=== PATIENT | male | born 1965 | race Two or more races ===

== ENCOUNTER → 2020-03-12 07:55 | Outpatient (BNVA) | payer OTHER, SELFPAY | PROVIDERS: PCP Internal Medicine; Visit Provider Internal Medicine | DX: I82.502 Chronic embolism and thrombosis of unspecified deep veins of left lower extremity (principal); Z51.81 Encounter for therapeutic drug level monitoring; Z79.01 Long term (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 of anticoagulants | CPT/HCPCS: 85610; 99211 ==

== ENCOUNTER → 2020-04-09 08:04 | Outpatient (BNVA) | payer OTHER, SELFPAY | PROVIDERS: PCP Internal Medicine; Visit Provider Internal Medicine | DX: I82.502 Chronic embolism and thrombosis of unspecified deep veins of left lower extremity (principal); Z51.81 Encounter for therapeutic drug level monitoring; Z79.01 Long term (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 of anticoagulants | CPT/HCPCS: 85610; 99211 ==

== ENCOUNTER → 2020-05-14 08:04 | Outpatient (BNVA) | payer OTHER, SELFPAY | PROVIDERS: PCP Internal Medicine; Visit Provider Internal Medicine | DX: I82.402 Acute embolism and thrombosis of unspecified deep veins of left lower extremity (principal); Z51.81 Encounter for therapeutic drug level monitoring; Z79.01 Long term (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 of anticoagulants | CPT/HCPCS: 85610; 99211 ==

== ENCOUNTER 2020-05-30 07:09 | Outpatient (REF) | payer OTHER, SELFPAY ==
[2020-05-30 07:58] LABS: MANUAL DIFF FLAG NO
[2020-05-30 08:14] LABS: Basophils Percent Auto 0.1 % (0-2); Eosinophils Percent Auto 0.1 % (0-4); Hematocrit 49.3 % (42-52); Hemoglobin 16.1 g/dl (14.0-18.0); Imm Gran Abs Auto 0.03 X10*3/uL (0.00-0.03); Imm Gran Pct Auto 0.4 % (0.0-0.4); Lymphocytes Absolute Auto 0.8 X10*3/uL (1.2-4.9); Lymphocytes Percent Auto 11.3 % (20-40); Mean Corpuscular HGB Conc 32.7 g/dl (31.0-36.0); Mean Corpuscular Hemoglobin 27.8 pg (27.0-33.0); Monocytes Absolute Auto 0.5 X10*3/uL (0.1-1.2); Monocytes Percent Auto 6.4 % (2-11); Neutrophils Absolute Auto 5.7 X10*3/uL (2.0-8.3); Neutrophils Percent Auto 81.7 % (45-73); Platelet Count 162 X10*3/uL (160-400); Red Cell Distribution Width 13.9 % (11.0-16.0); Retic HGB Equivalent 33.6 pg (30.0-35.0); Reticulocyte Percent 1.5 % (0.5-1.8); Reticulocytes Absolute 0.086 X10*6/uL (0.026-0.095)
[2020-05-30 08:43] LABS: Alanine Aminotransferase 38 U/L (0-40); Albumin Level 4.3 g/dL (3.5-5.0); Alkaline Phosphatase 111 U/L (39-117); Anion Gap 14 (12-20); Aspartate Amino Transferase 24 U/L (5-37); Bilirubin Total 1.1 mg/dL (0.0-1.0); Blood Urea Nitrogen 9 mg/dL (9-16); Calcium 9.1 mg/dL (8.4-10.2); Carbon Dioxide 25 mmol/L (22-29); Chloride 104 mmol/L (96-108); Cholesterol 205 mg/dL; Estimated Glomerular Filt Rate > 60; Glucose Random 118 mg/dL (60-115); HDL Cholesterol 63 mg/dL; Iron 56 mcg/dL (45-160); LDL Cholesterol Calculated 98 mg/dl; Percent Iron Saturation 17 % (15-50); Potassium 4.4 mmol/l (3.3-5.1); Sodium 139 mmol/L (135-145); Total Iron Binding Capacity 332 mcg/dL (228-428); Total Protein 7.8 g/dL (6.5-8.0); Triglycerides 220 mg/dL; Unsaturated Iron Binding 276 ug/dL
[2020-05-30 08:54] LABS: Erythrocyte Sedimentation Rate 5 MM/HR (0-15)
[2020-05-30 09:14] LABS: Ferritin 64 ng/mL (20-250); Free T4 (Free Thyroxine) 0.94 ng/dL (0.71-1.85); Prostate Specific Antigen Scr 1.64 ng/mL (<0.05-4.0); Thyroid Stimulating Hormone 0.23 uIU/mL (0.32-4.0)
[2020-05-30 10:07] LABS: Folate 10.9 ng/mL (> or = 4.0); Vitamin B12 564 pg/mL (200-900)
== END 2020-05-30 07:10 | disposition home or self-care (01) ==
LOC: HO.LAB 07:09
PROVIDERS: Visit Provider Internal Medicine
DX: K62.5 Hemorrhage of anus and rectum (principal); E78.00 Pure hypercholesterolemia, unspecified; D86.9 Sarcoidosis, unspecified; Z12.5 Encounter for screening for malignant neoplasm of prostate; I82.502 Chronic embolism and thrombosis of unspecified deep veins of left lower extremity; Z51.81 Encounter for therapeutic drug level monitoring; Z79.01 Long term (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 of anticoagulants
CPT/HCPCS: 36415; 80053; 80061; 82607; 82728; 82746; 83540; 84153; 84439; 84443; 85025; 85045; 85610; 85652; 99211

== ENCOUNTER → 2020-06-13 07:58 | Outpatient (BNVA) | payer OTHER, SELFPAY | PROVIDERS: PCP Internal Medicine; Visit Provider Internal Medicine | DX: I82.502 Chronic embolism and thrombosis of unspecified deep veins of left lower extremity (principal); Z51.81 Encounter for therapeutic drug level monitoring; Z79.01 Long term (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 of anticoagulants | CPT/HCPCS: 85610; 99211 ==

== ENCOUNTER → 2020-06-28 08:03 | Outpatient (BNVA) | payer OTHER, SELFPAY | PROVIDERS: PCP Internal Medicine; Visit Provider Internal Medicine | DX: I82.502 Chronic embolism and thrombosis of unspecified deep veins of left lower extremity (principal); Z51.81 Encounter for therapeutic drug level monitoring; Z79.01 Long term (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 of anticoagulants | CPT/HCPCS: 85610; 99211 ==

== ENCOUNTER 2020-07-03 05:56 | Outpatient (REF) | payer OTHER, SELFPAY ==
[2020-07-03 07:41] LABS: Estimated Average Glucose 120 mg/dL; Hemoglobin A1c % 5.8 %
[2020-07-03 08:36] LABS: Free T4 (Free Thyroxine) 0.93 ng/dL (0.71-1.85); Thyroid Stimulating Hormone 1.09 uIU/mL (0.32-4.0)
== END 2020-07-03 05:57 | disposition home or self-care (01) ==
LOC: HO.LAB 05:56
PROVIDERS: PCP Internal Medicine; Visit Provider Internal Medicine
DX: R79.89 Other specified abnormal findings of blood chemistry (principal)
CPT/HCPCS: 36415; 83036; 84439; 84443

== ENCOUNTER → 2020-07-17 08:00 | Outpatient (BNVA) | payer OTHER, SELFPAY | PROVIDERS: PCP Internal Medicine; Visit Provider Internal Medicine | DX: I82.402 Acute embolism and thrombosis of unspecified deep veins of left lower extremity (principal); Z51.81 Encounter for therapeutic drug level monitoring; Z79.01 Long term (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 of anticoagulants | CPT/HCPCS: 85610; 99211 ==

== ENCOUNTER → 2020-08-14 07:59 | Outpatient (BNVA) | payer OTHER, SELFPAY | PROVIDERS: PCP Internal Medicine; Visit Provider Internal Medicine | DX: I82.402 Acute embolism and thrombosis of unspecified deep veins of left lower extremity (principal); Z51.81 Encounter for therapeutic drug level monitoring; Z79.01 Long term (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 of anticoagulants | CPT/HCPCS: 85610; 99211 ==

== ENCOUNTER → 2020-09-11 08:01 | Outpatient (BNVA) | payer OTHER, SELFPAY | PROVIDERS: PCP Internal Medicine; Visit Provider Internal Medicine | DX: I82.402 Acute embolism and thrombosis of unspecified deep veins of left lower extremity (principal); Z51.81 Encounter for therapeutic drug level monitoring; Z79.01 Long term (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 of anticoagulants | CPT/HCPCS: 85610; 99211 ==

== ENCOUNTER → 2020-10-03 07:59 | Outpatient (BNVA) | payer OTHER, SELFPAY | PROVIDERS: PCP Internal Medicine; Visit Provider Internal Medicine | DX: I82.402 Acute embolism and thrombosis of unspecified deep veins of left lower extremity (principal); Z51.81 Encounter for therapeutic drug level monitoring; Z79.01 Long term (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 of anticoagulants | CPT/HCPCS: 85610; 99211 ==

== ENCOUNTER → 2020-10-15 07:57 | Outpatient (BNVA) | payer OTHER, SELFPAY | PROVIDERS: PCP Internal Medicine; Visit Provider Internal Medicine | DX: I82.402 Acute embolism and thrombosis of unspecified deep veins of left lower extremity (principal); Z51.81 Encounter for therapeutic drug level monitoring; Z79.01 Long term (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 of anticoagulants | CPT/HCPCS: 85610; 99211 ==

== ENCOUNTER → 2020-10-29 08:02 | Outpatient (BNVA) | payer OTHER, SELFPAY | PROVIDERS: PCP Internal Medicine; Visit Provider Internal Medicine | DX: I82.402 Acute embolism and thrombosis of unspecified deep veins of left lower extremity (principal); Z51.81 Encounter for therapeutic drug level monitoring; Z79.01 Long term (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 of anticoagulants | CPT/HCPCS: 85610; 99211 ==

== ENCOUNTER 2020-11-18 06:01 | Outpatient (REF) | payer OTHER, SELFPAY ==
--- NOTE | ~2020-11-18 | XR_ITS ---
EXAMINATION: XR CHEST CLINICAL INFORMATION: Cough COMPARISON: Previous chest x-ray June 2015 TECHNIQUE: 2 views of the chest were obtained. FINDINGS: The cardiac and mediastinal contours are stable. There is elevation of the right hemidiaphragm that is stable. There is atelectasis or small infiltrates at the lung bases, right greater than left. There are surgical clips at the right lung apex. There is no pleural effusion or pneumothorax. Bony structures are unremarkable. XR/XR chest 2V IMPRESSION: Marked elevation of the right hemidiaphragm. Atelectasis or small infiltrates at the lung bases, right greater than left.
== END 2020-11-18 06:02 | disposition home or self-care (01) ==
LOC: HO.XRAY 06:01
PROVIDERS: Visit Provider Internal Medicine
DX: R05 Cough (principal)
CPT/HCPCS: 71046

== ENCOUNTER → 2020-11-25 07:58 | Outpatient (BNVA) | payer OTHER, SELFPAY | PROVIDERS: PCP Internal Medicine; Visit Provider Internal Medicine | DX: I82.402 Acute embolism and thrombosis of unspecified deep veins of left lower extremity (principal); Z51.81 Encounter for therapeutic drug level monitoring; Z79.01 Long term (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 of anticoagulants | CPT/HCPCS: 85610; 99211 ==

== ENCOUNTER → 2020-12-26 08:04 | Outpatient (BNVA) | payer OTHER, SELFPAY | PROVIDERS: PCP Internal Medicine; Visit Provider Internal Medicine | DX: I82.402 Acute embolism and thrombosis of unspecified deep veins of left lower extremity (principal); Z51.81 Encounter for therapeutic drug level monitoring; Z79.01 Long term (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 of anticoagulants | CPT/HCPCS: 85610; 99211 ==

== ENCOUNTER → 2021-01-09 07:59 | Outpatient (BNVA) | payer OTHER, SELFPAY | PROVIDERS: PCP Internal Medicine; Visit Provider Internal Medicine | DX: I82.402 Acute embolism and thrombosis of unspecified deep veins of left lower extremity (principal); Z51.81 Encounter for therapeutic drug level monitoring; Z79.01 Long term (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 of anticoagulants | CPT/HCPCS: 85610; 99211 ==

== ENCOUNTER → 2021-01-14 15:26 | Outpatient (BNVA) | payer OTHER, SELFPAY | PROVIDERS: PCP Internal Medicine; Visit Provider Internal Medicine | DX: I82.402 Acute embolism and thrombosis of unspecified deep veins of left lower extremity (principal); Z51.81 Encounter for therapeutic drug level monitoring; Z79.01 Long term (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 of anticoagulants | CPT/HCPCS: 85610; 99211 ==

== ENCOUNTER → 2021-01-21 15:26 | Outpatient (BNVA) | payer OTHER, SELFPAY | PROVIDERS: PCP Internal Medicine; Visit Provider Internal Medicine | DX: I82.402 Acute embolism and thrombosis of unspecified deep veins of left lower extremity (principal); Z51.81 Encounter for therapeutic drug level monitoring; Z79.01 Long term (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 of anticoagulants | CPT/HCPCS: 85610; 99211 ==

== ENCOUNTER → 2021-02-04 15:19 | Outpatient (BNVA) | payer OTHER, SELFPAY | PROVIDERS: PCP Internal Medicine; Visit Provider Internal Medicine | DX: I82.402 Acute embolism and thrombosis of unspecified deep veins of left lower extremity (principal); Z51.81 Encounter for therapeutic drug level monitoring; Z79.01 Long term (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 of anticoagulants | CPT/HCPCS: 85610; 99211 ==

== ENCOUNTER 2021-02-06 05:57 | Outpatient (REF) | payer OTHER, SELFPAY ==
[2021-02-06 06:13] LABS: MANUAL DIFF FLAG NO
[2021-02-06 07:20] LABS: Basophils Percent Auto 0.3 % (0-2); Eosinophils Percent Auto 0.5 % (0-4); Hematocrit 47.6 % (42-52); Hemoglobin 15.8 g/dl (14.0-18.0); Imm Gran Abs Auto 0.02 X10*3/uL (0.00-0.03); Imm Gran Pct Auto 0.3 % (0.0-0.4); Lymphocytes Absolute Auto 0.7 X10*3/uL (1.2-4.9); Lymphocytes Percent Auto 12.1 % (20-40); Mean Corpuscular HGB Conc 33.2 g/dl (31.0-36.0); Mean Corpuscular Hemoglobin 28.3 pg (27.0-33.0); Mean Corpuscular Volume 85.3 fL (80-98); Monocytes Absolute Auto 0.4 X10*3/uL (0.1-1.2); Neutrophils Absolute Auto 4.7 X10*3/uL (2.0-8.3); Neutrophils Percent Auto 80.8 % (45-73); Platelet Count 152 X10*3/uL (160-400); Red Blood Count 5.58 X10*6/uL (4.60-5.80); Red Cell Distribution Width 14.1 % (11.0-16.0); White Blood Count 5.8 X10*3/uL (4.8-10.8)
[2021-02-06 08:02] LABS: Alanine Aminotransferase 42 U/L (0-40); Albumin Level 4.2 g/dL (3.5-5.0); Alkaline Phosphatase 97 U/L (39-117); Anion Gap 13 (12-20); Aspartate Amino Transferase 32 U/L (5-37); Bilirubin Total 2.5 mg/dL (0.0-1.0); Blood Urea Nitrogen 12 mg/dL (9-16); Calcium 10.1 mg/dL (8.4-10.2); Carbon Dioxide 28 mmol/L (22-29); Chloride 105 mmol/L (96-108); Cholesterol 204 mg/dL; Estimated Glomerular Filt Rate > 60; Glucose Random 124 mg/dL (60-115); HDL Cholesterol 63 mg/dL; LDL Cholesterol Calculated 120 mg/dl; Potassium 5.5 mmol/L (3.3-5.1); Sodium 140 mmol/L (135-145); Total Protein 7.8 g/dL (6.5-8.0); Triglycerides 105 mg/dL
[2021-02-06 08:09] LABS: Free T4 (Free Thyroxine) 0.95 ng/dL (0.71-1.85); Thyroid Stimulating Hormone 0.34 uIU/mL (0.32-4.0)
[2021-02-06 08:27] LABS: Estimated Average Glucose 126 mg/dL
== END 2021-02-06 05:58 | disposition home or self-care (01) ==
LOC: HO.LAB 05:57
PROVIDERS: PCP Internal Medicine; Visit Provider Internal Medicine
DX: E78.00 Pure hypercholesterolemia, unspecified (principal)
CPT/HCPCS: 36415; 80053; 80061; 83036; 84439; 84443; 85025

== ENCOUNTER → 2021-02-13 15:25 | Outpatient (BNVA) | payer OTHER, SELFPAY | PROVIDERS: PCP Internal Medicine; Visit Provider Internal Medicine | DX: I82.402 Acute embolism and thrombosis of unspecified deep veins of left lower extremity (principal); Z51.81 Encounter for therapeutic drug level monitoring; Z79.01 Long term (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 of anticoagulants | CPT/HCPCS: 85610; 99211 ==

== ENCOUNTER → 2021-02-20 15:36 | Outpatient (BNVA) | payer OTHER, SELFPAY | PROVIDERS: PCP Internal Medicine; Visit Provider Internal Medicine | DX: I82.402 Acute embolism and thrombosis of unspecified deep veins of left lower extremity (principal); Z51.81 Encounter for therapeutic drug level monitoring; Z79.01 Long term (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 of anticoagulants | CPT/HCPCS: 85610; 99211 ==

== ENCOUNTER → 2021-03-06 15:36 | Outpatient (BNVA) | payer OTHER, SELFPAY | PROVIDERS: PCP Internal Medicine; Visit Provider Internal Medicine | DX: I82.402 Acute embolism and thrombosis of unspecified deep veins of left lower extremity (principal); Z51.81 Encounter for therapeutic drug level monitoring; Z79.01 Long term (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 of anticoagulants | CPT/HCPCS: 85610 ==

== ENCOUNTER 2021-03-13 15:34 | Outpatient (REF) | payer OTHER, SELFPAY ==
[2021-03-13 16:22] LABS: Prothrombin Time 66.1 SEC (9.9-13.0)
[2021-03-13 16:23] LABS: INTERNATIONAL NORM RATIO 5.6 (0.9-1.1)
== END 2021-03-13 15:35 | disposition home or self-care (01) ==
LOC: HO.LAB 15:34
PROVIDERS: PCP Internal Medicine; Visit Provider Internal Medicine
DX: I82.402 Acute embolism and thrombosis of unspecified deep veins of left lower extremity (principal); Z51.81 Encounter for therapeutic drug level monitoring; Z79.01 Long term (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 of anticoagulants
CPT/HCPCS: 36415; 85610; 99212

== ENCOUNTER → 2021-03-17 15:16 | Outpatient (BNVA) | payer OTHER, SELFPAY | PROVIDERS: PCP Internal Medicine; Visit Provider Internal Medicine | DX: I82.402 Acute embolism and thrombosis of unspecified deep veins of left lower extremity (principal); Z51.81 Encounter for therapeutic drug level monitoring; Z79.01 Long term (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 of anticoagulants | CPT/HCPCS: 85610; 99211 ==

== ENCOUNTER 2021-03-19 05:58 | Outpatient (REF) | payer OTHER, SELFPAY ==
[2021-03-19 08:20] LABS: Anion Gap 13 (12-20); Bilirubin Direct 0.7 mg/dL (0.0-0.5); Blood Urea Nitrogen 13 mg/dL (9-16); Calcium 9.3 mg/dL (8.4-10.2); Carbon Dioxide 29 mmol/L (22-29); Chloride 104 mmol/L (96-108); Estimated Glomerular Filt Rate > 60; Glucose Random 128 mg/dL (60-115); Potassium 4.6 mmol/L (3.3-5.1); Sodium 141 mmol/L (135-145)
[2021-03-19 08:29] LABS: Lactate Dehydrogenase 217 U/L (118-273)
[2021-03-19 08:39] LABS: Prostate Specific Antigen Scr 2.23 ng/mL (<0.05-4.0)
[2021-03-20 19:32] LABS: Haptoglobin 168 mg/dL (43-212)
== END 2021-03-19 05:59 | disposition home or self-care (01) ==
LOC: HO.LAB 05:58
PROVIDERS: PCP Internal Medicine; Visit Provider Internal Medicine
DX: Z12.5 Encounter for screening for malignant neoplasm of prostate (principal); R79.89 Other specified abnormal findings of blood chemistry; I82.409 Acute embolism and thrombosis of unspecified deep veins of unspecified lower extremity; E87.5 Hyperkalemia
CPT/HCPCS: 36415; 80048; 82248; 83010; 83615; 84153

== ENCOUNTER → 2021-03-24 16:08 | Outpatient (BNVA) | payer OTHER, SELFPAY | PROVIDERS: PCP Internal Medicine; Visit Provider Internal Medicine | DX: I82.402 Acute embolism and thrombosis of unspecified deep veins of left lower extremity (principal); Z51.81 Encounter for therapeutic drug level monitoring; Z79.01 Long term (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 of anticoagulants | CPT/HCPCS: 85610; 99211 ==

== ENCOUNTER 2021-03-26 15:40 | Outpatient (REF) | payer OTHER, SELFPAY ==
--- NOTE | ~2021-03-26 | US_ITS ---
EXAMINATION: US VENOUS ULTRASOUND WITH DOPPLER LOWER EXTREMITY, RIGHT CLINICAL INFORMATION: Right lower extremity pain. Assess for occult DVT COMPARISON: None TECHNIQUE: Ultrasound of the deep veins is performed from the hip to the calf with compression sonography and color and pulse Doppler assessment. Spectral analysis with color-flow imaging is performed. FINDINGS: There is normal venous compression and respiratory variation and augmented flow. The visualized common femoral vein, superficial femoral vein, profunda femoral vein, popliteal vein, and the trifurcation region shows no evidence of deep venous thrombosis. No popliteal fossa cyst. Incidental node right inguinal region shows normal cody architecture and short axis dimension only 0.7 cm. US/US venous duplex LE RT IMPRESSION: No DVT demonstrated in the right lower extremity.
== END 2021-03-26 15:41 | disposition home or self-care (01) ==
LOC: HO.US 15:40
PROVIDERS: PCP Internal Medicine; Visit Provider Internal Medicine
DX: M79.604 Pain in right leg (principal)
CPT/HCPCS: 93971

== ENCOUNTER → 2021-04-07 08:12 | Outpatient (BNVA) | payer OTHER, SELFPAY | PROVIDERS: PCP Internal Medicine; Visit Provider Internal Medicine | DX: I82.402 Acute embolism and thrombosis of unspecified deep veins of left lower extremity (principal); Z51.81 Encounter for therapeutic drug level monitoring; Z79.01 Long term (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 of anticoagulants | CPT/HCPCS: 85610; 99211 ==

== ENCOUNTER 2021-04-09 07:11 | Outpatient (REF) | payer OTHER, SELFPAY ==
--- NOTE | ~2021-04-09 | US_ITS ---
EXAMINATION: US ABDOMEN COMPLETE CLINICAL INFORMATION: Other specified abnormal findings of blood chemistry. COMPARISON: Ultrasound 06/02/2007 TECHNIQUE: Real-time imaging of the abdominal viscera. Technically limited study secondary to bowel gas and body habitus. FINDINGS: Limited exam due to body habitus. PANCREAS: The head and the body of the pancreas are homogeneous in echotexture. ABDOMINAL AORTA: The proximal, mid, and distal segments are normal in caliber. INFERIOR VENA CAVA: Visualized portions are normal. LIVER: Normal. The liver is normal in size. The liver contour is normal. Parenchymal echogenicity is normal. Previously visualized cyst is not visualized. There is no intrahepatic biliary duct dilatation seen. GALLBLADDER: Normal. The gallbladder is physiologically distended without evidence of stones, sludge, polyps, wall thickening or pericholecystic fluid. COMMON BILE DUCT: Normal in caliber measuring 0.4 cm in diameter. RIGHT KIDNEY: Normal. No hydronephrosis. No renal calculi or focal parenchymal lesions. The kidney measures 9.7 cm in maximum dimension. LEFT KIDNEY: There is an echogenic stone in the upper pole measuring 0.3 x 0.2 cm. No caliectasis, hydronephrosis or focal parenchymal lesions. The kidney measures 9.5 cm in maximum dimension. SPLEEN: Normal. The spleen measures 9.2 cm in maximum dimension. FREE FLUID: None. US/US abdomen complete IMPRESSION: Small nonobstructive echogenic stone upper pole left kidney. Previously seen hepatic cyst in 2007 is not visualized at this time.
--- NOTE | 2021-04-15 15:06 | P.EN_ITS ---
Patient walked into the clinic today asking for Lovenox prescription. He is going to be scheduled for colonoscopy on . He usually gets bridged with Lovenox both pre and postoperatively because of protein S deficiency. I went over home dosing of Lovenox and a prescription for this was sent to [facility].
== END 2021-04-09 07:12 | disposition home or self-care (01) ==
LOC: HO.US 07:11
PROVIDERS: PCP Internal Medicine; Visit Provider Internal Medicine
DX: R79.89 Other specified abnormal findings of blood chemistry (principal); I82.409 Acute embolism and thrombosis of unspecified deep veins of unspecified lower extremity
CPT/HCPCS: 76700

== ENCOUNTER → 2021-04-15 14:38 | Outpatient (BNVA) | payer OTHER, SELFPAY | PROVIDERS: PCP Internal Medicine; Visit Provider Internal Medicine | DX: I82.402 Acute embolism and thrombosis of unspecified deep veins of left lower extremity (principal); Z51.81 Encounter for therapeutic drug level monitoring; Z79.01 Long term (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 of anticoagulants | CPT/HCPCS: 85610; 99211 ==

== ENCOUNTER → 2021-04-22 07:59 | Outpatient (BNVA) | payer OTHER, SELFPAY | PROVIDERS: PCP Internal Medicine; Visit Provider Internal Medicine | DX: I82.402 Acute embolism and thrombosis of unspecified deep veins of left lower extremity (principal); Z51.81 Encounter for therapeutic drug level monitoring; Z79.01 Long term (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 of anticoagulants | CPT/HCPCS: 85610; 99211 ==

== ENCOUNTER → 2021-04-29 15:47 | Outpatient (BNVA) | payer OTHER, SELFPAY | PROVIDERS: PCP Internal Medicine; Visit Provider Internal Medicine | DX: I82.402 Acute embolism and thrombosis of unspecified deep veins of left lower extremity (principal); Z51.81 Encounter for therapeutic drug level monitoring; Z79.01 Long term (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 of anticoagulants | CPT/HCPCS: 85610; 99211 ==

== ENCOUNTER 2021-05-05 06:56 | Day surgery (SDC) | payer OTHER, SELFPAY ==
[2021-04-28 15:42] VITALS: BMI 29.2
--- NOTE | 2021-05-01 09:32 | P.CONAN_ITS ---
Documented by User: Mya Landrum NP 05/01/21 09:33 HPI - Anesthesia Eval Consult details Narrative: 55yo M for Colonoscopy Coumadin for DVT PMFSH Active Problems Active Problems: All Active Problems (Updated 04/10/21 @ 07:39 by Jaz Myers MD) Current use of anticoagulant therapy (Acute) Rectal bleeding (Acute) Low TSH level (Acute) Cough (Acute) Rectal bleeding (Acute) Impaired glucose tolerance (Acute) DVT (deep venous thrombosis) (Acute) Hyperkalemia (Acute) Overweight (BMI 25.0-29.9) (Acute) LFT elevation (Acute) Annual physical exam (Acute) Right inguinal hernia (Acute) Leg pain, right (Acute) Renal calculus, left (Acute) Protein S deficiency (Acute) Hypercholesterolemia (Acute) BPH (benign prostatic hyperplasia) (Acute) Sarcoid (Acute) Past Medical History Medical History (Updated 04/10/21 @ 07:39 by Jaz Myers MD) BPH (benign prostatic hyperplasia) DVT (deep venous thrombosis) Glaucoma Hypercholesterolemia Protein S deficiency Sarcoid Thrombocytopenia Vitamin D deficiency Family History Family History Mother No problems noted. Father Medical history unknown Daughter In good health Sister In good health Surgical History Surgical History (Updated 04/28/21 @ 15:44 by Mami Solares RN) History of appendectomy History of sinus surgery History of umbilical hernia repair Hx of colonoscopy Social History Social History (Updated 03/24/21 @ 18:11 by Jaz Myers MD) Housing: House Alcohol intake: current Alcohol intake frequency: holidays/special occasions only Patient Tobacco Use Status: Never used Tobacco e-Cigarette/Vaping Use: Never Used Second Hand Smoke Exposure: No Use of substances other than those prescribed or required for medical reasons: No Are you DNR?: No Advance Directives: No Advance Directives Information Provided: Yes Advance Directives on File: No service: No Current occupational status: employed Meds Allergies Allergy/AdvReac Type Severity Reaction Status Date / Time No Known Allergies Allergy Verified 04/29/21 15:47 [No Known Allergies*] Home Medications Medication Instructions Recorded Confirmed Last Taken Type dorzolamide 22.3 mg-timolol 6.8 1 drp OPHTHALMIC-RIGHT Q12H 12/26/20 04/29/21 Unknown History mg/mL eye drops prednisone 20 mg tablet 20 mg PO BEDTIME 03/06/21 04/29/21 Unknown History bisacodyl 5 mg tablet,delayed mg PO 03/24/21 04/29/21 Unknown History release polyethylene glycol 3350 17 g PO 03/24/21 04/29/21 Unknown History gram/dose oral powder (Gavilax) Exam Exam Date and Time: May 01, 2021 0932 Height,Weight and Vital Signs: Height 5 ft 4 in Weight 77.111 kg Pertinent Lab Results Pertinent Lab Results: Laboratory Tests 02/06/21 03/19/21 06:10 06:04 WBC 5.8 Hgb 15.8 Hct 47.6 Plt Count 152 L Sodium 141 Potassium 4.6 Chloride 104 Carbon Dioxide 29 BUN 13 Creatinine 1.06 Assessment and Plan Assessment Anesthesia Assessment: Chart Reviewed Documented by User: Reinaldo Drake MD 05/05/21 07:16 [facility], [facility] Past Medical History Medical History (Updated 04/10/21 @ 07:39 by Jaz Myers MD) BPH (benign prostatic hyperplasia) DVT (deep venous thrombosis) Glaucoma Hypercholesterolemia Protein S deficiency Sarcoid Thrombocytopenia Vitamin D deficiency Family History Family History Mother No problems noted. Father Medical history unknown Daughter In good health Sister In good health Family history of problems with anesthesia: No Surgical History Surgical History (Updated 04/28/21 @ 15:44 by Mami Solares RN) History of appendectomy History of sinus surgery History of umbilical hernia repair Hx of colonoscopy History of Problems with Anesthesia: No Social History Social History (Updated 03/24/21 @ 18:11 by Jaz Myers MD) Housing: House Alcohol intake: current Alcohol intake frequency: holidays/special occasions only Patient Tobacco Use Status: Never used Tobacco e-Cigarette/Vaping Use: Never Used Second Hand Smoke Exposure: No Use of substances other than those prescribed or required for medical reasons: No Are you DNR?: No Advance Directives: No Advance Directives Information Provided: Yes Advance Directives on File: No service: No Current occupational status: employed Meds Allergies Allergy/AdvReac Type Severity Reaction Status Date / Time No Known Allergies Allergy Verified 04/29/21 15:47 [No Known Allergies*] Home Medications Medication Instructions Recorded Confirmed Last Taken Type dorzolamide 22.3 mg-timolol 6.8 1 drp OPHTHALMIC-RIGHT Q12H 12/26/20 04/29/21 Unknown History mg/mL eye drops prednisone 20 mg tablet 20 mg PO BEDTIME 03/06/21 04/29/21 Unknown History bisacodyl 5 mg tablet,delayed mg PO 03/24/21 04/29/21 Unknown History release polyethylene glycol 3350 17 g PO 03/24/21 04/29/21 Unknown History gram/dose oral powder (Gavilax) Exam Airway Mallampati Class: II TM Dist: >3cm Neck ROM: Full Assessment and Plan Assessment Anesthesia Assessment: Anesthesia Plan Discussed Final Anesthetic Review Family History of Problems with Anesthesia: No History of Problems with Anesthesia: No NPO: Yes ASA Class: III Final Preanesthetic Review: No Changes in Pt Med Stat, Meds/Allgs Chart Reviewed, Consent Obtained/Reviewed and Anes Risks/Benef Reviewed Patient Risk: Intermediate Procedure Risk: Low Anesthetic Plan Anesthetic Plan: MAC: Disposition: Standard PACU
[2021-05-05 07:09] VITALS: BP 144/89; PULSE 92; RESP 16; TEMP 37.4; O2SAT 95
[2021-05-05] MEDS: Lactated Ringers 1,000 ML 100 ML IVCONT (07:15)
[2021-05-05 07:35] LABS: Prothrombin Time 11.6 SEC (9.9-13.0)
[2021-05-05 08:30] VITALS: BP 98/62; PULSE 87; RESP 20; TEMP 36.3; O2SAT 99
--- NOTE | 2021-05-05 08:41 | PM.OP ---
Brief Operative Note Date of Service: 05/05/21 Pre-op diagnosis: Rectal bleeding, Hx of polyp Post-op diagnosis: other (Colon polyp, Internal hemorrhoids) Procedure: Colonoscopy to the cecum and TI with biopsies Surgeon: Mason Rock Anesthesia: MAC Was an Laboratory Mechanic Helper used for this Procedure?: No Estimated blood loss (mL): 2.0 Pathology: other (A. Ascending colon polyp) Condition: stable Disposition: PACU
[2021-05-05 08:45] VITALS: BP 100/65; PULSE 79; RESP 20; TEMP 36.3; O2SAT 96
[2021-05-05 09:03] VITALS: BP 104/71
--- NOTE | 2021-05-05 09:31 | OP_ITS ---
SURGEON: Mason Rock MD INDICATIONS: The patient presents for followup of personal history of tubular adenoma of the colon and intermittent hematochezia. Full consent obtained from him for this, including risks of bleeding and perforation. PREOPERATIVE DIAGNOSIS: Personal history of tubular adenoma of the colon and rectal bleeding. POSTOPERATIVE DIAGNOSIS: Personal history of tubular adenoma of the colon and rectal bleeding, small colon polyp, internal hemorrhoids, mild diverticulosis. PROCEDURE PERFORMED: Colonoscopy to the cecum and terminal ileum with biopsy and removal of polyp. ESTIMATED BLOOD LOSS: COMPLICATIONS: ANESTHESIA: Monitored anesthesia care. ASSISTANTS: SPECIMENS: DESCRIPTION OF PROCEDURE: The patient was placed in the left lateral decubitus position. Digital rectal exam revealed no abnormalities. The Olympus video pediatric colonoscope was entered into the rectum and advanced easily to the cecum. Once in the cecum, I did identify normal-appearing cecal pouch with appendiceal orifice and a normal-appearing ileocecal valve. The terminal ileum was cannulated and appeared normal. The scope was withdrawn back in the colon. The entire cecum and ileocecal valve appeared normal. The scope was then slowly withdrawn assessing all mucosal surfaces carefully. Preparation was excellent. In the proximal ascending colon, there was approximately 2 or 3 mm polyp, which was biopsied and completely removed with cold biopsy forceps. I did not visualize any other polyps, colitis, or angiodysplasia. There was a mild amount of sigmoid diverticulosis. Once in the rectum, scope was retroflexed visualizing internal hemorrhoids. These were somewhat friable. These were also visualized in the forward viewing position in the anal canal as well. The remainder of the rectum appeared normal. The scope was withdrawn from the patient. He tolerated the procedure well and was returned to recovery area in stable condition. IMPRESSION: 1. Small colon polyp, status post biopsy removal. 2. Mild sigmoid diverticulosis. 3. Prominent internal hemorrhoids. PLAN: The results of biopsy will be checked. Given his previous history, I would recommend a repeat colonoscopy in 3 years for further screening and surveillance. In regard to his hemorrhoids and ongoing bleeding, I have recommended that he see Dr. Serrato for that. In the meantime, he was advised to resume his Coumadin today at the normal dose and have it adjusted either by the [facility] or by Dr. Calabrese. He was also advised to resume his Lovenox tomorrow and have that adjusted per the [facility] or Dr. Calabrese as well. He will otherwise see me on a p.r.n. basis. MD ALLISON Lara/ERMELINDA / [id number]
== END 2021-05-05 09:31 | disposition home or self-care (01) ==
PROVIDERS: Nurse Practitioner; PCP Internal Medicine; Visit Provider Internal Medicine
PROC: 0DJD8ZZ Inspection of Lower Intestinal Tract, Via Natural or Artificial Opening Endoscopic (ICD-10-PCS; CPT 45378; principal; 2021-05-05 07:30)
DX: K62.5 Hemorrhage of anus and rectum (principal); Z86.010 Personal history of colon polyps; K63.5 Polyp of colon; K64.8 Other hemorrhoids; D68.59 Other primary thrombophilia; E55.9 Vitamin D deficiency, unspecified; D86.89 Sarcoidosis of other sites; Z79.52 Long term (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 of systemic steroids; Z86.718 Personal history of other venous thrombosis and embolism; Z79.01 Long term (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 of anticoagulants
CPT/HCPCS: 45380; 36415; 85610; 88305

== ENCOUNTER → 2021-05-08 14:52 | Outpatient (BNVA) | payer OTHER, SELFPAY | PROVIDERS: PCP Internal Medicine; Visit Provider Internal Medicine | DX: I82.402 Acute embolism and thrombosis of unspecified deep veins of left lower extremity (principal); Z51.81 Encounter for therapeutic drug level monitoring; Z79.01 Long term (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 of anticoagulants | CPT/HCPCS: 85610; 99211 ==

== ENCOUNTER → 2021-05-13 14:46 | Outpatient (BNVA) | payer OTHER, SELFPAY | PROVIDERS: PCP Internal Medicine; Visit Provider Internal Medicine | DX: I82.402 Acute embolism and thrombosis of unspecified deep veins of left lower extremity (principal); Z51.81 Encounter for therapeutic drug level monitoring; Z79.01 Long term (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 of anticoagulants | CPT/HCPCS: 85610; 99211 ==

== ENCOUNTER → 2021-05-16 08:15 | Outpatient (BNVA) | payer OTHER, SELFPAY | PROVIDERS: PCP Internal Medicine; Visit Provider Internal Medicine | DX: I82.402 Acute embolism and thrombosis of unspecified deep veins of left lower extremity (principal); Z51.81 Encounter for therapeutic drug level monitoring; Z79.01 Long term (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 of anticoagulants | CPT/HCPCS: 85610; 99211 ==

== ENCOUNTER → 2021-05-23 14:54 | Outpatient (BNVA) | payer OTHER, SELFPAY | PROVIDERS: PCP Internal Medicine; Visit Provider Internal Medicine | DX: I82.402 Acute embolism and thrombosis of unspecified deep veins of left lower extremity (principal); Z51.81 Encounter for therapeutic drug level monitoring; Z79.01 Long term (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 of anticoagulants | CPT/HCPCS: 85610; 99211 ==

== ENCOUNTER → 2021-05-30 14:55 | Outpatient (BNVA) | payer OTHER, SELFPAY | PROVIDERS: PCP Internal Medicine; Visit Provider Internal Medicine | DX: I82.402 Acute embolism and thrombosis of unspecified deep veins of left lower extremity (principal); Z51.81 Encounter for therapeutic drug level monitoring; Z79.01 Long term (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 of anticoagulants | CPT/HCPCS: 85610; 99211 ==

== ENCOUNTER → 2021-06-12 15:25 | Outpatient (BNVA) | payer OTHER, SELFPAY | PROVIDERS: PCP Internal Medicine; Referring Provider Internal Medicine; Visit Provider Surgery | DX: K64.8 Other hemorrhoids (principal); K64.4 Residual hemorrhoidal skin tags | CPT/HCPCS: 46600; 99202 ==

== ENCOUNTER → 2021-06-13 14:47 | Outpatient (BNVA) | payer OTHER, SELFPAY | PROVIDERS: PCP Internal Medicine; Visit Provider Internal Medicine | DX: I82.402 Acute embolism and thrombosis of unspecified deep veins of left lower extremity (principal); Z51.81 Encounter for therapeutic drug level monitoring; Z79.01 Long term (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 of anticoagulants | CPT/HCPCS: 85610; 99211 ==

== ENCOUNTER → 2021-06-26 14:49 | Outpatient (BNVA) | payer OTHER, SELFPAY | PROVIDERS: PCP Internal Medicine; Visit Provider Internal Medicine | DX: I82.402 Acute embolism and thrombosis of unspecified deep veins of left lower extremity (principal); Z51.81 Encounter for therapeutic drug level monitoring; Z79.01 Long term (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 of anticoagulants | CPT/HCPCS: 85610; 99211 ==

== ENCOUNTER → 2021-07-10 14:52 | Outpatient (BNVA) | payer OTHER, SELFPAY | PROVIDERS: PCP Internal Medicine; Visit Provider Internal Medicine | DX: I82.402 Acute embolism and thrombosis of unspecified deep veins of left lower extremity (principal); Z51.81 Encounter for therapeutic drug level monitoring; Z79.01 Long term (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 of anticoagulants | CPT/HCPCS: 85610; 99211 ==

== ENCOUNTER → 2021-07-24 14:59 | Outpatient (BNVA) | payer OTHER, SELFPAY | PROVIDERS: PCP Internal Medicine; Visit Provider Internal Medicine | DX: I82.402 Acute embolism and thrombosis of unspecified deep veins of left lower extremity (principal); Z79.01 Long term (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 of anticoagulants; Z51.81 Encounter for therapeutic drug level monitoring | CPT/HCPCS: 85610; 99211 ==

== ENCOUNTER → 2021-08-07 14:46 | Outpatient (BNVA) | payer OTHER, SELFPAY | PROVIDERS: PCP Internal Medicine; Visit Provider Internal Medicine | DX: I82.402 Acute embolism and thrombosis of unspecified deep veins of left lower extremity (principal); Z51.81 Encounter for therapeutic drug level monitoring; Z79.01 Long term (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 of anticoagulants | CPT/HCPCS: 85610; 99211 ==

== ENCOUNTER → 2021-08-21 14:46 | Outpatient (BNVA) | payer OTHER, SELFPAY | PROVIDERS: PCP Internal Medicine; Visit Provider Internal Medicine | DX: I82.402 Acute embolism and thrombosis of unspecified deep veins of left lower extremity (principal); Z79.01 Long term (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 of anticoagulants; Z51.81 Encounter for therapeutic drug level monitoring | CPT/HCPCS: 85610; 99211 ==

== ENCOUNTER → 2021-09-04 14:47 | Outpatient (BNVA) | payer OTHER, SELFPAY | PROVIDERS: PCP Internal Medicine; Visit Provider Internal Medicine | DX: I82.402 Acute embolism and thrombosis of unspecified deep veins of left lower extremity (principal); Z79.01 Long term (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 of anticoagulants; Z51.81 Encounter for therapeutic drug level monitoring | CPT/HCPCS: 85610 ==

== ENCOUNTER → 2021-09-18 14:51 | Outpatient (BNVA) | payer OTHER, SELFPAY | PROVIDERS: PCP Internal Medicine; Visit Provider Internal Medicine | DX: I82.402 Acute embolism and thrombosis of unspecified deep veins of left lower extremity (principal); Z79.01 Long term (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 of anticoagulants; Z51.81 Encounter for therapeutic drug level monitoring | CPT/HCPCS: 85610; 99211 ==

== ENCOUNTER → 2021-10-02 14:49 | Outpatient (BNVA) | payer OTHER, SELFPAY | PROVIDERS: PCP Internal Medicine; Visit Provider Internal Medicine | DX: I82.402 Acute embolism and thrombosis of unspecified deep veins of left lower extremity (principal); Z79.01 Long term (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 of anticoagulants; Z51.81 Encounter for therapeutic drug level monitoring | CPT/HCPCS: 85610; 99211 ==

== ENCOUNTER → 2021-10-16 14:38 | Outpatient (BNVA) | payer OTHER, SELFPAY | PROVIDERS: PCP Internal Medicine; Visit Provider Internal Medicine | DX: I82.402 Acute embolism and thrombosis of unspecified deep veins of left lower extremity (principal); Z79.01 Long term (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 of anticoagulants; Z51.81 Encounter for therapeutic drug level monitoring | CPT/HCPCS: 85610; 99211 ==

== ENCOUNTER → 2021-10-30 15:11 | Outpatient (BNVA) | payer OTHER, SELFPAY | PROVIDERS: PCP Internal Medicine; Visit Provider Internal Medicine | DX: I82.402 Acute embolism and thrombosis of unspecified deep veins of left lower extremity (principal); Z79.01 Long term (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 of anticoagulants; Z51.81 Encounter for therapeutic drug level monitoring | CPT/HCPCS: 85610; 99211 ==

== ENCOUNTER → 2021-11-13 15:46 | Outpatient (BNVA) | payer OTHER, SELFPAY | PROVIDERS: PCP Internal Medicine; Visit Provider Internal Medicine | DX: I82.402 Acute embolism and thrombosis of unspecified deep veins of left lower extremity (principal); Z51.81 Encounter for therapeutic drug level monitoring; Z79.01 Long term (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 of anticoagulants | CPT/HCPCS: 85610; 99211 ==

== ENCOUNTER → 2021-11-20 15:51 | Outpatient (BNVA) | payer OTHER, SELFPAY | PROVIDERS: PCP Internal Medicine; Visit Provider Internal Medicine | DX: I82.402 Acute embolism and thrombosis of unspecified deep veins of left lower extremity (principal); Z51.81 Encounter for therapeutic drug level monitoring; Z79.01 Long term (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 of anticoagulants | CPT/HCPCS: 85610; 99211 ==

== ENCOUNTER → 2021-11-27 15:56 | Outpatient (BNVA) | payer OTHER, SELFPAY | PROVIDERS: PCP Internal Medicine; Visit Provider Internal Medicine | DX: I82.402 Acute embolism and thrombosis of unspecified deep veins of left lower extremity (principal); Z51.81 Encounter for therapeutic drug level monitoring; Z79.01 Long term (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 of anticoagulants | CPT/HCPCS: 85610; 99211 ==

== ENCOUNTER 2021-12-01 05:55 | Outpatient (REF) | payer OTHER, SELFPAY ==
[2021-12-01 07:45] LABS: Basophils Percent Auto 0.2 % (0-2); Eosinophils Percent Auto 0.3 % (0-4); Hematocrit 38.5 % (42.0-52.0); Hemoglobin 12.3 g/dl (14.0-18.0); Imm Gran Abs Auto 0.03 X10*3/uL (0.00-0.03); Imm Gran Pct Auto 0.5 % (0.0-0.4); Lymphocytes Absolute Auto 0.4 X10*3/uL (1.2-4.9); Lymphocytes Percent Auto 6.2 % (20-40); MANUAL DIFF FLAG SCAN; Mean Corpuscular HGB Conc 31.9 g/dl (31.0-36.0); Mean Corpuscular Hemoglobin 28.4 pg (27.0-33.0); Mean Corpuscular Volume 88.9 fL (80.0-98.0); Mean Platelet Volume 10.4 fL (9.4-12.4); Monocytes Absolute Auto 0.2 X10*3/uL (0.1-1.2); Monocytes Percent Auto 2.7 % (2-11); Neutrophils Absolute Auto 5.9 x10*3/uL (2.0-8.3); Neutrophils Percent Auto 90.1 % (45-73); Platelet Count 185 X10*3/uL (160-400); Red Blood Count 4.33 X10*6/uL (4.60-5.80); Red Cell Distribution Width 15.8 % (11.0-16.0); SCAN SMEAR FLAG 1; White Blood Count 6.6 X10*3/uL (4.8-10.8)
[2021-12-01 07:51] LABS: INTERNATIONAL NORM RATIO 2.8 (0.9-1.1); Prothrombin Time 33.5 SEC (10.0-13.1)
[2021-12-01 08:01] LABS: Estimated Average Glucose 120 mg/dL; Hemoglobin A1c % 5.8 %
[2021-12-01 08:14] LABS: SLIDE REVIEW VERIFIED
[2021-12-01 08:44] LABS: Alanine Aminotransferase 34 U/L (0-40); Albumin Level 3.8 g/dL (3.5-5.0); Alkaline Phosphatase 87 U/L (39-117); Anion Gap 12 (12-20); Aspartate Amino Transferase 31 U/L (5-37); Bilirubin Total 4.7 mg/dL (0.0-1.0); Blood Urea Nitrogen 19 mg/dL (9-16); Calcium 8.7 mg/dL (8.4-10.2); Carbon Dioxide 27 mmol/L (22-29); Chloride 105 mmol/L (96-108); Estimated Glomerular Filt Rate > 60; Glucose Random 149 mg/dL (60-115); Potassium 4.7 mmol/L (3.3-5.1); Sodium 139 mmol/L (135-145); Total Protein 6.8 g/dL (6.5-8.0)
[2021-12-01 08:50] LABS: Free T4 (Free Thyroxine) 1.03 ng/dL (0.71-1.85); Thyroid Stimulating Hormone 0.41 uIU/mL (0.32-4.0)
== END 2021-12-01 05:56 | disposition home or self-care (01) ==
LOC: HO.LAB 05:55
PROVIDERS: PCP Internal Medicine; Visit Provider Internal Medicine
DX: R73.02 Impaired glucose tolerance (oral) (principal); I82.409 Acute embolism and thrombosis of unspecified deep veins of unspecified lower extremity
CPT/HCPCS: 36415; 80053; 83036; 84439; 84443; 85025; 85610

== ENCOUNTER → 2021-12-04 08:05 | Outpatient (BNVA) | payer OTHER, SELFPAY | PROVIDERS: PCP Internal Medicine; Visit Provider Internal Medicine | DX: I82.402 Acute embolism and thrombosis of unspecified deep veins of left lower extremity (principal); Z79.01 Long term (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 of anticoagulants; Z51.81 Encounter for therapeutic drug level monitoring | CPT/HCPCS: 85610; 99211 ==

== ENCOUNTER → 2021-12-11 07:55 | Outpatient (BNVA) | payer OTHER, SELFPAY | PROVIDERS: PCP Internal Medicine; Visit Provider Internal Medicine | DX: I82.402 Acute embolism and thrombosis of unspecified deep veins of left lower extremity (principal); Z79.01 Long term (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 of anticoagulants; Z51.81 Encounter for therapeutic drug level monitoring | CPT/HCPCS: 85610; 99211 ==

== ENCOUNTER → 2021-12-16 15:48 | Outpatient (BNVA) | payer OTHER, SELFPAY | PROVIDERS: PCP Internal Medicine; Visit Provider Internal Medicine | DX: I82.402 Acute embolism and thrombosis of unspecified deep veins of left lower extremity (principal); Z79.01 Long term (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 of anticoagulants; Z51.81 Encounter for therapeutic drug level monitoring | CPT/HCPCS: 85610; 99211 ==

== ENCOUNTER → 2021-12-29 08:05 | Outpatient (BNVA) | payer OTHER, SELFPAY | PROVIDERS: PCP Internal Medicine; Visit Provider Internal Medicine | DX: I82.402 Acute embolism and thrombosis of unspecified deep veins of left lower extremity (principal); Z51.81 Encounter for therapeutic drug level monitoring; Z79.01 Long term (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 of anticoagulants | CPT/HCPCS: 85610; 99211 ==

== ENCOUNTER → 2022-01-05 08:03 | Outpatient (BNVA) | payer OTHER, SELFPAY | PROVIDERS: PCP Internal Medicine; Visit Provider Internal Medicine | DX: I82.402 Acute embolism and thrombosis of unspecified deep veins of left lower extremity (principal); Z51.81 Encounter for therapeutic drug level monitoring; Z79.01 Long term (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 of anticoagulants | CPT/HCPCS: 85610; 99211 ==

== ENCOUNTER → 2022-01-14 08:01 | Outpatient (BNVA) | payer OTHER, SELFPAY | PROVIDERS: PCP Internal Medicine; Visit Provider Internal Medicine | DX: I82.402 Acute embolism and thrombosis of unspecified deep veins of left lower extremity (principal); Z79.01 Long term (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 of anticoagulants; Z51.81 Encounter for therapeutic drug level monitoring | CPT/HCPCS: 85610; 99211 ==

== ENCOUNTER → 2022-01-27 08:00 | Outpatient (BNV) | payer OTHER, SELFPAY | PROVIDERS: PCP Internal Medicine; Visit Provider Internal Medicine | DX: I82.402 Acute embolism and thrombosis of unspecified deep veins of left lower extremity (principal); D69.6 Thrombocytopenia, unspecified; D72.819 Decreased white blood cell count, unspecified | CPT/HCPCS: 99213 ==

== ENCOUNTER → 2022-01-29 08:01 | Outpatient (BNVA) | payer OTHER, SELFPAY | PROVIDERS: PCP Internal Medicine; Visit Provider Internal Medicine | DX: I82.402 Acute embolism and thrombosis of unspecified deep veins of left lower extremity (principal); Z79.01 Long term (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 of anticoagulants; Z51.81 Encounter for therapeutic drug level monitoring | CPT/HCPCS: 85610; 99211 ==

== ENCOUNTER → 2022-02-19 08:00 | Outpatient (BNVA) | payer OTHER, SELFPAY | PROVIDERS: PCP Internal Medicine; Visit Provider Internal Medicine | DX: I82.402 Acute embolism and thrombosis of unspecified deep veins of left lower extremity (principal); Z79.01 Long term (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 of anticoagulants; Z51.81 Encounter for therapeutic drug level monitoring | CPT/HCPCS: 85610; 99211 ==

== ENCOUNTER → 2022-02-27 08:01 | Outpatient (BNVA) | payer OTHER, SELFPAY | PROVIDERS: PCP Internal Medicine; Visit Provider Internal Medicine | DX: I82.402 Acute embolism and thrombosis of unspecified deep veins of left lower extremity (principal); Z79.01 Long term (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 of anticoagulants; Z51.81 Encounter for therapeutic drug level monitoring | CPT/HCPCS: 85610; 99211 ==

== ENCOUNTER → 2022-03-13 08:02 | Outpatient (BNVA) | payer OTHER, SELFPAY | PROVIDERS: PCP Internal Medicine; Visit Provider Internal Medicine | DX: I82.402 Acute embolism and thrombosis of unspecified deep veins of left lower extremity (principal); Z79.01 Long term (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 of anticoagulants; Z51.81 Encounter for therapeutic drug level monitoring | CPT/HCPCS: 85610; 99211 ==

== ENCOUNTER → 2022-03-19 08:03 | Outpatient (BNVA) | payer OTHER, SELFPAY | PROVIDERS: PCP Internal Medicine; Visit Provider Internal Medicine | DX: I82.402 Acute embolism and thrombosis of unspecified deep veins of left lower extremity (principal); Z79.01 Long term (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 of anticoagulants; Z51.81 Encounter for therapeutic drug level monitoring | CPT/HCPCS: 85610; 99211 ==

== ENCOUNTER → 2022-03-27 08:13 | Outpatient (BNVA) | payer OTHER, SELFPAY | PROVIDERS: PCP Internal Medicine; Visit Provider Internal Medicine | DX: I82.402 Acute embolism and thrombosis of unspecified deep veins of left lower extremity (principal); Z79.01 Long term (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 of anticoagulants; Z51.81 Encounter for therapeutic drug level monitoring | CPT/HCPCS: 85610; 99211 ==

== ENCOUNTER → 2022-04-09 07:56 | Outpatient (BNVA) | payer OTHER, SELFPAY | PROVIDERS: PCP Internal Medicine; Visit Provider Internal Medicine | DX: I82.402 Acute embolism and thrombosis of unspecified deep veins of left lower extremity (principal); Z79.01 Long term (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 of anticoagulants; Z51.81 Encounter for therapeutic drug level monitoring | CPT/HCPCS: 85610; 99211 ==

== ENCOUNTER 2022-04-22 07:57 | Outpatient (REF) | payer OTHER, SELFPAY ==
--- NOTE | ~2022-04-22 | MM_ITS ---
EXAMINATION: BONE DENSITOMETRY CLINICAL INDICATION: Age-related osteoporosis without current pathological fracture. COMPARISON: Baseline BD dated 06/06/2007. TECHNIQUE: Using a New [employer] DXA System (software version: 13.1) manufactured by [employer], dual-energy x-ray absorptiometry was performed of the lumbar spine and left hip. The images are of good technical quality. Summary results are attached. FINDINGS: AP SPINE L1-L4: Current: BMD 1.136 g/cm2, Z-score -0.5, T-score -0.7, normal, 3.4% decrease from baseline (<5% change is not significant). Baseline: BMD 1.176 g/cm2. LEFT FEMUR, NECK: Current: BMD 1.183 g/cm2, Z-score 1.6, T-score 0.9, normal. Baseline: BMD 1.271 g/cm2. LEFT FEMUR, TOTAL: Current: BMD 1.307 g/cm2, Z-score 1.8, T-score 1.4, normal, 3.4% decrease from baseline (<5% change is not significant). Baseline: BMD 1.353 g/cm2. IDENTIFIED RISK FACTORS: Glucocorticoids (chronic). HISTORY OF FRACTURE: None listed. MEDICATIONS: None listed. MM/XR DEXA axial skeleton IMPRESSION: 1. DIAGNOSIS: Normal bone density based on the lowest T-score value of -0.7 in the lumbar spine applying World Health Organization criteria. 2. 10-YEAR FRACTURE RISK PREDICTION, FRAX: According to the guidelines, FRAX calculation should only be performed on patients in the osteopenia bone density category. Therefore, FRAX was not performed on this patient. 3. Treatment Recommendations: NOF guidelines recommend consideration for treatment in postmenopausal women and men age 50 and older presenting with the following: -A hip or vertebral (clinical or morphometric) fracture. -T-score less than or equal to -2.5 at the femoral neck or spine after appropriate evaluation to exclude secondary causes. -Low bone mass at the hip or spine and a 10-year fracture probability by FRAX of greater than or equal to 3% for hip fracture or greater than or equal to 20% for major osteoporotic fracture based on the [place] adapted WHO algorithm. 4. Other Recommendations: All treatment decisions require clinical judgment and consideration of individual patient factors, including patient preferences, comorbidities, previous drug use, risk factors not captured in the FRAX model (e.g. frailty, falls, vitamin D deficiency, increased bone turnover, interval significant decline in bone density) and possible under or overestimation of fracture risk by FRAX. FUTURE SCAN RECOMMENDATION: People with diagnosed cases of osteoporosis or at high risk for fracture should have regular bone mineral density tests. For patients eligible for Medicare, routine testing is allowed once every 2 years. The testing frequency can be increased to one year for patients who have rapidly progressing disease, those who are receiving or discontinuing medical therapy to restore bone mass, or have additional risk factors.
== END 2022-04-22 07:58 | disposition home or self-care (01) ==
LOC: HO.MAMMO 07:57
PROVIDERS: PCP Internal Medicine; Visit Provider Internal Medicine
DX: Z13.820 Encounter for screening for osteoporosis (principal); M81.0 Age-related osteoporosis without current pathological fracture; Z79.52 Long term (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 of systemic steroids
CPT/HCPCS: 77080

== ENCOUNTER → 2022-04-30 08:01 | Outpatient (BNVA) | payer OTHER, SELFPAY | PROVIDERS: PCP Internal Medicine; Visit Provider Internal Medicine | DX: Z95.2 Presence of prosthetic heart valve (principal); Z79.01 Long term (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 of anticoagulants; Z51.81 Encounter for therapeutic drug level monitoring | CPT/HCPCS: 85610; 99211 ==

== ENCOUNTER 2022-05-21 06:07 | Outpatient (REF) | payer OTHER, SELFPAY ==
--- NOTE | ~2022-05-21 | XR_ITS ---
EXAMINATION: XR CHEST CLINICAL INFORMATION: Cough COMPARISON: Chest x-ray 11/18/2020 TECHNIQUE: 2 views of the chest were obtained. FINDINGS: There is marked elevation of right hemidiaphragm with underlying right basilar atelectasis. Rest lungs are expanded and clear. There are surgical analilia in the right lung apex. The heart size and pulmonary vascularity is normal. No gross bony abnormality seen. XR/XR chest 2V IMPRESSION: Marked elevation of right hemidiaphragm with underlying right basilar atelectasis. There are surgical analilia in the right lung apex. No major change from 11/18/2020
[2022-05-21 06:12] LABS: MANUAL DIFF FLAG NO
[2022-05-21 07:39] LABS: Basophils Percent Auto 0.2 % (0-2); Hematocrit 47.9 % (42.0-52.0); Hemoglobin 15.5 g/dl (14.0-18.0); Imm Gran Abs Auto 0.01 X10*3/uL (0.00-0.03); Imm Gran Pct Auto 0.2 % (0.0-0.4); Lymphocytes Absolute Auto 0.9 X10*3/uL (1.2-4.9); Lymphocytes Percent Auto 17.6 % (20-40); Mean Corpuscular HGB Conc 32.4 g/dl (31.0-36.0); Mean Corpuscular Volume 86.5 fL (80.0-98.0); Mean Platelet Volume 10.7 fL (9.4-12.4); Monocytes Absolute Auto 0.4 X10*3/uL (0.1-1.2); Monocytes Percent Auto 8.1 % (2-11); Neutrophils Absolute Auto 3.6 x10*3/uL (2.0-8.3); Neutrophils Percent Auto 73.9 % (45-73); Platelet Count 175 X10*3/uL (160-400); Red Blood Count 5.54 X10*6/uL (4.60-5.80); Red Cell Distribution Width 14.2 % (11.0-16.0); White Blood Count 4.8 X10*3/uL (4.8-10.8)
[2022-05-21 08:07] LABS: Estimated Average Glucose 117 mg/dL; Hemoglobin A1c % 5.7 %
[2022-05-21 08:19] LABS: Alanine Aminotransferase 35 U/L (0-40); Albumin Level 4.2 g/dL (3.5-5.0); Alkaline Phosphatase 110 U/L (39-117); Anion Gap 14 (12-20); Aspartate Amino Transferase 24 U/L (5-37); Bilirubin Total 1.9 mg/dL (0.0-1.0); Blood Urea Nitrogen 13 mg/dL (9-16); C Reactive Protein 0.46 mg/dL (< or = 0.50); Calcium 9.4 mg/dL (8.4-10.2); Carbon Dioxide 25 mmol/L (22-29); Chloride 106 mmol/L (96-108); Cholesterol 204 mg/dL; Estimated Glomerular Filt Rate > 60; Glucose Random 119 mg/dL (60-115); HDL Cholesterol 53 mg/dL; LDL Cholesterol Calculated 130 mg/dl; Potassium 4.9 mmol/L (3.3-5.1); Sodium 140 mmol/L (135-145); Total Protein 7.7 g/dL (6.5-8.0); Triglycerides 106 mg/dL
[2022-05-21 08:26] LABS: Erythrocyte Sedimentation Rate 7 MM/HR (0-15)
[2022-05-21 08:36] LABS: Free T4 (Free Thyroxine) 0.89 ng/dL (0.71-1.85); Prostate Specific Antigen Scr 2.27 ng/mL (<0.05-4.0); Thyroid Stimulating Hormone 0.26 uIU/mL (0.32-4.0); Vitamin D 25-OH Total 4.9 ng/mL (>30)
[2022-05-21 08:52] LABS: Folate 7.9 ng/mL (> or = 4.0); Vitamin B12 648 pg/mL (200-900)
== END 2022-05-21 06:08 | disposition home or self-care (01) ==
LOC: HO.LAB 06:07
PROVIDERS: PCP Internal Medicine; Visit Provider Internal Medicine
DX: Z12.5 Encounter for screening for malignant neoplasm of prostate (principal); I82.402 Acute embolism and thrombosis of unspecified deep veins of left lower extremity; Z51.81 Encounter for therapeutic drug level monitoring; Z79.01 Long term (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 of anticoagulants; R73.02 Impaired glucose tolerance (oral); E78.00 Pure hypercholesterolemia, unspecified; N40.1 Benign prostatic hyperplasia with lower urinary tract symptoms; R35.0 Frequency of micturition; D86.9 Sarcoidosis, unspecified; R05.9 Cough, unspecified; Z79.52 Long term (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 of systemic steroids
CPT/HCPCS: 36415; 71046; 80053; 80061; 82306; 82607; 82746; 83036; 84153; 84439; 84443; 85025; 85610; 85652; 86140; 99211

== ENCOUNTER → 2022-06-11 07:59 | Outpatient (BNVA) | payer OTHER, SELFPAY | PROVIDERS: PCP Internal Medicine; Visit Provider Internal Medicine | DX: I82.402 Acute embolism and thrombosis of unspecified deep veins of left lower extremity (principal); Z79.01 Long term (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 of anticoagulants; Z51.81 Encounter for therapeutic drug level monitoring | CPT/HCPCS: 85610; 99211 ==

== ENCOUNTER → 2022-06-18 14:48 | Outpatient (BNVA) | payer OTHER, SELFPAY | PROVIDERS: PCP Internal Medicine; Visit Provider Hospitalist | DX: J18.9 Pneumonia, unspecified organism (principal); D86.9 Sarcoidosis, unspecified; R91.8 Other nonspecific abnormal finding of lung field; Z79.52 Long term (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 of systemic steroids | CPT/HCPCS: 99202 ==

== ENCOUNTER 2022-06-25 06:06 | Outpatient (REF) | payer OTHER, SELFPAY ==
[2022-06-25 06:16] LABS: MANUAL DIFF FLAG NO
[2022-06-25 07:58] LABS: Basophils Percent Auto 0.3 % (0-2); Eosinophils Percent Auto 0.1 % (0-4); Hematocrit 47.8 % (42.0-52.0); Hemoglobin 15.7 g/dl (14.0-18.0); Imm Gran Abs Auto 0.03 X10*3/uL (0.00-0.03); Imm Gran Pct Auto 0.4 % (0.0-0.4); Lymphocytes Absolute Auto 0.8 X10*3/uL (1.2-4.9); Lymphocytes Percent Auto 11.1 % (20-40); Mean Corpuscular HGB Conc 32.8 g/dl (31.0-36.0); Mean Corpuscular Hemoglobin 28.4 pg (27.0-33.0); Mean Corpuscular Volume 86.6 fL (80.0-98.0); Mean Platelet Volume 11.7 fL (9.4-12.4); Monocytes Absolute Auto 0.3 X10*3/uL (0.1-1.2); Neutrophils Absolute Auto 6.3 x10*3/uL (2.0-8.3); Neutrophils Percent Auto 84.1 % (45-73); Platelet Count 185 X10*3/uL (160-400); Red Blood Count 5.52 X10*6/uL (4.60-5.80); Red Cell Distribution Width 14.3 % (11.0-16.0); White Blood Count 7.5 X10*3/uL (4.8-10.8)
[2022-06-25 08:27] LABS: Alanine Aminotransferase 38 U/L (0-40); Albumin Level 3.9 g/dL (3.5-5.0); Alkaline Phosphatase 108 U/L (39-117); Anion Gap 16 (12-20); Aspartate Amino Transferase 23 U/L (5-37); Bilirubin Direct 0.4 mg/dL (0.0-0.5); Bilirubin Total 1.7 mg/dL (0.0-1.0); Blood Urea Nitrogen 17 mg/dL (9-16); Calcium 9.1 mg/dL (8.4-10.2); Carbon Dioxide 25 mmol/L (22-29); Chloride 106 mmol/L (96-108); Estimated Glomerular Filt Rate > 60; Glucose Random 131 mg/dL (60-115); Potassium 4.5 mmol/L (3.3-5.1); Sodium 142 mmol/L (135-145)
[2022-06-25 08:41] LABS: Erythrocyte Sedimentation Rate 5 MM/HR (0-15)
[2022-06-25 08:46] LABS: Free T4 (Free Thyroxine) 0.85 ng/dL (0.71-1.85); Thyroid Stimulating Hormone 0.31 uIU/mL (0.32-4.0)
[2022-06-30 06:53] LABS: Angiotensin Converting Enzyme 62.3 U/L (9-67)
== END 2022-06-25 06:07 | disposition home or self-care (01) ==
LOC: HO.LAB 06:06
PROVIDERS: PCP Internal Medicine; Visit Provider Hospitalist
DX: R79.89 Other specified abnormal findings of blood chemistry (principal); D86.9 Sarcoidosis, unspecified
CPT/HCPCS: 36415; 80048; 80076; 82164; 84439; 84443; 85025; 85652

== ENCOUNTER 2022-06-26 15:12 | Outpatient (REF) | payer OTHER, SELFPAY ==
--- NOTE | 2022-06-26 17:45 | PFT_ITS ---
INDICATION: Sarcoidosis. SPIROMETRY: FEV1 to FVC of 89% with an FEV1 of 2.06 L, which is 68% predicted and FVC of 2.32 L, which is 39% predicted. No significant response to bronchodilators noted. Maximum voluntary ventilation is 82% of predicted. LUNG VOLUMES: Total lung capacity 58% predicted with an expiratory reserve volume of 65% of predicted. DIFFUSION CAPACITY: DLCO of 46% of predicted. COMPARISONS: PFTs from 2016. INTERPRETATION: No obstructive ventilatory defect no significant response to bronchodilators noted. There is normal maximum voluntary ventilation. The patient does have his trach to ventilatory defect consistent with moderate restrictive lung disease consistent with his history of sarcoidosis and parenchymal lung disease. In addition to that, the patient does have a moderate to severe diffusion impairment secondary to the parenchymal disease. When compared to 2016, there is a significant decrease in the FVC, a trend decrease in the FEV1, a significant decrease in the total lung capacity, and a trend decrease in the diffusion capacity. Clinical correlation warranted. MD JESSICA Ho/MODL / [id number]
== END 2022-06-26 15:13 | disposition home or self-care (01) ==
LOC: HO.RESP 15:12
PROVIDERS: PCP Internal Medicine; Visit Provider Hospitalist
DX: R91.8 Other nonspecific abnormal finding of lung field (principal); D86.9 Sarcoidosis, unspecified; J18.9 Pneumonia, unspecified organism; I82.402 Acute embolism and thrombosis of unspecified deep veins of left lower extremity; Z51.81 Encounter for therapeutic drug level monitoring; Z79.01 Long term (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 of anticoagulants
CPT/HCPCS: 94060; 94727; 94729

== ENCOUNTER 2022-07-07 14:47 | Outpatient (REF) | payer OTHER, SELFPAY ==
--- NOTE | ~2022-07-07 | CT_ITS ---
EXAMINATION: CT CHEST WITHOUT CONTRAST CLINICAL INFORMATION: Pneumonia COMPARISON: Chest radiograph from 05/21/2022 TECHNIQUE: Multidetector volumetric CT imaging of the chest was done. Axial MIP volume rendering provided. Sagittal and coronal reformatted images were obtained. This CT examination was performed using dose optimization techniques as appropriate, variously including the following: *Automated exposure control *Adjustment of mA and/or kV according to patient size (this includes techniques or standardized protocols for targeted exams where dose is matched to indication/reason for exam; i.e. extremities or head) *Use of iterative reconstruction technique DLP: 156 mGy-cm FINDINGS: LUNGS/PLEURA: Bilateral low lung volumes. Biapical pleural parenchymal scarring. Moderate similar changes. Peripheral reticular nodular opacities. Bronchiectatic changes greatest in the right middle and right lower lobes. Regions of subpleural cystic changes and reticulations suggesting an element of fibrotic changes. Elevation of the right hemidiaphragm. Nonspecific confluent groundglass opacities in the right middle lobe, right lower lobe, and lingula likely representing an element of atelectasis/scarring though underlying infectious/inflammatory etiology is not excluded. Correlation with symptomatology. No large or suspicious pulmonary nodules or masses are noted. Central airways are patent. No pneumothorax. MEDIASTINUM: Heart is not enlarged. No pericardial effusion. Coronary calcifications are noted. Aorta is nonaneurysmal and demonstrates atherosclerotic calcifications. Main pulmonary artery is enlarged suggesting pulmonary arterial hypertension. 4 mildly prominent though nonenlarged peritracheal, precarinal, and periaortic lymph nodes the largest measuring up to 1.0 cm in short axis. Visualized portions of the thyroid are unremarkable. Surgical material noted in the right infraclavicular region medially. Elevation the right hemidiaphragm. AXILLA: No lymphadenopathy. 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 Decreased hepatic attenuation suggesting hepatic steatosis. OSSEOUS STRUCTURES: Multilevel degenerative changes of the thoracolumbar spine. CT/CT chest wo IV con IMPRESSION: 1. Bilateral low lung volumes. Peripheral reticular nodular opacities. Bronchiectatic changes greatest in the right middle and right lower lobes. Regions of subpleural cystic changes and reticulations suggesting elements of fibrotic changes. 2. Nonspecific confluent groundglass opacities in the right middle lobe, right lower lobe, and lingula likely representing an element of atelectasis/scarring though underlying infectious/inflammatory etiology is not excluded. Correlation with symptomatology. 3. Elevation of the right hemidiaphragm, nonspecific. Bilateral low lung volumes. 4. Main pulmonary artery is enlarged suggesting pulmonary arterial hypertension. 5. 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 6. Decreased hepatic attenuation suggesting hepatic steatosis.
== END 2022-07-07 14:48 | disposition home or self-care (01) ==
LOC: HO.CT 14:47
PROVIDERS: PCP Internal Medicine; Visit Provider Hospitalist
DX: R91.8 Other nonspecific abnormal finding of lung field (principal); D86.9 Sarcoidosis, unspecified; J18.9 Pneumonia, unspecified organism
CPT/HCPCS: 71250

== ENCOUNTER → 2022-07-09 08:00 | Outpatient (BNVA) | payer OTHER, SELFPAY | PROVIDERS: PCP Internal Medicine; Visit Provider Internal Medicine | DX: I82.402 Acute embolism and thrombosis of unspecified deep veins of left lower extremity (principal); Z79.01 Long term (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 of anticoagulants; Z51.81 Encounter for therapeutic drug level monitoring | CPT/HCPCS: 85610; 99211 ==

== ENCOUNTER → 2022-07-13 11:35 | Outpatient (BNVA) | payer OTHER, SELFPAY | PROVIDERS: PCP Internal Medicine; Visit Provider Internal Medicine | DX: Z79.01 Long term (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 of anticoagulants (principal) ==

== ENCOUNTER → 2022-07-20 15:21 | Outpatient (BNVA) | payer OTHER, SELFPAY | PROVIDERS: PCP Internal Medicine; Visit Provider Internal Medicine | DX: I82.402 Acute embolism and thrombosis of unspecified deep veins of left lower extremity (principal); Z79.01 Long term (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 of anticoagulants; Z51.81 Encounter for therapeutic drug level monitoring | CPT/HCPCS: 85610; 99211 ==

== ENCOUNTER → 2022-07-27 15:31 | Outpatient (BNVA) | payer OTHER, SELFPAY | PROVIDERS: PCP Internal Medicine; Visit Provider Internal Medicine | DX: I82.402 Acute embolism and thrombosis of unspecified deep veins of left lower extremity (principal); Z79.01 Long term (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 of anticoagulants; Z51.81 Encounter for therapeutic drug level monitoring | CPT/HCPCS: 85610; 99211 ==

== ENCOUNTER → 2022-08-03 15:16 | Outpatient (BNVA) | payer OTHER, SELFPAY | PROVIDERS: PCP Internal Medicine; Visit Provider Hospitalist | DX: D86.0 Sarcoidosis of lung (principal); J84.9 Interstitial pulmonary disease, unspecified; R05.9 Cough, unspecified; R91.8 Other nonspecific abnormal finding of lung field; Q79.1 Other congenital malformations of diaphragm; Z79.52 Long term (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 of systemic steroids | CPT/HCPCS: 99212 ==

== ENCOUNTER → 2022-08-05 15:04 | Outpatient (BNVA) | payer OTHER, SELFPAY | PROVIDERS: PCP Internal Medicine; Visit Provider Surgery | DX: K40.90 Unilateral inguinal hernia, without obstruction or gangrene, not specified as recurrent (principal) | CPT/HCPCS: 99212 ==

== ENCOUNTER → 2022-08-06 07:58 | Outpatient (BNVA) | payer OTHER, SELFPAY | PROVIDERS: PCP Internal Medicine; Visit Provider Internal Medicine | DX: I82.402 Acute embolism and thrombosis of unspecified deep veins of left lower extremity (principal); Z79.01 Long term (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 of anticoagulants; Z51.81 Encounter for therapeutic drug level monitoring | CPT/HCPCS: 85610; 99211 ==

== ENCOUNTER → 2022-08-18 08:01 | Outpatient (BNVA) | payer OTHER, SELFPAY | PROVIDERS: PCP Internal Medicine; Visit Provider Internal Medicine | DX: I82.401 Acute embolism and thrombosis of unspecified deep veins of right lower extremity (principal); Z51.81 Encounter for therapeutic drug level monitoring; Z79.01 Long term (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 of anticoagulants | CPT/HCPCS: 85610; 99212 ==

== ENCOUNTER 2022-08-25 07:33 | Outpatient (REF) | payer OTHER, SELFPAY ==
[2022-08-25 07:59] LABS: MANUAL DIFF FLAG NO
[2022-08-25 08:17] LABS: Basophils Percent Auto 0.6 % (0-2); Eosinophils Absolute Auto 0.2 X10*3/uL (0.0-0.4); Eosinophils Percent Auto 3.3 % (0-4); Hematocrit 48.6 % (42.0-52.0); Hemoglobin 15.5 g/dl (14.0-18.0); Imm Gran Abs Auto 0.01 X10*3/uL (0.00-0.03); Imm Gran Pct Auto 0.2 % (0.0-0.4); Lymphocytes Absolute Auto 0.7 X10*3/uL (1.2-4.9); Lymphocytes Percent Auto 12.8 % (20-40); Mean Corpuscular HGB Conc 31.9 g/dl (31.0-36.0); Mean Corpuscular Hemoglobin 27.8 pg (27.0-33.0); Mean Corpuscular Volume 87.3 fL (80.0-98.0); Monocytes Absolute Auto 0.7 X10*3/uL (0.1-1.2); Monocytes Percent Auto 12.8 % (2-11); Neutrophils Absolute Auto 3.6 x10*3/uL (2.0-8.3); Neutrophils Percent Auto 70.3 % (45-73); Platelet Count 149 X10*3/uL (160-400); Red Blood Count 5.57 X10*6/uL (4.60-5.80); Red Cell Distribution Width 13.2 % (11.0-16.0); White Blood Count 5.1 X10*3/uL (4.8-10.8)
[2022-08-25 08:48] LABS: Alanine Aminotransferase 70 U/L (0-40); Albumin Level 4.1 g/dL (3.5-5.0); Alkaline Phosphatase 87 U/L (39-117); Anion Gap 13 (12-20); Aspartate Amino Transferase 57 U/L (5-37); Bilirubin Total 2.1 mg/dL (0.0-1.0); Blood Urea Nitrogen 11 mg/dL (9-16); Calcium 9.2 mg/dL (8.4-10.2); Carbon Dioxide 29 mmol/L (22-29); Chloride 105 mmol/L (96-108); Estimated Glomerular Filt Rate > 60; Glucose Random 101 mg/dL (60-115); Sodium 142 mmol/L (135-145); Total Protein 7.1 g/dL (6.5-8.0)
== END 2022-08-25 07:34 | disposition home or self-care (01) ==
LOC: HO.LAB 07:33
PROVIDERS: PCP Internal Medicine; Visit Provider Internal Medicine
DX: R10.84 Generalized abdominal pain (principal)
CPT/HCPCS: 36415; 80053; 85025

== ENCOUNTER 2022-08-25 07:55 | Day surgery (SDC) | payer OTHER, SELFPAY ==
--- NOTE | 2022-08-17 | ECG_ITS ---
Test Reason : preop Blood Pressure : / mmHG Vent. Rate : 075 BPM Atrial Rate : 075 BPM P-R Int : 120 ms QRS Dur : 084 ms QT Int : 368 ms P-R-T Axes : 053 051 040 degrees QTc Int : 410 ms Normal sinus rhythm Normal ECG When compared with ECG of 15-MAY-2009 11:25, T wave inversion no longer evident in Inferior leads Referred By: Mya Landrum Electronically Signed By:EMIR PANDEY MD
[2022-08-17 14:35] VITALS: BP 134/71; PULSE 77; RESP 24; O2SAT 95; BMI 29.3
--- NOTE | 2022-08-17 14:47 | HO.ANESPROP2 ---
Documented by User: Mya Landrum NP 08/17/22 15:11 HPI - Anesthesia Eval Consult details Narrative: 56yo M for Right Hernia Repair Inguinal with mesh 08/25/22 Pulmo cleared. Follows for sarcoid. Daily prednisone 7.5mg, Mycophenolate Coumadin for DVT hx. (Protein S). 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) Fatty liver (Acute) Onychomycosis (Acute) Right inguinal hernia (Acute) Sarcoidosis (Acute) Pulmonary nodules (Acute) Protein S deficiency (Acute) Hypercholesterolemia (Acute) BPH (benign prostatic hyperplasia) (Acute) Past Medical History Medical History (Updated 08/21/22 @ 11:44 by Jaz Myers MD) Bleeding hemorrhoids BPH (benign prostatic hyperplasia) DVT (deep venous thrombosis) Glaucoma Hypercholesterolemia Hyperkalemia Leg pain, right LFT elevation Obesity (BMI 30.0-34.9) Protein S deficiency Pulmonary nodules Right inguinal hernia Sarcoidosis Thrombocytopenia Vitamin D deficiency Family History Family History Mother No problems noted. Father Medical history unknown Daughter In good health Sister In good health Brother Lung cancer Family history of problems with anesthesia: No Surgical History Surgical History History of appendectomy History of sinus surgery History of umbilical hernia repair Hx of colonoscopy Hx of lymph node biopsy History of Problems with Anesthesia: No Social History Social History Household Members: Significant Other Housing: House Are you a primary daycare director to a significant other at home: No Do you presently have visiting nurse or other home services: No Alcohol intake: current Alcohol intake frequency: holidays/special occasions only Patient Tobacco Use Status: Never used Tobacco e-Cigarette/Vaping Use: Never Used Second Hand Smoke Exposure: No Use of substances other than those prescribed or required for medical reasons: No Have you been hit, kicked, punched, or otherwise hurt by someone within the past year? If so, by whom?: No Are you DNR?: No Advance Directives: No (girlfriend is primary contact) Advance Directives Information Provided: Yes (brochure given) Advance Directives on File: No Recently lost weight without trying: No Eating poorly because of decreased appetite: No Nutrition Risks: No Nutritional Risk Poor oral hygiene: No (upper partial denture) service: No Current occupational status: employed Cognitive needs: No Hearing needs: No Vision needs: Yes Narrative Narrative: No recent illness No CP/SOB. Stable with sarcoid Meds Allergies Allergy/AdvReac Type Severity Reaction Status Date / Time No Known Allergies Allergy Verified 08/21/22 11:21 [No Known Allergies*] Home Medications Medication Instructions Recorded Confirmed Last Taken Type prednisolone acetate 1 % eye 1 drp ophthalmic (eye) BEDTIME 05/13/21 08/25/22 08/24/22 History drops,suspension (Pred Forte) prednisone 5 mg tablet 7.5 mg PO BEDTIME 08/17/22 08/25/22 08/24/22 History 0700 warfarin 4 mg tablet (Jantoven) 4 mg PO BEDTIME 08/17/22 08/25/22 08/24/22 History Exam Exam Date and Time: August 17, 2022 1447 Height,Weight and Vital Signs: Height 5 ft 4 in Weight 77.564 kg Last Vital Signs Pulse 77 08/17/22 14:35 Resp 24 H 08/17/22 14:35 BP 134/71 08/17/22 14:35 Pulse Ox 95 08/17/22 14:35 O2 Del Method Room Air 08/17/22 14:35 Airway Mallampati Class: I TM Dist: >3cm Neck ROM: Full Partial: Upper Heart: RRR Lungs: CTAB Assessment and Plan Assessment Anesthesia Assessment: Anesthesia Plan Discussed and PAT Visit Final Anesthetic Review Family History of Problems with Anesthesia: No History of Problems with Anesthesia: No Documented by User: Abdoul Masters MD 08/25/22 10:45 [facility] Past Medical History Medical History (Updated 08/21/22 @ 11:44 by Jaz Myers MD) Bleeding hemorrhoids BPH (benign prostatic hyperplasia) DVT (deep venous thrombosis) Glaucoma Hypercholesterolemia Hyperkalemia Leg pain, right LFT elevation Obesity (BMI 30.0-34.9) Protein S deficiency Pulmonary nodules Right inguinal hernia Sarcoidosis Thrombocytopenia Vitamin D deficiency Family History Family History Mother No problems noted. Father Medical history unknown Daughter In good health Sister In good health Brother Lung cancer Surgical History Surgical History History of appendectomy History of sinus surgery History of umbilical hernia repair Hx of colonoscopy Hx of lymph node biopsy Social History Social History Household Members: Significant Other Housing: House Are you a primary daycare director to a significant other at home: No Do you presently have visiting nurse or other home services: No Alcohol intake: current Alcohol intake frequency: holidays/special occasions only Patient Tobacco Use Status: Never used Tobacco e-Cigarette/Vaping Use: Never Used Second Hand Smoke Exposure: No Use of substances other than those prescribed or required for medical reasons: No Have you been hit, kicked, punched, or otherwise hurt by someone within the past year? If so, by whom?: No Are you DNR?: No Advance Directives: No (girlfriend is primary contact) Advance Directives Information Provided: Yes (brochure given) Advance Directives on File: No Recently lost weight without trying: No Eating poorly because of decreased appetite: No Nutrition Risks: No Nutritional Risk Poor oral hygiene: No (upper partial denture) service: No Current occupational status: employed Cognitive needs: No Hearing needs: No Vision needs: Yes Meds Allergies Allergy/AdvReac Type Severity Reaction Status Date / Time No Known Allergies Allergy Verified 08/21/22 11:21 [No Known Allergies*] Home Medications Medication Instructions Recorded Confirmed Last Taken Type prednisolone acetate 1 % eye 1 drp ophthalmic (eye) BEDTIME 01/04/22 04/18/23 04/17/23 History drops,suspension (Pred Forte) prednisone 5 mg tablet 7.5 mg PO BEDTIME 08/17/22 08/25/22 08/24/22 History 0700 warfarin 4 mg tablet (Jantoven) 4 mg PO BEDTIME 08/17/22 08/25/22 08/24/22 History Assessment and Plan Assessment Anesthesia Assessment: Chart Reviewed Final Anesthetic Review NPO: Yes ASA Class: III Final Preanesthetic Review: No Changes in Pt Med Stat, Meds/Allgs Chart Reviewed, Consent Obtained/Reviewed and Anes Risks/Benef Reviewed Patient Risk: Intermediate Procedure Risk: Low Anesthetic Plan Anesthetic Plan: GA and Agree w/ Assess. and Plan Disposition: Standard PACU
[2022-08-25] VITALS (8 sets, daily range): BP systolic 125–136; BP diastolic 68–93; PULSE 55–75; RESP 14–19; TEMP 36.1–36.8; O2SAT 92–98; BMI 29.2
[2022-08-25 08:23] LABS: Prothrombin Time 11.4 SEC (10.0-13.1)
[2022-08-25] MEDS: Lactated Ringers 1,000 ML 100 ML IVCONT (08:34)
--- NOTE | 2022-08-25 09:43 | MHC.SHP ---
Pre-Procedural Eval Section A Date of Service: 08/25/22 The patient is an INPATIENT: No Changes since office visit: No Cold of Flu in the past 2 weeks, No New Medical Problems, No Changes in Medication and No Patient answered all questions The History & Physical has been completed within 30 days and I have reviewed it.: Yes Section B Chief Complaint: Unilateral inguinal hernia, without obstruction or Allergies: Allergies Allergy/AdvReac Type Severity Reaction Status Date / Time No Known Allergies Allergy Verified 08/21/22 11:21 [No Known Allergies*] Plan I have reviewed the history and physical and performed a pertinent physical examination on my patient. No changes have occurred unless specified. Time Spent With Patient Time: Total time managing care of this patient today ____ minutes.
--- NOTE | 2022-08-25 10:54 | P.OP_ITS ---
Operative Note Operative Note Date of Service: 08/25/22 Narrative: Preop diagnosis: Right inguinal hernia Postop diagnosis: Right inguinal hernia, indirect Procedure: Repair of right inguinal hernia with mesh Surgeon: Saurabh Serrato MD assistant professor of biochemistry: NAVYA Sandoval The patient is 56-year-old male with a reducible mass on the right groin consistent with a right inguinal hernia. He understood the technique of repair with mesh. He was aware of the risks, benefits, and alternatives. He was on Coumadin for history of DVT, but he had stopped taking this for about 4-5 days and has been on Lovenox. He was brought to the operating room. He was placed supine on the table under general anesthesia via laryngeal mask airway. The right groin was prepped and draped in the usual sterile fashion. A surgical time-out was done. The patient received cefazolin 2 g IV preoperatively. I infiltrated the planned line of incision which was along an imaginary line from the anterior superior iliac spine to the pubic ramus. I made the incision short incision using blade 15. This carried down through the full-thickness of the skin subcutaneous fat with electrocautery until the external oblique aponeurosis was visualized. I bluntly dissected the external oblique apone urosis with a gauze to visualize the external ring. Once the external ring was defined, I proceeded to make a short incision on the aponeurosis overlying the canal. This extends that inferomedially to connect with the external ring. Hemostats were placed on the divided edges of the aponeurosis. I bluntly dissected the underside of the aponeurosis to create space for the mesh. The large hernia was noted. I bluntly dissected these hernia along with the spermatic cord with my index finger until was able to pass a Kirstie drain around this. The Kirstie drains were unusual retraction. I defined the vas deferens and the accompanying vessels and these were protected during the rest of the dissection. I proceeded to then gently separate the large sac with its contents off of the spermatic cord blunt dissection until was able to reduce this to the internal ring. This was therefore an indirect hernia. I reinforced the internal ring with a medium-sized plug. The plug was secured with Prolene 2 sutures to the shelving edge of the inguinal meant laterally and the internal oblique superiorly medially using the inner leaves of the plug itself I reinforced the floor of the canal with the keyhole mesh. the tails of the mesh were passed around the cord at the level of the internal ring and were secured together with Prolene 2 sutures. I flattened the mesh on the floor. I secured the mesh with Prolene 2 sutures to the shelving edge of the inguinal ligament laterally, the internal oblique superiorly and medially as well as the pubic ramus inferomedially. I irrigated. Hemostasis was observed. Then closed the external oblique aponeurosis with a running Polysorb 2-0 stitch to re-create the external ring. Subcutaneous layer was reapposed with Dexon 3-0 interrupted sutures. Skin closure was achieved with subcuticular running Polysorb 4-0 sutures. The area was infiltrated with Marcaine 0.5% for postop analgesia. Steri-Strips and dressings were applied and the procedure was completed. The patient tolerated procedure well. There were no immediate complications. Initial and final counts of sponges and instruments were correct. Estimated blood loss was less than 20 cc. The patient was extubated without difficulty and transferred to the recovery room with stable vital signs.
--- NOTE | 2022-08-25 13:22 | PC.NURSE ---
late entry for 0845 Pt reports he shaved himself at home, educated regarding pt should not shave preoperatively and razor rash noted, Dr. Serrato examined pt preoperatively. antibiotics ordered preoperatively.
== END 2022-08-25 13:36 | disposition home or self-care (01) ==
PROVIDERS: Nurse Practitioner; PCP Internal Medicine; Visit Provider Surgery
PROC: (CPT 49505; principal; 2022-08-25 10:20)
DX: K40.90 Unilateral inguinal hernia, without obstruction or gangrene, not specified as recurrent (principal); D68.59 Other primary thrombophilia; D69.6 Thrombocytopenia, unspecified; D86.9 Sarcoidosis, unspecified; R91.8 Other nonspecific abnormal finding of lung field; N40.0 Benign prostatic hyperplasia without lower urinary tract symptoms; E78.00 Pure hypercholesterolemia, unspecified; E87.5 Hyperkalemia; E55.9 Vitamin D deficiency, unspecified; Z86.718 Personal history of other venous thrombosis and embolism; Z79.01 Long term (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 of anticoagulants; Z79.52 Long term (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 of systemic steroids; Z79.899 Other long term (current) drug therapy
CPT/HCPCS: 49505; 36415; 85610; 93005; C1781; J0690; J3010

== ENCOUNTER → 2022-08-28 08:24 | Outpatient (BNVA) | payer OTHER, SELFPAY | PROVIDERS: PCP Internal Medicine; Visit Provider Internal Medicine | DX: I82.402 Acute embolism and thrombosis of unspecified deep veins of left lower extremity (principal); Z79.01 Long term (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 of anticoagulants; Z51.81 Encounter for therapeutic drug level monitoring | CPT/HCPCS: 85610; 99211 ==

== ENCOUNTER → 2022-08-31 08:16 | Outpatient (BNVA) | payer OTHER, SELFPAY | PROVIDERS: PCP Internal Medicine; Visit Provider Internal Medicine | DX: I82.402 Acute embolism and thrombosis of unspecified deep veins of left lower extremity (principal); Z79.01 Long term (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 of anticoagulants; Z51.81 Encounter for therapeutic drug level monitoring | CPT/HCPCS: 85610; 99211 ==

== ENCOUNTER → 2022-09-02 15:28 | Outpatient (BNVA) | payer OTHER, SELFPAY | PROVIDERS: PCP Internal Medicine; Visit Provider Internal Medicine | DX: I82.402 Acute embolism and thrombosis of unspecified deep veins of left lower extremity (principal); Z79.01 Long term (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 of anticoagulants; Z51.81 Encounter for therapeutic drug level monitoring | CPT/HCPCS: 85610; 99211 ==

== ENCOUNTER → 2022-09-14 15:13 | Outpatient (BNVA) | payer OTHER, SELFPAY | PROVIDERS: PCP Internal Medicine; Visit Provider Surgery | DX: Z48.815 Encounter for surgical aftercare following surgery on the digestive system (principal); Z87.19 Personal history of other diseases of the digestive system; Z98.890 Other specified postprocedural states | CPT/HCPCS: 99212 ==

== ENCOUNTER → 2022-09-16 15:58 | Outpatient (BNVA) | payer OTHER, SELFPAY | PROVIDERS: PCP Internal Medicine; Visit Provider Internal Medicine | DX: Z86.718 Personal history of other venous thrombosis and embolism (principal); Z79.01 Long term (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 of anticoagulants; Z51.81 Encounter for therapeutic drug level monitoring | CPT/HCPCS: 85610; 99211 ==

== ENCOUNTER → 2022-09-30 15:30 | Outpatient (BNVA) | payer OTHER, SELFPAY | PROVIDERS: PCP Internal Medicine; Visit Provider Internal Medicine | DX: I82.402 Acute embolism and thrombosis of unspecified deep veins of left lower extremity (principal); Z79.01 Long term (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 of anticoagulants; Z51.81 Encounter for therapeutic drug level monitoring | CPT/HCPCS: 85610; 99211 ==

== ENCOUNTER → 2022-10-21 15:39 | Outpatient (BNVA) | payer OTHER, SELFPAY | PROVIDERS: PCP Internal Medicine; Visit Provider Internal Medicine | DX: I82.402 Acute embolism and thrombosis of unspecified deep veins of left lower extremity (principal); Z79.01 Long term (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 of anticoagulants; Z51.81 Encounter for therapeutic drug level monitoring | CPT/HCPCS: 85610; 99211 ==

== ENCOUNTER → 2022-11-06 15:42 | Outpatient (BNVA) | payer OTHER, SELFPAY | PROVIDERS: PCP Internal Medicine; Visit Provider Hospitalist | DX: D86.9 Sarcoidosis, unspecified (principal); J18.9 Pneumonia, unspecified organism; R05.9 Cough, unspecified; R91.8 Other nonspecific abnormal finding of lung field; D68.59 Other primary thrombophilia; Z79.01 Long term (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 of anticoagulants; Z79.52 Long term (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 of systemic steroids | CPT/HCPCS: 99212 ==

== ENCOUNTER 2022-11-11 06:00 | Outpatient (REF) | payer OTHER, SELFPAY | END 2022-11-11 06:01 | disposition home or self-care (01) | LOC: HO.LAB 06:00 | PROVIDERS: Absent Provider Hospitalist; PCP Internal Medicine; Visit Provider Internal Medicine | DX: R79.89 Other specified abnormal findings of blood chemistry (principal); R73.02 Impaired glucose tolerance (oral); E78.00 Pure hypercholesterolemia, unspecified; I82.402 Acute embolism and thrombosis of unspecified deep veins of left lower extremity; Z51.81 Encounter for therapeutic drug level monitoring; Z79.01 Long term (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 of anticoagulants | CPT/HCPCS: 36415; 80053; 80061; 83036; 84153; 84439; 84443; 85025; 85610; 99211 ==

== ENCOUNTER 2022-11-12 06:33 | Day surgery (SDC) | payer OTHER, SELFPAY ==
[2022-11-12 06:48] VITALS: BMI 29.2
[2022-11-12 07:15] VITALS: BP 119/77; PULSE 85; RESP 18; TEMP 36.6; O2SAT 94
--- NOTE | 2022-11-12 07:57 | MHC.SHP ---
Pre-Procedural Eval Section A Date of Service: 11/12/22 The patient is an INPATIENT: No Changes since office visit: No Cold of Flu in the past 2 weeks, No New Medical Problems, No Changes in Medication and No Patient answered all questions The History & Physical has been completed within 30 days and I have reviewed it.: Yes Section B Chief Complaint: Interstitial lung disease with progressive fibroti Allergies: Allergies Allergy/AdvReac Type Severity Reaction Status Date / Time No Known Allergies Allergy Verified 11/12/22 07:02 [No Known Allergies*] Plan I have reviewed the history and physical and performed a pertinent physical examination on my patient. No changes have occurred unless specified. Time Spent With Patient Time: Total time managing care of this patient today ____ minutes.
--- NOTE | 2022-11-12 08:01 | HO.ANESPROP2 ---
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) Fatty liver (Acute) Onychomycosis (Acute) Right inguinal hernia (Acute) Sarcoidosis (Acute) Pulmonary nodules (Acute) Protein S deficiency (Acute) Hypercholesterolemia (Acute) BPH (benign prostatic hyperplasia) (Acute) Past Medical History Medical History Bleeding hemorrhoids BPH (benign prostatic hyperplasia) DVT (deep venous thrombosis) Glaucoma Hypercholesterolemia Hyperkalemia Leg pain, right LFT elevation Obesity (BMI 30.0-34.9) Protein S deficiency Pulmonary nodules Right inguinal hernia Sarcoidosis Thrombocytopenia Vitamin D deficiency Family History Family History Mother No problems noted. Father Medical history unknown Daughter In good health Sister In good health Brother Lung cancer Family history of problems with anesthesia: No Surgical History Surgical History History of appendectomy History of right inguinal hernia repair History of sinus surgery History of umbilical hernia repair Hx of colonoscopy Hx of lymph node biopsy History of Problems with Anesthesia: No Social History Social History Household Members: Significant Other Housing: House Are you a primary multi care technician to a significant other at home: No Do you presently have visiting nurse or other home services: No Alcohol intake: current Alcohol intake frequency: holidays/special occasions only Patient Tobacco Use Status: Never used Tobacco e-Cigarette/Vaping Use: Never Used Second Hand Smoke Exposure: No Are you DNR?: No Advance Directives: No Advance Directives Information Provided: Yes Nutrition Risks: No Nutritional Risk service: No Current occupational status: employed Cognitive needs: No Hearing needs: No Vision needs: Yes Meds Allergies Allergy/AdvReac Type Severity Reaction Status Date / Time No Known Allergies Allergy Verified 11/12/22 07:02 [No Known Allergies*] Active Medications: Current Medications Lactated Ringer's (Lr) 1,000 mls @ 50 mls/hr IVCONT .Q20H MAJO Last Admin: 11/12/22 07:03 Dose: 50 mls/hr Home Medications Medication Instructions Recorded Confirmed Last Taken Type prednisolone acetate 1 % eye 1 drp ophthalmic (eye) BEDTIME 05/13/21 11/11/22 08/24/22 History drops,suspension (Pred Forte) prednisone 5 mg tablet 7.5 mg PO BEDTIME 08/17/22 11/11/22 08/24/22 History 0700 warfarin 4 mg tablet (Jantoven) 4 mg PO BEDTIME 08/17/22 11/12/22 11/09/22 History Exam Exam Date and Time: November 12, 2022 0801 Height,Weight and Vital Signs: Height 5 ft 4 in Weight 77.111 kg Last Vital Signs Temp 97.8 F 11/12/22 07:15 Pulse 85 11/12/22 07:15 Resp 18 11/12/22 07:15 BP 119/77 11/12/22 07:15 Pulse Ox 94 11/12/22 07:15 O2 Del Method Room Air 11/12/22 07:15 Pertinent Lab Results Pertinent Lab Results: Laboratory Tests 11/12/22 07:02 PT 13.1 INR 1.1 Airway Mallampati Class: I TM Dist: >3cm Neck ROM: Full Loose/Missing/Broken Teeth: Yes and Upper Heart: ok Lungs: freq cough Assessment and Plan Assessment Anesthesia Assessment: Anesthesia Plan Discussed and Chart Reviewed Final Anesthetic Review Family History of Problems with Anesthesia: No History of Problems with Anesthesia: No NPO: Yes ASA Class: III Final Preanesthetic Review: No Changes in Pt Med Stat, Meds/Allgs Chart Reviewed, Consent Obtained/Reviewed and Anes Risks/Benef Reviewed Patient Risk: High Procedure Risk: Intermediate Anesthetic Plan Anesthetic Plan: GA and Agree w/ Assess. and Plan Disposition: Standard PACU
--- NOTE | 2022-11-12 08:09 | PC.NURSE ---
Dr. Masters and Dr. Da Silva updated regarding patient lung sounds and cough noted in SSS. no interventions at this time.
--- NOTE | 2022-11-12 08:56 | PM.OP ---
Brief Operative Note Date of Service: 11/12/22 Pre-op diagnosis: cough Post-op diagnosis: other (bronchitis, bronchomalecia) Procedure: Bronchoscopy with biopsy, brushings, washings Implants: Surgeon: Chaparro Da Silva MD Anesthesia: GLMA Was an Dynamite Shooter used for this Procedure?: No Estimated blood loss (mL): 1 Pathology: other (RLL biopsy) Condition: stable Disposition: same day
[2022-11-12 09:02] VITALS: BP 114/55; PULSE 86; RESP 22; TEMP 36.4; O2SAT 90
[2022-11-12 09:07] VITALS: BP 107/58; PULSE 78; RESP 17; O2SAT 97
[2022-11-12 09:12] VITALS: BP 115/62; PULSE 77; RESP 19; O2SAT 97
[2022-11-12 09:17] VITALS: BP 108/60; PULSE 84; RESP 19; O2SAT 97
[2022-11-12 09:32] VITALS: BP 131/78; PULSE 79; RESP 18; TEMP 36.4; O2SAT 94
== END 2022-11-12 09:55 | disposition home or self-care (01) ==
PROVIDERS: PCP Internal Medicine; Visit Provider Hospitalist
PROC: 0BJ08ZZ Inspection of Tracheobronchial Tree, Via Natural or Artificial Opening Endoscopic (ICD-10-PCS; CPT 31622; principal; 2022-11-12 08:30)
DX: J98.09 Other diseases of bronchus, not elsewhere classified (principal); J84.9 Interstitial pulmonary disease, unspecified; R91.8 Other nonspecific abnormal finding of lung field; Z86.718 Personal history of other venous thrombosis and embolism; Z79.01 Long term (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 of anticoagulants
CPT/HCPCS: 31625; 31623; 36415; 85610; 87070; 87102; 87106; 87116; 87205; 87206; 88112; 88305; J0171; J3010

== ENCOUNTER → 2022-11-17 15:35 | Outpatient (BNVA) | payer OTHER, SELFPAY | PROVIDERS: PCP Internal Medicine; Visit Provider Internal Medicine | DX: I82.402 Acute embolism and thrombosis of unspecified deep veins of left lower extremity (principal); Z79.01 Long term (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 of anticoagulants; Z51.81 Encounter for therapeutic drug level monitoring | CPT/HCPCS: 85610; 99212 ==

== ENCOUNTER 2022-11-20 15:36 | Outpatient (AMB) | payer OTHER, SELFPAY ==
[2022-11-20 15:42] LABS: Prothrombin Time Whole Bld POC 23.7 sec (11.1-13.5)
--- NOTE | 2022-11-20 16:02 | MHC.OFFVISCO ---
Intake Intake Visit Reasons: Anticoagulation Allergies No Known Allergies [No Known Allergies*] Allergy (Verified 11/20/22 15:36) Medication List - Last Reconciled 11/20/22 by Marcia Dave RN amoxicillin-pot clavulanate 875-125 mg 1 tab PO BID 10 days clotrimazole 1% 1 appl topical BID 4 weeks enoxaparin (Lovenox) 80 mg See Protocol subcut Q12H miconazole nitrate 2% (Zeasorb AF) 1 appl topical BID mycophenolate mofetil 1,000 mg (2 x 500 mg) PO BID 30 days prednisolone acetate 1% (Pred Forte) 1 drp ophthalmic (eye) BEDTIME prednisone 7.5 mg PO BEDTIME warfarin (Jantoven) 4 mg See Protocol PO BEDTIME Nursing Note INR: 2.0 in therapeutic range on antbx amoxicillin - may raise the INR Medications and supplements reviewed- cont lovneox today after bronch he stated md found bacteria in his lungs Denies any signs and symptoms of bleeding or bruising or clotting. Bleeding, bruising, clotting discussed Nutritional guidance given: wait to eat greens in a few days Dose: resume usual dose and F/U INR: 1 week Patient verbalizes understanding of instructions given Anti-Coag Initial Assessment Social Hx Patient Tobacco Use Status: Never used Tobacco alcohol intake: current Alcohol intake frequency: holidays/special occasions only Coding Level of Care Code Est Patient Level 1 Diagnoses Current use of anticoagulant therapy Z79.01 Assessment & Plan Assessment & Plan (1) Current use of anticoagulant therapy: Code(s): Z79.01 - senior care (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
== END 2022-11-20 16:06 | disposition home or self-care (01) ==
LOC: HO.ACS 15:36
PROVIDERS: PCP Internal Medicine; Visit Provider Internal Medicine
DX: Z79.01 Long term (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 of anticoagulants (principal)

== ENCOUNTER → 2022-11-20 15:36 | Outpatient (BNVA) | payer OTHER, SELFPAY | PROVIDERS: PCP Internal Medicine; Visit Provider Internal Medicine | DX: I82.402 Acute embolism and thrombosis of unspecified deep veins of left lower extremity (principal); Z79.01 Long term (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 of anticoagulants; Z51.81 Encounter for therapeutic drug level monitoring | CPT/HCPCS: 85610; 99211 ==

== ENCOUNTER 2022-11-26 10:53 | Outpatient (AMB) | payer OTHER, SELFPAY ==
--- NOTE | 2022-11-26 10:54 | MHC.OFFVIS ---
Intake Intake Visit Reasons: S/p bronch Intake Note: Pt on phone with Dr. Da Silva. Allergies No Known Allergies [No Known Allergies*] Allergy (Verified 11/27/22 08:02) HPI HPI Comments History of Present Illness Details The patient is a 57-year-old gentleman with a known history of sarcoidosis. 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 At that point he also had a rash on the face. The patient was noted to have lupus pernio. He did have a biopsy-proven sarcoidosis. The patient did have a CT scan of the chest demonstrating pulmonary nodules and also lymphadenopathy. Although the diagnosis of sarcoid was made based on the skin biopsy. I do not have those results is all per the patient. 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 He was placed on prednisone. Ultimately more recently than that the patient start having worsening shortness of breath and cough. Was then placed on methotrexate up to 8 tablets of the 2.5 mg weekly. However after he started the methotrexate he has been noticing worsening cough and shortness of breath. He did have a recent chest x-ray done at the [facility] which I personally reviewed. It appears that he has a chronically elevated right hemidiaphragm but now appears to have more hazy opacities bilaterally suggesting pneumonitis. I did compare that to his previous x-ray from October which she did not have the degree of pneumonitis as he has now. Therefore I am concerned that he is having some adverse effects of the methotrexate. Assess as far as I know the only involvement of the sarcoid has been his lungs his skin and also the uveitis. 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 It is likely that the thrombotic issues are also related to sarcoidosis. He denies any other involvement of any other end-organ. We did review his blood work his total bili is a little elevated and he has had issues with liver in the past. But is hard to know for sure if is related to sarcoid any other etiology. The patient complains that his cough is very significant. He had call the on-call physician was given Tessalon Perles without any significant improvement. For now while we deal with his active sarcoid issue go ahead and give her some codeine cough syrup patient does use state Travis often at nighttime to make sure that he can stop coughing. 08/03/2022 the patient is here for a pulmonary follow-up visit. He still the same. He still complains of cough and some chest congestion. The mucus is yellowish and whitish in color. [id number] severity. Did have worse at nighttime. The patient did switch over to mycophenolate from methotrexate. Seems to be tolerating it although still low dose of 100 mg twice a day. Was able to cut down the prednisone from 20 mg to 10 mg which is reassuring. Will continue to optimize his sarcoid therapy by increasing the mycophenolate to 1000 mg twice a day and also decreasing the prednisone some 0.5 mg. He also will going to go very slowly to make sure that he is able to decrease her dose effectively. We did review his CT scan of the chest demonstrating significant interstitial lung disease and pulmonary nodules when compared to his CT scan from 2014. He also had pulmonary function studies demonstrating a moderate restrictive ventilatory defect. In part he does have an elevated right hemidiaphragm that is resulting in diminished lung capacity. At this point will continue to maintain him on therapy to make sure that he does not have any progression of the scarring if is due to the sarcoidosis. 11/06/2022 the patient is here for a pulmonary follow-up visit. He continues with his ongoing chest congestion and cough. Moderate severity. Worse at nighttime. Has not responded to the respiratory therapy or the immunosuppressive therapy. He does bring up chest congestion although have been able to get a culture. We did review his CT scan of the chest. The patient does have normal findings. Based on his ongoing cough and his lack of response to his current therapy will plan to perform bronchoscopy. He does have pertinent S deficiency with hypercoagulable state and currently on Coumadin. I will be working with the Coumadin clinic in order to get him ready for the procedure. 11/26/2022 the patient is a telehealth visit. The patient is status post bronchoscopy. Patient did have significant evidence of bronchomalacia. This is likely contributing to his significant cough. He also had moderate mucoid secretions that were suction. Patient is cultures were all negative as of now. Still waiting for the mycobacterial cultures to come back from [place]. His endobronchial biopsies were negative for any sarcoidosis. Unfortunate patient continues to cough. Explained to him that the issue is the collapsing of the airways. At this point will start him on CPT with the Acapella valve to help him clear secretions. The patient will continue with current respiratory therapy. Also will try to decrease down his CellCept specially since there is no evidence of any active disease at this time. [facility] Medical History (Updated 11/28/22 @ 22:04 by Chaparro Da Silva MD) Bleeding hemorrhoids BPH (benign prostatic hyperplasia) Bronchomalacia DVT (deep venous thrombosis) Glaucoma Hypercholesterolemia Hyperkalemia Leg pain, right LFT elevation Obesity (BMI 30.0-34.9) Protein S deficiency Pulmonary nodules Right inguinal hernia Sarcoidosis Thrombocytopenia Vitamin D deficiency Surgical History History of appendectomy History of right inguinal hernia repair History of sinus surgery History of umbilical hernia repair Hx of colonoscopy Hx of lymph node biopsy Family History Mother No problems noted. Father Medical history unknown Daughter In good health Sister In good health Brother Lung cancer Social History Household Members: Significant Other Housing: House Are you a primary career development counselor to a significant other at home: No Do you presently have visiting nurse or other home services: No Alcohol intake: current Alcohol intake frequency: holidays/special occasions only Patient Tobacco Use Status: Never used Tobacco e-Cigarette/Vaping Use: Never Used Second Hand Smoke Exposure: No service: No Current occupational status: employed Cognitive needs: No Hearing needs: No Vision needs: Yes Review of Systems Const Denies body aches and Denies fever(s) Eyes Denies change in vision ENT Denies change in voice Card Denies chest pain and Reports dyspnea on exertion Resp Reports chest congestion, Reports cough, Denies hemoptysis, Reports dyspnea on exertion and Denies wheezing GI Denies no additional complaints Musc Reports no additional complaints Skin/Breast Denies new lesions and Reports rash Neuro Reports no additional complaints Endo Denies flushing Sina/Lymph Denies easy bruising and Denies lymphadenopathy Aller/Immun Denies wheezing Physical Exam Const General: comfortable Orientation/consciousness: patient oriented x3 Resp Effort & Inspection: able to speak in complete sentences Neuro General: patient oriented x3 Assessment & Plan Assessment & Plan (1) Sarcoid: Comment: 2011 Code(s): D86.9 - Sarcoidosis, unspecified (2) Pulmonary nodules: Code(s): R91.8 - Other nonspecific abnormal finding of lung field (3) Pneumonitis: Code(s): J18.9 - Pneumonia, unspecified organism (4) Cough: Code(s): R05.9 - Cough, unspecified (5) correction systemic steroid 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: Code(s): 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.52 - 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 (6) Bronchomalacia: Code(s): J98.09 - Other diseases of bronchus, not elsewhere classified Plan continue Prednisone 7.5mg daily decrease Mycophenalate 1000 mg/500mg, will need to monitor LFTs start CPT with acapella valve Awaiting all cultures F/U 3-4 months Medications: Discontinued warfarin 4 mg See Protocol PO DAILY 90 tabs 3RF I82.409 - Acute embolism and thrombosis of unspecified deep veins of unspecified lower extremity prednisone 10 mg (2 x 5 mg) PO DAILY 30 days 60 tabs 8RF Telehealth Telehealth Location of provider rendering services: practice address Location of patient: address on file Patient Identification confirmed using: Name, : Yes Telehealth method: voice only Patient verbally consented to treatment: Yes Patient verbally consented to billing insurance company: Yes Patient informed of any privacy concerns related to visit: Yes Coding Level of Care Code Tele Est Pt Level 4 (84653) Diagnoses Sarcoid D86.9 Pulmonary nodules R91.8 Pneumonitis J18.9 Cough R05.9 correction systemic steroid user Z79.52 Bronchomalacia J98.09 Time Spent (min) 15
== END 2022-11-26 11:07 | disposition home or self-care (01) ==
PROVIDERS: PCP Internal Medicine; Visit Provider Hospitalist
DX: D86.9 Sarcoidosis, unspecified (principal); R91.8 Other nonspecific abnormal finding of lung field; J18.9 Pneumonia, unspecified organism; R05.9 Cough, unspecified; Z79.52 Long term (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 of systemic steroids; J98.09 Other diseases of bronchus, not elsewhere classified
CPT/HCPCS: 99214

== ENCOUNTER → 2022-11-26 10:53 | Outpatient (BNVA) | payer OTHER, SELFPAY | PROVIDERS: PCP Internal Medicine; Visit Provider Hospitalist | DX: D86.9 Sarcoidosis, unspecified (principal); R91.8 Other nonspecific abnormal finding of lung field; J18.9 Pneumonia, unspecified organism; J98.09 Other diseases of bronchus, not elsewhere classified; R05.9 Cough, unspecified; Z79.52 Long term (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 of systemic steroids | CPT/HCPCS: 99212 ==

== ENCOUNTER 2022-11-27 08:02 | Outpatient (AMB) | payer OTHER, SELFPAY ==
[2022-11-27 08:12] LABS: Prothrombin Time Whole Bld POC 26.3 sec (11.1-13.5); ~PT, ~INR - Anti Coag Clinic 2.2 (0.9-1.1)
--- NOTE | 2022-11-27 08:15 | MHC.OFFVISCO ---
Intake Intake Visit Reasons: Anticoagulation Allergies No Known Allergies [No Known Allergies*] Allergy (Verified 11/27/22 08:02) Medication List - Last Reconciled 11/27/22 by Mami Sharp RN amoxicillin-pot clavulanate 875-125 mg 1 tab PO BID 10 days clotrimazole 1% 1 appl topical BID 4 weeks miconazole nitrate 2% (Zeasorb AF) 1 appl topical BID mycophenolate mofetil 1,000 mg (2 x 500 mg) PO BID 30 days prednisolone acetate 1% (Pred Forte) 1 drp ophthalmic (eye) BEDTIME prednisone 7.5 mg PO BEDTIME warfarin (Jantoven) 4 mg See Protocol PO BEDTIME Nursing Note Amb to ACS feeling ok, harsh cough, s/p bronchoscopy earlier in month Medications and supplements reviewed, completed augmentin yesterday, discussion regarding potential for continued rise No other changes in health, diet, medications, or supplements Denies any unusual signs and symptoms of bruising, bleeding Denies any new Chest pain, SOB, or clotting INR: 2.2 in therapeutic range Nutritional guidance given:continue with extra green secondary to completion of a raising antibiotic Dose: continue usual dosing;6mg x 1 day and 4mg x 6 days F/U INR: 10 days as he is away 12/02 -12/08 Patient verbalizes understanding of instructions given with accurate read back/ teach back of dosing Anti-Coag Initial Assessment Social Hx Patient Tobacco Use Status: Never used Tobacco alcohol intake: current Alcohol intake frequency: holidays/special occasions only Coding Level of Care Code Est Patient Level 1 Diagnoses Current use of anticoagulant therapy Z79.01 Time Spent (min) 15 Assessment & Plan Assessment & Plan (1) Current use of anticoagulant therapy: Code(s): Z79.01 - 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
== END 2022-11-27 08:26 | disposition home or self-care (01) ==
LOC: HO.ACS 08:02
PROVIDERS: PCP Internal Medicine; Visit Provider Internal Medicine
DX: Z79.01 Long term (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 of anticoagulants (principal)

== ENCOUNTER → 2022-11-27 08:02 | Outpatient (BNVA) | payer OTHER, SELFPAY | PROVIDERS: PCP Internal Medicine; Visit Provider Internal Medicine | DX: I82.402 Acute embolism and thrombosis of unspecified deep veins of left lower extremity (principal); Z79.01 Long term (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 of anticoagulants; Z51.81 Encounter for therapeutic drug level monitoring | CPT/HCPCS: 85610; 99211 ==

== ENCOUNTER 2022-12-09 08:03 | Outpatient (AMB) | payer OTHER, SELFPAY ==
[2022-12-09 08:09] LABS: Prothrombin Time Whole Bld POC 27.1 sec (11.1-13.5); ~PT, ~INR - Anti Coag Clinic 2.3 (0.9-1.1)
--- NOTE | 2022-12-09 08:14 | MHC.OFFVISCO ---
Intake Intake Visit Reasons: Anticoagulation Allergies No Known Allergies [No Known Allergies*] Allergy (Verified 12/09/22 08:04) Medication List - Last Reconciled 12/09/22 by Paz Paiz RN amoxicillin-pot clavulanate 875-125 mg 1 tab PO BID 10 days clotrimazole 1% 1 appl topical BID 4 weeks miconazole nitrate 2% (Zeasorb AF) 1 appl topical BID mycophenolate mofetil 1,000 mg (2 x 500 mg) PO BID 30 days prednisolone acetate 1% (Pred Forte) 1 drp ophthalmic (eye) BEDTIME prednisone 7.5 mg PO BEDTIME warfarin (Jantoven) 4 mg See Protocol PO BEDTIME Nursing Note COUGH PERSISTS WITH OCCAIS.SOB PRIOR TO EXPECTORATION . PT.IS DONE WITH ANTIBIOTICS AND REMAINS ON LOW DOSE PREDNISONE. HE HAS HAD NO CP OR SX OF BLEEDING. WILL CONTINUE PRESENT DOSE AND FOLLOW-UP IN 2 WEEKS. 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
== END 2022-12-09 08:17 | disposition home or self-care (01) ==
LOC: HO.ACS 08:03
PROVIDERS: PCP Internal Medicine; Visit Provider Internal Medicine
DX: Z79.01 Long term (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 of anticoagulants (principal)

== ENCOUNTER → 2022-12-09 08:03 | Outpatient (BNVA) | payer OTHER, SELFPAY | PROVIDERS: PCP Internal Medicine; Visit Provider Internal Medicine | DX: I82.402 Acute embolism and thrombosis of unspecified deep veins of left lower extremity (principal); Z79.01 Long term (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 of anticoagulants; Z51.81 Encounter for therapeutic drug level monitoring | CPT/HCPCS: 85610; 99211 ==

== ENCOUNTER 2022-12-24 07:54 | Outpatient (AMB) | payer OTHER, SELFPAY ==
[2022-12-24 08:09] LABS: Prothrombin Time Whole Bld POC 25.5 sec (11.1-13.5); ~PT, ~INR - Anti Coag Clinic 2.1 (0.9-1.1)
--- NOTE | 2022-12-24 08:11 | MHC.OFFVISCO ---
Intake Intake Visit Reasons: Anticoagulation Allergies No Known Allergies [No Known Allergies*] Allergy (Verified 12/24/22 08:03) Medication List - Last Reconciled 12/24/22 by Mami Sharp RN clotrimazole 1% 1 appl topical BID 4 weeks miconazole nitrate 2% (Zeasorb AF) 1 appl topical BID mycophenolate mofetil 1,000 mg (2 x 500 mg) PO BID 30 days prednisolone acetate 1% (Pred Forte) 1 drp ophthalmic (eye) BEDTIME prednisone 7.5 mg PO BEDTIME warfarin (Jantoven) 4 mg See Protocol PO BEDTIME Nursing Note Amb to ACS feeling well Medications and supplements reviewed, EMAR updated, completed augmentin No changes in health, diet, medications, or supplements Denies any unusual signs and symptoms of bruising, bleeding Denies any new Chest pain, SOB, or clotting INR: 2.1 in therapeutic range Nutritional guidance given: balance greens and reds in diet, be consistent, be aware of raising effect of crow tomatoes Dose: continue usual dosing; 6mg x 1 day and 4 mg x 6 days F/U INR: 3 weeks Patient verbalizes understanding of instructions given with accurate read back/ teach back of dosing Anti-Coag Initial Assessment Social Hx Patient Tobacco Use Status: Never used Tobacco alcohol intake: current Alcohol intake frequency: holidays/special occasions only Coding Level of Care Code Est Patient Level 1 Diagnoses Current use of anticoagulant therapy Z79.01 Time Spent (min) 15 Assessment & Plan Assessment & Plan (1) Current use of anticoagulant therapy: Code(s): Z79.01 - [facility] (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
== END 2022-12-24 08:14 | disposition home or self-care (01) ==
LOC: HO.ACS 07:54
PROVIDERS: PCP Internal Medicine; Visit Provider Internal Medicine
DX: Z79.01 Long term (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 of anticoagulants (principal)

== ENCOUNTER → 2022-12-24 07:54 | Outpatient (BNVA) | payer OTHER, SELFPAY | PROVIDERS: PCP Internal Medicine; Visit Provider Internal Medicine | DX: I82.402 Acute embolism and thrombosis of unspecified deep veins of left lower extremity (principal); Z79.01 Long term (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 of anticoagulants; Z51.81 Encounter for therapeutic drug level monitoring | CPT/HCPCS: 85610; 99211 ==

== ENCOUNTER 2023-01-14 07:55 | Outpatient (AMB) | payer OTHER, SELFPAY ==
[2023-01-14 08:02] LABS: Prothrombin Time Whole Bld POC 23.6 sec (11.1-13.5)
--- NOTE | 2023-01-14 08:04 | MHC.OFFVISCO ---
Intake Intake Visit Reasons: Anticoagulation Allergies No Known Allergies [No Known Allergies*] Allergy (Verified 01/14/23 07:56) Medication List - Last Reconciled 01/14/23 by Mami Sharp RN clotrimazole 1% 1 appl topical BID 4 weeks miconazole nitrate 2% (Zeasorb AF) 1 appl topical BID mycophenolate mofetil 1,000 mg (2 x 500 mg) PO BID 30 days prednisolone acetate 1% (Pred Forte) 1 drp ophthalmic (eye) BEDTIME prednisone 7.5 mg PO BEDTIME warfarin (Jantoven) 4 mg See Protocol PO BEDTIME Nursing Note Amb to ACS feeling well, just hot Medications and supplements reviewed No changes in health, diet, medications, or supplements Denies any unusual signs and symptoms of bruising, bleeding Denies any new Chest pain, SOB, or clotting INR: 2.0 just in therapeutic range Nutritional guidance given: reds today then balance greens and reds in diet Dose: continue usual dosing;4 mg daily x 6 days and 6mg x 1 day F/U INR:3 weeks Patient verbalizes understanding of instructions given with accurate read back/ teach back of dosing Anti-Coag Initial Assessment Social Hx Patient Tobacco Use Status: Never used Tobacco alcohol intake: current Alcohol intake frequency: holidays/special occasions only Coding Level of Care Code Est Patient Level 1 Diagnoses Current use of anticoagulant therapy Z79.01 Time Spent (min) 15 Results AMB INR Fingerstick AMB INR Fingerstick 2.0 Last Edit by Mami Sharp RN on 01/14/23 08:02 interface failure Assessment & Plan Assessment & Plan (1) Current use of anticoagulant therapy: Code(s): Z79.01 - 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
== END 2023-01-14 08:06 | disposition home or self-care (01) ==
LOC: HO.ACS 07:55
PROVIDERS: PCP Internal Medicine; Visit Provider Internal Medicine
DX: Z79.01 Long term (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 of anticoagulants (principal)

== ENCOUNTER → 2023-01-14 07:55 | Outpatient (BNVA) | payer OTHER, SELFPAY | PROVIDERS: PCP Internal Medicine; Visit Provider Internal Medicine | DX: I82.402 Acute embolism and thrombosis of unspecified deep veins of left lower extremity (principal); Z79.01 Long term (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 of anticoagulants; Z51.81 Encounter for therapeutic drug level monitoring | CPT/HCPCS: 85610; 99211 ==

== ENCOUNTER 2023-01-29 15:25 | Outpatient (AMB) | payer OTHER, SELFPAY ==
--- NOTE | 2023-01-29 15:29 | A.OFFVIS_ITS ---
Intake Vital Signs 01/29/23 15:30 Height 5 ft 4 in Weight 168 lb 10.458 oz BMI 28.9 BP 124/64 Blood Pressure Location Rt brachial Position Sitting Respiration 14 Pulse 78 Pulse Source Pulse Oximeter Pulse Oximetry (%) 92 Oxygen Delivery Method Room Air Intake Visit Reasons: ILD Allergies No Known Allergies [No Known Allergies*] Allergy (Verified 01/29/23 15:32) Medication List - Last Reconciled 01/29/23 by Stephanie John, DRILL OPERATOR [employer] clotrimazole 1% 1 appl topical BID 4 weeks miconazole nitrate 2% (Zeasorb AF) 1 appl topical BID mycophenolate mofetil 1,000 mg (2 x 500 mg) PO BID 30 days prednisolone acetate 1% (Pred Forte) 1 drp ophthalmic (eye) BEDTIME prednisone 7.5 mg PO BEDTIME warfarin (Jantoven) 4 mg See Protocol PO BEDTIME HPI HPI Comments History of Present Illness Details The patient is a 57-year-old gentleman with a known history of sarcoidosis. 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 At that point he also had a rash on the face. The patient was noted to have lupus pernio. He did have a biopsy- proven sarcoidosis. The patient did have a CT scan of the chest demonstrating pulmonary nodules and also lymphadenopathy. Although the diagnosis of sarcoid was made based on the skin biopsy. I do not have those results is all per the patient. 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 He was placed on prednisone. Ultimately more recently than that the patient start having worsening shortness of breath and cough. Was then placed on methotrexate up to 8 tablets of the 2.5 mg weekly. However after he started the methotrexate he has been noticing worsening cough and shortness of breath. He did have a recent chest x-ray done at the [facility] which I personally reviewed. It appears that he has a chronically elevated right hemidiaphragm but now appears to have more hazy opacities bilaterally suggesting pneumonitis. I did compare that to his previous x-ray from October which she did not have the degree of pneumonitis as he has now. Therefore I am concerned that he is having some adverse effects of the methotrexate. Assess as far as I know the only involvement of the sarcoid has been his lungs his skin and also the uveitis. 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 It is likely that the thrombotic issues are also related to sarcoidosis. He denies any other involvement of any other end-organ. We did review his blood work his total bili is a little elevated and he has had issues with liver in the past. But is hard to know for sure if is related to sarcoid any other etiology. The patient complains that his cough is very significant. He had call the on-call physician was given Tesadriana Yanges without any significant improvement. For now while we deal with his active sarcoid issue go ahead and give her some codeine cough syrup patient does use state Travis often at nighttime to make sure that he can stop coughing. 08/03/2022 the patient is here for a pulm onary follow-up visit. He still the same. He still complains of cough and some chest congestion. The mucus is yellowish and whitish in color. [id number] severity. Did have worse at nighttime. The patient did switch over to mycophenolate from methotrexate. Seems to be tolerating it although still low dose of 100 mg twice a day. Was able to cut down the prednisone from 20 mg to 10 mg which is reassuring. Will continue to optimize his sarcoid therapy by increasing the mycophenolate to 1000 mg twice a day and also decreasing the prednisone some 0.5 mg. He also will going to go very slowly to make sure that he is able to decrease her dose effectively. We did review his CT scan of the chest demonstrating significant interstitial lung disease and pulmonary nodules when compared to his CT scan from 2015. He also had pulmonary function studies demonstrating a moderate restrictive ventilatory defect. In part he does have an elevated right hemidiaphragm that is resulting in diminished lung capacity. At this point will continue to maintain him on therapy to make sure that he does not have any progression of the scarring if is due to the sarcoidosis. 11/06/2022 the patient is here for a pulmonary follow-up visit. He continues with his ongoing chest congestion and cough. Moderate severity. Worse at nighttime. Has not responded to the respiratory therapy or the immunosuppressive therapy. He does bring up chest congestion although have been able to get a culture. We did review his CT scan of the chest. The patient does have normal findings. Based on his ongoing cough and his lack of response to his current therapy will plan to perform bronchoscopy. He does have pertinent S deficiency with hypercoagulable state and currently on Coumadin. I will be working with the Coumadin clinic in order to get him ready for the procedure. 01/29/2023 the patient is [facility] for [facility] follow up visit. Complaining that the cough is no better. Moderate in severity. Patient did have significant evidence of bronchomalacia. This is likely contributing to his significant cough. He also had moderate mucoid secretions that were suction. Patient is cultures were all negative. His endobronchial biopsies were negative for any sarcoidosis. Unfortunate patient continues to cough. Explained to him that the issue is the collapsing of the airways. At this point will start him on CPT with the Acapella valve to help him clear secretions. The patient will continue with current respiratory therapy. He will start cough suppressant. [facility] Medical History (Updated 01/29/23 @ 15:31 by Chaparro Da Silva MD) Bronchomalacia Right inguinal hernia Sarcoidosis Pulmonary nodules Obesity (BMI 30.0-34.9) Bleeding hemorrhoids Leg pain, right LFT elevation Hyperkalemia Glaucoma BPH (benign prostatic hyperplasia) Vitamin D deficiency Hypercholesterolemia Protein S deficiency DVT (deep venous thrombosis) Thrombocytopenia Surgical History History of right inguinal hernia repair Hx of lymph node biopsy Hx of colonoscopy History of umbilical hernia repair History of appendectomy History of sinus surgery Family History Mother No problems noted. Father Medical history unknown Daughter In good health Sister In good health Brother Lung cancer Social History Household Members: Significant Other Housing: House Are you a primary career development manager to a significant other at home: No Do you presently have visiting nurse or other home services: No Alcohol intake: current Alcohol intake frequency: holidays/special occasions only Patient Tobacco Use Status: Never used Tobacco e-Cigarette/Vaping Use: Never Used Second Hand Smoke Exposure: No service: No Current occupational status: employed Cognitive needs: No Hearing needs: No Vision needs: Yes Review of Systems Const Denies body aches and Denies fever(s) Eyes Denies change in vision ENT Denies change in voice Card Denies chest pain and Reports dyspnea on exertion Resp Reports chest congestion, Reports cough, Denies hemoptysis, Reports dyspnea on exertion and Denies wheezing GI Denies no additional complaints Musc Reports no additional complaints Skin/Breast Denies new lesions and Reports rash Neuro Reports no additional complaints Endo Denies flushing Sina/Lymph Denies easy bruising and Denies lymphadenopathy Aller/Immun Denies wheezing Physical Exam Vital Signs: Last Vital Signs Pulse 78 01/29/23 15:30 Resp 14 01/29/23 15:30 BP 124/64 01/29/23 15:30 Pulse Ox 92 01/29/23 15:30 Oxygen Delivery Method Room Air 01/29/23 15:30 BMI result Body Mass Index 28.9 Const General: comfortable HEENT Head: Yes normocephalic Eyes General: appearance normal, both eyes and all related structures Neck Neck: Yes supple Chest Chest palpation & inspection: normal inspection of the chest Resp Effort & Inspection: normal respiratory effort Auscultation: diminished lung sounds Cardio Rate: regular rate Rhythm: regular rhythm Heart sounds: S1 normal heart sound present and S2 normal heart sound present GI Auscultation: normal bowel sounds Skin General skin exam: no rashes or lesions noted Extrem General: Yes no clubbing, cyanosis or edema Assessment & Plan Assessment & Plan (1) Sarcoid: Comment: 2011 Code(s): D86.9 - Sarcoidosis, unspecified (2) Pulmonary nodules: Code(s): R91.8 - Other nonspecific abnormal finding of lung field (3) Pneumonitis: Code(s): J18.9 - Pneumonia, unspecified organism (4) Cough: Code(s): R05.9 - Cough, unspecified Qualifiers: Cough type: chronic Qualified Code(s): R05.3 - Chronic cough (5) 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 [place] Code(s): D86.9 - Sarcoidosis, unspecified Plan continue Prednisone 7.5mg daily continue Mycophenalate 500mg BID, will need to monitor LFTs CPT with acapella valve cough suppressant Bloodwork Sputum culture F/U 3-4 months Orders: Orders Complete Blood Count Auto Diff 01/29/23 D86.9 - Sarcoidosis, unspecified, J98.09 - Other diseases of bronchus, not elsewhere classified, R05 - Cough Basic Metabolic Panel 01/29/23 D86.9 - Sarcoidosis, unspecified, J98.09 - Other diseases of bronchus, not elsewhere classified, R05 - Cough Liver Panel 01/29/23 D86.9 - Sarcoidosis, unspecified, J98.09 - Other diseases of bronchus, not elsewhere classified, R05 - Cough Erythrocyte Sedimentation Rate 01/29/23 D86.9 - Sarcoidosis, unspecified, J98.09 - Other diseases of bronchus, not elsewhere classified, R05 - Cough Angiotensin Converting Enzyme 01/29/23 D86.9 - Sarcoidosis, unspecified, J98.09 - Other diseases of bronchus, not elsewhere classified, R05 - Cough Sputum Cult + Gram stain 01/29/23 R05 - Cough Medications: New codeine-guaifenesin 10-100 mg/5 mL 10 mL PO Q6H 10 days PRN 300 mL 0RF cough benzonatate 200 mg PO BID 30 days PRN 60 caps 4RF cough Coding Level of Care Code Est Pt Level 4 (29847) Diagnoses Sarcoid D86.9 Pulmonary nodules R91.8 Pneumonitis J18.9 Chronic cough R05.3 Cough type: chronic prison systemic steroid user Z79.52 Bronchomalacia J98.09 Time Spent (min) 18
[2023-01-29 15:30] VITALS: BP 124/64; PULSE 78; RESP 14; O2SAT 92; BMI 28.9
== END 2023-01-29 15:51 | disposition home or self-care (01) ==
PROVIDERS: PCP Internal Medicine; Visit Provider Hospitalist
DX: D86.9 Sarcoidosis, unspecified (principal); R91.8 Other nonspecific abnormal finding of lung field; J18.9 Pneumonia, unspecified organism; R05.3 Chronic cough; Z79.52 Long term (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 of systemic steroids; J98.09 Other diseases of bronchus, not elsewhere classified
CPT/HCPCS: 99214

== ENCOUNTER → 2023-01-29 15:25 | Outpatient (BNVA) | payer OTHER, SELFPAY | PROVIDERS: PCP Internal Medicine; Visit Provider Hospitalist | DX: D86.9 Sarcoidosis, unspecified (principal); R91.8 Other nonspecific abnormal finding of lung field; J18.9 Pneumonia, unspecified organism; R05.3 Chronic cough; J98.09 Other diseases of bronchus, not elsewhere classified; Z79.52 Long term (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 of systemic steroids; Z79.899 Other long term (current) drug therapy | CPT/HCPCS: 99212 ==

== ENCOUNTER 2023-02-04 08:00 | Outpatient (AMB) | payer OTHER, SELFPAY ==
--- NOTE | 2023-02-04 08:06 | MHC.OFFVISCO ---
Intake Intake Visit Reasons: Anticoagulation Allergies No Known Allergies [No Known Allergies*] Allergy (Verified 02/04/23 08:02) Medication List - Last Reconciled 02/04/23 by Robyn Ulloa RN benzonatate 200 mg PO BID PRN 30 days clotrimazole 1% 1 appl topical BID 4 weeks codeine-guaifenesin 10-100 mg/5 mL 10 mL PO Q6H PRN 10 days miconazole nitrate 2% (Zeasorb AF) 1 appl topical BID mycophenolate mofetil 1,000 mg (2 x 500 mg) PO BID 30 days prednisolone acetate 1% (Pred Forte) 1 drp ophthalmic (eye) BEDTIME prednisone 7.5 mg PO BEDTIME warfarin (Jantoven) 4 mg See Protocol PO BEDTIME Nursing Note INR 1.7-? out of therapeutic range- denies missed dose Medications and supplements reviewed Patient status: pt with chronic cough Medications or supplements: benzonatate prn and guifenisin with codeine prn- no interaction with warfarin per micromedex pt states meds not effective but cont to take Diet: same Denies any signs and symptoms of bleeding or clotting or unusual bruising Bleeding, bruising, clotting discussed Nutritional guidance given: no greens for 2 days, eat reds to raise Dose: 6 mg today and tomm then cont reg 4mg x 6, 6mg x 1 F/U INR Date : 2 weeks?? Patient verbalizing understanding of instructions given. Anti-Coag Initial Assessment Social Hx Patient Tobacco Use Status: Never used Tobacco alcohol intake: current Alcohol intake frequency: holidays/special occasions only Coding Level of Care Code Est Patient Level 1 Diagnoses Current use of anticoagulant therapy Z79.01 Assessment & Plan Assessment & Plan (1) Current use of anticoagulant therapy: Code(s): Z79.01 - residential (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
[2023-02-04 08:08] LABS: Prothrombin Time Whole Bld POC 20.5 sec (11.1-13.5); ~PT, ~INR - Anti Coag Clinic 1.7 (0.9-1.1)
== END 2023-02-04 08:16 | disposition home or self-care (01) ==
LOC: HO.ACS 08:00
PROVIDERS: PCP Internal Medicine; Visit Provider Internal Medicine
DX: Z79.01 Long term (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 of anticoagulants (principal)

== ENCOUNTER → 2023-02-04 08:00 | Outpatient (BNVA) | payer OTHER, SELFPAY | PROVIDERS: PCP Internal Medicine; Visit Provider Internal Medicine | DX: I82.402 Acute embolism and thrombosis of unspecified deep veins of left lower extremity (principal); Z79.01 Long term (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 of anticoagulants; Z51.81 Encounter for therapeutic drug level monitoring | CPT/HCPCS: 85610; 99211 ==

== ENCOUNTER 2023-02-08 15:18 | Outpatient (AMB) | payer OTHER, SELFPAY ==
[2023-02-08 15:19] VITALS: BP 122/68; PULSE 78; O2SAT 94; BMI 28.8
--- NOTE | 2023-02-08 15:19 | A.OFFPC_ITS ---
Vital Signs 02/08/23 15:19 Height 5 ft 4 in Weight 168 lb BMI 28.8 BP 122/68 Blood Pressure Location Lt brachial Position Sitting Pulse 78 Pulse Source Pulse Oximeter Temp Source Skin Pulse Oximetry (%) 94 Oxygen Delivery Method Room Air Intake Visit Reasons: 3 month f/u Direct Support Professional Required: No Allergies No Known Allergies [No Known Allergies*] Allergy (Verified 02/08/23 15:19) Tobacco use date assessed: 02/08/23 Dental Screening Dental Screen Date: 02/08/23 Did you have a dental visit in the last 12 months?: Yes Did you have a dental problem in the last 6 months where you did not have access to dental care?: No Was dental information given to patient?: Patient has dentist HPI 3 month f/u HPI Details 57-year-old overweight male with a histo ry of DVT on anticoagulation impaired glucose tolerance fatty liver sarcoidosis hypercholesterolemia BPH last seen in October 2022. Patient's colonoscopy is up-to-date April 2021 3 years. With the chronic cough patient was referred to Pulmonary diagnosis of bronchomalacia did endobronchial biopsies negative. For sarcoid patient was advised CPT with couple of valve continue with prednisone and mycophenolic acid 500 mg twice a day prescribed codeine preparation for cough. Patient also follows up with hematology oncology left lower extremity DVT 2014 evidence of protein S deficiency on long-term anticoagulation with Coumadin [facility] Medical History (Updated 02/08/23 @ 15:34 by Jaz Myers MD) Bronchomalacia Right inguinal hernia Sarcoidosis Pulmonary nodules Obesity (BMI 30.0-34.9) Bleeding hemorrhoids Leg pain, right LFT elevation Hyperkalemia Glaucoma BPH (benign prostatic hyperplasia) Vitamin D deficiency Hypercholesterolemia Protein S deficiency DVT (deep venous thrombosis) Thrombocytopenia Surgical History History of right inguinal hernia repair Hx of lymph node biopsy Hx of colonoscopy History of umbilical hernia repair History of appendectomy History of sinus surgery Family History Mother No problems noted. Father Medical history unknown Daughter In good health Sister In good health Brother Lung cancer Social History Household Members: Significant Other Housing: House Are you a primary care transition mgr to a significant other at home: No Do you presently have visiting nurse or other home services: No Alcohol intake: current Alcohol intake frequency: holidays/special occasions only Patient Tobacco Use Status: Never used Tobacco e-Cigarette/Vaping Use: Never Used Second Hand Smoke Exposure: No service: No Current occupational status: employed Cognitive needs: No Hearing needs: No Vision needs: Yes Questionnaire Thrive Questionnaire Date Thrive assessed: 08/21/22 AUDIT C Alcohol Use Questionnaire (AUDIT-C) 1. How often do you have a drink containing alcohol?: Monthly or less 2. How many drinks containing alcohol do you have on a typical day when you are drinking?: 1 or 2 3. How often do you have six or more drinks on one occasion?: Never Total Score: 1 SANDRA-7 AMB Questionnaire SANDRA-7 Date SANDRA - 7 assessed: 08/21/22 Source: Developed by Drs. Mason Burton, Irma Morales, Waldemar Mchugh and colleagues, with an educational dc from [employer]. Physical exam (Primary Care) Vital Signs: Last Vital Signs Pulse 78 02/08/23 15:19 BP 122/68 02/08/23 15:19 Pulse Ox 94 02/08/23 15:19 Oxygen Delivery Method Room Air 02/08/23 15:19 BMI result Body Mass Index 28.8 Tobacco/Smoking Status: Tobacco use Status Tobacco use date assessed 02/08/23 02/08/23 15:20 Patient Tobacco Use Status Never used Tobacco 02/08/23 15:20 e-Cigarette/Vaping Use Never Used 02/08/23 15:20 Thrive Assessment: Date of Thrive Assessment Date Thrive assessed 08/21/22 02/08/23 15:20 Const General: alert; No acute distress Eyes Conjunctivae: conjunctivae normal Resp Auscultation: clear to auscultation bilaterally Cardio Rate: regular rate Rhythm: regular rhythm GI Inspection: Yes normal to inspection Extrem General: Yes normal to inspection and No edema Office Procedures Flu Questionnaire Does the patient have a severe egg allergy?: No Does the patient have severe life threatening allergies?: No Does the patient have a fever or illness today?: No Has the patient ever had Guillain-[place] Syndrome?: No Has the patient ever had any past reaction to a flu shot?: No Immunizations flu vacc [id number] 6mos up(PF) 60 mcg(15 mcgx4)/0.5 mL IM syringe Performing Provider: Jaz Myers MD [facility] Administered by: GABINO Peck on 02/08/23 15:28 Dose Route Admin Location Dispensed Lot Number Expiration Date NDC Patient Care Assistant 0.5 mL IM Left Deltoid 0.5 mL [id number] 11/07/23 41036-048-91 [employer] VIS Given Date VIS Provided VIS Publication Date 02/08/23 Single Vaccine 20 Eligibility Eligibility Date Funding Source Not [facility] Eligible 02/08/23 Private Assessment and Plan Assessment & Plan (1) Impaired glucose tolerance: Code(s): R73.02 - Impaired glucose tolerance (oral) Plan: Decrease the amount of carbohydrate intake, pasta, bread, rice and potatoes are all sugar and that is aside from all the sweet stuff, remember that fruits are good but they are Sweet also. Hemoglobin A1c 5.8 patient is on steroids chronic (2) DVT (deep venous thrombosis): Comment: 2014 protein S def Code(s): I82.409 - Acute embolism and thrombosis of unspecified deep veins of unspecified lower extremity Plan: Continue with anticoagulation follows up with hematology oncology has protein S deficiency (3) Protein S deficiency: Code(s): D68.59 - Other primary thrombophilia Plan: On anticoagulation (4) Sarcoidosis: Comment: dx 2011-follows w/Dr. Da Silva ([facility] [place]) Code(s): D86.9 - Sarcoidosis, unspecified Plan: Patient follows up with Pulmonary. Continuing on prednisone and mycophenolic acid (5) Hypercholesterolemia: Code(s): E78.00 - Pure hypercholesterolemia, unspecified Plan: Avoid fried foods, chicken skin, eggs, butter margarine, pastries and meat. Be it pork or beef they have a lot of cholesterol, November blood work showing an elevated triglyceride (6) BPH (benign prostatic hyperplasia): Code(s): N40.0 - Benign prostatic hyperplasia without lower urinary tract symptoms Qualifiers: Lower urinary tract symptom presence: symptoms present Lower urinary tract symptom detail: urinary frequency Qualified Code(s): N40.1 - Benign prostatic hyperplasia with lower urinary tract symptoms; R35.0 - Frequency of micturition (7) Fatty liver: Code(s): K76.0 - Fatty (change of) liver, not elsewhere classified Plan: Low-fat diet and exercise Orders: Orders Influenza [id number] Immunization Today Z23 - Encounter for immunization Coding Level of Care Code Est Pt Level 4 (38542) Diagnoses Impaired glucose tolerance R73.02 DVT (deep venous thrombosis) I82.409 Protein S deficiency D68.59 Sarcoidosis D86.9 Hypercholesterolemia E78.00 Benign prostatic hyperplasia with urinary frequency N40.1; R35.0 Lower urinary tract symptom presence: symptoms present Lower urinary tract symptom detail: urinary frequency Fatty liver K76.0
== END 2023-02-08 16:32 | disposition home or self-care (01) ==
PROVIDERS: PCP Internal Medicine; Visit Provider Internal Medicine
DX: R73.02 Impaired glucose tolerance (oral) (principal); I82.409 Acute embolism and thrombosis of unspecified deep veins of unspecified lower extremity; D68.59 Other primary thrombophilia; Z79.01 Long term (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 of anticoagulants; Z23 Encounter for immunization; D86.9 Sarcoidosis, unspecified; E78.00 Pure hypercholesterolemia, unspecified; N40.1 Benign prostatic hyperplasia with lower urinary tract symptoms; R35.0 Frequency of micturition; K76.0 Fatty (change of) liver, not elsewhere classified
CPT/HCPCS: 90471; 90686; 99214

== ENCOUNTER 2023-02-19 08:10 | Outpatient (AMB) | payer OTHER, SELFPAY ==
[2023-02-19 08:27] LABS: Prothrombin Time Whole Bld POC 31.8 sec (11.1-13.5); ~PT, ~INR - Anti Coag Clinic 2.6 (0.9-1.1)
--- NOTE | 2023-02-19 08:30 | MHC.OFFVISCO ---
Intake Intake Visit Reasons: Anticoagulation Allergies No Known Allergies [No Known Allergies*] Allergy (Verified 02/19/23 08:20) Medication List - Last Reconciled 02/19/23 by Marcia Dave RN benzonatate 200 mg PO BID PRN 30 days clotrimazole 1% 1 appl topical BID 4 weeks miconazole nitrate 2% (Zeasorb AF) 1 appl topical BID mycophenolate mofetil 1,000 mg (2 x 500 mg) PO BID 30 days prednisolone acetate 1% (Pred Forte) 1 drp ophthalmic (eye) BEDTIME prednisone 7.5 mg PO BEDTIME warfarin (Jantoven) 4 mg See Protocol PO BEDTIME Nursing Note INR: 2.6 in therapeutic range Medications and supplements reviewed Pt has a resp/breathing condition being followed by Dr Lawson, he is suppose to use a resp exercise apparatus and has not come in yet, he was enc to stop by his office to check on it Denies any signs and symptoms of bleeding or bruising or clotting. 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
== END 2023-02-19 08:33 | disposition home or self-care (01) ==
LOC: HO.ACS 08:10
PROVIDERS: PCP Internal Medicine; Visit Provider Internal Medicine
DX: Z79.01 Long term (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 of anticoagulants (principal)

== ENCOUNTER → 2023-02-19 08:10 | Outpatient (BNVA) | payer OTHER, SELFPAY | PROVIDERS: PCP Internal Medicine; Visit Provider Internal Medicine | DX: I82.402 Acute embolism and thrombosis of unspecified deep veins of left lower extremity (principal); Z79.01 Long term (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 of anticoagulants; Z51.81 Encounter for therapeutic drug level monitoring | CPT/HCPCS: 85610; 99211 ==

== ENCOUNTER 2023-03-05 07:59 | Outpatient (AMB) | payer OTHER, SELFPAY ==
[2023-03-05 08:05] LABS: Prothrombin Time Whole Bld POC 33.5 sec (11.1-13.5); ~PT, ~INR - Anti Coag Clinic 2.8 (0.9-1.1)
--- NOTE | 2023-03-05 08:05 | MHC.OFFVISCO ---
Intake Intake Visit Reasons: Anticoagulation Allergies No Known Allergies [No Known Allergies*] Allergy (Verified 03/05/23 07:59) Medication List - Last Reconciled 03/05/23 by Marcia Dave RN benzonatate 200 mg PO BID PRN 30 days clotrimazole 1% 1 appl topical BID 4 weeks miconazole nitrate 2% (Zeasorb AF) 1 appl topical BID mycophenolate mofetil 1,000 mg (2 x 500 mg) PO BID 30 days prednisolone acetate 1% (Pred Forte) 1 drp ophthalmic (eye) BEDTIME prednisone 7.5 mg PO BEDTIME warfarin (Jantoven) 4 mg See Protocol PO BEDTIME Nursing Note INR: 2.8 in therapeutic range Medications and supplements reviewed No changes in health, diet, medications, or supplements, Denies any signs and symptoms of bleeding or bruising or clotting. Bleeding, bruising, clotting discussed Nutritional guidance given Dose: 6mg x 1 day/ 4mg x 6 days F/U INR: 3 weeks Patient verbalizes understanding of instructions given Anti-Coag Initial Assessment Social Hx Patient Tobacco Use Status: Never used Tobacco alcohol intake: current Alcohol intake frequency: holidays/special occasions only Coding Level of Care Code Est Patient Level 1 Diagnoses Current use of anticoagulant therapy Z79.01 Assessment & Plan Assessment & Plan (1) Current use of anticoagulant therapy: Code(s): Z79.01 - prison (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
== END 2023-03-05 08:12 | disposition home or self-care (01) ==
LOC: HO.ACS 07:59
PROVIDERS: PCP Internal Medicine; Visit Provider Internal Medicine
DX: Z79.01 Long term (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 of anticoagulants (principal)

== ENCOUNTER → 2023-03-05 07:59 | Outpatient (BNVA) | payer OTHER, SELFPAY | PROVIDERS: PCP Internal Medicine; Visit Provider Internal Medicine | DX: I82.402 Acute embolism and thrombosis of unspecified deep veins of left lower extremity (principal); Z79.01 Long term (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 of anticoagulants; Z51.81 Encounter for therapeutic drug level monitoring | CPT/HCPCS: 85610; 99211 ==

== ENCOUNTER 2023-03-26 08:01 | Outpatient (AMB) | payer OTHER, SELFPAY ==
[2023-03-26 08:21] LABS: Prothrombin Time Whole Bld POC 27.9 sec (11.1-13.5); ~PT, ~INR - Anti Coag Clinic 2.3 (0.9-1.1)
--- NOTE | 2023-03-26 08:24 | MHC.OFFVISCO ---
Intake Intake Visit Reasons: Anticoagulation Allergies No Known Allergies [No Known Allergies*] Allergy (Verified 03/26/23 08:17) Medication List - Last Reconciled 03/26/23 by Mami Sharp RN benzonatate 200 mg PO BID PRN 30 days clotrimazole 1% 1 appl topical BID 4 weeks miconazole nitrate 2% (Zeasorb AF) 1 appl topical BID mycophenolate mofetil 1,000 mg (2 x 500 mg) PO BID 30 days prednisolone acetate 1% (Pred Forte) 1 drp ophthalmic (eye) BEDTIME prednisone 7.5 mg PO BEDTIME warfarin (Jantoven) 4 mg See Protocol PO BEDTIME Nursing Note Amb to ACS feeling well, has chronic cough, see pulm Medications and supplements reviewed No changes in health, diet, medications, or supplements Denies any unusual signs and symptoms of bruising, bleeding Denies any new Chest pain, SOB, or clotting INR: 2.3 in therapeutic range Nutritional guidance given: balance greens and reds in diet Dose: continue usual dosing;6mg x 1 day and 4mg x 6 days F/U INR: 3 weeks Patient verbalizes understanding of instructions given with accurate read back/ teach back of dosing Anti-Coag Initial Assessment Social Hx Patient Tobacco Use Status: Never used Tobacco alcohol intake: current Alcohol intake frequency: holidays/special occasions only Questionnaires HAS-BLED Does the patient had uncontrolled Hypertension?: No Does the patient have renal disease?: No Does the patient have liver disease?: No Does the patient have a history of stroke?: No Has the patient had major bleeding or predisposition to bleeding?: Yes Does the patient have labile INRs?: No Is the patient over 65 years of age?: No Is the patient on medications that gives them a predisposition to bleeding?: Yes Does the patient use alcohol?: Yes HAS-BLED Score: 3 CHADSVASC Age: <65 Gender: Male Does the patient have a history of CHF?: No Does the patient have a history of Hypertension?: No Does the patient have a history of Stroke/TIA/Thromboembolism?: Yes Does the patient have a history of Vascular Disease (prior NE, PAD or aortic plaque)?: No Does the patient have a history of Diabetes?: No CHADS VACS Score: 2 Olya Prediction Score Rsk VTE Active Cancer: No Previous VTE, excluding superficial vein thrombosis: Yes Reduced mobility: No Already known Thrombophilic Condition: Yes With-in last month Trauma and/or Surgery: No Elderly 70 year or older: No Heart and/or Respiratory Failure: No Acute Myocardial infarction and/or Ischemic Stroke: No Acute Infection and/or Rheumatologic Disorder: Yes Obesity (BMI 30 or greater): No Ongoing Hormonal Treatment: No Score: 7 Olya Score less than 4; Low Risk of VTE Olya Score 4 or greater; High Risk of VTE Coding Level of Care Code Est Patient Level 1 Diagnoses Current use of anticoagulant therapy Z79.01 Time Spent (min) 15 Assessment & Plan Assessment & Plan (1) Current use of anticoagulant therapy: Code(s): Z79.01 - longterm (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
== END 2023-03-26 08:29 | disposition home or self-care (01) ==
LOC: HO.ACS 08:01
PROVIDERS: PCP Internal Medicine; Visit Provider Internal Medicine
DX: Z79.01 Long term (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 of anticoagulants (principal)

== ENCOUNTER → 2023-03-26 08:01 | Outpatient (BNVA) | payer OTHER, SELFPAY | PROVIDERS: PCP Internal Medicine; Visit Provider Internal Medicine | DX: I82.402 Acute embolism and thrombosis of unspecified deep veins of left lower extremity (principal); Z79.01 Long term (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 of anticoagulants; Z51.81 Encounter for therapeutic drug level monitoring | CPT/HCPCS: 85610; 99211 ==

== ENCOUNTER 2023-03-26 08:46 | Outpatient (REF) | payer OTHER, SELFPAY | END 2023-03-26 08:47 | disposition home or self-care (01) | LOC: HO.LNP 08:46 | PROVIDERS: Visit Provider Hospitalist | DX: R05.9 Cough, unspecified (principal) | CPT/HCPCS: 87070; 87205 ==

== ENCOUNTER 2023-04-06 14:47 | Outpatient (AMB) | payer OTHER, SELFPAY ==
[2023-04-06 14:55] VITALS: BP 142/84; PULSE 72; O2SAT 93; BMI 28.3
--- NOTE | 2023-04-06 14:55 | MHC.PC.OV ---
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: No Accompanied by: Self / Same As Patient Allergies No Known Allergies [No Known Allergies*] Allergy (Verified 04/06/23 14:55) Medication List - Last Reconciled 04/06/23 by Jaz Myers MD benzonatate 200 mg PO BID PRN 30 days clotrimazole 1% 1 appl topical BID 4 weeks miconazole nitrate 2% (Zeasorb AF) 1 appl topical BID mycophenolate mofetil 1,000 mg (2 x 500 mg) PO BID 30 days prednisolone acetate 1% (Pred Forte) 1 drp ophthalmic (eye) BEDTIME prednisone 7.5 mg PO BEDTIME warfarin (Jantoven) 4 mg See Protocol PO BEDTIME Tobacco use date assessed: 02/08/23 Dental Screening Dental Screen Date: 04/06/23 Did you have a dental visit in the last 12 months?: Yes Did you have a dental problem in the last 6 months where you did not have access to dental care?: No Was dental information given to patient?: Patient has dentist HPI PE HPI Details 57-year-old overweight male with a history of impaired glucose tolerance DVT with protein S deficiency on anticoagulation sarcoidosis hypercholesterolemia BPH fatty liver last seen in February 2023. Patient is here for physical exam. As for colonoscopy April 2021 3 years up-to-date [facility] Medical History (Updated 04/06/23 @ 15:48 by Jaz Myers MD) Bronchomalacia Right inguinal hernia Sarcoidosis Pulmonary nodules Obesity (BMI 30.0-34.9) Bleeding hemorrhoids Leg pain, right LFT elevation Hyperkalemia Glaucoma BPH (benign prostatic hyperplasia) Vitamin D deficiency Hypercholesterolemia Protein S deficiency DVT (deep venous thrombosis) Thrombocytopenia Surgical History History of right inguinal hernia repair Hx of lymph node biopsy Hx of colonoscopy History of umbilical hernia repair History of appendectomy History of sinus surgery Family History Mother No problems noted. Father Medical history unknown Daughter In good health Sister In good health Brother Lung cancer Social History (Updated 04/06/23 @ 15:34 by Jaz Myers MD) Household Members: Significant Other Housing: House Are you a primary senior care provider to a significant other at home: No Do you presently have visiting nurse or other home services: No Alcohol intake: current Alcohol intake frequency: holidays/special occasions only Comment: 3x a year 2 drinks Patient Tobacco Use Status: Never used Tobacco e-Cigarette/Vaping Use: Never Used Second Hand Smoke Exposure: No service: No Current occupational status: employed Cognitive needs: No Hearing needs: No Vision needs: Yes Questionnaire Thrive Questionnaire Date Thrive assessed: 08/21/22 SANDRA-7 AMB Questionnaire SANDRA-7 Date SANDRA - 7 assessed: 08/21/22 Source: Developed by Drs. Mason Burton, Irma Morales, Waldemar Mchugh and colleagues, with an educational dc from [employer]. Review of Systems Const Denies poor appetite and Denies weakness Eyes Denies no additional complaints ENT Reports Normal hearing present, Denies dizziness, Denies nasal congestion, Denies tinnitus and Denies sore throat Card Denies chest pain, Denies syncope, Denies rapid heart rate and Denies dyspnea Resp Denies cough and Denies dyspnea GI Denies change in stool character, Reports constipation, Denies diarrhea, Denies nausea and Denies vomiting Denies dysuria and Denies urinary frequency Neuro Reports Normal hearing present, Denies confusion, Denies dizziness, Denies syncope and Denies weakness Psych Denies confusion Physical exam (Primary Care) Vital Signs: Last Vital Signs Pulse 72 04/06/23 14:55 BP 124/70 04/06/23 15:32 Pulse Ox 93 04/06/23 14:55 Oxygen Delivery Method Room Air 04/06/23 14:55 BMI result Body Mass Index 28.3 Tobacco/Smoking Status: Tobacco use Status Tobacco use date assessed 02/08/23 04/06/23 14:59 Patient Tobacco Use Status Never used Tobacco 04/06/23 15:34 e-Cigarette/Vaping Use Never Used 04/06/23 15:34 Thrive Assessment: Date of Thrive Assessment Date Thrive assessed 08/21/22 04/06/23 14:59 Const General: No confusion Orientation/consciousness: No confusion HENMT Head: Yes normocephalic Ears: external ears normal and TM's normal bilaterally Face and sinus: Yes normal facial exam Mouth: moist mucous membranes Throat: Yes tonsils normal Eyes Conjunctivae: conjunctivae normal Pupils: Equal, round and reactive pupils present and Pupil accommodation reflex normal Direct Ophthalmoscopy: normal light reflex Neck Neck: No lymphadenopathy Thyroid: Thyroid normal Chest Chest palpation & inspection: normal inspection of the chest Resp Effort & Inspection: normal respiratory effort and no audible wheezes Auscultation: clear to auscultation bilaterally, no crackles, no wheezes and lung sounds not diminished Cardio Rate: regular rate Rhythm: regular rhythm Peripheral pulses: radial pulses present and dorsalis pedis present GI Palpation (GI): no masses Auscultation: normal bowel sounds and normoactive bowel sounds Rectal Exam - Male: Yes deferred Skin General skin exam: no rashes or lesions noted Rashes: no rashes Neuro General: No confusion Cranial nerves: Yes Equal, round and reactive pupils present and Yes Normal hearing present Cognition (Neuro): normal cognition Gait exam (Neuro): Normal gait present Motor exam (neuro): 5/5 motor strength present throughout Deep tendon reflexes (DTR's): Right brachioradialis reflex intensity grade: 2+, Left brachioradialis reflex intensity grade: 2+, Right patellar reflex intensity grade: 2+ and Left patellar reflex intensity grade: 2+ Extrem General: No edema Immunizations pneumoc 20-lorie conj-dip cr(PF) 0.5 mL IM syringe Performing Provider: Jaz Myers MD Performing Location: [facility] Administered by: Kari Ennis CMA on 04/06/23 16:00 Dose Route Admin Location Dispensed Lot Number Expiration Date NDC Atv Mechanic 0.5 mL IM Left Deltoid 0.5 mL [id number] 11/08/23 4303-3691-99 [employer] VIS Given Date VIS Provided VIS Publication Date 04/06/23 Single Vaccine 21 Eligibility Eligibility Date Funding Source Not [facility] Eligible 04/06/23 Private Assessment and Plan Assessment & Plan (1) Annual physical exam: Code(s): Z00.00 - Encounter for general adult medical examination without abnormal findings (2) Overweight (BMI 25.0-29.9): Code(s): E66.3 - Overweight Plan: Diet and exercise (3) Hypercholesterolemia: Code(s): E78.00 - Pure hypercholesterolemia, unspecified Plan: Avoid fried foods, chicken skin, eggs, butter margarine, pastries and meat. Be it pork or beef they have a lot of cholesterol LDL goal of less than 130 and triglyceride of less than 150 (4) Protein S deficiency: Code(s): D68.59 - Other primary thrombophilia Plan: Continue with anticoagulation. (5) Sarcoidosis: Comment: dx 2012-follows w/Dr. Da Silva ([facility] [place]) Code(s): D86.9 - Sarcoidosis, unspecified Plan: Continue to follow-up with Pulmonary (6) Fatty liver: Code(s): K76.0 - Fatty (change of) liver, not elsewhere classified Plan: Low-fat diet (7) Impaired glucose tolerance: Code(s): R73.02 - Impaired glucose tolerance (oral) Plan: Decrease the amount of carbohydrate intake, pasta, bread, rice and potatoes are all sugar and that is aside from all the sweet stuff, remember that fruits are good but they are Sweet also. (8) Frequency of micturition: Code(s): R35.0 - Frequency of micturition (9) Renal calculi: Code(s): N20.0 - Calculus of kidney (10) Eczema: Code(s): L30.9 - Dermatitis, unspecified Orders: Orders US renal BI Today N20.0 - Calculus of kidney Hemoglobin A1c Today E78.00 - Pure hypercholesterolemia, unspecified Comprehensive Met. Panel Today E78.00 - Pure hypercholesterolemia, unspecified Complete Blood Count Auto Diff Today E78.00 - Pure hypercholesterolemia, unspecified Lipid Panel Today E78.00 - Pure hypercholesterolemia, unspecified Thyroid Stimulating Hormone Today E78.00 - Pure hypercholesterolemia, unspecified Free T4 (Free Thyroxine) Today E78.00 - Pure hypercholesterolemia, unspecified US bladder Today R35.0 - Frequency of micturition Medications: New triamcinolone acetonide 0.5% 1 appl topical DAILY 30 grams 0RF L30.9 - Dermatitis, unspecified Coding Level of Care Code Est Pt Prev Care 40-64y(21424) Diagnoses Annual physical exam Z00.00 Overweight (BMI 25.0-29.9) E66.3 Hypercholesterolemia E78.00 Protein S deficiency D68.59 Sarcoidosis D86.9 Fatty liver K76.0 Impaired glucose tolerance R73.02 Frequency of micturition R35.0 Renal calculi N20.0 Eczema L30.9
[2023-04-06 15:32] VITALS: BP 124/70
== END 2023-04-06 16:06 | disposition home or self-care (01) ==
PROVIDERS: Visit Provider Internal Medicine
DX: Z00.00 Encounter for general adult medical examination without abnormal findings (principal); D68.59 Other primary thrombophilia; E66.3 Overweight; Z23 Encounter for immunization; E78.00 Pure hypercholesterolemia, unspecified; D86.9 Sarcoidosis, unspecified; K76.0 Fatty (change of) liver, not elsewhere classified; R73.02 Impaired glucose tolerance (oral); R35.0 Frequency of micturition; N20.0 Calculus of kidney; L30.9 Dermatitis, unspecified
CPT/HCPCS: 90471; 90677; 99396

== ENCOUNTER 2023-04-16 08:02 | Outpatient (AMB) | payer OTHER, SELFPAY ==
--- NOTE | 2023-04-16 08:08 | MHC.OFFVISCO ---
Intake Intake Visit Reasons: Anticoagulation Allergies No Known Allergies [No Known Allergies*] Allergy (Verified 04/16/23 08:03) Medication List - Last Reconciled 04/16/23 by Robyn Ulloa RN benzonatate 200 mg PO BID PRN 30 days clotrimazole 1% 1 appl topical BID 4 weeks miconazole nitrate 2% (Zeasorb AF) 1 appl topical BID mycophenolate mofetil 1,000 mg (2 x 500 mg) PO BID 30 days prednisolone acetate 1% (Pred Forte) 1 drp ophthalmic (eye) BEDTIME prednisone 7.5 mg PO BEDTIME triamcinolone acetonide 0.5% 1 appl topical DAILY warfarin (Jantoven) 4 mg See Protocol PO BEDTIME Nursing Note INR: 2.2- in therapeutic range of 2-3 Medications and supplements reviewed- no changes No changes in health, diet, medications, or supplements, Denies any signs and symptoms of bleeding or bruising or clotting. Bleeding, bruising, clotting discussed Nutritional guidance given Dose: 6mg x 1, 4mg x 6 F/U INR: 3 weeks' Patient verbalizes understanding of instructions given Anti-Coag Initial Assessment Social Hx Patient Tobacco Use Status: Never used Tobacco alcohol intake: current Alcohol intake frequency: holidays/special occasions only Coding Level of Care Code Est Patient Level 1 Diagnoses Current use of anticoagulant therapy Z79.01 Results AMB INR Fingerstick AMB INR Fingerstick 2.2 Last Edit by Robyn Ulloa RN on 04/16/23 08:10 Assessment & Plan Assessment & Plan (1) Current use of anticoagulant therapy: Code(s): Z79.01 - 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
[2023-04-16 08:09] LABS: Prothrombin Time Whole Bld POC 26.1 sec (11.1-13.5); ~PT, ~INR - Anti Coag Clinic 2.2 (0.9-1.1)
== END 2023-04-16 08:13 | disposition home or self-care (01) ==
LOC: HO.ACS 08:02
PROVIDERS: PCP Internal Medicine; Visit Provider Internal Medicine
DX: Z79.01 Long term (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 of anticoagulants (principal)

== ENCOUNTER → 2023-04-16 08:02 | Outpatient (BNVA) | payer OTHER, SELFPAY | PROVIDERS: PCP Internal Medicine; Visit Provider Internal Medicine | DX: I82.402 Acute embolism and thrombosis of unspecified deep veins of left lower extremity (principal); Z79.01 Long term (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 of anticoagulants; Z51.81 Encounter for therapeutic drug level monitoring | CPT/HCPCS: 85610; 99211 ==

== ENCOUNTER 2023-04-29 16:03 | Outpatient (REF) | payer OTHER, SELFPAY ==
--- NOTE | ~2023-04-29 | US_ITS ---
EXAMINATION: US RETROPERITONEAL COMPLETE (RENAL) CLINICAL INFORMATION: Calculus of kidney. COMPARISON: Ultrasound abdomen complete 04/09/2021. Ultrasound bladder 11/01/2019. TECHNIQUE: Real-time imaging of the kidneys and bladder. FINDINGS: RIGHT KIDNEY: 10.3 x 5.6 x 4.9 cm (SAG x AP x TRV). The kidney is normal in size, contour, and echogenicity. Renal cortical thickness is normal. No calculi or focal parenchymal lesions. No hydronephrosis. LEFT KIDNEY: 9.1 x 4.8 x 4.4 cm (SAG x AP x TRV). The kidney is normal in size, contour, and echogenicity. Renal cortical thickness is normal. No calculi or focal parenchymal lesions. No hydronephrosis. BLADDER: Well distended and normal. Bilateral ureteral jets are demonstrated. Prevoid bladder volume is 308 mL. Postvoid bladder volume is 83.6 mL. ADDITIONAL FINDINGS: The prostate is enlarged, measuring approximately 83.5 mL. US/US retroperitoneal comp IMPRESSION: 1. Normal appearance of the kidneys. 2. Moderate to large post void residual. 3. Large prostate.
== END 2023-04-29 16:04 | disposition home or self-care (01) ==
LOC: HO.US 16:03
PROVIDERS: PCP Internal Medicine; Visit Provider Internal Medicine
DX: N20.0 Calculus of kidney (principal)
CPT/HCPCS: 76770

== ENCOUNTER 2023-05-06 15:21 | Outpatient (AMB) | payer OTHER, SELFPAY ==
[2023-05-06 15:21] VITALS: BMI 26.6
--- NOTE | 2023-05-06 15:21 | MHC.OFFVIS ---
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 At that point he also had a rash on the face. The patient was noted to have lupus pernio. He did have a biopsy-proven sarcoidosis. The patient did have a CT scan of the chest demonstrating pulmonary nodules and also lymphadenopathy. Although the diagnosis of sarcoid was made based on the skin biopsy. I do not have those results is all per the patient. The patient then was followed by a local movie projectionist. He was placed on prednisone. Ultimately more recently than that the patient start having worsening shortness of breath and cough. Was then placed on methotrexate up to 8 tablets of the 2.5 mg weekly. However after he started the methotrexate he has been noticing worsening cough and shortness of breath. He did have a recent chest x-ray done at the [facility] which I personally reviewed. It appears that he has a chronically elevated right hemidiaphragm but now appears to have more hazy opacities bilaterally suggesting pneumonitis. I did compare that to his previous x-ray from October which she did not have the degree of pneumonitis as he has now. Therefore I am concerned that he is having some adverse effects of the methotrexate. Assess as far as I know the only involvement of the sarcoid has been his lungs his skin and also the uveitis. 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 It is likely that the thrombotic issues are also related to sarcoidosis. He denies any other involvement of any other end-organ. We did review his blood work his total bili is a little elevated and he has had issues with liver in the past. But is hard to know for sure if is related to sarcoid any other etiology. The patient complains that his cough is very significant. He had call the on-call physician was given Tessalsommer Kraus without any significant improvement. For now while we deal with his active sarcoid issue go ahead and give her some codeine cough syrup patient does use state Travis often at nighttime to make sure that he can stop coughing. 08/03/2022 the patient is here for a pulmonary follow-up visit. He still the same. He still complains of cough and some chest congestion. The mucus is yellowish and whitish in color. [id number] severity. Did have worse at nighttime. The patient did switch over to mycophenolate from methotrexate. Seems to be tolerating it although still low dose of 100 mg twice a day. Was able to cut down the prednisone from 20 mg to 10 mg which is reassuring. Will continue to optimize his sarcoid therapy by increasing the mycophenolate to 1000 mg twice a day and also decreasing the prednisone some 0.5 mg. He also will going to go very slowly to make sure that he is able to decrease her dose effectively. We did review his CT scan of the chest demonstrating significant interstitial lung disease and pulmonary nodules when compared to his CT scan from 2014. He also had pulmonary function studies demonstrating a moderate restrictive ventilatory defect. In part he does have an elevated right hemidiaphragm that is resulting in diminished lung capacity. At this point will continue to maintain him on therapy to make sure that he does not have any progression of the scarring if is due to the sarcoidosis. 11/06/2022 the patient is here for a pulmonary follow-up visit. He continues with his ongoing chest congestion and cough. Moderate severity. Worse at nighttime. Has not responded to the respiratory therapy or the immunosuppressive therapy. He does bring up chest congestion although have been able to get a culture. We did review his CT scan of the chest. The patient does have normal findings. Based on his ongoing cough and his lack of response to his current therapy will plan to perform bronchoscopy. He does have pertinent S deficiency with hypercoagulable state and currently on Coumadin. I will be working with the Coumadin clinic in order to get him ready for the procedure. 01/29/2023 the patient is here for apulmonary follow up visit. Complaining that the cough is no better. Moderate in severity. Patient did have significant evidence of bronchomalacia. This is likely contributing to his significant cough. He also had moderate mucoid secretions that were suction. Patient is cultures were all negative. His endobronchial biopsies were negative for any sarcoidosis. Unfortunate patient continues to cough. Explained to him that the issue is the collapsing of the airways. At this point will start him on CPT with the Acapella valve to help him clear secretions. The patient will continue with current respiratory therapy. He will start cough suppressant. 05/06/2023 the patient has a telehealth visit today. He has not recovering from a viral syndrome on home. He is feeling better. He continues on the prednisone 7.5 mg daily and also continues on the mycophenolate. Seems to be tolerating therapy well and his blood sugars have been okay. In regards of his respiratory symptoms he has been coughing a little more secondary to the viral syndrome her [id number] severity. Otherwise feels well he does need any additional therapies at this time. Will plan to repeat his CT scan in 3 months' time year from his last 1 to see the progression of his underlying nodular densities and interstitial lung disease. [facility] Medical History (Updated 05/05/23 @ 18:30 by Jaz Myers MD) Bronchomalacia Right inguinal hernia Sarcoidosis Pulmonary nodules Obesity (BMI 30.0-34.9) Bleeding hemorrhoids Leg pain, right LFT elevation Hyperkalemia Glaucoma BPH (benign prostatic hyperplasia) Vitamin D deficiency Hypercholesterolemia Protein S deficiency DVT (deep venous thrombosis) Thrombocytopenia Surgical History History of right inguinal hernia repair Hx of lymph node biopsy Hx of colonoscopy History of umbilical hernia repair History of appendectomy History of sinus surgery Family History Mother No problems noted. Father Medical history unknown Daughter In good health Sister In good health Brother Lung cancer Social History (Updated 04/06/23 @ 15:34 by Jaz Myers MD) Household Members: Significant Other Housing: House Are you a primary resident care manager rn to a significant other at home: No Do you presently have visiting nurse or other home services: No Alcohol intake: current Alcohol intake frequency: holidays/special occasions only Comment: 3x a year 2 drinks Patient Tobacco Use Status: Never used Tobacco e-Cigarette/Vaping Use: Never Used Second Hand Smoke Exposure: No service: No Current occupational status: employed Cognitive needs: No Hearing needs: No Vision needs: Yes Review of Systems Const Denies body aches and Denies fever(s) Eyes Denies change in vision ENT Denies change in voice Card Denies chest pain and Reports dyspnea on exertion Resp Reports chest congestion, Reports cough, Denies hemoptysis, Reports dyspnea on exertion and Denies wheezing GI Denies no additional complaints Musc Reports no additional complaints Skin/Breast Denies new lesions and Reports rash Neuro Reports no additional complaints Endo Denies flushing Sina/Lymph Denies easy bruising and Denies lymphadenopathy Aller/Immun Denies wheezing Physical Exam Vital Signs: BMI result Body Mass Index 26.6 Const Orientation/consciousness: patient oriented x3 Resp Effort & Inspection: normal respiratory effort and able to speak in complete sentences Neuro General: patient oriented x3 Assessment & Plan Assessment & Plan (1) Sarcoid: Comment: 2011 Code(s): D86.9 - Sarcoidosis, unspecified (2) Pulmonary nodules: Code(s): R91.8 - Other nonspecific abnormal finding of lung field (3) Pneumonitis: Code(s): J18.9 - Pneumonia, unspecified organism (4) Cough: Code(s): R05.9 - Cough, unspecified Qualifiers: Cough type: chronic Qualified Code(s): R05.3 - Chronic cough (5) care home systemic steroid user: Code(s): Z79.52 - 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 Da Silva ([facility] [place]) Code(s): D86.9 - Sarcoidosis, unspecified Plan continue Prednisone 7.5mg daily continue Mycophenalate 500mg BID, will need to monitor LFTs CPT with acapella valve repeat CT chest in 3 months F/U 3-4 months Orders: Orders CT chest wo IV con 3 Months R91.8 - Other nonspecific abnormal finding of lung field Telehealth Telehealth Location of provider rendering services: practice address Location of patient: address on file Patient Identification confirmed using: Name, : Yes Telehealth method: voice only Patient verbally consented to treatment: Yes Patient verbally consented to billing insurance company: Yes Patient informed of any privacy concerns related to visit: Yes Coding Level of Care Code Tele Est Pt Level 4 (95189) Diagnoses Sarcoid D86.9 Pulmonary nodules R91.8 Pneumonitis J18.9 Chronic cough R05.3 Cough type: chronic care home systemic steroid user Z79.52 Bronchomalacia J98.09 Time Spent (min) 15
== END 2023-05-06 16:05 | disposition home or self-care (01) ==
LOC: HO.HPS 15:21
PROVIDERS: PCP Internal Medicine; Visit Provider Hospitalist
DX: D86.9 Sarcoidosis, unspecified (principal); R91.8 Other nonspecific abnormal finding of lung field; J18.9 Pneumonia, unspecified organism; R05.3 Chronic cough; Z79.52 Long term (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 of systemic steroids; J98.09 Other diseases of bronchus, not elsewhere classified
CPT/HCPCS: 99214

== ENCOUNTER → 2023-05-06 15:21 | Outpatient (BNVA) | payer OTHER, SELFPAY | PROVIDERS: PCP Internal Medicine; Visit Provider Hospitalist | DX: J98.09 Other diseases of bronchus, not elsewhere classified (principal); D86.9 Sarcoidosis, unspecified ==

== ENCOUNTER 2023-05-07 07:56 | Outpatient (AMB) | payer OTHER, SELFPAY ==
[2023-05-07 08:20] LABS: Prothrombin Time Whole Bld POC 24.9 sec (11.1-13.5); ~PT, ~INR - Anti Coag Clinic 2.1 (0.9-1.1)
--- NOTE | 2023-05-07 08:22 | MHC.OFFVISCO ---
Intake Intake Visit Reasons: Anticoagulation Allergies No Known Allergies [No Known Allergies*] Allergy (Verified 05/07/23 08:15) Medication List - Last Reconciled 05/07/23 by Mami Sharp, RN clotrimazole 1% 1 appl topical BID 4 weeks miconazole nitrate 2% (Zeasorb AF) 1 appl topical BID mycophenolate mofetil 1,000 mg (2 x 500 mg) PO BID 30 days prednisolone acetate 1% (Pred Forte) 1 drp ophthalmic (eye) BEDTIME prednisone 7.5 mg PO BEDTIME tamsulosin 0.4 mg PO BEDTIME triamcinolone acetonide 0.5% 1 appl topical DAILY warfarin (Jantoven) 4 mg See Protocol PO BEDTIME Nursing Note Amb to [facility] feeling ok, has lingering cough from a cold Medications and supplements reviewed No changes in health, diet, medications, or supplements Denies any unusual signs and symptoms of bruising, bleeding Denies any new Chest pain, SOB, or clotting INR: 2.1 in therapeutic range Nutritional guidance given: no heavy duty greens today then balance greens and reds in diet, be consistent Dose: continue usual dosing;6mg x 1 day and 4 mg x 6 days F/U INR: 3 weeks Patient verbalizes understanding of instructions given with accurate read back/ teach back of dosing Anti-Coag Initial Assessment Social Hx Patient Tobacco Use Status: Never used Tobacco alcohol intake: current Alcohol intake frequency: holidays/special occasions only Coding Level of Care Code Est Patient Level 1 Diagnoses Current use of anticoagulant therapy Z79.01 Time Spent (min) 15 Assessment & Plan Assessment & Plan (1) Current use of anticoagulant therapy: 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
== END 2023-05-07 08:28 | disposition home or self-care (01) ==
LOC: HO.ACS 07:56
PROVIDERS: PCP Internal Medicine; Visit Provider Internal Medicine
DX: Z79.01 Long term (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 of anticoagulants (principal)

== ENCOUNTER → 2023-05-07 07:56 | Outpatient (BNVA) | payer OTHER, SELFPAY | PROVIDERS: PCP Internal Medicine; Visit Provider Internal Medicine | DX: I82.402 Acute embolism and thrombosis of unspecified deep veins of left lower extremity (principal); Z79.01 Long term (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 of anticoagulants; Z51.81 Encounter for therapeutic drug level monitoring | CPT/HCPCS: 85610; 99211 ==

== ENCOUNTER 2023-05-28 08:04 | Outpatient (AMB) | payer OTHER, SELFPAY ==
--- NOTE | 2023-05-28 08:23 | MHC.OFFVISCO ---
Intake Intake Visit Reasons: Anticoagulation Allergies No Known Allergies [No Known Allergies*] Allergy (Verified 05/28/23 08:05) Medication List - Last Reconciled 05/28/23 by Mami Springer RN clotrimazole 1% 1 appl topical BID 4 weeks miconazole nitrate 2% (Zeasorb AF) 1 appl topical BID mycophenolate mofetil 1,000 mg (2 x 500 mg) PO BID 30 days prednisolone acetate 1% (Pred Forte) 1 drp ophthalmic (eye) BEDTIME prednisone 7.5 mg PO BEDTIME tamsulosin 0.4 mg PO BEDTIME triamcinolone acetonide 0.5% 1 appl topical DAILY warfarin (Jantoven) 4 mg See Protocol PO BEDTIME Nursing Note INR 4.3 Pt has been sick with flu. Decreased appetite. Lost 20lbs. Has been taking tylenol. No other health changes. No bleeding or bruising. Instructed to take greens today. Only likes avocado and said he will have that today and green tea. Due next in 10 days. To skip todays dose. 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
[2023-05-28 08:37] LABS: Prothrombin Time Whole Bld POC 51.4 sec (11.1-13.5); ~PT, ~INR - Anti Coag Clinic 4.3 (0.9-1.1)
== END 2023-05-28 08:28 | disposition home or self-care (01) ==
LOC: HO.ACS 08:04
PROVIDERS: PCP Internal Medicine; Visit Provider Internal Medicine
DX: Z79.01 Long term (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 of anticoagulants (principal)

== ENCOUNTER → 2023-05-28 08:04 | Outpatient (BNVA) | payer OTHER, SELFPAY | PROVIDERS: PCP Internal Medicine; Visit Provider Internal Medicine | DX: I82.402 Acute embolism and thrombosis of unspecified deep veins of left lower extremity (principal); Z79.01 Long term (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 of anticoagulants; Z51.81 Encounter for therapeutic drug level monitoring | CPT/HCPCS: 85610; 99211 ==

== ENCOUNTER 2023-06-07 08:02 | Outpatient (AMB) | payer OTHER, SELFPAY ==
[2023-06-07 08:12] LABS: Prothrombin Time Whole Bld POC 36.8 sec (11.1-13.5); ~PT, ~INR - Anti Coag Clinic 3.1 (0.9-1.1)
--- NOTE | 2023-06-07 08:24 | MHC.OFFVISCO ---
Intake Intake Visit Reasons: Anticoagulation Allergies No Known Allergies [No Known Allergies*] Allergy (Verified 06/07/23 08:05) Medication List - Last Reconciled 06/07/23 by Mami Springer RN clotrimazole 1% 1 appl topical BID 4 weeks miconazole nitrate 2% (Zeasorb AF) 1 appl topical BID mycophenolate mofetil 1,000 mg (2 x 500 mg) PO BID 30 days prednisolone acetate 1% (Pred Forte) 1 drp ophthalmic (eye) BEDTIME prednisone 7.5 mg PO BEDTIME triamcinolone acetonide 0.5% 1 appl topical DAILY warfarin (Jantoven) 4 mg See Protocol PO BEDTIME Nursing Note PT TO [facility] STILL RECOVERING FROM URI WITH CHRONIC COUGH. NO CHANGES IN MEDICATIONS EXCEPT TAMSULOSIN STOPPED (NO EFFECT ON INR) NO SS/OF BLEEDING OR BRUISING OR CLOTTING. INR 3.1. KEEP SAME DOSE AND SEE IN 1 WEEK. ENCOURAGED WEEKLY GREENS AND HYDRATION. PT VERBALIZES UNDERSTANDING. 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
== END 2023-06-07 08:30 | disposition home or self-care (01) ==
LOC: HO.ACS 08:02
PROVIDERS: PCP Internal Medicine; Visit Provider Internal Medicine
DX: Z79.01 Long term (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 of anticoagulants (principal)

== ENCOUNTER → 2023-06-07 08:02 | Outpatient (BNVA) | payer OTHER, SELFPAY | PROVIDERS: PCP Internal Medicine; Visit Provider Internal Medicine | DX: I82.402 Acute embolism and thrombosis of unspecified deep veins of left lower extremity (principal); Z79.01 Long term (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 of anticoagulants; Z51.81 Encounter for therapeutic drug level monitoring | CPT/HCPCS: 85610; 99211 ==

== ENCOUNTER 2023-06-15 08:01 | Outpatient (AMB) | payer OTHER, SELFPAY ==
--- NOTE | 2023-06-15 08:19 | MHC.OFFVISCO ---
Intake Intake Visit Reasons: Anticoagulation Allergies No Known Allergies [No Known Allergies*] Allergy (Verified 06/15/23 08:05) Medication List - Last Reconciled 06/15/23 by Mami Springer RN clotrimazole 1% 1 appl topical BID 4 weeks miconazole nitrate 2% (Zeasorb AF) 1 appl topical BID mycophenolate mofetil 1,000 mg (2 x 500 mg) PO BID 30 days prednisolone acetate 1% (Pred Forte) 1 drp ophthalmic (eye) BEDTIME prednisone 7.5 mg PO BEDTIME triamcinolone acetonide 0.5% 1 appl topical DAILY warfarin (Jantoven) 4 mg See Protocol PO BEDTIME Nursing Note INR 3.3?? out of therapeutic range of 2-3 Medications and supplements reviewed Patient status: continues with cough and decreased appetite Medications or supplements: no changes Diet: decreased appetite Denies any signs and symptoms of bleeding or clotting or unusual bruising Bleeding, bruising, clotting discussed Nutritional guidance given: have greens to lower Dose: 2mg today then continue usual dose 4mg X6 and 6mg X1 F/U INR Date : 1 week?? Patient verbalizing understanding of instructions given. Anti-Coag Initial Assessment Social Hx Patient Tobacco Use Status: Never used Tobacco alcohol intake: current Alcohol intake frequency: holidays/special occasions only Coding Level of Care Code Est Patient Level 1 Diagnoses Current use of anticoagulant therapy Z79.01 Results AMB INR Fingerstick AMB INR Fingerstick 3.3 Last Edit by Mami Springer RN on 06/15/23 08:15 interface delay Assessment & Plan Assessment & Plan (1) Current use of anticoagulant therapy: Code(s): Z79.01 - [facility] (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
[2023-06-15 08:20] LABS: Prothrombin Time Whole Bld POC 39.5 sec (11.1-13.5); ~PT, ~INR - Anti Coag Clinic 3.3 (0.9-1.1)
== END 2023-06-15 08:21 | disposition home or self-care (01) ==
LOC: HO.ACS 08:01
PROVIDERS: PCP Internal Medicine; Visit Provider Internal Medicine
DX: Z79.01 Long term (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 of anticoagulants (principal)

== ENCOUNTER → 2023-06-15 08:01 | Outpatient (BNVA) | payer OTHER, SELFPAY | PROVIDERS: PCP Internal Medicine; Visit Provider Internal Medicine | DX: I82.402 Acute embolism and thrombosis of unspecified deep veins of left lower extremity (principal); Z79.01 Long term (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 of anticoagulants; Z51.81 Encounter for therapeutic drug level monitoring | CPT/HCPCS: 85610; 99211 ==

== ENCOUNTER 2023-06-22 07:59 | Outpatient (AMB) | payer OTHER, SELFPAY ==
[2023-06-22 08:08] LABS: Prothrombin Time Whole Bld POC 22.4 sec (11.1-13.5); ~PT, ~INR - Anti Coag Clinic 1.9 (0.9-1.1)
--- NOTE | 2023-06-22 08:15 | MHC.OFFVISCO ---
Intake Intake Visit Reasons: Anticoagulation Allergies No Known Allergies [No Known Allergies*] Allergy (Verified 06/22/23 08:01) Medication List - Last Reconciled 06/22/23 by Marcia Dave RN clotrimazole 1% 1 appl topical BID 4 weeks miconazole nitrate 2% (Zeasorb AF) 1 appl topical BID mycophenolate mofetil 1,000 mg (2 x 500 mg) PO BID 30 days prednisolone acetate 1% (Pred Forte) 1 drp ophthalmic (eye) BEDTIME prednisone 7.5 mg PO BEDTIME triamcinolone acetonide 0.5% 1 appl topical DAILY warfarin (Jantoven) 4 mg See Protocol PO BEDTIME Nursing Note INR 1.9 out of therapeutic range * Had dose reduced last week, *started having ensure 1 qam with a banana- it was explaoined that it can lower his INR due to large amt of vit k Medications and supplements reviewed Patient status: still has a cough daily to see md soon - able to cough up mucus light tinge of yellow Medications or supplements: no changes Diet: ok taking enure in am Denies any signs and symptoms of bleeding or clotting or unusual bruising Bleeding, bruising, clotting discussed Nutritional guidance given: add foods to help raise the INR while on ensure Dose: 6mg today instead of then resume 4mg x 6 days/ 6mg x 1 day F/U INR Date: 2 weeks ?? Patient verbalizing understanding of instructions given. 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
== END 2023-06-22 08:19 | disposition home or self-care (01) ==
LOC: HO.ACS 07:59
PROVIDERS: PCP Internal Medicine; Visit Provider Internal Medicine
DX: Z79.01 Long term (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 of anticoagulants (principal)

== ENCOUNTER → 2023-06-22 07:59 | Outpatient (BNVA) | payer OTHER, SELFPAY | PROVIDERS: PCP Internal Medicine; Visit Provider Internal Medicine | DX: I82.402 Acute embolism and thrombosis of unspecified deep veins of left lower extremity (principal); Z79.01 Long term (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 of anticoagulants; Z51.81 Encounter for therapeutic drug level monitoring | CPT/HCPCS: 85610; 99211 ==

== ENCOUNTER 2023-07-06 07:55 | Outpatient (AMB) | payer OTHER, SELFPAY ==
[2023-07-06 08:07] LABS: Prothrombin Time Whole Bld POC 28.9 sec (11.1-13.5); ~PT, ~INR - Anti Coag Clinic 2.4 (0.9-1.1)
--- NOTE | 2023-07-06 08:14 | MHC.OFFVISCO ---
Intake Intake Visit Reasons: Anticoagulation Allergies No Known Allergies [No Known Allergies*] Allergy (Verified 07/06/23 08:01) Medication List - Last Reconciled 07/06/23 by Mami Springer RN clotrimazole 1% 1 appl topical BID 4 weeks miconazole nitrate 2% (Zeasorb AF) 1 appl topical BID mycophenolate mofetil 1,000 mg (2 x 500 mg) PO BID 30 days prednisolone acetate 1% (Pred Forte) 1 drp ophthalmic (eye) BEDTIME prednisone 7.5 mg PO BEDTIME triamcinolone acetonide 0.5% 1 appl topical DAILY warfarin (Jantoven) 4 mg See Protocol PO BEDTIME Nursing Note INR: 2.4 in therapeutic range of 2-3 Medications and supplements reviewed Pt states he stopped ensure daily and might have 1 or 2/week feels better. Still has persistent cough. No changes in health, medications, or supplements, Denies any signs and symptoms of bleeding or bruising or clotting. 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
== END 2023-07-06 08:19 | disposition home or self-care (01) ==
LOC: HO.ACS 07:55
PROVIDERS: PCP Internal Medicine; Visit Provider Internal Medicine
DX: Z79.01 Long term (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 of anticoagulants (principal)

== ENCOUNTER → 2023-07-06 07:55 | Outpatient (BNVA) | payer OTHER, SELFPAY | PROVIDERS: PCP Internal Medicine; Visit Provider Internal Medicine | DX: I82.402 Acute embolism and thrombosis of unspecified deep veins of left lower extremity (principal); Z79.01 Long term (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 of anticoagulants; Z51.81 Encounter for therapeutic drug level monitoring | CPT/HCPCS: 85610; 99211 ==

== ENCOUNTER 2023-07-08 06:02 | Outpatient (REF) | payer OTHER, SELFPAY ==
[2023-07-08 06:21] LABS: MANUAL DIFF FLAG NO
[2023-07-08 07:40] LABS: Basophils Percent Auto 0.7 % (0-2); Eosinophils Absolute Auto 0.1 X10*3/uL (0.0-0.4); Eosinophils Percent Auto 3.1 % (0-4); Hematocrit 45.6 % (42.0-52.0); Hemoglobin 14.9 g/dl (14.0-18.0); Imm Gran Abs Auto 0.02 X10*3/uL (0.00-0.03); Imm Gran Pct Auto 0.4 % (0.0-0.4); Lymphocytes Percent Auto 21.9 % (20-40); Mean Corpuscular HGB Conc 32.7 g/dl (31.0-36.0); Mean Corpuscular Hemoglobin 27.1 pg (27.0-33.0); Mean Corpuscular Volume 83.1 fL (80.0-98.0); Mean Platelet Volume 11.1 fL (9.4-12.4); Monocytes Absolute Auto 0.5 X10*3/uL (0.1-1.2); Monocytes Percent Auto 10.1 % (2-11); Neutrophils Absolute Auto 2.9 x10*3/uL (2.0-8.3); Neutrophils Percent Auto 63.8 % (45-73); Platelet Count 160 X10*3/uL (160-400); Red Blood Count 5.49 X10*6/uL (4.60-5.80); Red Cell Distribution Width 15.3 % (11.0-16.0); White Blood Count 4.6 X10*3/uL (4.8-10.8)
[2023-07-08 07:46] LABS: Estimated Average Glucose 120 mg/dL; Hemoglobin A1c % 5.8 % (<6.0)
[2023-07-08 08:04] LABS: Alanine Aminotransferase 24 U/L (0-40); Albumin Level 3.8 g/dL (3.5-5.0); Alkaline Phosphatase 112 U/L (39-117); Anion Gap 11 (12-20); Aspartate Amino Transferase 23 U/L (5-37); Bilirubin Total 1.7 mg/dL (0.0-1.0); Blood Urea Nitrogen 11 mg/dL (9-16); Calcium 9.3 mg/dL (8.4-10.2); Carbon Dioxide 29 mmol/L (22-29); Chloride 105 mmol/L (96-108); Cholesterol 170 mg/dL (<200); Estimated Glomerular Filt Rate > 60; Glucose Random 86 mg/dL (60-115); HDL Cholesterol 47 mg/dL (>40); LDL Cholesterol Calculated 104 mg/dL (<100); Potassium 4.5 mmol/L (3.3-5.1); Sodium 140 mmol/L (135-145); Triglycerides 95 mg/dL (<150)
[2023-07-08 08:25] LABS: Free T4 (Free Thyroxine) 0.82 ng/dL (0.71-1.85); Thyroid Stimulating Hormone 0.54 uIU/mL (0.32-4.0)
== END 2023-07-08 06:03 | disposition home or self-care (01) ==
LOC: HO.LAB 06:02
PROVIDERS: PCP Internal Medicine; Visit Provider Internal Medicine
DX: E78.00 Pure hypercholesterolemia, unspecified (principal)
CPT/HCPCS: 36415; 80053; 80061; 83036; 84439; 84443; 85025

== ENCOUNTER 2023-07-09 15:15 | Outpatient (AMB) | payer OTHER, SELFPAY ==
[2023-07-09 15:15] VITALS: BP 124/72; PULSE 77; O2SAT 95; BMI 26.6
--- NOTE | 2023-07-09 15:15 | A.OFFPC_ITS ---
Vital Signs 07/09/23 15:15 Height 5 ft 4 in Weight 155 lb BMI 26.6 BP 124/72 Blood Pressure Location Lt brachial Position Sitting Pulse 77 Pulse Source Pulse Oximeter Pulse Oximetry (%) 95 Oxygen Delivery Method Room Air Intake Visit Reasons: cough, renal calculi, frequency Leadership Intern Required: No Allergies No Known Allergies [No Known Allergies*] Allergy (Verified 07/09/23 15:16) Medication List - Last Reconciled 07/09/23 by Jaz Myers MD clotrimazole 1% 1 appl topical BID 4 weeks gabapentin 300 mg PO BEDTIME miconazole nitrate 2% (Zeasorb AF) 1 appl topical BID mycophenolate mofetil 1,000 mg (2 x 500 mg) PO BID 30 days prednisolone acetate 1% (Pred Forte) 1 drp ophthalmic (eye) BEDTIME prednisone 7.5 mg PO BEDTIME tamsulosin 0.4 mg PO BEDTIME triamcinolone acetonide 0.5% 1 appl topical DAILY warfarin (Jantoven) 4 mg See Protocol PO BEDTIME Tobacco use date assessed: 07/09/23 Dental Screening Dental Screen Date: 07/09/23 HPI cough, renal calculi, frequency HPI Details 57-year-old male with hypercholesterolem ia protein S deficiency with sarcoidosis on anticoagulation fatty liver impaired glucose tolerance having frequency of micturition coming in for follow-up last seen in March 2023. Patient is due for colonoscopy later this year. Review of the notes had blood work done as well as has seen Pulmonary. Patient is on prednisone 7.5 mg once a day and on mycophenolic acid advised to have a CT scan in 3 months. With the frequency patient had an ultrasound done and noted to have a moderate to large post void residual prevoid of 308 postvoid of 83 with prostate 83.5 cc [facility] Medical History (Updated 05/05/23 @ 18:30 by Jaz Myers MD) Bronchomalacia Right inguinal hernia Sarcoidosis Pulmonary nodules Obesity (BMI 30.0-34.9) Bleeding hemorrhoids Leg pain, right LFT elevation Hyperkalemia Glaucoma BPH (benign prostatic hyperplasia) Vitamin D deficiency Hypercholesterolemia Protein S deficiency DVT (deep venous thrombosis) Thrombocytopenia Surgical History History of right inguinal hernia repair Hx of lymph node biopsy Hx of colonoscopy History of umbilical hernia repair History of appendectomy History of sinus surgery Family History Mother No problems noted. Father Medical history unknown Daughter In good health Sister In good health Brother Lung cancer Social History (Updated 04/06/23 @ 15:34 by Jaz Myers MD) Household Members: Significant Other Housing: House Are you a primary child care team lead to a significant other at home: No Do you presently have visiting nurse or other home services: No Alcohol intake: current Alcohol intake frequency: holidays/special occasions only Comment: 3x a year 2 drinks Patient Tobacco Use Status: Never used Tobacco e-Cigarette/Vaping Use: Never Used Second Hand Smoke Exposure: No service: No Current occupational status: employed Cognitive needs: No Hearing needs: No Vision needs: Yes Questionnaire PHQ-9 Over the last 2 weeks, how often have you been bothered by any of the following problems? 1. Little interest or pleasure in doing things: not at all 2. Feeling down, depressed, or hopeless: not at all 3. Trouble falling or staying asleep, or sleeping too much: not at all 4. Feeling tired or having little energy: not at all 5. Poor appetite or overeating: not at all 6. Feeling bad about yourself - or that you are a failure or have let yourself or your family down: not at all 7. Trouble concentrating on things, such as reading the newspaper or watching television: not at all 8. Moving or speaking so slowly that other people could have noticed. Or the opposite - being so fidgety or restless that you have been moving around a lot more than usual: not at all 9. Thoughts that you would be better off or of hurting yourself in some way: not at all Total score: 0 Depression Screening Interpretation: Negative Depression Screening Done: Yes Source: Developed by Drs. Mason Burton, Irma Morales, Waldemar Mchugh and colleagues, with an educational dc from [employer]. Thrive Questionnaire Date Thrive assessed: 08/21/22 AUDIT C Alcohol Use Questionnaire (AUDIT-C) 1. How often do you have a drink containing alcohol?: Monthly or less 2. How many drinks containing alcohol do you have on a typical day when you are drinking?: 1 or 2 3. How often do you have six or more drinks on one occasion?: Never Total Score: 1 SNADRA-7 AMB Questionnaire SANDRA-7 Date SANDRA - 7 assessed: 07/09/23 Feeling nervous, anxious, or on edge: 0 = Not at all Not being able to stop or control worryin = Not at all Worrying too much about different things: 0 = Not at all Trouble relaxin = Not at all Being so restless that it is hard to sit still: 0 = Not at all Becoming easily annoyed or irritable: 0 = Not at all Feeling afraid as if something awful might happen: 0 = Not at all Total SANDRA-7 score (0-4 normal; 5-9 mild; 10-14 moderate; 15-21 severe): 0 Source: Developed by Drs. Mason Burton, Irma Morales, Waldemar Mchugh and colleagues, with an educational dc from [employer]. Physical exam (Primary Care) Vital Signs: Last Vital Signs Pulse 77 07/09/23 15:15 BP 124/72 07/09/23 15:15 Pulse Ox 95 07/09/23 15:15 Oxygen Delivery Method Room Air 07/09/23 15:15 BMI result Body Mass Index 26.6 Tobacco/Smoking Status: Tobacco use Status Tobacco use date assessed 07/09/23 07/09/23 15:16 Patient Tobacco Use Status Never used Tobacco 07/09/23 15:16 e-Cigarette/Vaping Use Never Used 07/09/23 15:16 PHQ-9: PHQ-9 Score PHQ-9: Total score 0 07/09/23 15:36 Depression Screening Interpretation: Negative Thrive Assessment: Date of Thrive Assessment Date Thrive assessed 08/21/22 07/09/23 15:16 Const General: alert; No acute distress Eyes Conjunctivae: conjunctivae normal Resp Auscultation: clear to auscultation bilaterally Cardio Rate: regular rate Rhythm: regular rhythm GI Inspection: Yes normal to inspection Extrem General: Yes normal to inspection and No edema Assessment and Plan Assessment & Plan (1) BPH (benign prostatic hyperplasia): Comment: April 2023LADDER: Well distended and normal. Bilateral ureteral jets are demonstrated. Prevoid bladder volume is 308 mL. Postvoid bladder volume is 83.6 mL. ADDITIONAL FINDINGS: The prostate is enlarged, measuring approximately 83.5 mL. US/US retroperitoneal comp IMPRESSION: 1. Normal appearance of the kidneys. 2. Moderate to large post void residual. 3. Large prostate. Code(s): N40.0 - Benign prostatic hyperplasia without lower urinary tract symptoms Qualifiers: Lower urinary tract symptom presence: symptoms present Lower urinary tract symptom detail: urinary frequency Qualified Code(s): N40.1 - Benign prostatic hyperplasia with lower urinary tract symptoms; R35.0 - Frequency of micturition Plan: Started on tamsulosin to help with urination but discussed that if the medication does not provide relief will need to refer to urology (2) Hypercholesterolemia: Code(s): E78.00 - Pure hypercholesterolemia, unspecified Plan: Avoid fried foods, chicken skin, eggs, butter margarine, pastries and meat. Be it pork or beef they have a lot of cholesterol LDL goal of less than 130 and triglyceride of less than 150. Good on blood work June 2023 (3) Protein S deficiency: Code(s): D68.59 - Other primary thrombophilia Plan: Continue with anticoagulation with Coumadin (4) Sarcoidosis: Comment: dx 2011-[place] [place] Code(s): D86.9 - Sarcoidosis, unspecified Plan: Patient follows up with Pulmonary placed on mycophenolate and prednisone (5) Impaired glucose tolerance: Code(s): R73.02 - Impaired glucose tolerance (oral) Plan: Decrease the amount of carbohydrate intake, pasta, bread, rice and potatoes are all sugar and that is aside from all the sweet stuff, remember that fruits are good but they are Sweet also. Most likely from the prednisone (6) Cough: Code(s): R05 - Cough Medications: New tamsulosin 0.4 mg PO BEDTIME 30 caps 2RF N40.1 - Benign prostatic hyperplasia with lower urinary tract symptoms, R35.0 - Frequency of micturition gabapentin 300 mg PO BEDTIME 30 caps 1RF R05 - Cough Patient Instructions: Patient continues to have cough and has been tried on Tussionex, dextromethorphan Coding Level of Care Code Est Pt Level 4 (77321) Diagnoses Benign prostatic hyperplasia with urinary frequency N40.1; R35.0 Lower urinary tract symptom presence: symptoms present Lower urinary tract symptom detail: urinary frequency Hypercholesterolemia E78.00 Protein S deficiency D68.59 Sarcoidosis D86.9 Impaired glucose tolerance R73.02 Cough R05
== END 2023-07-09 15:58 | disposition home or self-care (01) ==
PROVIDERS: PCP Internal Medicine; Visit Provider Internal Medicine
DX: E78.00 Pure hypercholesterolemia, unspecified (principal); N40.1 Benign prostatic hyperplasia with lower urinary tract symptoms; R35.0 Frequency of micturition; D68.59 Other primary thrombophilia; D86.9 Sarcoidosis, unspecified; R73.02 Impaired glucose tolerance (oral); R05.9 Cough, unspecified
CPT/HCPCS: 99214

== ENCOUNTER 2023-07-26 08:02 | Outpatient (AMB) | payer OTHER, SELFPAY ==
--- NOTE | 2023-07-26 08:09 | MHC.OFFVISCO ---
Intake Intake Visit Reasons: Anticoagulation Allergies No Known Allergies [No Known Allergies*] Allergy (Verified 07/26/23 08:03) Medication List - Last Reconciled 07/26/23 by Robyn Ulloa RN clotrimazole 1% 1 appl topical BID 4 weeks gabapentin 300 mg PO BEDTIME miconazole nitrate 2% (Zeasorb AF) 1 appl topical BID mycophenolate mofetil 1,000 mg (2 x 500 mg) PO BID 30 days prednisolone acetate 1% (Pred Forte) 1 drp ophthalmic (eye) BEDTIME prednisone 7.5 mg PO BEDTIME tamsulosin 0.4 mg PO BEDTIME triamcinolone acetonide 0.5% 1 appl topical DAILY warfarin (Jantoven) 4 mg See Protocol PO BEDTIME Nursing Note INR: 2.2- in therapeutic range- 2-3 Medications and supplements reviewed- pt now taking gabapentin and tamsulosin- no interaction with warfarin per micromedex No changes in health, diet, medications, or supplements, Denies any signs and symptoms of bleeding or bruising or clotting. Bleeding, bruising, clotting discussed Nutritional guidance given Dose: 4mg x 6, 6mg x 1 F/U INR: 3 weeks Patient verbalizes understanding of instructions given pt cont to c.o cough, productive at times, upcoming pulmonology appt and ct scan pt states occ nyquil- aware interacts with warfarin Anti-Coag Initial Assessment Social Hx Patient Tobacco Use Status: Never used Tobacco alcohol intake: current Alcohol intake frequency: holidays/special occasions only Coding Level of Care Code Est Patient Level 1 Diagnoses Current use of anticoagulant therapy Z79.01 Assessment & Plan Assessment & Plan (1) Current use of anticoagulant therapy: Code(s): Z79.01 - [facility] (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 Medications: Resumed warfarin (Jantoven) 4 mg See Protocol PO BEDTIME
[2023-07-26 08:11] LABS: Prothrombin Time Whole Bld POC 26.8 sec (11.1-13.5); ~PT, ~INR - Anti Coag Clinic 2.2 (0.9-1.1)
== END 2023-07-26 08:16 | disposition home or self-care (01) ==
LOC: HO.ACS 08:02
PROVIDERS: PCP Internal Medicine; Visit Provider Internal Medicine
DX: Z79.01 Long term (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 of anticoagulants (principal)

== ENCOUNTER → 2023-07-26 08:02 | Outpatient (BNVA) | payer OTHER, SELFPAY | PROVIDERS: PCP Internal Medicine; Visit Provider Internal Medicine | DX: I82.402 Acute embolism and thrombosis of unspecified deep veins of left lower extremity (principal); Z79.01 Long term (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 of anticoagulants; Z51.81 Encounter for therapeutic drug level monitoring | CPT/HCPCS: 85610; 99211 ==

== ENCOUNTER 2023-08-05 15:57 | Outpatient (REF) | payer OTHER, SELFPAY ==
--- NOTE | ~2023-08-05 | CT_ITS ---
EXAMINATION: CT CHEST WITHOUT CONTRAST CLINICAL INFORMATION: Follow-up abnormal chest COMPARISON: 07/07/2022. TECHNIQUE: Multidetector volumetric CT imaging of the chest was done. Axial MIP volume rendering provided. Sagittal and coronal reformatted images were obtained. This CT examination was performed using dose optimization techniques as appropriate, variously including the following: *Automated exposure control *Adjustment of mA and/or kV according to patient size (this includes techniques or standardized protocols for targeted exams where dose is matched to indication/reason for exam; i.e. 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 Increased interstitial markings with central prominence. LUNGS: Trachea and bronchi are patent. Diffuse bronchiectasis and bronchial wall thickening. Unchanged elevated right hemidiaphragm with right hemithorax volume. Paraseptal emphysematous and bullous changes with progression in the left upper lobe. Progression increased reticular markings involving upper and lower lobes. No consolidations. No separately identifiable pulmonary lesions. MEDIASTINUM: Unremarkable thyroid. No significant change multiple prominent prevascular, pretracheal, right paratracheal and subcarinal lymph nodes. Persistent enlarged left hilar lymph nodes with calcifications. Nonaneurysmal aorta with mild atherosclerotic calcifications. Enlarged pulmonary arteries again seen. Surgical clips again identified inferior to the right clavicle. CORONARY ARTERY CALCIFICATION: Mild. PLEURA: There is no pleural effusion. No pleural mass or thickening. AXILLA: No lymphadenopathy. UPPER ABDOMEN: Colonic interposition between the liver and diaphragm. Diverticulosis without diverticulitis. OSSEOUS STRUCTURES: Unremarkable. CT/CT chest wo IV con IMPRESSION: Persistent bronchiectasis. Progression bilateral upper and lower reticular increased markings suggestive of advancing pulmonary fibrosis. Worsening left upper lobe paraseptal emphysema and bullous changes. No significant change prominent mediastinal lymph nodes. Fleischner guidelines were followed.
== END 2023-08-05 15:58 | disposition home or self-care (01) ==
LOC: HO.CT 15:57
PROVIDERS: PCP Internal Medicine; Visit Provider Hospitalist
DX: R91.8 Other nonspecific abnormal finding of lung field (principal)
CPT/HCPCS: 71250

== ENCOUNTER 2023-08-13 15:24 | Outpatient (AMB) | payer OTHER, SELFPAY ==
[2023-08-13 15:31] VITALS: PULSE 90; O2SAT 91; BMI 25.4
--- NOTE | 2023-08-13 15:31 | A.OFFVIS_ITS ---
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 At that point he also had a rash on the face. The patient was noted to have lupus pernio. He did have a biopsy- proven sarcoidosis. The patient did have a CT scan of the chest demonstrating pulmonary nodules and also lymphadenopathy. Although the diagnosis of sarcoid was made based on the skin biopsy. I do not have those results is all per the patient. The patient then was followed by a local paint tester. He was placed on prednisone. Ultimately more recently than that the patient start having worsening shortness of breath and cough. Was then placed on methotrexate up to 8 tablets of the 2.5 mg weekly. However after he started the methotrexate he has been noticing worsening cough and shortness of breath. He did have a recent chest x-ray done at the [facility] which I personally reviewed. It appears that he has a chronically elevated right hemidiaphragm but now appears to have more hazy opacities bilaterally suggesting pneumonitis. I did compare that to his previous x-ray from October which she did not have the degree of pneumonitis as he has now. Therefore I am concerned that he is having some adverse effects of the methotrexate. Assess as far as I know the only involvement of the sarcoid has been his lungs his skin and also the uveitis. 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 It is likely that the thrombotic issues are also related to sarcoidosis. He denies any other involvement of any other end-organ. We did review his blood work his tota l bili is a little elevated and he has had issues with liver in the past. But is hard to know for sure if is related to sarcoid any other etiology. The patient complains that his cough is very significant. He had call the on-call physician was given Tessalon Perles without any significant improvement. For now while we deal with his active sarcoid issue go ahead and give her some codeine cough syrup patient does use state Travis often at nighttime to make sure that he can stop coughing. 08/03/2022 the patient is here for a pulm onary follow-up visit. He still the same. He still complains of cough and some chest congestion. The mucus is yellowish and whitish in color. [id number] severity. Did have worse at nighttime. The patient did switch over to mycophenolate from methotrexate. Seems to be tolerating it although still low dose of 100 mg twice a day. Was able to cut down the prednisone from 20 mg to 10 mg which is reassuring. Will continue to optimize his sarcoid therapy by increasing the mycophenolate to 1000 mg twice a day and also decreasing the prednisone some 0.5 mg. He also will going to go very slowly to make sure that he is able to decrease her dose effec tively. We did review his CT scan of the chest demonstrating significant interstitial lung disease and pulmonary nodules when compared to his CT scan from 2014. He also had pulmonary function studies demonstrating a moderate restrictive ventilatory defect. In part he does have an elevated right hemidiaphragm that is resulting in diminished lung capacity. At this point will continue to maintain him on therapy to make sure that he does not have any progression of the scarring if is due to the sarcoidosis. 11/06/2022 the patient is here for a pulmonary follow-up visit. He continues with his ongoing chest congestion and cough. Moderate severity. Worse at nighttime. Has not responded to the respiratory therapy or the immunosuppressive therapy. He does bring up chest congestion although have been able to get a culture. We did review his CT scan of the chest. The patient does have normal findings. Based on his ongoing cough and his lack of response to his current therapy will plan to perform bronchoscopy. He does have pertinent S deficiency with hypercoagulable state and currently on Coumadin. I will be working with the Coumadin clinic in order to get him ready for the p rocedure. 01/29/2023 the patient is here for apulm onary follow up visit. Complaining that the cough is no better. Moderate in severity. Patient did have significant evidence of bronchomalacia. This is likely contributing to his significant cough. He also had moderate mucoid secretions that were suction. Patient is cultures were all negative. His endobronchial biopsies were negative for any sarcoidosis. Unfortunate patient continues to cough. Explained to him that the issue is the collapsing of the airways. At this point will start him on CPT with the Acapella valve to help him clear secretions. The patient will continue with current respiratory therapy. He will start cough suppressant. 05/06/2023 the patient has a telehealth visit today. He has not recovering from a viral syndrome on home. He is feeling better. He continues on the prednisone 7.5 mg daily and also continues on the mycophenolate. Seems to be tolerating therapy well and his blood sugars have been okay. In regards of his respiratory symptoms he has been coughing a little more secondary to the viral syndrome her [id number] severity. Otherwise feels well he does need any additional therapies at this time. Will plan to repeat his CT scan in 3 months' time year from his last 1 to see the progression of his underlying nodular densities and interstitial lung disease. 08/13/2023 the patient is here for pulmonary follow-up visit. The patient continues have a cough. The cough is moderate severe. He is tried multiple medications without any significant improvement. In regards of the sarcoidosis the patient has been on the chronic prednisone and also has been on mycophenolate 2 g a day. He is noticed also worsening dyspnea on exertion. [id number] severity. He did have a CT scan of the chest which we personally reviewed. It appears it has interval worsening of the pulmonary fibrosis which is concerning. He is already on high dose of mycophenolate and on chronic prednisone. Will go ahead and give him a prednisone taper to see if we can improve the symptoms. In the meantime we talked about other alternative therapies such as Remicade. The patient is open to trying these medications. Will go ahead and request blood work to make sure that he can start the therapy as soon as possible. I also did offer him a 2nd opinion at the sarcoid Clinic at [facility]. However, the patient is concerned about the drive. Will continue to discuss that. Specially in view of the worsening fibrosis. We did go for 6 minute walk test the patient did desaturate down to 87% with activity on room air. Did qualify for a conserving device at 2 L pulse. Will go ahead and request a concentrator and portable oxygen concentrator through [facility]. PFSH Medical History (Updated 08/15/23 @ 22:09 by Chaparro Da Silva MD) Pulmonary fibrosis ILD (interstitial lung disease) Bronchomalacia Right inguinal hernia Sarcoidosis Pulmonary nodules Obesity (BMI 30.0-34.9) Bleeding hemorrhoids Leg pain, right LFT elevation Hyperkalemia Glaucoma BPH (benign prostatic hyperplasia) Vitamin D deficiency Hypercholesterolemia Protein S deficiency DVT (deep venous thrombosis) Thrombocytopenia Surgical History History of right inguinal hernia repair Hx of lymph node biopsy Hx of colonoscopy History of umbilical hernia repair History of appendectomy History of sinus surgery Family History Mother No problems noted. Father Medical history unknown Daughter In good health Sister In good health Brother Lung cancer Social History (Updated 04/06/23 @ 15:34 by Jaz Myers MD) Household Members: Significant Other Housing: House Are you a primary wound care specialist to a significant other at home: No Do you presently have visiting nurse or other home services: No Alcohol intake: current Alcohol intake frequency: holidays/special occasions only Comment: 3x a year 2 drinks Patient Tobacco Use Status: Never used Tobacco e-Cigarette/Vaping Use: Never Used Second Hand Smoke Exposure: No service: No Current occupational status: employed Cognitive needs: No Hearing needs: No Vision needs: Yes Review of Systems Const Denies body aches and Denies fever(s) Eyes Denies change in vision ENT Denies change in voice Card Denies chest pain and Reports dyspnea on exertion Resp Reports chest congestion, Reports cough, Denies hemoptysis, Reports dyspnea on exertion and Denies wheezing GI Denies no additional complaints Musc Reports no additional complaints Skin/Breast Denies new lesions and Reports rash Neuro Reports no additional complaints Endo Denies flushing Sina/Lymph Denies easy bruising and Denies lymphadenopathy Aller/Immun Denies wheezing Physical Exam Vital Signs: Last Vital Signs Pulse 90 08/13/23 15:31 Pulse Ox 91 L 08/13/23 15:31 Oxygen Delivery Method Room Air 08/13/23 15:31 BMI result Body Mass Index 25.4 Const General: comfortable HEENT Head: Yes normocephalic Eyes General: appearance normal, both eyes and all related structures Neck Neck: Yes supple Chest Chest palpation & inspection: normal inspection of the chest Resp Effort & Inspection: normal respiratory effort Auscultation: crackles and diminished lung sounds Cardio Rate: regular rate Rhythm: regular rhythm Heart sounds: S1 normal heart sound present and S2 normal heart sound present GI Auscultation: normal bowel sounds Skin General skin exam: no rashes or lesions noted Extrem General: Yes no clubbing, cyanosis or edema Office Procedures 6 Minute Walk Time:: 22:09 SPO2 % at rest: 93 Pulse at rest: 89 SPO2 % during excercise: 87 Pulse during excercise: 98 Distance in yards walked: 300 Nancy Score: 5 Supplemental Oxygen: the patient was placed on 2 L pulse improving his pulse ox of 94% with activity. The patient will start oxygen supplementation 2l/pulse with activity at this time. 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: Code(s): Z79.52 - care home (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 of systemic steroids (6) Bronchomalacia: Code(s): J98.09 - Other diseases of bronchus, not elsewhere classified (7) Pulmonary fibrosis: Comment: 2011 Code(s): J84.10 - Pulmonary fibrosis, unspecified Plan start oxygen 2L/pulse, requesting POC for better portability from DME start Prednisone taper 30mg will taper to his baseline dose of 7.5mg start Doxycycline x 10-14 days continue Mycophenalate 100mg BID for now start Remicade Bloodwork prior to Remicade consider referral to [facility] sarcoid clinic consider OFEV to slow the progression of the pulmonary fibrosis CPT with acapella valve F/U 2 months Orders: Orders T Spot TB 08/13/23 J84.9 - Interstitial pulmonary disease, unspecified Complete Blood Count Auto Diff 08/13/23 J84.9 - Interstitial pulmonary disease, unspecified Liver Panel 08/13/23 J84.9 - Interstitial pulmonary disease, unspecified Hypersensitive Pneumonitis Prf 08/13/23 J84.9 - Interstitial pulmonary disease, unspecified, R91.8 - Other nonspecific abnormal finding of lung field Basic Metabolic Panel 08/13/23 J84.9 - Interstitial pulmonary disease, unspecified Angiotensin Converting Enzyme 08/13/23 J84.9 - Interstitial pulmonary disease, unspecified JESÚS Reflex Titer and Pattern 08/13/23 J84.9 - Interstitial pulmonary disease, unspecified Medications: New prednisone 30 mg (3 x 10 mg) PO DAILY 90 tabs 3RF 30 days doxycycline monohydrate 100 mg PO BID 28 tabs 0RF 14 days Coding Level of Care Code Est Pt Level 5 (92003) Diagnoses Sarcoid D86.9 Pulmonary nodules R91.8 Pneumonitis J18.9 Chronic cough R05.3 Cough type: chronic 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
[2023-08-15 22:08] VITALS: PULSE 89; O2SAT 93
== END 2023-08-13 16:00 | disposition home or self-care (01) ==
PROVIDERS: PCP Internal Medicine; Visit Provider Hospitalist
DX: D86.9 Sarcoidosis, unspecified (principal); R91.8 Other nonspecific abnormal finding of lung field; J18.9 Pneumonia, unspecified organism; R05.3 Chronic cough; Z79.52 Long term (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 of systemic steroids; J98.09 Other diseases of bronchus, not elsewhere classified; J84.10 Pulmonary fibrosis, unspecified
CPT/HCPCS: 94618; 99215

== ENCOUNTER 2023-08-13 15:24 | Outpatient (REF) | payer OTHER, SELFPAY ==
[2023-08-13 16:31] LABS: MANUAL DIFF FLAG NO
[2023-08-13 17:21] LABS: Basophils Percent Auto 0.4 % (0-2); Eosinophils Absolute Auto 0.2 X10*3/uL (0.0-0.4); Eosinophils Percent Auto 2.5 % (0-4); Hematocrit 45.8 % (42.0-52.0); Hemoglobin 14.8 g/dl (14.0-18.0); Imm Gran Abs Auto 0.02 X10*3/uL (0.00-0.03); Imm Gran Pct Auto 0.3 % (0.0-0.4); Lymphocytes Percent Auto 15.4 % (20-40); Mean Corpuscular HGB Conc 32.3 g/dl (31.0-36.0); Mean Corpuscular Hemoglobin 26.8 pg (27.0-33.0); Mean Platelet Volume 10.9 fL (9.4-12.4); Monocytes Absolute Auto 0.7 X10*3/uL (0.1-1.2); Neutrophils Absolute Auto 4.8 x10*3/uL (2.0-8.3); Neutrophils Percent Auto 71.4 % (45-73); Platelet Count 163 X10*3/uL (160-400); Red Blood Count 5.52 X10*6/uL (4.60-5.80); Red Cell Distribution Width 14.4 % (11.0-16.0); White Blood Count 6.7 X10*3/uL (4.8-10.8)
[2023-08-13 17:57] LABS: Alanine Aminotransferase 27 U/L (0-40); Albumin Level 3.9 g/dL (3.5-5.0); Alkaline Phosphatase 121 U/L (39-117); Anion Gap 15 (12-20); Aspartate Amino Transferase 26 U/L (5-37); Bilirubin Direct 0.4 mg/dL (0.0-0.5); Bilirubin Total 1.1 mg/dL (0.0-1.0); Blood Urea Nitrogen 20 mg/dL (9-16); Calcium 9.8 mg/dL (8.4-10.2); Carbon Dioxide 29 mmol/L (22-29); Chloride 101 mmol/L (96-108); Estimated Glomerular Filt Rate 53; Glucose Random 83 mg/dL (60-115); Sodium 141 mmol/L (135-145); Total Protein 8.8 g/dL (6.5-8.0)
[2023-08-13 18:18] LABS: Erythrocyte Sedimentation Rate 23 MM/HR (0-15)
[2023-08-15 09:28] LABS: Anti Nuclear Antibody Screen NEGATIVE (NEGATIVE)
[2023-08-15 21:23] LABS: TS Negative Control Passed; TS Panel A 0; TS Panel B 0; TS Positive Control Passed; TSpotTB Negative (Negative)
[2023-08-17 14:39] LABS: Angiotensin Converting Enzyme 45.1 U/L (9-67)
[2023-08-19 13:33] LABS: Asperg fumigatus Precip Abs NEGATIVE (NEGATIVE); Micropoly faeni Abs NEGATIVE (NEGATIVE); Pigeon serum Abs NEGATIVE (NEGATIVE); Saccharo pora viridis Abs NEGATIVE (NEGATIVE); Thermo candidus Abs NEGATIVE (NEGATIVE); Thermoa vulgaris #1 NEGATIVE (NEGATIVE)
== END 2023-08-13 15:25 | disposition home or self-care (01) ==
LOC: HO.LAB 15:24
PROVIDERS: PCP Internal Medicine; Visit Provider Hospitalist
DX: R05.3 Chronic cough (principal); D86.9 Sarcoidosis, unspecified; J84.10 Pulmonary fibrosis, unspecified; J18.9 Pneumonia, unspecified organism; R91.8 Other nonspecific abnormal finding of lung field; Z79.52 Long term (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 of systemic steroids; Z79.899 Other long term (current) drug therapy
CPT/HCPCS: 36415; 80048; 80076; 82164; 85025; 85652; 86038; 86331; 86481; 86606; 86609; 94618; 99212

== ENCOUNTER 2023-08-14 11:55 | Outpatient (REF) | payer OTHER, SELFPAY ==
[2023-08-14 13:02] LABS: Appearance Urine Clear; Color Urine Dark Yellow; Glucose Urine UA Negative (Negative); Leukocyte Esterase Urine Negative (Negative); Nitrite Urine Negative (Negative); PH 5.5 (5.0-9.0); Specific Gravity - Urine >= 1.030 (1.005-1.025); Urine Blood Negative (Negative); Urine Ketones Negative (Negative); Urine Protein Negative (Neg-Trace)
[2023-08-14 13:07] LABS: Bacteria Urine None Seen (None Seen); Hyaline Casts Urine 0-2 /LPF (0-2); RBC Urine 0-2 /HPF (0-2); Squamous Epithelial Cell Urine 0-2 /HPF (0-2); WBC Urine 0-5 /HPF (0-5)
== END 2023-08-14 11:56 | disposition home or self-care (01) ==
LOC: HO.LNP 11:55
PROVIDERS: Visit Provider Internal Medicine
DX: R10.84 Generalized abdominal pain (principal)
CPT/HCPCS: 81001

== ENCOUNTER 2023-08-17 07:56 | Outpatient (AMB) | payer OTHER, SELFPAY ==
--- NOTE | 2023-08-17 08:08 | MHC.OFFVISCO ---
Intake Intake Visit Reasons: Anticoagulation Allergies No Known Allergies [No Known Allergies*] Allergy (Verified 08/17/23 08:02) Medication List - Last Reconciled 08/17/23 by Robyn Ulloa RN clotrimazole 1% 1 appl topical BID 4 weeks doxycycline monohydrate 100 mg PO BID 14 days gabapentin 300 mg PO BEDTIME infliximab (Remicade) 336 mg IV Q4W 4 weeks miconazole nitrate 2% (Zeasorb AF) 1 appl topical BID mycophenolate mofetil 1,000 mg (2 x 500 mg) PO BID 30 days prednisolone acetate 1% (Pred Forte) 1 drp ophthalmic (eye) BEDTIME prednisone 7.5 mg PO BEDTIME prednisone 30 mg (3 x 10 mg) PO DAILY 30 days tamsulosin 0.4 mg PO BEDTIME triamcinolone acetonide 0.5% 1 appl topical DAILY warfarin (Jantoven) 4 mg See Protocol PO BEDTIME Nursing Note INR 4.0-?? out of therapeutic range of 2-3 Medications and supplements reviewed Patient status: pt new meds per pulm due to chronic cough Medications or supplements: doxycycline 100mg bid for 14 days, prednisone 30mg daily x 2 weeks then taper Diet: same Denies any signs and symptoms of bleeding or clotting or unusual bruising Bleeding, bruising, clotting discussed Nutritional guidance given: eat greens today and while on antibiotics Dose: hold today then 4mg daily F/U INR Date : 08/24/23 Patient verbalizing understanding of instructions given. pt leaving for [place] on 08/24/23 for 8 days Anti-Coag Initial Assessment Social Hx Patient Tobacco Use Status: Never used Tobacco alcohol intake: current Alcohol intake frequency: holidays/special occasions only Coding Level of Care Code Est Patient Level 1 Diagnoses Current use of anticoagulant therapy Z79.01 Assessment & Plan Assessment & Plan (1) Current use of anticoagulant therapy: Code(s): Z79.01 - correction (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
[2023-08-17 08:11] LABS: Prothrombin Time Whole Bld POC 48.4 sec (11.1-13.5)
== END 2023-08-17 08:32 | disposition home or self-care (01) ==
LOC: HO.ACS 07:56
PROVIDERS: PCP Internal Medicine; Visit Provider Internal Medicine
DX: Z79.01 Long term (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 of anticoagulants (principal)

== ENCOUNTER → 2023-08-17 07:56 | Outpatient (BNVA) | payer OTHER, SELFPAY | PROVIDERS: PCP Internal Medicine; Visit Provider Internal Medicine | DX: I82.402 Acute embolism and thrombosis of unspecified deep veins of left lower extremity (principal); Z79.01 Long term (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 of anticoagulants; Z51.81 Encounter for therapeutic drug level monitoring | CPT/HCPCS: 85610; 99211 ==

== ENCOUNTER 2023-08-24 09:29 | Outpatient (AMB) | payer OTHER, SELFPAY ==
--- NOTE | 2023-08-24 09:52 | MHC.OFFVISCO ---
Intake Intake Visit Reasons: Anticoagulation Allergies No Known Allergies [No Known Allergies*] Allergy (Verified 08/24/23 09:41) Medication List - Last Reconciled 08/24/23 by Marcia Dave RN clotrimazole 1% 1 appl topical BID 4 weeks doxycycline monohydrate 100 mg PO BID 14 days gabapentin 300 mg PO BEDTIME infliximab (Remicade) 336 mg IV Q4W 12 months miconazole nitrate 2% (Zeasorb AF) 1 appl topical BID mycophenolate mofetil 1,000 mg (2 x 500 mg) PO BID 30 days prednisolone acetate 1% (Pred Forte) 1 drp ophthalmic (eye) BEDTIME prednisone 7.5 mg PO BEDTIME prednisone 30 mg (3 x 10 mg) PO DAILY 30 days tamsulosin 0.4 mg PO BEDTIME triamcinolone acetonide 0.5% 1 appl topical DAILY warfarin (Jantoven) 4 mg See Protocol PO BEDTIME Nursing Note INR: 2.2 in therapeutic range- LEAVING FOR [place] TODAY- STILL HAS CONGESTED COUGH Medications and supplements reviewed STILL ON ANTBX X 4 MORE DAYS - CAN EFFECT THE INR AND STEROIDS Denies any signs and symptoms of bleeding or bruising or clotting. Bleeding, bruising, clotting discussed Nutritional guidance given - HAVE GREENS WEEKLY, Dose: 4 MG DAILY THIS WEEK AND NEXT WEEK AND F/U INR 1 WEEK F/U INR: 09/03/23 LAB SLIP GIVEN TO HAVE INR CHK IN [place] PRN ANY UNUSUAL BLEEDING OR BRUIISNG OR CLOTTING SYMPTOMS WHILE IN [place] Patient verbalizes understanding of instructions given Anti-Coag Initial Assessment Social Hx Patient Tobacco Use Status: Never used Tobacco alcohol intake: current Alcohol intake frequency: holidays/special occasions only Coding Level of Care Code Est Patient Level 1 Diagnoses Current use of anticoagulant therapy Z79.01 Results AMB INR Fingerstick AMB INR Fingerstick 2.2 Last Edit by Marcia Dave RN on 08/24/23 09:48 MANUAL ENTRY Assessment & Plan Assessment & Plan (1) Current use of anticoagulant therapy: Code(s): Z79.01 - long term care administrator (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 Orders: Orders Prothrombin Time INR 1 Week Z79.01 - senior care (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 of anticoagulants
[2023-08-24 10:08] LABS: ~PT, ~INR - Anti Coag Clinic 2.2 (0.9-1.1)
== END 2023-08-24 09:57 | disposition home or self-care (01) ==
LOC: HO.ACS 09:29
PROVIDERS: PCP Internal Medicine; Visit Provider Internal Medicine
DX: Z79.01 Long term (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 of anticoagulants (principal)

== ENCOUNTER → 2023-08-24 09:29 | Outpatient (BNVA) | payer OTHER, SELFPAY | PROVIDERS: PCP Internal Medicine; Visit Provider Internal Medicine | DX: I82.402 Acute embolism and thrombosis of unspecified deep veins of left lower extremity (principal); Z79.01 Long term (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 of anticoagulants; Z51.81 Encounter for therapeutic drug level monitoring | CPT/HCPCS: 85610; 99211 ==

== ENCOUNTER 2023-09-03 07:58 | Outpatient (AMB) | payer OTHER, SELFPAY ==
--- NOTE | 2023-09-03 08:21 | MHC.OFFVISCO ---
Intake Intake Visit Reasons: Anticoagulation Allergies No Known Allergies [No Known Allergies*] Allergy (Verified 09/03/23 08:16) Medication List - Last Reconciled 09/03/23 by Robyn Ulloa RN clotrimazole 1% 1 appl topical BID 4 weeks gabapentin 300 mg PO BEDTIME infliximab (Remicade) 336 mg IV Q4W 12 months miconazole nitrate 2% (Zeasorb AF) 1 appl topical BID mycophenolate mofetil 1,000 mg (2 x 500 mg) PO BID 30 days prednisolone acetate 1% (Pred Forte) 1 drp ophthalmic (eye) BEDTIME prednisone 7.5 mg PO BEDTIME prednisone 30 mg (3 x 10 mg) PO DAILY 30 days tamsulosin 0.4 mg PO BEDTIME triamcinolone acetonide 0.5% 1 appl topical DAILY warfarin (Jantoven) 4 mg See Protocol PO BEDTIME Nursing Note INR: 2.9- in therapeutic range of 2-3 Medications and supplements reviewed- finished doxycycline last week- wednesday No changes in health, diet, medications, or supplements, Denies any signs and symptoms of bleeding or bruising or clotting. 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
[2023-09-03 08:22] LABS: Prothrombin Time Whole Bld POC 35.1 sec (11.1-13.5); ~PT, ~INR - Anti Coag Clinic 2.9 (0.9-1.1)
== END 2023-09-03 08:30 | disposition home or self-care (01) ==
LOC: HO.ACS 07:58
PROVIDERS: PCP Internal Medicine; Visit Provider Internal Medicine
DX: Z79.01 Long term (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 of anticoagulants (principal)

== ENCOUNTER → 2023-09-03 07:58 | Outpatient (BNVA) | payer OTHER, SELFPAY | PROVIDERS: PCP Internal Medicine; Visit Provider Internal Medicine | DX: I82.402 Acute embolism and thrombosis of unspecified deep veins of left lower extremity (principal); Z51.81 Encounter for therapeutic drug level monitoring; Z79.01 Long term (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 of anticoagulants | CPT/HCPCS: 85610; 99211 ==

== ENCOUNTER 2023-09-14 07:59 | Outpatient (AMB) | payer OTHER, SELFPAY ==
[2023-09-14 08:11] LABS: Prothrombin Time Whole Bld POC 38.9 sec (11.1-13.5); ~PT, ~INR - Anti Coag Clinic 3.2 (0.9-1.1)
--- NOTE | 2023-09-14 08:14 | MHC.OFFVISCO ---
Intake Intake Visit Reasons: Anticoagulation Allergies No Known Allergies [No Known Allergies*] Allergy (Verified 09/14/23 08:02) Medication List - Last Reconciled 09/14/23 by Mami Springer, VISHAL clotrimazole 1% 1 appl topical BID 4 weeks gabapentin 300 mg PO BEDTIME infliximab (Remicade) 336 mg IV Q4W 12 months miconazole nitrate 2% (Zeasorb AF) 1 appl topical BID prednisolone acetate 1% (Pred Forte) 1 drp ophthalmic (eye) BEDTIME prednisone 7.5 mg PO BEDTIME prednisone 30 mg (3 x 10 mg) PO DAILY 30 days tamsulosin 0.4 mg PO BEDTIME triamcinolone acetonide 0.5% 1 appl topical DAILY warfarin (Jantoven) 4 mg See Protocol PO BEDTIME Nursing Note INR 3.2?out of therapeutic range of 2-3 Medications and supplements reviewed: pt will be having infusion of Remicade. No appt for that as of yet. Pt to call [facility] when appt made to schedule an INR test soon after receiving med and adjust dose as needed. Patient status: persistent cough Medications or supplements: reviewed Diet: usual diet/no changes Denies any signs and symptoms of bleeding or clotting or unusual bruising Bleeding, bruising, clotting discussed Nutritional guidance given: to have a serving of foods to lower INR Dose: usual dose of 4mg daily except 6mg on F/U INR Date : 2 weeks?? Patient verbalizing understanding of instructions given. Anti-Coag Initial Assessment Social Hx Patient Tobacco Use Status: Never used Tobacco alcohol intake: current Alcohol intake frequency: holidays/special occasions only Coding Level of Care Code Est Patient Level 1 Diagnoses Current use of anticoagulant therapy Z79.01 Assessment & Plan Assessment & Plan (1) Current use of anticoagulant therapy: Code(s): Z79.01 - senior living (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
== END 2023-09-14 08:21 | disposition home or self-care (01) ==
LOC: HO.ACS 07:59
PROVIDERS: PCP Internal Medicine; Visit Provider Internal Medicine
DX: Z79.01 Long term (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 of anticoagulants (principal)

== ENCOUNTER → 2023-09-14 07:59 | Outpatient (BNVA) | payer OTHER, SELFPAY | PROVIDERS: PCP Internal Medicine; Visit Provider Internal Medicine | DX: I82.402 Acute embolism and thrombosis of unspecified deep veins of left lower extremity (principal); Z51.81 Encounter for therapeutic drug level monitoring; Z79.01 Long term (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 of anticoagulants | CPT/HCPCS: 85610; 99211 ==

== ENCOUNTER 2023-09-21 14:59 | Outpatient (AMB) | payer OTHER, SELFPAY ==
[2023-09-21 15:07] LABS: Prothrombin Time Whole Bld POC 32.4 sec (11.1-13.5); ~PT, ~INR - Anti Coag Clinic 2.7 (0.9-1.1)
--- NOTE | 2023-09-21 15:10 | MHC.OFFVISCO ---
Intake Intake Visit Reasons: Anticoagulation Allergies No Known Allergies [No Known Allergies*] Allergy (Verified 09/21/23 15:01) Medication List - Last Reconciled 09/21/23 by Mami Springer, VISHAL clotrimazole 1% 1 appl topical BID 4 weeks gabapentin 300 mg PO BEDTIME infliximab (Remicade) 336 mg IV Q4W 12 months miconazole nitrate 2% (Zeasorb AF) 1 appl topical BID prednisolone acetate 1% (Pred Forte) 1 drp ophthalmic (eye) BEDTIME prednisone 7.5 mg PO BEDTIME prednisone 30 mg (3 x 10 mg) PO DAILY 30 days tamsulosin 0.4 mg PO BEDTIME triamcinolone acetonide 0.5% 1 appl topical DAILY warfarin (Jantoven) 4 mg See Protocol PO BEDTIME Nursing Note Pt to [facility] s/p first infusion of Remicade. Pt came directly to [facility] from Med Day Stay. INR: 2.7 in therapeutic range of 2-3 Medications and supplements reviewed: no change No changes in health, diet, medications, or supplements, Denies any signs and symptoms of bleeding or bruising or clotting. Bleeding, bruising, clotting discussed Nutritional guidance given to decrease greens as this med can lower the INR. Dose: continue usual dose of 6mg X 1 day and 4mg X 6 days F/U INR: 1 week Patient verbalizes understanding of instructions given Anti-Coag Initial Assessment Social Hx Patient Tobacco Use Status: Never used Tobacco alcohol intake: current Alcohol intake frequency: holidays/special occasions only Coding Level of Care Code Est Patient Level 1 Diagnoses Current use of anticoagulant therapy Z79.01 Assessment & Plan Assessment & Plan (1) Current use of anticoagulant therapy: Code(s): Z79.01 - care home (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
== END 2023-09-21 15:45 | disposition home or self-care (01) ==
LOC: HO.ACS 14:59
PROVIDERS: PCP Internal Medicine; Visit Provider Internal Medicine
DX: Z79.01 Long term (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 of anticoagulants (principal)

== ENCOUNTER → 2023-09-21 14:59 | Outpatient (BNVA) | payer OTHER, SELFPAY | PROVIDERS: PCP Internal Medicine; Visit Provider Internal Medicine | DX: I82.402 Acute embolism and thrombosis of unspecified deep veins of left lower extremity (principal); Z51.81 Encounter for therapeutic drug level monitoring; Z79.01 Long term (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 of anticoagulants | CPT/HCPCS: 85610; 99211 ==

== ENCOUNTER 2023-09-28 07:59 | Outpatient (AMB) | payer OTHER, SELFPAY ==
[2023-09-28 08:08] LABS: Prothrombin Time Whole Bld POC 32.3 sec (11.1-13.5); ~PT, ~INR - Anti Coag Clinic 2.7 (0.9-1.1)
--- NOTE | 2023-09-28 08:11 | MHC.OFFVISCO ---
Intake Intake Visit Reasons: Anticoagulation Allergies No Known Allergies [No Known Allergies*] Allergy (Verified 09/28/23 08:01) Medication List - Last Reconciled 09/28/23 by Mami Sharp, RN clotrimazole 1% 1 appl topical BID 4 weeks gabapentin 300 mg PO BEDTIME infliximab (Remicade) 336 mg IV Q4W 12 months miconazole nitrate 2% (Zeasorb AF) 1 appl topical BID prednisolone acetate 1% (Pred Forte) 1 drp ophthalmic (eye) BEDTIME prednisone 7.5 mg PO BEDTIME tamsulosin 0.4 mg PO BEDTIME triamcinolone acetonide 0.5% 1 appl topical DAILY warfarin (Jantoven) 4 mg See Protocol PO BEDTIME Nursing Note Amb to [facility] feeling ok, had first remicade infusion last week, sts demond well more frequent monitoring of INR as Remicade can decrease INR continues with cough Medications and supplements reviewed No other changes in health, diet, medications, or supplements, Denies any signs and symptoms of bleeding, bruising, or clotting. INR 2.7 in therapeutic range continue same dose 6mg on and 4mg all other days Nutritional guidance given, pt is not a big green eater, sts he will sometimes have a Boost to drink, encouraged to add serving red, F/U INR:1 week requests 8am appt Patient verbalizes understanding of instructions given Anti-Coag Initial Assessment Social Hx Patient Tobacco Use Status: Never used Tobacco alcohol intake: current Alcohol intake frequency: holidays/special occasions only Coding Level of Care Code Est Patient Level 1 Diagnoses Current use of anticoagulant therapy Z79.01 Time Spent (min) 15 Assessment & Plan Assessment & Plan (1) Current use of anticoagulant therapy: Code(s): 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
== END 2023-09-28 08:20 | disposition home or self-care (01) ==
LOC: HO.ACS 07:59
PROVIDERS: PCP Internal Medicine; Visit Provider Internal Medicine
DX: Z79.01 Long term (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 of anticoagulants (principal)

== ENCOUNTER → 2023-09-28 07:59 | Outpatient (BNVA) | payer OTHER, SELFPAY | PROVIDERS: PCP Internal Medicine; Visit Provider Internal Medicine | DX: I82.402 Acute embolism and thrombosis of unspecified deep veins of left lower extremity (principal); Z79.01 Long term (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 of anticoagulants; Z51.81 Encounter for therapeutic drug level monitoring | CPT/HCPCS: 85610; 99211 ==

== ENCOUNTER 2023-10-07 08:00 | Outpatient (AMB) | payer OTHER, SELFPAY ==
[2023-10-07 08:10] LABS: Prothrombin Time Whole Bld POC 27.3 sec (11.1-13.5); ~PT, ~INR - Anti Coag Clinic 2.3 (0.9-1.1)
--- NOTE | 2023-10-07 08:13 | MHC.OFFVISCO ---
Intake Intake Visit Reasons: Anticoagulation Allergies No Known Allergies [No Known Allergies*] Allergy (Verified 10/07/23 08:03) Medication List - Last Reconciled 10/07/23 by Marcia Dave RN clotrimazole 1% 1 appl topical BID 4 weeks gabapentin 300 mg PO BEDTIME infliximab (Remicade) 336 mg IV Q4W 12 months miconazole nitrate 2% (Zeasorb AF) 1 appl topical BID prednisolone acetate 1% (Pred Forte) 1 drp ophthalmic (eye) BEDTIME prednisone 7.5 mg PO BEDTIME tamsulosin 0.4 mg PO BEDTIME triamcinolone acetonide 0.5% 1 appl topical DAILY warfarin (Jantoven) 4 mg See Protocol PO BEDTIME Nursing Note INR: 2.3 in therapeutic range post remicade infusion - does not notice any changes yet - feels ok except for the coughing Medications and supplements reviewed No changes in health, diet, medications, or supplements, Denies any signs and symptoms of bleeding or bruising or clotting. Bleeding, bruising, clotting discussed Nutritional guidance given - cont to eat a mix of fruits and vegetables Dose: keep same dose 6mg x 1 day/ 4mg x 6 days F/U INR: 2 weeks post infusion Patient verbalizes understanding of instructions given Anti-Coag Initial Assessment Social Hx Patient Tobacco Use Status: Never used Tobacco alcohol intake: current Alcohol intake frequency: holidays/special occasions only Coding Level of Care Code Est Patient Level 1 Diagnoses Current use of anticoagulant therapy Z79.01 Assessment & Plan Assessment & Plan (1) Current use of anticoagulant therapy: Code(s): Z79.01 - long-term (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
== END 2023-10-07 08:18 | disposition home or self-care (01) ==
LOC: HO.ACS 08:00
PROVIDERS: PCP Internal Medicine; Visit Provider Internal Medicine
DX: Z79.01 Long term (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 of anticoagulants (principal)

== ENCOUNTER → 2023-10-07 08:00 | Outpatient (BNVA) | payer OTHER, SELFPAY | PROVIDERS: PCP Internal Medicine; Visit Provider Internal Medicine | DX: I82.402 Acute embolism and thrombosis of unspecified deep veins of left lower extremity (principal); Z79.01 Long term (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 of anticoagulants; Z51.81 Encounter for therapeutic drug level monitoring | CPT/HCPCS: 85610; 99211 ==

== ENCOUNTER 2023-10-15 15:35 | Outpatient (AMB) | payer OTHER, SELFPAY ==
--- NOTE | 2023-10-15 15:57 | A.OFFPC_ITS ---
Vital Signs 10/15/23 15:58 Height 5 ft 4 in Weight 160 lb BMI 27.5 BP 130/82 Blood Pressure Location Lt brachial Position Sitting Pulse 83 Pulse Source Pulse Oximeter Pulse Oximetry (%) 98 Oxygen Delivery Method Room Air Intake Visit Reasons: cough , BPH Allergies No Known Allergies [No Known Allergies*] Allergy (Verified 10/15/23 15:59) Medication List - Last Reconciled 10/15/23 by Jaz Myers MD clotrimazole 1% 1 appl topical BID 4 weeks finasteride 5 mg PO DAILY infliximab (Remicade) 336 mg IV Q4W 12 months miconazole nitrate 2% (Zeasorb AF) 1 appl topical BID prednisolone acetate 1% (Pred Forte) 1 drp ophthalmic (eye) BEDTIME prednisone 7.5 mg PO BEDTIME triamcinolone acetonide 0.5% 1 appl topical DAILY warfarin (Jantoven) 4 mg See Protocol PO BEDTIME Tobacco use date assessed: 07/09/23 Dental Screening Dental Screen Date: 07/09/23 HPI cough , BPH HPI Details 57-year-old overweight male with a histo ry of sarcoidosis protein S deficiency on anticoagulation BPH hypercholesterolemia impaired glucose tolerance last seen in 07/28/2023. Patient is up-to-date with colonoscopy and do late this year. With sarcoid patient follows up with Pulmonary patient was placed on oxygen already as the 6 minute walk test showed desaturation to 87% on ambulation. Has been on and now will be started on Remicade. CT 4Persistent bronchiectasis. Progression bilateral upper and lower reticular increased markings suggestive of advancing pulmonary fibrosis. Worsening left upper lobe paraseptal emphysema and bullous changes. No significant change prominent mediastinal lymph nodes.. Patient complains of frequency still tamsulosin has been prescribed before but no relief. Patient did have an ultrasound done showing prostate size of 83 cc referral to urology done [facility] Medical History (Updated 08/15/23 @ 22:09 by Chaparro Da Silva MD) Pulmonary fibrosis ILD (interstitial lung disease) Bronchomalacia Right inguinal hernia Sarcoidosis Pulmonary nodules Obesity (BMI 30.0-34.9) Bleeding hemorrhoids Leg pain, right LFT elevation Hyperkalemia Glaucoma BPH (benign prostatic hyperplasia) Vitamin D deficiency Hypercholesterolemia Protein S deficiency DVT (deep venous thrombosis) Thrombocytopenia Surgical History History of right inguinal hernia repair Hx of lymph node biopsy Hx of colonoscopy History of umbilical hernia repair History of appendectomy History of sinus surgery Family History Mother No problems noted. Father Medical history unknown Daughter In good health Sister In good health Brother Lung cancer Social History (Updated 04/06/23 @ 15:34 by Jaz Myers MD) Household Members: Significant Other Housing: House Are you a primary healthcare specialist to a significant other at home: No Do you presently have visiting nurse or other home services: No Alcohol intake: current Alcohol intake frequency: holidays/special occasions only Comment: 3x a year 2 drinks Patient Tobacco Use Status: Never used Tobacco e-Cigarette/Vaping Use: Never Used Second Hand Smoke Exposure: No service: No Current occupational status: employed Cognitive needs: No Hearing needs: No Vision needs: Yes Questionnaire PHQ-9 Over the last 2 weeks, how often have you been bothered by any of the following problems? 1. Little interest or pleasure in doing things: not at all 2. Feeling down, depressed, or hopeless: not at all 3. Trouble falling or staying asleep, or sleeping too much: not at all 4. Feeling tired or having little energy: not at all 5. Poor appetite or overeating: not at all 6. Feeling bad about yourself - or that you are a failure or have let yourself or your family down: not at all 7. Trouble concentrating on things, such as reading the newspaper or watching television: not at all 8. Moving or speaking so slowly that other people could have noticed. Or the opposite - being so fidgety or restless that you have been moving around a lot more than usual: not at all 9. Thoughts that you would be better off or of hurting yourself in some way: not at all Total score: 0 Depression Screening Interpretation: Negative Depression Screening Done: Yes Source: Developed by Drs. Mason Burton, Irma Morales, Waldemar Mchugh and colleagues, with an educational dc from [employer]. Thrive Questionnaire Date Thrive assessed: 10/15/23 I am a: Patient What is your living situation today?: I have a steady place to live Within the past 12 months, did the food you bought not last and you didn't have the money to get more?: Never true Within the past 12 months, did you worry whether your food would run out before you got money to buy more?: Never true Do you have trouble paying for medicines?: No Do you have trouble getting transportation to medical appointments?: No Do you have trouble paying your heating and electricity bill?: No Do you have trouble taking care of your child, family member or friend?: No Do you have trouble with day-to-day activities such as bathing, preparing meals, shopping, managing finances, etc.?: No Are you currently unemployed and looking for a job?: No Are you interested in more education?: No Currently or been in a relationship where the following occur: no concerns reported THRIVE Score: 0 AUDIT C Alcohol Use Questionnaire (AUDIT-C) 1. How often do you have a drink containing alcohol?: Monthly or less 2. How many drinks containing alcohol do you have on a typical day when you are drinking?: 1 or 2 3. How often do you have six or more drinks on one occasion?: Never Total Score: 1 SANDRA-7 AMB Questionnaire SANDRA-7 Date SANDRA - 7 assessed: 07/09/23 Source: Developed by Drs. Mason Burton, Irma Morales, Waldemar Mchugh and colleagues, with an educational dc from [employer]. Physical exam (Primary Care) Vital Signs: Last Vital Signs Pulse 83 10/15/23 15:58 BP 130/82 10/15/23 15:58 Pulse Ox 98 10/15/23 15:58 Oxygen Delivery Method Room Air 10/15/23 15:58 BMI result Body Mass Index 27.5 Tobacco/Smoking Status: Tobacco use Status Tobacco use date assessed 07/09/23 10/15/23 16:05 Patient Tobacco Use Status Never used Tobacco 10/15/23 16:05 e-Cigarette/Vaping Use Never Used 10/15/23 16:05 PHQ-9: PHQ-9 Score PHQ-9: Total score 0 10/15/23 16:05 Depression Screening Interpretation: Negative Thrive Assessment: Date of Thrive Assessment Date Thrive assessed 10/15/23 10/15/23 16:05 Currently or been in a relationship where the following occur: no concerns reported Const General: alert; No acute distress Eyes Conjunctivae: conjunctivae normal Resp Auscultation: clear to auscultation bilaterally Cardio Rate: regular rate Rhythm: regular rhythm GI Inspection: Yes normal to inspection Extrem General: Yes normal to inspection and No edema Assessment and Plan Assessment & Plan (1) Pulmonary fibrosis: Comment: 2011 Code(s): J84.10 - Pulmonary fibrosis, unspecified Plan: Patient has been followed up by Pulmonary and has been placed on Remicade. (2) ILD (interstitial lung disease): Code(s): J84.9 - Interstitial pulmonary disease, unspecified Plan: Concern about the problem presently started on oxygen (3) Sarcoidosis: Comment: dx 2011-follows w/Dr. Da Silva ([facility] [place]) Code(s): D86.9 - Sarcoidosis, unspecified Plan: Patient placed on and prednisone (4) Protein S deficiency: Code(s): D68.59 - Other primary thrombophilia Plan: Continue with anticoagulation with Coumadin (5) Hypercholesterolemia: Code(s): E78.00 - Pure hypercholesterolemia, unspecified Plan: Avoid fried foods, chicken skin, eggs, butter margarine, pastries and meat. Be it pork or beef they have a lot of cholesterol (6) BPH (benign prostatic hyperplasia): Comment: April 2023LADDER: Well distended and normal. Bilateral ureteral jets are demonstrated. Prevoid bladder volume is 308 mL. Postvoid bladder volume is 83.6 mL. ADDITIONAL FINDINGS: The prostate is enlarged, measuring approximately 83.5 mL. US/US retroperitoneal comp IMPRESSION: 1. Normal appearance of the kidneys. 2. Moderate to large post void residual. 3. Large prostate. Code(s): N40.0 - Benign prostatic hyperplasia without lower urinary tract symptoms Qualifiers: Lower urinary tract symptom presence: symptoms present Lower urinary tract symptom detail: urinary frequency Qualified Code(s): N40.1 - Benign prostatic hyperplasia with lower urinary tract symptoms; R35.0 - Frequency of micturition Plan: Patient did not feel the tamsulosin help and has been having frequency still. Will refer to Urology meanwhile start on finasteride Orders: Referrals Urology Referral N40.1 - Benign prostatic hyperplasia with lower urinary tract symptoms, R35.0 - Frequency of micturition Medications: New finasteride 5 mg PO DAILY 30 tabs 1RF N40.1 - Benign prostatic hyperplasia with lower urinary tract symptoms, R35.0 - Frequency of micturition Discontinued tamsulosin Discontinued Reason: Doctor's Order 0.4 mg PO BEDTIME 90 caps 0RF N40.1 - Benign prostatic hyperplasia with lower urinary tract symptoms, R35.0 - Frequency of micturition gabapentin Discontinued Reason: Doctor's Order 300 mg PO BEDTIME 30 caps 1RF R05 - Cough Coding Level of Care Code Est Pt Level 4 (25140) Complex EM visit Add On G2211 Diagnoses Pulmonary fibrosis J84.10 ILD (interstitial lung disease) J84.9 Sarcoidosis D86.9 Protein S deficiency D68.59 Hypercholesterolemia E78.00 Benign prostatic hyperplasia with urinary frequency N40.1; R35.0 Lower urinary tract symptom presence: symptoms present Lower urinary tract symptom detail: urinary frequency
[2023-10-15 15:58] VITALS: BP 130/82; PULSE 83; O2SAT 98; BMI 27.5
== END 2023-10-15 16:55 | disposition home or self-care (01) ==
PROVIDERS: PCP Internal Medicine; Visit Provider Internal Medicine
DX: J84.10 Pulmonary fibrosis, unspecified (principal); J84.9 Interstitial pulmonary disease, unspecified; D86.9 Sarcoidosis, unspecified; D68.59 Other primary thrombophilia; E78.00 Pure hypercholesterolemia, unspecified; N40.1 Benign prostatic hyperplasia with lower urinary tract symptoms; R35.0 Frequency of micturition
CPT/HCPCS: 99214; G2211

== ENCOUNTER 2023-10-21 15:54 | Outpatient (AMB) | payer OTHER, SELFPAY ==
--- NOTE | 2023-10-21 15:58 | MHC.OFFVISCO ---
Intake Intake Visit Reasons: Anticoagulation Allergies No Known Allergies [No Known Allergies*] Allergy (Verified 10/21/23 15:54) Medication List - Last Reconciled 10/21/23 by Robyn Ulloa RN clotrimazole 1% 1 appl topical BID 4 weeks finasteride 5 mg PO DAILY infliximab (Remicade) 336 mg IV Q4W 12 months miconazole nitrate 2% (Zeasorb AF) 1 appl topical BID prednisolone acetate 1% (Pred Forte) 1 drp ophthalmic (eye) BEDTIME prednisone 7.5 mg PO BEDTIME triamcinolone acetonide 0.5% 1 appl topical DAILY warfarin (Jantoven) 4 mg See Protocol PO BEDTIME Nursing Note INR: 2.5- in therapeutic range of 2-3 Medications and supplements reviewed- no changes No changes in health, diet, medications, or supplements, Denies any signs and symptoms of bleeding or bruising or clotting. Bleeding, bruising, clotting discussed Nutritional guidance given Dose: 6mg x 1. 4mg x 6 F/U INR: 2 weeks Patient verbalizes understanding of instructions given Anti-Coag Initial Assessment Social Hx Patient Tobacco Use Status: Never used Tobacco alcohol intake: current Alcohol intake frequency: holidays/special occasions only Coding Level of Care Code Est Patient Level 1 Diagnoses Current use of anticoagulant therapy Z79.01 Assessment & Plan Assessment & Plan (1) Current use of anticoagulant therapy: Code(s): Z79.01 - FPC (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
[2023-10-21 15:59] LABS: Prothrombin Time Whole Bld POC 30.3 sec (11.1-13.5); ~PT, ~INR - Anti Coag Clinic 2.5 (0.9-1.1)
== END 2023-10-21 16:17 | disposition home or self-care (01) ==
LOC: HO.ACS 15:54
PROVIDERS: PCP Internal Medicine; Visit Provider Internal Medicine
DX: Z79.01 Long term (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 of anticoagulants (principal)

== ENCOUNTER → 2023-10-21 15:54 | Outpatient (BNVA) | payer OTHER, SELFPAY | PROVIDERS: PCP Internal Medicine; Visit Provider Internal Medicine | DX: I82.402 Acute embolism and thrombosis of unspecified deep veins of left lower extremity (principal); Z79.01 Long term (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 of anticoagulants; Z51.81 Encounter for therapeutic drug level monitoring | CPT/HCPCS: 85610; 99211 ==

== ENCOUNTER 2023-10-26 15:23 | Outpatient (AMB) | payer OTHER, SELFPAY ==
[2023-10-26 15:32] VITALS: PULSE 83; O2SAT 94; BMI 26.6
--- NOTE | 2023-10-26 15:32 | A.OFFVIS_ITS ---
Vital Signs 10/26/23 15:32 Height 5 ft 4 in Weight 155 lb BMI 26.6 Pulse 83 Pulse Source Pulse Oximeter Pulse Oximetry (%) 94 Oxygen Delivery Method Room Air Intake Visit Reasons: Pulm Fibrosis Adult Psychiatrist Required: No Allergies No Known Allergies [No Known Allergies*] Allergy (Verified 10/26/23 15:33) HPI Comments Details: The patient is a 57-year-old gentleman with a known history of sarcoidosis. 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 At that point he also had a rash on the face. The patient was noted to have lupus pernio. He did have a biopsy-proven sarcoidosis. The patient did have a CT scan of the chest demonstrating pulmonary nodules and also lymphadenopathy. Although the diagnosis of sarcoid was made based on the skin biopsy. I do not have those results is all per the patient. The patient then was followed by a local time checker. He was placed on prednisone. Ultimately more recently than that the patient start having worsening shortness of breath and cough. Was then placed on methotrexate up to 8 tablets of the 2.5 mg weekly. However after he started the methotrexate he h as been noticing worsening cough and shortness of breath. He did have a recent chest x-ray done at the [facility] which I personally reviewed. It appears that he has a chronically elevated right hemidiaphragm but now appears to have more hazy opacities bilaterally suggesting pneumonitis. I did compare that to his previous x-ray from October which she did not have the degree of pneumonitis as he has now. Therefore I am concerned that he is having some adverse effects of the methotrexate. Assess as far as I know the only involvement of the sarcoid has been his lungs his skin and also the uveitis. 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 It is likely that the thrombotic issues are also related to sarcoidosis. He denies any other involvement of any other end-organ. We did review his blood work his total bili is a little elevated and he has had issues with liver in the past. But is hard to know for sure if is related to sarcoid any other etiology. The patient complains that his cough is very significant. He had call the on-call physician was given Laith Kraus without any significant improvement. For now while we deal with his active sarcoid issue go ahead and give her some codeine cough syrup patient does use state Travis often at nighttime to make sure that he can stop coughing. 08/03/2022 the patient is here for a pulmonary follow-up visit. He still the same. He still complains of cough and some chest congestion. The mucus is yellowish and whitish in color. Unvd-kc-bgpyelqr severity. Did have worse at nighttime. The patient did switch over to mycophenolate from methotrexate. Seems to be tolerating it although still low dose of 100 mg twice a day. Was able to cut down the prednisone from 20 mg to 10 mg which is reassuring. Will continue to optimize his sarcoid therapy by increasing the mycophenolate to 1000 mg twice a day and also decreasing the prednisone some 0.5 mg. He also will going to go very slowly to make sure that he is able to decrease her dose effectively. We did review his CT scan of the chest demonstrating significant interstitial lung disease and pulmonary nodules when compared to his CT scan from 2015. He also had pulmonary function studies demonstrating a moderate restrictive ventilatory defect. In part he does have an elevated right hemidiaphragm that is resulting in diminished lung capacity. At this point will continue to maintain him on therapy to make sure that he does not have any progression of the scarring if is due to the sarcoidosis. 11/06/2022 the patient is here for a pulmonary follow-up visit. He continues with his ongoing chest congestion and cough. Moderate severity. Worse at nighttime. Has not responded to the respiratory therapy or the immunosuppress terry therapy. He does bring up chest congestion although have been able to get a culture. We did review his CT scan of the chest. The patient does have normal findings. Based on his ongoing cough and his lack of response to his current therapy will plan to perform bronchoscopy. He does have pertinent S deficiency with hypercoagulable state and currently on Coumadin. I will be working with [facility] in order to get him ready for the procedure. 01/29/2023 the patient is here for apulmonary follow up visit. Complaining that the cough is no better. Moderate in severity. Patient did have significant evidence of bronchomalacia. This is likely contributing to his significant cough. He also had moderate mucoid secretions that were suction. Patient is cultures were all negative. His endobronchial biopsies were negative for any sarcoidosis. Unfortunate patient continues to cough. Explained to him that the issue is the collapsing of the airways. At this point will start him on CPT with the Acapella valve to help him clear secretions. The patient will continue with current respiratory therapy. He will start cough suppressant. 05/06/2023 the patient has a telehealth visit today. He has not recovering from a viral syndrome on home. He is feeling better. He continues on the prednisone 7.5 mg daily and also continues on the mycophenolate. Seems to be tolerating therapy well and his blood sugars have been okay. In regards of his respiratory symptoms he has been coughing a little more secondary to the viral syndrome her rghz-dh-wtsclkyl severity. Otherwise feels well he does need any additional therapies at this time. Will plan to repeat his CT scan in 3 months' time year from his last 1 to see the progression of his underlying nodular densities and interstitial lung disease. 08/13/2023 the patient is here for pulmonary follow-up visit. The patient continues have a cough. The cough is moderate severe. He is tried multiple medications without any significant improvement. In regards of the sarcoidosis the patient has been on the chronic prednisone and also has been on mycophenolate 2 g a day. He is noticed also worsening dyspnea on exertion. Shdh-pa-vuidvvhq severity. He did have a CT scan of the chest which we personally reviewed. It appears it has interval worsening of the pulmonary fibrosis which is concerning. He is already on high dose of mycophenolate and on chronic prednisone. Will go ahead and give him a prednisone taper to see if we can improve the symptoms. In the meantime we talked about other alternative therapies such as Remicade. The patient is open to trying these medications. Will go ahead and request blood work to make sure that he can start the therapy as soon as possible. I also did offer him a 2nd opinion at the sarcoid Clinic at [facility]. However, the patient is concerned about the drive. Will continue to discuss that. Specially in view of the worsening fibrosis. We did go for 6 minute walk test the patient did desaturate down to 87% with activity on room air. Did qualify for a conserving device at 2 L pulse. Will go ahead and request a concentrator and portable oxygen concentrator through [facility]. 10/26/2023 the patient is here for pulmonary follow-up visit. Overall the patient has been doing well. He is still coughing though. Moderate severity. Denies any shortness of breath. He was switched over to Remicade because he continued to have progression of the interstitial lung disease even on high doses of the mycophenolate. He seems to be tolerating medication well infusions are going well without any adverse effects. Will plan to repeat an x-ray in the next few months to see if there is any progression. Although his respiratory exam is indeed better this time. His cough is mainly in upper airway cough syndrome. Will try to treat him with Sudafed and also 1st generation antihistamines to see if we can settle down the cough. He is tried multiple other alte-bjv-tvopvqy medications in prescription medication without any significant improvement. Follow-up in 3 months. [facility] Medical History (Updated 08/15/23 @ 22:09 by Chaparro Da Silva MD) Pulmonary fibrosis ILD (interstitial lung disease) Bronchomalacia Right inguinal hernia Sarcoidosis Pulmonary nodules Obesity (BMI 30.0-34.9) Bleeding hemorrhoids Leg pain, right LFT elevation Hyperkalemia Glaucoma BPH (benign prostatic hyperplasia) Vitamin D deficiency Hypercholesterolemia Protein S deficiency DVT (deep venous thrombosis) Thrombocytopenia Surgical History History of right inguinal hernia repair Hx of lymph node biopsy Hx of colonoscopy History of umbilical hernia repair History of appendectomy History of sinus surgery Family History Mother No problems noted. Father Medical history unknown Daughter In good health Sister In good health Brother Lung cancer Social History (Updated 04/06/23 @ 15:34 by Jaz Myers MD) Household Members: Significant Other Housing: House Are you a primary healthcare administrative assistant to a significant other at home: No Do you presently have visiting nurse or other home services: No Alcohol intake: current Alcohol intake frequency: holidays/special occasions only Comment: 3x a year 2 drinks Patient Tobacco Use Status: Never used Tobacco e-Cigarette/Vaping Use: Never Used Second Hand Smoke Exposure: No service: No Current occupational status: employed Cognitive needs: No Hearing needs: No Vision needs: Yes Review of Systems Const Denies body aches and Denies fever(s) Eyes Denies change in vision ENT Denies change in voice Card Denies chest pain and Denies dyspnea on exertion Resp Denies chest congestion, Reports cough, Denies hemoptysis, Denies dyspnea on exertion and Denies wheezing GI Denies no additional complaints Musc Reports no additional complaints Skin/Breast Denies new lesions and Reports rash Neuro Reports no additional complaints Endo Denies flushing Sina/Lymph Denies easy bruising and Denies lymphadenopathy Aller/Immun Denies wheezing Physical Exam Vital Signs: Last Vital Signs Pulse 83 10/26/23 15:32 Pulse Ox 94 10/26/23 15:32 Oxygen Delivery Method Room Air 10/26/23 15:32 BMI result Body Mass Index 26.6 Const General: comfortable HEENT Head: Yes normocephalic Eyes General: appearance normal, both eyes and all related structures Neck Neck: Yes supple Chest Chest palpation & inspection: normal inspection of the chest Resp Effort & Inspection: normal respiratory effort Auscultation: no crackles and diminished lung sounds Cardio Rate: regular rate Rhythm: regular rhythm Heart sounds: S1 normal heart sound present and S2 normal heart sound present GI Auscultation: normal bowel sounds Skin General skin exam: no rashes or lesions noted Extrem General: Yes no clubbing, cyanosis or edema Assessment & Plan Assessment & Plan (1) Pulmonary fibrosis: Comment: 2011 Code(s): J84.10 - Pulmonary fibrosis, unspecified Category: Medical (2) Sarcoid: Comment: 2011 Code(s): D86.9 - Sarcoidosis, unspecified Category: Medical (3) Pulmonary nodules: Code(s): R91.8 - Other nonspecific abnormal finding of lung field Category: Medical (4) Pneumonitis: Code(s): J18.9 - Pneumonia, unspecified organism Category: Medical (5) Cough: Code(s): R05.9 - Cough, unspecified Category: Medical Qualifiers: Cough type: chronic Qualified Code(s): R05.3 - Chronic cough (6) 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: Code(s): Z79.52 - custodial (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 of systemic steroids Category: Medical (7) Bronchomalacia: Code(s): J98.09 - Other diseases of bronchus, not elsewhere classified Category: Medical Plan oxygen 2L/pulse, requesting POC for better portability from DME continue Prednisone 7.5mg stopped Mycophenalate continue Remicade CXR consider referral to [facility] sarcoid clinic consider OFEV to slow the progression of the pulmonary fibrosis CPT with acapella valve start Pseudophed and chlorphenarimine for upper airway cough syndrome F/U 2-3 months Orders: Orders XR chest 2V Today J84.10 - Pulmonary fibrosis, unspecified Medications: New chlorpheniramine maleate ER 12 mg PO BEDTIME PRN 30 tabs 6RF itching 30 days pseudoephedrine HCl ER 120 mg PO Q12H 60 tabs 1RF 30 days Coding Level of Care Code Est Pt Level 4 (41046) Diagnoses Pulmonary fibrosis J84.10 Sarcoid D86.9 Pulmonary nodules R91.8 Pneumonitis J18.9 Chronic cough R05.3 Cough type: chronic 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
== END 2023-10-26 15:50 | disposition home or self-care (01) ==
PROVIDERS: PCP Internal Medicine; Visit Provider Hospitalist
DX: J84.10 Pulmonary fibrosis, unspecified (principal); D86.9 Sarcoidosis, unspecified; R91.8 Other nonspecific abnormal finding of lung field; J18.9 Pneumonia, unspecified organism; R05.3 Chronic cough; Z79.52 Long term (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 of systemic steroids; J98.09 Other diseases of bronchus, not elsewhere classified
CPT/HCPCS: 99214

== ENCOUNTER → 2023-10-26 15:23 | Outpatient (BNVA) | payer OTHER, SELFPAY | PROVIDERS: PCP Internal Medicine; Visit Provider Hospitalist | DX: J84.10 Pulmonary fibrosis, unspecified (principal); D86.9 Sarcoidosis, unspecified; R91.8 Other nonspecific abnormal finding of lung field; J18.9 Pneumonia, unspecified organism; R05.3 Chronic cough; J98.09 Other diseases of bronchus, not elsewhere classified; Z79.52 Long term (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 of systemic steroids | CPT/HCPCS: 99212 ==

== ENCOUNTER 2023-11-04 15:45 | Outpatient (AMB) | payer OTHER, SELFPAY ==
--- NOTE | 2023-11-04 15:53 | MHC.OFFVISCO ---
Intake Intake Visit Reasons: Anticoagulation Allergies No Known Allergies [No Known Allergies*] Allergy (Verified 11/04/23 15:46) Medication List - Last Reconciled 11/04/23 by Robyn Ulloa RN chlorpheniramine maleate ER 12 mg PO BEDTIME PRN 30 days clotrimazole 1% 1 appl topical BID 4 weeks finasteride 5 mg PO DAILY infliximab (Remicade) 336 mg IV Q4W 12 months miconazole nitrate 2% (Zeasorb AF) 1 appl topical BID prednisolone acetate 1% (Pred Forte) 1 drp ophthalmic (eye) BEDTIME prednisone 7.5 mg PO BEDTIME pseudoephedrine HCl ER 120 mg PO Q12H 30 days triamcinolone acetonide 0.5% 1 appl topical DAILY warfarin (Jantoven) 4 mg See Protocol PO BEDTIME Nursing Note INR: 2.1- in therapeutic range of 2-3 Medications and supplements reviewed- no changes No changes in health, diet, medications, or supplements, Denies any signs and symptoms of bleeding or bruising or clotting. Bleeding, bruising, clotting discussed Nutritional guidance given Dose: 6mg x 1. 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
[2023-11-04 15:55] LABS: ~PT, ~INR - Anti Coag Clinic 2.1 (0.9-1.1)
== END 2023-11-04 16:02 | disposition home or self-care (01) ==
LOC: HO.ACS 15:45
PROVIDERS: PCP Internal Medicine; Visit Provider Internal Medicine
DX: Z79.01 Long term (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 of anticoagulants (principal)

== ENCOUNTER → 2023-11-04 15:45 | Outpatient (BNVA) | payer OTHER, SELFPAY | PROVIDERS: PCP Internal Medicine; Visit Provider Internal Medicine | DX: I82.402 Acute embolism and thrombosis of unspecified deep veins of left lower extremity (principal); Z79.01 Long term (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 of anticoagulants; Z51.81 Encounter for therapeutic drug level monitoring | CPT/HCPCS: 85610; 99211 ==

== ENCOUNTER 2023-11-05 14:29 | Outpatient (AMB) | payer OTHER, SELFPAY ==
--- NOTE | 2023-11-05 14:45 | A.OFFVIS_ITS ---
Intake Visit Reasons: BPH/ frequency/ enlarged prostate Intake Note: New patient is present for BPH/Enlarged Prostate/Frequency Urology Med: Tamsulosin (Ineffective for patient), Finasteride Antibiotic Allergies: None Blood Thinner: Warfarin PVR: 13 Allergies No Known Allergies [No Known Allergies*] Allergy (Verified 11/05/23 14:46) Medication List - Last Reconciled 11/05/23 by Ugo Cummings MD chlorpheniramine maleate ER 12 mg PO BEDTIME PRN 30 days clotrimazole 1% 1 appl topical BID 4 weeks doxazosin 4 mg PO BEDTIME 30 days finasteride 5 mg PO DAILY 90 days infliximab (Remicade) 336 mg IV Q4W 12 months miconazole nitrate 2% (Zeasorb AF) 1 appl topical BID prednisolone acetate 1% (Pred Forte) 1 drp ophthalmic (eye) BEDTIME prednisone 7.5 mg PO BEDTIME prednisone 10 mg PO DAILY 30 days pseudoephedrine HCl ER 120 mg PO Q12H 30 days triamcinolone acetonide 0.5% 1 appl topical DAILY warfarin (Jantoven) 4 mg See Protocol PO BEDTIME HPI Comments Details: Max is a very pleasant male. He is a patient of Dr. Myers. He seen for the following urologic conditions - lower urinary tract symptoms Initiate finasteride, trial doxazosin Lower urinary tract symptoms Progressive AUA symptom score initial evaluation 12, 4. Nocturia x3 which is very disruptive Prior trial tamsulosin with minimal impact Imaging 85 g prostate with effective bladder emptying Start finasteride and trial doxazosin Plan cystoscopy PFSH Medical History Pulmonary fibrosis ILD (interstitial lung disease) Bronchomalacia Right inguinal hernia Sarcoidosis Pulmonary nodules Obesity (BMI 30.0-34.9) Bleeding hemorrhoids Leg pain, right LFT elevation Hyperkalemia Glaucoma BPH (benign prostatic hyperplasia) Vitamin D deficiency Hypercholesterolemia Protein S deficiency DVT (deep venous thrombosis) Thrombocytopenia Surgical History History of right inguinal hernia repair Hx of lymph node biopsy Hx of colonoscopy History of umbilical hernia repair History of appendectomy History of sinus surgery Family History Mother No problems noted. Father Medical history unknown Daughter In good health Sister In good health Brother Lung cancer Social History Household Members: Significant Other Housing: House Are you a primary sub acute care nurse to a significant other at home: No Do you presently have visiting nurse or other home services: No Alcohol intake: current Alcohol intake frequency: holidays/special occasions only Comment: 3x a year 2 drinks Patient Tobacco Use Status: Never used Tobacco e-Cigarette/Vaping Use: Never Used Second Hand Smoke Exposure: No service: No Current occupational status: employed Cognitive needs: No Hearing needs: No Vision needs: Yes Review of Systems Const Denies chills and Denies fever(s) Card Reports no additional complaints and Denies syncope Resp Denies cough GI Denies abdominal pain and Denies heartburn Reports as per HPI and Denies change in libido Neuro Denies syncope Psych Denies change in libido Endo Denies change in libido Physical Exam Const General: cooperative, healthy appearing, comfortable and no acute distress Orientation/consciousness: patient oriented x3 HEENT Face and sinus: Yes normal facial exam Mouth: moist mucous membranes Neck Neck: Yes normal visual inspection, Yes full ROM and Yes trachea midline Chest Chest palpation & inspection: normal inspection of the chest Resp Effort & Inspection: normal respiratory effort, able to speak in complete sentences and no respiratory distress GI Inspection: Yes normal to inspection Back/Spine/Pelvis Cervical Spine: normal cervical lordosis Thoracic/Lumbar Spine: thoracic and lumbar spine normal to inspection Skin General skin exam: no rashes or lesions noted Neuro General: patient oriented x3, gait normal, tone normal and moves all extremities Extrem General: Yes normal to inspection and Yes capillary refill normal Office Procedures Post Void Residual Post Residual Void Post Void Residual (PVR): 13 [id number] Void Residual by ultrasound Assessment & Plan Assessment & Plan (1) Renal calculi: Code(s): N20.0 - Calculus of kidney Category: Medical (2) Renal calculus, left: Comment: 04/2021 Code(s): N20.0 - Calculus of kidney Category: Medical Plan Trial medications 2 month follow-up cystoscopy Orders: Orders AMB Post Void Residual by ultrasound Today N40.1 - Benign prostatic hyperplasia with lower urinary tract symptoms, R35.0 - Frequency of micturition Medications: New doxazosin 4 mg PO BEDTIME 30 days 30 tabs 1RF R35.0 - Frequency of micturition Patient Instructions: Imaging studies, laboratory and physical exam results were discussed and reviewed in detail. No major barriers to patient understanding were identified. An opportunity to ask questions regarding the treatment plan was provided. All questions were answered. The patient expressed understanding and agreement with the above treatment plan. The patient is aware they should contact our office by phone for worsening of th eir current condition or the appearance of new urologic symptoms. Compliance is encouraged with any medications and followup testing that is ordered. It is a privilege to participate in the urologic care of your patient. If you have any questions or concerns regarding treatment for the above conditions, or other urologic issues, please do not hesitate to contact me. The office telephone contact is [phone]. This note is constructed using voice recognition software. While every effort has been made to ensure accuracy manager credit errors may have been included. Yours sincerely, Dr Ugo Cummings MD, [facility] - Urology Providers of Expert, Compassionate Care for the Genitourinary System Coding Level of Care Code New Pt Level 4 (09161) Diagnoses Renal calculi N20.0 Renal calculus, left N20.0 CPT Codes Post Residual Void - PVR CPT Code: 25634-Emtl Void Residual by ultrasound ([id number])
== END 2023-11-05 15:04 | disposition home or self-care (01) ==
PROVIDERS: PCP Internal Medicine; Visit Provider Urology
DX: N20.0 Calculus of kidney (principal)
CPT/HCPCS: 99204

== ENCOUNTER → 2023-11-05 14:29 | Outpatient (BNVA) | payer OTHER, SELFPAY | PROVIDERS: PCP Internal Medicine; Visit Provider Urology | DX: N20.0 Calculus of kidney (principal) | CPT/HCPCS: 51798; 99202 ==

== ENCOUNTER 2023-11-16 15:52 | Outpatient (AMB) | payer OTHER, SELFPAY ==
[2023-11-16 16:01] LABS: Prothrombin Time Whole Bld POC 32.7 sec (11.1-13.5); ~PT, ~INR - Anti Coag Clinic 2.7 (0.9-1.1)
--- NOTE | 2023-11-16 16:13 | MHC.OFFVISCO ---
Intake Intake Visit Reasons: Anticoagulation Allergies No Known Allergies [No Known Allergies*] Allergy (Verified 11/16/23 15:54) Medication List - Last Reconciled 11/16/23 by Marcia Dave RN chlorpheniramine maleate ER 12 mg PO BEDTIME PRN 30 days clotrimazole 1% 1 appl topical BID 4 weeks doxazosin 4 mg PO BEDTIME 90 days finasteride 5 mg PO DAILY 90 days infliximab (Remicade) 336 mg IV Q4W 12 months levofloxacin 500 mg PO DAILY miconazole nitrate 2% (Zeasorb AF) 1 appl topical BID prednisolone acetate 1% (Pred Forte) 1 drp ophthalmic (eye) BEDTIME prednisone 7.5 mg (1.5 x 5 mg) PO BEDTIME 30 days triamcinolone acetonide 0.5% 1 appl topical DAILY warfarin (Jantoven) 4 mg See Protocol PO BEDTIME Nursing Note Pt came to clinic today after his infusing to tell [facility] that he is on antbx - he was taken in to assess antbx on his INR - and while here, so he would not have to come out again, breathing shallow hard to get in air on O2 NC- states will go to ER if any worse tonight. 2 days of antbx left on levofloxacin that can raise the INR . He has decreased energy and appetite- able to speak while taking deep breaths , able to ambulate down villavicencio on own, INR: 2.7 in therapeutic range Denies any signs and symptoms of bleeding or bruising or clotting. Bleeding, bruising, clotting discussed Nutritional guidance given - eat a mix Dose:decrease to 4MG DAILY F/U INR: 1 WEEK Patient verbalizes understanding of instructions given Anti-Coag Initial Assessment Social Hx Patient Tobacco Use Status: Never used Tobacco alcohol intake: current Alcohol intake frequency: holidays/special occasions only Coding Level of Care Code Est Patient Level 1 Diagnoses Current use of anticoagulant therapy Z79.01 Results AMB INR Fingerstick AMB INR Fingerstick 2.7 Last Edit by Marcia Dave RN on 11/16/23 16:03 MNAUAL ENTRY Assessment & Plan Assessment & Plan (1) Current use of anticoagulant therapy: 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
== END 2023-11-16 16:20 | disposition home or self-care (01) ==
LOC: HO.ACS 15:52
PROVIDERS: PCP Internal Medicine; Visit Provider Internal Medicine
DX: Z79.01 Long term (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 of anticoagulants (principal)

== ENCOUNTER 2023-11-24 08:14 | Outpatient (AMB) | payer OTHER, SELFPAY ==
[2023-11-24 08:30] LABS: Prothrombin Time Whole Bld POC 41.4 sec (11.1-13.5); ~PT, ~INR - Anti Coag Clinic 3.5 (0.9-1.1)
--- NOTE | 2023-11-24 08:34 | MHC.OFFVISCO ---
Intake Intake Visit Reasons: Anticoagulation Allergies No Known Allergies [No Known Allergies*] Allergy (Verified 11/24/23 08:17) Medication List - Last Reconciled 11/24/23 by Marcia Dave RN clotrimazole 1% 1 appl topical BID 4 weeks doxazosin 4 mg PO BEDTIME 90 days finasteride 5 mg PO DAILY 90 days infliximab (Remicade) 336 mg IV Q4W 12 months miconazole nitrate 2% (Zeasorb AF) 1 appl topical BID prednisolone acetate 1% (Pred Forte) 1 drp ophthalmic (eye) BEDTIME prednisone mg PO prednisone 7.5 mg (1.5 x 5 mg) PO BEDTIME 30 days triamcinolone acetonide 0.5% 1 appl topical DAILY warfarin (Jantoven) 4 mg See Protocol PO BEDTIME Nursing Note INR 3.7 out of therapeutic range Medications and supplements reviewed Patient status: pt went to ER 11/16/23 after ACS visit due to increase sob, found to be +covid - he was already being treated for pneumonia on levofloxacin- he competed 11/18/23, he was rx Prednisone 60mg tappering dose now at 40m to go to 30mg tomorrow x 2 days then 20mg x 2 days then 10mg x 2 days then 7.5mg daily, feeling a little better Medications or supplements: no other changes Diet: decreased appetite Denies any signs and symptoms of bleeding or clotting or unusual bruising Bleeding, bruising, clotting discussed Nutritional guidance given: greens - he likes avocado and green tea Dose: 2mg today then 4mg rest of this week, then 4mg x 6 days/ 6mg x 1 day F/U INR Date: 12/03/23 prior his PCP visit Patient verbalizing understanding of instructions given. 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
== END 2023-11-24 08:40 | disposition home or self-care (01) ==
LOC: HO.ACS 08:14
PROVIDERS: PCP Internal Medicine; Visit Provider Internal Medicine
DX: Z79.01 Long term (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 of anticoagulants (principal)

== ENCOUNTER → 2023-11-24 08:14 | Outpatient (BNVA) | payer OTHER, SELFPAY | PROVIDERS: PCP Internal Medicine; Visit Provider Internal Medicine | DX: I82.402 Acute embolism and thrombosis of unspecified deep veins of left lower extremity (principal); Z51.81 Encounter for therapeutic drug level monitoring; Z79.01 Long term (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 of anticoagulants | CPT/HCPCS: 85610; 99211 ==

== ENCOUNTER 2023-12-03 08:20 | Outpatient (AMB) | payer OTHER, SELFPAY ==
--- NOTE | 2023-12-03 08:24 | A.OFFPC_ITS ---
Vital Signs 12/03/23 08:27 Height 5 ft 4 in Weight 155 lb 4 oz BMI 26.6 BP 120/70 Blood Pressure Location Lt brachial Position Sitting Pulse 93 Pulse Source Pulse Oximeter Pulse Oximetry (%) 97 Oxygen Delivery Method Nasal Cannula Intake Visit Reasons: Discharge 11/19 [facility] Intake Note: Patient is here for hospital discharge follow up. Patient was discharged from [facility] on 11/20/23. Dental Scheduler Required: No Manager Public: Not Required per policy Accompanied by: Self / Same As Patient Allergies No Known Allergies [No Known Allergies*] Allergy (Verified 12/03/23 09:04) Tobacco use date assessed: 12/03/23 Dental Screening Dental Screen Date: 07/09/23 HPI HPI Comments History of Present Illness Details 58 y/o male patient who presents to the clinic today for HDF. He was seen at [facility] on 11/16/23 and admitted for Sarcoidosis. He was discharge on 11/20/23. He follows with [facility] Da Silva. Has scheduled appointment with him on 01/2024. Today Pt reports that his Portable Oxygen Tank runs out of battery Power quickly (usually lasts only 1 hour). Pt wondering if you could another Tank. Will Message Pulmonology for this. In the course of Hospital stay, he had Bronc done that showed Lesion on right vocal cord. Recommended ENT f/u. 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 He is currently taking Prednisone until his next appointment with Pulmonology. [facility] Medical History Pulmonary fibrosis ILD (interstitial lung disease) Bronchomalacia Right inguinal hernia Sarcoidosis Pulmonary nodules Obesity (BMI 30.0-34.9) Bleeding hemorrhoids Leg pain, right LFT elevation Hyperkalemia Glaucoma BPH (benign prostatic hyperplasia) Vitamin D deficiency Hypercholesterolemia Protein S deficiency DVT (deep venous thrombosis) Thrombocytopenia Surgical History History of right inguinal hernia repair Hx of lymph node biopsy Hx of colonoscopy History of umbilical hernia repair History of appendectomy History of sinus surgery Family History Mother No problems noted. Father Medical history unknown Daughter In good health Sister In good health Brother Lung cancer Social History Household Members: Significant Other Housing: House Are you a primary home health care case manager to a significant other at home: No Do you presently have visiting nurse or other home services: No Alcohol intake: current Alcohol intake frequency: holidays/special occasions only Comment: 3x a year 2 drinks Patient Tobacco Use Status: Never used Tobacco e-Cigarette/Vaping Use: Never Used Second Hand Smoke Exposure: No service: No Current occupational status: employed Cognitive needs: No Hearing needs: No Vision needs: Yes Questionnaire Thrive Questionnaire Date Thrive assessed: 10/15/23 SANDRA-7 AMB Questionnaire SANDRA-7 Date SANDRA - 7 assessed: 07/09/23 Source: Developed by Drs. Mason Burton, Irma Morales, Waldemar Mchugh and colleagues, with an educational dc from [employer]. Review of Systems Const All systems reviewed & are unremarkable except as noted in HPI and below Physical exam (Primary Care) Vital Signs: Last Vital Signs Pulse 93 12/03/23 08:27 BP 120/70 12/03/23 08:27 Pulse Ox 97 12/03/23 08:27 Oxygen Delivery Method Nasal Cannula 12/03/23 08:27 BMI result Body Mass Index 26.6 Tobacco/Smoking Status: Tobacco use Status Tobacco use date assessed 12/03/23 12/03/23 08:32 Patient Tobacco Use Status Never used Tobacco 12/03/23 08:32 e-Cigarette/Vaping Use Never Used 12/03/23 08:32 Thrive Assessment: Date of Thrive Assessment Date Thrive assessed 10/15/23 12/03/23 08:32 Const General: no acute distress and other (Wearing NC for Oxygen) Orientation/consciousness: patient oriented x3 Resp Effort & Inspection: labored Cardio Heart sounds: S1 normal heart sound present and S2 normal heart sound present Neuro General: patient oriented x3, gait normal and moves all extremities Psych Speech and movement: Normal speech and movement present Vital Signs: Last Vital Signs Pulse 93 12/03/23 08:27 BP 120/70 12/03/23 08:27 Pulse Ox 97 12/03/23 08:27 Oxygen Delivery Method Nasal Cannula 12/03/23 08:27 BMI result Body Mass Index 26.6 Const General: no acute distress and other (Wearing NC for Oxygen) Orientation/consciousness: patient oriented x3 Resp Effort & Inspection: labored Cardio Heart sounds: S1 normal heart sound present and S2 normal heart sound present Neuro General: patient oriented x3, gait normal and moves all extremities Psych Speech and movement: Normal speech and movement present Assessment and Plan Assessment & Plan (1) Sarcoidosis: Code(s): D86.9 - Sarcoidosis, unspecified Plan: F/U with Pulmonology as scheduled. Will send message to Dr. Da Silva regarding his Oxygen Tank problems. I also informed Pt that usually the Portable Tanks runs for only 1 hour before battery dies. Continue on Prednisone as directed. (2) Lesion of vocal cord: Code(s): J38.3 - Other diseases of vocal cords Plan: Placed referral to ENT Orders: Referrals Ear/Nose/Throat Referral J38.3 - Other diseases of vocal cords Coding Level of Care Code Est Pt Level 4 (92181) Diagnoses Sarcoidosis D86.9 Lesion of vocal cord J38.3 Comment Spent 20 minutes reviewing hospital notes and Exam.
[2023-12-03 08:27] VITALS: BP 120/70; PULSE 93; O2SAT 97; BMI 26.6
== END 2023-12-03 08:49 | disposition home or self-care (01) ==
PROVIDERS: PCP Internal Medicine; Visit Provider Nurse Practitioner Family
DX: D86.9 Sarcoidosis, unspecified (principal); J38.3 Other diseases of vocal cords
CPT/HCPCS: 99214

== ENCOUNTER 2023-12-03 09:01 | Outpatient (AMB) | payer OTHER, SELFPAY ==
--- NOTE | 2023-12-03 09:08 | MHC.OFFVISCO ---
Intake Intake Visit Reasons: Anticoagulation Allergies No Known Allergies [No Known Allergies*] Allergy (Verified 12/03/23 09:04) Medication List - Last Reconciled 12/03/23 by Robyn Ulloa RN clotrimazole 1% 1 appl topical BID 4 weeks doxazosin 4 mg PO BEDTIME 90 days finasteride 5 mg PO DAILY 90 days infliximab (Remicade) 336 mg IV Q4W 12 months miconazole nitrate 2% (Zeasorb AF) 1 appl topical BID prednisolone acetate 1% (Pred Forte) 1 drp ophthalmic (eye) BEDTIME prednisone 7.5 mg (1.5 x 5 mg) PO BEDTIME 30 days triamcinolone acetonide 0.5% 1 appl topical DAILY warfarin (Jantoven) 4 mg See Protocol PO BEDTIME Nursing Note INR 4.7-? out of therapeutic range of 2-3 Medications and supplements reviewed Patient status: pt s/p covid 11/16/23, on cont oxygen 2 liters Medications or supplements: had been on antibiotics and prednisone taper , now on prednisone 7.5mg daily Diet: fair, ensure one can qod Denies any signs and symptoms of bleeding or clotting or unusual bruising - pt aware high risk for bleeding, avoid high risk activities Bleeding, bruising, clotting discussed Nutritional guidance given: eat greens to lower, no reds for 2-3 days Dose: hold warfarin today, 2mg tomm then cont 4mg x 6, 6mg x 1 F/U INR Date : 1 week?? Patient verbalizing understanding of instructions given. 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
[2023-12-03 09:09] LABS: Prothrombin Time Whole Bld POC 56.7 sec (11.1-13.5); ~PT, ~INR - Anti Coag Clinic 4.7 (0.9-1.1)
== END 2023-12-03 09:17 | disposition home or self-care (01) ==
LOC: HO.ACS 09:01
PROVIDERS: PCP Internal Medicine; Visit Provider Internal Medicine
DX: Z79.01 Long term (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 of anticoagulants (principal)

== ENCOUNTER → 2023-12-03 09:01 | Outpatient (BNVA) | payer OTHER, SELFPAY | PROVIDERS: PCP Internal Medicine; Visit Provider Internal Medicine | DX: I82.402 Acute embolism and thrombosis of unspecified deep veins of left lower extremity (principal); Z79.01 Long term (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 of anticoagulants; Z51.81 Encounter for therapeutic drug level monitoring | CPT/HCPCS: 85610; 99211 ==

== ENCOUNTER 2023-12-08 10:07 | Outpatient (REF) | payer OTHER, SELFPAY ==
--- NOTE | ~2023-12-08 | XR_ITS ---
EXAMINATION: XR CHEST CLINICAL INFORMATION: Pneumonia, unspecified organism. COMPARISON: 08/05/2023 CT chest. 05/21/2022 x-ray chest. TECHNIQUE: 2 views of the chest were obtained. FINDINGS: Lung volumes are low. Postsurgical changes with surgical clips at the right lung apex. Stable cardiomediastinal silhouette. Similar marked asymmetric elevation of the right lung base. No pleural effusion. Degenerative changes in the thoracic spine. Bilateral diffuse bronchiectasis with bronchial wall thickening, reticular markings and emphysematous changes were better characterized on prior CT scan. Bilateral perihilar and bibasilar hazy opacities, with possible basilar consolidations. Differential considerations include edema, atelectasis and/or an infectious/inflammatory process in the appropriate clinical setting. XR/XR chest 2V IMPRESSION: 1. Bilateral diffuse bronchiectasis with bronchial wall thickening, reticular markings and emphysematous changes were better characterized on prior CT scan. 2. Bilateral perihilar and bibasilar hazy opacities, with possible basilar consolidations. Differential considerations include edema, atelectasis and/or an infectious/inflammatory process in the appropriate clinical setting. This study was presented to me on December 27 2023 for interpretation. PSA staff will provide results to referring provider at this time.
== END 2023-12-08 10:08 | disposition home or self-care (01) ==
LOC: HO.XRAY 10:07
PROVIDERS: PCP Internal Medicine; Visit Provider Hospitalist
DX: J18.9 Pneumonia, unspecified organism (principal); J84.10 Pulmonary fibrosis, unspecified; D86.9 Sarcoidosis, unspecified; R91.8 Other nonspecific abnormal finding of lung field; R05.3 Chronic cough
CPT/HCPCS: 71046; 99212

== ENCOUNTER 2023-12-08 10:07 | Outpatient (AMB) | payer OTHER, SELFPAY ==
--- NOTE | 2023-12-08 10:22 | MHC.OFFVIS ---
Vital Signs 12/08/23 10:23 Height 5 ft 4 in Weight 155 lb BMI 26.6 Pulse 90 Pulse Source Pulse Oximeter Pulse Oximetry (%) 94 Oxygen Delivery Method Room Air Comment 2 Liters Oxygen(J&L) Intake Visit Reasons: covid pneumonia Distribution A Class Lineman Required: No Allergies No Known Allergies [No Known Allergies*] Allergy (Verified 12/08/23 10:22) Do you need a note to return to daycare/school/sports/work: No HPI Comments Details: The patient is a 58-year-old gentleman with a known history of sarcoidosis. 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 At that point he also had a rash on the face. The patient was noted to have lupus pernio. He did have a biopsy-proven sarcoidosis. The patient did have a CT scan of the chest demonstrating pulmonary nodules and also lymphadenopathy. Although the diagnosis of sarcoid was made based on the skin biopsy. I do not have those results is all per the patient. The patient then was followed by a local wind energy project manager. He was placed on prednisone. Ultimately more recently than that the patient start having worsening shortness of breath and cough. Was then placed on methotrexate up to 8 tablets of the 2.5 mg weekly. However after he started the methotrexate he has been noticing worsening cough and shortness of breath. He did have a recent chest x-ray done at the [facility] which I personally reviewed. It appears that he has a chronically elevated right hemidiaphragm but now appears to have more hazy opacities bilaterally suggesting pneumonitis. I did compare that to his previous x-ray from October which she did not have the degree of pneumonitis as he has now. Therefore I am concerned that he is having some adverse effects of the methotrexate. Assess as far as I know the only involvement of the sarcoid has been his lungs his skin and also the uveitis. 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 It is likely that the thrombotic issues are also related to sarcoidosis. He denies any other involvement of any other end-organ. We did review his blood work his total bili is a little elevated and he has had issues with liver in the past. But is hard to know for sure if is related to sarcoid any other etiology. The patient complains that his cough is very significant. He had call the on-call physician was given Tesadriana Kraus without any significant improvement. For now while we deal with his active sarcoid issue go ahead and give her some codeine cough syrup patient does use state Travis often at nighttime to make sure that he can stop coughing. 08/03/2022 the patient is here for a pulmonary follow-up visit. He still the same. He still complains of cough and some chest congestion. The mucus is yellowish and whitish in color. [id number] severity. Did have worse at nighttime. The patient did switch over to mycophenolate from methotrexate. Seems to be tolerating it although still low dose of 100 mg twice a day. Was able to cut down the prednisone from 20 mg to 10 mg which is reassuring. Will continue to optimize his sarcoid therapy by increasing the mycophenolate to 1000 mg twice a day and also decreasing the prednisone some 0.5 mg. He also will going to go very slowly to make sure that he is able to decrease her dose effectively. We did review his CT scan of the chest demonstrating significant interstitial lung disease and pulmonary nodules when compared to his CT scan from 2014. He also had pulmonary function studies demonstrating a moderate restrictive ventilatory defect. In part he does have an elevated right hemidiaphragm that is resulting in diminished lung capacity. At this point will continue to maintain him on therapy to make sure that he does not have any progression of the scarring if is due to the sarcoidosis. 11/06/2022 the patient is here for a pulmonary follow-up visit. He continues with his ongoing chest congestion and cough. Moderate severity. Worse at nighttime. Has not responded to the respiratory therapy or the immunosuppressive therapy. He does bring up chest congestion although have been able to get a culture. We did review his CT scan of the chest. The patient does have normal findings. Based on his ongoing cough and his lack of response to his current therapy will plan to perform bronchoscopy. He does have pertinent S deficiency with hypercoagulable state and currently on Coumadin. I will be working with the Coumadin clinic in order to get him ready for the procedure. 01/29/2023 the patient is here for apulmonary follow up visit. Complaining that the cough is no better. Moderate in severity. Patient did have significant evidence of bronchomalacia. This is likely contributing to his significant cough. He also had moderate mucoid secretions that were suction. Patient is cultures were all negative. His endobronchial biopsies were negative for any sarcoidosis. Unfortunate patient continues to cough. Explained to him that the issue is the collapsing of the airways. At this point will start him on CPT with the Acapella valve to help him clear secretions. The patient will continue with current respiratory therapy. He will start cough suppressant. 05/06/2023 the patient has a telehealth visit today. He has not recovering from a viral syndrome on home. He is feeling better. He continues on the prednisone 7.5 mg daily and also continues on the mycophenolate. Seems to be tolerating therapy well and his blood sugars have been okay. In regards of his respiratory symptoms he has been coughing a little more secondary to the viral syndrome her [id number]-[id number] severity. Otherwise feels well he does need any additional therapies at this time. Will plan to repeat his CT scan in 3 months' time year from his last 1 to see the progression of his underlying nodular densities and interstitial lung disease. 08/13/2023 the patient is here for pulmonary follow-up visit. The patient continues have a cough. The cough is moderate severe. He is tried multiple medications without any significant improvement. In regards of the sarcoidosis the patient has been on the chronic prednisone and also has been on mycophenolate 2 g a day. He is noticed also worsening dyspnea on exertion. Pchv-qy-yvhccapt severity. He did have a CT scan of the chest which we personally reviewed. It appears it has interval worsening of the pulmonary fibrosis which is concerning. He is already on high dose of mycophenolate and on chronic prednisone. Will go ahead and give him a prednisone taper to see if we can improve the symptoms. In the meantime we talked about other alternative therapies such as Remicade. The patient is open to trying these medications. Will go ahead and request blood work to make sure that he can start the therapy as soon as possible. I also did offer him a 2nd opinion at the sarcoid Clinic at [facility]. However, the patient is concerned about the drive. Will continue to discuss that. Specially in view of the worsening fibrosis. We did go for 6 minute walk test the patient did desaturate down to 87% with activity on room air. Did qualify for a conserving device at 2 L pulse. Will go ahead and request a concentrator and portable oxygen concentrator through [facility]. 10/26/2023 the patient is here for pulmonary follow-up visit. Overall the patient has been doing well. He is still coughing though. Moderate severity. Denies any shortness of breath. He was switched over to Remicade because he continued to have progression of the interstitial lung disease even on high doses of the mycophenolate. He seems to be tolerating medication well infusions are going well without any adverse effects. Will plan to repeat an x-ray in the next few months to see if there is any progression. Although his respiratory exam is indeed better this time. His cough is mainly in upper airway cough syndrome. Will try to treat him with Sudafed and also 1st generation antihistamines to see if we can settle down the cough. He is tried multiple other vsga-ekk-mubgnuo medications in prescription medication without any significant improvement. Follow-up in 3 months. 12/08/2023 the patient is here for hospital follow-up visit. The patient was developing worsening respiratory symptoms and he was admitted to [facility]. He had a CT scan of the chest there which I do not have available but the patient described it as rito out. Likely significant diffuse pneumonitis. The patient initially tested negative for COVID on the nasal swab but he did have a bronchoscopy that were positive for COVID. Therefore he was treated for COVID pneumonitis and pneumonia. He was placed on oxygen. He is prednisone was increased from 7.5 2 higher amount. He was subsequently discharged on a prednisone taper. The patient is still having hard time breathing he is using oxygen. We did give him a portable oxygen concentrator to use after, but, the patient has had a hard time with it. Since that is working. We did call the DME so they can look at it. In the meantime we placed him on oxygen which did help. The patient is still working. He has hard time not working and therefore he needs to have the oxygen order to continue his working activities. He did have a chest x-ray today which I personally reviewed demonstrating still persistent elevation of the right hemidiaphragm although that is chronic interstitial changes which appeared to be chronic. And some degree of ill-defined opacities in the upper lung zones which is new but since be getting better. His baseline x-ray was not normal on the 1st place. He has been on Remicade. His next dose is sometime in January. Will follow-up in a couple weeks. The meantime he is going to increase the prednisone to 20 mg from his baseline 7.5 to try to decrease the inflammatory changes. [facility] Medical History (Updated 12/08/23 @ 22:16 by Chaparro Da Silva MD) Pneumonia due to COVID-19 virus Pulmonary fibrosis ILD (interstitial lung disease) Bronchomalacia Right inguinal hernia Sarcoidosis Pulmonary nodules Obesity (BMI 30.0-34.9) Bleeding hemorrhoids Leg pain, right LFT elevation Hyperkalemia Glaucoma BPH (benign prostatic hyperplasia) Vitamin D deficiency Hypercholesterolemia Protein S deficiency DVT (deep venous thrombosis) Thrombocytopenia Surgical History History of right inguinal hernia repair Hx of lymph node biopsy Hx of colonoscopy History of umbilical hernia repair History of appendectomy History of sinus surgery Family History Mother No problems noted. Father Medical history unknown Daughter In good health Sister In good health Brother Lung cancer Social History Household Members: Significant Other Housing: House Are you a primary pharmacist critical care to a significant other at home: No Do you presently have visiting nurse or other home services: No Alcohol intake: current Alcohol intake frequency: holidays/special occasions only Comment: 3x a year 2 drinks Patient Tobacco Use Status: Never used Tobacco e-Cigarette/Vaping Use: Never Used Second Hand Smoke Exposure: No service: No Current occupational status: employed Cognitive needs: No Hearing needs: No Vision needs: Yes Review of Systems Const Denies body aches and Denies fever(s) Eyes Denies change in vision ENT Denies change in voice Card Denies chest pain, Reports dyspnea and Reports dyspnea on exertion Resp Denies chest congestion, Reports cough, Denies hemoptysis, Reports dyspnea, Reports dyspnea on exertion and Denies wheezing GI Denies no additional complaints Musc Reports no additional complaints Skin/Breast Denies new lesions and Reports rash Neuro Reports no additional complaints Endo Denies flushing Sina/Lymph Denies easy bruising and Denies lymphadenopathy Aller/Immun Denies wheezing Physical Exam Vital Signs: Last Vital Signs Pulse 90 12/08/23 10:23 Pulse Ox 94 12/08/23 10:23 Oxygen Delivery Method Room Air 12/08/23 10:23 BMI result Body Mass Index 26.6 Const General: comfortable HEENT Head: Yes normocephalic Eyes General: appearance normal, both eyes and all related structures Neck Neck: Yes supple Chest Chest palpation & inspection: normal inspection of the chest Resp Effort & Inspection: normal respiratory effort Auscultation: no crackles and diminished lung sounds Cardio Rate: regular rate Rhythm: regular rhythm Heart sounds: S1 normal heart sound present and S2 normal heart sound present GI Auscultation: normal bowel sounds Skin General skin exam: no rashes or lesions noted Extrem General: Yes no clubbing, cyanosis or edema Assessment & Plan Assessment & Plan (1) Pneumonitis: Code(s): J18.9 - Pneumonia, unspecified organism Category: Medical (2) Pulmonary fibrosis: Comment: 2011 Code(s): J84.10 - Pulmonary fibrosis, unspecified Category: Medical (3) Sarcoid: Comment: 2011 Code(s): D86.9 - Sarcoidosis, unspecified Category: Medical (4) Pulmonary nodules: Code(s): R91.8 - Other nonspecific abnormal finding of lung field Category: Medical (5) Cough: Code(s): R05.9 - Cough, unspecified Category: Medical Qualifiers: Cough type: chronic Qualified Code(s): R05.3 - Chronic cough (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 POC alarming and not working. DME will be evaluating it increase Prednisone 20mg continue Remicade, net dose in January CXR consider OFEV to slow the progression of the pulmonary fibrosis CPT with acapella valve Pseudophed and chlorphenarimine for upper airway cough syndrome F/U 2-3 weeks Orders: Orders XR chest 2V Today J18.9 - Pneumonia, unspecified organism Coding Level of Care Code Est Pt Level 5 (43860) Diagnoses Pneumonitis J18.9 Pulmonary fibrosis J84.10 Sarcoid D86.9 Pulmonary nodules R91.8 Chronic cough R05.3 Cough type: chronic longterm systemic steroid user Z79.52 Bronchomalacia J98.09 Pneumonia due to COVID-19 virus U07.1; J12.82 Time Spent (min) 30
[2023-12-08 10:23] VITALS: PULSE 90; O2SAT 94; BMI 26.6
== END 2023-12-08 11:28 | disposition home or self-care (01) ==
PROVIDERS: PCP Internal Medicine; Visit Provider Hospitalist
DX: J12.82 Pneumonia due to coronavirus disease 2019 (principal); J84.10 Pulmonary fibrosis, unspecified; D86.9 Sarcoidosis, unspecified; R91.8 Other nonspecific abnormal finding of lung field; Z79.52 Long term (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 of systemic steroids; J98.09 Other diseases of bronchus, not elsewhere classified
CPT/HCPCS: 99214

== ENCOUNTER → 2023-12-09 15:39 | Outpatient (BNVA) | payer OTHER, SELFPAY | PROVIDERS: PCP Internal Medicine; Visit Provider Internal Medicine | DX: I82.402 Acute embolism and thrombosis of unspecified deep veins of left lower extremity (principal); Z79.01 Long term (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 of anticoagulants; Z51.81 Encounter for therapeutic drug level monitoring | CPT/HCPCS: 85610; 99211 ==

== ENCOUNTER 2023-12-16 15:44 | Outpatient (AMB) | payer OTHER, SELFPAY ==
[2023-12-16 15:50] LABS: ~PT, ~INR - Anti Coag Clinic 4.3 (0.9-1.1)
--- NOTE | 2023-12-16 15:59 | MHC.OFFVISCO ---
Intake Intake Visit Reasons: Anticoagulation Allergies No Known Allergies [No Known Allergies*] Allergy (Verified 12/16/23 15:45) Medication List - Last Reconciled 12/16/23 by Mami Springer RN clotrimazole 1% 1 appl topical BID 4 weeks doxazosin 4 mg PO BEDTIME 90 days finasteride 5 mg PO DAILY 90 days infliximab (Remicade) 336 mg IV Q4W 12 months miconazole nitrate 2% (Zeasorb AF) 1 appl topical BID Oxygen Home Use As directed prednisolone acetate 1% (Pred Forte) 1 drp ophthalmic (eye) BEDTIME prednisone 7.5 mg (1.5 x 5 mg) PO BEDTIME 30 days prednisone 20 mg PO triamcinolone acetonide 0.5% 1 appl topical DAILY warfarin (Jantoven) 4 mg See Protocol PO BEDTIME Nursing Note INR 4.3?out of therapeutic range of 2-3 Medications and supplements reviewed. Continues on Prednisone 20mg daily Patient status: pt to ACS with portable O2. Has appt w/ manager commercial in 2 weeks. Medications or supplements: no changes Diet: usual diet for pt. Takes green ensure which is a plant based protein drink that contains 30% daily value of Vit K. Pt states he will increase to taking this everyday. Denies any signs and symptoms of bleeding or clotting or unusual bruising Bleeding, bruising, clotting discussed Nutritional guidance given: to have the green ensure and other foods that he likes from the food list that will lower the INR. Dose: hold todays dose and then starting on 12/19/23 weekly dose decrease to 4mg X 6 days and 2mg X 1 day F/U INR Date : 6 days?? Patient verbalizing understanding of instructions given. Anti-Coag Initial Assessment Social Hx Patient Tobacco Use Status: Never used Tobacco alcohol intake: current Alcohol intake frequency: holidays/special occasions only Coding Level of Care Code Est Patient Level 1 Diagnoses Current use of anticoagulant therapy Z79.01 Assessment & Plan Assessment & Plan (1) Current use of anticoagulant therapy: Code(s): Z79.01 - [facility] (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
== END 2023-12-16 16:12 | disposition home or self-care (01) ==
LOC: HO.ACS 15:44
PROVIDERS: PCP Internal Medicine; Visit Provider Internal Medicine
DX: Z79.01 Long term (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 of anticoagulants (principal)

== ENCOUNTER → 2023-12-16 15:44 | Outpatient (BNVA) | payer OTHER, SELFPAY | PROVIDERS: PCP Internal Medicine; Visit Provider Internal Medicine | DX: I82.402 Acute embolism and thrombosis of unspecified deep veins of left lower extremity (principal); Z79.01 Long term (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 of anticoagulants; Z51.81 Encounter for therapeutic drug level monitoring | CPT/HCPCS: 85610; 99211 ==

== ENCOUNTER 2023-12-22 07:53 | Outpatient (REF) | payer OTHER, SELFPAY ==
[2023-12-22 08:28] LABS: MANUAL DIFF FLAG NO
[2023-12-22 08:30] LABS: Basophils Percent Auto 0.2 % (0-2); Eosinophils Percent Auto 0.2 % (0-4); Hematocrit 46.6 % (42.0-52.0); Hemoglobin 15.6 g/dl (14.0-18.0); Imm Gran Abs Auto 0.03 X10*3/uL (0.00-0.03); Imm Gran Pct Auto 0.5 % (0.0-0.4); Lymphocytes Percent Auto 16.4 % (20-40); Mean Corpuscular HGB Conc 33.5 g/dl (31.0-36.0); Mean Corpuscular Hemoglobin 28.6 pg (27.0-33.0); Mean Corpuscular Volume 85.5 fL (80.0-98.0); Mean Platelet Volume 10.4 fL (9.4-12.4); Monocytes Absolute Auto 0.5 X10*3/uL (0.1-1.2); Monocytes Percent Auto 7.5 % (2-11); Neutrophils Absolute Auto 4.7 x10*3/uL (2.0-8.3); Neutrophils Percent Auto 75.2 % (45-73); Platelet Count 144 X10*3/uL (160-400); Red Blood Count 5.45 X10*6/uL (4.60-5.80); Red Cell Distribution Width 13.8 % (11.0-16.0); White Blood Count 6.2 X10*3/uL (4.8-10.8)
[2023-12-22 09:07] LABS: Alanine Aminotransferase 24 U/L (0-40); Albumin Level 3.8 g/dL (3.5-5.0); Alkaline Phosphatase 81 U/L (39-117); Anion Gap 10 (12-20); Aspartate Amino Transferase 17 U/L (5-37); Bilirubin Direct 0.4 mg/dL (0.0-0.5); Bilirubin Total 1.7 mg/dL (0.0-1.0); Blood Urea Nitrogen 18 mg/dL (9-16); Calcium 9.5 mg/dL (8.4-10.2); Carbon Dioxide 33 mmol/L (22-29); Chloride 101 mmol/L (96-108); Estimated Glomerular Filt Rate > 60; Glucose Random 129 mg/dL (60-115); Potassium 5.3 mmol/L (3.3-5.1); Sodium 139 mmol/L (135-145); Total Protein 7.9 g/dL (6.5-8.0)
[2023-12-28 15:57] LABS: Angiotensin Converting Enzyme 33.5 U/L (9-67)
== END 2023-12-22 07:54 | disposition home or self-care (01) ==
LOC: HO.LAB 07:53
PROVIDERS: PCP Internal Medicine; Visit Provider Hospitalist
DX: J84.9 Interstitial pulmonary disease, unspecified (principal); R05.9 Cough, unspecified; J98.09 Other diseases of bronchus, not elsewhere classified; D86.9 Sarcoidosis, unspecified; I82.502 Chronic embolism and thrombosis of unspecified deep veins of left lower extremity; Z51.81 Encounter for therapeutic drug level monitoring; Z79.01 Long term (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 of anticoagulants
CPT/HCPCS: 36415; 80048; 80076; 82164; 85025; 85610; 99211

== ENCOUNTER 2023-12-22 07:57 | Outpatient (AMB) | payer OTHER, SELFPAY ==
[2023-12-22 08:03] LABS: Prothrombin Time Whole Bld POC 22.5 sec (11.1-13.5); ~PT, ~INR - Anti Coag Clinic 1.9 (0.9-1.1)
--- NOTE | 2023-12-22 08:10 | MHC.OFFVISCO ---
Intake Intake Visit Reasons: Anticoagulation Allergies No Known Allergies [No Known Allergies*] Allergy (Verified 12/22/23 08:16) Medication List - Last Reconciled 12/22/23 by Mami Springer RN clotrimazole 1% 1 appl topical BID 4 weeks doxazosin 4 mg PO BEDTIME 90 days finasteride 5 mg PO DAILY 90 days infliximab (Remicade) 336 mg IV Q4W 12 months miconazole nitrate 2% (Zeasorb AF) 1 appl topical BID Oxygen Home Use As directed prednisolone acetate 1% (Pred Forte) 1 drp ophthalmic (eye) BEDTIME prednisone 20 mg (2 x 10 mg) PO DAILY prednisone 7.5 mg (1.5 x 5 mg) PO BEDTIME 30 days triamcinolone acetonide 0.5% 1 appl topical DAILY warfarin (Jantoven) 4 mg See Protocol PO BEDTIME Nursing Note Pt to ACS with portable O2. States he feels good. INR 1.9?out of therapeutic range of 2-3 Medications and supplements reviewed Patient status: no changes Medications or supplements: no changes Diet: Has 1 green ensure a day at breakfast Denies any signs and symptoms of bleeding or clotting or unusual bruising Bleeding, bruising, clotting discussed Nutritional guidance given: to avoid greens today. Pt states he may have had too much greens over the past week due to the INR last week of 4.3 Pt will try to balance having ensure daily with a serving daily of foods from the list that raises the INR. Dose: 4mg X 6 days and 2 mg X 1 day F/U INR Date : 1 week?? Patient verbalizing understanding of instructions given. 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
== END 2023-12-22 08:40 | disposition home or self-care (01) ==
LOC: HO.ACS 07:57
PROVIDERS: PCP Internal Medicine; Visit Provider Internal Medicine
DX: Z79.01 Long term (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 of anticoagulants (principal)

== ENCOUNTER 2023-12-29 15:36 | Outpatient (AMB) | payer OTHER, SELFPAY ==
--- NOTE | 2023-12-29 15:43 | MHC.OFFVISCO ---
Intake Intake Visit Reasons: Anticoagulation Allergies No Known Allergies [No Known Allergies*] Allergy (Verified 12/29/23 15:39) Medication List - Last Reconciled 12/29/23 by Robyn Ulloa RN clotrimazole 1% 1 appl topical BID 4 weeks doxazosin 4 mg PO BEDTIME 90 days finasteride 5 mg PO DAILY 90 days infliximab (Remicade) 336 mg IV Q4W 12 months miconazole nitrate 2% (Zeasorb AF) 1 appl topical BID Oxygen Home Use As directed prednisolone acetate 1% (Pred Forte) 1 drp ophthalmic (eye) BEDTIME prednisone 20 mg (2 x 10 mg) PO DAILY prednisone 7.5 mg (1.5 x 5 mg) PO BEDTIME 30 days triamcinolone acetonide 0.5% 1 appl topical DAILY warfarin (Jantoven) 4 mg See Protocol PO BEDTIME Nursing Note INR 3.8-? out of therapeutic range OF 2-3 Medications and supplements reviewed Patient status: Pt on cont oxygen 2l via nasal cannla. Medications or supplements: no changes, prednisone 20mg daily Diet: fair, taking ensure qod- will increase to daily Denies any signs and symptoms of bleeding or clotting or unusual bruising Bleeding, bruising, clotting discussed - pt states bloody nose 2 days ago- enc to call acs with bloody noses Nutritional guidance given: have a green today Dose: hold today- take 4mg x 6, 2mg x 1 F/U INR Date : 1 week Patient verbalizing understanding of instructions given. 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
[2023-12-30 09:49] LABS: Prothrombin Time Whole Bld POC 45.2 sec (11.1-13.5); ~PT, ~INR - Anti Coag Clinic 3.8 (0.9-1.1)
== END 2023-12-29 15:51 | disposition home or self-care (01) ==
LOC: HO.ACS 15:36
PROVIDERS: PCP Internal Medicine; Visit Provider Internal Medicine
DX: Z79.01 Long term (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 of anticoagulants (principal)

== ENCOUNTER → 2023-12-29 15:36 | Outpatient (BNVA) | payer OTHER, SELFPAY | PROVIDERS: PCP Internal Medicine; Visit Provider Internal Medicine | DX: I82.402 Acute embolism and thrombosis of unspecified deep veins of left lower extremity (principal); Z79.01 Long term (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 of anticoagulants; Z51.81 Encounter for therapeutic drug level monitoring | CPT/HCPCS: 85610; 99211 ==

== ENCOUNTER 2023-12-30 09:09 | Outpatient (AMB) | payer OTHER, SELFPAY ==
--- NOTE | 2023-12-30 09:14 | MHC.OFFVIS ---
Vital Signs 12/30/23 09:15 Height 5 ft 4 in Weight 156 lb BMI 26.8 BP 128/70 Blood Pressure Location Lt brachial Position Sitting Pulse 84 Pulse Source Pulse Oximeter Pulse Oximetry (%) 95 Oxygen Delivery Method Room Air Comment 2 Liters Oxygen(J&L) Intake Visit Reasons: Pulm Fibrosis Allergies No Known Allergies [No Known Allergies*] Allergy (Verified 12/30/23 09:15) HPI Comments Details: The patient is a 58-year-old gentleman with a known history of sarcoidosis. 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 At that point he also had a rash on the face. The patient was noted to have lupus pernio. He did have a biopsy-proven sarcoidosis. The patient did have a CT scan of the chest demonstrating pulmonary nodules and also lymphadenopathy. Although the diagnosis of sarcoid was made based on the skin biopsy. I do not have those results is all per the patient. 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 He was placed on prednisone. Ultimately more recently than that the patient start having worsening shortness of breath and cough. Was then placed on methotrexate up to 8 tablets of the 2.5 mg weekly. However after he started the methotrexate he has been noticing worsening cough and shortness of breath. He did have a recent chest x-ray done at the [facility] which I personally reviewed. It appears that he has a chronically elevated right hemidiaphragm but now appears to have more hazy opacities bilaterally suggesting pneumonitis. I did compare that to his previous x-ray from October which she did not have the degree of pneumonitis as he has now. Therefore I am concerned that he is having some adverse effects of the methotrexate. Assess as far as I know the only involvement of the sarcoid has been his lungs his skin and also the uveitis. 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 It is likely that the thrombotic issues are also related to sarcoidosis. He denies any other involvement of any other end-organ. We did review his blood work his total bili is a little elevated and he has had issues with liver in the past. But is hard to know for sure if is related to sarcoid any other etiology. The patient complains that his cough is very significant. He had call the on-call physician was given Tessalon Perles without any significant improvement. For now while we deal with his active sarcoid issue go ahead and give her some codeine cough syrup patient does use state Travis often at nighttime to make sure that he can stop coughing. 08/03/2022 the patient is here for a pulmonary follow-up visit. He still the same. He still complains of cough and some chest congestion. The mucus is yellowish and whitish in color. Euup-bi-gyinpwbd severity. Did have worse at nighttime. The patient did switch over to mycophenolate from methotrexate. Seems to be tolerating it although still low dose of 100 mg twice a day. Was able to cut down the prednisone from 20 mg to 10 mg which is reassuring. Will continue to optimize his sarcoid therapy by increasing the mycophenolate to 1000 mg twice a day and also decreasing the prednisone some 0.5 mg. He also will going to go very slowly to make sure that he is able to decrease her dose effectively. We did review his CT scan of the chest demonstrating significant interstitial lung disease and pulmonary nodules when compared to his CT scan from 2014. He also had pulmonary function studies demonstrating a moderate restrictive ventilatory defect. In part he does have an elevated right hemidiaphragm that is resulting in diminished lung capacity. At this point will continue to maintain him on therapy to make sure that he does not have any progression of the scarring if is due to the sarcoidosis. 11/06/2022 the patient is here for a pulmonary follow-up visit. He continues with his ongoing chest congestion and cough. Moderate severity. Worse at nighttime. Has not responded to the respiratory therapy or the immunosuppressive therapy. He does bring up chest congestion although have been able to get a culture. We did review his CT scan of the chest. The patient does have normal findings. Based on his ongoing cough and his lack of response to his current therapy will plan to perform bronchoscopy. He does have pertinent S deficiency with hypercoagulable state and currently on Coumadin. I will be working with the Coumadin clinic in order to get him ready for the procedure. 01/29/2023 the patient is here for apulmonary follow up visit. Complaining that the cough is no better. Moderate in severity. Patient did have significant evidence of bronchomalacia. This is likely contributing to his significant cough. He also had moderate mucoid secretions that were suction. Patient is cultures were all negative. His endobronchial biopsies were negative for any sarcoidosis. Unfortunate patient continues to cough. Explained to him that the issue is the collapsing of the airways. At this point will start him on CPT with the Acapella valve to help him clear secretions. The patient will continue with current respiratory therapy. He will start cough suppressant. 05/06/2023 the patient has a telehealth visit today. He has not recovering from a viral syndrome on home. He is feeling better. He continues on the prednisone 7.5 mg daily and also continues on the mycophenolate. Seems to be tolerating therapy well and his blood sugars have been okay. In regards of his respiratory symptoms he has been coughing a little more secondary to the viral syndrome her pdxj-rj-vnzigqvw severity. Otherwise feels well he does need any additional therapies at this time. Will plan to repeat his CT scan in 3 months' time year from his last 1 to see the progression of his underlying nodular densities and interstitial lung disease. 08/13/2023 the patient is here for pulmonary follow-up visit. The patient continues have a cough. The cough is moderate severe. He is tried multiple medications without any significant improvement. In regards of the sarcoidosis the patient has been on the chronic prednisone and also has been on mycophenolate 2 g a day. He is noticed also worsening dyspnea on exertion. Etia-yw-wwepjfgc severity. He did have a CT scan of the chest which we personally reviewed. It appears it has interval worsening of the pulmonary fibrosis which is concerning. He is already on high dose of mycophenolate and on chronic prednisone. Will go ahead and give him a prednisone taper to see if we can improve the symptoms. In the meantime we talked about other alternative therapies such as Remicade. The patient is open to trying these medications. Will go ahead and request blood work to make sure that he can start the therapy as soon as possible. I also did offer him a 2nd opinion at the sarcoid Clinic at [facility]. However, the patient is concerned about the drive. Will continue to discuss that. Specially in view of the worsening fibrosis. We did go for 6 minute walk test the patient did desaturate down to 87% with activity on room air. Did qualify for a conserving device at 2 L pulse. Will go ahead and request a concentrator and portable oxygen concentrator through [facility]. 10/26/2023 the patient is here for pulmonary follow-up visit. Overall the patient has been doing well. He is still coughing though. Moderate severity. Denies any shortness of breath. He was switched over to Remicade because he continued to have progression of the interstitial lung disease even on high doses of the mycophenolate. He seems to be tolerating medication well infusions are going well without any adverse effects. Will plan to repeat an x-ray in the next few months to see if there is any progression. Although his respiratory exam is indeed better this time. His cough is mainly in upper airway cough syndrome. Will try to treat him with Sudafed and also 1st generation antihistamines to see if we can settle down the cough. He is tried multiple other stlb-jdh-ugwhggj medications in prescription medication without any significant improvement. Follow-up in 3 months. 12/08/2023 the patient is here for hospital follow-up visit. The patient was developing worsening respiratory symptoms and he was admitted to [facility]. He had a CT scan of the chest there which I do not have available but the patient described it as rito out. Likely significant diffuse pneumonitis. The patient initially tested negative for COVID on the nasal swab but he did have a bronchoscopy that were positive for COVID. Therefore he was treated for COVID pneumonitis and pneumonia. He was placed on oxygen. He is prednisone was increased from 7.5 2 higher amount. He was subsequently discharged on a prednisone taper. The patient is still having hard time breathing he is using oxygen. We did give him a portable oxygen concentrator to use after, but, the patient has had a hard time with it. Since that is working. We did call the DME so they can look at it. In the meantime we placed him on oxygen which did help. The patient is still working. He has hard time not working and therefore he needs to have the oxygen order to continue his working activities. He did have a chest x-ray today which I personally reviewed demonstrating still persistent elevation of the right hemidiaphragm although that is chronic interstitial changes which appeared to be chronic. And some degree of ill-defined opacities in the upper lung zones which is new but since be getting better. His baseline x-ray was not normal on the 1st place. He has been on Remicade. His next dose is sometime in January. Will follow-up in a couple weeks. The meantime he is going to increase the prednisone to 20 mg from his baseline 7.5 to try to decrease the inflammatory changes. 12/30/2023 the patient is here for a pulmonary follow-up visit. He is not feeling any better. He did go up to 20 mg of prednisone. He continues on the Remicade. The patient did have a chest x-ray demonstrating interval worsening of the interstitial lung disease primarily the left hemithorax where he was primarily preserved. He does have an elevated right hemidiaphragm. He has been having issues with a portable oxygen concentrator. He did have to go up to 4 L pulse which is fine with activity. He can keep it at 2 L at rest. We talked about deep breathing exercises to make sure that he maximize his the respiratory effort and gas exchange. In view of the worsening pulmonary fibrosis will be a good candidate for Ofev. I will send a prescription to the pharmacy once we get approval. In the meantime pulmonary rehabilitation will be keep. The patient has been on 20 mg of prednisone without any significant changes in his respiratory capacity. Therefore, will start tapering down to his baseline dose 7.5 mg. Will follow-up in 4-6 weeks. [facility] Medical History (Updated 12/08/23 @ 22:16 by Chaparro Da Silva MD) Pneumonia due to COVID-19 virus Pulmonary fibrosis ILD (interstitial lung disease) Bronchomalacia Right inguinal hernia Sarcoidosis Pulmonary nodules Obesity (BMI 30.0-34.9) Bleeding hemorrhoids Leg pain, right LFT elevation Hyperkalemia Glaucoma BPH (benign prostatic hyperplasia) Vitamin D deficiency Hypercholesterolemia Protein S deficiency DVT (deep venous thrombosis) Thrombocytopenia Surgical History History of right inguinal hernia repair Hx of lymph node biopsy Hx of colonoscopy History of umbilical hernia repair History of appendectomy History of sinus surgery Family History Mother No problems noted. Father Medical history unknown Daughter In good health Sister In good health Brother Lung cancer Social History Household Members: Significant Other Housing: House Are you a primary point of care specialist to a significant other at home: No Do you presently have visiting nurse or other home services: No Alcohol intake: current Alcohol intake frequency: holidays/special occasions only Comment: 3x a year 2 drinks Patient Tobacco Use Status: Never used Tobacco e-Cigarette/Vaping Use: Never Used Second Hand Smoke Exposure: No service: No Current occupational status: employed Cognitive needs: No Hearing needs: No Vision needs: Yes Review of Systems Const Denies body aches and Denies fever(s) Eyes Denies change in vision ENT Denies change in voice Card Denies chest pain, Reports dyspnea and Reports dyspnea on exertion Resp Denies chest congestion, Reports cough, Denies hemoptysis, Reports dyspnea, Reports dyspnea on exertion and Denies wheezing GI Denies no additional complaints Musc Reports no additional complaints Skin/Breast Denies new lesions and Reports rash Neuro Reports no additional complaints Endo Denies flushing Sina/Lymph Denies easy bruising and Denies lymphadenopathy Aller/Immun Denies wheezing Physical Exam Const General: comfortable HEENT Head: Yes normocephalic Eyes General: appearance normal, both eyes and all related structures Neck Neck: Yes supple Chest Chest palpation & inspection: normal inspection of the chest Resp Effort & Inspection: normal respiratory effort Auscultation: crackles and diminished lung sounds Cardio Rate: regular rate Rhythm: regular rhythm Heart sounds: S1 normal heart sound present and S2 normal heart sound present GI Auscultation: normal bowel sounds Skin General skin exam: no rashes or lesions noted Extrem General: Yes no clubbing, cyanosis or edema Results Reviewed Results Reviewed: CXR 11/2023-personally reviewed by me, interval worsening of pulmonary fibroisis Assessment & Plan Assessment & Plan (1) Pulmonary fibrosis: Comment: 2011 Code(s): J84.10 - Pulmonary fibrosis, unspecified Category: Medical (2) Sarcoid: Comment: 2011 Code(s): D86.9 - Sarcoidosis, unspecified Category: Medical (3) Pulmonary nodules: Code(s): R91.8 - Other nonspecific abnormal finding of lung field Category: Medical (4) Cough: Code(s): R05.9 - Cough, unspecified Category: Medical Qualifiers: Cough type: chronic Qualified Code(s): R05.3 - Chronic cough (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(s): Z79.52 - 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 (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 of systemic steroids Category: Medical (6) Bronchomalacia: Code(s): J98.09 - Other diseases of bronchus, not elsewhere classified Category: Medical (7) Pneumonia due to COVID-19 virus: Code(s): U07.1 - COVID-19; J12.82 - Pneumonia due to coronavirus disease 2019 Category: Medical Plan oxygen 2-4L/pulse taper Prednisone 20mg->15mg->10->7.5mg continue Remicade, net dose in January start OFEV due to he progression of the pulmonary fibrosis CPT with acapella valve start Pulmonary rehab F/U 4-6 weeks Orders: Orders Pulmonary Rehab Today J12.82 - Pneumonia due to coronavirus disease 2019, J84.10 - Pulmonary fibrosis, unspecified, U07.1 - COVID-19 Coding Level of Care Code Est Pt Level 5 (00591) Diagnoses Pulmonary fibrosis J84.10 Sarcoid D86.9 Pulmonary nodules R91.8 Chronic cough R05.3 Cough type: chronic 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
[2023-12-30 09:15] VITALS: BP 128/70; PULSE 84; O2SAT 95; BMI 26.8
== END 2023-12-30 09:41 | disposition home or self-care (01) ==
PROVIDERS: PCP Internal Medicine; Visit Provider Hospitalist
DX: J84.10 Pulmonary fibrosis, unspecified (principal); D86.9 Sarcoidosis, unspecified; R91.8 Other nonspecific abnormal finding of lung field; R05.3 Chronic cough; Z79.52 Long term (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 of systemic steroids; J98.09 Other diseases of bronchus, not elsewhere classified; U07.1 COVID-19; J12.82 Pneumonia due to coronavirus disease 2019
CPT/HCPCS: 99214

== ENCOUNTER → 2023-12-30 09:09 | Outpatient (BNVA) | payer OTHER, SELFPAY | PROVIDERS: PCP Internal Medicine; Visit Provider Hospitalist | DX: J84.10 Pulmonary fibrosis, unspecified (principal); D86.9 Sarcoidosis, unspecified; R91.8 Other nonspecific abnormal finding of lung field; R05.3 Chronic cough; J98.09 Other diseases of bronchus, not elsewhere classified; U07.1 COVID-19; J12.82 Pneumonia due to coronavirus disease 2019; Z79.52 Long term (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 of systemic steroids; Z79.899 Other long term (current) drug therapy | CPT/HCPCS: 99212 ==

== ENCOUNTER 2024-01-04 14:42 | Outpatient (AMB) | payer OTHER, SELFPAY ==
--- NOTE | 2024-01-04 15:15 | A.OFFVIS_ITS ---
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 Allergies No Known Allergies [No Known Allergies*] Allergy (Verified 03/07/24 08:36) Medication List - Last Reconciled 01/04/24 by Ugo Cummings MD clotrimazole 1% 1 appl topical BID 4 weeks doxazosin 4 mg PO BEDTIME 90 days finasteride 5 mg PO DAILY 90 days infliximab (Remicade) 336 mg IV Q4W 12 months miconazole nitrate 2% (Zeasorb AF) 1 appl topical BID oxybutynin chloride ER 5 mg PO DAILY 30 days Oxygen Home Use As directed prednisolone acetate 1% (Pred Forte) 1 drp ophthalmic (eye) BEDTIME prednisone 20 mg (2 x 10 mg) PO DAILY prednisone 7.5 mg (1.5 x 5 mg) PO BEDTIME 30 days triamcinolone acetonide 0.5% 1 appl topical DAILY warfarin (Jantoven) 4 mg See Protocol PO BEDTIME HPI Comments Details: Max is a very pleasant male. He is a patient of Dr. Myers. He seen for the following urologic conditions - lower urinary tract symptoms Cystoscopy Follow-up on combination therapy of doxazosin and finasteride Prior imaging 85 g prostate Still with nocturia x3 or 4 Does have some urgency during the day Trial oxybutynin Lower urinary tract symptoms Progressive AUA symptom score initial evaluation 12, 4. Nocturia x3 which is very disruptive Prior trial tamsulosin with minimal impact, trial of doxazosin and finasteride Imaging 85 g prostate with effective bladder emptying [facility] Medical History (Updated 03/14/24 @ 20:59 by Ugo Cummings MD) Pneumonia due to COVID-19 virus Pulmonary fibrosis ILD (interstitial lung disease) Bronchomalacia Right inguinal hernia Sarcoidosis Pulmonary nodules Obesity (BMI 30.0-34.9) Bleeding hemorrhoids Leg pain, right LFT elevation Hyperkalemia Glaucoma BPH (benign prostatic hyperplasia) Vitamin D deficiency Hypercholesterolemia Protein S deficiency DVT (deep venous thrombosis) Thrombocytopenia Surgical History History of right inguinal hernia repair Hx of lymph node biopsy Hx of colonoscopy History of umbilical hernia repair History of appendectomy History of sinus surgery Family History Mother No problems noted. Father Medical history unknown Daughter In good health Sister In good health Brother Lung cancer Social History Household Members: Significant Other Housing: House Are you a primary critical care transport nurse to a significant other at home: No Do you presently have visiting nurse or other home services: No Alcohol intake: current Alcohol intake frequency: holidays/special occasions only Comment: 3x a year 2 drinks Patient Tobacco Use Status: Never used Tobacco e-Cigarette/Vaping Use: Never Used Second Hand Smoke Exposure: No service: No Current occupational status: employed Cognitive needs: No Hearing needs: No Vision needs: Yes Review of Systems Const Denies chills and Denies fever(s) Card Reports no additional complaints and Denies syncope Resp Denies cough GI Denies abdominal pain and Denies heartburn Reports as per HPI and Denies change in libido Neuro Denies syncope Psych Denies change in libido Endo Denies change in libido Physical Exam Const General: cooperative, healthy appearing, comfortable and no acute distress Orientation/consciousness: patient oriented x3 HEENT Face and sinus: Yes normal facial exam Mouth: moist mucous membranes Neck Neck: Yes normal visual inspection, Yes full ROM and Yes trachea midline Chest Chest palpation & inspection: normal inspection of the chest Resp Effort & Inspection: normal respiratory effort, able to speak in complete sentences and no respiratory distress GI Inspection: Yes normal to inspection Back/Spine/Pelvis Cervical Spine: normal cervical lordosis Thoracic/Lumbar Spine: thoracic and lumbar spine normal to inspection Skin General skin exam: no rashes or lesions noted Neuro General: patient oriented x3, gait normal, tone normal and moves all extremities Extrem General: Yes normal to inspection and Yes capillary refill normal Office Procedures Cystoscopy Consent Discussed risk and benefit or proposed procedure with the patient. Information consent for procedure given to the patient. Discussed technical aspects, risks, benefits and alternatives in full. Addressed all of the patient's questions and concerns regarding the procedure. The patient demonstrated knowledge and understanding. They wish to proceed with this procedure. Preparation The patient was prepped in the usual manner. A portable sawyer was present and in the room. Genitalia was prepped with betadine solution in a sterile manner. Lidocaine Jelly 2% was placed into the urethra and 16Fr flexible Olympus cystoscope was inserted into the meatus after adequate lubrication. Procedure Cystoscopy performed using a disposable Urovue digital 16 K[place] cystoscope. Meatus normal position Urethra anterior and posterior urethra normal Prostatic Urethra mild prosthetic impingement Bladder examination with retroflexion of cystoscope Bladder Orifices normal shape and position Bladder Capacity median Trabeculations grade 2 Cellule Formation no Diverticulum Formation no Mucosal Erythema - Bladder Tumor - [id number] DISPOSABLE SCOPE URO-G FLEXIBLE SCOPE Procedure code (CPT) selection complete Office Meds lidocaine HCl 2 % mucosal jelly in applicator Performing Provider: Ugo Cummings MD Performing Location: [facility] [place] [facility] Administered by: Rocky Borja LPN on 01/04/24 15:25 Dose Route Admin Location Dispensed Lot Number Expiration Date ND Color Paste Mixer 10 mL intra-urethral 10 mL nitrofurantoin monohydrate/macrocrystals 100 mg capsule Performing Provider: Ugo Cummings MD Performing Location: [facility] [place] [facility] Administered by: Rocky Borja LPN on 01/04/24 15:25 Dose Route Admin Location Dispensed Lot Number Expiration Date NDC Color Paste Mixer 100 mg PO 1 cap naproxen 500 mg tablet Performing Provider: Ugo Cummings MD Performing Location: [facility] [place] [facility] Administered by: Rocky Borja LPN on 01/04/24 15:25 Dose Route Admin Location Dispensed Lot Number Expiration Date NDC Color Paste Mixer 500 mg PO 1 tab Assessment & Plan Assessment & Plan (1) BPH (benign prostatic hyperplasia): Comment: Prostate 85 cc Code(s): N40.0 - Benign prostatic hyperplasia without lower urinary tract symptoms Category: Medical Qualifiers: Lower urinary tract symptom presence: symptoms present Lower urinary tract symptom detail: urinary frequency Qualified Code(s): N40.1 - Benign prostatic hyperplasia with lower urinary tract symptoms; R35.0 - Frequency of micturition (2) Bladder instability: Code(s): N32.89 - Other specified disorders of bladder Category: Medical Plan Trial oxybutynin for bladder instabilityImaging studies, laboratory and physical exam results were discussed and reviewed in detail. No major barriers to patient understanding were identified. An opportunity to ask questions regarding the treatment plan was provided. All questions were answered. The patient expressed understanding and agreement with the above treatment plan. The patient is aware they should contact our office by phone for worsening of their current condition or the appearance of new urologic symptoms. Compliance is encouraged with any medications and followup testing that is ordered. It is a privilege to participate in the urologic care of your patient. If you have any questions or concerns regarding treatment for the above conditions, or other urologic issues, please do not hesitate to contact me. The office telephone contact is [phone]. This note is constructed using voice recognition software. While every effort has been made to ensure accuracy dampproofer errors may have been included. Yours sincerely, Dr Ugo Cummings MD, [facility] - Urology Providers of Expert, Compassionate Care for the Genitourinary System Orders: Orders AMB Cystoscopy 01/04/24 R35.0 - Frequency of micturition, N20.0 - Calculus of kidney, N40.1 - Benign prostatic hyperplasia with lower urinary tract symptoms Medications: New oxybutynin chloride ER 5 mg PO DAILY 30 tabs 1RF 30 days R35.0 - Frequency of micturition, R39.15 - Urgency of urination, N32.81 - Overactive bladder Coding Level of Care Code Est Pt Level 4 (70750) Diagnoses Benign prostatic hyperplasia with urinary frequency N40.1; R35.0 Lower urinary tract symptom presence: symptoms present Lower urinary tract symptom detail: urinary frequency Bladder instability N32.89 CPT Codes Cystoscopy - CPT: 75709-[id number] ([id number])
== END 2024-01-04 16:10 | disposition home or self-care (01) ==
PROVIDERS: PCP Internal Medicine; Visit Provider Urology
DX: N40.1 Benign prostatic hyperplasia with lower urinary tract symptoms (principal); R35.0 Frequency of micturition; N20.0 Calculus of kidney
CPT/HCPCS: 52000; 99214

== ENCOUNTER → 2024-01-04 14:42 | Outpatient (BNVA) | payer OTHER, SELFPAY | PROVIDERS: PCP Internal Medicine; Visit Provider Urology | DX: N40.1 Benign prostatic hyperplasia with lower urinary tract symptoms (principal); R35.0 Frequency of micturition; N32.89 Other specified disorders of bladder | CPT/HCPCS: 52000; 99212 ==

== ENCOUNTER 2024-01-05 07:57 | Outpatient (AMB) | payer OTHER, SELFPAY ==
[2024-01-05 08:12] LABS: Prothrombin Time Whole Bld POC 23.7 sec (11.1-13.5)
--- NOTE | 2024-01-05 08:18 | MHC.OFFVISCO ---
Intake Intake Visit Reasons: Anticoagulation Allergies No Known Allergies [No Known Allergies*] Allergy (Verified 01/05/24 08:07) Medication List - Last Reconciled 01/05/24 by Paz Paiz RN clotrimazole 1% 1 appl topical BID 4 weeks doxazosin 4 mg PO BEDTIME 90 days finasteride 5 mg PO DAILY 90 days infliximab (Remicade) 336 mg IV Q4W 12 months miconazole nitrate 2% (Zeasorb AF) 1 appl topical BID oxybutynin chloride ER 5 mg PO DAILY 30 days Oxygen Home Use As directed prednisolone acetate 1% (Pred Forte) 1 drp ophthalmic (eye) BEDTIME prednisone 20 mg (2 x 10 mg) PO DAILY prednisone 7.5 mg (1.5 x 5 mg) PO BEDTIME 30 days triamcinolone acetonide 0.5% 1 appl topical DAILY warfarin (Jantoven) 4 mg See Protocol PO BEDTIME Nursing Note NO CP,SOB,DIET/MED CHANGES,FALLS OR SX OF BLEEDING. CONTINUE PRESENT DOSE AND FOLLOW-UP IN 1 WEEK GOOD UNDERSTANDING OF DOSING INSTR. Anti-Coag Initial Assessment Social Hx Patient Tobacco Use Status: Never used Tobacco alcohol intake: current Alcohol intake frequency: holidays/special occasions only Coding Level of Care Code Est Patient Level 1 Diagnoses Current use of anticoagulant therapy Z79.01 Assessment & Plan Assessment & Plan (1) Current use of anticoagulant therapy: Code(s): Z79.01 - correction (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
== END 2024-01-05 08:19 | disposition home or self-care (01) ==
LOC: HO.ACS 07:57
PROVIDERS: PCP Internal Medicine; Visit Provider Internal Medicine
DX: Z79.01 Long term (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 of anticoagulants (principal)

== ENCOUNTER → 2024-01-05 07:57 | Outpatient (BNVA) | payer OTHER, SELFPAY | PROVIDERS: PCP Internal Medicine; Visit Provider Internal Medicine | DX: I82.402 Acute embolism and thrombosis of unspecified deep veins of left lower extremity (principal); Z79.01 Long term (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 of anticoagulants; Z51.81 Encounter for therapeutic drug level monitoring | CPT/HCPCS: 85610; 99211 ==

== ENCOUNTER 2024-01-14 08:02 | Outpatient (AMB) | payer OTHER, SELFPAY ==
[2024-01-14 08:12] LABS: Prothrombin Time Whole Bld POC 34.6 sec (11.1-13.5); ~PT, ~INR - Anti Coag Clinic 2.9 (0.9-1.1)
--- NOTE | 2024-01-14 08:15 | MHC.OFFVISCO ---
Intake Intake Visit Reasons: Anticoagulation Allergies No Known Allergies [No Known Allergies*] Allergy (Verified 01/14/24 08:05) Medication List - Last Reconciled 01/14/24 by Marcia Dave RN clotrimazole 1% 1 appl topical BID 4 weeks doxazosin 4 mg PO BEDTIME 90 days finasteride 5 mg PO DAILY 90 days infliximab (Remicade) 336 mg IV Q4W 12 months miconazole nitrate 2% (Zeasorb AF) 1 appl topical BID nintedanib (Ofev) 150 mg PO Q12H 30 days oxybutynin chloride ER 5 mg PO DAILY 30 days Oxygen Home Use As directed prednisolone acetate 1% (Pred Forte) 1 drp ophthalmic (eye) BEDTIME prednisone 20 mg (2 x 10 mg) PO DAILY prednisone 7.5 mg (1.5 x 5 mg) PO BEDTIME 30 days triamcinolone acetonide 0.5% 1 appl topical DAILY warfarin (Jantoven) 4 mg See Protocol PO BEDTIME Nursing Note INR: 2.9 in therapeutic range Medications and supplements reviewed No changes in health, diet, medications, or supplements, Denies any signs and symptoms of bleeding or bruising or clotting. Bleeding, bruising, clotting discussed Nutritional guidance given Dose: 2MG WEDNESDAY/ 4MG X 6 DAYS F/U INR: 2 WEEKS Patient verbalizes understanding of instructions given Anti-Coag Initial Assessment Social Hx Patient Tobacco Use Status: Never used Tobacco alcohol intake: current Alcohol intake frequency: holidays/special occasions only Coding Level of Care Code Est Patient Level 1 Diagnoses Current use of anticoagulant therapy Z79.01 Results AMB INR Fingerstick AMB INR Fingerstick 2.9 Last Edit by Marcia Dave RN on 01/14/24 08:12 MANUAL ENTRY Assessment & Plan Assessment & Plan (1) Current use of anticoagulant therapy: Code(s): Z79.01 - emt intermediate (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 Medications: Changed From prednisone 20 mg (2 x 10 mg) PO DAILY 30 tabs 0RF To prednisone 10 mg PO .qhs 30 tabs 0RF
== END 2024-01-14 08:16 | disposition home or self-care (01) ==
LOC: HO.ACS 08:02
PROVIDERS: PCP Internal Medicine; Visit Provider Internal Medicine
DX: Z79.01 Long term (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 of anticoagulants (principal)

== ENCOUNTER → 2024-01-14 08:02 | Outpatient (BNVA) | payer OTHER, SELFPAY | PROVIDERS: PCP Internal Medicine; Visit Provider Internal Medicine | DX: I82.402 Acute embolism and thrombosis of unspecified deep veins of left lower extremity (principal); Z79.01 Long term (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 of anticoagulants; Z51.81 Encounter for therapeutic drug level monitoring | CPT/HCPCS: 85610; 99211 ==

== ENCOUNTER 2024-01-27 15:53 | Outpatient (AMB) | payer OTHER, SELFPAY ==
--- NOTE | 2024-01-27 16:07 | MHC.OFFVISCO ---
Intake Intake Visit Reasons: Anticoagulation Allergies No Known Allergies [No Known Allergies*] Allergy (Verified 01/27/24 15:53) Medication List - Last Reconciled 01/27/24 by Paz Paiz RN clotrimazole 1% 1 appl topical BID 4 weeks doxazosin 4 mg PO BEDTIME 90 days finasteride 5 mg PO DAILY 90 days infliximab (Remicade) 336 mg IV Q4W 12 months miconazole nitrate 2% (Zeasorb AF) 1 appl topical BID nintedanib (Ofev) 150 mg PO Q12H 30 days oxybutynin chloride ER 5 mg PO DAILY 30 days Oxygen Home Use As directed prednisolone acetate 1% (Pred Forte) 1 drp ophthalmic (eye) BEDTIME prednisone 10 mg PO .qhs prednisone 7.5 mg (1.5 x 5 mg) PO BEDTIME 30 days triamcinolone acetonide 0.5% 1 appl topical DAILY warfarin (Jantoven) 4 mg See Protocol PO BEDTIME Nursing Note NO CP,INCREASED SOB,DIET/MED CHANGES,FALLS OR SX OF BLEEDING. O2 CONT.AT 2-3LITERS CONTINUE PRESENT WARFARIN DOSE AND FOLLOW-UP IN 3 WEEKS. GOOD UNDERSTANDING OF INSTR, Anti-Coag Initial Assessment Social Hx Patient Tobacco Use Status: Never used Tobacco alcohol intake: current Alcohol intake frequency: holidays/special occasions only Coding Level of Care Code Est Patient Level 1 Diagnoses Current use of anticoagulant therapy Z79.01 Results AMB INR Fingerstick AMB INR Fingerstick 3.2 Last Edit by Paz Paiz RN on 01/27/24 16:03 Assessment & Plan Assessment & Plan (1) Current use of anticoagulant therapy: Code(s): Z79.01 - extermination supervisor (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
[2024-01-28 02:16] LABS: Prothrombin Time Whole Bld POC 37.8 sec (11.1-13.5); ~PT, ~INR - Anti Coag Clinic 3.2 (0.9-1.1)
== END 2024-01-27 16:08 | disposition home or self-care (01) ==
LOC: HO.ACS 15:53
PROVIDERS: PCP Internal Medicine; Visit Provider Internal Medicine
DX: Z79.01 Long term (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 of anticoagulants (principal)

== ENCOUNTER → 2024-01-27 15:53 | Outpatient (BNVA) | payer OTHER, SELFPAY | PROVIDERS: PCP Internal Medicine; Visit Provider Internal Medicine | DX: I82.402 Acute embolism and thrombosis of unspecified deep veins of left lower extremity (principal); Z79.01 Long term (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 of anticoagulants; Z51.81 Encounter for therapeutic drug level monitoring | CPT/HCPCS: 85610; 99211 ==

== ENCOUNTER 2024-01-31 15:30 | Outpatient (AMB) | payer OTHER, SELFPAY ==
[2024-01-31 15:35] VITALS: BP 124/70; PULSE 78; O2SAT 93; BMI 26.8
--- NOTE | 2024-01-31 15:35 | MHC.OFFVIS ---
Vital Signs 01/31/24 15:35 Height 5 ft 4 in Weight 156 lb BMI 26.8 BP 124/70 Blood Pressure Location Rt brachial Position Sitting Pulse 78 Pulse Source Pulse Oximeter Pulse Oximetry (%) 93 Oxygen Delivery Method Room Air Comment 2 Liters Oxygen([facility]) Intake Visit Reasons: Pulm Fibrosis Administrative Job Titles Required: No Allergies No Known Allergies [No Known Allergies*] Allergy (Verified 01/31/24 15:38) HPI Comments Details: The patient is a 58-year-old gentleman with a known history of sarcoidosis. 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 At that point he also had a rash on the face. The patient was noted to have lupus pernio. He did have a biopsy-proven sarcoidosis. The patient did have a CT scan of the chest demonstrating pulmonary nodules and also lymphadenopathy. Although the diagnosis of sarcoid was made based on the skin biopsy. I do not have those results is all per the patient. 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 He was placed on prednisone. Ultimately more recently than that the patient start having worsening shortness of breath and cough. Was then placed on methotrexate up to 8 tablets of the 2.5 mg weekly. However after he started the methotrexate he has been noticing worsening cough and shortness of breath. He did have a recent chest x-ray done at the [facility] which I personally reviewed. It appears that he has a chronically elevated right hemidiaphragm but now appears to have more hazy opacities bilaterally suggesting pneumonitis. I did compare that to his previous x-ray from October which she did not have the degree of pneumonitis as he has now. Therefore I am concerned that he is having some adverse effects of the methotrexate. Assess as far as I know the only involvement of the sarcoid has been his lungs his skin and also the uveitis. 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 It is likely that the thrombotic issues are also related to sarcoidosis. He denies any other involvement of any other end-organ. We did review his blood work his total bili is a little elevated and he has had issues with liver in the past. But is hard to know for sure if is related to sarcoid any other etiology. The patient complains that his cough is very significant. He had call the on-call physician was given Tesadriana Kraus without any significant improvement. For now while we deal with his active sarcoid issue go ahead and give her some codeine cough syrup patient does use state Travis often at nighttime to make sure that he can stop coughing. 08/03/2022 the patient is here for a pulmonary follow-up visit. He still the same. He still complains of cough and some chest congestion. The mucus is yellowish and whitish in color. Mzuq-ix-imhrrzdl severity. Did have worse at nighttime. The patient did switch over to mycophenolate from methotrexate. Seems to be tolerating it although still low dose of 100 mg twice a day. Was able to cut down the prednisone from 20 mg to 10 mg which is reassuring. Will continue to optimize his sarcoid therapy by increasing the mycophenolate to 1000 mg twice a day and also decreasing the prednisone some 0.5 mg. He also will going to go very slowly to make sure that he is able to decrease her dose effectively. We did review his CT scan of the chest demonstrating significant interstitial lung disease and pulmonary nodules when compared to his CT scan from 2014. He also had pulmonary function studies demonstrating a moderate restrictive ventilatory defect. In part he does have an elevated right hemidiaphragm that is resulting in diminished lung capacity. At this point will continue to maintain him on therapy to make sure that he does not have any progression of the scarring if is due to the sarcoidosis. 11/06/2022 the patient is here for a pulmonary follow-up visit. He continues with his ongoing chest congestion and cough. Moderate severity. Worse at nighttime. Has not responded to the respiratory therapy or the immunosuppressive therapy. He does bring up chest congestion although have been able to get a culture. We did review his CT scan of the chest. The patient does have normal findings. Based on his ongoing cough and his lack of response to his current therapy will plan to perform bronchoscopy. He does have pertinent S deficiency with hypercoagulable state and currently on Coumadin. I will be working with the Coumadin clinic in order to get him ready for the procedure. 01/29/2023 the patient is here for apulmonary follow up visit. Complaining that the cough is no better. Moderate in severity. Patient did have significant evidence of bronchomalacia. This is likely contributing to his significant cough. He also had moderate mucoid secretions that were suction. Patient is cultures were all negative. His endobronchial biopsies were negative for any sarcoidosis. Unfortunate patient continues to cough. Explained to him that the issue is the collapsing of the airways. At this point will start him on CPT with the Acapella valve to help him clear secretions. The patient will continue with current respiratory therapy. He will start cough suppressant. 05/06/2023 the patient has a telehealth visit today. He has not recovering from a viral syndrome on home. He is feeling better. He continues on the prednisone 7.5 mg daily and also continues on the mycophenolate. Seems to be tolerating therapy well and his blood sugars have been okay. In regards of his respiratory symptoms he has been coughing a little more secondary to the viral syndrome her [id number]-knrifxjj severity. Otherwise feels well he does need any additional therapies at this time. Will plan to repeat his CT scan in 3 months' time year from his last 1 to see the progression of his underlying nodular densities and interstitial lung disease. 08/13/2023 the patient is here for pulmonary follow-up visit. The patient continues have a cough. The cough is moderate severe. He is tried multiple medications without any significant improvement. In regards of the sarcoidosis the patient has been on the chronic prednisone and also has been on mycophenolate 2 g a day. He is noticed also worsening dyspnea on exertion. Byyd-cx-ihwpqlwj severity. He did have a CT scan of the chest which we personally reviewed. It appears it has interval worsening of the pulmonary fibrosis which is concerning. He is already on high dose of mycophenolate and on chronic prednisone. Will go ahead and give him a prednisone taper to see if we can improve the symptoms. In the meantime we talked about other alternative therapies such as Remicade. The patient is open to trying these medications. Will go ahead and request blood work to make sure that he can start the therapy as soon as possible. I also did offer him a 2nd opinion at the sarcoid Clinic at [facility]. However, the patient is concerned about the drive. Will continue to discuss that. Specially in view of the worsening fibrosis. We did go for 6 minute walk test the patient did desaturate down to 87% with activity on room air. Did qualify for a conserving device at 2 L pulse. Will go ahead and request a concentrator and portable oxygen concentrator through [employer]. 10/26/2023 the patient is here for pulmonary follow-up visit. Overall the patient has been doing well. He is still coughing though. Moderate severity. Denies any shortness of breath. He was switched over to Remicade because he continued to have progression of the interstitial lung disease even on high doses of the mycophenolate. He seems to be tolerating medication well infusions are going well without any adverse effects. Will plan to repeat an x-ray in the next few months to see if there is any progression. Although his respiratory exam is indeed better this time. His cough is mainly in upper airway cough syndrome. Will try to treat him with Sudafed and also 1st generation antihistamines to see if we can settle down the cough. He is tried multiple other vtdg-qvx-jqdbzbe medications in prescription medication without any significant improvement. Follow-up in 3 months. 12/08/2023 the patient is here for hospital follow-up visit. The patient was developing worsening respiratory symptoms and he was admitted to [facility]. He had a CT scan of the chest there which I do not have available but the patient described it as rito out. Likely significant diffuse pneumonitis. The patient initially tested negative for COVID on the nasal swab but he did have a bronchoscopy that were positive for COVID. Therefore he was treated for COVID pneumonitis and pneumonia. He was placed on oxygen. He is prednisone was increased from 7.5 2 higher amount. He was subsequently discharged on a prednisone taper. The patient is still having hard time breathing he is using oxygen. We did give him a portable oxygen concentrator to use after, but, the patient has had a hard time with it. Since that is working. We did call the DME so they can look at it. In the meantime we placed him on oxygen which did help. The patient is still working. He has hard time not working and therefore he needs to have the oxygen order to continue his working activities. He did have a chest x-ray today which I personally reviewed demonstrating still persistent elevation of the right hemidiaphragm although that is chronic interstitial changes which appeared to be chronic. And some degree of ill-defined opacities in the upper lung zones which is new but since be getting better. His baseline x-ray was not normal on the 1st place. He has been on Remicade. His next dose is sometime in January. Will follow-up in a couple weeks. The meantime he is going to increase the prednisone to 20 mg from his baseline 7.5 to try to decrease the inflammatory changes. 12/30/2023 the patient is here for a pulmonary follow-up visit. He is not feeling any better. He did go up to 20 mg of prednisone. He continues on the Remicade. The patient did have a chest x-ray demonstrating interval worsening of the interstitial lung disease primarily the left hemithorax where he was primarily preserved. He does have an elevated right hemidiaphragm. He has been having issues with a portable oxygen concentrator. He did have to go up to 4 L pulse which is fine with activity. He can keep it at 2 L at rest. We talked about deep breathing exercises to make sure that he maximize his the respiratory effort and gas exchange. In view of the worsening pulmonary fibrosis will be a good candidate for Ofev. I will send a prescription to the pharmacy once we get approval. In the meantime pulmonary rehabilitation will be keep. The patient has been on 20 mg of prednisone without any significant changes in his respiratory capacity. Therefore, will start tapering down to his baseline dose 7.5 mg. Will follow-up in 4-6 weeks. 01/31/2024 the patient is here for a pulmonary follow-up visit. The patient still struggling with his breathing. The portable oxygen concentrator is not holding him. We did do a walking oximetry and he actually needs 4 L continuous with activity to maintain a pulse ox of 89% and above. Therefore he understands that we need to switch his POC to regular oxygen tanks. Will request a trial so that we can carry the oxygen little bit better. He is having hard time working because of his oxygen needs in his increased dyspnea. Therefore, will go ahead and repeat his chest x-ray and PFTs see the degree of severity. But my suspicion is that the patient is unlikely going to be able to work with this degree of disease. He recently did start the Ofev to try to minimize the progression of the fibrosis. I hope that he can tolerate the adverse effects which included diarrhea. He will continue on the prednisone although he is cutting down slowly down to 7.5 mg. he also continues on the Remicade as previously prescribed for the sarcoidosis before the severe COVID infection. At this point the patient appears to have progressive disease and unfortunately he is not developing any significant improvement as of yet. When he returns in a couple months after his PFTs and chest x-ray we can better assess his degree of disease and potential prognosis. In the meantime will request the [employer] company to change his oxygen in order for him to have adequate oxygenation and improve gas exchange. [facility] Medical History (Updated 12/08/23 @ 22:16 by Chaparro Da Silva MD) Pneumonia due to COVID-19 virus Pulmonary fibrosis ILD (interstitial lung disease) Bronchomalacia Right inguinal hernia Sarcoidosis Pulmonary nodules Obesity (BMI 30.0-34.9) Bleeding hemorrhoids Leg pain, right LFT elevation Hyperkalemia Glaucoma BPH (benign prostatic hyperplasia) Vitamin D deficiency Hypercholesterolemia Protein S deficiency DVT (deep venous thrombosis) Thrombocytopenia Surgical History History of right inguinal hernia repair Hx of lymph node biopsy Hx of colonoscopy History of umbilical hernia repair History of appendectomy History of sinus surgery Family History Mother No problems noted. Father Medical history unknown Daughter In good health Sister In good health Brother Lung cancer Social History Household Members: Significant Other Housing: House Are you a primary farm or ranch animal caretaker to a significant other at home: No Do you presently have visiting nurse or other home services: No Alcohol intake: current Alcohol intake frequency: holidays/special occasions only Comment: 3x a year 2 drinks Patient Tobacco Use Status: Never used Tobacco e-Cigarette/Vaping Use: Never Used Second Hand Smoke Exposure: No service: No Current occupational status: employed Cognitive needs: No Hearing needs: No Vision needs: Yes Review of Systems Const Denies body aches and Denies fever(s) Eyes Denies change in vision ENT Denies change in voice Card Denies chest pain, Reports dyspnea and Reports dyspnea on exertion Resp Denies chest congestion, Reports cough, Denies hemoptysis, Reports dyspnea, Reports dyspnea on exertion and Denies wheezing GI Denies no additional complaints Musc Reports no additional complaints Skin/Breast Denies new lesions and Reports rash Neuro Reports no additional complaints Endo Denies flushing Sian/Lymph Denies easy bruising and Denies lymphadenopathy Aller/Immun Denies wheezing Physical Exam Const General: comfortable HEENT Head: Yes normocephalic Eyes General: appearance normal, both eyes and all related structures Neck Neck: Yes supple Chest Chest palpation & inspection: normal inspection of the chest Resp Effort & Inspection: normal respiratory effort Auscultation: crackles and diminished lung sounds Cardio Rate: regular rate Rhythm: regular rhythm Heart sounds: S1 normal heart sound present and S2 normal heart sound present GI Auscultation: normal bowel sounds Skin General skin exam: no rashes or lesions noted Extrem General: Yes no clubbing, cyanosis or edema Assessment & Plan Assessment & Plan (1) Pulmonary fibrosis: Comment: 2011 Code(s): J84.10 - Pulmonary fibrosis, unspecified Category: Medical (2) Sarcoid: Comment: 2011 Code(s): D86.9 - Sarcoidosis, unspecified Category: Medical (3) Pulmonary nodules: Code(s): R91.8 - Other nonspecific abnormal finding of lung field Category: Medical (4) Cough: Code(s): R05.9 - Cough, unspecified Category: Medical Qualifiers: Cough type: chronic Qualified Code(s): R05.3 - Chronic cough (5) 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 Needs oxygen tanks and a trolley to transport, taper Prednisone 20mg->15mg->10->7.5mg continue Remicade started OFEV due to he progression of the pulmonary fibrosis CPT with acapella valve PFTs/CXR F/U 2 months Orders: Orders PFT pulmonary function test Today J84.10 - Pulmonary fibrosis, unspecified XR chest 2V Today J84.10 - Pulmonary fibrosis, unspecified Medications: New codeine-guaifenesin 10-100 mg/5 mL 10 mL PO Q6H 10 days PRN 300 mL 0RF cough Coding Level of Care Code Est Pt Level 4 (26066) Complex EM visit Add On G2211 Diagnoses Pulmonary fibrosis J84.10 Sarcoid D86.9 Pulmonary nodules R91.8 Chronic cough R05.3 Cough type: chronic 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
== END 2024-01-31 15:55 | disposition home or self-care (01) ==
PROVIDERS: PCP Internal Medicine; Visit Provider Hospitalist
DX: J84.10 Pulmonary fibrosis, unspecified (principal); D86.9 Sarcoidosis, unspecified; R91.8 Other nonspecific abnormal finding of lung field; R05.3 Chronic cough; Z79.52 Long term (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 of systemic steroids; J98.09 Other diseases of bronchus, not elsewhere classified; U07.1 COVID-19; J12.82 Pneumonia due to coronavirus disease 2019
CPT/HCPCS: 99214; G2211

== ENCOUNTER → 2024-01-31 15:30 | Outpatient (BNVA) | payer OTHER, SELFPAY | PROVIDERS: PCP Internal Medicine; Visit Provider Hospitalist | DX: J84.10 Pulmonary fibrosis, unspecified (principal); D86.9 Sarcoidosis, unspecified; R91.8 Other nonspecific abnormal finding of lung field; J98.09 Other diseases of bronchus, not elsewhere classified; U07.1 COVID-19; J12.82 Pneumonia due to coronavirus disease 2019; R05.3 Chronic cough; Z79.52 Long term (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 of systemic steroids; Z99.81 Dependence on supplemental oxygen | CPT/HCPCS: 99212 ==

== ENCOUNTER 2024-02-17 15:36 | Outpatient (AMB) | payer OTHER, SELFPAY ==
[2024-02-17 15:45] LABS: Prothrombin Time Whole Bld POC 37.8 sec (11.1-13.5); ~PT, ~INR - Anti Coag Clinic 3.2 (0.9-1.1)
--- NOTE | 2024-02-17 15:51 | MHC.OFFVISCO ---
Intake Intake Visit Reasons: Anticoagulation Allergies No Known Allergies [No Known Allergies*] Allergy (Verified 02/17/24 15:38) Medication List - Last Reconciled 02/17/24 by Marcia Dave RN clotrimazole 1% 1 appl topical BID 4 weeks codeine-guaifenesin 10-100 mg/5 mL 10 mL PO Q6H PRN 10 days doxazosin 4 mg PO BEDTIME 90 days finasteride 5 mg PO DAILY 90 days infliximab (Remicade) 336 mg IV Q4W 12 months miconazole nitrate 2% (Zeasorb AF) 1 appl topical BID nintedanib (Ofev) 150 mg PO Q12H 30 days oxybutynin chloride ER 5 mg PO DAILY 30 days Oxygen Home Use As directed prednisolone acetate 1% (Pred Forte) 1 drp ophthalmic (eye) BEDTIME prednisone 7.5 mg (1.5 x 5 mg) PO BEDTIME 30 days triamcinolone acetonide 0.5% 1 appl topical DAILY warfarin (Jantoven) 4 mg See Protocol PO BEDTIME Nursing Note INR 3.2 out of therapeutic range Medications and supplements reviewed Patient status: ON NEW RESP MED X 1 MONTH AND GIVES HIM DIARRHEA- PLUS THE ENSURE DOES TOO - HE WILL DECREASE ENSURE TO 2-3 DAYS / WEEK Medications or supplements: NO NEW CHANGES Diet: OK Denies any signs and symptoms of bleeding or clotting or unusual bruising Bleeding, bruising, clotting discussed Nutritional guidance given: DECREASE THE ENSURE DUE TO GI UPSET Dose: DECREASE TO 2MG X 2 DAYS/ 4MG X 5 DAYS F/U INR Date: 2 WEEKS 03/03/24 ?? Patient verbalizing understanding of instructions given. 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
== END 2024-02-17 15:53 | disposition home or self-care (01) ==
LOC: HO.ACS 15:36
PROVIDERS: PCP Internal Medicine; Visit Provider Internal Medicine
DX: Z79.01 Long term (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 of anticoagulants (principal)

== ENCOUNTER → 2024-02-17 15:36 | Outpatient (BNVA) | payer OTHER, SELFPAY | PROVIDERS: PCP Internal Medicine; Visit Provider Internal Medicine | DX: I82.402 Acute embolism and thrombosis of unspecified deep veins of left lower extremity (principal); Z79.01 Long term (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 of anticoagulants; Z51.81 Encounter for therapeutic drug level monitoring | CPT/HCPCS: 85610; 99211 ==

== ENCOUNTER 2024-02-28 15:29 | Outpatient (AMB) | payer OTHER, SELFPAY ==
--- NOTE | 2024-02-28 15:40 | A.OFFPC_ITS ---
Vital Signs 02/28/24 15:42 Height 5 ft 4 in Weight 161 lb 4 oz BMI 27.7 BP 140/70 H Blood Pressure Location Lt brachial Position Sitting Pulse 79 Pulse Source Pulse Oximeter Pulse Oximetry (%) 90 L Oxygen Delivery Method Nasal Cannula Intake Visit Reasons: BPH, protein Sdeficiency,sarcoidosis,lung disease Intake Note: Patient is here to follow up on BPH, Protein S deficiency, Sarcoidosis, Lung disease. 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: Not Required per policy Accompanied by: Self / Same As Patient Allergies No Known Allergies [No Known Allergies*] Allergy (Verified 02/28/24 15:42) Medication List - Last Reconciled 02/28/24 by Jaz Myers MD clotrimazole 1% 1 appl topical BID 4 weeks doxazosin 4 mg PO BEDTIME 90 days finasteride 5 mg PO DAILY 90 days guaifenesin ER (Mucinex) 600 mg PO Q12H PRN infliximab (Remicade) 336 mg IV Q4W 12 months nintedanib (Ofev) 150 mg PO Q12H 30 days oxybutynin chloride ER 5 mg PO DAILY 30 days Oxygen Home Use As directed prednisolone acetate 1% (Pred Forte) 1 drp ophthalmic (eye) BEDTIME prednisone 7.5 mg (1.5 x 5 mg) PO BEDTIME 30 days warfarin (Jantoven) 4 mg See Protocol PO BEDTIME Tobacco use date assessed: 12/03/23 Dental Screening Dental Screen Date: 07/09/23 HPI BPH, protein Sdeficiency,sarcoidosis,lung disease HPI Details 58-year-old overweight male with a histo ry of sarcoidosis , interstitial lung disease hypercholesterolemia BPH impaired glucose tolerance history of DVT coming in for follow-up. Last seen in October 2023. Patient is due for colonoscopy. With a history of DVT and and protein S deficiency he is on long-term anticoagulation. Patient has seen Pulmonary 01/28/2024 patient continues to struggle with breathing. Had a walking oximetry needing 4 L continuous. . Patient was started on Ofev, Remicade. Patient also follows up with urology seen in January 03. On doxazosin and finasteride due to BPH patient was given a trial of oxybutynin also. went to [place] had pneumonia, [place] - had covid 19 infection. frustrated was not able to see me. pateint speaks in short sentences and very sob, on oxygen [facility] Medical History (Updated 02/07/24 @ 08:13 by Darleen Calabrese MD) Pneumonia due to COVID-19 virus Pulmonary fibrosis ILD (interstitial lung disease) Bronchomalacia Right inguinal hernia Sarcoidosis Pulmonary nodules Obesity (BMI 30.0-34.9) Bleeding hemorrhoids Leg pain, right LFT elevation Hyperkalemia Glaucoma BPH (benign prostatic hyperplasia) Vitamin D deficiency Hypercholesterolemia Protein S deficiency DVT (deep venous thrombosis) Thrombocytopenia Surgical History History of right inguinal hernia repair Hx of lymph node biopsy Hx of colonoscopy History of umbilical hernia repair History of appendectomy History of sinus surgery Family History Mother No problems noted. Father Medical history unknown Daughter In good health Sister In good health Brother Lung cancer Social History Household Members: Significant Other Housing: House Are you a primary field care manager to a significant other at home: No Do you presently have visiting nurse or other home services: No Alcohol intake: current Alcohol intake frequency: holidays/special occasions only Comment: 3x a year 2 drinks Patient Tobacco Use Status: Never used Tobacco e-Cigarette/Vaping Use: Never Used Second Hand Smoke Exposure: No service: No Current occupational status: employed Cognitive needs: No Hearing needs: No Vision needs: Yes Questionnaire Thrive Questionnaire Date Thrive assessed: 10/15/23 SANDRA-7 AMB Questionnaire SANDRA-7 Date SANDRA - 7 assessed: 07/09/23 Source: Developed by Drs. Mason Burton, Irma Morales, Waldemar Mchugh and colleagues, with an educational dc from [employer]. Physical exam (Primary Care) Vital Signs: Last Vital Signs Pulse 79 02/28/24 15:42 BP 140/70 H 02/28/24 15:42 Pulse Ox 90 L 02/28/24 15:42 Oxygen Delivery Method Nasal Cannula 02/28/24 15:42 BMI result Body Mass Index 27.7 Tobacco/Smoking Status: Tobacco use Status Tobacco use date assessed 12/03/23 02/28/24 15:48 Patient Tobacco Use Status Never used Tobacco 02/28/24 15:48 e-Cigarette/Vaping Use Never Used 02/28/24 15:48 Thrive Assessment: Date of Thrive Assessment Date Thrive assessed 10/15/23 02/28/24 15:48 Const General: alert; No acute distress HENMT Other: speaks in short prhases and sob , on oxygen Eyes Conjunctivae: conjunctivae normal Resp Other: decrease breath sounds, no wheezing Cardio Rate: regular rate Rhythm: regular rhythm GI Inspection: Yes normal to inspection Extrem General: Yes normal to inspection and No edema Office Procedures Flu Questionnaire Does the patient have a severe egg allergy?: No Does the patient have severe life threatening allergies?: No Does the patient have a fever or illness today?: No Has the patient ever had Guillain-Kramer Syndrome?: No Has the patient ever had any past reaction to a flu shot?: No Immunizations Fluarix Triv [id number] (PF) 45 mcg (15 mcg x 3)/0.5 mL IM syringe Performing Provider: Jaz Myers MD [facility] Administered by: Sydney Alvarez LPN on 02/28/24 15:58 Dose Route Admin Location Dispensed Lot Number Expiration Date NDC Barrel Handler 0.5 mL IM Right Deltoid 0.5 mL [id number] 11/06/24 [id number] [facility] VIS Given Date VIS Provided VIS Publication Date 02/28/24 Single Vaccine 20 Eligibility Eligibility Date Funding Source Not [facility] Eligible 02/28/24 Private Coding Level of Care Code Est Pt Level 4 (55598) Diagnoses Cough R05 Pulmonary fibrosis J84.10 ILD (interstitial lung disease) J84.9 Sarcoidosis D86.9 Protein S deficiency D68.59 Assessment & Plan Assessment & Plan (1) Cough: Code(s): R05 - Cough Category: Medical Plan: Patient will need referral to ear nose and throat for evaluation. (2) Pulmonary fibrosis: Comment: 2011 Code(s): J84.10 - Pulmonary fibrosis, unspecified Category: Medical Plan: Continue to use the oxygen. Patient follows up with Pulmonary (3) ILD (interstitial lung disease): Code(s): J84.9 - Interstitial pulmonary disease, unspecified Category: Medical Plan: Continue to follow-up with Pulmonary has been placed on OFEV. With this progressive problem and profound hypoxemia patient will need to stop working (4) Sarcoidosis: Comment: dx 2011-follows w/Dr. Da Silva ([facility]) Code(s): D86.9 - Sarcoidosis, unspecified Category: Medical Plan: Continue to follow-up with Pulmonary (5) Protein S deficiency: Code(s): D68.59 - Other primary thrombophilia Category: Medical Plan: Continue with anticoagulation Orders: Orders Influenza [id number] Immunization Today Z23 - Encounter for immunization Referrals Ear/Nose/Throat Referral R05 - Cough Medications: New guaifenesin ER (Mucinex) 600 mg PO Q12H PRN 60 tabs 0RF congestion R05 - Cough
[2024-02-28 15:42] VITALS: BP 140/70; PULSE 79; O2SAT 90; BMI 27.7
== END 2024-02-28 16:12 | disposition home or self-care (01) ==
PROVIDERS: PCP Internal Medicine; Visit Provider Internal Medicine
DX: R05.9 Cough, unspecified (principal); J84.10 Pulmonary fibrosis, unspecified; J84.9 Interstitial pulmonary disease, unspecified; D68.59 Other primary thrombophilia; D86.9 Sarcoidosis, unspecified

== ENCOUNTER → 2024-02-28 15:29 | Outpatient (BNVA) | payer OTHER, SELFPAY | PROVIDERS: PCP Internal Medicine; Visit Provider Internal Medicine | DX: R05.9 Cough, unspecified (principal); J84.10 Pulmonary fibrosis, unspecified; J84.9 Interstitial pulmonary disease, unspecified; D86.9 Sarcoidosis, unspecified; D68.59 Other primary thrombophilia; Z79.01 Long term (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 of anticoagulants; Z23 Encounter for immunization | CPT/HCPCS: 90471; 90656; 99212 ==

== ENCOUNTER 2024-03-02 15:38 | Outpatient (REF) | payer OTHER, SELFPAY ==
[2024-03-02 10:59] VITALS: PULSE 78; RESP 16; O2SAT 91
--- NOTE | 2024-03-02 15:45 | PFT_ITS ---
Flows: FEV1: 52 % of predicted at 1.58 L FVC: 49 % of predicted at 1.86 L FEV1/FVC: 85 % Bronchodilator response: Not performed Volumes: Total lung capacity: 39 % of predicted at 2.31 L Residual volume: 26 % of predicted at 0.46 L Slow vital capacity: 44 % of predicted at 1.86 L Expiratory reserve volume: 69 % of predicted at 0.69 L Diffusion capacity: Severely decreased, adjusts to being moderately decreased after correction for alveolar ventilation. Impression: Severe restrictive ventilatory defect. Bronchodilator testing was not performed. Combination of decreased diffusion capacity with restrictive ventilatory defect suggests underlying pulmonary parenchymal disease. MTDD
== END 2024-03-02 15:39 | disposition home or self-care (01) ==
LOC: HO.RESP 15:38
PROVIDERS: PCP Internal Medicine; Visit Provider Hospitalist
DX: I82.402 Acute embolism and thrombosis of unspecified deep veins of left lower extremity (principal); J84.10 Pulmonary fibrosis, unspecified; Z51.81 Encounter for therapeutic drug level monitoring; Z79.01 Long term (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 of anticoagulants
CPT/HCPCS: 71046; 85610; 94010; 94640; 94727; 94729; 99211

== ENCOUNTER → 2024-03-02 15:45 | Outpatient (BNV) | payer OTHER, SELFPAY | PROVIDERS: PCP Internal Medicine; Visit Provider Internal Medicine Pulmonary Disease | DX: J84.10 Pulmonary fibrosis, unspecified (principal) | CPT/HCPCS: 94060; 94727; 94729 ==

== ENCOUNTER 2024-03-02 16:24 | Outpatient (AMB) | payer OTHER, SELFPAY ==
[2024-03-02 16:41] LABS: Prothrombin Time Whole Bld POC 23.2 sec (11.1-13.5); ~PT, ~INR - Anti Coag Clinic 1.9 (0.9-1.1)
--- NOTE | 2024-03-02 16:43 | MHC.OFFVISCO ---
Intake Intake Visit Reasons: Anticoagulation Allergies No Known Allergies [No Known Allergies*] Allergy (Verified 03/02/24 16:25) Medication List - Last Reconciled 03/02/24 by Marcia Dave RN clotrimazole 1% 1 appl topical BID 4 weeks doxazosin 4 mg PO BEDTIME 90 days finasteride 5 mg PO DAILY 90 days guaifenesin ER (Mucinex) 600 mg PO Q12H PRN infliximab (Remicade) 336 mg IV Q4W 12 months nintedanib (Ofev) 150 mg PO Q12H 30 days oxybutynin chloride ER 5 mg PO DAILY 30 days Oxygen Home Use As directed prednisolone acetate 1% (Pred Forte) 1 drp ophthalmic (eye) BEDTIME prednisone 7.5 mg (1.5 x 5 mg) PO BEDTIME 30 days warfarin (Jantoven) 4 mg See Protocol PO BEDTIME Nursing Note INR 1.9? out of therapeutic range Medications and supplements reviewed Patient status: Pt came by clinic today because he was going for a chest xray if he could be seen today, due to his breathing status pt was seen today to save him a trip of coming to [facility] again tomorrow. SOB breath and coughing on O2 MD aware - he ordered chest xray. Medications or supplements: pt wants to start Cod Liver Oil to help with his breathing - he 1 stsp today and would only take 1 / day/ suggested until further research only take 4 days / week non- on mwf. Per literature it can be a very good supplement to aid with inflammation and other healing properties. there are mixed views as the cod liver oil would raise or lower the INR. Diet: may have had more greens last week due to previous elevated INR Denies any signs and symptoms of bleeding or clotting or unusual bruising Bleeding, bruising, clotting discussed Nutritional guidance given: avoid greens x 3 days Dose: keep same warfarin dose for now 2mg x 2 days/ 4mg x 5 days - more research to be done regarding the cod liver oil and pt may need antbx or other treatment for breathing F/U INR Date : 2 weeks ?? Patient verbalizing understanding of instructions given. Anti-Coag Initial Assessment Social Hx Patient Tobacco Use Status: Never used Tobacco alcohol intake: current Alcohol intake frequency: holidays/special occasions only Coding Level of Care Code Est Patient Level 1 Diagnoses Current use of anticoagulant therapy Z79.01 Results AMB INR Fingerstick AMB INR Fingerstick 1.9 Last Edit by Marcia Dave RN on 03/02/24 16:37 MANUAL ENTRY Assessment & Plan Assessment & Plan (1) Current use of anticoagulant therapy: Code(s): Z79.01 - penitentiary (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
== END 2024-03-02 16:50 | disposition home or self-care (01) ==
LOC: HO.ACS 16:24
PROVIDERS: PCP Internal Medicine; Visit Provider Internal Medicine
DX: Z79.01 Long term (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 of anticoagulants (principal)

== ENCOUNTER 2024-03-07 08:42 | Outpatient (AMB) | payer OTHER, SELFPAY ==
--- NOTE | 2024-03-07 08:34 | MHC.OFFVIS ---
Intake Visit Reasons: 2M Med Review(Oxybutynin) Intake Note: Patient is present for 2m med review(oxybutynin) Urology Medication:doxazosin,finasteride, oxybutynin Antibiotic Allergy:none Blood Thinner:warfarin Rehanger Required: No Allergies No Known Allergies [No Known Allergies*] Allergy (Verified 03/07/24 08:36) HPI Comments Details: Max is a very pleasant male. He is a patient of Dr. Myers. He seen for the following urologic conditions - lower urinary tract symptoms Telemedicine Evaluation 15 min Consultation [employer] Darlene Video Follow-up from oxybutynin trial - still waking 3-4 times per night Trial Nisa Discussed GreenLight laser Cystoscopy - Follow-up on combination therapy of doxazosin and finasteride Prior imaging 85 g prostate Does have some urgency during the day Lower urinary tract symptoms Progressive AUA symptom score initial evaluation 12, 4. Nocturia x3 which is very disruptive Prior trial tamsulosin with minimal impact, trial of doxazosin and finasteride Imaging 85 g prostate with effective bladder emptying PFS Medical History (Updated 03/07/24 @ 10:07 by Ugo Cummings MD) Pneumonia due to COVID-19 virus Pulmonary fibrosis ILD (interstitial lung disease) Bronchomalacia Right inguinal hernia Sarcoidosis Pulmonary nodules Obesity (BMI 30.0-34.9) Bleeding hemorrhoids Leg pain, right LFT elevation Hyperkalemia Glaucoma BPH (benign prostatic hyperplasia) Vitamin D deficiency Hypercholesterolemia Protein S deficiency DVT (deep venous thrombosis) Thrombocytopenia Surgical History History of right inguinal hernia repair Hx of lymph node biopsy Hx of colonoscopy History of umbilical hernia repair History of appendectomy History of sinus surgery Family History Mother No problems noted. Father Medical history unknown Daughter In good health Sister In good health Brother Lung cancer Social History Household Members: Significant Other Housing: House Are you a primary caregiver services home to a significant other at home: No Do you presently have visiting nurse or other home services: No Alcohol intake: current Alcohol intake frequency: holidays/special occasions only Comment: 3x a year 2 drinks Patient Tobacco Use Status: Never used Tobacco e-Cigarette/Vaping Use: Never Used Second Hand Smoke Exposure: No service: No Current occupational status: employed Cognitive needs: No Hearing needs: No Vision needs: Yes Review of Systems Const All systems reviewed & are unremarkable except as noted in HPI and below Reports no additional complaints Resp Reports no additional complaints GI Reports no additional complaints Reports as per HPI Musc Reports no additional complaints Physical Exam Telemedicine evaluation Appropriate responses Regular breathing rate and rhythm HEENT Head: Yes normal to inspection Ears: hearing grossly normal bilaterally Eyes General: appearance normal, both eyes and all related structures Neck Neck: Yes normal visual inspection Chest Chest palpation & inspection: normal inspection of the chest Resp Effort & Inspection: normal respiratory effort and able to speak in complete sentences Telehealth Telehealth Telehealth Platform: [employer] Location of provider rendering services: practice address Location of patient: address on file Patient Identification confirmed using: Name, : Yes Telehealth method: video Patient verbally consented to treatment: Yes Patient verbally consented to billing insurance company: Yes Patient informed of any privacy concerns related to visit: Yes Minutes spent on Phone/Video with Pt.: 15 Assessment & Plan Assessment & Plan (1) Nocturia: Code(s): R35.1 - Nocturia Category: Medical (2) BPH (benign prostatic hyperplasia): Comment: Prostate 85 cc Code(s): N40.0 - Benign prostatic hyperplasia without lower urinary tract symptoms Category: Medical Qualifiers: Lower urinary tract symptom presence: symptoms present Lower urinary tract symptom detail: urinary frequency Qualified Code(s): N40.1 - Benign prostatic hyperplasia with lower urinary tract symptoms; R35.0 - Frequency of micturition (3) Frequency of micturition: Code(s): R35.0 - Frequency of micturition Category: Medical Plan Trial [facility] month follow-up Medications: New fesoterodine ER (Toviaz) 8 mg PO DAILY 30 days 30 tabs 1RF N32.0 - Bladder-neck obstruction, N39.41 - Urge incontinence, R35.1 - Nocturia Patient Instructions: Imaging studies, laboratory and physical exam results were discussed and reviewed in detail. No major barriers to patient understanding were identified. An opportunity to ask questions regarding the treatment plan was provided. All questions were answered. The patient expressed understanding and agreement with the above treatment plan. The patient is aware they should contact our office by phone for worsening of their current condition or the appearance of new urologic symptoms. Compliance is encouraged with any medications and followup testing that is ordered. It is a privilege to participate in the urologic care of your patient. If you have any questions or concerns regarding treatment for the above conditions, or other urologic issues, please do not hesitate to contact me. The office telephone contact is [phone]. This note is constructed using voice recognition software. While every effort has been made to ensure accuracy instrument and control service person errors may have been included. Yours sincerely, Dr Ugo Cummings MD, [facility] - Urology Providers of Expert, Compassionate Care for the Genitourinary System Coding Level of Care Code Tele Est Pt Level 4 (30942) Diagnoses Nocturia R35.1 Benign prostatic hyperplasia with urinary frequency N40.1; R35.0 Lower urinary tract symptom presence: symptoms present Lower urinary tract symptom detail: urinary frequency Frequency of micturition R35.0
== END 2024-03-07 10:12 | disposition home or self-care (01) ==
LOC: HO.HUSH 08:42
PROVIDERS: PCP Internal Medicine; Visit Provider Urology
DX: N40.1 Benign prostatic hyperplasia with lower urinary tract symptoms (principal); R35.1 Nocturia; R35.0 Frequency of micturition
CPT/HCPCS: 99214

== ENCOUNTER → 2024-03-07 08:42 | Outpatient (BNVA) | payer OTHER, SELFPAY | PROVIDERS: PCP Internal Medicine; Visit Provider Urology ==

== ENCOUNTER 2024-03-17 15:25 | Outpatient (AMB) | payer OTHER, SELFPAY ==
[2024-03-17 15:31] LABS: Prothrombin Time Whole Bld POC 23.7 sec (11.1-13.5)
--- NOTE | 2024-03-17 15:36 | MHC.OFFVISCO ---
Intake Intake Visit Reasons: Anticoagulation Allergies No Known Allergies [No Known Allergies*] Allergy (Verified 03/17/24 15:26) Medication List - Last Reconciled 03/17/24 by Mami Springer RN clotrimazole 1% 1 appl topical BID 4 weeks doxazosin 4 mg PO BEDTIME 90 days fesoterodine ER (Toviaz) 8 mg PO DAILY 30 days finasteride 5 mg PO DAILY 90 days guaifenesin ER (Mucinex) 600 mg PO Q12H PRN infliximab (Remicade) 336 mg IV Q4W 12 months nintedanib (Ofev) 150 mg PO Q12H 30 days oxybutynin chloride ER 5 mg PO DAILY 30 days Oxygen Home Use As directed prednisolone acetate 1% (Pred Forte) 1 drp ophthalmic (eye) BEDTIME prednisone 7.5 mg (1.5 x 5 mg) PO BEDTIME 30 days warfarin (Jantoven) 4 mg See Protocol PO BEDTIME Nursing Note Pt to ACS on portable oxygen coming from [facility] after receiving infusion of remicade. INR: 2.0 in therapeutic range 2-3 Medications and supplements reviewed No changes in health, diet, medications, or supplements, Denies any signs and symptoms of bleeding or bruising or clotting. Bleeding, bruising, clotting discussed Nutritional guidance given. Pt states his appetite is poor and he hasn't been taking ensure because it lowers the INR. Pt instructed to have it and that we would increase the dose of warfarin if necessary Dose: increased to 2mg X 1 day (instead of 2 days) and 4mg X 6 days F/U INR: 2 weeks Patient verbalizes understanding of instructions given Anti-Coag Initial Assessment Social Hx Patient Tobacco Use Status: Never used Tobacco alcohol intake: current Alcohol intake frequency: holidays/special occasions only Coding Level of Care Code Est Patient Level 1 Diagnoses Current use of anticoagulant therapy Z79.01 Results AMB INR Fingerstick AMB INR Fingerstick 2.0 Last Edit by Mami Springer RN on 03/17/24 15:31 interface delay Assessment & Plan Assessment & Plan (1) Current use of anticoagulant therapy: Code(s): Z79.01 - utility bill complaints investigator (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
== END 2024-03-17 15:42 | disposition home or self-care (01) ==
LOC: HO.ACS 15:25
PROVIDERS: PCP Internal Medicine; Visit Provider Internal Medicine
DX: Z79.01 Long term (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 of anticoagulants (principal)

== ENCOUNTER → 2024-03-17 15:25 | Outpatient (BNVA) | payer OTHER, SELFPAY | PROVIDERS: PCP Internal Medicine; Visit Provider Internal Medicine | DX: I82.402 Acute embolism and thrombosis of unspecified deep veins of left lower extremity (principal); Z79.01 Long term (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 of anticoagulants; Z51.81 Encounter for therapeutic drug level monitoring | CPT/HCPCS: 85610; 99211 ==

== ENCOUNTER 2024-03-27 15:22 | Outpatient (AMB) | payer OTHER, SELFPAY ==
--- NOTE | 2024-03-27 15:24 | MHC.OFFVIS ---
Vital Signs 03/27/24 15:25 Height 5 ft 4 in Weight 159 lb 13.362 oz BMI 27.4 BP 142/82 H Blood Pressure Location Lt brachial Position Sitting Pulse 88 Pulse Source Doppler Pulse Oximetry (%) 94 Oxygen Delivery Method Nasal Cannula Oxygen Flow Rate 3 Intake Visit Reasons: Pulm Fibrosis Allergies No Known Allergies [No Known Allergies*] Allergy (Verified 03/27/24 15:28) HPI Comments Details: The patient is a 58-year-old gentleman with a known history of sarcoidosis. 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 At that point he also had a rash on the face. The patient was noted to have lupus pernio. He did have a biopsy-proven sarcoidosis. The patient did have a CT scan of the chest demonstrating pulmonary nodules and also lymphadenopathy. Although the diagnosis of sarcoid was made based on the skin biopsy. I do not have those results is all per the patient. The patient then was followed by a local associate professor of communication. He was placed on prednisone. Ultimately more recently than that the patient start having worsening shortness of breath and cough. Was then placed on methotrexate up to 8 tablets of the 2.5 mg weekly. However after he started the methotrexate he has been noticing worsening cough and shortness of breath. He did have a recent chest x-ray done at the [facility] which I personally reviewed. It appears that he has a chronically elevated right hemidiaphragm but now appears to have more hazy opacities bilaterally suggesting pneumonitis. I did compare that to his previous x-ray from October which she did not have the degree of pneumonitis as he has now. Therefore I am concerned that he is having some adverse effects of the methotrexate. Assess as far as I know the only involvement of the sarcoid has been his lungs his skin and also the uveitis. 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 It is likely that the thrombotic issues are also related to sarcoidosis. He denies any other involvement of any other end-organ. We did review his blood work his total bili is a little elevated and he has had issues with liver in the past. But is hard to know for sure if is related to sarcoid any other etiology. The patient complains that his cough is very significant. He had call the on-call physician was given Tessalon Perles without any significant improvement. For now while we deal with his active sarcoid issue go ahead and give her some codeine cough syrup patient does use state Travis often at nighttime to make sure that he can stop coughing. 08/03/2022 the patient is here for a pulmonary follow-up visit. He still the same. He still complains of cough and some chest congestion. The mucus is yellowish and whitish in color. Fhvm-gw-xwiznuux severity. Did have worse at nighttime. The patient did switch over to mycophenolate from methotrexate. Seems to be tolerating it although still low dose of 100 mg twice a day. Was able to cut down the prednisone from 20 mg to 10 mg which is reassuring. Will continue to optimize his sarcoid therapy by increasing the mycophenolate to 1000 mg twice a day and also decreasing the prednisone some 0.5 mg. He also will going to go very slowly to make sure that he is able to decrease her dose effectively. We did review his CT scan of the chest demonstrating significant interstitial lung disease and pulmonary nodules when compared to his CT scan from 2014. He also had pulmonary function studies demonstrating a moderate restrictive ventilatory defect. In part he does have an elevated right hemidiaphragm that is resulting in diminished lung capacity. At this point will continue to maintain him on therapy to make sure that he does not have any progression of the scarring if is due to the sarcoidosis. 11/06/2022 the patient is here for a pulmonary follow-up visit. He continues with his ongoing chest congestion and cough. Moderate severity. Worse at nighttime. Has not responded to the respiratory therapy or the immunosuppressive therapy. He does bring up chest congestion although have been able to get a culture. We did review his CT scan of the chest. The patient does have normal findings. Based on his ongoing cough and his lack of response to his current therapy will plan to perform bronchoscopy. He does have pertinent S deficiency with hypercoagulable state and currently on Coumadin. I will be working with the Coumadin clinic in order to get him ready for the procedure. 01/29/2023 the patient is here for apulmonary follow up visit. Complaining that the cough is no better. Moderate in severity. Patient did have significant evidence of bronchomalacia. This is likely contributing to his significant cough. He also had moderate mucoid secretions that were suction. Patient is cultures were all negative. His endobronchial biopsies were negative for any sarcoidosis. Unfortunate patient continues to cough. Explained to him that the issue is the collapsing of the airways. At this point will start him on CPT with the Acapella valve to help him clear secretions. The patient will continue with current respiratory therapy. He will start cough suppressant. 05/06/2023 the patient has a telehealth visit today. He has not recovering from a viral syndrome on home. He is feeling better. He continues on the prednisone 7.5 mg daily and also continues on the mycophenolate. Seems to be tolerating therapy well and his blood sugars have been okay. In regards of his respiratory symptoms he has been coughing a little more secondary to the viral syndrome her eihg-ds-tisorvqr severity. Otherwise feels well he does need any additional therapies at this time. Will plan to repeat his CT scan in 3 months' time year from his last 1 to see the progression of his underlying nodular densities and interstitial lung disease. 08/13/2023 the patient is here for pulmonary follow-up visit. The patient continues have a cough. The cough is moderate severe. He is tried multiple medications without any significant improvement. In regards of the sarcoidosis the patient has been on the chronic prednisone and also has been on mycophenolate 2 g a day. He is noticed also worsening dyspnea on exertion. Lcnu-uw-blgprtbf severity. He did have a CT scan of the chest which we personally reviewed. It appears it has interval worsening of the pulmonary fibrosis which is concerning. He is already on high dose of mycophenolate and on chronic prednisone. Will go ahead and give him a prednisone taper to see if we can improve the symptoms. In the meantime we talked about other alternative therapies such as Remicade. The patient is open to trying these medications. Will go ahead and request blood work to make sure that he can start the therapy as soon as possible. I also did offer him a 2nd opinion at the sarcoid Clinic at [facility]. However, the patient is concerned about the drive. Will continue to discuss that. Specially in view of the worsening fibrosis. We did go for 6 minute walk test the patient did desaturate down to 87% with activity on room air. Did qualify for a conserving device at 2 L pulse. Will go ahead and request a concentrator and portable oxygen concentrator through [employer]. 10/26/2023 the patient is here for pulmonary follow-up visit. Overall the patient has been doing well. He is still coughing though. Moderate severity. Denies any shortness of breath. He was switched over to Remicade because he continued to have progression of the interstitial lung disease even on high doses of the mycophenolate. He seems to be tolerating medication well infusions are going well without any adverse effects. Will plan to repeat an x-ray in the next few months to see if there is any progression. Although his respiratory exam is indeed better this time. His cough is mainly in upper airway cough syndrome. Will try to treat him with Sudafed and also 1st generation antihistamines to see if we can settle down the cough. He is tried multiple other wtai-atr-uocubyw medications in prescription medication without any significant improvement. Follow-up in 3 months. 12/08/2023 the patient is here for hospital follow-up visit. The patient was developing worsening respiratory symptoms and he was admitted to [facility]. He had a CT scan of the chest there which I do not have available but the patient described it as rito out. Likely significant diffuse pneumonitis. The patient initially tested negative for COVID on the nasal swab but he did have a bronchoscopy that were positive for COVID. Therefore he was treated for COVID pneumonitis and pneumonia. He was placed on oxygen. He is prednisone was increased from 7.5 2 higher amount. He was subsequently discharged on a prednisone taper. The patient is still having hard time breathing he is using oxygen. We did give him a portable oxygen concentrator to use after, but, the patient has had a hard time with it. Since that is working. We did call the DME so they can look at it. In the meantime we placed him on oxygen which did help. The patient is still working. He has hard time not working and therefore he needs to have the oxygen order to continue his working activities. He did have a chest x-ray today which I personally reviewed demonstrating still persistent elevation of the right hemidiaphragm although that is chronic interstitial changes which appeared to be chronic. And some degree of ill-defined opacities in the upper lung zones which is new but since be getting better. His baseline x-ray was not normal on the 1st place. He has been on Remicade. His next dose is sometime in January. Will follow-up in a couple weeks. The meantime he is going to increase the prednisone to 20 mg from his baseline 7.5 to try to decrease the inflammatory changes. 12/30/2023 the patient is here for a pulmonary follow-up visit. He is not feeling any better. He did go up to 20 mg of prednisone. He continues on the Remicade. The patient did have a chest x-ray demonstrating interval worsening of the interstitial lung disease primarily the left hemithorax where he was primarily preserved. He does have an elevated right hemidiaphragm. He has been having issues with a portable oxygen concentrator. He did have to go up to 4 L pulse which is fine with activity. He can keep it at 2 L at rest. We talked about deep breathing exercises to make sure that he maximize his the respiratory effort and gas exchange. In view of the worsening pulmonary fibrosis will be a good candidate for Ofev. I will send a prescription to the pharmacy once we get approval. In the meantime pulmonary rehabilitation will be keep. The patient has been on 20 mg of prednisone without any significant changes in his respiratory capacity. Therefore, will start tapering down to his baseline dose 7.5 mg. Will follow-up in 4-6 weeks. 01/31/2024 the patient is here for a pulmonary follow-up visit. The patient still struggling with his breathing. The portable oxygen concentrator is not holding him. We did do a walking oximetry and he actually needs 4 L continuous with activity to maintain a pulse ox of 89% and above. Therefore he understands that we need to switch his POC to regular oxygen tanks. Will request a trial so that we can carry the oxygen little bit better. He is having hard time working because of his oxygen needs in his increased dyspnea. Therefore, will go ahead and repeat his chest x-ray and PFTs see the degree of severity. But my suspicion is that the patient is unlikely going to be able to work with this degree of disease. He recently did start the Ofev to try to minimize the progression of the fibrosis. I hope that he can tolerate the adverse effects which included diarrhea. He will continue on the prednisone although he is cutting down slowly down to 7.5 mg. he also continues on the Remicade as previously prescribed for the sarcoidosis before the severe COVID infection. At this point the patient appears to have progressive disease and unfortunately he is not developing any significant improvement as of yet. When he returns in a couple months after his PFTs and chest x-ray we can better assess his degree of disease and potential prognosis. In the meantime will request the [employer] to change his oxygen in order for him to have adequate oxygenation and improve gas exchange. 03/27/2024 the patient is here for a pulmonary follow-up visit. Since we last spoke the patient was able to decrease the prednisone to 7.5 mg daily. in addition to that he continues on Remicade. Recently he was started on Ofev. Seems to be tolerating it just some episodes of diarrhea but the patient is adjusting well. He did undergo a recent chest x-ray which still shows significant interstitial lung disease and decreased lung volumes. Pretty similar to previous. And his PFTs again demonstrating significant restriction with also severe diffusion impairment. The patient be a great candidate for pulmonary rehabilitation at this time. saw him in the program he may need to have malaise since he is still working full-time. At this point is conditions pretty advanced. She understands that. Will go ahead and refer him [place] to see if any other medication adjustment could be provided for him to see if any improvements can be facilitated. But also because if not if he has any evidence of any progression he would also be a good candidate for lung transplantation evaluation. Therefore will refer him to [facility] in order to start the process. He still is in the oxygen although the oxygen tanks are very heavy for him to carry. I had him doing repeat conserving device trial. On 4 L pulse he was able to maintain a pulse ox of 90% He rather use the POC because of better portability outside of the home. will go ahead and try again. I will send a script to the [facility] to switch him again to the POC at least he knows what he can expect since he had been on 1 before. will continue to monitor his progress and will await the referral evaluation in [place]. [facility] Medical History (Updated 03/14/24 @ 20:59 by Ugo Cummings MD) Pneumonia due to COVID-19 virus Pulmonary fibrosis ILD (interstitial lung disease) Bronchomalacia Right inguinal hernia Sarcoidosis Pulmonary nodules Obesity (BMI 30.0-34.9) Bleeding hemorrhoids Leg pain, right LFT elevation Hyperkalemia Glaucoma BPH (benign prostatic hyperplasia) Vitamin D deficiency Hypercholesterolemia Protein S deficiency DVT (deep venous thrombosis) Thrombocytopenia Surgical History History of right inguinal hernia repair Hx of lymph node biopsy Hx of colonoscopy History of umbilical hernia repair History of appendectomy History of sinus surgery Family History Mother No problems noted. Father Medical history unknown Daughter In good health Sister In good health Brother Lung cancer Social History Household Members: Significant Other Housing: House Are you a primary care companion to a significant other at home: No Do you presently have visiting nurse or other home services: No Alcohol intake: current Alcohol intake frequency: holidays/special occasions only Comment: 3x a year 2 drinks Patient Tobacco Use Status: Never used Tobacco e-Cigarette/Vaping Use: Never Used Second Hand Smoke Exposure: No service: No Current occupational status: employed Cognitive needs: No Hearing needs: No Vision needs: Yes Review of Systems Const Denies body aches and Denies fever(s) Eyes Denies change in vision ENT Denies change in voice Card Denies chest pain, Reports dyspnea and Reports dyspnea on exertion Resp Denies chest congestion, Reports cough, Denies hemoptysis, Reports dyspnea, Reports dyspnea on exertion and Denies wheezing GI Denies no additional complaints Musc Reports no additional complaints Skin/Breast Denies new lesions and Reports rash Neuro Reports no additional complaints Endo Denies flushing Sina/Lymph Denies easy bruising and Denies lymphadenopathy Aller/Immun Denies wheezing Physical Exam Vital Signs: Last Vital Signs Pulse 88 03/27/24 15:25 BP 142/82 H 03/27/24 15:25 Pulse Ox 94 03/27/24 15:25 Oxygen Delivery Method Nasal Cannula 03/27/24 15:25 Oxygen Flow Rate 3 03/27/24 15:25 BMI result Body Mass Index 27.4 Const General: comfortable HEENT Head: Yes normocephalic Eyes General: appearance normal, both eyes and all related structures Neck Neck: Yes supple Chest Chest palpation & inspection: normal inspection of the chest Resp Effort & Inspection: normal respiratory effort Auscultation: crackles and diminished lung sounds Cardio Rate: regular rate Rhythm: regular rhythm Heart sounds: S1 normal heart sound present and S2 normal heart sound present GI Auscultation: normal bowel sounds Skin General skin exam: no rashes or lesions noted Extrem General: Yes no clubbing, cyanosis or edema Office Procedures 6 Minute Walk Time:: 23:21 SPO2 % at rest: 90 Pulse at rest: 78 SPO2 % during excercise: 86 Pulse during excercise: 90 Distance in yards walked: 100 Nancy Score: 5 Supplemental Oxygen: desaturated quickly with minimal activity to 86%, placed on POC and titrated up to 4l/pulse mainataining POx 91% with activity 90210 - 6 Minute Walk Assessment & Plan Assessment & Plan (1) Pulmonary fibrosis: Comment: 2011 Code(s): J84.10 - Pulmonary fibrosis, unspecified Category: Medical (2) Sarcoid: Comment: 2011 Code(s): D86.9 - Sarcoidosis, unspecified Category: Medical (3) Pulmonary nodules: Code(s): R91.8 - Other nonspecific abnormal finding of lung field Category: Medical (4) Cough: Code(s): R05.9 - Cough, unspecified Category: Medical Qualifiers: Cough type: chronic Qualified Code(s): R05.3 - Chronic cough (5) 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 [place] Silva [place] [place] Code(s): D86.9 - Sarcoidosis, unspecified Category: Medical Plan REVISION: oxygen 2l/pulse at rest and 4L/pulse with activity taper Prednisone 20mg->15mg->10->7.5mg continue Remicade continue OFEV due to he progression of the pulmonary fibrosis CPT with acapella valve start Pulmonary rehab referral [facility] Pulmonary for evaluation. 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
[2024-03-27 15:25] VITALS: BP 142/82; PULSE 88; O2SAT 94; BMI 27.4
[2024-03-27 23:20] VITALS: PULSE 78; O2SAT 90
== END 2024-03-27 15:50 | disposition home or self-care (01) ==
PROVIDERS: PCP Internal Medicine; Visit Provider Hospitalist
DX: J84.10 Pulmonary fibrosis, unspecified (principal); D86.9 Sarcoidosis, unspecified; R91.8 Other nonspecific abnormal finding of lung field; R05.3 Chronic cough; Z79.52 Long term (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 of systemic steroids; J98.09 Other diseases of bronchus, not elsewhere classified; U07.1 COVID-19; J12.82 Pneumonia due to coronavirus disease 2019; J84.9 Interstitial pulmonary disease, unspecified
CPT/HCPCS: 94618; 99214; G2211

== ENCOUNTER → 2024-03-27 15:22 | Outpatient (BNVA) | payer OTHER, SELFPAY | PROVIDERS: PCP Internal Medicine; Visit Provider Hospitalist | DX: J84.10 Pulmonary fibrosis, unspecified (principal); J84.9 Interstitial pulmonary disease, unspecified; J98.09 Other diseases of bronchus, not elsewhere classified; U07.1 COVID-19; J12.82 Pneumonia due to coronavirus disease 2019; D86.9 Sarcoidosis, unspecified; R91.8 Other nonspecific abnormal finding of lung field; Z79.52 Long term (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 of systemic steroids; Z99.81 Dependence on supplemental oxygen | CPT/HCPCS: 94618; 99212 ==

== ENCOUNTER 2024-03-31 15:46 | Outpatient (AMB) | payer OTHER, SELFPAY ==
[2024-03-31 15:52] LABS: Prothrombin Time Whole Bld POC 29.4 sec (11.1-13.5); ~PT, ~INR - Anti Coag Clinic 2.5 (0.9-1.1)
--- NOTE | 2024-03-31 15:54 | MHC.OFFVISCO ---
Intake Intake Visit Reasons: Anticoagulation Allergies No Known Allergies [No Known Allergies*] Allergy (Verified 03/31/24 15:46) Medication List - Last Reconciled 03/31/24 by Paz Paiz RN clotrimazole 1% 1 appl topical BID 4 weeks doxazosin 4 mg PO BEDTIME 90 days fesoterodine ER (Toviaz) 8 mg PO DAILY 30 days finasteride 5 mg PO DAILY 90 days guaifenesin ER (Mucinex) 600 mg PO Q12H PRN infliximab (Remicade) 336 mg IV Q4W 12 months nintedanib (Ofev) 150 mg PO Q12H 30 days oxybutynin chloride ER 5 mg PO DAILY 30 days Oxygen Home Use As directed prednisolone acetate 1% (Pred Forte) 1 drp ophthalmic (eye) BEDTIME prednisone 7.5 mg (1.5 x 5 mg) PO BEDTIME 30 days warfarin (Jantoven) 4 mg See Protocol PO BEDTIME Nursing Note NO CP,SOB,DIET/MED CHANGES,FALLS OR SX OF BLEEDING. CONTINUE PRESENT DOSE AND FOLLOW-UP IN 3 WEEKS. GOOD UNDERSTANDING OF DOSING INSTR. Anti-Coag Initial Assessment Social Hx Patient Tobacco Use Status: Never used Tobacco alcohol intake: current Alcohol intake frequency: holidays/special occasions only Coding Level of Care Code Est Patient Level 1 Diagnoses Current use of anticoagulant therapy Z79.01 Assessment & Plan Assessment & Plan (1) Current use of anticoagulant therapy: Code(s): Z79.01 - [facility] (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
== END 2024-03-31 15:58 | disposition home or self-care (01) ==
LOC: HO.ACS 15:46
PROVIDERS: PCP Internal Medicine; Visit Provider Internal Medicine
DX: Z79.01 Long term (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 of anticoagulants (principal)

== ENCOUNTER → 2024-03-31 15:46 | Outpatient (BNVA) | payer OTHER, SELFPAY | PROVIDERS: PCP Internal Medicine; Visit Provider Internal Medicine | DX: I82.402 Acute embolism and thrombosis of unspecified deep veins of left lower extremity (principal); Z79.01 Long term (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 of anticoagulants; Z51.81 Encounter for therapeutic drug level monitoring | CPT/HCPCS: 85610; 99211 ==

== ENCOUNTER 2024-04-14 11:16 | Outpatient (AMB) | payer OTHER, SELFPAY ==
[2024-04-14 11:20] VITALS: BP 138/90; PULSE 87; O2SAT 91; BMI 28.3
--- NOTE | 2024-04-14 11:20 | A.OFFPC_ITS ---
Vital Signs 04/14/24 11:20 Height 5 ft 3 in Weight 160 lb BMI 28.3 BP 138/90 H Blood Pressure Location Lt brachial Position Sitting Pulse 87 Pulse Source Pulse Oximeter Pulse Oximetry (%) 91 L Oxygen Delivery Method Nasal Cannula Intake Visit Reasons: Annual Exam Allergies No Known Allergies [No Known Allergies*] Allergy (Verified 04/14/24 11:20) Medication List - Last Reconciled 04/14/24 by Jaz Myers MD clotrimazole 1% 1 appl topical BID 4 weeks doxazosin 4 mg PO BEDTIME 90 days fesoterodine ER (Toviaz) 8 mg PO DAILY 30 days finasteride 5 mg PO DAILY 90 days guaifenesin ER (Mucinex) 600 mg PO Q12H PRN infliximab (Remicade) 336 mg IV Q4W 12 months nintedanib (Ofev) 150 mg PO Q12H 30 days oxybutynin chloride ER 5 mg PO DAILY 30 days Oxygen Home Use As directed prednisolone acetate 1% (Pred Forte) 1 drp ophthalmic (eye) BEDTIME prednisone 7.5 mg (1.5 x 5 mg) PO BEDTIME 30 days warfarin (Jantoven) 4 mg See Protocol PO BEDTIME Tobacco use date assessed: 12/03/23 Dental Screening Dental Screen Date: 07/09/23 HPI Annual Exam HPI Details The patient is a 58-year-old male presenting with pulmonary fibrosis, hypercholesterolemia, benign prostatic hyperplasia (BPH), and other chronic conditions for an assessment and management plan. He has a history of pulmonary fibrosis managed on Remicade, and recently commenced on Ofev with decreased doses of prednisone. The patient experienced post-COVID anosmia and ageusia per sisting beyond the acute infection phase. He presents with BPH, measuring 85cc, managed on doxazosin and Tovias, with noted nocturia and marginal improvement, culminating in a potential need for surgical intervention if medication remains ineffective. Accompanying the BPH is a past episode of nephrolithiasis and DVT, managed with chronic anticoagulation therapy (Coumadin). The patient?s hypercholesterolemia is well-controlled with a recent cholesterol level of 104 mg/dL. A pattern of mildly low platelets and elevated serum potassium noted in prior assessments. Impaired glucose tolerance is also documented, with recent elevations in blood sugar levels(patient is on steroids). Regarding sarcoidosis, the patient complains of ocular concerns related to sarcoidosis involvement, though no acute inflammatory response is evident currently. Additionally, the patient seeks further control of his fatty liver disease and is being referred for further specialist input and pulmonary rehabilitation. - Colonoscopy conducted in April 2021 with benign tubular adenoma; repeat advised every three years. - Last blood work was in December 2023 [facility] normal counts except mildly low platelet count and hyperkalemia. - Last cholesterol check in June yielded favorable results. - Thyroid function tested in June normal TSH at 0.54 mIU/L. - Recent eye examination in January 27. - Tetanus vaccination pending; last dose received in 2013. - Completed flu and pneumonia vaccines. - Respiratory: Reports persistent anosmi a and ageusia post-COVID infection. - Genitourinary: Reports nocturia despit e current pharmaceutical management. - Musculoskeletal: Denies musculoskeleta l pain. - Neurological: Denies headaches or othe r neurological disturbances. [facility] Medical History (Updated 04/14/24 @ 12:06 by Jaz Myers MD) Pneumonia due to COVID-19 virus Pulmonary fibrosis ILD (interstitial lung disease) Bronchomalacia Right inguinal hernia Sarcoidosis Pulmonary nodules Obesity (BMI 30.0-34.9) Bleeding hemorrhoids Leg pain, right LFT elevation Hyperkalemia Glaucoma BPH (benign prostatic hyperplasia) Vitamin D deficiency Hypercholesterolemia Protein S deficiency DVT (deep venous thrombosis) Thrombocytopenia Surgical History History of right inguinal hernia repair Hx of lymph node biopsy Hx of colonoscopy History of umbilical hernia repair History of appendectomy History of sinus surgery Family History Mother No problems noted. Father Medical history unknown Daughter In good health Sister In good health Brother Lung cancer Social History Household Members: Significant Other Housing: House Are you a primary care coordinator to a significant other at home: No Do you presently have visiting nurse or other home services: No Alcohol intake: current Alcohol intake frequency: holidays/special occasions only Comment: 3x a year 2 drinks Patient Tobacco Use Status: Never used Tobacco Tobacco use type: Cigarette e-Cigarette/Vaping Use: Never Used Second Hand Smoke Exposure: No service: No Current occupational status: employed Cognitive needs: No Hearing needs: No Vision needs: Yes Questionnaire PHQ-9 Over the last 2 weeks, how often have you been bothered by any of the following problems? 1. Little interest or pleasure in doing things: not at all 2. Feeling down, depressed, or hopeless: not at all 3. Trouble falling or staying asleep, or sleeping too much: not at all 4. Feeling tired or having little energy: not at all 5. Poor appetite or overeating: not at all 6. Feeling bad about yourself - or that you are a failure or have let yourself or your family down: not at all 7. Trouble concentrating on things, such as reading the newspaper or watching television: not at all 8. Moving or speaking so slowly that other people could have noticed. Or the opposite - being so fidgety or restless that you have been moving around a lot more than usual: not at all 9. Thoughts that you would be better off or of hurting yourself in some way: not at all Total score: 0 Depression Screening Interpretation: Negative Depression Screening Done: Yes Source: Developed by Drs. Mason Burton, Irma Morales, Waldemar Mchugh and colleagues, with an educational dc from [employer]. Thrive Questionnaire Date Thrive assessed: 10/15/23 AUDIT C Alcohol Use Questionnaire (AUDIT-C) 1. How often do you have a drink containing alcohol?: Monthly or less 2. How many drinks containing alcohol do you have on a typical day when you are drinking?: 1 or 2 3. How often do you have six or more drinks on one occasion?: Never Total Score: 1 SANDRA-7 AMB Questionnaire SANDRA-7 Date SANDRA - 7 assessed: 07/09/23 Source: Developed by Drs. Mason Burton, Irma Morales, Waldemar Mchugh and colleagues, with an educational dc from [employer]. Review of Systems Const Denies poor appetite and Denies weakness Eyes Denies no additional complaints ENT Reports Normal hearing present, Denies dizziness, Denies nasal congestion, Denies tinnitus and Denies sore throat Card Denies chest pain, Denies syncope and Denies rapid heart rate GI Denies change in stool character, Reports constipation, Denies diarrhea, Denies nausea and Denies vomiting Denies dysuria and Denies urinary frequency Neuro Reports Normal hearing present, Denies confusion, Denies dizziness, Denies syncope and Denies weakness Psych Denies confusion Physical exam (Primary Care) Vital Signs: Last Vital Signs Pulse 87 04/14/24 11:20 BP 138/90 H 04/14/24 11:20 Pulse Ox 91 L 04/14/24 11:20 Oxygen Delivery Method Nasal Cannula 04/14/24 11:20 BMI result Body Mass Index 28.3 Tobacco/Smoking Status: Tobacco use Status Tobacco use date assessed 12/03/23 04/14/24 11:24 Patient Tobacco Use Status Never used Tobacco 04/14/24 11:24 Tobacco use type Cigarette 04/14/24 11:24 e-Cigarette/Vaping Use Never Used 04/14/24 11:24 PHQ-9: PHQ-9 Score PHQ-9: Total score 0 04/14/24 11:24 Depression Screening Interpretation: Negative Thrive Assessment: Date of Thrive Assessment Date Thrive assessed 10/15/23 04/14/24 11:24 Const General: No confusion Orientation/consciousness: No confusion HENMT Head: Yes normocephalic Ears: external ears normal and TM's normal bilaterally Face and sinus: Yes normal facial exam Mouth: moist mucous membranes Throat: Yes tonsils normal Eyes Other: Patient has the left eye pupil irregular, while the right reacts to light Conjunctivae: conjunctivae normal Pupils: Pupil accommodation reflex normal Direct Ophthalmoscopy: normal light reflex Neck Neck: No lymphadenopathy Thyroid: Thyroid normal Resp Other: Decreased breath sounds Cardio Rate: regular rate Rhythm: regular rhythm Peripheral pulses: radial pulses present and dorsalis pedis present GI Other: Rectal exam held due to upcoming colonoscopy referral Palpation (GI): no masses Auscultation: normal bowel sounds and normoactive bowel sounds Rectal Exam - Male: Yes deferred Other: Noted to have scaly rash on the right groin Male General Exam: Yes normal external exam Skin General skin exam: no rashes or lesions noted Rashes: no rashes Neuro General: No confusion Cranial nerves: Yes Normal hearing present Cognition (Neuro): normal cognition Gait exam (Neuro): Normal gait present Motor exam (neuro): 5/5 motor strength present throughout Deep tendon reflexes (DTR's): Right brachioradialis reflex intensity grade: 2+, Left brachioradialis reflex intensity grade: 2+, Right patellar reflex intensity grade: 2+ and Left patellar reflex intensity grade: 2+ Extrem General: No edema Coding Level of Care Code Est Pt Prev Care 40-64y([id number]) Diagnoses Annual physical exam Z00.00 ILD (interstitial lung disease) J84.9 Impaired glucose tolerance R73.02 Chronic deep vein thrombosis (DVT) of lower extremity, unspecified laterality, unspecified vein I82.509 DVT location: lower extremity Affected thrombotic vein of extremity: unspecified vein of extremity Chronicity: chronic Laterality: unspecified laterality Sarcoidosis D86.9 Benign prostatic hyperplasia with urinary frequency N40.1; R35.0 Lower urinary tract symptom presence: symptoms present Lower urinary tract symptom detail: urinary frequency Hypercholesterolemia E78.00 Tubular adenoma of colon D12.6 Assessment & Plan Assessment & Plan (1) Annual physical exam: Code(s): Z00.00 - Encounter for general adult medical examination without abnormal findings Category: Medical Plan: Patient is advised to eat healthy, keep well hydrated, keep active and have adequate sleep. (2) ILD (interstitial lung disease): Code(s): J84.9 - Interstitial pulmonary disease, unspecified Category: Medical Plan: Patient continue to follow-up with Pulmonary on 0 FEV, on oxygen and tapering prednisone (3) Impaired glucose tolerance: Code(s): R73.02 - Impaired glucose tolerance (oral) Category: Medical Plan: Decrease the amount of carbohydrate intake, pasta, bread, rice and potatoes are all sugar and that is aside from all the sweet stuff, remember that fruits are good but they are Sweet also. (4) DVT (deep venous thrombosis): Comment: 2014 S def Code(s): I82.409 - Acute embolism and thrombosis of unspecified deep veins of unspecified lower extremity Category: Medical Qualifiers: DVT location: lower extremity Affected thrombotic vein of extremity: unspecified vein of extremity Chronicity: chronic Laterality: unspecified laterality Qualified Code(s): I82.509 - Chronic embolism and thrombosis of unspecified deep veins of unspecified lower extremity Plan: Continue to be on anticoagulation with Coumadin (5) Sarcoidosis: Comment: dx 2011-follows w/Dr. Da Silva ([facility] [place]) Code(s): D86.9 - Sarcoidosis, unspecified Category: Medical Plan: Patient is being treated by Pulmonary with Remicade (6) BPH (benign prostatic hyperplasia): Comment: Prostate 85 cc Code(s): N40.0 - Benign prostatic hyperplasia without lower urinary tract symptoms Category: Medical Qualifiers: Lower urinary tract symptom presence: symptoms present Lower urinary tract symptom detail: urinary frequency Qualified Code(s): N40.1 - Benign prostatic hyperplasia with lower urinary tract symptoms; R35.0 - Frequency of micturition Plan: Continue to follow-up with urology and has been started on Toviaz (7) Hypercholesterolemia: Code(s): E78.00 - Pure hypercholesterolemia, unspecified Category: Medical Plan: Avoid fried foods, chicken skin, eggs, butter margarine, pastries and meat. Be it pork or beef they have a lot of cholesterol June 2023 last blood work (8) Tubular adenoma of colon: Code(s): D12.6 - Benign neoplasm of colon, unspecified Category: Medical Plan - Labs: Mild thrombocytopenia, hyperkalemia (5.3 mmol/L), elevated blood gluc ose. - Procedure: Colonoscopy in April 2021 indicated benign tubular adenoma. - Pulmonary Fibrosis: Continue management with Remicade and recently started Ofev; candidate for pulmonary rehabilitation. - Benign Prostatic Hyperplasia: Continue doxazosin and Tovias; consider surgical intervention if nocturia remains unresolved. - Hypercholesterolemia and Impaired Glucose Tolerance: Continue monitoring; good control on current regimen. - Sarcoidosis: Maintain ophthalmological follow-up to monitor ocular involvement; no acute interventions required. - Elevated Potassium: Encourage dietary modifications to manage hyperkalemia; monitor levels regularly. - Post-COVID Anosmia and Ageusia: Monitor symptoms; no specific treatment necessary at this time. - Health Maintenance: Administer tetanus vaccination and proceed with advised screenings as per schedule. During the visit, I discussed with the patient the management strategies for his chronic conditions: pulmonary fibrosis management with Ofev and Remicade, and discussed his candidacy for pulmonary rehabilitation. Consulting [facility] [place] was recommended. BPH management was deliberated with emphasis on current pharmaceutical therapy efficacy and potential surgical intervention. For his post-COVID anosmia and ageusia, I advised continuance of the monitoring status without immediate aggressive intervention. I provided reassurance regarding his controlled hypercholesterolemia and addressed his dietary adjustments needed to manage the elevated potassium. We elaborated on future screening and vaccination updates required, explaining the need for a tetanus booster and the follow-up timing for laboratory tests. Furthermore, I confirmed with the patient his understanding of the implications of his previous colonoscopy findings, reiterating the necessity of future surveillance. I ensured he was informed of subsequent steps and scheduled follow-up visits as necessary. - Continue current medications as prescribed. - Schedule and complete pulmonary rehabilitation upon referral. - Continue dietary adjustments for cholesterol and potassium management. - Monitor sugar levels regularly and report any significant changes. - Schedule follow-up visits for vaccination updates and routine screening. - Report any new or worsening symptoms or difficulty in medication management. - - Remain cautious during flu season to minimize risk of respiratory infections. Orders: Orders Hemoglobin A1c 5 Months R73.02 - Impaired glucose tolerance (oral) Comprehensive Met. Panel 5 Months R73.02 - Impaired glucose tolerance (oral) Thyroid Stimulating Hormone 5 Months R73.02 - Impaired glucose tolerance (oral) Vitamin B12 and Folate 5 Months R73.02 - Impaired glucose tolerance (oral) Prostate Specific Antigen Scr 5 Months R73.02 - Impaired glucose tolerance (oral) Free T4 (Free Thyroxine) 5 Months R73.02 - Impaired glucose tolerance (oral) C Reactive Protein 5 Months R73.02 - Impaired glucose tolerance (oral) Complete Blood Count Auto Diff 5 Months R73.02 - Impaired glucose tolerance (oral) Lipid Panel 5 Months E78.00 - Pure hypercholesterolemia, unspecified, R73.02 - Impaired glucose tolerance (oral) Erythrocyte Sedimentation Rate 5 Months R73.02 - Impaired glucose tolerance (oral) Referrals Gastroenterology Referral D12.6 - Benign neoplasm of colon, unspecified
== END 2024-04-14 12:18 | disposition home or self-care (01) ==
LOC: HO.HMCH 11:16
PROVIDERS: PCP Internal Medicine; Visit Provider Internal Medicine
DX: Z00.00 Encounter for general adult medical examination without abnormal findings (principal); J84.9 Interstitial pulmonary disease, unspecified; R73.02 Impaired glucose tolerance (oral); I82.509 Chronic embolism and thrombosis of unspecified deep veins of unspecified lower extremity; D86.9 Sarcoidosis, unspecified; N40.1 Benign prostatic hyperplasia with lower urinary tract symptoms; R35.0 Frequency of micturition; E78.00 Pure hypercholesterolemia, unspecified; D12.6 Benign neoplasm of colon, unspecified

== ENCOUNTER → 2024-04-14 11:16 | Outpatient (BNVA) | payer OTHER, SELFPAY | PROVIDERS: PCP Internal Medicine; Visit Provider Internal Medicine | DX: Z00.00 Encounter for general adult medical examination without abnormal findings (principal); J84.9 Interstitial pulmonary disease, unspecified; R73.02 Impaired glucose tolerance (oral); D86.9 Sarcoidosis, unspecified; N40.1 Benign prostatic hyperplasia with lower urinary tract symptoms; R35.0 Frequency of micturition; E78.00 Pure hypercholesterolemia, unspecified; D12.6 Benign neoplasm of colon, unspecified; Z86.718 Personal history of other venous thrombosis and embolism | CPT/HCPCS: 96127; 99396 ==

== ENCOUNTER 2024-04-21 10:11 | Outpatient (AMB) | payer OTHER, SELFPAY ==
--- NOTE | 2024-04-21 10:39 | MHC.OFFVISCO ---
Intake Intake Visit Reasons: Anticoagulation Allergies No Known Allergies [No Known Allergies*] Allergy (Verified 04/21/24 10:29) Medication List - Last Reconciled 04/21/24 by Mami Springer RN clotrimazole 1% 1 appl topical BID 4 weeks doxazosin 4 mg PO BEDTIME 90 days fesoterodine ER (Toviaz) 8 mg PO DAILY 30 days finasteride 5 mg PO DAILY 90 days guaifenesin ER (Mucinex) 600 mg PO Q12H PRN infliximab (Remicade) 336 mg IV Q4W 12 months nintedanib (Ofev) 150 mg PO Q12H 30 days oxybutynin chloride ER 5 mg PO DAILY 30 days Oxygen Home Use As directed prednisolone acetate 1% (Pred Forte) 1 drp ophthalmic (eye) BEDTIME prednisone 7.5 mg (1.5 x 5 mg) PO BEDTIME 30 days warfarin (Jantoven) 4 mg See Protocol PO BEDTIME Nursing Note Pt to [facility] with use of portable oxygen INR: 2.7 in therapeutic range of 2-3 Medications and supplements reviewed No changes in health, diet, medications, or supplements, Denies any signs and symptoms of bleeding or bruising or clotting. Bleeding, bruising, clotting discussed Nutritional guidance given Dose: 4mg X 6 days and 2mg X 1 day () F/U INR: 3 weeks Patient verbalizes understanding of instructions given Anti-Coag Initial Assessment Social Hx Patient Tobacco Use Status: Never used Tobacco Tobacco use type: Cigarette alcohol intake: current Alcohol intake frequency: holidays/special occasions only Coding Level of Care Code Est Patient Level 1 Diagnoses Current use of anticoagulant therapy Z79.01 Results AMB INR Fingerstick AMB INR Fingerstick 2.7 Last Edit by Mami Springer RN on 04/21/24 10:33 interface delay Assessment & Plan Assessment & Plan (1) Current use of anticoagulant therapy: Code(s): Z79.01 - prison (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
[2024-04-21 10:42] LABS: Prothrombin Time Whole Bld POC 31.9 sec (11.1-13.5); ~PT, ~INR - Anti Coag Clinic 2.7 (0.9-1.1)
== END 2024-04-21 10:41 | disposition home or self-care (01) ==
LOC: HO.ACS 10:11
PROVIDERS: PCP Internal Medicine; Visit Provider Internal Medicine
DX: Z79.01 Long term (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 of anticoagulants (principal)

== ENCOUNTER → 2024-04-21 10:11 | Outpatient (BNVA) | payer OTHER, SELFPAY | PROVIDERS: PCP Internal Medicine; Visit Provider Internal Medicine | DX: I82.402 Acute embolism and thrombosis of unspecified deep veins of left lower extremity (principal); Z79.01 Long term (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 of anticoagulants; Z51.81 Encounter for therapeutic drug level monitoring | CPT/HCPCS: 85610; 99211 ==

== ENCOUNTER 2024-05-12 11:03 | Outpatient (AMB) | payer OTHER, SELFPAY ==
--- NOTE | 2024-05-12 11:35 | MHC.OFFVISCO ---
Intake Intake Visit Reasons: Anticoagulation Allergies No Known Allergies [No Known Allergies*] Allergy (Verified 05/12/24 11:14) Medication List - Last Reconciled 05/12/24 by Marcia Dave RN albuterol sulfate 90 mcg/actuation 2 inhalations inhalation Q6H PRN 30 days clotrimazole 1% 1 appl topical BID 4 weeks codeine-guaifenesin 10-100 mg/5 mL 10 mL PO Q6H PRN 10 days doxazosin 4 mg PO BEDTIME 90 days doxycycline monohydrate 100 mg PO BID 14 days fesoterodine ER (Toviaz) 8 mg PO DAILY 30 days finasteride 5 mg PO DAILY 90 days guaifenesin ER (Mucinex) 600 mg PO Q12H PRN infliximab (Remicade) 336 mg IV Q4W 12 months nintedanib (Ofev) 150 mg PO Q12H 30 days oxybutynin chloride ER 5 mg PO DAILY 30 days Oxygen Home Use As directed prednisolone acetate 1% (Pred Forte) 1 drp ophthalmic (eye) BEDTIME prednisone PO daily; Take 6 tabs daily x 3 days, then 5 tabs x 3 days, then 4 tabs x 3 days, then 3 tabs x 3 days, then 2 tabs daily x 3 days, then 1 tab x 3 days to complete. 18 days prednisone 7.5 mg (1.5 x 5 mg) PO BEDTIME 30 days warfarin (Jantoven) 4 mg See Protocol PO BEDTIME Nursing Note INR 3.4 out of therapeutic range Medications and supplements reviewed Patient status: Pt started antbx doxycycline and prednisone tappering dose 2 days ago and has decreased appetite, enc thorough infection control with hand washing and wearing masks to px GI and URI viruses due to his current health status. Medications or supplements: NO OTHER CHANGES Diet: decreased - taking supplement drinks daily Denies any signs and symptoms of bleeding or clotting or unusual bruising Bleeding, bruising, clotting discussed Nutritional guidance given: enc avocado and his supplement drinks Dose: 2mg today then decrease to 2mg x 2 days / 4mg x 5 days F/U INR Date: 1 week 05/19/24 ?? Patient verbalizing understanding of instructions given. Anti-Coag Initial Assessment Social Hx Patient Tobacco Use Status: Never used Tobacco Tobacco use type: Cigarette alcohol intake: current Alcohol intake frequency: holidays/special occasions only Questionnaires HAS-BLED Does the patient had uncontrolled Hypertension?: No Does the patient have renal disease?: No Does the patient have liver disease?: No Does the patient have a history of stroke?: No Has the patient had major bleeding or predisposition to bleeding?: Yes Does the patient have labile INRs?: Yes Is the patient over 65 years of age?: No Is the patient on medications that gives them a predisposition to bleeding?: Yes Does the patient use alcohol?: Yes HAS-BLED Score: 4 CHADSVASC Age: <65 Gender: Male Does the patient have a history of CHF?: No Does the patient have a history of Hypertension?: No Does the patient have a history of Stroke/TIA/Thromboembolism?: Yes Does the patient have a history of Vascular Disease (prior UT, PAD or aortic plaque)?: No Does the patient have a history of Diabetes?: No CHADS VACS Score: 2 Olya Prediction Score Rsk VTE Active Cancer: No Previous VTE, excluding superficial vein thrombosis: Yes Reduced mobility: No Already known Thrombophilic Condition: Yes (protein s deficiency) With-in last month Trauma and/or Surgery: No Elderly 70 year or older: No Heart and/or Respiratory Failure: No Acute Myocardial infarction and/or Ischemic Stroke: No Acute Infection and/or Rheumatologic Disorder: Yes Obesity (BMI 30 or greater): No Ongoing Hormonal Treatment: No Score: 7 Olya Score less than 4; Low Risk of VTE Olya Score 4 or greater; High Risk of VTE Coding Level of Care Code Est Patient Level 1 Diagnoses Current use of anticoagulant therapy Z79.01 Results AMB INR Fingerstick AMB INR Fingerstick 3.5 Last Edit by Marcia Dave RN on 05/12/24 11:23 manual entry Assessment & Plan Assessment & Plan (1) Current use of anticoagulant therapy: Code(s): Z79.01 - nursing home (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
[2024-05-12 11:50] LABS: Prothrombin Time Whole Bld POC 41.5 sec (11.1-13.5); ~PT, ~INR - Anti Coag Clinic 3.5 (0.9-1.1)
== END 2024-05-12 11:40 | disposition home or self-care (01) ==
LOC: HO.ACS 11:03
PROVIDERS: PCP Internal Medicine; Visit Provider Internal Medicine
DX: Z79.01 Long term (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 of anticoagulants (principal)

== ENCOUNTER → 2024-05-12 11:03 | Outpatient (BNVA) | payer OTHER, SELFPAY | PROVIDERS: PCP Internal Medicine; Visit Provider Internal Medicine | DX: I82.402 Acute embolism and thrombosis of unspecified deep veins of left lower extremity (principal); Z79.01 Long term (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 of anticoagulants; Z51.81 Encounter for therapeutic drug level monitoring | CPT/HCPCS: 85610; 99211 ==

== ENCOUNTER 2024-05-22 08:35 | Outpatient (AMB) | payer OTHER, SELFPAY ==
[2024-05-22 09:05] LABS: Prothrombin Time Whole Bld POC 52.3 sec (11.1-13.5); ~PT, ~INR - Anti Coag Clinic 4.4 (0.9-1.1)
--- NOTE | 2024-05-22 09:16 | MHC.OFFVISCO ---
Intake Intake Visit Reasons: Anticoagulation Allergies No Known Allergies [No Known Allergies*] Allergy (Verified 05/22/24 08:51) Medication List - Last Reconciled 05/22/24 by Mami Springer RN albuterol sulfate 90 mcg/actuation 2 inhalations inhalation Q6H PRN 30 days cetirizine 10 mg PO DAILY PRN clotrimazole 1% 1 appl topical BID 4 weeks codeine-guaifenesin 10-100 mg/5 mL 10 mL PO Q6H PRN 10 days doxazosin 4 mg PO BEDTIME 90 days doxycycline monohydrate 100 mg PO BID 14 days fesoterodine ER (Toviaz) 8 mg PO DAILY 30 days finasteride 5 mg PO DAILY 90 days guaifenesin ER (Mucinex) 600 mg PO Q12H PRN infliximab (Remicade) 336 mg IV Q4W 12 months nintedanib (Ofev) 150 mg PO Q12H 30 days omeprazole 40 mg PO DAILY oxybutynin chloride ER 5 mg PO DAILY 30 days Oxygen Home Use As directed prednisolone acetate 1% (Pred Forte) 1 drp ophthalmic (eye) BEDTIME prednisone PO daily; Take 6 tabs daily x 3 days, then 5 tabs x 3 days, then 4 tabs x 3 days, then 3 tabs x 3 days, then 2 tabs daily x 3 days, then 1 tab x 3 days to complete. 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 Also started on Omeprazole. Medications and supplements reviewed and new meds as above. All other meds no changes. Diet: usual diet for pt. Denies any signs and symptoms of bleeding or clotting or unusual bruising Bleeding, bruising, clotting discussed. Nutritional guidance given: Pt will increase greens intake while on this higher dose of prednisone. Dose: hold today's dose of 4mg then decrease weekly dose to 4mg X 4 days (instead of 5 days) and 2mg X 3 days. F/U INR Date : 4 days?? Patient verbalizing understanding of instructions given. Anti-Coag Initial Assessment Social Hx Patient Tobacco Use Status: Never used Tobacco Tobacco use type: Cigarette alcohol intake: current Alcohol intake frequency: holidays/special occasions only Coding Level of Care Code Est Patient Level 1 Diagnoses Current use of anticoagulant therapy Z79.01 Results AMB INR Fingerstick AMB INR Fingerstick 4.4 Last Edit by Mami Springer RN on 05/22/24 09:07 interface delay Assessment & Plan Assessment & Plan (1) Current use of anticoagulant therapy: Code(s): Z79.01 - [facility] (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
== END 2024-05-22 09:24 | disposition home or self-care (01) ==
LOC: HO.ACS 08:35
PROVIDERS: PCP Internal Medicine; Visit Provider Internal Medicine
DX: Z79.01 Long term (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 of anticoagulants (principal)

== ENCOUNTER → 2024-05-22 08:35 | Outpatient (BNVA) | payer OTHER, SELFPAY | PROVIDERS: PCP Internal Medicine; Visit Provider Internal Medicine | DX: I82.402 Acute embolism and thrombosis of unspecified deep veins of left lower extremity (principal); Z79.01 Long term (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 of anticoagulants; Z51.81 Encounter for therapeutic drug level monitoring | CPT/HCPCS: 85610; 99211 ==

== ENCOUNTER 2024-05-26 07:56 | Outpatient (AMB) | payer OTHER, SELFPAY ==
[2024-05-26 08:07] LABS: ~PT, ~INR - Anti Coag Clinic 2.7 (0.9-1.1)
--- NOTE | 2024-05-26 08:13 | MHC.OFFVISCO ---
Intake Intake Visit Reasons: Anticoagulation Allergies No Known Allergies [No Known Allergies*] Allergy (Verified 05/26/24 07:59) Medication List - Last Reconciled 05/26/24 by Marcia Dave RN albuterol sulfate 90 mcg/actuation 2 inhalations inhalation Q6H PRN 30 days cetirizine 10 mg PO DAILY PRN clotrimazole 1% 1 appl topical BID 4 weeks doxazosin 4 mg PO BEDTIME 90 days fesoterodine ER (Toviaz) 8 mg PO DAILY 30 days finasteride 5 mg PO DAILY 90 days guaifenesin ER (Mucinex) 600 mg PO Q12H PRN infliximab (Remicade) 336 mg IV Q4W 12 months nintedanib (Ofev) 150 mg PO Q12H 30 days omeprazole 40 mg PO DAILY oxybutynin chloride ER 5 mg PO DAILY 30 days Oxygen Home Use As directed prednisolone acetate 1% (Pred Forte) 1 drp ophthalmic (eye) BEDTIME prednisone PO daily; Take 6 tabs daily x 3 days, then 5 tabs x 3 days, then 4 tabs x 3 days, then 3 tabs x 3 days, then 2 tabs daily x 3 days, then 1 tab x 3 days to complete. 18 days prednisone 7.5 mg (1.5 x 5 mg) PO BEDTIME 30 days prednisone 10 mg PO QID warfarin (Jantoven) 4 mg See Protocol PO BEDTIME Nursing Note INR: 2.7 in therapeutic range- feeling better Medications and supplements reviewed remains on prednisone 40mg daily and omeprazole 40 mg daily - completed doxycyline - had 1 dose of sulfa x 1 day last week which may have raised the INR Denies any signs and symptoms of bleeding or bruising or clotting. Bleeding, bruising, clotting discussed Nutritional guidance given - eat mix of fruits and vegetables Dose: 2mg x 3 days/ 4mg x 4 days F/U INR: 1 week Patient verbalizes understanding of instructions given with read back Anti-Coag Initial Assessment Social Hx Patient Tobacco Use Status: Never used Tobacco Tobacco use type: Cigarette alcohol intake: current Alcohol intake frequency: holidays/special occasions only Coding Level of Care Code Est Patient Level 1 Diagnoses Current use of anticoagulant therapy Z79.01 Assessment & Plan Assessment & Plan (1) Current use of anticoagulant therapy: Code(s): 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
== END 2024-05-26 08:17 | disposition home or self-care (01) ==
LOC: HO.ACS 07:56
PROVIDERS: PCP Internal Medicine; Visit Provider Internal Medicine
DX: Z79.01 Long term (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 of anticoagulants (principal)

== ENCOUNTER → 2024-05-26 07:56 | Outpatient (BNVA) | payer OTHER, SELFPAY | PROVIDERS: PCP Internal Medicine; Visit Provider Internal Medicine | DX: I82.402 Acute embolism and thrombosis of unspecified deep veins of left lower extremity (principal); Z79.01 Long term (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 of anticoagulants; Z51.81 Encounter for therapeutic drug level monitoring | CPT/HCPCS: 85610; 99211 ==

== ENCOUNTER 2024-05-29 14:58 | Outpatient (REF) | payer OTHER, SELFPAY ==
[2024-05-29 15:57] LABS: MANUAL DIFF FLAG NO
[2024-05-29 16:23] LABS: Basophils Percent Auto 0.1 % (0-2); Eosinophils Percent Auto 0.2 % (0-4); Hematocrit 47.2 % (42.0-52.0); Hemoglobin 15.1 g/dl (14.0-18.0); Imm Gran Abs Auto 0.05 X10*3/uL (0.00-0.03); Imm Gran Pct Auto 0.5 % (0.0-0.4); Lymphocytes Absolute Auto 0.8 X10*3/uL (1.2-4.9); Lymphocytes Percent Auto 7.9 % (20-40); Mean Corpuscular Hemoglobin 28.9 pg (27.0-33.0); Mean Corpuscular Volume 90.4 fL (80.0-98.0); Mean Platelet Volume 10.8 fL (9.4-12.4); Monocytes Absolute Auto 0.3 X10*3/uL (0.1-1.2); Monocytes Percent Auto 2.7 % (2-11); Neutrophils Absolute Auto 8.4 x10*3/uL (2.0-8.3); Neutrophils Percent Auto 88.6 % (45-73); Platelet Count 123 X10*3/uL (160-400); Red Blood Count 5.22 X10*6/uL (4.60-5.80); Red Cell Distribution Width 13.8 % (11.0-16.0); White Blood Count 9.5 X10*3/uL (4.8-10.8)
[2024-05-29 17:05] LABS: Erythrocyte Sedimentation Rate 5 MM/HR (0-15)
[2024-05-29 17:30] LABS: Alanine Aminotransferase 30 U/L (0-40); Albumin Level 3.7 g/dL (3.5-5.0); Anion Gap 14 (12-20); Aspartate Amino Transferase 25 U/L (5-37); Bilirubin Direct 0.4 mg/dL (0.0-0.5); Bilirubin Total 1.5 mg/dL (0.0-1.0); Blood Urea Nitrogen 11 mg/dL (9-16); Calcium 8.9 mg/dL (8.4-10.2); Carbon Dioxide 29 mmol/L (22-29); Chloride 104 mmol/L (96-108); Estimated Glomerular Filt Rate > 60; Glucose Random 116 mg/dL (60-115); Potassium 4.6 mmol/L (3.3-5.1); Sodium 142 mmol/L (135-145); Total Protein 7.5 g/dL (6.5-8.0)
[2024-05-29 17:50] LABS: Alkaline Phosphatase 70 U/L (39-117); Vitamin D 25-OH Total 11.1 ng/mL (>30)
[2024-06-02 08:33] LABS: Angiotensin Converting Enzyme 24 U/L (9-67)
[2024-06-02 16:09] LABS: Vitamin D 25-OH, D2 <4 ng/mL; Vitamin D 25-OH, D3 13 ng/mL; Vitamin D 25-OH, Total 13 ng/mL (30-100)
== END 2024-05-29 14:59 | disposition home or self-care (01) ==
LOC: HO.LAB 14:58
PROVIDERS: PCP Internal Medicine; Visit Provider Hospitalist
DX: J84.9 Interstitial pulmonary disease, unspecified (principal); J84.10 Pulmonary fibrosis, unspecified; D86.9 Sarcoidosis, unspecified; U07.1 COVID-19; J12.82 Pneumonia due to coronavirus disease 2019
CPT/HCPCS: 36415; 80048; 80076; 82164; 82306; 85025; 85652; 99212

== ENCOUNTER 2024-05-29 14:58 | Outpatient (AMB) | payer OTHER, SELFPAY ==
--- NOTE | 2024-05-29 15:08 | MHC.OFFVIS ---
Vital Signs 05/29/24 15:09 Height 5 ft 4 in Weight 143 lb BMI 24.5 BP 122/70 Blood Pressure Location Rt brachial Position Sitting Pulse 88 Pulse Source Pulse Oximeter Pulse Oximetry (%) 90 L Oxygen Delivery Method Nasal Cannula Oxygen Flow Rate 3 Intake Visit Reasons: Pulm Fibrosis Allergies No Known Allergies [No Known Allergies*] Allergy (Verified 05/29/24 15:11) HPI Comments Details: The patient is a 58-year-old gentleman with a known history of sarcoidosis. 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 At that point he also had a rash on the face. The patient was noted to have lupus pernio. He did have a biopsy-proven sarcoidosis. The patient did have a CT scan of the chest demonstrating pulmonary nodules and also lymphadenopathy. Although the diagnosis of sarcoid was made based on the skin biopsy. I do not have those results is all per the patient. The patient then was followed by a local eyelet maker. He was placed on prednisone. Ultimately more recently than that the patient start having worsening shortness of breath and cough. Was then placed on methotrexate up to 8 tablets of the 2.5 mg weekly. However after he started the methotrexate he has been noticing worsening cough and shortness of breath. He did have a recent chest x-ray done at the [facility] which I personally reviewed. It appears that he has a chronically elevated right hemidiaphragm but now appears to have more hazy opacities bilaterally suggesting pneumonitis. I did compare that to his previous x-ray from October which she did not have the degree of pneumonitis as he has now. Therefore I am concerned that he is having some adverse effects of the methotrexate. Assess as far as I know the only involvement of the sarcoid has been his lungs his skin and also the uveitis. 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 It is likely that the thrombotic issues are also related to sarcoidosis. He denies any other involvement of any other end-organ. We did review his blood work his total bili is a little elevated and he has had issues with liver in the past. But is hard to know for sure if is related to sarcoid any other etiology. The patient complains that his cough is very significant. He had call the on-call physician was given Tessalon Perles without any significant improvement. For now while we deal with his active sarcoid issue go ahead and give her some codeine cough syrup patient does use state Travis often at nighttime to make sure that he can stop coughing. 08/03/2022 the patient is here for a pulmonary follow-up visit. He still the same. He still complains of cough and some chest congestion. The mucus is yellowish and whitish in color. [id number] severity. Did have worse at nighttime. The patient did switch over to mycophenolate from methotrexate. Seems to be tolerating it although still low dose of 100 mg twice a day. Was able to cut down the prednisone from 20 mg to 10 mg which is reassuring. Will continue to optimize his sarcoid therapy by increasing the mycophenolate to 1000 mg twice a day and also decreasing the prednisone some 0.5 mg. He also will going to go very slowly to make sure that he is able to decrease her dose effectively. We did review his CT scan of the chest demonstrating significant interstitial lung disease and pulmonary nodules when compared to his CT scan from 2014. He also had pulmonary function studies demonstrating a moderate restrictive ventilatory defect. In part he does have an elevated right hemidiaphragm that is resulting in diminished lung capacity. At this point will continue to maintain him on therapy to make sure that he does not have any progression of the scarring if is due to the sarcoidosis. 11/06/2022 the patient is here for a pulmonary follow-up visit. He continues with his ongoing chest congestion and cough. Moderate severity. Worse at nighttime. Has not responded to the respiratory therapy or the immunosuppressive therapy. He does bring up chest congestion although have been able to get a culture. We did review his CT scan of the chest. The patient does have normal findings. Based on his ongoing cough and his lack of response to his current therapy will plan to perform bronchoscopy. He does have pertinent S deficiency with hypercoagulable state and currently on Coumadin. I will be working with the Coumadin clinic in order to get him ready for the procedure. 01/29/2023 the patient is here for apulmonary follow up visit. Complaining that the cough is no better. Moderate in severity. Patient did have significant evidence of bronchomalacia. This is likely contributing to his significant cough. He also had moderate mucoid secretions that were suction. Patient is cultures were all negative. His endobronchial biopsies were negative for any sarcoidosis. Unfortunate patient continues to cough. Explained to him that the issue is the collapsing of the airways. At this point will start him on CPT with the Acapella valve to help him clear secretions. The patient will continue with current respiratory therapy. He will start cough suppressant. 05/06/2023 the patient has a telehealth visit today. He has not recovering from a viral syndrome on home. He is feeling better. He continues on the prednisone 7.5 mg daily and also continues on the mycophenolate. Seems to be tolerating therapy well and his blood sugars have been okay. In regards of his respiratory symptoms he has been coughing a little more secondary to the viral syndrome her [id number] severity. Otherwise feels well he does need any additional therapies at this time. Will plan to repeat his CT scan in 3 months' time year from his last 1 to see the progression of his underlying nodular densities and interstitial lung disease. 08/13/2023 the patient is here for pulmonary follow-up visit. The patient continues have a cough. The cough is moderate severe. He is tried multiple medications without any significant improvement. In regards of the sarcoidosis the patient has been on the chronic prednisone and also has been on mycophenolate 2 g a day. He is noticed also worsening dyspnea on exertion. Hckc-ys-pucqejhb severity. He did have a CT scan of the chest which we personally reviewed. It appears it has interval worsening of the pulmonary fibrosis which is concerning. He is already on high dose of mycophenolate and on chronic prednisone. Will go ahead and give him a prednisone taper to see if we can improve the symptoms. In the meantime we talked about other alternative therapies such as Remicade. The patient is open to trying these medications. Will go ahead and request blood work to make sure that he can start the therapy as soon as possible. I also did offer him a 2nd opinion at the sarcoid Clinic at [facility]. However, the patient is concerned about the drive. Will continue to discuss that. Specially in view of the worsening fibrosis. We did go for 6 minute walk test the patient did desaturate down to 87% with activity on room air. Did qualify for a conserving device at 2 L pulse. Will go ahead and request a concentrator and portable oxygen concentrator through [employer]. 10/26/2023 the patient is here for pulmonary follow-up visit. Overall the patient has been doing well. He is still coughing though. Moderate severity. Denies any shortness of breath. He was switched over to Remicade because he continued to have progression of the interstitial lung disease even on high doses of the mycophenolate. He seems to be tolerating medication well infusions are going well without any adverse effects. Will plan to repeat an x-ray in the next few months to see if there is any progression. Although his respiratory exam is indeed better this time. His cough is mainly in upper airway cough syndrome. Will try to treat him with Sudafed and also 1st generation antihistamines to see if we can settle down the cough. He is tried multiple other rurz-qip-wkeqenc medications in prescription medication without any significant improvement. Follow-up in 3 months. 12/08/2023 the patient is here for hospital follow-up visit. The patient was developing worsening respiratory symptoms and he was admitted to [facility]. He had a CT scan of the chest there which I do not have available but the patient described it as rito out. Likely significant diffuse pneumonitis. The patient initially tested negative for COVID on the nasal swab but he did have a bronchoscopy that were positive for COVID. Therefore he was treated for COVID pneumonitis and pneumonia. He was placed on oxygen. He is prednisone was increased from 7.5 2 higher amount. He was subsequently discharged on a prednisone taper. The patient is still having hard time breathing he is using oxygen. We did give him a portable oxygen concentrator to use after, but, the patient has had a hard time with it. Since that is working. We did call the DME so they can look at it. In the meantime we placed him on oxygen which did help. The patient is still working. He has hard time not working and therefore he needs to have the oxygen order to continue his working activities. He did have a chest x-ray today which I personally reviewed demonstrating still persistent elevation of the right hemidiaphragm although that is chronic interstitial changes which appeared to be chronic. And some degree of ill-defined opacities in the upper lung zones which is new but since be getting better. His baseline x-ray was not normal on the 1st place. He has been on Remicade. His next dose is sometime in January. Will follow-up in a couple weeks. The meantime he is going to increase the prednisone to 20 mg from his baseline 7.5 to try to decrease the inflammatory changes. 12/30/2023 the patient is here for a pulmonary follow-up visit. He is not feeling any better. He did go up to 20 mg of prednisone. He continues on the Remicade. The patient did have a chest x-ray demonstrating interval worsening of the interstitial lung disease primarily the left hemithorax where he was primarily preserved. He does have an elevated right hemidiaphragm. He has been having issues with a portable oxygen concentrator. He did have to go up to 4 L pulse which is fine with activity. He can keep it at 2 L at rest. We talked about deep breathing exercises to make sure that he maximize his the respiratory effort and gas exchange. In view of the worsening pulmonary fibrosis will be a good candidate for Ofev. I will send a prescription to the pharmacy once we get approval. In the meantime pulmonary rehabilitation will be keep. The patient has been on 20 mg of prednisone without any significant changes in his respiratory capacity. Therefore, will start tapering down to his baseline dose 7.5 mg. Will follow-up in 4-6 weeks. 01/31/2024 the patient is here for a pulmonary follow-up visit. The patient still struggling with his breathing. The portable oxygen concentrator is not holding him. We did do a walking oximetry and he actually needs 4 L continuous with activity to maintain a pulse ox of 89% and above. Therefore he understands that we need to switch his POC to regular oxygen tanks. Will request a trial so that we can carry the oxygen little bit better. He is having hard time working because of his oxygen needs in his increased dyspnea. Therefore, will go ahead and repeat his chest x-ray and PFTs see the degree of severity. But my suspicion is that the patient is unlikely going to be able to work with this degree of disease. He recently did start the Ofev to try to minimize the progression of the fibrosis. I hope that he can tolerate the adverse effects which included diarrhea. He will continue on the prednisone although he is cutting down slowly down to 7.5 mg. he also continues on the Remicade as previously prescribed for the sarcoidosis before the severe COVID infection. At this point the patient appears to have progressive disease and unfortunately he is not developing any significant improvement as of yet. When he returns in a couple months after his PFTs and chest x-ray we can better assess his degree of disease and potential prognosis. In the meantime will request the [employer] company to change his oxygen in order for him to have adequate oxygenation and improve gas exchange. 03/27/2024 the patient is here for a pulmonary follow-up visit. Since we last spoke the patient was able to decrease the prednisone to 7.5 mg daily. in addition to that he continues on Remicade. Recently he was started on Ofev. Seems to be tolerating it just some episodes of diarrhea but the patient is adjusting well. He did undergo a recent chest x-ray which still shows significant interstitial lung disease and decreased lung volumes. Pretty similar to previous. And his PFTs again demonstrating significant restriction with also severe diffusion impairment. The patient be a great candidate for pulmonary rehabilitation at this time. saw him in the program he may need to have malaise since he is still working full-time. At this point is conditions pretty advanced. She understands that. Will go ahead and refer him [place] to see if any other medication adjustment could be provided for him to see if any improvements can be facilitated. But also because if not if he has any evidence of any progression he would also be a good candidate for lung transplantation evaluation. Therefore will refer him to [facility] in order to start the process. He still is in the oxygen although the oxygen tanks are very heavy for him to carry. I had him doing repeat conserving device trial. On 4 L pulse he was able to maintain a pulse ox of 90% He rather use the POC because of better portability outside of the home. will go ahead and try again. I will send a script to the [employer] to switch him again to the POC at least he knows what he can expect since he had been on 1 before. will continue to monitor his progress and will await the referral evaluation in [place]. 05/29/2024 The patient is here for a pulmonary follow up visit. He did have his evaluation in [place] and he was very happy with that visit. She will be starting pulmonary rehab soon. Now he is on 40mg of Prednisone and still on remicade. He continues to use oxygen, Will need to stay on continuous oxygen. We requested an oxygen cart for him. He will f/u with [place] with PFts and CT chest. In the meantime, he continues with dyspnea, moderate in severity. Also has a cough. We will continue the current therapy. Will need PCP prophylaxis if continues on high doses of prednisone. [facility] Medical History (Updated 05/26/24 @ 12:29 by Jaz Myers MD) Pneumonia due to COVID-19 virus Pulmonary fibrosis ILD (interstitial lung disease) Bronchomalacia Right inguinal hernia Sarcoidosis Pulmonary nodules Obesity (BMI 30.0-34.9) Bleeding hemorrhoids Leg pain, right LFT elevation Hyperkalemia Glaucoma BPH (benign prostatic hyperplasia) Vitamin D deficiency Hypercholesterolemia Protein S deficiency DVT (deep venous thrombosis) Thrombocytopenia Surgical History History of right inguinal hernia repair Hx of lymph node biopsy Hx of colonoscopy History of umbilical hernia repair History of appendectomy History of sinus surgery Family History Mother No problems noted. Father Medical history unknown Daughter In good health Sister In good health Brother Lung cancer Social History Household Members: Significant Other Housing: House Are you a primary hearing care practitioner to a significant other at home: No Do you presently have visiting nurse or other home services: No Alcohol intake: current Alcohol intake frequency: holidays/special occasions only Comment: 3x a year 2 drinks Patient Tobacco Use Status: Never used Tobacco Tobacco use type: Cigarette e-Cigarette/Vaping Use: Never Used Second Hand Smoke Exposure: No service: No Current occupational status: employed Cognitive needs: No Hearing needs: No Vision needs: Yes Review of Systems Const Denies body aches and Denies fever(s) Eyes Denies change in vision ENT Denies change in voice Card Denies chest pain, Reports dyspnea and Reports dyspnea on exertion Resp Denies chest congestion, Reports cough, Denies hemoptysis, Reports dyspnea, Reports dyspnea on exertion and Denies wheezing GI Denies no additional complaints Musc Reports no additional complaints Skin/Breast Denies new lesions and Reports rash Neuro Reports no additional complaints Endo Denies flushing Sina/Lymph Denies easy bruising and Denies lymphadenopathy Aller/Immun Denies wheezing Physical Exam Vital Signs: Last Vital Signs Pulse 88 05/29/24 15:09 BP 122/70 05/29/24 15:09 Pulse Ox 90 L 05/29/24 15:09 Oxygen Delivery Method Nasal Cannula 05/29/24 15:09 Oxygen Flow Rate 3 05/29/24 15:09 BMI result Body Mass Index 24.5 Const General: comfortable HEENT Head: Yes normocephalic Eyes General: appearance normal, both eyes and all related structures Neck Neck: Yes supple Chest Chest palpation & inspection: normal inspection of the chest Resp Effort & Inspection: normal respiratory effort Auscultation: crackles and diminished lung sounds Cardio Rate: regular rate Rhythm: regular rhythm Heart sounds: S1 normal heart sound present and S2 normal heart sound present GI Auscultation: normal bowel sounds Skin General skin exam: no rashes or lesions noted Extrem General: Yes no clubbing, cyanosis or edema Assessment & Plan Assessment & Plan (1) Pulmonary fibrosis: Comment: 2011 Code(s): J84.10 - Pulmonary fibrosis, unspecified Category: Medical (2) Pulmonary nodules: Code(s): R91.8 - Other nonspecific abnormal finding of lung field Category: Medical (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 Da Silva ([facility] [place]) Code(s): D86.9 - Sarcoidosis, unspecified Category: Medical Plan REVISION: oxygen 2l/pulse at rest and 4L/pulse with activity, requesting oxygen cart Prednisone 40mg daily continue Remicade continue OFEV due to he progression of the pulmonary fibrosis CPT with acapella valve start Pulmonary rehab [facility] Pulmonary for evaluation. May need a transpalant referral Bloodwork F/U 3 months Orders: Orders Liver Panel Today J84.9 - Interstitial pulmonary disease, unspecified Vitamin D 25-OH Total Today J84.9 - Interstitial pulmonary disease, unspecified Erythrocyte Sedimentation Rate Today J84.9 - Interstitial pulmonary disease, unspecified Angiotensin Converting Enzyme Today J84.9 - Interstitial pulmonary disease, unspecified Complete Blood Count Auto Diff Today J84.9 - Interstitial pulmonary disease, unspecified Basic Metabolic Panel Today J84.9 - Interstitial pulmonary disease, unspecified LDH Pleural Fluid Today J84.9 - Interstitial pulmonary disease, unspecified Vitamin D 25-OH (D2 and D3) Today J84.9 - Interstitial pulmonary disease, unspecified Medications: New prednisone 40 mg (4 x 10 mg) PO DAILY 120 tabs 4RF 30 days Discontinued prednisone Discontinued Reason: Doctor's Order PO daily; Take 6 tabs daily x 3 days, then 5 tabs x 3 days, then 4 tabs x 3 days, then 3 tabs x 3 days, then 2 tabs daily x 3 days, then 1 tab x 3 days to complete. 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
[2024-05-29 15:09] VITALS: BP 122/70; PULSE 88; O2SAT 90; BMI 24.5
== END 2024-05-29 15:42 | disposition home or self-care (01) ==
PROVIDERS: PCP Internal Medicine; Visit Provider Hospitalist
DX: J84.10 Pulmonary fibrosis, unspecified (principal); R91.8 Other nonspecific abnormal finding of lung field; Z79.52 Long term (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 of systemic steroids; J98.09 Other diseases of bronchus, not elsewhere classified; U07.1 COVID-19; J12.82 Pneumonia due to coronavirus disease 2019; J84.9 Interstitial pulmonary disease, unspecified; D86.9 Sarcoidosis, unspecified
CPT/HCPCS: 99214; G2211

== ENCOUNTER 2024-06-05 14:36 | Outpatient (AMB) | payer OTHER, SELFPAY ==
[2024-06-05 15:01] VITALS: BP 136/82; PULSE 85; O2SAT 95; BMI 24.8
--- NOTE | 2024-06-05 15:01 | A.OFFPC_ITS ---
Vital Signs 06/05/24 15:01 Height 5 ft 4 in Weight 144 lb 8 oz BMI 24.8 BP 136/82 Blood Pressure Location Lt brachial Position Sitting Pulse 85 Pulse Source Pulse Oximeter Pulse Oximetry (%) 95 Oxygen Delivery Method Nasal Cannula Intake Visit Reasons: 3mth f/u Intake Note: Patient here for a 3 month follow up Networking Technician Required: No Accompanied by: Self / Same As Patient Allergies No Known Allergies [No Known Allergies*] Allergy (Verified 06/05/24 15:02) Tobacco use date assessed: 06/05/24 Dental Screening Dental Screen Date: 06/05/24 Did you have a dental visit in the last 12 months?: No Did you have a dental problem in the last 6 months where you did not have access to dental care?: No Was dental information given to patient?: Patient has dentist HPI 3mth f/u HPI Details The patient is a 58-year-old male presenting with sarcoidosis, currently under chronic treatment with prednisone. The patient has received a single prophylactic dose of Bactrim due to prolonged steroid use, but the course was not extended as initially considered. Pulmonary recommendations indicated that Bactrim would be prescribed if high-dose steroids are sustained to prevent opportunistic infections common in immunosuppressed states, such as Pneumocystis jirovecii pneumonia. The patient's recent bloodwork showed stable blood and platelet counts, with electrolytes within normal limits, but an increased glucose level at 116 mg/dL. The elevation in glucose may be attributable to prednisone therapy. Further, the patient has a documented deficiency in vitamin D, necessitating supplementation. The patient reports having initiated vitamin D supplementation a few days ago. Additionally, the patient has a history of tubular adenoma removal and is scheduled for follow-up colonoscopy in August with Dr. Rock, given the associated risk of malignant transformation and family history of colorectal cancer on the maternal side. The patient also reports frequent nasal bleeding attributed to dry air. He was advised on using saline nasal spray to alleviate this symptom. [facility] Medical History (Updated 05/26/24 @ 12:29 by Jaz Myers MD) Pneumonia due to COVID-19 virus Pulmonary fibrosis ILD (interstitial lung disease) Bronchomalacia Right inguinal hernia Sarcoidosis Pulmonary nodules Obesity (BMI 30.0-34.9) Bleeding hemorrhoids Leg pain, right LFT elevation Hyperkalemia Glaucoma BPH (benign prostatic hyperplasia) Vitamin D deficiency Hypercholesterolemia Protein S deficiency DVT (deep venous thrombosis) Thrombocytopenia Surgical History History of right inguinal hernia repair Hx of lymph node biopsy Hx of colonoscopy History of umbilical hernia repair History of appendectomy History of sinus surgery Family History Mother No problems noted. Father Medical history unknown Daughter In good health Sister In good health Brother Lung cancer Social History Household Members: Significant Other Housing: House Are you a primary healthcare architect to a significant other at home: No Do you presently have visiting nurse or other home services: No Alcohol intake: current Alcohol intake frequency: holidays/special occasions only Comment: 3x a year 2 drinks Patient Tobacco Use Status: Never used Tobacco e-Cigarette/Vaping Use: Never Used Second Hand Smoke Exposure: No service: No Current occupational status: employed Cognitive needs: No Hearing needs: No Vision needs: Yes Questionnaire Thrive Questionnaire Date Thrive assessed: 10/15/23 SANDRA-7 AMB Questionnaire SANDRA-7 Date SANDRA - 7 assessed: 07/09/23 Source: Developed by Drs. Mason Burton, Irma Morales, Waldemar Mchugh and colleagues, with an educational dc from [employer]. Physical exam (Primary Care) Vital Signs: Last Vital Signs Pulse 85 06/05/24 15:01 BP 136/82 06/05/24 15:01 Pulse Ox 95 06/05/24 15:01 Oxygen Delivery Method Nasal Cannula 06/05/24 15:01 BMI result Body Mass Index 24.8 Tobacco/Smoking Status: Tobacco use Status Tobacco use date assessed 06/05/24 06/05/24 15:08 Patient Tobacco Use Status Never used Tobacco 06/05/24 15:08 Tobacco use type 06/05/24 15:08 e-Cigarette/Vaping Use Never Used 06/05/24 15:08 Thrive Assessment: Date of Thrive Assessment Date Thrive assessed 10/15/23 06/05/24 15:08 Const General: alert; No acute distress Eyes Conjunctivae: conjunctivae normal Resp Auscultation: clear to auscultation bilaterally Cardio Rate: regular rate Rhythm: regular rhythm GI Inspection: Yes normal to inspection Extrem General: Yes normal to inspection and No edema Coding Level of Care Code Est Pt Level 4 (92382) Complex EM visit Add On G2211 Diagnoses ILD (interstitial lung disease) J84.9 Tubular adenoma of colon D12.6 Protein S deficiency D68.59 Sarcoidosis D86.9 Impaired glucose tolerance R73.02 Assessment & Plan Assessment & Plan (1) ILD (interstitial lung disease): Code(s): J84.9 - Interstitial pulmonary disease, unspecified Category: Medical (2) Tubular adenoma of colon: Code(s): D12.6 - Benign neoplasm of colon, unspecified Category: Medical Plan: scheduled with Dr. Rock (3) Protein S deficiency: Code(s): D68.59 - Other primary thrombophilia Category: Medical Plan: on coumadin. (4) Sarcoidosis: Comment: dx 2011-follows w/Dr. Da Silva ([facility]) Code(s): D86.9 - Sarcoidosis, unspecified Category: Medical (5) Impaired glucose tolerance: Code(s): R73.02 - Impaired glucose tolerance (oral) Category: Medical Plan - Continue monitoring blood glucose levels and manage prednisone-induced hyperglycemia. Discuss potential inclusion of antihypertensive agents if necessary. - Encourage adherence to the vitamin D supplementation regimen to address the deficiency. - Educate the patient on the importance of consistent pulmonary rehabilitation sessions to maintain respiratory function. - Reinforce the need for the upcoming colonoscopy due to the history of tubular adenoma and familial colorectal cancer risk. - Recommend regular use of saline nasal spray to reduce nasal dryness and minimize episodes of epistaxis. - Advise on infection prevention strategies, especially during this period of increased respiratory illness incidence, and consider prophylactic Bactrim should high-dose steroid therapy continue. - Discussed with the patient the critical nature of remaining vigilant for signs of infection due to immunosuppression and the importance of avoiding exposure to COVID-19, RSV, and influenza. - Arrange follow-up appointments for ongoing management and further evaluation of thyroid function, considering familial predisposition to thyroid disorders.
--- OUTSIDE RECORDS SUMMARY | 2024-06-05 19:03 | XMS_ITS | Patient Health Record ---
Author Organization [facility] Address [address] [place] [address] Care Team Providers Care Fingerprint Technician Name Role Phone Jaz Myers MD Primary Care Provider Mason Castro [phone] ALLERGIES No Known Allergies REASON FOR REFERRAL No Information MEDICATIONS Medication SIG (Take, Route, Frequency, Duration) Notes Start Date End Date Status MiraLax (colon prep) 17 GM/SCOOP 238 Gram bottle mixed with Gatorade or Crystal Light Orally begin at 5:00 p.m. the day before the procedure for 1 day 03/21/2021 Active Warfarin Sodium 4 MG 1 tablet Orally Once a day Active predniSONE 20 MG 1 tablet Orally Once a day for 30 day(s) For pulmonary sarcoidosis Active Dulcolax (colon prep) 5 MG take at 3:00 p.m and 7:00p.m. Orally two tablets twice a day for one day for 1 day 03/21/2021 Active IMMUNIZATIONS Vaccine Route Administration Date Status Comme nts Influenza Unknown 02/15/2018 Administered Influenza Unknown 02/18/2021 Administered SOCIAL HISTORY Tobacco Use: Social History Observation Description Date Details (start date - stop date) Never Smoker NA - NA Sex Assigned At : Social History Observation Description Sex Assigned At Unknown Tobacco Use/Smoking Question Answer Notes Patient is a nonsmoker Alcohol Screen Question Answer Notes Did you have a drink contain ing alcohol in the past year? Yes How often did you have a dri nk containing alcohol in the past year? Monthly or less (1 point) How many drinks did you have on a typical day when you were drinking in the past year? 1 or 2 drinks (0 point) How often did you have 6 or more drinks on one occasion in the past year? Never (0 point) Points 1 Interpretation Negative PROBLEMS Problem Type ICD Code Onset Dates Problem Status W/U Status Risk SNOMED Code Notes Problem History of adenomatous polyp of colon (Z86.010) Active confirmed 948617622 Problem Rectal bleeding (K62.5) Active confirmed 13221296 Problem Diverticulosis of colon (K57.30) Active confirmed Diverticulosi s of colon (901271223) PLAN OF TREATMENT Future Test Test Name Order Date COLONOSCOPY 07/27/2018 COLONOSCOPY 03/19/2021 Next Appt Details Provider Name:Mason Rock , 09/06/2024 04:00:00 PM, [address] [facility], [address], [place], [address], Insurance Providers Payer Name Payer Address Payer Phone Subscriber Number Group Number Insured Name Patient Relationship to Insured Coverage Start Date Coverage End Date [facility] [employer] [facility] [address] [address] [place], [place] [id number] NELLY OWENS Self - patient is the insured MEDICAID OF [facility] [address] [place] [address] [id number] NELLY OWENS Self - patient is the insured MEDICAL (GENERAL) HISTORY Medical History History ICD Code Denies ND,DM,CVA,Lung disease,renal dise ase 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 Calabrese Screening colonoscopy in Aug with the removal of an approximately 2 cm tubular adenoma from the ascending colon Surgical History Surgery Date(Month/Year) Hernia repair--umbilical 2018
== END 2024-06-05 15:40 | disposition home or self-care (01) ==
PROVIDERS: PCP Internal Medicine; Visit Provider Internal Medicine
DX: J84.9 Interstitial pulmonary disease, unspecified (principal); D12.6 Benign neoplasm of colon, unspecified; D68.59 Other primary thrombophilia; D86.9 Sarcoidosis, unspecified; R73.02 Impaired glucose tolerance (oral)

== ENCOUNTER → 2024-06-05 14:36 | Outpatient (BNVA) | payer OTHER, SELFPAY | PROVIDERS: PCP Internal Medicine; Visit Provider Internal Medicine | DX: J84.9 Interstitial pulmonary disease, unspecified (principal); D12.6 Benign neoplasm of colon, unspecified; D68.59 Other primary thrombophilia; D86.9 Sarcoidosis, unspecified; R73.01 Impaired fasting glucose | CPT/HCPCS: 99212 ==

== ENCOUNTER 2024-06-14 07:29 | Outpatient (REF) | payer OTHER, SELFPAY ==
--- OUTSIDE RECORDS SUMMARY | 2024-06-14 07:30 | XMS_ITS | Encounter Summary ---
Author Organization [facility] Address [address] [place] [address] Care Team Providers Care Skilled Nursing Facilities Professional Name Role Phone Jaz Myers MD Primary Care Provider Unavailabl e Encounter Details Date Type Department Care Team Description 07/14/2017 Release of Information Medical Records [address] [place] [id number] Abstract, Provider Social History Tobacco Use Types Packs/Day Years Used Date Smoking Tobacco: Never Smokeless Tobacco: Never Alcohol Use Standard Drinks/Week Comments No 0 (1 standard drink = 0.6 oz pur e alcohol) Sex Assigned at Date Recorded Not on file Job Start Date Occupation Industry Not on file Not on file Not on file documented as of this encounter Plan of Treatment Not on file documented as of this encounter Visit Diagnoses Not on filedocumented in this encounter Care Teams Skilled Nursing Facilities Professional Relationship Specialty Start Date End Date Jaz Myers MD PCP - General Internal Medicine 03/23/17 documented as of this encounter
--- OUTSIDE RECORDS SUMMARY | 2024-06-14 07:30 | XMS_ITS | Encounter Summary ---
Author Organization [facility] Address [address] [place] [address] Care Team Providers Care Equipment Lead Name Role Phone Jaz Myers MD Primary Care Provider Unavailabl e Reason for Visit * Reason Comments E-prescribe Rx Request Encounter Details Date Type Department Care Team Description 07/06/2020 Refill Pulmonology - [place] [address] [facility] [address] [place] [address] Devyn Jay MD [address] [place] [address] E-prescribe Rx Request Social History Tobacco Use Types Packs/Day Years Used Date Smoking Tobacco: Never Smokeless Tobacco: Never Alcohol Use Standard Drinks/Week Comments No 0 (1 standard drink = 0.6 oz pur e alcohol) Sex Assigned at Date Recorded Not on file Job Start Date Occupation Industry Not on file Not on file Not on file documented as of this encounter Miscellaneous Notes * Telephone Encounter - Blanca Grubbs - 07/08/2020 10:37 AM EST CHARLY- [id number] 30 day documented in this encounter Plan of Treatment Not on file documented as of this encounter Visit Diagnoses Diagnosis Sarcoidosis Cough documented in this encounter Care Teams Equipment Lead Relationship Specialty Start Date End Date Jaz Myers MD PCP - General Internal Medicine 03/23/17 documented as of this encounter
--- OUTSIDE RECORDS SUMMARY | 2024-06-14 07:30 | XMS_ITS | Encounter Summary ---
Author Organization [facility] Address [address] [place] [address] Care Team Providers Care Certified Midwife Name Role Phone Jaz Myers MD Primary Care Provider Unavailabl e Encounter Details Date Type Department Care Team Description 07/19/2017 Transfer Records Medical Records [address] [place] [id number] Abstract, Provider Social History Tobacco Use Types [...] on filedocumented in this encounter Care Teams Certified Midwife Relationship Specialty Start Date End Date Jaz Myers MD PCP - General Internal Medicine 03/23/17 documented as of this encounter
--- OUTSIDE RECORDS SUMMARY | 2024-06-14 07:30 | XMS_ITS | Encounter Summary ---
Author Organization [facility] Address [address] [place] [address] Care Team Providers Care [employer] Name Role Phone Jaz Myers MD Primary Care Provider Unavailabl e Encounter Details Date Type Department Care Team Description 04/18/2021 Orders Only Pulmonology - [place] [address] [place] [address] Devyn Jay MD [address] [place] [address] Sarcoidosis Social History Tobacco Use Types Packs/Day Years Used Date Smoking Tobacco: Never Smokeless Tobacco: Never Alcohol Use Standard Drinks/Week Comments No 0 (1 standard drink = 0.6 oz pur e alcohol) Sex Assigned at Date Recorded Not on file Job Start Date Occupation Industry Not on file Not on file Not on file COVID-19 Exposure Response Date Recorded In the last month, have you been in contact with someone who was confirmed or suspected to have Coronavirus / COVID-19? No / Unsure 04/11/2021 2:59 PM EST documented as of this encounter Plan of Treatment Not on file documented as of this encounter Procedures Procedure Name Priority Date/Time Associated Diagnosis Comments CAT SCAN OF CHEST NO CONTRAST Routine 03/20/2021 Sarcoidosis documented in this encounter Results * CHG DIAGNOSTIC COMPUTED TOMOGRAPHY THORAX W/O CNTRST (03/20/2021) Devyn Jay MD CT SCANS documented in this encounter Visit Diagnoses Diagnosis Sarcoidosis documented in this encounter Care Teams [employer] Relationship Specialty Start Date End Date Jaz Myers MD PCP - General Internal Medicine 03/23/17 documented as of this encounter
--- OUTSIDE RECORDS SUMMARY | 2024-06-14 07:30 | XMS_ITS | Encounter Summary ---
Author Organization [facility] Address [address] [place] [address] Care Team Providers Care Bleacher Lard Name Role Phone Jaz Myers MD Primary Care Provider Unavailabl e Reason for Visit * Reason Onset Date Comments Faxed Refill 10/14/2021 Methotrexate Encounter Details Date Type Department Care Team Description 10/14/2021 Refill Pulmonology - [place] [address] [facility] [address] [place] [address] Devyn Jay MD [address] [place] [address] Faxed Refill (Methotrexate) Social History Tobacco Use Types Packs/Day Years Used Date Smoking Tobacco: Never Smokeless Tobacco: Never Alcohol Use Standard Drinks/Week Comments No 0 (1 standard drink = 0.6 oz pur e alcohol) Sex Assigned at Date Recorded Not on file Job Start Date Occupation Industry Not on file Not on file Not on file COVID-19 Exposure Response Date Recorded In the last 10 days, have yo u been in contact with someone who was confirmed or suspected to have Coronavirus/COVID-19? No / Unsure 09/15/2021 2:55 PM EDT documented as of this encounter Miscellaneous Notes * Telephone Encounter - Nohemi Headleymando - 10/14/2021 11:32 AM EDT Patient would like script to be: E-PRESCRIBED/FAXED TO PHARMACY WHEN WAS THE PATIENT'S LAST APPOINTMENT IN ADULT MEDICINE? 09/15/21 WHEN WAS THE LAST TIME THE PATIENT SAW THEIR PCP? Same as above Does patient have an upcoming appointment? Yes 11/03/21 (THE MEDICATION REQUESTED IS ON THE MED LIST ABOVE) All of the medications requested were on the CURRENT MEDS list Did you check the Pharmacy information above?: YES Patient wants: 90 -day supply Is this a mail order prescription request ? NO If the refill is from a FAXED refill request what is the RX # listed on the fax? N/A Patients current insurance carrier is: Payor: [employer] FFS / Plan: [facility] / Product Type: MEDICAID RISK Patient request a 90 day prescription documented in this encounter Plan of Treatment Not on file documented as of this encounter Visit Diagnoses Diagnosis Interstitial lung disease (HCC) Postinflammatory pulmonary fibrosis documented in this encounter Care Teams Bleacher Lard Relationship Specialty Start Date End Date Jaz Myers MD PCP - General Internal Medicine 03/23/17 documented as of this encounter
[2024-06-14 09:33] LABS: Free T4 (Free Thyroxine) 0.88 ng/dL (0.71-1.85); Thyroid Stimulating Hormone 0.95 uIU/mL (0.32-4.0)
== END 2024-06-14 07:30 | disposition home or self-care (01) ==
LOC: HO.LAB 07:29
PROVIDERS: Visit Provider Internal Medicine
DX: R79.89 Other specified abnormal findings of blood chemistry (principal); Z79.01 Long term (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 of anticoagulants
CPT/HCPCS: 36415; 84439; 84443; 85610; 99211

== ENCOUNTER 2024-06-27 08:17 | Outpatient (AMB) | payer OTHER, SELFPAY ==
--- NOTE | 2024-06-27 08:24 | MHC.OFFVISCO ---
Intake Intake Visit Reasons: Anticoagulation Allergies No Known Allergies [No Known Allergies*] Allergy (Verified 06/27/24 08:19) Medication List - Last Reconciled 06/27/24 by Robyn Ulloa RN albuterol sulfate 90 mcg/actuation 2 inhalations inhalation Q6H PRN 30 days calcium citrate 500 mg (2 x 250 mg calcium) PO DAILY 30 days cetirizine 10 mg PO DAILY PRN cholecalciferol (vitamin D3) (Vitamin D3) 100 mcg (2 x 50 mcg (2,000 unit)) PO DAILY 30 days clotrimazole 1% 1 appl topical BID 4 weeks infliximab (Remicade) 336 mg IV Q4W 12 months nintedanib (Ofev) 150 mg PO Q12H 30 days omeprazole 40 mg PO DAILY Oxygen Home Use As directed prednisolone acetate 1% (Pred Forte) 1 drp ophthalmic (eye) BEDTIME prednisone 40 mg (4 x 10 mg) PO DAILY 30 days warfarin (Jantoven) 4 mg See Protocol PO BEDTIME Nursing Note INR 1.8-? out of therapeutic range- 2-3 Medications and supplements reviewed Patient status: pt cont oxygen at 2 liters. attends pulmonary rehab every and . pt states travels to [place] for poss lung transplant Medications or supplements: no changes Diet: appetite fair, states lost 32 lbs, boost prn, aware lowers inr Denies any signs and symptoms of bleeding or clotting or unusual bruising Bleeding, bruising, clotting discussed Nutritional guidance given: no greens for 2 days, eat reds to raise Dose: take 4mg then cont 2mg x 3, 4mg x 4 F/U INR Date : pt req 1 week f/u? Patient verbalizing understanding of instructions given. pt denies missed dose Anti-Coag Initial Assessment Social Hx Patient Tobacco Use Status: Never used Tobacco alcohol intake: current Alcohol intake frequency: holidays/special occasions only Coding Level of Care Code Est Patient Level 1 Diagnoses Current use of anticoagulant therapy Z79.01 Assessment & Plan Assessment & Plan (1) Current use of anticoagulant therapy: Code(s): Z79.01 - [facility] (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
[2024-06-27 08:25] LABS: Prothrombin Time Whole Bld POC 21.7 sec (11.1-13.5); ~PT, ~INR - Anti Coag Clinic 1.8 (0.9-1.1)
--- OUTSIDE RECORDS SUMMARY | 2024-06-27 08:27 | XMS_ITS | Patient Health Record ---
Author Organization [facility] Address [address] [place] [address] Care Team Providers Care Personal Banking Advisor Name Role Phone Jaz Myers MD Primary Care Provider Mason Castro [phone] ALLERGIES No Known Allergies REASON FOR REFERRAL [...] adenomatous polyp of colon (Z86.010) Active confirmed 996950082 Problem Rectal bleeding (K62.5) Active confirmed 14069217 Problem Diverticulosis of colon (K57.30) Active confirmed Diverticulosi s of colon (586119570) PLAN OF TREATMENT Future Test Test Name Order Date COLONOSCOPY 07/27/2018 COLONOSCOPY 03/19/2021 Next Appt Details Provider Name:Mason Rock , 09/06/2024 04:00:00 PM, [address] [facility], [address], [place], [address], Insurance Providers Payer Name Payer Address Payer Phone Subscriber Number Group Number Insured Name Patient Relationship to Insured Coverage Start Date Coverage End Date [facility] [employer] [facility] [employer] [facility] [address] [address] [place], [place] [id number] NELLY OWENS Self - patient is the insured [facility]ICAID [facility] [address] [place] [address] [id number] NELLY OWENS Self - patient is the insured MEDICAL (GENERAL) HISTORY Medical History History ICD Code Denies [place],DM,CVA,Lung disease,renal dise ase Pulmonary Sarcoidosis--it has also [...]
== END 2024-06-27 08:35 | disposition home or self-care (01) ==
LOC: HO.ACS 08:17
PROVIDERS: PCP Internal Medicine; Visit Provider Internal Medicine
DX: Z79.01 Long term (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 of anticoagulants (principal)

== ENCOUNTER → 2024-06-27 08:17 | Outpatient (BNVA) | payer OTHER, SELFPAY | PROVIDERS: PCP Internal Medicine; Visit Provider Internal Medicine | DX: I82.402 Acute embolism and thrombosis of unspecified deep veins of left lower extremity (principal); Z79.01 Long term (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 of anticoagulants; Z51.81 Encounter for therapeutic drug level monitoring | CPT/HCPCS: 85610; 99211 ==

== ENCOUNTER 2024-07-04 08:13 | Outpatient (AMB) | payer OTHER, SELFPAY ==
[2024-07-04 08:26] LABS: Prothrombin Time Whole Bld POC 24.7 sec (11.1-13.5); ~PT, ~INR - Anti Coag Clinic 2.1 (0.9-1.1)
--- OUTSIDE RECORDS SUMMARY | 2024-07-04 08:33 | XMS_ITS | Patient Health Record ---
Author Organization [facility] Address [address] [place] [address] Care Team Providers Care Hander In Name Role Phone Jaz Myers MD Primary Care Provider Mason Castro [phone] ALLERGIES No Known Allergies REASON FOR REFERRAL [...] W/U Status Risk SNOMED Code Notes Problem Rectal bleeding (K62.5) Active confirmed 43599473 Problem History of adenomatous polyp of colon (Z86.010) Active confirmed 689936376 Problem Diverticulosis of colon (K57.30) Active confirmed Diverticulosi s of colon (318742909) PLAN OF TREATMENT Future Test Test Name Order Date COLONOSCOPY 07/27/2018 COLONOSCOPY 03/19/2021 Next Appt Details Provider Name:Mason Rock , 09/06/2024 04:00:00 PM, [address] [facility], [address], [place], [address], Insurance Providers Payer Name Payer Address Payer Phone Subscriber Number Group Number Insured Name Patient Relationship to Insured Coverage Start Date Coverage End Date [facility] [employer] [facility] [address] [address] [place], [place] [id number] NELLY OWENS Self - patient is the insured MEDICAID OF [facility] [address] [place] [address] [id number] NELLY OWENS Self - patient is the insured MEDICAL (GENERAL) HISTORY Medical History History ICD Code Denies [place],DM,CVA,Lung disease,renal dise ase Pulmonary Sarcoidosis--it has also [...]
--- NOTE | 2024-07-04 08:35 | MHC.OFFVISCO ---
Intake Intake Visit Reasons: Anticoagulation Allergies No Known Allergies [No Known Allergies*] Allergy (Verified 07/04/24 08:20) Medication List - Last Reconciled 07/04/24 by Marcia Dave RN albuterol sulfate 90 mcg/actuation 2 inhalations inhalation Q6H PRN 30 days calcium citrate 500 mg (2 x 250 mg calcium) PO DAILY 30 days cetirizine 10 mg PO DAILY PRN cholecalciferol (vitamin D3) (Vitamin D3) 100 mcg (2 x 50 mcg (2,000 unit)) PO DAILY 30 days clotrimazole 1% 1 appl topical BID 4 weeks infliximab (Remicade) 336 mg IV Q4W 12 months nintedanib (Ofev) 150 mg PO Q12H 30 days omeprazole 40 mg PO DAILY Oxygen Home Use As directed prednisolone acetate 1% (Pred Forte) 1 drp ophthalmic (eye) BEDTIME prednisone 40 mg (4 x 10 mg) PO DAILY 30 days warfarin (Jantoven) 4 mg See Protocol PO BEDTIME Nursing Note pt ambulates to [facility] wearing O2 and mask, doing ok for him, he states he is going [facility] at this time He goes to [facility] rehab [facility] and Natalya currently INR: 2.1 in therapeutic range Medications and supplements reviewed No changes in health, diet, medications, or supplements, Denies any signs and symptoms of bleeding or bruising or clotting. Bleeding, bruising, clotting discussed Nutritional guidance given - 2 boost or ensure / week plus mixed vegetables Dose: 2mg x 2 days/ 4mg x 5 days F/U INR: weekly per pt request Patient verbalizes understanding of instructions given with read back Anti-Coag Initial Assessment Social Hx Patient Tobacco Use Status: Never used Tobacco alcohol intake: current Alcohol intake frequency: holidays/special occasions only Coding Level of Care Code Est Patient Level 1 Diagnoses Current use of anticoagulant therapy Z79.01 Assessment & Plan Assessment & Plan (1) Current use of anticoagulant therapy: Code(s): Z79.01 - 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
== END 2024-07-04 08:39 | disposition home or self-care (01) ==
LOC: HO.ACS 08:13
PROVIDERS: PCP Internal Medicine; Visit Provider Internal Medicine
DX: Z79.01 Long term (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 of anticoagulants (principal)

== ENCOUNTER → 2024-07-04 08:13 | Outpatient (BNVA) | payer OTHER, SELFPAY | PROVIDERS: PCP Internal Medicine; Visit Provider Internal Medicine | DX: I82.402 Acute embolism and thrombosis of unspecified deep veins of left lower extremity (principal); Z79.01 Long term (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 of anticoagulants; Z51.81 Encounter for therapeutic drug level monitoring | CPT/HCPCS: 85610; 99211 ==

== ENCOUNTER 2024-07-11 07:57 | Outpatient (AMB) | payer OTHER, SELFPAY ==
--- OUTSIDE RECORDS SUMMARY | 2024-07-11 08:00 | XMS_ITS | Clinical Summary ---
Author Organization [facility] Address [address] [place] [address] Care Team Providers Care Community Chest Officer Name Role Phone Jaz Myers MD Primary Care Provider Unavailabl e Allergies Active Allergy Reactions Severity Noted Date Comments No Known Drug Allergies 09/10/2016 Medications Medication Sig Dispensed Refills Start Date End Date Status warfarin (COUMADIN) 4 MG tabletIndications:DVT (deep vein thrombosis) in Take 4 Tabs by mouth daily. 0 07/03/2017 Active predniSONE (DELTASONE) 20 MG tabletIndications:Davion coidosis TAKE 1 TABLET BY MOUTH EVERY DAY 30 Tablet 2 08/28/2021 Active Methotrexate Sodium 2.5 MG TabIndications:Inters titial lung disease (HCC) Take 8 Tablets by mouth once a week for 7 days. 8 Tablet 12 01/02/2022 Active Active Problems Problem Noted Date Glaucoma 03/18/2017 Uveitis 03/18/2017 Sarcoidosis 12/11/2016 Immunizations Name Administration Dates Next Due COVID-19 (Pfizer) Pt Reported 08/21/2020, 021 Social History Tobacco Use Types Packs/Day Years Used Date Smoking Tobacco: Never Smokeless Tobacco: Never Tobacco Cessation:Counseling Given: No Alcohol Use Standard Drinks/Week Comments No 0 (1 standard drink = 0.6 oz pur e alcohol) Sex Assigned at Date Recorded Not on file Job Start Date Occupation Industry Not on file Not on file Not on file Last Filed Vital Signs Vital Sign Reading Time Taken Comments Blood Pressure 124/71 04/17/2022 8:12 AM EST Pulse 87 04/17/2022 8:12 AM EST Temperature 35.9 ??C (96.6 ??F) 04/17/2022 8:12 AM ES T Respiratory Rate 18 01/02/2022 3:28 PM EDT Oxygen Saturation 97% 04/17/2022 8:12 AM EST Inhaled Oxygen Concentration - - Weight 80.4 kg (177 lb 3.2 oz) 04/17/2022 8:12 A M EST Height 162.6 cm (5' 4 ) 01/02/2022 3:28 PM EDT Body Mass Index 30.42 01/02/2022 3:28 PM EDT Plan of Treatment Health Maintenance Due Date Last Done Comments HEPATITIS C SCREENING 1984 DTAP/TDAP/TD (1 - Tdap) 1985 PNEUMOCOCCAL VACCINE FOR HIG H RISK PATIENTS (#1) 1985 CHOLESTEROL SCREENING 1986 BASELINE HEALTH EXAM 40-64 2006 COLON CANCER SCREENING 2016 SHINGLES VACCINE (1 of 2) 2016 Covid-19 Vaccine (3 - season) 2024, 07/30/2020 INFLUENZA (#1) 2024 BMI CHECK/ADVISE 05/10/2024 DEPRESSION SCREENING/FOLLOWUP 05/10/2024 SOCIAL NEEDS SCREENING 05/10/2024 Care Teams Community Chest Officer Relationship Specialty Start Date End Date Jaz Myers MD PCP - General Internal Medicine 03/23/17
--- OUTSIDE RECORDS SUMMARY | 2024-07-11 08:00 | XMS_ITS | Encounter Summary ---
Author Organization [facility] Address [address] [place] [address] Care Team Providers Care Crossword Puzzle Maker Name Role Phone Jaz Myers MD Primary Care Provider Unavailabl e Reason for Visit * Reason Comments E-prescribe Rx Request Encounter Details Date Type Department Care Team Description 07/06/2020 Refill Pulmonology - [place] [address] [facility] [address] [place] [address] Devyn Jay MD [address] [place] [address] E-prescribe Rx Request Social History [...] Cough documented in this encounter Care Teams Crossword Puzzle Maker Relationship Specialty Start Date End Date Jaz Myers MD PCP - General Internal Medicine 03/23/17 documented as of this encounter
--- OUTSIDE RECORDS SUMMARY | 2024-07-11 08:00 | XMS_ITS | Encounter Summary ---
Author Organization [facility] Address [address] [place] [address] Care Team Providers Care Small Package And Bundle Sorter Clerk Name Role Phone Jaz Myers MD Primary Care Provider Unavailabl e Reason for Visit * Reason Onset Date Comments Faxed Refill 10/14/2021 Methotrexate Encounter Details Date Type Department Care Team Description 10/14/2021 Refill Pulmonology - [place] 175 [facility] [address] [place] [address] Devyn Jay MD [address] [place] [address] Faxed Refill (Methotrexate) Social History [...] N/A Patients current insurance carrier is: Payor: [employer] FFS / Plan: [facility] / Product Type: MEDICAID RISK Patient request a 90 day prescription documented in this encounter Plan of Treatment Not on file documented as of this encounter Visit Diagnoses Diagnosis Interstitial lung disease (HCC) Postinflammatory pulmonary fibrosis documented in this encounter Care Teams Small Package And Bundle Sorter Clerk Relationship Specialty Start Date End Date Jaz Myers MD PCP - General Internal Medicine 03/23/17 documented as of this encounter
--- OUTSIDE RECORDS SUMMARY | 2024-07-11 08:00 | XMS_ITS | Patient Health Record ---
Author Organization [facility] Address [address] [place] [address] Care Team Providers Care Hand Flatwork Finisher Name Role Phone Jaz Myers MD Primary Care Provider Mason Castro [phone] ALLERGIES No Known Allergies REASON FOR REFERRAL [...] Notes Problem Rectal bleeding (K62.5) Active confirmed 90827100 Problem History of adenomatous polyp of colon (Z86.010) Active confirmed 546782942 Problem Diverticulosis of colon (K57.30) Active confirmed Diverticulosi s of colon (485292642) PLAN OF TREATMENT Future Test Test Name Order Date COLONOSCOPY 07/27/2018 COLONOSCOPY 03/19/2021 Next Appt Details Provider Name:Mason Rock , 09/06/2024 04:00:00 PM, [address] [facility], [address], [place], [address], Insurance Providers Payer Name Payer Address Payer Phone Subscriber Number Group Number Insured Name Patient Relationship to Insured Coverage Start Date Coverage End Date [facility] [email or web address] [facility] [address] [address] [place], [place] [id number] NELLY OWENS Self - patient is the insured MEDICAID OF [facility] [address] [place] [address] [id number] NELLY OWENS Self - patient is the insured MEDICAL (GENERAL) HISTORY Medical History History ICD Code Denies DE,DM,CVA,Lung disease,renal dise ase Pulmonary Sarcoidosis--it has also [...]
--- OUTSIDE RECORDS SUMMARY | 2024-07-11 08:00 | XMS_ITS | Encounter Summary ---
Author Organization [facility] Address [address] [place] [address] Care Team Providers Care Product Marketing Director Name Role Phone Jaz Myers MD Primary Care Provider Unavailabl e Reason for Visit * Reason Comments E-prescribe Rx Request Encounter Details Date Type Department Care Team Description 08/28/2021 Refill Pulmonology - [place] [address] [facility] [address] [place] [address] Devyn Jay MD [address] [place] [address] E-prescribe Rx Request Social History [...] Miscellaneous Notes * Telephone Encounter - Nohemi Amina - 08/28/2021 10:10 AM EDT Patient would like script to be: E-PRESCRIBED/FAXED TO PHARMACY WHEN WAS THE PATIENT'S LAST APPOINTMENT IN ADULT MEDICINE? [id number] WHEN WAS THE LAST TIME THE PATIENT SAW THEIR PCP? Same as above Does patient have an upcoming appointment? Yes 09/15/2021 (THE MEDICATION REQUESTED IS ON THE MED LIST ABOVE) All of the medications requested were on the CURRENT MEDS list Did you check the Pharmacy information above?: YES Patient wants: 30 -day supply Is this a mail order prescription request ? NO If the refill is from a FAXED refill request what is the RX # listed on the fax? N/A Patients current insurance carrier is: Payor: [employer] FFS / Plan: [employer] / Product Type: MEDICAID RISK documented in this encounter Plan of Treatment Not on file documented as of this encounter Visit Diagnoses Diagnosis Sarcoidosis documented in this encounter Care Teams Product Marketing Director Relationship Specialty Start Date End Date Jaz Myers MD PCP - General Internal Medicine 03/23/17 documented as of this encounter
--- OUTSIDE RECORDS SUMMARY | 2024-07-11 08:00 | XMS_ITS | Encounter Summary ---
Author Organization [facility] Address [address] [place] [address] Care Team Providers Care Cissp Name Role Phone Jaz Myers MD Primary Care Provider Unavailabl e Reason for Visit * Reason Comments E-prescribe Rx Request Encounter Details Date Type Department Care Team Description 06/08/2020 Refill Pulmonology - [place] 175 [facility] [address] [place] [address] Devyn Jay MD [address] [place] [address] E-prescribe Rx Request Social History [...] encounter Miscellaneous Notes * Telephone Encounter - Cecelia Ford - 06/13/2020 10:48 AM EST - 12..[id number] Refills - 75 tabs documented in this encounter Plan of Treatment Not on file documented as of this encounter Visit Diagnoses Diagnosis Sarcoidosis Cough documented in this encounter Care Teams Cissp Relationship Specialty Start Date End Date Jaz Myers MD PCP - General Internal Medicine 03/23/17 documented as of this encounter
--- OUTSIDE RECORDS SUMMARY | 2024-07-11 08:00 | XMS_ITS | Encounter Summary ---
Author Organization [facility] Address [address] [place] [address] Care Team Providers Care Clinical Application Consultant Name Role Phone Jaz Myers MD Primary Care Provider Unavailabl e Encounter Details Date Type Department Care Team Description 04/18/2021 Orders Only Pulmonology - [place] [address] [facility] [address] [place] [address] Devyn Jay MD [address] [place] [address] Sarcoidosis Social History Tobacco Use [...] Sarcoidosis documented in this encounter Care Teams Clinical Application Consultant Relationship Specialty Start Date End Date Jaz Myers MD PCP - General Internal Medicine 03/23/17 documented as of this encounter
[2024-07-11 08:13] LABS: Prothrombin Time Whole Bld POC 26.7 sec (11.1-13.5); ~PT, ~INR - Anti Coag Clinic 2.2 (0.9-1.1)
--- NOTE | 2024-07-11 08:15 | MHC.OFFVISCO ---
Intake Intake Visit Reasons: Anticoagulation Allergies No Known Allergies [No Known Allergies*] Allergy (Verified 07/11/24 08:08) Medication List - Last Reconciled 07/11/24 by Mami Springer RN albuterol sulfate 90 mcg/actuation 2 inhalations inhalation Q6H PRN 30 days calcium citrate 500 mg (2 x 250 mg calcium) PO DAILY 30 days cetirizine 10 mg PO DAILY PRN cholecalciferol (vitamin D3) (Vitamin D3) 100 mcg (2 x 50 mcg (2,000 unit)) PO DAILY 30 days clotrimazole 1% 1 appl topical BID 4 weeks infliximab (Remicade) 336 mg IV Q4W 12 months nintedanib (Ofev) 150 mg PO Q12H 30 days omeprazole 40 mg PO DAILY Oxygen Home Use As directed prednisolone acetate 1% (Pred Forte) 1 drp ophthalmic (eye) BEDTIME prednisone 40 mg (4 x 10 mg) PO DAILY 30 days warfarin (Jantoven) 4 mg See Protocol PO BEDTIME Nursing Note Pt to ACS wearing portable oxygen. No resp distress. INR: 2.2 in therapeutic range of 2-3 Medications and supplements reviewed No changes in health, diet, medications, or supplements, Denies any signs and symptoms of bleeding or bruising or clotting. Bleeding, bruising, clotting discussed Nutritional guidance given to have a serving of foods that raise the INR. Dose: 4mg X 5 days and 2mg X 2 days (Sun & Thurs) F/U INR: 2 weeks Patient verbalizes understanding of instructions given Anti-Coag Initial Assessment Social Hx Patient Tobacco Use Status: Never used Tobacco alcohol intake: current Alcohol intake frequency: holidays/special occasions only Coding Level of Care Code Est Patient Level 1 Diagnoses Current use of anticoagulant therapy Z79.01 Assessment & Plan Assessment & Plan (1) Current use of anticoagulant therapy: Code(s): Z79.01 - snf (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
== END 2024-07-11 08:18 | disposition home or self-care (01) ==
LOC: HO.ACS 07:57
PROVIDERS: PCP Internal Medicine; Visit Provider Internal Medicine
DX: Z79.01 Long term (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 of anticoagulants (principal)

== ENCOUNTER → 2024-07-11 07:57 | Outpatient (BNVA) | payer OTHER, SELFPAY | PROVIDERS: PCP Internal Medicine; Visit Provider Internal Medicine | DX: I82.402 Acute embolism and thrombosis of unspecified deep veins of left lower extremity (principal); Z79.01 Long term (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 of anticoagulants; Z51.81 Encounter for therapeutic drug level monitoring | CPT/HCPCS: 85610; 99211 ==

== ENCOUNTER 2024-07-25 08:09 | Outpatient (AMB) | payer OTHER, SELFPAY ==
--- NOTE | 2024-07-25 08:12 | MHC.OFFVISCO ---
Intake Intake Visit Reasons: Anticoagulation Allergies No Known Allergies [No Known Allergies*] Allergy (Verified 07/25/24 08:08) Medication List - Last Reconciled 07/25/24 by Robyn Ulloa RN albuterol sulfate 90 mcg/actuation 2 inhalations inhalation Q6H PRN 30 days calcium citrate 500 mg (2 x 250 mg calcium) PO DAILY 30 days cetirizine 10 mg PO DAILY PRN cholecalciferol (vitamin D3) (Vitamin D3) 100 mcg (2 x 50 mcg (2,000 unit)) PO DAILY 30 days clotrimazole 1% 1 appl topical BID 4 weeks infliximab (Remicade) 336 mg IV Q4W 12 months nintedanib (Ofev) 150 mg PO Q12H 30 days omeprazole 40 mg PO DAILY Oxygen Home Use As directed prednisolone acetate 1% (Pred Forte) 1 drp ophthalmic (eye) BEDTIME prednisone 40 mg (4 x 10 mg) PO DAILY 30 days warfarin (Jantoven) 4 mg See Protocol PO BEDTIME Nursing Note INR: 2.5- in therapeutic range of 2-3 Medications and supplements reviewed- no changes No changes in health, diet, medications, or supplements, Denies any signs and symptoms of bleeding or bruising or clotting. Bleeding, bruising, clotting discussed Nutritional guidance given Dose: 2mg x 2, 4mg x 5 F/U INR: 2 weeks Patient verbalizes understanding of instructions given pt attends pulm rehab 2x/week, has cont oxygen Anti-Coag Initial Assessment Social Hx Patient Tobacco Use Status: Never used Tobacco alcohol intake: current Alcohol intake frequency: holidays/special occasions only Coding Level of Care Code Est Patient Level 1 Diagnoses Current use of anticoagulant therapy Z79.01 Assessment & Plan Assessment & Plan (1) Current use of anticoagulant therapy: Code(s): Z79.01 - supervisor intermediates (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
[2024-07-25 08:14] LABS: Prothrombin Time Whole Bld POC 29.9 sec (11.1-13.5); ~PT, ~INR - Anti Coag Clinic 2.5 (0.9-1.1)
--- OUTSIDE RECORDS SUMMARY | 2024-07-25 08:16 | XMS_ITS | Encounter Summary ---
Author Organization [facility] Address [address] [place] [address] Care Team Providers Care Steel Erector Apprentice Name Role Phone Jaz Myers MD Primary Care Provider Unavailabl e Reason for Visit * Reason Comments E-prescribe Rx Request Encounter Details Date Type Department Care Team Description 05/23/2021 Refill Pulmonology - [place] 175 [facility] [address] [place] [address] Devyn Jay MD [address] [place] [address] E-prescribe Rx Request Social History [...] encounter Miscellaneous Notes * Telephone Encounter - Jinny Mcfarland - 05/26/2021 4:02 PM EST Patient would like script to be: E-PRESCRIBED/FAXED TO PHARMACY WHEN WAS THE PATIENT'S LAST APPOINTMENT WITH THE PRESCRIBING PROVIDER? 04/11/21 Does patient have an upcoming appointment? Yes 07/15/21 (THE MEDICATION REQUESTED IS ON THE MED LIST ABOVE) All of the medications requested were on the CURRENT MEDS list Did you check the Pharmacy information above?: YES Patient wants: 30 -day supply Is this a mail order prescription request ? NO Patients current insurance carrier is: Payor: [employer] FFS / Plan: [facility] / Product Type: MEDICAID RISK documented in this encounter Plan of Treatment Not on file documented as of this encounter Visit Diagnoses Diagnosis Sarcoidosis documented in this encounter Care Teams Steel Erector Apprentice Relationship Specialty Start Date End Date Jaz Myers MD PCP - General Internal Medicine 03/23/17 documented as of this encounter
--- OUTSIDE RECORDS SUMMARY | 2024-07-25 08:16 | XMS_ITS | Patient Health Record ---
Author Organization [facility] Address [address] [place] [address] Care Team Providers Care Credit Card Associate Name Role Phone Jaz Myers MD Primary Care Provider Mason Castro [phone] Allergies No Known Allergies Reason For Referral No Information Medications Medication SIG (Take, Route, Frequency, Duration) Notes [...] one day for 1 day 03/21/2021 Active Immunizations Vaccine Route Administration Date Status Comme nts Influenza Unknown 02/15/2018 Administered Influenza Unknown 02/18/2021 Administered Social History Tobacco Use: Social History Observation Description Date Details (start date - stop date) Never Smoker NA - NA Tobacco Use/Smoking Question Answer Notes Patient is [...] Never (0 point) Points 1 Interpretation Negative Section Notes: Nonsmoker; no sig alcohol Nonsmoker; no sig alcohol Problems Problem Type SNOMED Code ICD Code Onset Dates Problem Status W/U Status Risk Notes Problem 23040442 Rectal bleeding (K62.5) Active confirmed Problem 963585941 History of adenomatous polyp of colon (Z86.010) Active confirmed Problem Diverticulosis of colon (420130768) Diverticulosis of colon (K57.30) Active confirmed Plan Of Treatment Future Test Test Name Order Date COLONOSCOPY 07/27/2018 COLONOSCOPY 03/19/2021 Next Appt Details Provider Name:Mason Rock , 09/06/2024 04:00:00 PM, [address] [facility], [address], [place], [address], Insurance Providers Payer Name Payer Address Payer Phone Subscriber Number Group Number Insured Name Patient Relationship to Insured Coverage Start Date Coverage End Date [facility] [address] [address] [place], [place] [id number] NELLY OWENS Self - patient is the insured MEDICAID OF [facility] [address] [place] [address] [id number] NELLY OWENS Self - patient is the insured Medical (General) History Medical History History ICD Code Denies [place],DM,CVA,Lung disease,renal dise ase 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 Calabrese Screening colonoscopy in Aug with the removal of an approximately 2 cm tubular adenoma from the ascending colon Surgical History Surgery Date(Month/Year) Hernia repair--umbilical 2017
--- OUTSIDE RECORDS SUMMARY | 2024-07-25 08:16 | XMS_ITS | Encounter Summary ---
Author Organization [facility] Address [address] [place] [address] Care Team Providers Care Assignment Officer Name Role Phone Jaz Myers MD Primary Care Provider Unavailabl e Encounter Details Date Type Department Care Team Description 04/18/2021 Orders Only Pulmonology - [place] 175 [facility] [address] [place] [address] Devyn Jay MD [address] [place] [address] Sarcoidosis Social History Tobacco Use [...] Sarcoidosis documented in this encounter Care Teams Assignment Officer Relationship Specialty Start Date End Date Jaz Myers MD PCP - General Internal Medicine 03/23/17 documented as of this encounter
--- OUTSIDE RECORDS SUMMARY | 2024-07-25 08:16 | XMS_ITS | Encounter Summary ---
Author Organization [facility] Address [address] [place] [address] Care Team Providers Care Refrigeration Manager Name Role Phone Jaz Myers MD Primary Care Provider Unavailabl e Reason for Visit * Reason Comments E-prescribe Rx Request Encounter Details Date Type Department Care Team Description 05/09/2020 Refill Pulmonology - [place] 175 [facility] [address] [place] [address] Devyn Jay MD [address] [place] [address] E-prescribe Rx Request Social History [...] have Coronavirus / COVID-19? No / Unsure 04/12/2020 3:11 PM EST documented as of this encounter Miscellaneous Notes * Telephone Encounter - Cecelia Ford - 05/09/2020 9:20 AM EST CHARLY - 04.12.2020Mar - 07.12.2020 Refills - 75 tabs documented in this encounter Plan of Treatment Not on file documented as of this encounter Visit Diagnoses Diagnosis Sarcoidosis Cough documented in this encounter Care Teams Refrigeration Manager Relationship Specialty Start Date End Date Jaz Myers MD PCP - General Internal Medicine 11/14/17 documented as of this encounter
--- OUTSIDE RECORDS SUMMARY | 2024-07-25 08:16 | XMS_ITS | Clinical Summary ---
Author Organization [facility] Address [address] [place] [address] Care Team Providers Care Diesel Truck Crane Operator Name Role Phone Jaz Myers MD Primary [...] 05/10/2024 SOCIAL NEEDS SCREENING 05/10/2024 Care Teams Diesel Truck Crane Operator Relationship Specialty Start Date End Date Jaz Myers MD PCP - General Internal Medicine 03/23/17
== END 2024-07-25 09:00 | disposition home or self-care (01) ==
LOC: HO.ACS 08:09
PROVIDERS: PCP Internal Medicine; Visit Provider Internal Medicine
DX: Z79.01 Long term (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 of anticoagulants (principal)

== ENCOUNTER → 2024-07-25 08:09 | Outpatient (BNVA) | payer OTHER, SELFPAY | PROVIDERS: PCP Internal Medicine; Visit Provider Internal Medicine | DX: I82.401 Acute embolism and thrombosis of unspecified deep veins of right lower extremity (principal); Z79.01 Long term (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 of anticoagulants; Z51.81 Encounter for therapeutic drug level monitoring | CPT/HCPCS: 85610; 99211 ==

== ENCOUNTER 2024-08-08 08:02 | Outpatient (AMB) | payer OTHER, SELFPAY ==
[2024-08-08 08:10] LABS: Prothrombin Time Whole Bld POC 59.1 sec (11.1-13.5); ~PT, ~INR - Anti Coag Clinic 4.9 (0.9-1.1)
--- OUTSIDE RECORDS SUMMARY | 2024-08-08 08:10 | XMS_ITS | Patient Health Record ---
Author Organization [facility] Address [address] [place] [address] Care Team Providers Care Die Engraving Supervisor Name Role Phone Jaz Myers MD Primary Care Provider Mason Castro [phone] Allergies No Known Allergies Reason For Referral [...] Problem Status W/U Status Risk Notes Problem 79194092 Rectal bleeding (K62.5) Active confirmed Problem 275733108 History of adenomatous polyp of colon (Z86.010) Active confirmed Problem Diverticulosis of colon (717377535) Diverticulosis of colon (K57.30) Active confirmed Plan Of Treatment Future Test Test Name Order Date COLONOSCOPY 07/27/2018 COLONOSCOPY 03/19/2021 Next Appt Details Provider Name:Mason Rock , 09/06/2024 04:00:00 PM, [address] [facility], [address], [place], [address], Insurance Providers Payer Name Payer Address Payer Phone Subscriber Number Group Number Insured Name Patient Relationship to Insured Coverage Start Date Coverage End Date [facility] [employer] [facility] [address] [address] [place], [place] [id number] NELLY OWENS Self - patient is the insured MEDICAID [facility] [address] [place] [address] [id number] NELLY OWENS Self - patient is the insured Medical (General) History Medical History History ICD Code Denies CA,DM,CVA,Lung disease,renal dise ase Pulmonary Sarcoidosis--it has also [...]
--- NOTE | 2024-08-08 08:21 | MHC.OFFVISCO ---
Intake Intake Visit Reasons: Anticoagulation Allergies No Known Allergies [No Known Allergies*] Allergy (Verified 08/08/24 08:03) Medication List - Last Reconciled 08/08/24 by Mami Springer RN albuterol sulfate 90 mcg/actuation 2 inhalations inhalation Q6H PRN 30 days calcium citrate 500 mg (2 x 250 mg calcium) PO DAILY 30 days cetirizine 10 mg PO DAILY PRN cholecalciferol (vitamin D3) (Vitamin D3) 100 mcg (2 x 50 mcg (2,000 unit)) PO DAILY 30 days clotrimazole 1% 1 appl topical BID 4 weeks infliximab (Remicade) 336 mg IV Q4W 12 months nintedanib (Ofev) 150 mg PO Q12H 30 days omeprazole 40 mg PO DAILY Oxygen Home Use As directed prednisolone acetate 1% (Pred Forte) 1 drp ophthalmic (eye) BEDTIME prednisone 40 mg (4 x 10 mg) PO DAILY 30 days warfarin (Jantoven) 4 mg See Protocol PO BEDTIME Nursing Note INR: 4.9?out of therapeutic range of 2-3 Pt to ACS with use of portable oxygen, Slight SOB with exertion. States his appetite is down to 1 meal a day. Has been having a lot of PB & J sandwiches which can raise the INR but decreased appetite can also raise the INR. He also states he gets frequent diarrhea as a side effect of the med Nintedanib. States he will try immodium. Medications and supplements reviewed: no changes Patient status: usual state of health Diet: decreased as above Denies any signs and symptoms of bleeding or clotting or unusual bruising Bleeding, bruising, clotting discussed Nutritional guidance given: try to have an ensure or boost every other day States not a big green eater Dose: hold today's dose of 4mg then 4mg X 5 days and 2mg X 2 days (/) F/U INR Date: 1 week Patient verbalizing understanding of instructions given. Anti-Coag Initial Assessment Social Hx Patient Tobacco Use Status: Never used Tobacco alcohol intake: current Alcohol intake frequency: holidays/special occasions only Coding Level of Care Code Est Patient Level 1 Diagnoses Current use of anticoagulant therapy Z79.01 Assessment & Plan Assessment & Plan (1) Current use of anticoagulant therapy: Code(s): Z79.01 - retirement (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
== END 2024-08-08 08:28 | disposition home or self-care (01) ==
LOC: HO.ACS 08:02
PROVIDERS: PCP Internal Medicine; Visit Provider Internal Medicine Medical Oncology
DX: Z79.01 Long term (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 of anticoagulants (principal)

== ENCOUNTER → 2024-08-08 08:02 | Outpatient (BNVA) | payer OTHER, SELFPAY | PROVIDERS: PCP Internal Medicine; Visit Provider Internal Medicine Medical Oncology | DX: I82.402 Acute embolism and thrombosis of unspecified deep veins of left lower extremity (principal); Z79.01 Long term (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 of anticoagulants; Z51.81 Encounter for therapeutic drug level monitoring | CPT/HCPCS: 85610; 99211 ==

== ENCOUNTER 2024-08-15 08:21 | Outpatient (AMB) | payer OTHER, SELFPAY ==
--- NOTE | 2024-08-15 08:30 | MHC.OFFVISCO ---
Intake Intake Visit Reasons: Anticoagulation Allergies No Known Allergies [No Known Allergies*] Allergy (Verified 08/15/24 08:22) Medication List - Last Reconciled 08/15/24 by Mami Springer RN albuterol sulfate 90 mcg/actuation 2 inhalations inhalation Q6H PRN 30 days calcium citrate 500 mg (2 x 250 mg calcium) PO DAILY 30 days cetirizine 10 mg PO DAILY PRN cholecalciferol (vitamin D3) (Vitamin D3) 100 mcg (2 x 50 mcg (2,000 unit)) PO DAILY 30 days clotrimazole 1% 1 appl topical BID 4 weeks infliximab (Remicade) 336 mg IV Q4W 12 months nintedanib (Ofev) 150 mg PO Q12H 30 days omeprazole 40 mg PO DAILY Oxygen Home Use As directed prednisolone acetate 1% (Pred Forte) 1 drp ophthalmic (eye) BEDTIME prednisone 40 mg (4 x 10 mg) PO DAILY 30 days warfarin (Jantoven) 4 mg See Protocol PO BEDTIME Nursing Note Pt to ACS with portable oxygen, no shortness of breath at rest. Able to speak full sentences. Denies complaints. INR: 2.1 in therapeutic range of 2-3 Medications and supplements reviewed No changes in health, diet, medications, or supplements, Denies any signs and symptoms of bleeding or bruising or clotting. Bleeding, bruising, clotting discussed Nutritional guidance given to have a serving of foods that raise the INR. Pt states he will have peanut butter Dose: 4mg X 5 days and 2mg X 2 day (/Th) F/U INR: 2 weeks Patient verbalizes understanding of instructions given Anti-Coag Initial Assessment Social Hx Patient Tobacco Use Status: Never used Tobacco alcohol intake: current Alcohol intake frequency: holidays/special occasions only Coding Level of Care Code Est Patient Level 1 Diagnoses Current use of anticoagulant therapy Z79.01 Results AMB INR Fingerstick AMB INR Fingerstick 2.1 Last Edit by Mami Springer RN on 08/15/24 08:27 interface delay Assessment & Plan Assessment & Plan (1) Current use of anticoagulant therapy: Code(s): 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
[2024-08-15 08:34] LABS: Prothrombin Time Whole Bld POC 24.6 sec (11.1-13.5); ~PT, ~INR - Anti Coag Clinic 2.1 (0.9-1.1)
--- OUTSIDE RECORDS SUMMARY | 2024-08-15 08:36 | XMS_ITS | Patient Health Record ---
Author Organization [facility] Address [address] [place] [address] Care Team Providers Care Mule Tender Name Role Phone Jaz Myers MD Primary Care Provider Mason Castro [phone] Allergies No Known Allergies Reason For Referral [...] Problem Status W/U Status Risk Notes Problem 89927019 Rectal bleeding (K62.5) Active confirmed Problem 215662088 History of adenomatous polyp of colon (Z86.010) Active confirmed Problem Diverticulosis of colon (009038001) Diverticulosis of colon (K57.30) Active confirmed Plan Of Treatment Future Test Test Name Order Date COLONOSCOPY 07/27/2018 COLONOSCOPY 03/19/2021 Next Appt Details Provider Name:Mason Rock , 09/06/2024 04:00:00 PM, [address], [address], [place], [address], Insurance Providers Payer Name Payer Address Payer Phone Subscriber Number Group Number Insured Name Patient Relationship to Insured Coverage Start Date Coverage End Date [facility] [address] [address] [place], [place] [id number] NELLY OWENS Self - patient is the insured MEDICAID OF [employer] [facility] [address] [place] [address] [id number] NELLY OWENS Self - patient is the insured Medical (General) History Medical History History ICD Code Denies [place],DM,CVA,Lung disease,renal dise ase Pulmonary Sarcoidosis--it has also [...]
== END 2024-08-15 08:34 | disposition home or self-care (01) ==
LOC: HO.ACS 08:21
PROVIDERS: PCP Internal Medicine; Visit Provider Internal Medicine Medical Oncology
DX: Z79.01 Long term (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 of anticoagulants (principal)

== ENCOUNTER → 2024-08-15 08:21 | Outpatient (BNVA) | payer OTHER, SELFPAY | PROVIDERS: PCP Internal Medicine; Visit Provider Internal Medicine Medical Oncology | DX: I82.402 Acute embolism and thrombosis of unspecified deep veins of left lower extremity (principal); Z79.01 Long term (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 of anticoagulants; Z51.81 Encounter for therapeutic drug level monitoring | CPT/HCPCS: 85610; 99211 ==

== ENCOUNTER 2024-08-17 08:21 | Outpatient (AMB) | payer OTHER, SELFPAY ==
--- OUTSIDE RECORDS SUMMARY | 2024-08-17 08:33 | XMS_ITS | Encounter Summary ---
Author Organization [facility] Address [address] [place] [address] Care Team Providers Care Bartender Helper Name Role Phone Jaz Myers MD Primary Care Provider Unavailabl e Reason for Visit * Reason Comments E-prescribe Rx Request Encounter Details Date Type Department Care Team Description 05/23/2021 Refill Pulmonology - [place] [address] [place] [address] Devyn Jay MD [address] [place] [address] E-prescribe Rx Request Social History [...] NO Patients current insurance carrier is: Payor: [employer] / Plan: [facility] / Product Type: MEDICAID RISK documented in this encounter Plan of Treatment Not on file documented as of this encounter Visit Diagnoses Diagnosis Sarcoidosis documented in this encounter Care Teams Bartender Helper Relationship Specialty Start Date End Date Jaz Myers MD PCP - General Internal Medicine 03/23/17 documented as of this encounter
--- OUTSIDE RECORDS SUMMARY | 2024-08-17 08:33 | XMS_ITS | Encounter Summary ---
Author Organization [facility] Address [address] [place] [address] Care Team Providers Care Roll Finisher Name Role Phone Jaz Myers MD Primary Care Provider Unavailabl e Reason for Visit * Reason Onset Date Comments Faxed Refill 10/14/2021 Methotrexate Encounter Details Date Type Department Care Team Description 10/14/2021 Refill Pulmonology - [place] [address] [facility] [address] [place] [address] Devyn Jay MD [address] [place] [address] Faxed Refill (Methotrexate) Social History [...] N/A Patients current insurance carrier is: Payor: [employer] FFS / Plan: [facility] / Product Type: MEDICAID RISK Patient request a 90 day prescription documented in this encounter Plan of Treatment Not on file documented as of this encounter Visit Diagnoses Diagnosis Interstitial lung disease (HCC) Postinflammatory pulmonary fibrosis documented in this encounter Care Teams Roll Finisher Relationship Specialty Start Date End Date Jaz Myers MD PCP - General Internal Medicine 03/23/17 documented as of this encounter
--- OUTSIDE RECORDS SUMMARY | 2024-08-17 08:33 | XMS_ITS | Encounter Summary ---
Author Organization [facility] Address [address] [place] [address] Care Team Providers Care Sanitation Tank Washer Name Role Phone Jaz Myers MD Primary Care Provider Unavailabl e Encounter Details Date Type Department Care Team Description 04/18/2021 Orders Only Pulmonology - [place] [address] [place] [address] Devyn Jay MD [address] [place] [address] Sarcoidosis Social History Tobacco Use [...] Sarcoidosis documented in this encounter Care Teams Sanitation Tank Washer Relationship Specialty Start Date End Date Jaz Myers MD PCP - General Internal Medicine 03/23/17 documented as of this encounter
--- OUTSIDE RECORDS SUMMARY | 2024-08-17 08:33 | XMS_ITS | Patient Health Record ---
Author Organization [facility] Address [address] [place] [address] Care Team Providers Care Dog Catcher Name Role Phone Jaz Myers MD Primary Care Provider Mason Castro [phone] Allergies No Known Allergies Reason For Referral [...] Problem Status W/U Status Risk Notes Problem 07959516 Rectal bleeding (K62.5) Active confirmed Problem 026592421 History of adenomatous polyp of colon (Z86.010) Active confirmed Problem Diverticulosis of colon (083439108) Diverticulosis of colon (K57.30) Active confirmed Plan Of Treatment Future Test Test Name Order Date COLONOSCOPY 07/27/2018 COLONOSCOPY 03/19/2021 Next Appt Details Provider Name:Mason Rock , 09/06/2024 04:00:00 PM, [address], [address], [place], [address], Insurance Providers Payer Name Payer Address Payer Phone Subscriber Number Group Number Insured Name Patient Relationship to Insured Coverage Start Date Coverage End Date [facility] [employer] [facility] [address] [address] [place], [place] [id number] NELLY OWENS Self - patient is the insured MEDICAID OF [id number] [facility] [address] [place] [address] [id number] NELLY OWENS Self - patient is the insured Medical (General) History Medical History History ICD Code Denies [place],DM,CVA,Lung disease,renal dise ase Pulmonary Sarcoidosis--it has also [...]
--- OUTSIDE RECORDS SUMMARY | 2024-08-17 08:33 | XMS_ITS | Encounter Summary ---
Author Organization [facility] Address [address] [place] [address] Care Team Providers Care Print Line Supervisor Name Role Phone Jaz Myers MD Primary Care Provider Unavailabl e Encounter Details Date Type Department Care Team Description 07/14/2017 Release of Information Medical Records [address] [place] [id number] Abstract, Provider Social History Tobacco Use Types [...] on filedocumented in this encounter Care Teams Print Line Supervisor Relationship Specialty Start Date End Date Jaz Myers MD PCP - General Internal Medicine 03/23/17 documented as of this encounter
--- OUTSIDE RECORDS SUMMARY | 2024-08-17 08:33 | XMS_ITS | Encounter Summary ---
Author Organization [facility] Address [address] [place] [address] Care Team Providers Care Instant Print Operator Name Role Phone Jaz Myers MD Primary Care Provider Unavailabl e Reason for Visit * Reason Comments E-prescribe Rx Request Encounter Details Date Type Department Care Team Description 07/06/2020 Refill Pulmonology - [place] [address] [place] [address] Devyn Jay MD [address] [place] [address] E-prescribe Rx Request Social History [...] Cough documented in this encounter Care Teams Instant Print Operator Relationship Specialty Start Date End Date Jaz Myers MD PCP - General Internal Medicine 03/23/17 documented as of this encounter
--- OUTSIDE RECORDS SUMMARY | 2024-08-17 08:33 | XMS_ITS | Clinical Summary ---
Author Organization [facility] Address [address] [place] [address] Care Team Providers Care Manufactured Buildings Supervisor Name Role Phone Jaz Myers MD [...] Covid-19 Vaccine (3 - season) 2024, 07/30/2020 BMI CHECK/ADVISE 05/10/2024 DEPRESSION SCREENING/FOLLOWUP 05/10/2024 SOCIAL NEEDS SCREENING 05/10/2024 INFLUENZA (Season Ended) 2025 Care Teams Manufactured Buildings Supervisor Relationship Specialty Start Date End Date Jaz Myers MD PCP - General Internal Medicine 03/23/17
--- OUTSIDE RECORDS SUMMARY | 2024-08-17 08:33 | XMS_ITS | Encounter Summary ---
Author Organization [facility] Address [address] [place] [address] Care Team Providers Care Brand Ambassador Name Role Phone Jaz Myers MD Primary Care Provider Unavailabl e Reason for Visit * Reason Comments E-prescribe Rx Request Encounter Details Date Type Department Care Team Description 05/09/2020 Refill Pulmonology - [place] [address] [facility] [address] [place] [address] Devyn Jay MD [address] [place] [address] E-prescribe Rx Request Social History [...] Cough documented in this encounter Care Teams Brand Ambassador Relationship Specialty Start Date End Date Jaz Myers MD PCP - General Internal Medicine 11/14/17 documented as of this encounter
[2024-08-17 08:37] VITALS: BP 142/76; PULSE 88; O2SAT 91; BMI 25.0
--- NOTE | 2024-08-17 08:37 | A.OFFVIS_ITS ---
Vital Signs 08/17/24 08:37 Height 5 ft 4 in Weight 145 lb 8.081 oz BMI 25.0 BP 142/76 H Blood Pressure Location Rt brachial Position Sitting Pulse 88 Pulse Source Pulse Oximeter Pulse Oximetry (%) 91 L Oxygen Delivery Method Nasal Cannula Oxygen Flow Rate 2 Intake Visit Reasons: Pulm Fibrosis Allergies No Known Allergies [No Known Allergies*] Allergy (Verified 08/17/24 08:40) HPI Comments Details: The patient is a 58-year-old gentleman with a known history of sarcoidosis. 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 At that point he also had a rash on the face. The patient was noted to have lupus pernio. He did have a biopsy-proven sarcoidosis. The patient did have a CT scan of the chest demonstrating pulmonary nodules and also lymphadenopathy. Although the diagnosis of sarcoid was made based on the skin biopsy. I do not have those results is all per the patient. The patient then was followed by a local accounts receivable manager. He was placed on prednisone. Ultimately more recently than that the patient start having worsening shortness of breath and cough. Was then placed on methotrexate up to 8 tablets of the 2.5 mg weekly. However after he started the methotrexate he has been noticing worsening cough and shortness of breath. He did have a recent chest x-ray done at the [facility] which I personally reviewed. It appears that he has a chronically elevated right hemidiaphragm but now appears to have more hazy opacities bilaterally suggesting pneumonitis. I did compare that to his previous x-ray from October which she did not have the degree of pneumonitis as he has now. Therefore I am concerned that he is having some adverse effects of the methotrexate. Assess as far as I know the only involvement of the sarcoid has been his lungs his skin and also the uveitis. 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 It is likely that the thrombotic issues are also related to sarcoidosis. He denies any other involvement of any other end-organ. We did review his blood work his total bili is a little elevated and he has had issues with liver in the past. But is hard to know for sure if is related to sarcoid any other etiology. The patient complains that his cough is very significant. He had call the on-call physician was given Tessalon Perles without any significant improvement. For now while we deal with his active sarcoid issue go ahead and give her some codeine cough syrup patient does use state Travis often at nighttime to make sure that he can stop coughing. 08/03/2022 the patient is here for a pulmonary follow-up visit. He still the same. He still complains of cough and some chest congestion. The mucus is yellowish and whitish in color. Mhbq-ov-xvpejxda severity. Did have worse at nighttime. The patient did switch over to mycophenolate from methotrexate. Seems to be tolerating it although still low dose of 100 mg twice a day. Was able to cut down the prednisone from 20 mg to 10 mg which is reassuring. Will continue to optimize his sarcoid therapy by increasing the mycophenolate to 1000 mg twice a day and also decreasing the prednisone some 0.5 mg. He also will going to go very slowly to make sure that he is able to decrease her dose effectively. We did review his CT scan of the chest demonstrating significant interstitial lung disease and pulmonary nodules when compared to his CT scan from 2014. He also had pulmonary function studies demonstrating a moderate restrictive ventilatory defect. In part he does have an elevated right hemidiaphragm that is resulting in diminished lung capacity. At this point will continue to maintain him on therapy to make sure that he does not have any progression of the scarring if is due to the sarcoidosis. 11/06/2022 the patient is here for a pulmonary follow-up visit. He continues with his ongoing chest congestion and cough. Moderate severity. Worse at nighttime. Has not responded to the respiratory therapy or the immunosuppressive therapy. He does bring up chest congestion although have been able to get a culture. We did review his CT scan of the chest. The patient does have normal findings. Based on his ongoing cough and his lack of response to his current therapy will plan to perform bronchoscopy. He does have pertinent S deficiency with hypercoagulable state and currently on Coumadin. I will be working with the Coumadin clinic in order to get him ready for the procedure. 01/29/2023 the patient is here for apulmonary follow up visit. Complaining that the cough is no better. Moderate in severity. Patient did have significant evidence of bronchomalacia. This is likely contributing to his significant cough. He also had moderate mucoid secretions that were suction. Patient is cultures were all negative. His endobronchial biopsies were negative for any sarcoidosis. Unfortunate patient continues to cough. Explained to him that the issue is the collapsing of the airways. At this point will start him on CPT with the Acapella valve to help him clear secretions. The patient will continue with current respiratory therapy. He will start cough suppressant. 05/06/2023 the patient has a telehealth visit today. He has not recovering from a viral syndrome on home. He is feeling better. He continues on the prednisone 7.5 mg daily and also continues on the mycophenolate. Seems to be tolerating therapy well and his blood sugars have been okay. In regards of his respiratory symptoms he has been coughing a little more secondary to the viral syndrome her wyyz-pp-namyjazs severity. Otherwise feels well he does need any additional therapies at this time. Will plan to repeat his CT scan in 3 months' time year from his last 1 to see the progression of his underlying nodular densities and interstitial lung disease. 08/13/2023 the patient is here for pulmonary follow-up visit. The patient continues have a cough. The cough is moderate severe. He is tried multiple medications without any significant improvement. In regards of the sarcoidosis the patient has been on the chronic prednisone and also has been on mycophenolate 2 g a day. He is noticed also worsening dyspnea on exertion. Nxwf-wf-moljkzvf severity. He did have a CT scan of the chest which we personally reviewed. It appears it has interval worsening of the pulmonary fibrosis which is concerning. He is already on high dose of mycophenolate and on chronic prednisone. Will go ahead and give him a prednisone taper to see if we can improve the symptoms. In the meantime we talked about other alternative therapies such as Remicade. The patient is open to trying these medications. Will go ahead and request blood work to make sure that he can start the therapy as soon as possible. I also did offer him a 2nd opinion at the sarcoid Clinic at [facility]. However, the patient is concerned about the drive. Will continue to discuss that. Specially in view of the worsening fibrosis. We did go for 6 minute walk test the patient did desaturate down to 87% with activity on room air. Did qualify for a conserving device at 2 L pulse. Will go ahead and request a concentrator and portable oxygen concentrator through [employer] [facility]. 10/26/2023 the patient is here for pulmonary follow-up visit. Overall the patient has been doing well. He is still coughing though. Moderate severity. Denies any shortness of breath. He was switched over to Remicade because he continued to have progression of the interstitial lung disease even on high doses of the mycophenolate. He seems to be tolerating medication well infusions are going well without any adverse effects. Will plan to repeat an x-ray in the next few months to see if there is any progression. Although his respiratory exam is indeed better this time. His cough is mainly in upper airway cough syndrome. Will try to treat him with Sudafed and also 1st generation antihistamines to see if we can settle down the cough. He is tried multiple other datj-fqg-jdfckia medications in prescription medication without any significant improvement. Follow-up in 3 months. 12/08/2023 the patient is here for hospital follow-up visit. The patient was developing worsening respiratory symptoms and he was admitted to [facility]. He had a CT scan of the chest there which I do not have available but the patient described it as rito out. Likely significant diffuse pneumonitis. The patient initially tested negative for COVID on the nasal swab but he did have a bronchoscopy that were positive for COVID. Therefore he was treated for COVID pneumonitis and pneumonia. He was placed on oxygen. He is prednisone was increased from 7.5 2 higher amount. He was subsequently discharged on a prednisone taper. The patient is still having hard time breathing he is using oxygen. We did give him a portable oxygen concentrator to use after, but, the patient has had a hard time with it. Since that is working. We did call the DME so they can look at it. In the meantime we placed him on oxygen which did help. The patient is still working. He has hard time not working and therefore he needs to have the oxygen order to continue his working activities. He did have a chest x-ray today which I personally reviewed demonstrating still persistent elevation of the right hemidiaphragm although that is chronic interstitial changes which appeared to be chronic. And some degree of ill-defined opacities in the upper lung zones which is new but since be getting better. His baseline x-ray was not normal on the 1st place. He has been on Remicade. His next dose is sometime in January. Will follow-up in a couple weeks. The meantime he is going to increase the prednisone to 20 mg from his baseline 7.5 to try to decrease the inflammatory changes. 12/30/2023 the patient is here for a pulmonary follow-up visit. He is not feeling any better. He did go up to 20 mg of prednisone. He continues on the Remicade. The patient did have a chest x-ray demonstrating interval worsening of the interstitial lung disease primarily the left hemithorax where he was primarily preserved. He does have an elevated right hemidiaphragm. He has been having issues with a portable oxygen concentrator. He did have to go up to 4 L pulse which is fine with activity. He can keep it at 2 L at rest. We talked about deep breathing exercises to make sure that he maximize his the respiratory effort and gas exchange. In view of the worsening pulmonary fibrosis will be a good candidate for Ofev. I will send a prescription to the pharmacy once we get approval. In the meantime pulmonary rehabilitation will be keep. The patient has been on 20 mg of prednisone without any significant changes in his respiratory capacity. Therefore, will start tapering down to his baseline dose 7.5 mg. Will follow-up in 4-6 weeks. 01/31/2024 the patient is here for a pulmonary follow-up visit. The patient still struggling with his breathing. The portable oxygen concentrator is not holding him. We did do a walking oximetry and he actually needs 4 L continuous with activity to maintain a pulse ox of 89% and above. Therefore he understands that we need to switch his POC to regular oxygen tanks. Will request a trial so that we can carry the oxygen little bit better. He is having hard time working because of his oxygen needs in his increased dyspnea. Therefore, will go ahead and repeat his chest x-ray and PFTs see the degree of severity. But my suspicion is that the patient is unlikely going to be able to work with this degree of disease. He recently did start the Ofev to try to minimize the progression of the fibrosis. I hope that he can tolerate the adverse effects which included diarrhea. He will continue on the prednisone although he is cutting down slowly down to 7.5 mg. he also continues on the Remicade as previously prescribed for the sarcoidosis before the severe COVID infection. At this point the patient appears to have progressive disease and unfortunately he is not developing any significant improvement as of yet. When he returns in a couple months after his PFTs and chest x-ray we can better assess his degree of disease and potential prognosis. In the meantime will request the [employer] company to change his oxygen in order for him to have adequate oxygenation and improve gas exchange. 03/27/2024 the patient is here for a pulmonary follow-up visit. Since we last spoke the patient was able to decrease the prednisone to 7.5 mg daily. in addition to that he continues on Remicade. Recently he was started on Ofev. Seems to be tolerating it just some episodes of diarrhea but the patient is adjusting well. He did undergo a recent chest x-ray which still shows significant interstitial lung disease and decreased lung volumes. Pretty similar to previous. And his PFTs again demonstrating significant restriction with also severe diffusion impairment. The patient be a great candidate for pulmonary rehabilitation at this time. saw him in the program he may need to have malaise since he is still working full-time. At this point is conditions pretty advanced. She understands that. Will go ahead and refer him [place] to see if any other medication adjustment could be provided for him to see if any improvements can be facilitated. But also because if not if he has any evidence of any progression he would also be a good candidate for lung transplantation evaluation. Therefore will refer him to [facility] in order to start the process. He still is in the oxygen although the oxygen tanks are very heavy for him to carry. I had him doing repeat conserving device trial. On 4 L pulse he was able to maintain a pulse ox of 90% He rather use the POC because of better portability outside of the home. will go ahead and try again. I will send a script to the [employer] to switch him again to the POC at least he knows what he can expect since he had been on 1 before. will continue to monitor his progress and will await the referral evaluation in [place]. 05/29/2024 The patient is here for a pulmonary follow up visit. He did have his evaluation in [place] and he was very happy with that visit. She will be starting pulmonary rehab soon. Now he is on 40mg of Prednisone and still on remicade. He continues to use oxygen, Will need to stay on continuous oxygen. We requested an oxygen cart for him. He will f/u with [place] with PFts and CT chest. In the meantime, he continues with dyspnea, moderate in severity. Also has a cough. We will continue the current therapy. Will need PCP prophylaxis if continues on high doses of prednisone. 08/17/2024 the patient is here for a pulmonary follow-up visit. He feels a little better although he still has a hard time breathing. Still on the oxygen supplementation. He has been able to cut down to 3 L. he continues on 40 mg of prednisone. He also continues on the Remicade. He has been noticing worsening cough. Typically nonproductive in nature. Could be an upper airway cough syndrome now going to the spring. His respiratory exam is reassuring. I did speak to his pulmonary team in [place] and they would like him to decrease prednisone down to 20 mg. Therefore we did come up with a regimen for decrease the medicine at this time. Will cut by 5 mg initially until he reaches 30 mg and then will cut down by 2.5 mg every 5-7 days symptoms down to 20 mg. He will continue with the rest of the therapy. When he comes back we will do another 6 minute walk test to see me qualifies for a conserving device again. In the meantime he is going to be seen the pulmonary hypertension specialist in [facility] and also will be starting the process of lung transplantation. He still taking it all in. He is moving forward with his testing. [facility] Medical History (Updated 05/26/24 @ 12:29 by Jaz Myers MD) Pneumonia due to COVID-19 virus Pulmonary fibrosis ILD (interstitial lung disease) Bronchomalacia Right inguinal hernia Sarcoidosis Pulmonary nodules Obesity (BMI 30.0-34.9) Bleeding hemorrhoids Leg pain, right LFT elevation Hyperkalemia Glaucoma BPH (benign prostatic hyperplasia) Vitamin D deficiency Hypercholesterolemia Protein S deficiency DVT (deep venous thrombosis) Thrombocytopenia Surgical History History of right inguinal hernia repair Hx of lymph node biopsy Hx of colonoscopy History of umbilical hernia repair History of appendectomy History of sinus surgery Family History Mother No problems noted. Father Medical history unknown Daughter In good health Sister In good health Brother Lung cancer Social History Household Members: Significant Other Housing: House Are you a primary health care social worker to a significant other at home: No Do you presently have visiting nurse or other home services: No Alcohol intake: current Alcohol intake frequency: holidays/special occasions only Comment: 3x a year 2 drinks Patient Tobacco Use Status: Never used Tobacco e-Cigarette/Vaping Use: Never Used Second Hand Smoke Exposure: No service: No Current occupational status: employed Cognitive needs: No Hearing needs: No Vision needs: Yes Review of Systems Const Denies body aches and Denies fever(s) Eyes Denies change in vision ENT Denies change in voice Card Denies chest pain, Reports dyspnea and Reports dyspnea on exertion Resp Denies chest congestion, Reports cough, Denies hemoptysis, Reports dyspnea, Reports dyspnea on exertion and Denies wheezing GI Denies no additional complaints Musc Reports no additional complaints Skin/Breast Denies new lesions and Reports rash Neuro Reports no additional complaints Endo Denies flushing Sina/Lymph Denies easy bruising and Denies lymphadenopathy Aller/Immun Denies wheezing Physical Exam Vital Signs: Last Vital Signs Pulse 88 08/17/24 08:37 BP 142/76 H 08/17/24 08:37 Pulse Ox 91 L 08/17/24 08:37 Oxygen Delivery Method Nasal Cannula 08/17/24 08:37 Oxygen Flow Rate 2 08/17/24 08:37 BMI result Body Mass Index 25.0 Const General: comfortable HEENT Head: Yes normocephalic Eyes General: appearance normal, both eyes and all related structures Neck Neck: Yes supple Chest Chest palpation & inspection: normal inspection of the chest Resp Effort & Inspection: normal respiratory effort Auscultation: diminished lung sounds Cardio Rate: regular rate Rhythm: regular rhythm Heart sounds: S1 normal heart sound present and S2 normal heart sound present GI Auscultation: normal bowel sounds Skin General skin exam: no rashes or lesions noted Extrem General: Yes no clubbing, cyanosis or edema Assessment & Plan Assessment & Plan (1) Pulmonary fibrosis: Comment: 2011 Code(s): J84.10 - Pulmonary fibrosis, unspecified Category: Medical (2) Pulmonary nodules: Code(s): R91.8 - Other nonspecific abnormal finding of lung field Category: Medical (3) 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 [place] Code(s): D86.9 - Sarcoidosis, unspecified Category: Medical Plan oxygen 2l/pulse at rest and 4L/pulse with activity, requesting oxygen cart Prednisone 40mg-->35mg and will taper by 5mg every 5-7 days till 30mg. Then decrease by 2.5mg every 5-7 days till reaches 20mg continue Remicade continue OFEV due to he progression of the pulmonary fibrosis CPT with acapella valve Pulmonary rehab [facility] Pulmonary for evaluation, considering lung transplant evaluation Bloodwork cough therapy F/U 3 months Medications: New chlorpheniramine maleate 4 mg PO Q6H PRN 60 tabs 6RF itching 30 days pseudoephedrine HCl ER 120 mg PO Q12H 60 tabs 1RF 30 days prednisone 10 mg (4 x 2.5 mg) PO DAILY 120 tabs 5RF 30 days Coding Level of Care Code Est Pt Level 4 (10181) Complex EM visit Add On G2211 Diagnoses Pulmonary fibrosis J84.10 Pulmonary nodules R91.8 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
== END 2024-08-17 09:07 | disposition home or self-care (01) ==
PROVIDERS: PCP Internal Medicine; Visit Provider Hospitalist
DX: J84.10 Pulmonary fibrosis, unspecified (principal); R91.8 Other nonspecific abnormal finding of lung field; Z79.52 Long term (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 of systemic steroids; J98.09 Other diseases of bronchus, not elsewhere classified; U07.1 COVID-19; J12.82 Pneumonia due to coronavirus disease 2019; J84.9 Interstitial pulmonary disease, unspecified; D86.9 Sarcoidosis, unspecified
CPT/HCPCS: 99214; G2211

== ENCOUNTER → 2024-08-17 08:21 | Outpatient (BNVA) | payer OTHER, SELFPAY | PROVIDERS: PCP Internal Medicine; Visit Provider Hospitalist | DX: J84.9 Interstitial pulmonary disease, unspecified (principal); J84.10 Pulmonary fibrosis, unspecified; J98.09 Other diseases of bronchus, not elsewhere classified; D86.9 Sarcoidosis, unspecified; U07.1 COVID-19; J12.82 Pneumonia due to coronavirus disease 2019; R91.8 Other nonspecific abnormal finding of lung field; Z99.81 Dependence on supplemental oxygen; Z79.52 Long term (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 of systemic steroids | CPT/HCPCS: 99212 ==

== ENCOUNTER 2024-08-29 08:15 | Outpatient (AMB) | payer OTHER, SELFPAY ==
--- OUTSIDE RECORDS SUMMARY | 2024-08-29 08:31 | XMS_ITS | Encounter Summary ---
Author Organization [facility] Address [address] [place] [address] Care Team Providers Care Weed Thinner Name Role Phone Jaz Myers MD Primary Care Provider Unavailabl e Encounter Details Date Type Department Care Team Description 07/19/2017 Transfer Records Medical Records [address] [place] [id number] Abstract, Provider Social History Tobacco Use Types [...] on filedocumented in this encounter Care Teams Weed Thinner Relationship Specialty Start Date End Date aJz Myers MD PCP - General Internal Medicine 03/23/17 documented as of this encounter
--- OUTSIDE RECORDS SUMMARY | 2024-08-29 08:31 | XMS_ITS | Encounter Summary ---
Author Organization [facility] Address [address] [place] [address] Care Team Providers Care Foster Care Case Manager Name Role Phone Jaz Myers MD Primary Care Provider Unavailabl e Reason for Visit * Reason Comments E-prescribe Rx Request Encounter Details Date Type Department Care Team Description 05/09/2020 Refill Pulmonology - [place] [address] [facility] [address] [place] [id number] Devyn Jay MD [address] [place] [address] E-prescribe Rx Request Social History [...] Cough documented in this encounter Care Teams Foster Care Case Manager Relationship Specialty Start Date End Date Jaz Myers MD PCP - General Internal Medicine 11/14/17 documented as of this encounter
--- OUTSIDE RECORDS SUMMARY | 2024-08-29 08:32 | XMS_ITS | Patient Health Record ---
Author Organization [facility] Address [address] [place] [address] Care Team Providers Care Embedded Software Development Engineer Name Role Phone Jaz Myers MD Primary Care Provider Mason Castro [phone] Allergies No Known Allergies Reason For Referral [...] Problem Status W/U Status Risk Notes Problem 47226107 Rectal bleeding (K62.5) Active confirmed Problem [id number] History of adenomatous polyp of colon (Z86.010) Active confirmed Problem Diverticulosis of colon (503725744) Diverticulosis of colon (K57.30) Active confirmed Plan Of Treatment Future Test Test Name Order Date COLONOSCOPY 07/27/2018 COLONOSCOPY 03/19/2021 Next Appt Details Provider Name:Mason Rock , 09/06/2024 04:00:00 PM, [address] [facility], [address], [place], [address], Insurance Providers Payer Name Payer Address Payer Phone Subscriber Number Group Number Insured Name Patient Relationship to Insured Coverage Start Date Coverage End Date [facility] [employer] [facility] [address] [address] [place], [place] [id number] NELLY OWENS Self - patient is the insured [employer] [facility] [facility] [address] [place] [address] [id number] NELLY OWENS Self - patient is the insured Medical (General) History Medical History History ICD Code Denies [place],DM,CVA,Lung [...]
--- OUTSIDE RECORDS SUMMARY | 2024-08-29 08:32 | XMS_ITS | Encounter Summary ---
Author Organization [facility] Address [address] [place] [address] Care Team Providers Care Dispenser Operator Name Role Phone Jaz Myers MD Primary Care Provider Unavailabl e Reason for Visit * Reason Onset Date Comments Faxed Refill 10/14/2021 Methotrexate Encounter Details Date Type Department Care Team Description 10/14/2021 Refill Pulmonology - [place] 175 [facility] [address] [place] [phone] Devyn Jay MD [address] [place] [address] Faxed Refill (Methotrexate) Social History [...] N/A Patients current insurance carrier is: Payor: [employer] / Plan: [employer] / Product Type: MEDICAID RISK Patient request a 90 day prescription documented in this encounter Plan of Treatment Not on file documented as of this encounter Visit Diagnoses Diagnosis Interstitial lung disease (HCC) Postinflammatory pulmonary fibrosis documented in this encounter Care Teams Dispenser Operator Relationship Specialty Start Date End Date Jaz Myers MD PCP - General Internal Medicine 03/23/17 documented as of this encounter
--- OUTSIDE RECORDS SUMMARY | 2024-08-29 08:32 | XMS_ITS | Encounter Summary ---
Author Organization [facility] Address [address] [place] [address] Care Team Providers Care Biomedical Engineer Name Role Phone Jaz Myers MD Primary Care Provider Unavailabl e Reason for Visit * Reason Onset Date Comments Faxed Refill 12/02/2021 Encounter Details Date Type Department Care Team Description 12/02/2021 Refill Pulmonology - [place] [address] [address] Devyn Jay MD [address] [place] [address] Faxed Refill Social History Tobacco Use Types Packs/Day Years [...] suspected to have Coronavirus/COVID-19? No / Unsure 11/12/2021 10:06 AM EDT documented as of this encounter Miscellaneous Notes * Telephone Encounter - Shani Mccallum - 12/02/2021 3:08 PM EDT Pharmacy fax received, requesting 90 day supply for this medication. CHARLY 11/12/21 NOV 01/02/22 documented in this encounter Plan of Treatment Not on file documented as of this encounter Visit Diagnoses Diagnosis Interstitial lung disease (HCC) Postinflammatory pulmonary fibrosis documented in this encounter Care Teams Biomedical Engineer Relationship Specialty Start Date End Date Jza Myers MD PCP - General Internal Medicine 03/23/17 documented as of this encounter
--- OUTSIDE RECORDS SUMMARY | 2024-08-29 08:32 | XMS_ITS | Encounter Summary ---
Author Organization [facility] Address [address] [place] [address] Care Team Providers Care Wafer Fab Technician Name Role Phone Jaz Myers MD Primary Care Provider Unavailabl e Encounter Details Date Type Department Care Team Description 04/18/2021 Orders Only Pulmonology - [place] 175 [facility] [address] [place] [address] Devyn aJy MD [address] [place] [address] Sarcoidosis Social History Tobacco Use [...] Sarcoidosis documented in this encounter Care Teams Wafer Fab Technician Relationship Specialty Start Date End Date Jaz Myers MD PCP - General Internal Medicine 03/23/17 documented as of this encounter
[2024-08-29 08:35] LABS: Prothrombin Time Whole Bld POC 27.5 sec (11.1-13.5); ~PT, ~INR - Anti Coag Clinic 2.3 (0.9-1.1)
--- NOTE | 2024-08-29 08:40 | MHC.OFFVISCO ---
Intake Intake Visit Reasons: Anticoagulation Allergies No Known Allergies [No Known Allergies*] Allergy (Verified 08/29/24 08:28) Medication List - Last Reconciled 08/29/24 by Mami Sharp RN albuterol sulfate 90 mcg/actuation 2 inhalations inhalation Q6H PRN 30 days calcium citrate 500 mg (2 x 250 mg calcium) PO DAILY 30 days cetirizine 10 mg PO DAILY PRN chlorpheniramine maleate 4 mg PO Q6H PRN 30 days cholecalciferol (vitamin D3) (Vitamin D3) 100 mcg (2 x 50 mcg (2,000 unit)) PO DAILY 30 days clotrimazole 1% 1 appl topical BID 4 weeks infliximab (Remicade) 336 mg IV Q4W 12 months nintedanib (Ofev) 150 mg PO Q12H 30 days omeprazole 40 mg PO DAILY Oxygen Home Use As directed prednisolone acetate 1% (Pred Forte) 1 drp ophthalmic (eye) BEDTIME prednisone 10 mg (4 x 2.5 mg) PO DAILY 30 days prednisone 40 mg (4 x 10 mg) PO DAILY 30 days pseudoephedrine HCl ER 120 mg PO Q12H 30 days warfarin (Jantoven) 4 mg See Protocol PO BEDTIME Nursing Note Amb to ACS using NC O2, wearing mask, sts doing ok Medications and supplements reviewed, continues on a prednisone taper, sts currently on 30mg pt possible bilateral lung transplant, sts he has not made his mind up yet, sts he continues to work, pacing himself on O2 cont sts doing the respiratory rehab here not really helping, but my family wants me to go so I go No other changes in health, diet, medications, or supplements, Denies any signs and symptoms of bleeding, bruising, or clotting. Bleeding, bruising, clotting discussed INR 2.3 in therapeutic range Dose: continue 2mg x 2 days and 4mg x 5 days balance diet and be consistent F/U INR: 2 weeks Patient verbalizes understanding of instructions given Anti-Coag Initial Assessment Social Hx Patient Tobacco Use Status: Never used Tobacco alcohol intake: current Alcohol intake frequency: holidays/special occasions only Coding Level of Care Code Est Patient Level 1 Diagnoses Current use of anticoagulant therapy Z79.01 Time Spent (min) 15 Assessment & Plan Assessment & Plan (1) Current use of anticoagulant therapy: Code(s): Z79.01 - USP (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
== END 2024-08-29 08:46 | disposition home or self-care (01) ==
LOC: HO.ACS 08:15
PROVIDERS: PCP Internal Medicine; Visit Provider Internal Medicine Medical Oncology
DX: Z79.01 Long term (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 of anticoagulants (principal)

== ENCOUNTER → 2024-08-29 08:15 | Outpatient (BNVA) | payer OTHER, SELFPAY | PROVIDERS: PCP Internal Medicine; Visit Provider Internal Medicine Medical Oncology | DX: I82.402 Acute embolism and thrombosis of unspecified deep veins of left lower extremity (principal); Z79.01 Long term (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 of anticoagulants; Z51.81 Encounter for therapeutic drug level monitoring | CPT/HCPCS: 85610; 99211 ==

== ENCOUNTER 2024-09-06 08:28 | Outpatient (AMB) | payer OTHER, SELFPAY ==
[2024-09-06 08:31] VITALS: BP 142/86; PULSE 97; RESP 18; TEMP 36.2; O2SAT 99; BMI 24.5
--- NOTE | 2024-09-06 08:31 | MHC.PC.OV ---
Vital Signs 09/06/24 08:31 Height 5 ft 4 in Weight 142 lb 9.6 oz BMI 24.5 BP 142/86 H Blood Pressure Location Lt brachial Position Sitting Respiration 18 Pulse 97 Pulse Source Pulse Oximeter Temp 97.1 F Temp Source Temporal Artery Scan Pulse Oximetry (%) 99 Oxygen Delivery Method Nasal Cannula Oxygen Flow Rate 2 Intake Visit Reasons: ILD Drawer In Jacquard Loom Required: No Accompanied by: Self / Same As Patient Allergies No Known Allergies [No Known Allergies*] Allergy (Verified 09/06/24 08:32) Tobacco use date assessed: 09/06/24 Dental Screening Dental Screen Date: 09/06/24 Did you have a dental visit in the last 12 months?: Yes Did you have a dental problem in the last 6 months where you did not have access to dental care?: No Was dental information given to patient?: Patient has dentist [facility] Medical History (Updated 05/26/24 @ 12:29 by Jaz Myers MD) Pneumonia due to COVID-19 virus Pulmonary fibrosis ILD (interstitial lung disease) Bronchomalacia Right inguinal hernia Sarcoidosis Pulmonary nodules Obesity (BMI 30.0-34.9) Bleeding hemorrhoids Leg pain, right LFT elevation Hyperkalemia Glaucoma BPH (benign prostatic hyperplasia) Vitamin D deficiency Hypercholesterolemia Protein S deficiency DVT (deep venous thrombosis) Thrombocytopenia Surgical History History of right inguinal hernia repair Hx of lymph node biopsy Hx of colonoscopy History of umbilical hernia repair History of appendectomy History of sinus surgery Family History Mother No problems noted. Father Medical history unknown Daughter In good health Sister In good health Brother Lung cancer Social History Household Members: Significant Other Housing: House Are you a primary children's zoo caretaker to a significant other at home: No Do you presently have visiting nurse or other home services: No Alcohol intake: current Alcohol intake frequency: holidays/special occasions only Comment: 3x a year 2 drinks Patient Tobacco Use Status: Never used Tobacco e-Cigarette/Vaping Use: Never Used Second Hand Smoke Exposure: No service: No Current occupational status: employed Cognitive needs: No Hearing needs: No Vision needs: Yes Questionnaire PHQ-9 Over the last 2 weeks, how often have you been bothered by any of the following problems? 1. Little interest or pleasure in doing things: not at all 2. Feeling down, depressed, or hopeless: not at all 3. Trouble falling or staying asleep, or sleeping too much: not at all 4. Feeling tired or having little energy: not at all 5. Poor appetite or overeating: not at all 6. Feeling bad about yourself - or that you are a failure or have let yourself or your family down: not at all 7. Trouble concentrating on things, such as reading the newspaper or watching television: not at all 8. Moving or speaking so slowly that other people could have noticed. Or the opposite - being so fidgety or restless that you have been moving around a lot more than usual: not at all 9. Thoughts that you would be better off or of hurting yourself in some way: not at all Total score: 0 Depression Screening Interpretation: Negative Depression Screening Done: Yes 14619 - PHQ-9 Billing: Yes Source: Developed by Drs. Mason Burton, Irma Morales, Waldemar Mchugh and colleagues, with an educational dc from [facility]. Thrive Questionnaire Date Thrive assessed: 09/06/24 I am a: Patient What is your living situation today?: I have a steady place to live Within the past 12 months, did the food you bought not last and you didn't have the money to get more?: I choose not to answer this question Within the past 12 months, did you worry whether your food would run out before you got money to buy more?: I choose not to answer this question Do you have trouble paying for medicines?: I choose not to answer this question Do you have trouble getting transportation to medical appointments?: I choose not to answer this question Do you have trouble paying your heating and electricity bill?: I choose not to answer this question Do you have trouble taking care of your child, family member or friend?: I choose not to answer this question Do you have trouble with day-to-day activities such as bathing, preparing meals, shopping, managing finances, etc.?: I choose not to answer this question Are you currently unemployed and looking for a job?: I choose not to answer this question Are you interested in more education?: I choose not to answer this question Please select the resources that you would like help with: None Currently or been in a relationship where the following occur: I choose not to answer THRIVE Score: 0 AUDIT C Alcohol Use Questionnaire (AUDIT-C) 1. How often do you have a drink containing alcohol?: Never Total Score: 0 Score Reviewed/Action Taken: No SANDRA-7 AMB Questionnaire SANDRA-7 Date SANDRA - 7 assessed: 09/06/24 Feeling nervous, anxious, or on edge: 0 = Not at all Not being able to stop or control worryin = Not at all Worrying too much about different things: 0 = Not at all Trouble relaxin = Not at all Being so restless that it is hard to sit still: 0 = Not at all Becoming easily annoyed or irritable: 0 = Not at all Feeling afraid as if something awful might happen: 0 = Not at all Total SANDRA-7 score (0-4 normal; 5-9 mild; 10-14 moderate; 15-21 severe): 0 Source: Developed by Drs. Mason Burton, Irma Morales, Waldemar Mchugh and colleagues, with an educational dc from [facility]. SANDRA-7 Assessment Billing SANDRA-7 Assessment Tool: SANDRA-7 Assessment 26722 Physical exam (Primary Care) Vital Signs: Last Vital Signs Temp 97.1 F 09/06/24 08:31 Pulse 97 09/06/24 08:31 Resp 18 09/06/24 08:31 BP 142/86 H 09/06/24 08:31 Pulse Ox 99 09/06/24 08:31 Oxygen Delivery Method Nasal Cannula 09/06/24 08:31 Oxygen Flow Rate 2 09/06/24 08:31 BMI result Body Mass Index 24.5 Tobacco/Smoking Status: Tobacco use Status Tobacco use date assessed 09/06/24 09/06/24 08:33 Patient Tobacco Use Status Never used Tobacco 09/06/24 08:33 Tobacco use type 06/05/24 15:39 e-Cigarette/Vaping Use Never Used 09/06/24 08:33 PHQ-9: PHQ-9 Score PHQ-9: Total score 0 09/06/24 09:15 Depression Screening Interpretation: Negative Thrive Assessment: Date of Thrive Assessment Date Thrive assessed 09/06/24 09/06/24 08:33 Currently or been in a relationship where the following occur: I choose not to answer Const General: alert; No acute distress Eyes Conjunctivae: conjunctivae normal Resp Auscultation: clear to auscultation bilaterally Cardio Rate: regular rate Rhythm: regular rhythm GI Inspection: Yes normal to inspection Extrem General: Yes normal to inspection and No edema Immunizations Boostrix Tdap 2.5 Lf unit-8 mcg-5 Lf/0.5 mL intramuscular syringe Performing Provider: Jaz Myers MD Performing Location: [facility] Administered by: Kari Ennis CMA on 09/06/24 09:15 Dose Route Admin Location Dispensed Lot Number Expiration Date FORMERLY NAMED [facility] [employer] 0.5 mL IM Left Deltoid 0.5 mL [id number] 11/17/26 [id number] [employer] VIS Given Date VIS Provided VIS Publication Date 09/06/24 Single Vaccine 20 Eligibility Eligibility Date Funding Source Not [facility] Eligible 09/06/24 Private Coding Level of Care Code Est Pt Level 4 (14869) Complex EM visit Add On G2211 Diagnoses ILD (interstitial lung disease) J84.9 Sarcoidosis D86.9 Protein S deficiency D68.59 Hypercholesterolemia E78.00 Benign prostatic hyperplasia with urinary frequency N40.1; R35.0 Lower urinary tract symptom detail: urinary frequency Lower urinary tract symptom presence: symptoms present Fatty liver K76.0 Additional Codes SANDRA-7 Assessment Billing - SANDRA-7 Assessment Tool: SANDRA-7 Assessment 00277 ([id number]) PHQ-9 - 46440 - PHQ-9 Billing: Yes ([id number]) Assessment & Plan Assessment & Plan (1) ILD (interstitial lung disease): Code(s): J84.9 - Interstitial pulmonary disease, unspecified Category: Medical Plan: Patient is being evaluated by the lung transplant team and trying to taper prednisone. Patient on Remicade and will give Tdap today. Patient was advised to get Twinrix, RSV and Shingrix from the pharmacy. Patient is meeting the Gastroenterology for colon testing and bone density has been requested (2) Sarcoidosis: Comment: dx 2011-follows w/Dr. Da Silva ([facility]) Code(s): D86.9 - Sarcoidosis, unspecified Category: Medical Plan: Patient continues to be followed up by Pulmonary and the lung transplant team and [facility]. (3) Protein S deficiency: Code(s): D68.59 - Other primary thrombophilia Category: Medical Plan: Continuing with anticoagulation presently with Coumadin. Patient will be meeting with the Hematology-Oncology today (4) Hypercholesterolemia: Code(s): E78.00 - Pure hypercholesterolemia, unspecified Category: Medical Plan: Avoid fried foods, chicken skin, eggs, butter margarine, pastries and meat. Be it pork or beef they have a lot of cholesterol (5) BPH (benign prostatic hyperplasia): Comment: Prostate 85 cc Code(s): N40.0 - Benign prostatic hyperplasia without lower urinary tract symptoms Category: Medical Qualifiers: Lower urinary tract symptom detail: urinary frequency Lower urinary tract symptom presence: symptoms present Qualified Code(s): N40.1 - Benign prostatic hyperplasia with lower urinary tract symptoms; R35.0 - Frequency of micturition Plan: Presently continue to monitor (6) Fatty liver: Code(s): K76.0 - Fatty (change of) liver, not elsewhere classified Category: Medical Plan: Low-fat diet and exercise Plan History of Present Illness The patient is a 58-year-old male presenting with a complex medical history for routine evaluation and management of chronic conditions. His notable medical history includes benign prostatic hyperplasia, hypercholesterolemia, sarcoidosis, and protein S deficiency. Of particular concern is his interstitial lung disease complicated by pulmonary fibrosis, for which he has been undergoing treatment with infliximab (Remicade) every eight weeks and nintedanib (Ofev). In May 2024, the patient was evaluated by Dr. Grey and developed advanced psychosis with a previous COVID-19 infection documented in November 2023. Subsequently, he required supplemental oxygen in November and December, during which he was diagnosed with respiratory syncytial virus (RSV) and administered a prednisone taper. Due to high risk of pneumocystis pneumonia, the patient is also on Bactrim prophylaxis. His current medication regimen includes warfarin for anticoagulation management given his history of deep vein thrombosis (DVT) in 2014, and prednisone, which is actively being tapered. The patient's recent preventative care includes a colonoscopy performed in April 2021 that identified tubular adenoma, with recommendations for follow-up, which have been delayed due to his present health issues. He has also been advised a regimen of spirometry, LABA/ICS inhalers, and additional vaccinations, including hepatitis A and B, shingles, RSV, and Tdap, to address his immunocompromised status. Health Maintenance - Pending spirometry assessment - Advised colonoscopy repeat due to prior adenoma; last colonoscopy was in April 2021 - Hepatitis A and B vaccination required; Twinrix recommended (combined A and B vaccine, 1, 2, 6 months schedule) - Shingrix vaccine recommended; two-part series (RSV and shingles vaccines available at pharmacy) - Tdap administration scheduled - Bone density test discussed; last performed in April 2022 - COVID-19 and influenza vaccination up-to-date - Pneumonia vaccination confirmed as current Social History - Exercise and activity level adjusted due to pulmonary limitations - Nutritional adjustments noted with emphasis on a low-fat diet - Support from spouse regarding health and medication management discussed Review of Systems - Respiratory: Reports breathing improvement with medication and oxygen therapy; using LABA/ICS - Musculoskeletal: Reports improved leg function and reduced pain - General: Denies any recent infections, has been experiencing weight loss - Dermatologic: Reports periodic fungal infections Physical Exam General: Cooperative, healthy appearing, comfortable, no acute distress and well developed Orientation: Patient oriented x3 Limitations: No limitations Head: Normal to inspection Ears: Hearing grossly normal bilaterally Nose: Normal external nose present Face and sinus: Normal facial exam Eyes: Appearance normal, both eyes and all related structures Neck: Normal visual inspection and Yes full ROM Respiratory: Normal respiratory effort and able to speak in complete sentences. Clear to auscultation bilaterally Cardiovascular: Regular rate and rhythm. Normal S1 and S2 GI: Normal to inspection. Soft to palpation and nontender Skin: No rashes or lesions noted Neuro: Patient oriented x3 Extremities: Normal to inspection Results Plan This visit involved managing the tapering of prednisone, continuation of infliximab, and ensuring pneumocystis prevention with Bactrim. Vaccination needs are critically being addressed with a Tdap planned for today. A low-fat diet continues as a dietary adjustment, considering hypercholesterolemia and involuntary weight loss, thus emphasizing hydration to prevent dehydration. Follow-up for bone density and spirometry remains necessary for ongoing health management. Patient was informed and verbally consented to the use of an ambient scribe for clinic note documentation during this visit. Discussion Notes During this encounter, I discussed the importance of tapering steroid use to reduce long-term risks and emphasized continuous care for pulmonary fibrosis with existing therapies like infliximab. We planned vaccinations necessary for his immunocompromised status, specifically covering hepatitis A and B, RSV, shingles, and Tdap. Vaccine-related risk factors and timing were explained explicitly, ensuring the patient's understanding of the immunization regimen. I reiterated the importance of maintaining a low-fat diet to manage cholesterol levels and reinforced adherence to medication to prevent fungal infections. The necessity for follow-ups, including bone density testing and a repeat colonoscopy, was communicated. Patient Instructions - Reduce prednisone according to the tapering schedule provided. - Continue current medications, including infliximab and Bactrim. - Follow a low-fat diet and remain hydrated to prevent dehydration. - Obtain scheduled vaccinations: hepatitis A & B, RSV, shingles, and Tdap. - Attend upcoming appointments for spirometry and bone density testing. - Monitor and report any new or worsening symptoms. - Follow up on colonoscopy and other recommended screenings. Orders: Orders XR DEXA axial skeleton Today J84.10 - Pulmonary fibrosis, unspecified, M81.0 - Age-related osteoporosis without current pathological fracture TDaP Immunization Today Z23 - Encounter for immunization Medications: Refilled clotrimazole 1% 1 appl topical BID 45 grams 2RF 4 weeks B35.6 - Tinea cruris
--- OUTSIDE RECORDS SUMMARY | 2024-09-06 08:43 | XMS_ITS | Encounter Summary ---
Author Organization [facility] Address [address] [place] [address] Care Team Providers Care Ux Architect Name Role Phone Jaz Myers MD Primary Care Provider Unavailabl e Encounter Details Date Type Department Care Team Description 04/18/2021 Orders Only Pulmonology - [place] 175 [facility] [address] [place] [address] Devyn Jay MD [address] [place] [address] Sarcoidosis Social History Tobacco Use [...] Sarcoidosis documented in this encounter Care Teams Ux Architect Relationship Specialty Start Date End Date Jaz Myers MD PCP - General Internal Medicine 03/23/17 documented as of this encounter
--- OUTSIDE RECORDS SUMMARY | 2024-09-06 08:43 | XMS_ITS | Encounter Summary ---
Author Organization [facility] Address [address] [place] [address] Care Team Providers Care Art Teacher Name Role Phone Jaz Myers MD Primary Care Provider Unavailabl e Encounter Details Date Type Department Care Team Description 07/14/2017 Release of Information Medical Records [address] [place] [id number] Abstract, Provider Social History Tobacco Use Types [...] on filedocumented in this encounter Care Teams Art Teacher Relationship Specialty Start Date End Date Jaz Myers MD PCP - General Internal Medicine 03/23/17 documented as of this encounter
--- OUTSIDE RECORDS SUMMARY | 2024-09-06 08:43 | XMS_ITS | Encounter Summary ---
Author Organization [facility] Address [address] [place] [address] Care Team Providers Care Strategy Consultant Name Role Phone aJz Myers MD Primary Care Provider Unavailabl e Reason for Visit * Reason Comments E-prescribe Rx Request Encounter Details Date Type Department Care Team Description 07/06/2020 Refill Pulmonology - [place] 175 [facility] [address] [place] [address] Devyn Jay MD [address] [place] [address] E-prescribe Rx Request Social History [...] Cough documented in this encounter Care Teams Strategy Consultant Relationship Specialty Start Date End Date Jaz Myers MD PCP - General Internal Medicine 03/23/17 documented as of this encounter
--- OUTSIDE RECORDS SUMMARY | 2024-09-06 08:43 | XMS_ITS | Encounter Summary ---
Author Organization [facility] Address [address] [place] [address] Care Team Providers Care Food Products Tester Name Role Phone Jaz Myers MD Primary Care Provider Unavailabl e Encounter Details Date Type Department Care Team Description 07/19/2017 Transfer Records Medical Records [address] [place] [id number] Abstract, Provider Social History Tobacco Use Types [...] on filedocumented in this encounter Care Teams Food Products Tester Relationship Specialty Start Date End Date Jaz Myers MD PCP - General Internal Medicine 03/23/17 documented as of this encounter
--- OUTSIDE RECORDS SUMMARY | 2024-09-06 08:43 | XMS_ITS | Encounter Summary ---
Author Organization [facility] Address [address] [place] [address] Care Team Providers Care Tankerman Name Role Phone Jaz Myers MD Primary Care Provider Unavailabl e Reason for Visit * Reason Comments E-prescribe Rx Request Encounter Details Date Type Department Care Team Description 05/09/2020 Refill Pulmonology - [place] 175 [facility] [address] [place] [phone] Devyn Jay MD [address] [place] [address] E-prescribe Rx Request Social History [...] Cough documented in this encounter Care Teams Tankerman Relationship Specialty Start Date End Date Jaz Myers MD PCP - General Internal Medicine 11/14/17 documented as of this encounter
== END 2024-09-06 09:26 | disposition home or self-care (01) ==
PROVIDERS: PCP Internal Medicine; Visit Provider Internal Medicine
DX: J84.9 Interstitial pulmonary disease, unspecified (principal); D86.9 Sarcoidosis, unspecified; D68.59 Other primary thrombophilia; E78.00 Pure hypercholesterolemia, unspecified; N40.1 Benign prostatic hyperplasia with lower urinary tract symptoms; R35.0 Frequency of micturition; K76.0 Fatty (change of) liver, not elsewhere classified; Z23 Encounter for immunization

== ENCOUNTER → 2024-09-06 08:28 | Outpatient (BNVA) | payer OTHER, SELFPAY | PROVIDERS: PCP Internal Medicine; Visit Provider Internal Medicine | DX: J84.9 Interstitial pulmonary disease, unspecified (principal); Z23 Encounter for immunization; D86.9 Sarcoidosis, unspecified; D68.59 Other primary thrombophilia; E78.00 Pure hypercholesterolemia, unspecified; N40.1 Benign prostatic hyperplasia with lower urinary tract symptoms; R35.0 Frequency of micturition; K76.0 Fatty (change of) liver, not elsewhere classified | CPT/HCPCS: 90471; 90715; 96127; 99212 ==

== ENCOUNTER 2024-09-12 08:07 | Outpatient (AMB) | payer OTHER, SELFPAY ==
--- OUTSIDE RECORDS SUMMARY | 2024-09-12 08:13 | XMS_ITS ---
Author Organization [facility] Address [address] [place] [phone] Care Team Providers Care Streetcar Starter Name Role Phone Po Jaz ROBIN Primary Care Provider Mason Castro [phone] Encounters Encounter Location Date Provider Diagnosis [facility] [address] [facility] [address] [place] [phone] 09/06/2024 Mason Rock Plan Of Treatment Next Appt Details Provider Name:Mason Rock , 11/27/2024 12:50:00 PM, [address] [place] [address] , [place], [place], [phone], Progress Notes * NELLY OWENS EDOB:[birth year] (58 yo M)Acc No.[id number]:09/06/2024 Patient:?NELLY OWENS :1965???Age:58 Y???Sex:Male Address:[address] [facility] [place], [address] * * Date:?
--- OUTSIDE RECORDS SUMMARY | 2024-09-12 08:13 | XMS_ITS | Patient Health Record ---
Author Organization [facility] Address [address] [place] [address] Care Team Providers Care Prior Authorization Technician Name Role Phone Jaz Myers MD Primary Care Provider Mason Castro [phone] Allergies No Known Allergies Reason For Referral No Information Medications Medication SIG (Take, Route, Frequency, Duration) Notes Start Date End Date Status Ofev 150 MG 1 capsule Orally every 12 hrs Active Ventolin HFA 108 (90 Base) MCG/ACT 1 puff as needed Inhalation every 4 hrs Active Omeprazole 40 MG 1 capsule 1/2 to 1 hour before morning meal Orally Once a day Active Vitamin D-3 25 MCG (1000 UT) 1 capsule Orally Once a day Active Calcium Citrate 150 MG as directed Orally Active Warfarin Sodium 4 MG 1 tablet Orally Once a day Active predniSONE 20 MG 1 tablet Orally Once a day for 30 day(s) For pulmonary sarcoidosis Active Immunizations Vaccine Route Administration Date Status Comme nts Influenza Unknown 02/15/2018 Administered Influenza Unknown 02/18/2021 Administered Influenza Unknown 01/25/2024 Administered Social History Tobacco Use: Social History [...] no sig alcohol Nonsmoker; no sig alcohol Nonsmoker; no sig alcohol Problems Problem Type SNOMED Code ICD Code Onset Dates Problem Status W/U Status Risk Notes Problem Colon cancer screening (Z12.11) Active confirmed Problem 74326502 Rectal bleeding (K62.5) Active confirmed Problem 121645990 History of adenomatous polyp of colon (Z86.010) Active confirmed Problem Preprocedural examination (018380959910357) Preprocedural examination (Z01.818) Active confirmed Problem Diverticulosis of colon (399927701) Diverticulosis of colon (K57.30) Active confirmed Vital Signs Temperature 97.8 degrees Fahrenheit 09/06/2024 Blood pressure diastolic 01 mm Hg 09/06/2024 Height 64 in 09/06/2024 Blood pressure systolic 001 mm Hg 09/06/2024 Weight 136 lbs 09/06/2024 BMI 23.34 kg/m2 09/06/2024 Procedures Procedure Date Ordered Date Performed Result Body Sit e COLONOSCOPY 09/06/2024 N/A Encounters Encounter Location Date Provider Diagnosis [facility] [address] [place] [phone] 09/06/2024 Mason Rock History of adenomato us polyp of colon Z86.010 ; Preprocedural examination Z01.818 and Colon cancer screening Z12.11 [facility] [address] [place] [phone] 09/06/2024 Mason Rock Assessments Encounter Date Diagnosis (ICD Code) Assessment Notes Treatment Notes Treatment Clinical Notes Section Notes 09/06/2024 History of adenomatous polyp of colon (ICD-10 - Z86.010) Overall, Max is not having any new or worrisome GI complaints. However, his diminished appetite in relation to the previous COVID infection and subsequent significant pulmonary disease is significant given the associated 30 to 40 pound weight loss. I suspect the diminished appetite and weight loss are in relation to his systemic illness as opposed to any significant upper GI pathology given no report of dysphagia, nausea, vomiting, nor abdominal pain. Therefore, I do not think he requires an upper endoscopy. Given the previous history of the large tubular adenoma removed in 2019 and his last colonoscopy being over 3 years ago, I would certainly typically recommend a follow-up screening colonoscopy at this time. However, in a patient such as Max with significant pulmonary disease I would usually hold off on a screening colonoscopy if they are otherwise not having any worrisome GI complaints to suggest some significant pathology in the colon. However, the difference in Max's case is that he needs the follow-up colonoscopy in order to be cleared for a potential lung transplant in [place]. As such I will plan to arrange this for him. He will need to stop Coumadin for 5 days prior to the procedure and obtain a prescription and instructions for Lovenox use from Dr. Calabrese. We will also need to obtain clearance and some records from both Dr. Da Silva and the lung transplant clinic at [facility]. Full consent has been obtained from Max for the procedure, including risks of bleeding and perforation. We did review the rationale for the colonoscopy in regard to colon cancer prevention. The procedure will be done with monitored anesthesia care. We will also schedule him for a preop visit with anesthesia as well. Max was very comfortable with this plan and was eager to proceed with a colonoscopy in order to meet all the criteria to become an eligible candidate for lung transplant. Thank you for allowing me to participate in Max's care. I shall continue to keep you advised of his progress. 09/06/2024 Preprocedural examination (ICD-10 - Z01.818) Overall, Max is not having any new or worrisome GI complaints. However, his diminished appetite in relation to the previous COVID infection and subsequent significant pulmonary disease is significant given the associated 30 to 40 pound weight loss. I suspect the diminished appetite and weight loss are in relation to his systemic illness as opposed to any significant upper GI pathology given no report of dysphagia, nausea, vomiting, nor abdominal pain. Therefore, I do not think he requires an upper endoscopy. Given the previous history of the large tubular adenoma removed in 2019 and his last colonoscopy being over 3 years ago, I would certainly typically recommend a follow-up screening colonoscopy at this time. However, in a patient such as Max with significant pulmonary disease I would usually hold off on a screening colonoscopy if they are otherwise not having any worrisome GI complaints to suggest some significant pathology in the colon. However, the difference in Max's case is that he needs the follow-up colonoscopy in order to be cleared for a potential lung transplant in [place]. As such I will plan to arrange this for him. He will need to stop Coumadin for 5 days prior to the procedure and obtain a prescription and instructions for Lovenox use from Dr. Calabrese. We will also need to obtain clearance and some records from both Dr. Da Silva and the lung transplant clinic at [facility]. Full consent has been obtained from Max for the procedure, including risks of bleeding and perforation. We did review the rationale for the colonoscopy in regard to colon cancer prevention. The procedure will be done with monitored anesthesia care. We will also schedule him for a preop visit with anesthesia as well. Max was very comfortable with this plan and was eager to proceed with a colonoscopy in order to meet all the criteria to become an eligible candidate for lung transplant. Thank you for allowing me to participate in Max's care. I shall continue to keep you advised of his progress. 09/06/2024 Colon cancer screening (ICD-10 - Z12.11) Overall, Max is not having any new or worrisome GI complaints. However, his diminished appetite in relation to the previous COVID infection and subsequent significant pulmonary disease is significant given the associated 30 to 40 pound weight loss. I suspect the diminished appetite and weight loss are in relation to his systemic illness as opposed to any significant upper GI pathology given no report of dysphagia, nausea, vomiting, nor abdominal pain. Therefore, I do not think he requires an upper endoscopy. Given the previous history of the large tubular adenoma removed in 2019 and his last colonoscopy being over 3 years ago, I would certainly typically recommend a follow-up screening colonoscopy at this time. However, in a patient such as Max with significant pulmonary disease I would usually hold off on a screening colonoscopy if they are otherwise not having any worrisome GI complaints to suggest some significant pathology in the colon. However, the difference in Max's case is that he needs the follow-up colonoscopy in order to be cleared for a potential lung transplant in [place]. As such I will plan to arrange this for him. He will need to stop Coumadin for 5 days prior to the procedure and obtain a prescription and instructions for Lovenox use from Dr. Calabrese. We will also need to obtain clearance and some records from both Dr. Da Silva and the lung transplant clinic at [facility]. Full consent has been obtained from Max for the procedure, including risks of bleeding and perforation. We did review the rationale for the colonoscopy in regard to colon cancer prevention. The procedure will be done with monitored anesthesia care. We will also schedule him for a preop visit with anesthesia as well. Max was very comfortable with this plan and was eager to proceed with a colonoscopy in order to meet all the criteria to become an eligible candidate for lung transplant. Thank you for allowing me to participate in Max's care. I shall continue to keep you advised of his progress. Plan Of Treatment Pending Test Test Name Order Date COLONOSCOPY 09/06/2024 Future Test Test Name Order Date COLONOSCOPY 07/27/2018 COLONOSCOPY 03/19/2021 Next Appt Details Provider Name:Mason Rock , 11/27/2024 12:50:00 PM, [address] [place] [address] , [place], [place], [phone], Insurance Providers Payer Name Payer Address Payer Phone Subscriber Number Group Number Insured Name Patient Relationship to Insured Coverage Start Date Coverage End Date [facility] [address] [address] [place], [place] [id number] MAX OWENS Self - patient is the insured [employer] OF [place] [address] [place] [address] [id number] MAX OWENS Self - patient is the insured Medical (General) History Medical History History ICD Code Denies [place],DM,CVA,Lung disease,renal dise ase 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 Calabrese Screening colonoscopy in Aug with the removal of an approximately 2 cm tubular adenoma from the ascending colon Colonoscopy in April 2021 revealed only a hyperplastic polyp but was otherwise negative. He came down with COVID in 2023 and subsequently has had significant pulmonary disease with associated interstitial pulmonary fibrosis that is being followed by Dr. Da Silva at [facility] Pulmonary Department and the lung transplant center at [facility] in [place].He is currently on 2 L of nasal cannula 24 hours a day as of the August 2024 office visit. Surgical History Surgery Date(Month/Year) Hernia repair--umbilical 2017
--- OUTSIDE RECORDS SUMMARY | 2024-09-12 08:13 | XMS_ITS ---
Author Organization [facility] Address [address] [place] [address] Care Team Providers Care Uc Architect Name Role Phone Po Jaz ROBIN Primary Care Provider Mason Castro [phone] Allergies No Known Allergies REASON FOR VISIT Patient presents today for a colon screening Medications Medication SIG (Take, Route, Frequency, Duration) Notes Start Date End Date Status Calcium Citrate 150 MG as directed Orally Active Warfarin Sodium 4 MG 1 tablet Orally Once a day Active predniSONE 20 MG 1 tablet Orally Once a day for 30 day(s) For pulmonary sarcoidosis Active Ofev 150 MG 1 capsule Orally every 12 hrs Active Ventolin HFA 108 (90 Base) MCG/ACT 1 puff as needed Inhalation every 4 hrs Active Omeprazole 40 MG 1 capsule 1/2 to 1 hour before morning meal Orally Once a day Active Vitamin D-3 25 MCG (1000 UT) 1 capsule Orally Once a day Active Social History Tobacco Use: Social History Observation [...] Negative Section Notes: Nonsmoker; no sig alcohol Problems Problem Type SNOMED Code ICD Code Onset Dates Problem Status W/U Status Risk Notes Problem Colon cancer screening (Z12.11) Active confirmed Problem Preprocedural examination ([id number]) Preprocedural examination (Z01.818) Active confirmed Vital Signs Temperature 97.8 degrees Fahrenheit 09/07/19 25 Blood pressure systolic 001 mm Hg 09/07/19 25 Blood pressure diastolic 01 mm Hg 025 Height 64 in 09/06/2024 Weight 136 lbs 09/06/2024 BMI 23.34 kg/m2 09/06/2024 Procedures Procedure Date Ordered Date Performed Result Body Sit e COLONOSCOPY 09/06/2024 N/A Encounters Encounter Location Date Provider Diagnosis [facility] [address] [place] [address] 09/06/2024 Mason Rock History of adenomato us polyp of colon Z86.010 ; Preprocedural examination Z01.818 and Colon cancer screening Z12.11 Assessments Encounter Date Diagnosis (ICD Code) Assessment Notes Treatment Notes Treatment Clinical Notes Section Notes 09/06/2024 History of adenomatous polyp of colon (ICD-10 - Z86.010) Overall, Nelly is not having any new or worrisome [...] time. However, in a patient such as Nelly with significant pulmonary disease I would usually hold off on a screening colonoscopy if they are otherwise not having any worrisome GI complaints to suggest some significant pathology in the colon. However, the difference in Nelly's case is that he needs the follow-up colonoscopy in order to be cleared for a potential lung transplant in [place]. As such I will plan to arrange this for him. He will need to stop Coumadin for 5 days prior to the procedure and obtain a prescription and instructions for Lovenox use from Dr. Calabrese. We will also need to obtain clearance and some records from both Dr. Da Silva and the lung transplant clinic at [facility]. Full consent has been obtained from Nelly for the procedure, including risks of bleeding and perforation. We did review the rationale for the colonoscopy in regard to colon cancer prevention. The procedure will be done with monitored anesthesia care. We will also schedule him for a preop visit with anesthesia as well. Nelly was very comfortable with this plan and was eager to proceed with a colonoscopy in order to meet all the criteria to become an eligible candidate for lung transplant. Thank you for allowing me to participate in Nelly's care. I shall continue to keep you advised of his progress. 09/06/2024 Preprocedural examination (ICD-10 - Z01.818) Overall, Nelly is not having any new or worrisome [...] time. However, in a patient such as Nelly with significant pulmonary disease I would usually hold off on a screening colonoscopy if they are otherwise not having any worrisome GI complaints to suggest some significant pathology in the colon. However, the difference in Nelly's case is that he needs the follow-up colonoscopy in order to be cleared for a potential lung transplant in [place]. As such I will plan to arrange this for him. He will need to stop Coumadin for 5 days prior to the procedure and obtain a prescription and instructions for Lovenox use from Dr. Calabrese. We will also need to obtain clearance and some records from both Dr. Da Silva and the lung transplant clinic at [facility]. Full consent has been obtained from Nelly for the procedure, including risks of bleeding and perforation. We did review the rationale for the colonoscopy in regard to colon cancer prevention. The procedure will be done with monitored anesthesia care. We will also schedule him for a preop visit with anesthesia as well. Nelly was very comfortable with this plan and was eager to proceed with a colonoscopy in order to meet all the criteria to become an eligible candidate for lung transplant. Thank you for allowing me to participate in Nelly's care. I shall continue to keep you advised of his progress. 09/06/2024 Colon cancer screening (ICD-10 - Z12.11) Overall, Nelly is not having any new or worrisome [...] time. However, in a patient such as Nelly with significant pulmonary disease I would usually hold off on a screening colonoscopy if they are otherwise not having any worrisome GI complaints to suggest some significant pathology in the colon. However, the difference in Nelly's case is that he needs the follow-up colonoscopy in order to be cleared for a potential lung transplant in [place]. As such I will plan to arrange this for him. He will need to stop Coumadin for 5 days prior to the procedure and obtain a prescription and instructions for Lovenox use from Dr. Calabrese. We will also need to obtain clearance and some records from both Dr. Da Silva and the lung transplant clinic at [facility]. Full consent has been obtained from Nelly for the procedure, including risks of bleeding and perforation. We did review the rationale for the colonoscopy in regard to colon cancer prevention. The procedure will be done with monitored anesthesia care. We will also schedule him for a preop visit with anesthesia as well. Nelly was very comfortable with this plan and was eager to proceed with a colonoscopy in order to meet all the criteria to become an eligible candidate for lung transplant. Thank you for allowing me to participate in Nelly's care. I shall continue to keep you advised of his progress. Plan Of Treatment Pending Test Test Name Order Date COLONOSCOPY 09/06/2024 Next Appt Details Follow Up: prn, Reason: Provider Name:Mason Rock , 11/27/2024 12:50:00 PM, [address] [place] [address], [id number], Progress Notes * NELLY OWENS EDOB:[birth year] (58 yo M)Acc No.[id number]:09/06/2024 Progress Notes Patient:NELLY KILGORE Provider:?Mason Rcok MD :1965???Age:58 Y???Sex:Male Filemon e:09/06/2024 Address:[address] [place], [place] [id number] Pcp:Jaz Myers MD Subjective: * Chief Complaints: * ???Patient presents today fo r a colon screening * HPI: ???incontinence:? I saw Nelly in the office today for evaluation of his personal history of a tubular adenoma of the colon and need for colorectal cancer screening. I last saw Nelly in April 2021, at which time he underwent a follow-up screening colonoscopy that was negative other than a small hyperplastic polyp. In 2018 he did have a large tubular adenoma removed from the ascending colon but I did not see any sign of residual polyp tissue in that area during the colonoscopy in 2020. Since I saw him for his colonoscopy in April 2021 he had been feeling well from a GI standpoint up until last November when he contracted COVID. He describes that his appetite has been somewhat diminished since the episode of COVID and the development of significant lung disease last November. He has lost about 40 pounds since he was in my office in 2020.? He denies any significant heartburn, dysphagia,?nausea, nor vomiting. He denies any abdominal pain or jaundice. He describes that his bowel movements have become somewhat looser and more frequent in relation to the medication OFEV that he is on for his pulmonary disease. He denies any signs of hematochezia nor melena, other than small amounts of bright red blood on the toilet paper in relation to his known hemorrhoids. Of note, he does describe having seen Dr. Serrato after the last colonoscopy in 2020 in relation to the hemorrhoids but he reports that Dr. Serrato did not think the hemorrhoids needed any type of surgery at that time. He denies any known family history of colorectal cancer. 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 It appears that he has developed interstitial pulmonary fibrosis and is under the care of both Dr. Da Silva at [facility] and the [facility] lung transplant center in [place]. Nelly has now become oxygen dependent 24 hours a day. He is currently on 2 L of nasal cannula. His physicians at the lung transplant center have requested he undergo a screening colonoscopy as part of his clearance criteria prior to being approved for a lung transplant. Laboratories from May revealed normal chemistries and renal function, normal LFTs, a white blood cell count of 9.5, hemoglobin 15.1, and platelet count of 123,000. * ROS:?General/Constitutional:?Change in appetite?Decreased appetite with associated weight loss.?Chills?denies.?Fatigue?denies.?Ophthalmologic:?Comments?all negative.?ENT:?Comments?all negative.?Respiratory:?hemoptysis?denies.?Cough?denies.?Cardiovascular:?Chest pain?denies.?Orthopnea?denies.?Gastrointestinal:?Comments?See HPI for details.?Genitourinary:?Hematuria?denies.?Dysuria?denies.?Musculoskeletal:?Painful joints?denies.?Weakness?denies.?Skin:?Itching?denies.?Rash?denies.?Neurologic:?Headache?denies.?Seizures?denies.?Psychiatric:?Comments?all negative.? * Medical History:? * Surgical History:?Hernia rep air--umbilical 2017 * Hospitalization/Major Diagno stic Procedure:?No Hospitalization History. * Family History:?Father: unkn own.?Mother: alive, diagnosed with Diabetes.? No colorectal cancer.? No family history of liver cancer. * Social History:?Tobacco Use:?Tobacco Use/Smoking?Patient is a?nonsmoker.?Drugs/Alcohol:?Alcohol Screen?Did you have a drink containing alcohol in the past year??Yes,?How often did you have a drink containing alcohol in the past year??Monthly or less (1 point), How many drinks did you have on a typical day when you were drinking in the past year??1 or 2 drinks (0 point),?How often did you have 6 or more drinks on one occasion in the past year??Never (0 point),?Points?1,?Interpretation?Negative.?Miscellaneous:?Marital status: . 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 ???Nonsmoker; no sig alcohol. * Medications:?TakingCalcium C itrate 150 MG Capsule as directed Orally Vitamin D-3 25 MCG (1000 UT) Capsule 1 capsule Orally Once a day Ventolin HFA 108 (90 Base) MCG/ACT Aerosol Solution 1 puff as needed Inhalation every 4 hrs Ofev 150 MG Capsule 1 capsule Orally every 12 hrs Omeprazole 40 MG Capsule Delayed Release 1 capsule 1/2 to 1 hour before morning meal Orally Once a day predniSONE 20 MG Tablet 1 tablet Orally Once a day , Notes to Pharmacist: For pulmonary sarcoidosisWarfarin Sodium 4 MG Tablet 1 tablet Orally Once a day Taking Calcium Citrate 150 MG Capsule as directed Orally Taking Vitamin D-3 25 MCG (1000 UT) Capsule 1 capsule Orally Once a day Taking Ventolin HFA 108 (90 Base) MCG/ACT Aerosol Solution 1 puff as needed Inhalation every 4 hrs Taking Ofev 150 MG Capsule 1 capsule Orally every 12 hrs Taking Omeprazole 40 MG Capsule Delayed Release 1 capsule 1/2 to 1 hour before morning meal Orally Once a day Taking predniSONE 20 MG Tablet 1 tablet Orally Once a day , Notes to Pharmacist: For pulmonary sarcoidosisTaking Warfarin Sodium 4 MG Tablet 1 tablet Orally Once a day DiscontinuedMiraLax (colon prep) 17 GM/SCOOP Powder 238 Gram bottle mixed with Gatorade or Crystal Light Orally begin at 5:00 p.m. the day before the procedure Dulcolax (colon prep) 5 MG Tablet Delayed Release take at 3:00 p.m and 7:00p.m. Orally two tablets twice a day for one day Medication List reviewed and reconciled with the patientDiscontinued MiraLax (colon prep) 17 GM/SCOOP Powder 238 Gram bottle mixed with Gatorade or Crystal Light Orally begin at 5:00 p.m. the day before the procedure Discontinued Dulcolax (colon prep) 5 MG Tablet Delayed Release take at 3:00 p.m and 7:00p.m. Orally two tablets twice a day for one day Medication List reviewed and reconciled with the patient * Allergies:?N.K.D.A.yes[Aller gies Verified] Objective: * Vitals:?Wt:136lbs, Ht: 64 in , BMI:23.34Index, BP:001/01mm Hg, Temp:97.8, Wt-k.69. * Examination: ???General Examination: ?GENERAL APPEARANCE:?Pleasant,alert male in no acute distress--He is wearing nasal cannula oxygen.?EYES:?sclera non-icteric.?ORAL CAVITY:?mucosa moist.?NECK/THYROID:?no cervical lymphadenopathy, neck supple.?SKIN:?nonjaundiced, no spider angiomata.?HEART:?S1, S2 normal.?LUNGS:?clear to auscultation bilaterally, diminished breath sounds throughout.?ABDOMEN:?normal bowel sounds, no guarding or rigidity, no guarding or rigidity, no masses palpable, soft, nontender, nondistended.?EXTREMITIES:?no edema.?NEUROLOGIC:?alert and oriented.? Assessment: * Assessment: 1.?Preprocedural examination - Z01.818 (Primary)???2.?History of adenomatous polyp of colon - Z86.010???3.?Colon cancer screening - Z12.11??? Overall, Nelly is not having any new or worrisome [...] time. However, in a patient such as Nelly with significant pulmonary disease I would usually hold off on a screening colonoscopy if they are otherwise not having any worrisome GI complaints to suggest some significant pathology in the colon. However, the difference in Nelly's case is that he needs the follow-up colonoscopy in order to be cleared for a potential lung transplant in [place]. As such I will plan to arrange this for him. He will need to stop Coumadin for 5 days prior to the procedure and obtain a prescription and instructions for Lovenox use from Dr. Calabrese. We will also need to obtain clearance and some records from both Dr. Da Silva and the lung transplant clinic at [facility]. Full consent has been obtained from Nelly for the procedure, including risks of bleeding and perforation. We did review the rationale for the colonoscopy in regard to colon cancer prevention. The procedure will be done with monitored anesthesia care. We will also schedule him for a preop visit with anesthesia as well. Nelly was very comfortable with this plan and was eager to proceed with a colonoscopy in order to meet all the criteria to become an eligible candidate for lung transplant. Thank you for allowing me to participate in Nelly's care. I shall continue to keep you advised of his progress. Plan: * Treatment: 2.?Colon cancer screening?Procedure: COLONOSCOPY* with MAC and a PAT appointme nt. Stop Coumadin for 5 days before the colonoscopy and arrange the Lovenox injecton prescription from Dr. Calabrese. We will need a clearance from Dr. Da Silva and the [facility].Telma Isbelln 09/06/2024 04:57:11 PM EDT > * Procedure Codes:?86590 DIAGN OSTIC [id number] COLORECTAL CA SCREEN DOC [id number] TOBACCO [id number] BP SCR NOT PRFRM REC REASON [id number] RCMND FLW-UP 10 YRS DOCD * Follow Up:?prn * * Sign off status: Completed true * Provider:?Mason Rock MD Date:? 025 Generated for Bridgett gloria/Dipika/Carolinaitting on:?09/12/2024 08:13 AM EDT History and Physical Notes * HPI (History of Present Illness) Category Sub-Category Detail Notes Category Not es incontinence I saw Nelly in the office today for evaluation of his personal history of a tubular adenoma of the colon and need for colorectal cancer screening. I last saw Nelly in April 2021, at which time he underwent a follow-up screening colonoscopy that was negative other than a small hyperplastic polyp. In 2018 he did have a large tubular adenoma removed from the ascending colon but I did not see any sign of residual polyp tissue in that area during the colonoscopy in 2020. Since I saw him for his colonoscopy in April 2021 he had been feeling well from a GI standpoint up until last November when he contracted COVID. He describes that his appetite has been somewhat diminished since the episode of COVID and the development of significant lung disease last November. He has lost about 40 pounds since he was in my office in 2020. He denies any significant heartburn, dysphagia, nausea, nor vomiting. He denies any abdominal pain or jaundice. He describes that his bowel movements have become somewhat looser and more frequent in relation to the medication OFEV that he is on for his pulmonary disease. He denies any signs of hematochezia nor melena, other than small amounts of bright red blood on the toilet paper in relation to his known hemorrhoids. Of note, he does describe having seen Dr. Serrato after the last colonoscopy in 2020 in relation to the hemorrhoids but he reports that Dr. Serrato did not think the hemorrhoids needed any type of surgery at that time. He denies any known family history of colorectal cancer. 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 It appears that he has developed interstitial pulmonary fibrosis and is under the care of both Dr. Da Silva at [facility] and the [facility] lung transplant center in [place]. Nelly has now become oxygen dependent 24 hours a day. He is currently on 2 L of nasal cannula. His physicians at the lung transplant center have requested he undergo a screening colonoscopy as part of his clearance criteria prior to being approved for a lung transplant. Laboratories from May revealed normal chemistries and renal function, normal LFTs, a white blood cell count of 9.5, hemoglobin 15.1, and platelet count of 123,000. Examination Category Sub-Category Detail Notes Category Not es General Examination GENERAL APPEARANCE: Pleasant ,alert male in no acute distress--He is wearing nasal cannula oxygen HEAD: EYES: sclera non-icteric EARS: NOSE: THROAT: NECK/THYROID: no cervical lymphade nopathy, neck supple HEART: S1, S2 normal CHEST: LUNGS: clear to auscultatio n bilaterally, diminished breath sounds throughout ABDOMEN: normal bowel sounds, no guarding or rigidity, no guarding or rigidity, no masses palpable, soft, nontender, nondistended NEUROLOGIC: alert and oriented SKIN: nonjaundiced, no spi charo angiomata EXTREMITIES: no edema PERIPHERAL PULSES: BACK: BREASTS: MUSCULOSKELETAL: MALE GENITOURINARY: LYMPH NODES: RECTAL EXAM: FEMALE GENITOURINARY: ORAL CAVITY: mucosa moist
[2024-09-12 08:16] LABS: Prothrombin Time Whole Bld POC 25.5 sec (11.1-13.5); ~PT, ~INR - Anti Coag Clinic 2.1 (0.9-1.1)
--- NOTE | 2024-09-12 08:21 | MHC.OFFVISCO ---
Intake Intake Visit Reasons: Anticoagulation Allergies No Known Allergies [No Known Allergies*] Allergy (Verified 09/12/24 08:10) Medication List - Last Reconciled 09/12/24 by Mami Springer RN albuterol sulfate 90 mcg/actuation 2 inhalations inhalation Q6H PRN 30 days calcium citrate 500 mg (2 x 250 mg calcium) PO DAILY 30 days cetirizine 10 mg PO DAILY PRN chlorpheniramine maleate 4 mg PO Q6H PRN 30 days cholecalciferol (vitamin D3) (Vitamin D3) 100 mcg (2 x 50 mcg (2,000 unit)) PO DAILY 30 days clotrimazole 1% 1 appl topical BID 4 weeks enoxaparin (Lovenox) 60 mg (0.6 mL) subcut Q12H infliximab (Remicade) 336 mg IV Q4W 12 months nintedanib (Ofev) 150 mg PO Q12H 30 days omeprazole 40 mg PO DAILY Oxygen Home Use As directed prednisolone acetate 1% (Pred Forte) 1 drp ophthalmic (eye) BEDTIME prednisone 20 mg PO DAILY prednisone 5 mg PO DAILY pseudoephedrine HCl ER 120 mg PO Q12H 30 days warfarin (Jantoven) 4 mg See Protocol PO BEDTIME Nursing Note Pt to ACS on portable O2 and wearing a mask. States he feels ok but SOB with exertion. Mod bruise on left arm pt states from IV remicade infusion. No other bruising. Continues on prednisone taper now at 20mg. INR: 2.1 in therapeutic range of 2-3 Medications and supplements reviewed No changes in health, diet, medications, or supplements, Denies any signs and symptoms of bleeding or bruising or clotting. Bleeding, bruising, clotting discussed Nutritional guidance given to avoid greens next 2 days and to have some foods from the list that raises the INR. Food list reviewed. 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
== END 2024-09-12 08:27 | disposition home or self-care (01) ==
LOC: HO.ACS 08:07
PROVIDERS: PCP Internal Medicine; Visit Provider Internal Medicine Medical Oncology
DX: Z79.01 Long term (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 of anticoagulants (principal)

== ENCOUNTER → 2024-09-12 08:07 | Outpatient (BNVA) | payer OTHER, SELFPAY | PROVIDERS: PCP Internal Medicine; Visit Provider Internal Medicine Medical Oncology | DX: I82.402 Acute embolism and thrombosis of unspecified deep veins of left lower extremity (principal); Z79.01 Long term (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 of anticoagulants; Z51.81 Encounter for therapeutic drug level monitoring | CPT/HCPCS: 85610; 99211 ==

== ENCOUNTER 2024-09-15 09:30 | Outpatient (AMB) | payer OTHER, SELFPAY ==
[2024-09-15 09:32] VITALS: BP 136/74; PULSE 110; O2SAT 97; BMI 24.4
--- NOTE | 2024-09-15 09:32 | A.OFFVIS_ITS ---
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 Initially back in 2014 approximately the patient developed uveitis with sig nificant redness of his left eye. At that point he also had a rash on the face. The patient was noted to have lupus pernio. He did have a biopsy-proven sarcoidosis. The patient did have a CT scan of the chest demonstrating pulmonary nodules and also lymphadenopathy. Although the diagnosis of sarcoid was made based on the skin biopsy. I do not have those results is all per the patient. The patient then was followed by a local rehabilitation therapy technician. He was placed on prednisone. Ultimately more recently than that the patient start having worsening shortness of breath and cough. Was then placed on methotrexate up to 8 tablets of the 2.5 mg weekly. However after he started the methotrexate he has been noticing worsening cough and shortness of breath. He did have a recent chest x-ray done at the [facility] which I personally reviewed. It appears that he has a chronically elevated right hemidiaphragm but now appears to have more hazy opacities bilaterally suggesting pneumonitis. I did compare that to his previous x-ray from October which she did not have the degree of pneumonitis as he has now. Therefore I am concerned that he is having some adverse effects of the methotrexate. Assess as far as I know the only involvement of the sarcoid has been his lungs his skin and also the uveitis. 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 It is likely that the thrombotic issues are also related to sarcoidosis. He denies any other involvement of any other end-organ. We did review his blood work his total bili is a little elevated and he has had issues with liver in the past. But is hard to know for sure if is related to sarcoid any other etiology. The patient complains that his cough is very significant. He had call the on-call physician was given Laith Kraus without any significant improvement. For now while we deal with his active sarcoid issue go ahead and give her some codeine cough syrup patient does use state Travis often at nighttime to make sure that he can stop coughing. 08/03/2022 the patient is here for a pulmonary follow-up visit. He still the same. He still complains of cough and some chest congestion. The mucus is yellowish and whitish in color. [id number] severity. Did have worse at nighttime. The patient did switch over to mycophenolate from methotrexate. Seems to be tolerating it although still low dose of 100 mg twice a day. Was able to cut down the prednisone from 20 mg to 10 mg which is reassuring. Will continue to optimize his sarcoid therapy by increasing the mycophenolate to 1000 mg twice a day and also decreasing the prednisone some 0.5 mg. He also will going to go very slowly to make sure that he is able to decrease her dose effectively. We did review his CT scan of the chest demonstrating significant interstitial lung disease and pulmonary nodules when compared to his CT scan from 2014. He also had pulmonary function studies demonstrating a moderate restrictive ventilatory defect. In part he does have an elevated right hemidiaphragm that is resulting in diminished lung capacity. At this point will continue to maintain him on therapy to make sure that he does not have any progression of the scarring if is due to the sarcoidosis. 11/06/2022 the patient is here for a pulmonary follow-up visit. He continues with his ongoing chest congestion and cough. Moderate severity. Worse at nighttime. Has not responded to the respiratory therapy or the immunosuppressive therapy. He does bring up chest congestion although have been able to get a culture. We did review his CT scan of the chest. The patient does have normal findings. Based on his ongoing cough and his lack of response to his current therapy will plan to perform bronchoscopy. He does have per tinent S deficiency with hypercoagulable state and currently on Coumadin. I will be working with the Coumadin clinic in order to get him ready for the procedure. 01/29/2023 the patient is here for apulmonary follow up visit. Complaining that the cough is no better. Moderate in severity. Patient did have significant evidence of bronchomalacia. This is likely contributing to his significant c ough. He also had moderate mucoid secretions that were suction. Patient is cultures were all negative. His endobronchial biopsies were negative for any sarcoidosis. Unfortunate patient continues to cough. Explained to him that the issue is the collapsing of the airways. At this point will start him on CPT with the Acapella valve to help him clear secretions. The patient will continue with current respiratory therapy. He will start cough suppressant. 05/06/2023 the patient has a telehealth visit today. He has not recovering from a viral syndrome on home. He is feeling better. He continues on the prednisone 7.5 mg daily and also continues on the mycophenolate. Seems to be tolerating therapy well and his blood sugars have been okay. In regards of his respiratory symptoms he has been coughing a little more secondary to the viral syndrome her dlqy-pb-pjaoqyxt severity. Otherwise feels well he does need any additional therapies at this time. Will plan to repeat his CT scan in 3 months' time year from his last 1 to see the progression of his underlying nodular densities and interstitial lung disease. 08/13/2023 the patient is here for pulmonary follow-up visit. The patient continues have a cough. The cough is moderate severe. He is tried multiple medications without any significant improvement. In regards of the sarcoidosis the patient has been on the chronic prednisone and also has been on mycophenolate 2 g a day. He is noticed also worsening dyspnea on exertion. Zdsn-xm-[id number] severity. He did have a CT scan of the chest which we personally reviewed. It appears it has interval worsening of the pulmonary fibrosis which is concerning. He is already on high dose of mycophenolate and on chronic prednisone. Will go ahead and give him a prednisone taper to see if we can improve the symptoms. In the meantime we talked about other alternative therapies such as Remicade. The patient is open to trying these medications. Will go ahead and request blood work to make sure that he can start the therapy as soon as possible. I also did offer him a 2nd opinion at the sarcoid Clinic at [facility]. However, the patient is concerned about the drive. Will continue to discuss that. Specially in view of the worsening fibrosis. We did go for 6 minute walk test the patient did desaturate down to 87% with activity on room air. Did qualify for a conserving device at 2 L pulse. Will go ahead and request a concentrator and portable oxygen concentrator through [facility]. 10/26/2023 the patient is here for pulmonary follow-up visit. Overall the patient has been doing well. He is still coughing though. Moderate severity. Denies any shortness of breath. He was switched over to Remicade because he continued to have progression of the interstitial lung disease even on high doses of the mycophenolate. He seems to be tolerating medication well infusions are going well without any adverse effects. Will plan to repeat an x-ray in the next few months to see if there is any progression. Although his respiratory exam is indeed better this time. His cough is mainly in upper airway cough syndrome. Will try to treat him with Sudafed and also 1st generation antihistamines to see if we can settle down the cough. He is tried multiple other nsdv-szk-nayblwn medications in prescription medication without any significant improvement. Follow-up in 3 months. 12/08/2023 the patient is here for hospital follow-up visit. The patient was developing worsening respiratory symptoms and he was admitted to [facility]. He had a CT scan of the chest there which I do not have available but the patient described it as rito out. Likely significant diffuse pneumonitis. The patient initially tested negative for COVID on the nasal swab but he did have a bronchoscopy that were positive for COVID. Therefore he was treated for COVID pneumonitis and pneumonia. He was placed on oxygen. He is prednisone was increased from 7.5 2 higher amount. He was subsequently discharged on a prednisone taper. The patient is still having hard time breathing he is using oxygen. We did give him a portable oxygen concentrator to use after, but, the patient has had a hard time with it. Since that is working. We did call the DME so they can look at it. In the meantime we placed him on oxygen which did help. The patient is still working. He has hard time not working and therefore he needs to have the oxygen order to continue his working activities. He did have a chest x-ray today which I personally reviewed demonstrating still persistent elevation of the right hemidiaphragm although that is chronic interstitial changes which appeared to be chronic. And some degree of ill-defined opacities in the upper lung zones which is new but since be getting better. His baseline x-ray was not normal on the 1st place. He has been on Remicade. His next dose is sometime in January. Will follow-up in a couple weeks. The meantime he is going to increase the prednisone to 20 mg from his baseline 7.5 to try to decrease the inflammatory changes. 12/30/2023 the patient is here for a pulmonary follow-up visit. He is not f eeling any better. He did go up to 20 mg of prednisone. He continues on the Remicade. The patient did have a chest x-ray demonstrating interval worsening of the interstitial lung disease primarily the left hemithorax where he was primarily preserved. He does have an elevated right hemidiaphragm. He has been having issues with a portable oxygen concentrator. He did have to go up to 4 L pulse which is fine with activity. He can keep it at 2 L at rest. We talked about deep breathing exercises to make sure that he maximize his the respiratory effort and gas exchange. In view of the worsening pulmonary fibrosis will be a good candidate for Ofev. I will send a prescription to the pharmacy once we get approval. In the meantime pulmonary rehabilitation will be keep. The patient has been on 20 mg of prednisone without any significant changes in his respiratory capacity. Therefore, will start tapering down to his baseline dose 7.5 mg. Will follow-up in 4-6 weeks. 01/31/2024 the patient is here for a pulmonary follow-up visit. The patient still struggling with his breathing. The portable oxygen concentrator is not holding him. We did do a walking oximetry and he actually needs 4 L continuous with activity to maintain a pulse ox of 89% and above. Therefore he understands that we need to switch his POC to regular oxygen tanks. Will request a trial so that we can carry the oxygen little bit better. He is having hard time working because of his oxygen needs in his increased dyspnea. Therefore, will go ahead and repeat his chest x-ray and PFTs see the degree of severity. But my suspicion is that the patient is unlikely going to be able to work with this degree of disease. He recently did start the Ofev to try to minimize the progression of the fibrosis. I hope that he can tolerate the adverse effects which included diarrhea. He will continue on the prednisone although he is cutting down slowly down to 7.5 mg. he also continues on the Remicade as previously prescribed for the sarcoidosis before the severe COVID infection. At this point the patient appears to have progressive disease and unfortunately he is not developing any significant improvement as of yet. When he returns in a couple months after his PFTs and chest x-ray we can better assess his degree of disease and potential prognosis. In the meantime will request the [facility] to change his oxygen in order for him to have adequate oxygenation and improve gas exchange. 03/27/2024 the patient is here for a pulmonary follow-up visit. Since we last spoke the patient was able to decrease the prednisone to 7.5 mg daily. in addition to that he continues on Remicade. Recently he was started on Ofev. Seems to be tolerating it just some episodes of diarrhea but the patient is adjusting well. He did undergo a recent chest x-ray which still shows significant interstitial lung disease and decreased lung volumes. Pretty similar to previous. And his PFTs again demonstrating significant restriction with also severe diffusion impairment. The patient be a great candidate for pulmonary rehabilitation at this time. saw him in the program he may need to have malaise since he is still working full-time. At this point is conditions pretty advanced. She understands that. Will go ahead and refer him [place] to see if any other medication adjustment could be provided for him to see if any improvements can be facilitated. But also because if not if he has any evidence of any progression he would also be a good candidate for lung transplantation evaluation. Therefore will refer him to [facility] in order to start the process. He still is in the oxygen although the oxygen tanks are very heavy for him to carry. I had him doing repeat conserving device trial. On 4 L pulse he was able to maintain a pulse ox of 90% He rather use the POC because of better portability outside of the home. will go ahead and try again. I will send a script to the [facility] to switch him again to the POC at least he knows what he can expect since he had been on 1 before. will continue to monitor his progress and will await the referral evaluation in [place]. 05/29/2024 The patient is here for a pulmonary follow up visit. He did have his evaluation in [place] and he was very happy with that visit. She will be starting pulmonary rehab soon. Now he is on 40mg of Prednisone and still on remicade. He continues to use oxygen, Will need to stay on continuous oxygen. We requested an oxygen cart for him. He will f/u with [place] with PFts and CT chest. In the meantime, he continues with dyspnea, moderate in severity. Also has a cough. We will continue the current therapy. Will need PCP prophylaxis if continues on high doses of prednisone. 08/17/2024 the patient is here for a pulmonary follow-up visit. He feels a little better although he still has a hard time breathing. Still on the oxygen supplementation. He has been able to cut down to 3 L. he continues on 40 mg of prednisone. He also continues on the Remicade. He has been noticing worsening cough. Typically nonproductive in nature. Could be an upper airway cough syndrome now going to the spring. His respiratory exam is reassuring. I did speak to his pulmonary team in [place] and they would like him to decrease prednisone down to 20 mg. Therefore we did come up with a regimen for decrease the medicine at this time. Will cut by 5 mg initially until he reaches 30 mg and then will cut down by 2.5 mg every 5-7 days symptoms down to 20 mg. He will continue with the rest of the therapy. When he comes back we will do another 6 minute walk test to see me qualifies for a conserving device again. In the meantime he is going to be seen the pulmonary hypertension specialist in [facility] and also will be starting the process of lung transplantation. He still taking it all in. He is moving forward with his testing. 09/15/2024 the patient is here for a pulmonary follow-up visit. The patient does have increasing dyspnea today. His heart rate is a little bit more elevated. He has been working hard of pulmonary rehabilitation. He has been using his oxygen between 2-3 L/min via nasal cannula and is been affecting beneficial. He is also working closely with [facility] regarding lung transplantation. He does need his colonoscopy in although additional procedures in order to be able to be listed. Right now he is scheduled to have a colonoscopy in November. I did send a message to see if we can do that sooner. Will go ahead and bridging with Lovenox. He will have to stop the Coumadin 5 days before start the Lovenox and also on the Lovenox and work with the Coumadin Clinic to be able to adjust that appropriately. In the meantime the patient will also need a procedure in [place] will send them the information was we have that available. He will continue with current respiratory therapy. He continues to wean slowly the prednisone which is reassuring. Will go ahead and get blood work today in an EKG as well. He will follow-up in 2-3 months. He has any issues prior to that he will call for an earlier assessment. [facility] Medical History (Updated 09/17/24 @ 22:28 by Chaparro Da Silva MD) Pneumonia due to COVID-19 virus Pulmonary fibrosis ILD (interstitial lung disease) Bronchomalacia Right inguinal hernia Sarcoidosis Pulmonary nodules Obesity (BMI 30.0-34.9) Bleeding hemorrhoids Leg pain, right LFT elevation Hyperkalemia Glaucoma BPH (benign prostatic hyperplasia) Vitamin D deficiency Hypercholesterolemia Protein S deficiency DVT (deep venous thrombosis) Thrombocytopenia Surgical History History of right inguinal hernia repair Hx of lymph node biopsy Hx of colonoscopy History of umbilical hernia repair History of appendectomy History of sinus surgery Family History Mother No problems noted. Father Medical history unknown Daughter In good health Sister In good health Brother Lung cancer Social History Household Members: Significant Other Housing: House Are you a primary pet care attendant to a significant other at home: No Do you presently have visiting nurse or other home services: No Alcohol intake: current Alcohol intake frequency: holidays/special occasions only Comment: 3x a year 2 drinks Patient Tobacco Use Status: Never used Tobacco e-Cigarette/Vaping Use: Never Used Second Hand Smoke Exposure: No service: No Current occupational status: employed Cognitive needs: No Hearing needs: No Vision needs: Yes Review of Systems Const Denies chills, Denies fatigue, Denies fever(s), Denies weight gain and Denies weight loss Eyes Denies change in vision ENT Denies dizziness Card Denies chest pain, Denies leg edema, Denies lightheadedness, Denies palpitations, Denies dyspnea on exertion, Denies orthopnea and Denies other Resp Denies cough, Denies dyspnea on exertion and Denies wheezing GI Denies hematochezia and Denies change in stool character Musc Denies abnormal gait, Denies muscle weakness, Denies numbness, Denies radiating pain into limb and Denies tingling Skin/Breast Denies new lesions and Reports rash Neuro Denies abnormal gait, Denies dizziness, Denies numbness and Denies tingling Endo Denies fatigue and Denies palpitations Sina/Lymph Denies easy bruising and Denies lymphadenopathy Aller/Immun Denies wheezing Physical Exam Vital Signs: Last Vital Signs Pulse 110 H 09/15/24 09:32 BP 136/74 09/15/24 09:32 Pulse Ox 97 09/15/24 09:32 Oxygen Delivery Method Nasal Cannula 09/15/24 09:32 Oxygen Flow Rate 3 09/15/24 09:32 BMI result Body Mass Index 24.4 Const General: comfortable HEENT Head: Yes normocephalic Eyes General: appearance normal, both eyes and all related structures Neck Neck: Yes supple Chest Chest palpation & inspection: normal inspection of the chest Resp Effort & Inspection: normal respiratory effort Auscultation: diminished lung sounds Cardio Rate: regular rate Rhythm: regular rhythm Heart sounds: S1 normal heart sound present and S2 normal heart sound present GI Auscultation: normal bowel sounds Skin General skin exam: no rashes or lesions noted Extrem General: Yes no clubbing, cyanosis or edema Assessment & Plan Assessment & Plan (1) ILD (interstitial lung disease): Code(s): J84.9 - Interstitial pulmonary disease, unspecified Category: Medical (2) Chronic respiratory failure: Code(s): J96.10 - Chronic respiratory failure, unspecified whether with hypoxia or hypercapnia Category: Medical (3) Pulmonary fibrosis: Comment: 2011 Code(s): J84.10 - Pulmonary fibrosis, unspecified Category: Medical (4) Pulmonary nodules: Code(s): R91.8 - Other nonspecific abnormal finding of lung field Category: Medical (5) halfway systemic steroid user: Code(s): Z79.52 - terminal clerk (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 of systemic steroids Category: Medical (6) Bronchomalacia: Code(s): J98.09 - Other diseases of bronchus, not elsewhere classified Category: Medical (7) Pneumonia due to COVID-19 virus: Code(s): U07.1 - COVID-19; J12.82 - Pneumonia due to coronavirus disease 2019 Category: Medical (8) Sarcoidosis: Comment: dx 2011-follows w/Dr. Da Silva ([facility]) Code(s): D86.9 - Sarcoidosis, unspecified Category: Medical (9) Pre-op chest exam: Code(s): Z01.811 - Encounter for preprocedural respiratory examination Category: Medical Plan Proceed with colonoscopy and endoscopic procedures with anesthesia. Does have increased risk for perioperative pulmonary complications. Medically optimized from a pulmonary standpoin. Does use Coumadin for h/o DVT. Should stop the coumadin 5 days prior and bridge with Lovenox with the help of the coumadin clinic. oxygen 2l/pulse at rest and 4L/pulse with activity, requesting oxygen cart Prednisone 40mg-->35mg and will taper by 5mg every 5-7 days till 30mg. Then decrease by 2.5mg every 5-7 days till reaches 20mg continue Remicade continue OFEV due to he progression of the pulmonary fibrosis CPT with acapella valve Pulmonary rehab [facility] Pulmonary for evaluation, considering lung transplant evaluation Bloodwork EKG cough therapy F/U 3 months Orders: Orders Complete Blood Count Auto Diff 09/15/24 J84.9 - Interstitial pulmonary disease, unspecified, J96.10 - Chronic respiratory failure, unspecified whether with hypoxia or hypercapnia Basic Metabolic Panel 09/15/24 J84.9 - Interstitial pulmonary disease, unspecified, J96.10 - Chronic respiratory failure, unspecified whether with hypoxia or hypercapnia Erythrocyte Sedimentation Rate 09/15/24 J84.9 - Interstitial pulmonary disease, unspecified, J96.10 - Chronic respiratory failure, unspecified whether with hypoxia or hypercapnia ECG 12 lead EKG 09/15/24 J44.9 - Chronic obstructive pulmonary disease, unspecified, J84.9 - Interstitial pulmonary disease, unspecified, J96.10 - Chronic respiratory failure, unspecified whether with hypoxia or hypercapnia Troponin-I High Sensitivity 09/15/24 J84.9 - Interstitial pulmonary disease, unspecified, J96.10 - Chronic respiratory failure, unspecified whether with hypoxia or hypercapnia B Type Natriuretic Peptide 09/15/24 J84.9 - Interstitial pulmonary disease, unspecified, J96.10 - Chronic respiratory failure, unspecified whether with hypoxia or hypercapnia Venous Blood Gas 09/15/24 J84.9 - Interstitial pulmonary disease, unspecified, J96.10 - Chronic respiratory failure, unspecified whether with hypoxia or hypercapnia Coding Level of Care Code Est Pt Level 4 (89757) Complex EM visit Add On G2211 Diagnoses ILD (interstitial lung disease) J84.9 Chronic respiratory failure J96.10 Pulmonary fibrosis J84.10 Pulmonary nodules R91.8 terminal clerk systemic steroid user Z79.52 Bronchomalacia J98.09 Pneumonia due to COVID-19 virus U07.1; J12.82 Sarcoidosis D86.9 Pre-op chest exam Z01.811 Time Spent (min) 20
--- OUTSIDE RECORDS SUMMARY | 2024-09-15 09:49 | XMS_ITS | Patient Health Record ---
Author Organization [facility] Address [address] [place] [address] Care Team Providers Care Marketing Producer Name Role Phone Jaz Myers MD Primary Care Provider Mason Castro [phone] Allergies No Known Allergies Reason For Referral [...] Status Risk Notes Problem Colon cancer screening (208999950) Colon cancer screening (Z12.11) Active confirmed Problem 30849664 Rectal bleeding (K62.5) Active confirmed Problem 971297518 History of adenomatous polyp of colon (Z86.010) Active confirmed Problem Preprocedural examination (028891689007090) Preprocedural examination (Z01.818) Active confirmed Problem Diverticulosis of colon (236407480) Diverticulosis of colon (K57.30) Active confirmed Vital Signs Temperature 97.8 degrees Fahrenheit 09/06/2024 Blood pressure diastolic 01 mm Hg 09/06/2024 Height 64 in 09/06/2024 Blood pressure systolic 001 mm Hg 09/06/2024 Weight 136 lbs 09/06/2024 BMI 23.34 kg/m2 09/06/2024 Procedures Procedure Date Ordered Date Performed Result Body Sit e COLONOSCOPY 09/06/2024 N/A Encounters Encounter Location Date Provider Diagnosis [facility] [address] [place] [address] 09/06/2024 Mason Rock History of adenomato us polyp of colon Z86.010 ; Preprocedural examination Z01.818 and Colon cancer screening Z12.11 [facility] [address] [place] [address] 09/06/2024 Mason Rock Assessments Encounter Date Diagnosis [...] cleared for a potential lung transplant in [place]. As such I will plan to arrange this for him. He will need to stop Coumadin for 5 days prior to the procedure and obtain a prescription and instructions for Lovenox use from Dr. Calabrese. We will also need to obtain clearance and some records from both Dr. Da Silva and the lung transplant clinic at [facility]. Full consent has been obtained [...] cleared for a potential lung transplant in [place]. As such I will plan to arrange this for him. He will need to stop Coumadin for 5 days prior to the procedure and obtain a prescription and instructions for Lovenox use from Dr. Calabrese. We will also need to obtain clearance and some records from both Dr. Da Silva and the lung transplant clinic at [facility]. Full consent has been obtained [...] cleared for a potential lung transplant in [place]. As such I will plan to arrange this for him. He will need to stop Coumadin for 5 days prior to the procedure and obtain a prescription and instructions for Lovenox use from Dr. Calabrese. We will also need to obtain clearance and some records from both Dr. Da Silva and the lung transplant clinic at [facility]. Full consent has been obtained [...] Provider Name:Mason Rock , 11/27/2024 12:50:00 PM, [address] [place] [address] , [place], [place], [id number], Insurance Providers Payer Name Payer Address Payer Phone Subscriber Number Group Number Insured Name Patient Relationship to Insured Coverage Start Date Coverage End Date [facility] [employer] [facility] [address] [address] [place], [place] [id number] MAX OWENS Self - patient is the insured MEDICAID OF [facility] [address] [place] [address] [id number] MAX OWENS Self - patient is the insured Medical (General) History Medical History History ICD Code Denies [place],DM,CVA,Lung disease,renal dise ase Pulmonary Sarcoidosis--it has also [...] being followed by Dr. Da Silva at [facility] Pulmonary Department and the lung transplant center at [facility] in [place].He is currently on 2 L of nasal cannula 24 hours a day as of the August 2024 office visit. Surgical History Surgery Date(Month/Year) Hernia repair--umbilical 2017
--- OUTSIDE RECORDS SUMMARY | 2024-09-15 09:49 | XMS_ITS ---
Author Organization [facility] Address [address] [place] [address] Care Team Providers Care Ocean Biologist Name Role Phone Po Jaz ROBIN Primary Care Provider Mason Castro [phone] Allergies No Known Allergies REASON FOR VISIT [...] Status Risk Notes Problem Colon cancer screening (248870695) Colon cancer screening (Z12.11) Active confirmed Problem Preprocedural examination (380822411438359) Preprocedural examination (Z01.818) Active confirmed Vital Signs Temperature 97.8 degrees Fahrenheit 09/07/19 25 Blood pressure systolic 001 mm Hg 09/07/19 25 Blood pressure diastolic 01 mm Hg 025 Height 64 in 09/06/2024 Weight 136 lbs 09/06/2024 BMI 23.34 kg/m2 09/06/2024 Procedures Procedure Date Ordered Date Performed Result Body Sit e COLONOSCOPY 09/06/2024 N/A Encounters Encounter Location Date Provider Diagnosis [facility] [address] [place] [address] 09/06/2024 Mason Rock History of adenomato us [...] cleared for a potential lung transplant in [place]. As such I will plan to arrange this for him. He will need to stop Coumadin for 5 days prior to the procedure and obtain a prescription and instructions for Lovenox use from Dr. Calabrese. We will also need to obtain clearance and some records from both Dr. Da Silva and the lung transplant clinic at [facility]. Full consent has been obtained from [...] cleared for a potential lung transplant in [place]. As such I will plan to arrange this for him. He will need to stop Coumadin for 5 days prior to the procedure and obtain a prescription and instructions for Lovenox use from Dr. Calabrese. We will also need to obtain clearance and some records from both Dr. Da Silva and the lung transplant clinic at [facility]. Full consent has been obtained from [...] cleared for a potential lung transplant in [place]. As such I will plan to arrange this for him. He will need to stop Coumadin for 5 days prior to the procedure and obtain a prescription and instructions for Lovenox use from Dr. Calabrese. We will also need to obtain clearance and some records from both Dr. Da Silva and the lung transplant clinic at [facility]. Full consent has been obtained from [...] Provider Name:Mason Rock , 11/27/2024 12:50:00 PM, [address] , [place], [place], [phone], Progress Notes * NELLY OWENS EDOB:[birth year] (58 yo M)Acc No.[id number]:09/06/2024 Progress Notes Patient:NELLY KILGORE Provider:?Mason Rock MD :1965???Age:58 Y???Sex:Male Filemon e:09/06/2024 Address:[address] [place], [place] [phone] Pcp:Jaz Myers MD Subjective: * Chief Complaints: [...] care of both Dr. Da Silva at [facility] Pulmonary and the [facility] lung transplant center in [place]. 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 * Surgical History:?Hernia rep air--umbilical 2018 * Hospitalization/Major Diagno stic Procedure:?No Hospitalization History. [...] cleared for a potential lung transplant in [place]. As such I will plan to arrange this for him. He will need to stop Coumadin for 5 days prior to the procedure and obtain a prescription and instructions for Lovenox use from Dr. Calabrese. We will also need to obtain clearance and some records from both Dr. Da Silva and the lung transplant clinic at [facility]. Full consent has been obtained from [...] clearance from Dr. Da Silva and the [facility] Lung Transplant Clinic.Melba Isblel 09/06/2024 04:57:11 PM EDT > * Procedure Codes:?63359 DIAGN OSTIC [id number] COLORECTAL CA SCREEN DOC [id number] TOBACCO NON-XLTPL8030 BP SCR NOT PRFRM REC REASON [id number] RCMND FLW-UP 10 YRS DOCD * Follow Up:?prn * * Sign off status: Completed true * Provider:?Mason Rock MD Date:? 025 Generated for Bridgett gloria/Dipika/Eric on:?09/15/2024 09:48 AM EDT History and Physical Notes * [...] care of both Dr. Da Silva at [facility] Pulmonary and the [facility] lung transplant center in [place]. 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
--- OUTSIDE RECORDS SUMMARY | 2024-09-15 09:49 | XMS_ITS ---
Author Organization [facility] Address [address] [place] [phone] Care Team Providers Care Clinical Staff Pharmacist Name Role Phone Po Jaz ROBIN Primary Care Provider Mason Castro [phone] Encounters Encounter Location Date Provider Diagnosis [facility] [address] [facility] [address] [place] [address] 09/06/2024 Mason Rock Plan Of Treatment Next Appt Details Provider Name:Mason Rock , 11/27/2024 12:50:00 PM, [address] [place] [address] , [place], [place], [phone], Progress Notes * NELLY OWENS EDOB:[birth year] (58 yo M)Acc No.[id number]:09/06/2024 Patient:?NELLY OWENS :1965???Age:58 Y???Sex:Male Address:[address] [facility] [place], [address] * * Date:?
== END 2024-09-15 09:52 | disposition home or self-care (01) ==
LOC: HO.HPS 09:30
PROVIDERS: PCP Internal Medicine; Visit Provider Hospitalist
DX: J84.9 Interstitial pulmonary disease, unspecified (principal); J96.10 Chronic respiratory failure, unspecified whether with hypoxia or hypercapnia; J84.10 Pulmonary fibrosis, unspecified; R91.8 Other nonspecific abnormal finding of lung field; Z79.52 Long term (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 of systemic steroids; J98.09 Other diseases of bronchus, not elsewhere classified; U07.1 COVID-19; J12.82 Pneumonia due to coronavirus disease 2019; D86.9 Sarcoidosis, unspecified; Z01.811 Encounter for preprocedural respiratory examination
CPT/HCPCS: 99214; G2211

== ENCOUNTER → 2024-09-15 09:30 | Outpatient (REF) | payer OTHER, SELFPAY ==
--- NOTE | 2024-09-15 10:01 | ECG_ITS ---
Test Reason : COPD Blood Pressure : */* mmHG Vent. Rate : 103 BPM Atrial Rate : 103 BPM P-R Int : 130 ms QRS Dur : 78 ms QT Int : 310 ms P-R-T Axes : 64 33 47 degrees QTcB Int : 406 ms Sinus tachycardia Septal infarct , age undetermined Abnormal ECG When compared with ECG of 17-Aug-2022 15:19, No significant change was found Referred By: Chaparro Da Silva Electronically Signed By: BAMBI HARDY
[2024-09-15 10:10] LABS: MANUAL DIFF FLAG NO
[2024-09-15 10:17] LABS: VBG Base Excess 10.2 mmol/L; VBG HCO3 37 mmol/L (22-26); VBG pCO2 60 mmHg; VBG pH 7.39 (7.32-7.43); VBG pO2 35 mmHg
[2024-09-15 10:20] LABS: Venous Blood Gas Refer to POC result
--- OUTSIDE RECORDS SUMMARY | 2024-09-15 10:21 | XMS_ITS | Encounter Summary ---
Author Organization [facility] Address [address] [place] [address] Care Team Providers Care Bowl Turner Name Role Phone Jaz Myers MD Primary Care Provider Unavailabl e Reason for Visit * Reason Onset Date Comments Faxed Refill 10/14/2021 Methotrexate Encounter Details Date Type Department Care Team Description 10/14/2021 Refill Pulmonology - [place] 175 [facility] [address] [place] [phone] eDvyn Jay MD [address] [place] [address] Faxed Refill (Methotrexate) Social History [...] N/A Patients current insurance carrier is: Payor: [employer] FFS / Plan: [facility] / Product Type: MEDICAID RISK Patient request a 90 day prescription documented in this encounter Plan of Treatment Not on file documented as of this encounter Visit Diagnoses Diagnosis Interstitial lung disease (HCC) Postinflammatory pulmonary fibrosis documented in this encounter Care Teams Bowl Turner Relationship Specialty Start Date End Date Jaz Myers MD PCP - General Internal Medicine 03/23/17 documented as of this encounter
--- OUTSIDE RECORDS SUMMARY | 2024-09-15 10:21 | XMS_ITS | Clinical Summary ---
Author Organization [facility] Address [address] [place] [address] Care Team Providers Care Compensation Programs Manager Name Role Phone Jaz Myers MD [...] 05/10/2024 INFLUENZA (Season Ended) 2025 Care Teams Compensation Programs Manager Relationship Specialty Start Date End Date Jaz Myers MD PCP - General Internal Medicine 03/23/17
--- OUTSIDE RECORDS SUMMARY | 2024-09-15 10:21 | XMS_ITS | Encounter Summary ---
Author Organization [facility] Address [address] [place] [address] Care Team Providers Care Needle Control Cheniller Name Role Phone Jaz Myers MD Primary Care Provider Unavailabl e Reason for Visit * Reason Comments E-prescribe Rx Request Encounter Details Date Type Department Care Team Description 06/08/2020 Refill Pulmonology - [place] 175 [facility] [address] [place] [phone] Devyn Jay MD [address] [place] [address] E-prescribe Rx Request Social History [...] Cough documented in this encounter Care Teams Needle Control Cheniller Relationship Specialty Start Date End Date Jaz Myers MD PCP - General Internal Medicine 03/23/17 documented as of this encounter
--- OUTSIDE RECORDS SUMMARY | 2024-09-15 10:21 | XMS_ITS | Encounter Summary ---
Author Organization [facility] Address [address] [place] [address] Care Team Providers Care Gyroscope Technician Name Role Phone Jaz Myers MD Primary Care Provider Unavailabl e Reason for Visit * Reason Onset Date Comments Faxed Refill 12/02/2021 Encounter Details Date Type Department Care Team Description 12/02/2021 Refill Pulmonology - [place] [address] [address] Devyn Jay MD [address] [place] [address] Faxed Refill Social History Tobacco [...] fibrosis documented in this encounter Care Teams Gyroscope Technician Relationship Specialty Start Date End Date Jaz Myers MD PCP - General Internal Medicine 03/23/17 documented as of this encounter
[2024-09-15 10:37] LABS: Basophils Percent Auto 0.3 % (0-2); Eosinophils Absolute Auto 0.1 X10*3/uL (0.0-0.4); Eosinophils Percent Auto 0.5 % (0-4); Hematocrit 43.1 % (42.0-52.0); Hemoglobin 14.5 g/dl (14.0-18.0); Imm Gran Abs Auto 0.07 X10*3/uL (0.00-0.03); Imm Gran Pct Auto 0.7 % (0.0-0.4); Lymphocytes Percent Auto 19.2 % (20-40); Mean Corpuscular HGB Conc 33.6 g/dl (31.0-36.0); Mean Corpuscular Hemoglobin 30.7 pg (27.0-33.0); Mean Corpuscular Volume 91.3 fL (80.0-98.0); Mean Platelet Volume 10.7 fL (9.4-12.4); Monocytes Absolute Auto 0.8 X10*3/uL (0.1-1.2); Monocytes Percent Auto 7.7 % (2-11); Neutrophils Absolute Auto 7.6 x10*3/uL (2.0-8.3); Neutrophils Percent Auto 71.6 % (45-73); Platelet Count 163 X10*3/uL (160-400); Red Blood Count 4.72 X10*6/uL (4.60-5.80); Red Cell Distribution Width 13.7 % (11.0-16.0); White Blood Count 10.6 X10*3/uL (4.8-10.8)
[2024-09-15 11:02] LABS: Anion Gap 13 (12-20); Blood Urea Nitrogen 18 mg/dL (9-16); Calcium 9.4 mg/dL (8.4-10.2); Carbon Dioxide 33 mmol/L (22-29); Chloride 102 mmol/L (96-108); Estimated Glomerular Filt Rate > 60; Glucose Random 98 mg/dL (60-115); Potassium 4.6 mmol/L (3.3-5.1); Sodium 143 mmol/L (135-145)
[2024-09-15 11:10] LABS: B Type Natriuretic Peptide 30 pg/mL (<100)
[2024-09-15 11:13] LABS: Troponin-I High Sensitivity < 2.7 ng/L (<3.5-35.0)
[2024-09-15 11:16] LABS: Erythrocyte Sedimentation Rate 6 MM/HR (0-15)
== END ==
LOC: HO.CARD 09:30
PROVIDERS: PCP Internal Medicine; Visit Provider Hospitalist
DX: J84.9 Interstitial pulmonary disease, unspecified (principal); J84.10 Pulmonary fibrosis, unspecified; D86.9 Sarcoidosis, unspecified; U07.1 COVID-19; J12.82 Pneumonia due to coronavirus disease 2019; J96.10 Chronic respiratory failure, unspecified whether with hypoxia or hypercapnia; J44.9 Chronic obstructive pulmonary disease, unspecified
CPT/HCPCS: 36415; 80048; 82803; 83880; 84484; 85025; 85652; 93005; 99212

== ENCOUNTER → 2024-09-15 10:01 | Outpatient (BNV) | payer OTHER, SELFPAY | PROVIDERS: PCP Internal Medicine; Visit Provider Internal Medicine | DX: R00.0 Tachycardia, unspecified (principal) | CPT/HCPCS: 93010 ==

== ENCOUNTER 2024-09-19 06:45 | Outpatient (REF) | payer OTHER, SELFPAY ==
--- OUTSIDE RECORDS SUMMARY | 2024-09-19 06:47 | XMS_ITS | Encounter Summary ---
Author Organization [facility] Address [address] [place] [address] Care Team Providers Care Commercial Loan Analyst Name Role Phone Jaz Myers MD Primary Care Provider Unavailabl e Reason for Visit * Reason Comments E-prescribe Rx Request Encounter Details Date Type Department Care Team Description 06/08/2020 Refill Pulmonology - [place] 175 [facility] [address] [place] [address] Devyn Jay MD [address] [place] [address] E-prescribe Rx Request Social History [...] Cough documented in this encounter Care Teams Commercial Loan Analyst Relationship Specialty Start Date End Date Jaz Myers MD PCP - General Internal Medicine 03/23/17 documented as of this encounter
--- OUTSIDE RECORDS SUMMARY | 2024-09-19 06:48 | XMS_ITS ---
Author Organization [facility] Address [address] [place] [address] Care Team Providers Care Area Operations Director Name Role Phone Po Jaz ROBIN Primary Care Provider Mason Castro [phone] Allergies No Known Allergies REASON FOR VISIT [...] screening (Z12.11) Active confirmed Problem Preprocedural examination (006356073436947) Preprocedural examination (Z01.818) Active confirmed Vital Signs Temperature 97.8 degrees Fahrenheit 09/07/19 25 Blood pressure systolic 001 mm Hg 09/07/19 25 Blood pressure diastolic 01 mm Hg 025 Height 64 in 09/06/2024 Weight 136 lbs 09/06/2024 BMI 23.34 kg/m2 09/06/2024 Procedures Procedure Date Ordered Date Performed Result Body Sit e COLONOSCOPY 09/06/2024 N/A Encounters Encounter Location Date Provider Diagnosis [facility] [address] [place] [address] 09/06/2024 Mason Rock History of adenomato us [...] cleared for a potential lung transplant in [place]. As such I will plan to arrange this for him. He will need to stop Coumadin for 5 days prior to the procedure and obtain a prescription and instructions for Lovenox use from Dr. Calabrese. We will also need to obtain clearance and some records from both Dr. Da Silva and the lung transplant clinic at [facility]. Full consent has been obtained from Nelly [...] cleared for a potential lung transplant in [place]. As such I will plan to arrange this for him. He will need to stop Coumadin for 5 days prior to the procedure and obtain a prescription and instructions for Lovenox use from Dr. Calabrese. We will also need to obtain clearance and some records from both Dr. Da Silva and the lung transplant clinic at [facility]. Full consent has been obtained from Nelly [...] cleared for a potential lung transplant in [place]. As such I will plan to arrange this for him. He will need to stop Coumadin for 5 days prior to the procedure and obtain a prescription and instructions for Lovenox use from Dr. Calabrese. We will also need to obtain clearance and some records from both Dr. Da Silva and the lung transplant clinic at [facility]. Full consent has been obtained from Nelly [...] Provider Name:Mason Rock , 11/27/2024 12:50:00 PM, [address] [place] [address], [phone], Progress Notes * NELLY OWENS EDOB:[birth year] (58 yo M)Acc No.[id number]:09/06/2024 Progress Notes Patient:NELLY KILGORE Provider:?Mason Rock MD :1965???Age:58 Y???Sex:Male Filemon e:09/06/2024 Address:[address] [place], [place] [phone] Pcp:Jaz Myers MD Subjective: * Chief Complaints: [...] care of both Dr. Da Silva at [facility] Pulmonary and the [facility] lung transplant center in [place]. Nelly has now become oxygen dependent 24 [...] cleared for a potential lung transplant in [place]. As such I will plan to arrange this for him. He will need to stop Coumadin for 5 days prior to the procedure and obtain a prescription and instructions for Lovenox use from Dr. Calabrese. We will also need to obtain clearance and some records from both Dr. Da Silva and the lung transplant clinic at [facility]. Full consent has been obtained from Nelly [...] clearance from Dr. Da Silva and the [facility] Lung Transplant Clinic.Telma Isbelln 09/06/2024 04:57:11 PM EDT > * Procedure Codes:?23108 DIAGN OSTIC [id number] COLORECTAL CA SCREEN DOC [id number] TOBACCO NON-JVUGJ2592 BP SCR NOT PRFRM REC REASON [id number] RCMND FLW-UP 10 YRS DOCD * Follow Up:?prn * * Sign off status: Completed true * Provider:?Mason Rock MD Date:? 025 Generated for Bridgett gloria/Dipika/Carolinaitting on:?09/19/2024 06:47 AM EDT History and Physical Notes * [...] care of both Dr. Da Silva at [facility] Pulmonary and the [facility] lung transplant center in [place]. 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
--- OUTSIDE RECORDS SUMMARY | 2024-09-19 06:48 | XMS_ITS | Encounter Summary ---
Author Organization [facility] Address [address] [place] [address] Care Team Providers Care Cash Analyst Name Role Phone Jaz Myers MD Primary Care Provider Unavailabl e Encounter Details Date Type Department Care Team Description 07/19/2017 Transfer Records Medical Records [address] [place] [address] Abstract, Provider Social History Tobacco Use Types [...] on filedocumented in this encounter Care Teams Cash Analyst Relationship Specialty Start Date End Date Jaz Myers MD PCP - General Internal Medicine 03/23/17 documented as of this encounter
--- OUTSIDE RECORDS SUMMARY | 2024-09-19 06:48 | XMS_ITS | Encounter Summary ---
Author Organization [facility] Address [address] [place] [address] Care Team Providers Care Director Career Services Name Role Phone Jaz Myers MD Primary Care Provider Unavailabl e Reason for Visit * Reason Onset Date Comments Faxed Refill 12/02/2021 Encounter Details Date Type Department Care Team Description 12/02/2021 Refill Pulmonology - [place] [address] [address] Devyn Jay MD [address] [place] [address] Faxed Refill Social History Tobacco [...] fibrosis documented in this encounter Care Teams Director Career Services Relationship Specialty Start Date End Date Jaz Myers MD PCP - General Internal Medicine 03/23/17 documented as of this encounter
--- OUTSIDE RECORDS SUMMARY | 2024-09-19 06:48 | XMS_ITS ---
Author Organization [facility] Address [address] [facility] [address] [place] [address] Care Team Providers Care Stand Up Comedian Name Role Phone Po Jaz ROBIN Primary Care Provider Mason Castro [phone] REASON FOR VISIT Needs Pulmonary clearance for colonoscopy Encounters Encounter Location Date Provider Diagnosis [facility] [address] [facility] [address] [place] [address] 09/06/2024 Mason Rock Plan Of Treatment Next Appt Details Provider Name:Mason Rock , 11/27/2024 12:50:00 PM, [address] [place] [address] , [place], [place], [phone], Progress Notes * NELLY OWENS EDOB:[birth year] (58 yo M)Acc No.[id number]:09/06/2024 Patient:?NELLY OWENS :1965???Age:58 Y???Sex:Male Address:[address] [place], [address] * * Date:?
--- OUTSIDE RECORDS SUMMARY | 2024-09-19 06:48 | XMS_ITS | Patient Health Record ---
Author Organization [facility] Address [address] [place] [address] Care Team Providers Care Handyperson Name Role Phone Jaz Myers MD Primary Care Provider Mason Castro [phone] Allergies No Known Allergies Reason For Referral [...] Status Risk Notes Problem Colon cancer screening (098608013) Colon cancer screening (Z12.11) Active confirmed Problem 53152881 Rectal bleeding (K62.5) Active confirmed Problem 969511870 History of adenomatous polyp of colon (Z86.010) Active confirmed Problem Preprocedural examination (375625096352183) Preprocedural examination (Z01.818) Active confirmed Problem Diverticulosis of colon (551176874) Diverticulosis of colon (K57.30) Active confirmed Vital Signs Temperature 97.8 degrees Fahrenheit 09/06/2024 Blood pressure diastolic 01 mm Hg 09/06/2024 Height 64 in 09/06/2024 Blood pressure systolic 001 mm Hg 09/06/2024 Weight 136 lbs 09/06/2024 BMI 23.34 kg/m2 09/06/2024 Procedures Procedure Date Ordered Date Performed Result Body Sit e COLONOSCOPY 09/06/2024 N/A Encounters Encounter Location Date Provider Diagnosis [facility] [address] [place] [address] 09/06/2024 Mason Rock History of adenomato us polyp of colon Z86.010 ; Preprocedural examination Z01.818 and Colon cancer screening Z12.11 [facility] [address] [place] [address] 09/06/2024 Mason Rock Assessments Encounter Date Diagnosis [...] cleared for a potential lung transplant in [place]. As such I will plan to arrange this for him. He will need to stop Coumadin for 5 days prior to the procedure and obtain a prescription and instructions for Lovenox use from Dr. Calabrese. We will also need to obtain clearance and some records from both Dr. Da Silva and the lung transplant clinic at [facility]. Full consent has been obtained [...] cleared for a potential lung transplant in [place]. As such I will plan to arrange this for him. He will need to stop Coumadin for 5 days prior to the procedure and obtain a prescription and instructions for Lovenox use from Dr. Calabrese. We will also need to obtain clearance and some records from both Dr. Da Silva and the lung transplant clinic at [facility]. Full consent has been obtained [...] cleared for a potential lung transplant in [place]. As such I will plan to arrange this for him. He will need to stop Coumadin for 5 days prior to the procedure and obtain a prescription and instructions for Lovenox use from Dr. Calabrese. We will also need to obtain clearance and some records from both Dr. Da Silva and the lung transplant clinic at [facility]. Full consent has been obtained [...] Provider Name:Mason Rock , 11/27/2024 12:50:00 PM, [address] [place] [address] , [place], [place], [phone], Insurance Providers Payer Name Payer Address Payer Phone Subscriber Number Group Number Insured Name Patient Relationship to Insured Coverage Start Date Coverage End Date [facility] [address] [address] [place], [place] [id number] MAX OWENS Self - patient is the insured MEDICAID OF [facility] [address] [place] [address] [id number] MAX OWENS Self - patient is the insured Medical (General) History Medical History History ICD Code Denies [place],DM,CVA,Lung disease,renal dise ase Pulmonary Sarcoidosis--it has also [...] Department and the lung transplant center at [facility] in [place].He is currently on 2 L of nasal cannula 24 hours a day as of the August 2024 office visit. Surgical History Surgery Date(Month/Year) Hernia repair--umbilical 2017
--- OUTSIDE RECORDS SUMMARY | 2024-09-19 06:48 | XMS_ITS | Encounter Summary ---
Author Organization [facility] Address [address] [place] [address] Care Team Providers Care Grain Grader Name Role Phone Jaz Myers MD Primary Care Provider Unavailabl e Encounter Details Date Type Department Care Team Description 04/18/2021 Orders Only Pulmonology - [place] 175 [facility] [address] [place] [address] Devyn Jay MD [address] [place] [address] Sarcoidosis Social History Tobacco Use [...] Sarcoidosis documented in this encounter Care Teams Grain Grader Relationship Specialty Start Date End Date Jaz Myers MD PCP - General Internal Medicine 03/23/17 documented as of this encounter
[2024-09-19 07:11] LABS: MANUAL DIFF FLAG NO
[2024-09-19 07:35] LABS: Basophils Percent Auto 0.2 % (0-2); Eosinophils Absolute Auto 0.1 X10*3/uL (0.0-0.4); Eosinophils Percent Auto 0.8 % (0-4); Hematocrit 47.3 % (42.0-52.0); Hemoglobin 15.5 g/dl (14.0-18.0); Imm Gran Abs Auto 0.05 X10*3/uL (0.00-0.03); Imm Gran Pct Auto 0.5 % (0.0-0.4); Lymphocytes Absolute Auto 2.7 X10*3/uL (1.2-4.9); Mean Corpuscular HGB Conc 32.8 g/dl (31.0-36.0); Mean Corpuscular Hemoglobin 29.9 pg (27.0-33.0); Mean Corpuscular Volume 91.3 fL (80.0-98.0); Mean Platelet Volume 10.6 fL (9.4-12.4); Monocytes Absolute Auto 0.7 X10*3/uL (0.1-1.2); Monocytes Percent Auto 7.1 % (2-11); Neutrophils Absolute Auto 6.8 x10*3/uL (2.0-8.3); Neutrophils Percent Auto 65.4 % (45-73); Platelet Count 161 X10*3/uL (160-400); Red Blood Count 5.18 X10*6/uL (4.60-5.80); Red Cell Distribution Width 13.5 % (11.0-16.0); White Blood Count 10.4 X10*3/uL (4.8-10.8)
[2024-09-19 07:42] LABS: Estimated Average Glucose 131 mg/dL; Hemoglobin A1C 175.9909 umol/L; Hemoglobin A1c % 6.2 % (<6.0); Total Hemoglobin (HGBA1C) 4024.3918 umol/L
[2024-09-19 08:13] LABS: Alanine Aminotransferase 33 U/L (0-40); Albumin Level 3.9 g/dL (3.5-5.0); Alkaline Phosphatase 66 U/L (39-117); Anion Gap 16 (12-20); Aspartate Amino Transferase 46 U/L (5-37); Bilirubin Total 1.6 mg/dL (0.0-1.0); Blood Urea Nitrogen 13 mg/dL (9-16); C Reactive Protein 0.59 mg/dL (< or = 0.50); Calcium 9.1 mg/dL (8.4-10.2); Carbon Dioxide 29 mmol/L (22-29); Chloride 99 mmol/L (96-108); Cholesterol 225 mg/dL (<200); Estimated Glomerular Filt Rate > 60; Glucose Random 88 mg/dL (60-115); HDL Cholesterol 64 mg/dL (>40); LDL Cholesterol Calculated 118 mg/dL (<100); Potassium 5.1 mmol/L (3.3-5.1); Sodium 139 mmol/L (135-145); Total Protein 7.5 g/dL (6.5-8.0); Triglycerides 218 mg/dL (<150)
[2024-09-19 08:27] LABS: Free T4 (Free Thyroxine) 0.95 ng/dL (0.71-1.85); Thyroid Stimulating Hormone 0.85 uIU/mL (0.32-4.0)
[2024-09-19 08:28] LABS: Erythrocyte Sedimentation Rate 7 MM/HR (0-15)
[2024-09-19 08:42] LABS: Prostate Specific Antigen Scr 1.51 ng/mL (<0.05-4.0)
[2024-09-19 09:46] LABS: Vitamin B12 277 pg/mL (200-900)
== END 2024-09-19 06:46 | disposition home or self-care (01) ==
LOC: HO.LAB 06:45
PROVIDERS: PCP Internal Medicine; Visit Provider Internal Medicine
DX: R73.02 Impaired glucose tolerance (oral) (principal); E78.00 Pure hypercholesterolemia, unspecified
CPT/HCPCS: 36415; 80053; 80061; 82607; 82746; 83036; 84153; 84439; 84443; 85025; 85652; 86140

== ENCOUNTER 2024-09-28 08:17 | Outpatient (AMB) | payer OTHER, SELFPAY ==
--- OUTSIDE RECORDS SUMMARY | 2024-09-28 08:28 | XMS_ITS | Encounter Summary ---
Author Organization [facility] Address [address] [place] [address] Care Team Providers Care Drill Presser Name Role Phone Jaz Myers MD Primary Care Provider Unavailabl e Reason for Visit * Reason Comments E-prescribe Rx Request Encounter Details Date Type Department Care Team Description 07/06/2020 Refill Pulmonology - [place] 175 [facility] [address] [place] [address] Devyn Jay MD 175 [place] [address] E-prescribe Rx Request Social History [...] Cough documented in this encounter Care Teams Drill Presser Relationship Specialty Start Date End Date Jaz Myers MD PCP - General Internal Medicine 03/23/17 documented as of this encounter
--- OUTSIDE RECORDS SUMMARY | 2024-09-28 08:28 | XMS_ITS | Encounter Summary ---
Author Organization [facility] Address [address] [place] [address] Care Team Providers Care Gelatin Maker Utility Name Role Phone Jaz Myers MD Primary Care Provider Unavailabl e Reason for Visit * Reason Comments E-prescribe Rx Request Encounter Details Date Type Department Care Team Description 06/08/2020 Refill Pulmonology - [place] 175 [facility] [address] [place] [address] Devyn Jay MD [address] [place] [address] E-prescribe Rx Request Social History [...] Cough documented in this encounter Care Teams Gelatin Maker Utility Relationship Specialty Start Date End Date Jaz Myers MD PCP - General Internal Medicine 03/23/17 documented as of this encounter
--- OUTSIDE RECORDS SUMMARY | 2024-09-28 08:28 | XMS_ITS | Encounter Summary ---
Author Organization [facility] Address [address] [place] [address] Care Team Providers Care Information Systems Director Name Role Phone Jaz Myers MD Primary Care Provider Unavailabl e Reason for Visit * Reason Onset Date Comments Faxed Refill 10/14/2021 Methotrexate Encounter Details Date Type Department Care Team Description 10/14/2021 Refill Pulmonology - [place] 175 [facility] [address] [place] [address] Devyn Jay MD [address] [place] [address] Faxed Refill (Methotrexate) Social History [...] N/A Patients current insurance carrier is: Payor: [employer] FFS / [facility] / Product Type: MEDICAID RISK Patient request a 90 day prescription documented in this encounter Plan of Treatment Not on file documented as of this encounter Visit Diagnoses Diagnosis Interstitial lung disease (HCC) Postinflammatory pulmonary fibrosis documented in this encounter Care Teams Information Systems Director Relationship Specialty Start Date End Date Jaz Myers MD PCP - General Internal Medicine 03/23/17 documented as of this encounter
--- OUTSIDE RECORDS SUMMARY | 2024-09-28 08:28 | XMS_ITS | Encounter Summary ---
Author Organization [facility] Address [address] [place] [address] Care Team Providers Care Manager Document Control Name Role Phone Jaz Myers MD Primary Care Provider Unavailabl e Reason for Visit * Reason Comments E-prescribe Rx Request Encounter Details Date Type Department Care Team Description 05/09/2020 Refill Pulmonology - [place] 175 [facility] [address] [place] [address] Devyn Jay MD [address] [place] [address] E-prescribe Rx Request Social History [...] Cough documented in this encounter Care Teams Manager Document Control Relationship Specialty Start Date End Date Jaz Myers MD PCP - General Internal Medicine 11/14/17 documented as of this encounter
--- OUTSIDE RECORDS SUMMARY | 2024-09-28 08:28 | XMS_ITS | Patient Health Record ---
Author Organization [facility] Address [address] [place] [address] Care Team Providers Care Airborne Missions Systems Name Role Phone Jaz Myers MD Primary Care Provider Mason Castro [phone] Allergies No Known Allergies Reason For Referral [...] Colon cancer screening (Z12.11) Active confirmed Problem 34295188 Rectal bleeding (K62.5) Active confirmed Problem 302813006 History of adenomatous polyp of colon (Z86.010) Active confirmed Problem Preprocedural examination (065628355537453) Preprocedural examination (Z01.818) Active confirmed Problem Diverticulosis of colon (057567883) Diverticulosis of colon (K57.30) Active confirmed Vital Signs Temperature 97.8 degrees Fahrenheit 09/06/2024 Blood pressure diastolic 01 mm Hg 09/06/2024 Height 64 in 09/06/2024 Blood pressure systolic 001 mm Hg 09/06/2024 Weight 136 lbs 09/06/2024 BMI 23.34 kg/m2 09/06/2024 Procedures Procedure Date Ordered Date Performed Result Body Sit e COLONOSCOPY 09/06/2024 N/A Encounters Encounter Location Date Provider Diagnosis [facility] [address] [place] [address] 09/06/2024 Mason Rock History of adenomato us polyp of colon Z86.010 ; Preprocedural examination Z01.818 and Colon cancer screening Z12.11 [facility] [address] [place] [address] 09/06/2024 Mason Rock Assessments Encounter Date Diagnosis [...] cleared for a potential lung transplant in [place]. As such I will plan to arrange this for him. He will need to stop Coumadin for 5 days prior to the procedure and obtain a prescription and instructions for Lovenox use from Dr. Calabrese. We will also need to obtain clearance and some records from both Dr. Da Silva and the lung transplant clinic at [facility]. Full consent has been obtained from Max [...] cleared for a potential lung transplant in [place]. As such I will plan to arrange this for him. He will need to stop Coumadin for 5 days prior to the procedure and obtain a prescription and instructions for Lovenox use from Dr. Calabrese. We will also need to obtain clearance and some records from both Dr. Da Silva and the lung transplant clinic at [facility]. Full consent has been obtained from Max [...] cleared for a potential lung transplant in [place]. As such I will plan to arrange this for him. He will need to stop Coumadin for 5 days prior to the procedure and obtain a prescription and instructions for Lovenox use from Dr. Calabrese. We will also need to obtain clearance and some records from both Dr. Da Silva and the lung transplant clinic at [facility]. Full consent has been obtained from Max [...] Provider Name:Mason Rock , 11/27/2024 12:50:00 PM, [address] [place] [address] , [place], [place], [phone], Insurance Providers Payer Name Payer Address Payer Phone Subscriber Number Group Number Insured Name Patient Relationship to Insured Coverage Start Date Coverage End Date [facility] [employer] [facility] [address] [address] [place], [place] [phone] [id number] MAX OWENS Self - patient is the insured MEDICAID OF [employer] [address] [place] [address] [id number] MAX OWENS Self - patient is the insured Medical (General) History Medical History History ICD Code Denies SD,DM,CVA,Lung disease,renal dise ase Pulmonary Sarcoidosis--it has also [...] being followed by Dr. Da Silva at [facility] Pulmonary Department and the lung transplant center at [facility] in [place].He is currently on 2 L of nasal cannula 24 hours a day as of the August 2024 office visit. Surgical History Surgery Date(Month/Year) Hernia repair--umbilical 2017
--- OUTSIDE RECORDS SUMMARY | 2024-09-28 08:28 | XMS_ITS | Encounter Summary ---
Author Organization [facility] Address [address] [place] [address] Care Team Providers Care Library Attendant Name Role Phone Jaz Myers MD Primary Care Provider Unavailabl e Encounter Details Date Type Department Care Team Description 07/19/2017 Transfer Records Medical Records [address] [place] [address] Abstract, Provider Social History Tobacco Use Types [...] on filedocumented in this encounter Care Teams Library Attendant Relationship Specialty Start Date End Date Jaz Myers MD PCP - General Internal Medicine 03/23/17 documented as of this encounter
[2024-09-28 08:29] LABS: Prothrombin Time Whole Bld POC 37.9 sec (11.1-13.5); ~PT, ~INR - Anti Coag Clinic 3.2 (0.9-1.1)
--- OUTSIDE RECORDS SUMMARY | 2024-09-28 08:29 | XMS_ITS | Encounter Summary ---
Author Organization [facility] Address [address] [place] [address] Care Team Providers Care Butter Fat Tester Name Role Phone Jaz Myers MD Primary Care Provider Unavailabl e Reason for Visit * Reason Comments E-prescribe Rx Request Encounter Details Date Type Department Care Team Description 05/23/2021 Refill Pulmonology - [place] 175 [facility] [address] [place] [address] Devyn Jay MD [address] [place] [address] E-prescribe Rx Request Social History [...] NO Patients current insurance carrier is: Payor: [employer] FFS / Plan: [facility] / Product Type: MEDICAID RISK documented in this encounter Plan of Treatment Not on file documented as of this encounter Visit Diagnoses Diagnosis Sarcoidosis documented in this encounter Care Teams Butter Fat Tester Relationship Specialty Start Date End Date Jaz Myers MD PCP - General Internal Medicine 03/23/17 documented as of this encounter
--- OUTSIDE RECORDS SUMMARY | 2024-09-28 08:29 | XMS_ITS ---
Author Organization [facility] Address [address] [facility] [address] [place] [address] Care Team Providers Care Machine Accountant Name Role Phone Po Jaz ROBIN Primary Care Provider Mason Castro [phone] REASON FOR VISIT Needs Pulmonary clearance for colonoscopy Encounters Encounter Location Date Provider Diagnosis [facility] [address] [facility] [address] [place] [address] 09/06/2024 Mason Rock Plan Of Treatment Next Appt Details Provider Name:Mason Rock , 11/27/2024 12:50:00 PM, [address] [place] [address] , [place], [place], [phone], Progress Notes * NELLY OWENS EDOB:[birth year] (58 yo M)Acc No.[id number]:09/06/2024 Patient:?NELLY OWENS :1965???Age:58 Y???Sex:Male Address:[address] [place], [address] * * Date:?
--- OUTSIDE RECORDS SUMMARY | 2024-09-28 08:29 | XMS_ITS | Encounter Summary ---
Author Organization [facility] Address [address] [place] [address] Care Team Providers Care Filer And Sander Name Role Phone Jaz Myers MD Primary Care Provider Unavailabl e Encounter Details Date Type Department Care Team Description 04/18/2021 Orders Only Pulmonology - [place] 175 [facility] [address] [place] [address] Devyn Jay MD [address] [place] [address] Sarcoidosis Social History Tobacco Use [...] Sarcoidosis documented in this encounter Care Teams Filer And Sander Relationship Specialty Start Date End Date Jaz Myers MD PCP - General Internal Medicine 03/23/17 documented as of this encounter
--- OUTSIDE RECORDS SUMMARY | 2024-09-28 08:29 | XMS_ITS | Encounter Summary ---
Author Organization [facility] Address [address] [place] [address] Care Team Providers Care Erisa Attorney Name Role Phone Jaz Myers MD Primary Care Provider Unavailabl e Reason for Visit * Reason Comments E-prescribe Rx Request Encounter Details Date Type Department Care Team Description 08/28/2021 Refill Pulmonology - [place] 175 [facility] [address] [place] [address] Devyn Jay MD [address] [place] [address] E-prescribe Rx Request Social History [...] THE PATIENT'S LAST APPOINTMENT IN ADULT MEDICINE? [id number] WHEN WAS THE LAST TIME THE PATIENT [...] N/A Patients current insurance carrier is: Payor: [employer] FFS / Plan: [employer] / Product Type: MEDICAID RISK documented in this encounter Plan of Treatment Not on file documented as of this encounter Visit Diagnoses Diagnosis Sarcoidosis documented in this encounter Care Teams Erisa Attorney Relationship Specialty Start Date End Date Jaz Myers MD PCP - General Internal Medicine 03/23/17 documented as of this encounter
--- OUTSIDE RECORDS SUMMARY | 2024-09-28 08:29 | XMS_ITS ---
Author Organization [facility] Address [address] [place] [address] Care Team Providers Care Restaurant Line Server Name Role Phone Po Jaz ROBIN Primary Care Provider Mason Castro [phone] Allergies No Known Allergies REASON FOR VISIT [...] screening (Z12.11) Active confirmed Problem Preprocedural examination (413482843055934) Preprocedural examination (Z01.818) Active confirmed Vital Signs Temperature 97.8 degrees Fahrenheit 09/07/19 25 Blood pressure systolic 001 mm Hg 09/07/19 25 Blood pressure diastolic 01 mm Hg 025 Height 64 in 09/06/2024 Weight 136 lbs 09/06/2024 BMI 23.34 kg/m2 09/06/2024 Procedures Procedure Date Ordered Date Performed Result Body Sit e COLONOSCOPY 09/06/2024 N/A Encounters Encounter Location Date Provider Diagnosis [facility] [address] [place] [address] 09/06/2024 Mason Rock History of adenomato us [...] cleared for a potential lung transplant in [place]. As such I will plan to arrange this for him. He will need to stop Coumadin for 5 days prior to the procedure and obtain a prescription and instructions for Lovenox use from Dr. Calabrese. We will also need to obtain clearance and some records from both Dr. Da Silva and the lung transplant clinic at [facility]. Full consent has been obtained [...] cleared for a potential lung transplant in [place]. As such I will plan to arrange this for him. He will need to stop Coumadin for 5 days prior to the procedure and obtain a prescription and instructions for Lovenox use from Dr. Calabrese. We will also need to obtain clearance and some records from both Dr. Da Silva and the lung transplant clinic at [facility]. Full consent has been obtained [...] cleared for a potential lung transplant in [place]. As such I will plan to arrange this for him. He will need to stop Coumadin for 5 days prior to the procedure and obtain a prescription and instructions for Lovenox use from Dr. Calabrese. We will also need to obtain clearance and some records from both Dr. Da Silva and the lung transplant clinic at [facility]. Full consent has been obtained [...] Provider Name:Mason Rock , 11/27/2024 12:50:00 PM, [address] [place] [address], [phone], Progress Notes * NELLY OWENS EDOB:[birth year] (58 yo M)Acc No.[id number]:09/06/2024 Progress Notes Patient:NELLY KILGORE Provider:?Mason Rock MD :1965???Age:58 Y???Sex:Male Filemon e:09/06/2024 Address:[address] [place], [place] [id number] Pcp:Jaz Myers MD Subjective: * Chief Complaints: [...] care of both Dr. Da Silva at [facility] Pulmonary and the [facility] lung transplant center in [place]. Nelly has now become oxygen dependent 24 [...] cleared for a potential lung transplant in [place]. As such I will plan to arrange this for him. He will need to stop Coumadin for 5 days prior to the procedure and obtain a prescription and instructions for Lovenox use from Dr. Calabrese. We will also need to obtain clearance and some records from both Dr. Da Silva and the lung transplant clinic at [facility]. Full consent has been obtained [...] clearance from Dr. Da Silva and the [facility] Lung Transplant Clinic.Telma Isbelln 09/06/2024 04:57:11 PM EDT > * Procedure Codes:?76144 DIAGN OSTIC [id number] COLORECTAL CA SCREEN DOC [id number] TOBACCO NON-[id number] BP SCR NOT PRFRM REC REASON LES0588H RCMND FLW-UP 10 YRS DOCD * Follow Up:?prn * * Sign off status: Completed true * Provider:?Mason Rock MD Date:? 025 Generated for Bridgett gloria/[place]/Carolinaitting on:?09/28/2024 08:28 AM EDT History and Physical Notes * [...] care of both Dr. Da Silva at [facility] Pulmonary and the [facility] lung transplant center in [place]. 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
--- NOTE | 2024-09-28 08:39 | MHC.OFFVISCO ---
Intake Intake Visit Reasons: Anticoagulation Allergies No Known Allergies [No Known Allergies*] Allergy (Verified 09/28/24 08:19) Medication List - Last Reconciled 09/28/24 by Marcia Dave RN albuterol sulfate 90 mcg/actuation 2 inhalations inhalation Q6H PRN 30 days calcium citrate 500 mg (2 x 250 mg calcium) PO DAILY 30 days cetirizine 10 mg PO DAILY PRN chlorpheniramine maleate 4 mg PO Q6H PRN 30 days cholecalciferol (vitamin D3) (Vitamin D3) 100 mcg (2 x 50 mcg (2,000 unit)) PO DAILY 30 days clotrimazole 1% 1 appl topical BID 4 weeks enoxaparin (Lovenox) 60 mg See Protocol subcut Q12H infliximab (Remicade) 336 mg IV Q4W 12 months nintedanib (Ofev) 150 mg PO Q12H 30 days omeprazole 40 mg PO DAILY Oxygen Home Use As directed prednisolone acetate 1% (Pred Forte) 1 drp ophthalmic (eye) BEDTIME prednisone 20 mg PO DAILY prednisone 5 mg PO DAILY warfarin (Jantoven) 4 mg See Protocol PO BEDTIME Nursing Note INR 3.2 out of therapeutic range Medications and supplements reviewed Patient status: S/P increase in prednisone 40 mg prem -on 20mg now INR reflects that dosage Medications or supplements: no other changes- has lovenox for future procedures Diet: good Denies any signs and symptoms of bleeding or clotting or unusual bruising Bleeding, bruising, clotting discussed Nutritional guidance given: greens today and tomorrow Dose: keep same dose 2mg x 2 days/ 4mg x 5 days F/U INR Date: 1/2 weeks ?? Patient verbalizing understanding of instructions given with read back. Anti-Coag Initial Assessment Social Hx Patient Tobacco Use Status: Never used Tobacco alcohol intake: current Alcohol intake frequency: holidays/special occasions only Coding Level of Care Code Est Patient Level 1 Diagnoses Current use of anticoagulant therapy Z79.01 Results AMB INR Fingerstick AMB INR Fingerstick 3.2 Last Edit by Marcia Dave RN on 09/28/24 08:30 MANUAL ENTRY Assessment & Plan Assessment & Plan (1) Current use of anticoagulant therapy: Code(s): Z79.01 - intermediate manager (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
== END 2024-09-28 08:43 | disposition home or self-care (01) ==
LOC: HO.ACS 08:17
PROVIDERS: PCP Internal Medicine; Visit Provider Internal Medicine Medical Oncology
DX: Z79.01 Long term (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 of anticoagulants (principal)

== ENCOUNTER → 2024-09-28 08:17 | Outpatient (BNVA) | payer OTHER, SELFPAY | PROVIDERS: PCP Internal Medicine; Visit Provider Internal Medicine Medical Oncology | DX: I82.402 Acute embolism and thrombosis of unspecified deep veins of left lower extremity (principal); Z79.01 Long term (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 of anticoagulants; Z51.81 Encounter for therapeutic drug level monitoring | CPT/HCPCS: 85610; 99211 ==

== ENCOUNTER 2024-10-10 08:02 | Outpatient (AMB) | payer OTHER, SELFPAY ==
--- OUTSIDE RECORDS SUMMARY | 2024-10-10 08:04 | XMS_ITS | Patient Health Record ---
Author Organization [facility] Address [address] [place] [address] Care Team Providers Care Financial Coordinator Name Role Phone Jaz Myers MD Primary Care Provider Mason Castro [phone] Allergies No Known Allergies Reason For Referral [...] Colon cancer screening (Z12.11) Active confirmed Problem 11781533 Rectal bleeding (K62.5) Active confirmed Problem 306522637 History of adenomatous polyp of colon (Z86.010) Active confirmed Problem Preprocedural examination (509405215822684) Preprocedural examination (Z01.818) Active confirmed Problem Diverticulosis of colon (421079389) Diverticulosis of colon (K57.30) Active confirmed Vital Signs Temperature 97.8 degrees Fahrenheit 09/06/2024 Blood pressure diastolic 01 mm Hg 09/06/2024 Height 64 in 09/06/2024 Blood pressure systolic 001 mm Hg 09/06/2024 Weight 136 lbs 09/06/2024 BMI 23.34 kg/m2 09/06/2024 Procedures Procedure Date Ordered Date Performed Result Body Sit e COLONOSCOPY 09/06/2024 N/A Encounters Encounter Location Date Provider Diagnosis [facility] [address] [place] [address] 09/06/2024 Mason Rock History of adenomato us polyp of colon Z86.010 ; Preprocedural examination Z01.818 and Colon cancer screening Z12.11 [facility] [address] [place] [address] 09/06/2024 Mason Rock Assessments Encounter Date Diagnosis [...] cleared for a potential lung transplant in [place]. As such I will plan to arrange [...] cleared for a potential lung transplant in [place]. As such I will plan to arrange [...] cleared for a potential lung transplant in [place]. As such I will plan to arrange [...] Provider Name:Mason Rock , 11/27/2024 12:50:00 PM, [address] [place] [address] , [place], [place], [phone], Insurance Providers Payer Name Payer Address Payer Phone Subscriber Number Group Number Insured Name Patient Relationship to Insured Coverage Start Date Coverage End Date [facility] [address] [address] [place], [place] [id number] MAX OWENS Self - patient is the insured MEDICAID OF [employer] [address] [place] [address] [id number] MAX OWENS Self - patient is the insured Medical (General) History Medical History History ICD Code Denies [place],DM,CVA,Lung disease,renal dise ase Pulmonary Sarcoidosis--it has also [...] being followed by Dr. Da Silva at [facility] Pulmonary Department and the lung transplant center at [facility] in [place].He is currently on 2 L of nasal cannula 24 hours a day as of the August 2024 office visit. Surgical History Surgery Date(Month/Year) Hernia repair--umbilical 2017
--- NOTE | 2024-10-10 08:18 | MHC.OFFVISCO ---
Intake Intake Visit Reasons: Anticoagulation Allergies No Known Allergies [No Known Allergies*] Allergy (Verified 10/10/24 08:05) Medication List - Last Reconciled 10/10/24 by Mami Springer RN albuterol sulfate 90 mcg/actuation 2 inhalations inhalation Q6H PRN 30 days calcium citrate 500 mg (2 x 250 mg calcium) PO DAILY 30 days cetirizine 10 mg PO DAILY PRN chlorpheniramine maleate 4 mg PO Q6H PRN 30 days cholecalciferol (vitamin D3) (Vitamin D3) 100 mcg (2 x 50 mcg (2,000 unit)) PO DAILY 30 days clotrimazole 1% 1 appl topical BID 4 weeks enoxaparin (Lovenox) 60 mg See Protocol subcut Q12H infliximab (Remicade) 336 mg IV Q4W 12 months nintedanib (Ofev) 150 mg PO Q12H 30 days omeprazole 40 mg PO DAILY Oxygen Home Use As directed prednisolone acetate 1% (Pred Forte) 1 drp ophthalmic (eye) BEDTIME prednisone 20 mg PO DAILY prednisone 5 mg PO DAILY warfarin (Jantoven) 4 mg See Protocol PO BEDTIME Nursing Note INR: 3.1?out of therapeutic range of 2-3 Medications and supplements reviewed Patient status: pt states he has bleeding hemorroids and has an appt with Dr Serrato on 10/16/24 regarding possible procedure for that. Pt will call [facility] when he knows when and if he has to hold warfarin for that procedure. He is also following with [facility] for his lung condition and may have a procedure there. He will notify [facility] when he knows more. Medications or supplements: no changes Diet: same diet, appetite fair, takes ensure daily Denies any signs and symptoms of bleeding or clotting or unusual bruising Bleeding, bruising, clotting discussed Nutritional guidance given: pt will have an extra ensure today and this will bring his INR down into the target range Dose: 4mg X 5 days and 2mg X 2 days(Sun and Thurs) F/U INR Date: 2 weeks?? Patient verbalizing understanding of instructions given. Anti-Coag Initial Assessment Social Hx Patient Tobacco Use Status: Never used Tobacco alcohol intake: current Alcohol intake frequency: holidays/special occasions only Coding Level of Care Code Est Patient Level 1 Diagnoses Current use of anticoagulant therapy Z79.01 Results AMB INR Fingerstick AMB INR Fingerstick 3.1 Last Edit by Mami Springer RN on 10/10/24 08:17 interface delay Assessment & Plan Assessment & Plan (1) Current use of anticoagulant therapy: Code(s): Z79.01 - custodial (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
[2024-10-10 08:20] LABS: Prothrombin Time Whole Bld POC 37.1 sec (11.1-13.5); ~PT, ~INR - Anti Coag Clinic 3.1 (0.9-1.1)
== END 2024-10-10 08:31 | disposition home or self-care (01) ==
LOC: HO.ACS 08:02
PROVIDERS: PCP Internal Medicine; Visit Provider Internal Medicine Medical Oncology
DX: Z79.01 Long term (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 of anticoagulants (principal)

== ENCOUNTER → 2024-10-10 08:02 | Outpatient (BNVA) | payer OTHER, SELFPAY | PROVIDERS: PCP Internal Medicine; Visit Provider Internal Medicine Medical Oncology | DX: I82.402 Acute embolism and thrombosis of unspecified deep veins of left lower extremity (principal); Z79.01 Long term (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 of anticoagulants; Z51.81 Encounter for therapeutic drug level monitoring | CPT/HCPCS: 85610; 99211 ==

== ENCOUNTER 2024-10-11 08:50 | Outpatient (REF) | payer OTHER, SELFPAY ==
--- NOTE | ~2024-10-11 | MM_ITS ---
EXAMINATION: DXA BONE DENSITY AXIAL HISTORY: M81.0 - Age-related osteoporosis without current pathological fracture TECHNIQUE: Frolik Dual energy absorptiometry (DEXA) of the lumbar spine, total left hip, and femoral neck was performed. COMPARISON: Comparison is made with the prior examination dated 04/22/2022. FINDINGS: The bone mineral density of the lumbar spine is 1.158, corresponding to a T-score of -0.5, and a Z-score of 0.3. This is indicative of normal bone mineral density. This represents a BMD change of 1.9% compared to the prior exam. This is not statistically significant. The bone mineral density of the left total hip is 1.209, corresponding to a T-score of 0.7, and a Z-score of 1.5. This is indicative of normal bone mineral density. This represents a BMD change of -7.5% compared to the prior exam. This is statistically significant. The bone mineral density of the left femoral neck is 1.169, corresponding to a T-score of 0.8, and a Z-score of 2.0. This is indicative of normal bone mineral density. This represents a BMD change of -1.2% compared to the prior exam. FRACTURE RISK: The FRAX index suggests a ten year probability of major osteoporotic fracture of 3.3%, and of hip fracture 0.1%. MM/XR DEXA axial skeleton IMPRESSION: Based on bone mineral density, and according to World Health Organization (WHO) criteria, the diagnosis is consistent with normal bone mineral density. All bone density values are in grams per centimeter squared (g/cm2). Statistically, 68% of repeat scans fall within 1 SD (+/- 0.010 g/cm2 for AP spine L1-L4) and 1 SD (+/- 0.012 g/cm2 for femur total) FRAX is a trademark of the [employer]'s [employer] Metabolic Bone Disease, a World Health Organization (WHO) Collaborating Center. Electronically signed by: Mason Riddle MD 10/11/2024 10:23 AM EDT
--- OUTSIDE RECORDS SUMMARY | 2024-10-11 09:11 | XMS_ITS | Encounter Summary ---
Author Organization [facility] Address [address] [place] [address] Care Team Providers Care Managing Member Name Role Phone Jaz Myers MD Primary Care Provider Unavailabl e Reason for Visit * Reason Comments E-prescribe Rx Request Encounter Details Date Type Department Care Team Description 06/08/2020 Refill Pulmonology - [place] 175 [facility] [address] [place] [phone] Devyn Jay MD [address] [place] [address] E-prescribe Rx Request Social History [...] Cough documented in this encounter Care Teams Managing Member Relationship Specialty Start Date End Date Jaz Myers MD PCP - General Internal Medicine 03/23/17 documented as of this encounter
== END 2024-10-11 08:51 | disposition home or self-care (01) ==
LOC: HO.MAMMO 08:50
PROVIDERS: PCP Internal Medicine; Visit Provider Internal Medicine
DX: M81.0 Age-related osteoporosis without current pathological fracture (principal); J84.10 Pulmonary fibrosis, unspecified
CPT/HCPCS: 77080

== ENCOUNTER → 2024-10-11 09:15 | Outpatient (BNV) | payer OTHER, SELFPAY | PROVIDERS: PCP Internal Medicine; Visit Provider Radiology Diagnostic Radiology | DX: M81.0 Age-related osteoporosis without current pathological fracture (principal) | CPT/HCPCS: 77080 ==

== ENCOUNTER 2024-10-17 08:41 | Outpatient (AMB) | payer OTHER, SELFPAY ==
--- NOTE | 2024-10-17 09:02 | MHC.OFFVIS ---
Vital Signs 10/17/24 09:08 Height 5 ft 4 in Weight 143 lb BMI 24.5 BP 180/94 H Blood Pressure Location Lt brachial Position Sitting Pulse 102 H Intake Visit Reasons: Hemorrhoids Intake Note: Patient is seen in office for evaluation of hemorrhoids. Pt c/o: admit to blood in stool and toilet with every bm, denies n/v/d/c, or any other symptoms Legal Collector Required: No Accompanied by: Self / Same As Patient Allergies No Known Allergies [No Known Allergies*] Allergy (Verified 10/10/24 08:05) Medication List - Last Reconciled 10/17/24 by Saurabh Serrato MD albuterol sulfate 90 mcg/actuation 2 inhalations inhalation Q6H PRN 30 days calcium citrate 500 mg (2 x 250 mg calcium) PO DAILY 30 days cetirizine 10 mg PO DAILY PRN chlorpheniramine maleate 4 mg PO Q6H PRN 30 days cholecalciferol (vitamin D3) (Vitamin D3) 100 mcg (2 x 50 mcg (2,000 unit)) PO DAILY 30 days clotrimazole 1% 1 appl topical BID 4 weeks enoxaparin (Lovenox) 60 mg See Protocol subcut Q12H infliximab (Remicade) 336 mg IV Q4W 12 months nintedanib (Ofev) 150 mg PO Q12H 30 days omeprazole 40 mg PO DAILY Oxygen Home Use As directed prednisolone acetate 1% (Pred Forte) 1 drp ophthalmic (eye) BEDTIME prednisone 20 mg PO DAILY prednisone 5 mg PO DAILY warfarin (Jantoven) 4 mg See Protocol PO BEDTIME HPI HPI Hemorrhoids: Details: 58-year-old male here for passage of bright blood per rectum. He says he knows he has had hemorrhoids for many years. He would have some small amounts of bright blood with bowel movements in the past. However, he feels that this has become more frequent the past year. He says that he would see drops of bright blood on the toilet bowl with bowel movements. He also says that he has hemorrhoids would come out after bowel movements but it would reduce spontaneously on its own He denies significant pain He is on Coumadin because of a history of DVTs He is also on oxygen nasal cannula at 2 L/min because of his sarcoidosis. He had been diagnosed to have sarcoidosis for many years but this became worse last year after he had COVID. He gets short of breath easily all the time. [facility] Medical History Bleeding hemorrhoids Pneumonia due to COVID-19 virus Pulmonary fibrosis ILD (interstitial lung disease) Bronchomalacia Right inguinal hernia Sarcoidosis Pulmonary nodules Obesity (BMI 30.0-34.9) Leg pain, right LFT elevation Hyperkalemia Glaucoma BPH (benign prostatic hyperplasia) Vitamin D deficiency Hypercholesterolemia Protein S deficiency DVT (deep venous thrombosis) Thrombocytopenia Surgical History History of right inguinal hernia repair Hx of lymph node biopsy Hx of colonoscopy History of umbilical hernia repair History of appendectomy History of sinus surgery Family History Mother No problems noted. Father Medical history unknown Daughter In good health Sister In good health Brother Lung cancer Social History Household Members: Significant Other Housing: House Are you a primary healthcare applications analyst to a significant other at home: No Do you presently have visiting nurse or other home services: No Alcohol intake: current Alcohol intake frequency: holidays/special occasions only Comment: 3x a year 2 drinks Patient Tobacco Use Status: Never used Tobacco e-Cigarette/Vaping Use: Never Used Second Hand Smoke Exposure: No service: No Current occupational status: employed Cognitive needs: No Hearing needs: No Vision needs: Yes Review of Systems Const Denies chills and Denies fever(s) Card Denies chest pain, Reports dyspnea and Reports dyspnea on exertion Resp Denies cough, Reports dyspnea and Reports dyspnea on exertion GI Reports hematochezia and Denies change in bowel habits Denies hematuria and Denies difficulty urinating Musc Denies back pain and Denies limited range of motion Neuro Denies focal weakness and Denies convulsions Psych Denies depression and Denies mood swings Physical Exam Const Other: Appears short of breath, with O2 by nasal cannula Orientation/consciousness: patient oriented x3 Neck Neck: Yes no lymphadenopathy Resp Auscultation: clear to auscultation bilaterally Cardio Rhythm: regular rhythm GI Other: Rectal exam shows small external hemorrhoids Palpation (GI): Soft to palpation, nontender and no guarding Neuro General: patient oriented x3 Office Procedures Anoscopy He was in healing delfina-knife position. The anoscope was gently inserted. A full examination of the anal canal was done. He did have large internal hemorrhoids. There were no lesions in the anal canal. There was no fissure ulceration. There was no induration on digital exam. There was no bleeding. There were small external hemorrhoids [id number] Assessment & Plan Assessment & Plan (1) Bleeding hemorrhoids: Code(s): K64.9 - Unspecified hemorrhoids Category: Medical Plan: He describes frequent passage of bright blood per rectum. Anoscopy shows large internal hemorrhoids. Likely etiology is blood per rectum would be outlet bleeding from his internal hemorrhoids. He has small external hemorrhoids . I recommended to him to undergo rubber band ligation. We can do this in the office without anesthesia. He significant pulmonary issues and presents with perioperative risks because of this He is also on Coumadin so this would be contributory to his rectal bleeding. We will schedule him to come back to the office for rubber band ligation. Coding Level of Care Code Est Pt Level 3 (33416) Diagnoses Bleeding hemorrhoids K64.9 CPT Codes Details - CPT: 96701-Osmufwxx ([id number])
--- OUTSIDE RECORDS SUMMARY | 2024-10-17 09:02 | XMS_ITS | Patient Health Record ---
Author Organization [facility] Address [address] [place] [address] Care Team Providers Care Reconciling Clerk Name Role Phone Jaz Myers MD Primary Care Provider Mason Castro [phone] Allergies No Known Allergies Reason For Referral [...] Colon cancer screening (Z12.11) Active confirmed Problem 94932740 Rectal bleeding (K62.5) Active confirmed Problem 954078169 History of adenomatous polyp of colon (Z86.010) Active confirmed Problem Preprocedural examination (319634306414311) Preprocedural examination (Z01.818) Active confirmed Problem Diverticulosis of colon (414639185) Diverticulosis of colon (K57.30) Active confirmed Vital Signs Temperature 97.8 degrees Fahrenheit 09/06/2024 Blood pressure diastolic 01 mm Hg 09/06/2024 Height 64 in 09/06/2024 Blood pressure systolic 001 mm Hg 09/06/2024 Weight 136 lbs 09/06/2024 BMI 23.34 kg/m2 09/06/2024 Procedures Procedure Date Ordered Date Performed Result Body Sit e COLONOSCOPY 09/06/2024 N/A Encounters Encounter Location Date Provider Diagnosis [facility] [address] [place] [phone] 09/06/2024 Mason Rock History of adenomato us polyp of colon Z86.010 ; Preprocedural examination Z01.818 and Colon cancer screening Z12.11 [facility] [address] [place] [phone] 09/06/2024 Mason Rock Assessments Encounter Date Diagnosis [...] cleared for a potential lung transplant in [place]. As such I will plan to arrange [...] cleared for a potential lung transplant in [place]. As such I will plan to arrange [...] cleared for a potential lung transplant in [place]. As such I will plan to arrange [...] Provider Name:Mason Rock , 11/27/2024 12:50:00 PM, [address] [place] [address] , [place], [place], [phone], Insurance Providers Payer Name Payer Address Payer Phone Subscriber Number Group Number Insured Name Patient Relationship to Insured Coverage Start Date Coverage End Date [employer] [facility] [address] [address] [place], [place] [id number] NELLY OWENS Self - patient is the insured MEDICAID OF [employer] [address] [place] [address] [id number] NELLY OWENS Self - patient is the insured Medical (General) History Medical History History ICD Code Denies OR,DM,CVA,Lung disease,renal dise ase Pulmonary Sarcoidosis--it has also [...] being followed by Dr. Da Silva at [facility] Pulmonary Department and the lung transplant center at [facility] in [place].He is currently on 2 L of nasal cannula 24 hours a day as of the August 2024 office visit. Surgical History Surgery Date(Month/Year) Hernia repair--umbilical 2017
[2024-10-17 09:08] VITALS: BP 180/94; PULSE 102; BMI 24.5
== END 2024-10-17 09:20 | disposition home or self-care (01) ==
LOC: HO.HGS 08:42
PROVIDERS: PCP Internal Medicine; Visit Provider Surgery
DX: K64.9 Unspecified hemorrhoids (principal)
CPT/HCPCS: 46600; 99213

== ENCOUNTER → 2024-10-17 08:41 | Outpatient (BNVA) | payer OTHER, SELFPAY | PROVIDERS: PCP Internal Medicine; Visit Provider Surgery | DX: K64.9 Unspecified hemorrhoids (principal) | CPT/HCPCS: 46600; 99212 ==

== ENCOUNTER 2024-10-26 07:55 | Outpatient (AMB) | payer OTHER, SELFPAY ==
--- OUTSIDE RECORDS SUMMARY | 2024-10-26 07:58 | XMS_ITS | Patient Health Record ---
Author Organization [facility] Address [address] [place] [address] Care Team Providers Care Technical Consultant Name Role Phone Jaz Myers MD Primary Care Provider Mason Castro [phone] Allergies No Known Allergies Reason For Referral [...] Colon cancer screening (Z12.11) Active confirmed Problem 65594452 Rectal bleeding (K62.5) Active confirmed Problem 198870816 History of adenomatous polyp of colon (Z86.010) Active confirmed Problem Preprocedural examination (984941115598912) Preprocedural examination (Z01.818) Active confirmed Problem Diverticulosis of colon (659634650) Diverticulosis of colon (K57.30) Active confirmed Vital Signs Temperature 97.8 degrees Fahrenheit 09/06/2024 Blood pressure diastolic 01 mm Hg 09/06/2024 Height 64 in 09/06/2024 Blood pressure systolic 001 mm Hg 09/06/2024 Weight 136 lbs 09/06/2024 BMI 23.34 kg/m2 09/06/2024 Procedures Procedure Date Ordered Date Performed Result Body Sit e COLONOSCOPY 09/06/2024 N/A Encounters Encounter Location Date Provider Diagnosis [facility] [address] [place] [phone] 09/06/2024 Mason Rock History of adenomato us polyp of colon Z86.010 ; Preprocedural examination Z01.818 and Colon cancer screening Z12.11 [facility] [address] [place] [phone] 09/06/2024 Mason Rock Assessments Encounter Date Diagnosis [...] cleared for a potential lung transplant in [place]. As such I will plan to arrange [...] Children. Full consent has been obtained from Nelly [...] cleared for a potential lung transplant in [place]. As such I will plan to arrange [...] Children. Full consent has been obtained from Nelly [...] cleared for a potential lung transplant in [place]. As such I will plan to arrange [...] Children. Full consent has been obtained from Nelly [...] Provider Name:Mason Rock , 11/27/2024 12:50:00 PM, [address] [place] [address] , [place], [place], [phone], Insurance Providers Payer Name Payer Address Payer Phone Subscriber Number Group Number Insured Name Patient Relationship to Insured Coverage Start Date Coverage End Date [facility] [address] [address] [place], [place] [id number] NELLY OWENS Self - patient is the insured MEDICAID OF [place] [address] [place] [address] [id number] NELLY OWENS Self - patient is the [...] being followed by Dr. Da Silva at [facility] Pulmonary Department and the lung transplant center at [facility] in [place].He is currently on 2 L of nasal cannula 24 hours a day as of the August 2024 office visit. Surgical History Surgery Date(Month/Year) Hernia repair--umbilical 2017
[2024-10-26 08:02] LABS: ~PT, ~INR - Anti Coag Clinic 2.7 (0.9-1.1)
--- NOTE | 2024-10-26 08:14 | MHC.OFFVISCO ---
Intake Intake Visit Reasons: Anticoagulation Allergies No Known Allergies (No Known Allergies*) Allergy (Verified 10/26/24 07:55) Medication List - Last Reconciled 10/26/24 by Marcia Dave RN albuterol sulfate 90 mcg/actuation 2 inhalations inhalation Q6H PRN 30 days calcium citrate 500 mg (2 x 250 mg calcium) PO DAILY 30 days cetirizine 10 mg PO DAILY PRN chlorpheniramine maleate 4 mg PO Q6H PRN 30 days cholecalciferol (vitamin D3) (Vitamin D3) 100 mcg (2 x 50 mcg (2,000 unit)) PO DAILY 30 days clotrimazole 1% 1 appl topical BID 4 weeks enoxaparin (Lovenox) 60 mg See Protocol subcut Q12H infliximab (Remicade) 336 mg IV Q4W 12 months nintedanib (Ofev) 150 mg PO Q12H 30 days omeprazole 40 mg PO DAILY Oxygen Home Use As directed prednisolone acetate 1% (Pred Forte) 1 drp ophthalmic (eye) BEDTIME prednisone 20 mg PO DAILY prednisone 5 mg PO DAILY warfarin (Jantoven) 4 mg See Protocol PO BEDTIME Nursing Note INR: 2.7 in therapeutic range Medications and supplements reviewed Has hemorrhoids that bleed to have banding done 11/16 - no warfarin hold then colonoscopy with 5 day wafarin hold with lovneox bridge Bleeding, bruising, clotting discussed Nutritional guidance given Dose: 2mg x 2 days/ 4mg x 5 days F/U INR: 2 weeks November 09 Pt enc to ask PCP and pharmacy if TUCKS and or anusol Patient verbalizes understanding of instructions given Anti-Coag Initial Assessment Social Hx Patient Tobacco Use Status: Never used Tobacco alcohol intake: current Alcohol intake frequency: holidays/special occasions only Coding Level of Care Code Est Patient Level 1 Diagnoses Current use of anticoagulant therapy Z79.01 Assessment & Plan Assessment & Plan (1) Current use of anticoagulant therapy: Code(s): 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
== END 2024-10-26 08:18 | disposition home or self-care (01) ==
LOC: HO.ACS 07:55
PROVIDERS: PCP Internal Medicine; Visit Provider Internal Medicine Medical Oncology
DX: Z79.01 Long term (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 of anticoagulants (principal)

== ENCOUNTER → 2024-10-26 07:55 | Outpatient (BNVA) | payer OTHER, SELFPAY | PROVIDERS: PCP Internal Medicine; Visit Provider Internal Medicine Medical Oncology | DX: I82.402 Acute embolism and thrombosis of unspecified deep veins of left lower extremity (principal); Z79.01 Long term (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 of anticoagulants; Z51.81 Encounter for therapeutic drug level monitoring | CPT/HCPCS: 85610; 99211 ==

== ENCOUNTER 2024-11-14 08:03 | Outpatient (AMB) | payer OTHER, SELFPAY ==
--- OUTSIDE RECORDS SUMMARY | 2024-11-14 08:08 | XMS_ITS | Patient Health Record ---
Author Organization [facility] Address [address] [place] [address] Care Team Providers Care Manager Commercial Sales Name Role Phone Jaz Myers MD Primary Care Provider Mason Castro [phone] Allergies No Known Allergies Reason For Referral [...] Status Risk Notes Problem Colon cancer screening (553579239) Colon cancer screening (Z12.11) Active confirmed Problem 29190112 Rectal bleeding (K62.5) Active confirmed Problem 429076774 History of adenomatous polyp of colon (Z86.010) Active confirmed Problem Preprocedural examination (071369414246428) Preprocedural examination (Z01.818) Active confirmed Problem Diverticulosis of colon (013163599) Diverticulosis of colon (K57.30) Active confirmed Vital Signs Temperature 97.8 degrees Fahrenheit 09/06/2024 Blood pressure diastolic 01 mm Hg 09/06/2024 Height 64 in 09/06/2024 Blood pressure systolic 001 mm Hg 09/06/2024 Weight 136 lbs 09/06/2024 BMI 23.34 kg/m2 09/06/2024 Procedures Procedure Date Ordered Date Performed Result Body Sit e COLONOSCOPY 09/06/2024 N/A Encounters Encounter Location Date Provider Diagnosis [facility] [address] [place] [phone] 09/06/2024 Mason Rock History of adenomato us polyp of colon Z86.010 ; Preprocedural examination Z01.818 and Colon cancer screening Z12.11 [facility] [address] [place] [phone] 09/06/2024 Mason Rock Assessments Encounter Date Diagnosis [...] Silva and the lung transplant clinic at [facility]. Full consent has been obtained from Max [...] Silva and the lung transplant clinic at [facility]. Full consent has been obtained from Max [...] Silva and the lung transplant clinic at [facility]. Full consent has been obtained from Max [...] Provider Name:Mason Rock , 11/27/2024 12:50:00 PM, [address] [place] [address] , [place], [place], [phone], Insurance Providers Payer Name Payer Address Payer Phone Subscriber Number Group Number Insured Name Patient Relationship to Insured Coverage Start Date Coverage End Date [facility] [employer] [facility] [address] [address] [place], [place] [id number] MAX OWENS Self - patient is the insured MEDICAID OF [facility] [address] [place] [address] [id number] MAX OWENS Self - patient is the insured Medical (General) History Medical History History ICD Code Denies AK,DM,CVA,Lung disease,renal dise ase Pulmonary Sarcoidosis--it has also [...] followed by Dr. Da Silva at [facility] Pulmonary Department and the lung transplant center at [facility] in [place].He is currently on 2 L of nasal cannula 24 hours a day as of the August 2024 office visit. Surgical History Surgery Date(Month/Year) Hernia repair--umbilical 2017
--- OUTSIDE RECORDS SUMMARY | 2024-11-14 08:08 | XMS_ITS | Encounter Summary ---
Author Organization [facility] Address [address] [place] [address] Care Team Providers Care Roaster Supervisor Name Role Phone Jaz Myers MD Primary Care Provider Unavailabl e Reason for Visit * Reason Comments E-prescribe Rx Request Encounter Details Date Type Department Care Team Description 06/08/2020 Refill Pulmonology - [place] [address] [facility] [address] [place] [phone] Devyn Jay MD [address] [place] [address] E-prescribe Rx Request Social History [...] Cough documented in this encounter Care Teams Roaster Supervisor Relationship Specialty Start Date End Date Jaz Myers MD PCP - General Internal Medicine 03/23/17 documented as of this encounter
[2024-11-14 08:12] LABS: Prothrombin Time Whole Bld POC 21.9 sec (11.1-13.5); ~PT, ~INR - Anti Coag Clinic 1.8 (0.9-1.1)
--- NOTE | 2024-11-14 08:19 | MHC.OFFVISCO ---
Intake Intake Visit Reasons: Anticoagulation Allergies No Known Allergies (No Known Allergies*) Allergy (Verified 11/14/24 08:05) Medication List - Last Reconciled 11/14/24 by Marcia Dave RN albuterol sulfate 90 mcg/actuation 2 inhalations inhalation Q6H PRN 30 days calcium citrate 1,000 mg PO DAILY cetirizine 10 mg PO DAILY PRN cholecalciferol (vitamin D3) (Vitamin D3) 100 mcg (2 x 50 mcg (2,000 unit)) PO DAILY 30 days clotrimazole 1% 1 appl topical BID 4 weeks enoxaparin (Lovenox) 60 mg See Protocol subcut Q12H infliximab (Remicade) 336 mg IV Q4W 12 months nintedanib (Ofev) 150 mg PO Q12H 30 days Oxygen Home Use As directed prednisolone acetate 1% (Pred Forte) 1 drp ophthalmic (eye) BEDTIME prednisone 20 mg PO QAM warfarin (Jantoven) 4 mg See Protocol PO BEDTIME Nursing Note INR 1.8 out of therapeutic range 2.0-3.- Medications and supplements reviewed Patient status: wearing o2 and mask, states humidity challenges with breathing but otherwise good, *11/[address] Serrato- no warfarin hold *11/[address] Rock - 5 day warfarin hold and lovenox brdige Medications or supplements: no changes - lovenox bridge for colonoscopy Diet: good - has not had usual foods to help raise the INR Denies any signs and symptoms of bleeding or clotting or unusual bruising Bleeding, bruising, clotting discussed Nutritional guidance given: avoid greens x 3 days, pt states he will eat his carlos today Dose: keep same for now- 4mg x 5 days/ 2mg x 2 days F/U INR Date : 1 week 11/21/2024 prior warfarin hold lovenox bridge for colonoscopy ?? Patient verbalizing understanding of instructions given. will send MDs msg of possible overlapping of treatment recovery and procedure Anti-Coag Initial Assessment Social Hx Patient Tobacco Use Status: Never used Tobacco alcohol intake: current Alcohol intake frequency: does not drink Coding Level of Care Code Est Patient Level 1 Diagnoses Current use of anticoagulant therapy Z79.01 Results AMB INR Fingerstick AMB INR Fingerstick 1.8 Last Edit by Marcia Dave RN on 11/14/24 08:13 Assessment & Plan Assessment & Plan (1) Current use of anticoagulant therapy: Code(s): Z79.01 - FPC (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
== END 2024-11-14 08:28 | disposition home or self-care (01) ==
LOC: HO.ACS 08:03
PROVIDERS: PCP Internal Medicine; Visit Provider Internal Medicine Medical Oncology
DX: Z79.01 Long term (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 of anticoagulants (principal)

== ENCOUNTER → 2024-11-14 08:03 | Outpatient (BNVA) | payer OTHER, SELFPAY | PROVIDERS: PCP Internal Medicine; Visit Provider Internal Medicine Medical Oncology | DX: Z79.01 Long term (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 of anticoagulants (principal) | CPT/HCPCS: 85610; 99211 ==

== ENCOUNTER 2024-11-21 08:02 | Outpatient (AMB) | payer OTHER, SELFPAY ==
--- OUTSIDE RECORDS SUMMARY | 2024-11-21 08:04 | XMS_ITS | Patient Health Record ---
Author Organization [facility] Address [address] [place] [address] Care Team Providers Care Vacuum Drier Tender Name Role Phone Jaz Myers MD Primary Care Provider Mason Castro [phone] Allergies No Known Allergies Reason For Referral [...] Status Risk Notes Problem Colon cancer screening (452293389) Colon cancer screening (Z12.11) Active confirmed Problem 14880605 Rectal bleeding (K62.5) Active confirmed Problem 359033355 History of adenomatous polyp of colon (Z86.010) Active confirmed Problem Preprocedural examination (736328870738127) Preprocedural examination (Z01.818) Active confirmed Problem Diverticulosis o f colon (K57.30) Active confirmed Vital Signs Temperature 97.8 degrees Fahrenheit 09/06/2024 Blood pressure diastolic 01 mm Hg 09/06/2024 Height 64 in 09/06/2024 Blood pressure systolic 001 mm Hg 09/06/2024 Weight 136 lbs 09/06/2024 BMI 23.34 kg/m2 09/06/2024 Procedures Procedure Date Ordered Date Performed Result Body Sit e COLONOSCOPY 09/06/2024 N/A Encounters Encounter Location Date Provider Diagnosis [facility] [address] [place] [phone] 09/06/2024 Mason Rock History of adenomato us polyp of colon Z86.010 ; Preprocedural examination Z01.818 and Colon cancer screening Z12.11 [facility] [address] [place] [phone] 09/06/2024 Mason Rock [facility] [address] [place] [phone] 11/20/2024 Mason Rock Assessments Encounter Date Diagnosis (ICD [...] cleared for a potential lung transplant in [place]. As such I will plan to arrange this for him. He will need to stop Coumadin for 5 days prior to the procedure and obtain a prescription and instructions for Lovenox use from Dr. Calabrese. We will also need to obtain clearance and some records from both Dr. Da Silva and the lung transplant clinic at [facility]. Full consent has been obtained [...] cleared for a potential lung transplant in [place]. As such I will plan to arrange this for him. He will need to stop Coumadin for 5 days prior to the procedure and obtain a prescription and instructions for Lovenox use from Dr. Calabrese. We will also need to obtain clearance and some records from both Dr. Da Silva and the lung transplant clinic at [facility]. Full consent has been obtained [...] cleared for a potential lung transplant in [place]. As such I will plan to arrange this for him. He will need to stop Coumadin for 5 days prior to the procedure and obtain a prescription and instructions for Lovenox use from Dr. Calabrese. We will also need to obtain clearance and some records from both Dr. Da Silva and the lung transplant clinic at [facility]. Full consent has been obtained [...] Provider Name:Mason Rock , 11/27/2024 12:50:00 PM, [address] [place] [address] , [place], [place], [phone], Insurance Providers Payer Name Payer Address Payer Phone Subscriber Number Group Number Insured Name Patient Relationship to Insured Coverage Start Date Coverage End Date [facility] [employer] [facility] [address] [address] [place], [place] [id number] NELLY OWENS Self - patient is the insured MEDICAID OF [employer] [address] [place] [address] [id number] NELLY OWENS Self - patient is the insured Medical (General) History Medical History History ICD Code Denies [place],DM,CVA,Lung disease,renal dise ase Pulmonary Sarcoidosis--it has also [...] followed by Dr. Da Silva at [facility] Pulmonary Department and the lung transplant center at [facility] in [place].He is currently on 2 L of nasal cannula 24 hours a day as of the August 2024 office visit. Surgical History Surgery Date(Month/Year) Hernia repair--umbilical 2017
[2024-11-21 08:15] LABS: Prothrombin Time Whole Bld POC 31.7 sec (11.1-13.5); ~PT, ~INR - Anti Coag Clinic 2.6 (0.9-1.1)
--- NOTE | 2024-11-21 08:34 | MHC.OFFVISCO ---
Intake Intake Visit Reasons: Anticoagulation Allergies No Known Allergies (No Known Allergies*) Allergy (Verified 11/21/24 08:07) Medication List - Last Reconciled 11/21/24 by Marcia Dave RN albuterol sulfate 90 mcg/actuation 2 inhalations inhalation Q6H PRN 30 days calcium citrate 1,000 mg PO DAILY cetirizine 10 mg PO DAILY PRN cholecalciferol (vitamin D3) (Vitamin D3) 100 mcg (2 x 50 mcg (2,000 unit)) PO DAILY 30 days clotrimazole 1% 1 appl topical BID 4 weeks enoxaparin (Lovenox) 60 mg See Protocol subcut Q12H infliximab (Remicade) 336 mg IV Q4W 12 months nintedanib (Ofev) 150 mg PO Q12H 30 days Oxygen Home Use As directed prednisolone acetate 1% (Pred Forte) 1 drp ophthalmic (eye) BEDTIME prednisone 20 mg PO QAM warfarin (Jantoven) 4 mg See Protocol PO BEDTIME Nursing Note INR: 2.6 in therapeutic range Medications and supplements reviewed * PT hemorrhoidal banding r/s to December 21 2024 *Colonoscopy 11/27/24 next week on warfarin and lovenox bridge, pt has instructions and lovenox Denies any signs and symptoms of bleeding or bruising or clotting. Bleeding, bruising, clotting discussed Nutritional guidance given - avoid greens post procedure so INR cancome up quicker and avoid scratchy foods if poyps removed to decrease risk of bleeding Dose: hold x 5 days then resume 6mg x 1 day 4mg daily F/U INR: 12/01/24 Patient verbalizes understanding of instructions given Anti-Coag Initial Assessment Social Hx Patient Tobacco Use Status: Never used Tobacco alcohol intake: current Alcohol intake frequency: does not drink Coding Level of Care Code Est Patient Level 1 Diagnoses Current use of anticoagulant therapy Z79.01 Results AMB INR Fingerstick AMB INR Fingerstick 2.6 Last Edit by Marcia Dave RN on 11/21/24 08:22 Assessment & Plan Assessment & Plan (1) Current use of anticoagulant therapy: Code(s): Z79.01 - half-way (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
== END 2024-11-21 08:41 | disposition home or self-care (01) ==
LOC: HO.ACS 08:02
PROVIDERS: PCP Internal Medicine; Visit Provider Internal Medicine Medical Oncology
DX: Z79.01 Long term (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 of anticoagulants (principal)

== ENCOUNTER → 2024-11-21 08:02 | Outpatient (BNVA) | payer OTHER, SELFPAY | PROVIDERS: PCP Internal Medicine; Visit Provider Internal Medicine Medical Oncology | DX: I82.402 Acute embolism and thrombosis of unspecified deep veins of left lower extremity (principal); Z79.01 Long term (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 of anticoagulants; Z51.81 Encounter for therapeutic drug level monitoring | CPT/HCPCS: 85610; 99211 ==

== ENCOUNTER 2024-11-27 09:48 | Day surgery (SDC) | payer OTHER, SELFPAY ==
--- OUTSIDE RECORDS SUMMARY | 2024-10-13 09:05 | XMS_ITS | Encounter Summary ---
Author Organization [facility] Address [address] [place] [address] Care Team Providers Care Music Therapy Specialist Name Role Phone Jaz Myers MD Primary Care Provider Unavailabl e Reason for Visit * Reason Comments E-prescribe Rx Request Encounter Details Date Type Department Care Team Description 06/08/2020 Refill Pulmonology - [place] 175 [facility] [address] [place] [phone] Devyn Jay MD [address] [place] [address] E-prescribe Rx Request Social History [...] Cough documented in this encounter Care Teams Music Therapy Specialist Relationship Specialty Start Date End Date Jaz Myers MD PCP - General Internal Medicine 03/23/17 documented as of this encounter
[2024-11-13 11:45] VITALS: BMI 24.2
[2024-11-13 11:49] VITALS: BP 144/87; PULSE 92; RESP 20; O2SAT 95
--- NOTE | 2024-11-13 12:03 | HO.ANESPROP2 ---
HPI - Anesthesia Eval Consult details Narrative: 59yo M for Colonoscopy, 11/27/24 No recent illness No CP. CASH at baseline, but patient able to do stationary bike and some weighted exercises Sarcoid: [place] [facility] [place] list with [facility] - O2 @ 2L continuous (up to 4 L with activity). Optimized for procedures. Prednisone daily - slow taper. 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) Renal calculus, left (Acute) Right inguinal hernia (Acute) Annual physical exam (Acute) Overweight (BMI 25.0-29.9) (Acute) DVT (deep venous thrombosis) (Chronic) Impaired glucose tolerance (Acute) Rectal bleeding (Acute) Cough (Acute) Low TSH level (Acute) Rectal bleeding (Acute) Current use of anticoagulant therapy (Acute) Bleeding hemorrhoids (Acute) Pneumonia due to COVID-19 virus (Acute) Pulmonary fibrosis (Acute) ILD (interstitial lung disease) (Acute) Bronchomalacia (Acute) Sarcoidosis (Acute) Pulmonary nodules (Acute) Protein S deficiency (Acute) Hypercholesterolemia (Acute) BPH (benign prostatic hyperplasia) (Acute) Past Medical History Medical History Oxygen dependent Bleeding hemorrhoids Pneumonia due to COVID-19 virus Pulmonary fibrosis ILD (interstitial lung disease) Bronchomalacia Sarcoidosis Pulmonary nodules Obesity (BMI 30.0-34.9) LFT elevation Hyperkalemia Glaucoma BPH (benign prostatic hyperplasia) Vitamin D deficiency Hypercholesterolemia Protein S deficiency DVT (deep venous thrombosis) Thrombocytopenia Family History Family History Mother No problems noted. Father Medical history unknown Daughter In good health Sister In good health Brother Lung cancer Family history of problems with anesthesia: No Surgical History Surgical History History of bronchoscopy History of right inguinal hernia repair Hx of lymph node biopsy Hx of colonoscopy History of umbilical hernia repair History of appendectomy History of sinus surgery History of Problems with Anesthesia: No Social History Social History Household Members: Significant Other Housing: House Are you a primary inpatient care manager rn to a significant other at home: No Do you presently have visiting nurse or other home services: Yes (medical supply for O2) Alcohol intake: current Alcohol intake frequency: does not drink Comment: 3x a year 2 drinks Patient Tobacco Use Status: Never used Tobacco e-Cigarette/Vaping Use: Never Used Second Hand Smoke Exposure: No service: No Current occupational status: employed Cognitive needs: No Hearing needs: No Vision needs: Yes Meds Allergies Allergy/AdvReac Type Severity Reaction Status Date / Time No Known Allergies (No Known Allergy Verified 12/04/24 11:32 Allergies*) Home Medications ?Medication ?Instructions ?Recorded ?Confirmed ?Last Taken ?Type prednisolone acetate 1 % eye 1 drp ophthalmic (eye) BEDTIME 05/13/21 12/04/24 08/24/22 History drops,suspension (Pred Forte) Oxygen Home Use 12/08/23 12/04/24 Unknown History cetirizine 10 mg tablet 10 mg PO DAILY PRN allergies 05/22/24 12/04/24 Unknown History calcium citrate 1,000 mg PO DAILY 11/13/24 12/04/24 Unknown History prednisone 10 mg tablet 20 mg PO QAM 11/13/24 12/04/24 Unknown History chlorpheniramine maleate 4 mg 4 mg PO Q6H PRN itch 12/01/24 12/04/24 Unknown History tablet (Allergy Relief (chlorpheniramine)) omeprazole 40 mg capsule,delayed 40 mg PO DAILY 12/01/24 12/04/24 Unknown History release Exam Height,Weight and Vital Signs: Height 5 ft 4 in Weight 63.957 kg Last Vital Signs Pulse 92 11/13/24 11:49 Resp 20 11/13/24 11:49 BP 144/87 H 11/13/24 11:49 Pulse Ox 95 11/13/24 11:49 O2 Del Method Nasal Cannula 11/13/24 11:49 O2 Flow Rate 2 11/13/24 11:49 Pertinent Lab Results Pertinent Lab Results: Laboratory Tests 06/25/22 09/19/24 06:15 07:08 WBC 10.4 Hgb 15.5 Hct 47.3 Plt Count 161 Sodium 142 139 Potassium 4.5 5.1 Chloride 106 99 Carbon Dioxide 25 29 BUN 17 H 13 Creatinine 0.85 0.89 Narrative Narrative: EKG 09/2024 Vent. Rate : 103 BPM Atrial Rate : 103 BPM P-R Int : 130 ms QRS Dur : 78 ms QT Int : 310 ms P-R-T Axes : 64 33 47 degrees QTcB Int : 406 ms Sinus tachycardia Septal infarct , age undetermined Abnormal ECG When compared with ECG of 17-Aug-2022 15:19, No significant change was found Airway TM Dist: >3cm Neck ROM: Full Partial: Upper Loose/Missing/Broken Teeth: No Heart: RRR Lungs: CTAB Assessment and Plan Assessment Anesthesia Assessment: Anesthesia Plan Discussed and PAT Visit Final Anesthetic Review Family History of Problems with Anesthesia: No History of Problems with Anesthesia: No
[2024-11-27] MEDS: Lactated Ringers 1,000 ML 100 ML IVCONT (10:24)
--- NOTE | 2024-11-27 10:36 | HO.ANESPROP2 ---
[facility] Active Problems Active Problems: All Active Problems (Updated 11/13/24 @ 11:38 by No Mac RN) Pre-op chest exam (Acute) Chronic respiratory failure (Acute) Abnormal TSH (Acute) Tubular adenoma of colon (Acute) Bladder instability (Acute) Nocturia (Acute) Eczema (Acute) Frequency of micturition (Acute) Renal calculi (Acute) Tinea cruris (Acute) Diffuse abdominal pain (Acute) Right inguinal hernia (Acute) Onychomycosis (Acute) Fatty liver (Acute) oil heaterman systemic steroid user (Acute) Renal calculus, left (Acute) Right inguinal hernia (Acute) Annual physical exam (Acute) Overweight (BMI 25.0-29.9) (Acute) DVT (deep venous thrombosis) (Chronic) Impaired glucose tolerance (Acute) Rectal bleeding (Acute) Cough (Acute) Low TSH level (Acute) Rectal bleeding (Acute) Current use of anticoagulant therapy (Acute) Bleeding hemorrhoids (Acute) Pneumonia due to COVID-19 virus (Acute) Pulmonary fibrosis (Acute) ILD (interstitial lung disease) (Acute) Bronchomalacia (Acute) Sarcoidosis (Acute) Pulmonary nodules (Acute) Protein S deficiency (Acute) Hypercholesterolemia (Acute) BPH (benign prostatic hyperplasia) (Acute) Past Medical History Medical History Oxygen dependent Bleeding hemorrhoids Pneumonia due to COVID-19 virus Pulmonary fibrosis ILD (interstitial lung disease) Bronchomalacia Sarcoidosis Pulmonary nodules Obesity (BMI 30.0-34.9) LFT elevation Hyperkalemia Glaucoma BPH (benign prostatic hyperplasia) Vitamin D deficiency Hypercholesterolemia Protein S deficiency DVT (deep venous thrombosis) Thrombocytopenia Functional capacity: independent ambulation Family History Family History Mother No problems noted. Father Medical history unknown Daughter In good health Sister In good health Brother Lung cancer Family history of problems with anesthesia: No Surgical History Surgical History History of bronchoscopy History of right inguinal hernia repair Hx of lymph node biopsy Hx of colonoscopy History of umbilical hernia repair History of appendectomy History of sinus surgery History of Problems with Anesthesia: No Social History Social History Household Members: Significant Other Housing: House Are you a primary patient care specialist to a significant other at home: No Do you presently have visiting nurse or other home services: Yes (medical supply for O2) Alcohol intake: current Alcohol intake frequency: does not drink Comment: 3x a year 2 drinks Patient Tobacco Use Status: Never used Tobacco e-Cigarette/Vaping Use: Never Used Second Hand Smoke Exposure: No Use of substances other than those prescribed or required for medical reasons: No Have you been hit, kicked, punched, or otherwise hurt by someone within the past year? If so, by whom?: No Spiritual Healthcare Practices: no Mormon Healthcare Practices: no Cultural Healthcare Practices: no Are you DNR?: No Advance Directives Information Provided: Yes (as above noted, to bring copy DOS) Advance Directives on File: No Poor oral hygiene: No (upper partial-one tooth-front) service: No Current occupational status: employed Cognitive needs: No Hearing needs: No Vision needs: Yes Meds Allergies Allergy/AdvReac Type Severity Reaction Status Date / Time No Known Allergies (No Known Allergy Verified 11/27/24 10:21 Allergies*) Active Medications: Current Medications Albuterol Sulfate (Albuterol Sulfate (0.083%) 2.5 Mg/3 Ml Vial.Neb) 2.5 mg INHALE ONCE PRN PRN Reason: Shortness of Breath/Wheezing Lactated Ringer's (Lr) 1,000 mls @ 100 mls/hr IVCONT .Q10H MAJO Last Admin: 11/27/24 10:24 Dose: 100 mls/hr Sodium Biphosphate/Sodium Phosphate (Sodium Phosphate,[place]-Dibasic 133 Ml Enema) 133 ml DC ONCE PRN PRN Reason: Poor Colonoscopy Prep Results Home Medications ?Medication ?Instructions ?Recorded ?Confirmed ?Last Taken ?Type prednisolone acetate 1 % eye 1 drp ophthalmic (eye) BEDTIME 05/13/21 11/21/24 08/24/22 History drops,suspension (Pred Forte) Oxygen Home Use 12/08/23 11/21/24 Unknown History cetirizine 10 mg tablet 10 mg PO DAILY PRN allergies 05/22/24 11/21/24 Unknown History calcium citrate 1,000 mg PO DAILY 11/13/24 11/21/24 Unknown History prednisone 10 mg tablet 20 mg PO QAM 11/13/24 11/21/24 Unknown History Exam Height,Weight and Vital Signs: Height 5 ft 4 in Weight 63.957 kg Last Vital Signs Pulse 92 11/13/24 11:49 Resp 20 11/13/24 11:49 BP 144/87 H 11/13/24 11:49 Pulse Ox 95 11/13/24 11:49 O2 Del Method Nasal Cannula 11/13/24 11:49 O2 Flow Rate 2 11/13/24 11:49 Assessment and Plan Final Anesthetic Review Family History of Problems with Anesthesia: No History of Problems with Anesthesia: No
[2024-11-27 10:38] VITALS: BP 144/94; PULSE 100; RESP 18; TEMP 36.6; O2SAT 99
[2024-11-27 10:40] VITALS: BMI 23.2
[2024-11-27 10:46] LABS: INTERNATIONAL NORM RATIO 1.0 (0.9-1.1); Prothrombin Time 11.8 SEC (10.9-12.4)
--- NOTE | 2024-11-27 11:13 | P.CONAN_ITS ---
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) Renal calculus, left (Acute) Right inguinal hernia (Acute) Annual physical exam (Acute) Overweight (BMI 25.0-29.9) (Acute) DVT (deep venous thrombosis) (Chronic) Impaired glucose tolerance (Acute) Rectal bleeding (Acute) Cough (Acute) Low TSH level (Acute) Rectal bleeding (Acute) Current use of anticoagulant therapy (Acute) Bleeding hemorrhoids (Acute) Pneumonia due to COVID-19 virus (Acute) Pulmonary fibrosis (Acute) ILD (interstitial lung disease) (Acute) Bronchomalacia (Acute) Sarcoidosis (Acute) Pulmonary nodules (Acute) Protein S deficiency (Acute) Hypercholesterolemia (Acute) BPH (benign prostatic hyperplasia) (Acute) Past Medical History Medical History Oxygen dependent Bleeding hemorrhoids Pneumonia due to COVID-19 virus Pulmonary fibrosis ILD (interstitial lung disease) Bronchomalacia Sarcoidosis Pulmonary nodules Obesity (BMI 30.0-34.9) LFT elevation Hyperkalemia Glaucoma BPH (benign prostatic hyperplasia) Vitamin D deficiency Hypercholesterolemia Protein S deficiency DVT (deep venous thrombosis) Thrombocytopenia Functional capacity: independent ambulation Family History Family History Mother No problems noted. Father Medical history unknown Daughter In good health Sister In good health Brother Lung cancer Family history of problems with anesthesia: No Surgical History Surgical History History of bronchoscopy History of right inguinal hernia repair Hx of lymph node biopsy Hx of colonoscopy History of umbilical hernia repair History of appendectomy History of sinus surgery History of Problems with Anesthesia: No Social History Social History Household Members: Significant Other Housing: House Are you a primary nurse wound care to a significant other at home: No Do you presently have visiting nurse or other home services: Yes (medical jacques pply for O2) Alcohol intake: current Alcohol intake frequency: does not drink Comment: 3x a year 2 drinks Patient Tobacco Use Status: Never used Tobacco e-Cigarette/Vaping Use: Never Used Second Hand Smoke Exposure: No Use of substances other than those prescribed or required for medical reasons: No Have you been hit, kicked, punched, or otherwise hurt by someone within the past year? If so, by whom?: No Spiritual Healthcare Practices: no Worship Healthcare Practices: no Cultural Healthcare Practices: no Are you DNR?: No Advance Directives Information Provided: Yes (as above noted, to bring copy DOS) Advance Directives on File: No Poor oral hygiene: No (upper partial-one tooth-front) service: No Current occupational status: employed Cognitive needs: No Hearing needs: No Vision needs: Yes Meds Allergies Allergy/AdvReac Type Severity Reaction Status Date / Time No Known Allergies (No Known Allergy Verified 11/27/24 10:21 Allergies*) Active Medications: Current Medications Albuterol Sulfate (Albuterol Sulfate (0.083%) 2.5 Mg/3 Ml Vial.Neb) 2.5 mg INHALE ONCE PRN PRN Reason: Shortness of Breath/Wheezing Lactated Ringer's (Lr) 1,000 mls @ 100 mls/hr IVCONT .Q10H MAJO Last Admin: 11/27/24 10:24 Dose: 100 mls/hr Sodium Biphosphate/Sodium Phosphate (Sodium Phosphate,[place]-Dibasic 133 Ml Enema) 133 ml LA ONCE PRN PRN Reason: Poor Colonoscopy Prep Results Home Medications ?Medication ?Instructions ?Recorded ?Confirmed ?Last Taken ?Type prednisolone acetate 1 % eye 1 drp ophthalmic (eye) BE DTIME 05/13/21 11/21/24 08/24/22 History drops,suspension (Pred Forte) Oxygen Home Use 12/08/23 11/21/24 Unknown H istory cetirizine 10 mg tablet 10 mg PO DAILY PRN allergies 05/22/24 11/21/24 Unknown History calcium citrate 1,000 mg PO DAILY 11/13/24 0 11/21/24 Unknown History prednisone 10 mg tablet 20 mg PO QAM 11/13/24 Unknown History Exam Height,Weight and Vital Signs: Height 5 ft 4 in Weight 61.4 kg Last Vital Signs Temp 97.9 F 11/27/24 10:38 Pulse 100 11/27/24 10:38 Resp 18 11/27/24 10:38 BP 144/94 H 11/27/24 10:38 Pulse Ox 99 11/27/24 10:38 O2 Del Method Nasal Cannula 11/27/24 10:38 O2 Flow Rate 2 11/27/24 10:38 Pertinent Lab Results Pertinent Lab Results: Laboratory Tests 11/27/24 10:29 PT 11.8 INR 1.0 Airway Mallampati Class: II TM Dist: >3cm Neck ROM: Full Heart: RRR Lungs: BS decreased bl Assessment and Plan Assessment Anesthesia Assessment: Anesthesia Plan Discussed Final Anesthetic Review Family History of Problems with Anesthesia: No History of Problems with Anesthesia: No NPO: Yes ASA Class: III Final Preanesthetic Review: Meds/Allgs Chart Reviewed, Consent Obtained/Reviewed and Anes Risks/Benef Reviewed Patient Risk: Intermediate Procedure Risk: Low Anesthetic Plan Anesthetic Plan: MAC: Disposition: Standard PACU
[2024-11-27 12:56] VITALS: BP 100/73; PULSE 100; RESP 16; TEMP 36.9; O2SAT 98
--- NOTE | 2024-11-27 13:02 | PM.OP ---
Brief Operative Note Date of Service: 11/27/24 Pre-op diagnosis: Screening Post-op diagnosis: other (R/O Colitis, Diverticulosis) Procedure: Colonoscopy to the cecum and TI with biopsies Surgeon: Mason Rock MD Anesthesia: MAC Was an Collection Development Librarian used for this Procedure?: No Estimated blood loss (mL): 2.0 Pathology: other (A. Colon from 40 to 60cm) Condition: stable Disposition: PACU
--- NOTE | 2024-11-27 13:04 | HO.POSTANES ---
Post Anesthesia Evaluation Post Anesthesia Evaluation Date of Service: 11/27/24 Vital Signs: Vital Signs Temp Pulse Resp BP Pulse Ox O2 Del Method O2 Flow Rate 11/27/24 12:56 98.4 F 100 16 100/73 98 Nasal Cannula 2 11/27/24 10:38 97.9 F 100 18 144/94 H 99 Nasal Cannula 2 Anesthesia: Monitored Mental Status: Awake Pain Control: Satisfactory Nausea/Vomiting: None Hydration: Adequate Anesthesia-Related Issues: No Anes. Related Issues
[2024-11-27 13:10] VITALS: BP 119/81; PULSE 100; RESP 16; O2SAT 98
[2024-11-27 13:24] VITALS: BP 118/72; PULSE 93; RESP 20; O2SAT 98
[2024-11-27 13:37] VITALS: BP 119/86; PULSE 82; RESP 16; TEMP 36.8; O2SAT 100
--- NOTE | 2024-11-27 21:57 | OP_ITS ---
DATE OF SERVICE: 11/27/2024 SURGEON: Mason Rock MD INDICATIONS: The patient presents for evaluation of colorectal cancer screening and personal history of tubular adenoma of the colon. Full consent was obtained from him for this, including risks of bleeding and perforation. PREOPERATIVE DIAGNOSIS: POSTOPERATIVE DIAGNOSIS: PROCEDURE PERFORMED: Colonoscopy to the cecum and terminal ileum with biopsies. ESTIMATED BLOOD LOSS: COMPLICATIONS: ANESTHESIA: Medication Used: Monitored anesthesia care. ASSISTANTS: SPECIMENS: PREOPERATIVE DIAGNOSES: Colorectal cancer screening and personal history of colon polyp. POSTOPERATIVE DIAGNOSES: Colorectal cancer screening and personal history of colon polyp, rule out colitis, diverticulosis, and internal hemorrhoids. DESCRIPTION OF PROCEDURE: The patient was placed in the left lateral decubitus position. The digital rectal exam revealed no abnormalities. The Olympus video pediatric colonoscope was entered into the rectum and advanced easily to the cecum. Once in the cecum, I did identify normal-appearing cecal pouch, appendiceal orifice, a normal-appearing ileocecal valve. The terminal ileum was cannulated and appeared normal. The scope was withdrawn back in the colon. The entire cecum and ileocecal valve appeared normal. The scope was slowly withdrawn assessing all mucosal surfaces carefully. Preparation was excellent. I did not visualize any sign of polyps nor angiodysplasia. In the descending and sigmoid colon, were mucosal changes consistent with possible colitis with some edema, slight friability, and erythema. Biopsies were obtained between 40 and 60 cm. The rectal mucosa appeared to be fairly normal without any definitive changes. In the rectum, scope was retroflexed, visualizing internal hemorrhoids, but no other pathology. The rectal mucosa appeared normal. Scope was straightened and withdrawn from the patient. He tolerated the procedure well and was returned to recovery area in stable condition. IMPRESSION: 1. Diverticulosis. 2. Rule out colitis. 3. Internal hemorrhoids. PLAN: The results of biopsies will be checked. He does report that his bowel movements have been somewhat looser, but he attributed that to one of his pulmonary medications. If indeed there is colitis on the biopsies, we may want to consider treating that with at least a mesalamine medication. He theoretically, could have another colonoscopy in 5 years for further screening, given his previous history of polyps, although clearly we would have to take his clinical condition to account at that time. He was advised to resume his Coumadin and Lovenox tomorrow and then have that adjusted by the anticoagulation clinic and/or Dr. Calabrese's office. MD ALLISON Lara/ERMELINDA / [id number] MTDD
== END 2024-11-27 14:05 | disposition home or self-care (01) ==
PROVIDERS: PCP Internal Medicine; Visit Provider Internal Medicine
PROC: 0DJD8ZZ Inspection of Lower Intestinal Tract, Via Natural or Artificial Opening Endoscopic (ICD-10-PCS; CPT 45378; principal; 2024-11-27 10:40)
DX: Z12.11 Encounter for screening for malignant neoplasm of colon (principal); Z86.0101 Personal history of adenomatous and serrated colon polyps; K57.30 Diverticulosis of large intestine without perforation or abscess without bleeding; K64.8 Other hemorrhoids; R91.8 Other nonspecific abnormal finding of lung field; J84.10 Pulmonary fibrosis, unspecified; D86.89 Sarcoidosis of other sites; D68.59 Other primary thrombophilia; Z86.718 Personal history of other venous thrombosis and embolism; Z79.01 Long term (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 of anticoagulants; Z79.899 Other long term (current) drug therapy; Z99.81 Dependence on supplemental oxygen
CPT/HCPCS: 45380; 36415; 85610; 88305; J2003; J2704

== ENCOUNTER 2024-12-01 08:10 | Outpatient (AMB) | payer OTHER, SELFPAY ==
--- OUTSIDE RECORDS SUMMARY | 2024-12-01 08:14 | XMS_ITS | Patient Health Record ---
Author Organization [facility] Address [address] [place] [address] Care Team Providers Care Grain And Yeast Plants Supervisor Name Role Phone Jaz Myers MD Primary Care Provider Mason Castro [phone] Allergies No Known Allergies Results Component Value Reference Range Notes Prothrombin Time INR Reviewed date:11/28/2024 10:12:07 AM Interpretation: Performing Lab:[facility], [address] [place] [id number] Notes/Report: Prothrombin Time 11.8 10.9-12.4 SEC INTERNATIONAL NORM RATIO 1.0 0.9-1.1 INTERNATIONAL NORMALIZED RATIO (INR) REFERENCE RANGES Reference Range For patients not on anticoagulant therapy: 0.9 - 1.1 INR ranges for oral anticoagulant therapy: For prevention and treatment of venous thrombosis and pulmonary embolism: 2.0 - 3.0 For acute myocardial infarction with aspirin therapy: 2.0 - 3.0 For acute myocardial infarction without aspirin therapy: 3.0 - 4.0 For patients with mechanical prosthetic heart valves: 2.5 - 3.5 Pathology (Not yet reviewed by provider) Interpretation: Performing Lab:[facility], [address] [place] [phone] Notes/Report: Reason For Referral No Information Medications Medication [...] Colon cancer screening (Z12.11) Active confirmed Problem 89139536 Rectal bleeding (K62.5) Active confirmed Problem 910817384 History of adenomatous polyp of colon (Z86.010) Active confirmed Problem Preprocedural examination (867618054848218) Preprocedural examination (Z01.818) Active confirmed Problem Diverticulosis of colon (771220417) Diverticulosis of colon (K57.30) Active confirmed Vital Signs Temperature 97.8 degrees Fahrenheit 09/06/2024 Blood pressure diastolic 01 mm Hg 09/06/2024 Height 64 in 09/06/2024 Blood pressure systolic 001 mm Hg 09/06/2024 Weight 136 lbs 09/06/2024 BMI 23.34 kg/m2 09/06/2024 Procedures Procedure Date Ordered Date Performed Result Body Sit e COLONOSCOPY 09/06/2024 N/A Encounters Encounter Location Date Provider Diagnosis [facility] [address] [place], [place] [phone] 11/27/2024 Mason Rock [facility] [address] [place] [address] 09/06/2024 Mason Rock History of adenomato us polyp of colon Z86.010 ; Preprocedural examination Z01.818 and Colon cancer screening Z12.11 [facility] [address] [place] [address] 09/06/2024 Mason Rock [facility] [address] [place] [address] 11/20/2024 Mason Rock Assessments Encounter Date Diagnosis [...] cleared for a potential lung transplant in [place]. As such I will plan to arrange this for him. He will need to stop Coumadin for 5 days prior to the procedure and obtain a prescription and instructions for Lovenox use from Dr. Calabrese. We will also need to obtain clearance and some records from both Dr. Da Silva and the lung transplant clinic at [facility]. Full consent has been obtained from [...] cleared for a potential lung transplant in [place]. As such I will plan to arrange this for him. He will need to stop Coumadin for 5 days prior to the procedure and obtain a prescription and instructions for Lovenox use from Dr. Calabrese. We will also need to obtain clearance and some records from both Dr. Da Silva and the lung transplant clinic at [facility]. Full consent has been obtained from [...] cleared for a potential lung transplant in [place]. As such I will plan to arrange this for him. He will need to stop Coumadin for 5 days prior to the procedure and obtain a prescription and instructions for Lovenox use from Dr. Calabrese. We will also need to obtain clearance and some records from both Dr. Da Silva and the lung transplant clinic at [facility]. Full consent has been obtained from [...] Test Test Name Order Date COLONOSCOPY 09/06/2024 Pathology 11/27/2024 Future Test Test Name Order Date COLONOSCOPY 07/27/2018 COLONOSCOPY 03/19/2021 Insurance Providers Payer Name Payer Address Payer Phone Subscriber Number Group Number Insured Name Patient Relationship to Insured Coverage Start Date Coverage End Date [facility] [employer] [address] [address] [place], [place] [phone] [id number] NELLY OWENS Self - patient is the insured MEDICAID OF [facility] [address] [place] [address] [phone] [id number] NELLY OWENS Self - patient is the [...] being followed by Dr. Da Silva at [facility] and the lung transplant center at [facility] in [place].He is currently on 2 L of nasal cannula 24 hours a day as of the August 2024 office visit. Surgical History Surgery Date(Month/Year) Hernia repair--umbilical 2017
--- OUTSIDE RECORDS SUMMARY | 2024-12-01 08:14 | XMS_ITS | Encounter Summary ---
Author Organization [facility] Address [address] [place] [address] Phone Care Team Providers Care Sawdust Machine Operator Name Role Phone Jaz Myers MD Primary Care Provider [phone] Radha Fox MD, S Unavailable Devyn Jay MD Unavailable [phone] Encounter Details Date Type Department Care Team (Late st Contact Info) Description 11/17/2023 Procedure Pass [facility] Endoscopy Admitting Dept Virtual Department [address] [place] [address] Social History Tobacco Use Types Packs/Day Years Used Date Smoking Tobacco: Never Assessed Education Answer Date Recorded Are you interested in more education? Not on nga e 11/16/2023 Are you concerned about learning? Not on file 11/16/2023 No 11/16/2023 No 11/16/2023 Digital Access Answer Date Recorded No 11/16/2023 No 11/16/2023 Reliable internet access at home? Not on file 11/16/2023 Device with a working camera? Not on file Intimate Partner Violence Answer Date R ecorded Are you denied basic needs s uch as food, clothing, or medical care? No 11/16/2023 In the past 12 months have y ou been in a relationship with a person who hurts, threatens, or tries to control you? No 11/16/2023 Are you denied basic needs s uch as food, clothing, or medical care? No 11/16/2023 In the past 12 months have y ou been in a relationship with a person who hurts, threatens, or tries to control you? No 11/16/2023 Comments Unknown Sex and Gender Information Value Date Recorded Sex Assigned at Unknown 11/16/2023 6:15 PM EDT Legal Sex Male 7:29 PM EST Gender Identity Male 11/16/2023 6:15 PM EDT Sexual Orientation Don't know 11/16/2023 6: 15 PM EDT documented as of this encounter Plan of Treatment Scheduled Procedures Name Priority Associated Diagnoses Date/Ti me ESOPHAGEAL MOTILITY Encounter for pre-transplant evaluation for lung transplant documented as of this encounter Visit Diagnoses Not on filedocumented in this encounter Additional Health Concerns Infection Onset Date Last Indicated Resolved Time COVID-19 11/17/2023 11/19/2023 12/08/2023 1:21 AM EDT documented as of this encounter Care Teams Sawdust Machine Operator Relationship Specialty Start Date End Date Po, Jaz Whalen MD [address] [place] [address] PCP - General Internal Medicine 11/16/23 Radha Fox MD, S [address] [place] [address] [address] [place] [address] [email or web address] Referring Physician Pulmonary Disease 06/14/24 Devyn Jay MD [address] [place] [address] [address] [place] [address] Pulmonary Disease 09/08/24 documented as of this encounter Additional Source Comments The information contained in this document represents components of the legal health record. It is not the complete legal health record.[facility]
--- OUTSIDE RECORDS SUMMARY | 2024-12-01 08:14 | XMS_ITS | Encounter Summary ---
Author Organization [facility] Address [address] [place] [address] Care Team Providers Care Engraver Jewelry Name Role Phone Jaz Myers MD Primary Care Provider Unavailabl e Reason for Visit * Reason Onset Date Comments Faxed Refill 10/14/2021 Methotrexate Encounter Details Date Type Department Care Team Description 10/14/2021 Refill Pulmonology - [place] [address] [facility] [address] [address] [place] [address] Devyn Jay MD [address] [place] [address] Faxed Refill (Methotrexate) Social History [...] N/A Patients current insurance carrier is: Payor: [employer] / Plan: [facility] / Product Type: MEDICAID RISK Patient request a 90 day prescription documented in this encounter Plan of Treatment Not on file documented as of this encounter Visit Diagnoses Diagnosis Interstitial lung disease (HCC) Postinflammatory pulmonary fibrosis documented in this encounter Care Teams Engraver Jewelry Relationship Specialty Start Date End Date Jaz Myers MD PCP - General Internal Medicine 03/23/17 documented as of this encounter
--- NOTE | 2024-12-01 08:47 | MHC.OFFVISCO ---
Intake Intake Visit Reasons: Anticoagulation Allergies No Known Allergies (No Known Allergies*) Allergy (Verified 12/01/24 08:42) Medication List - Last Reconciled 12/01/24 by Roybn Ulloa RN albuterol sulfate 90 mcg/actuation 2 inhalations inhalation Q6H PRN 30 days calcium citrate 1,000 mg PO DAILY cetirizine 10 mg PO DAILY PRN chlorpheniramine maleate (Allergy Relief (chlorpheniramine)) 4 mg PO Q6H PRN cholecalciferol (vitamin D3) (Vitamin D3) 100 mcg (2 x 50 mcg (2,000 unit)) PO DAILY 30 days clotrimazole 1% 1 appl topical BID 4 weeks enoxaparin (Lovenox) 60 mg See Protocol subcut Q12H infliximab (Remicade) 336 mg IV Q4W 12 months nintedanib (Ofev) 150 mg PO Q12H 30 days omeprazole 40 mg PO DAILY Oxygen Home Use As directed prednisolone acetate 1% (Pred Forte) 1 drp ophthalmic (eye) BEDTIME prednisone 20 mg PO QAM warfarin (Jantoven) 4 mg See Protocol PO BEDTIME Nursing Note INR 1.3-? out of therapeutic range of 2-3 Medications and supplements reviewed Patient status: pt s/p colonoscopy on 11/27/24, pt states no polyps pt did 5 day hold on warfarin with lovenox bridge pre/post proc Medications or supplements: no changes Diet: same Denies any signs and symptoms of bleeding or clotting or unusual bruising Bleeding, bruising, clotting discussed Nutritional guidance given: no greens, eat reds to raise Dose: 6mg warfarin today and tomm then cont reg dosing, 2mg x 2, 4mg x 5 cont lovenox F/U INR Date : wednesday12/04/24?? Patient verbalizing understanding of instructions given. pcp Dr Myers called with low inr/dosing and f/u appt. spoke to breezy at 0900. 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
[2024-12-01 08:48] LABS: Prothrombin Time Whole Bld POC 15.8 sec (11.1-13.5); ~PT, ~INR - Anti Coag Clinic 1.3 (0.9-1.1)
== END 2024-12-01 09:11 | disposition home or self-care (01) ==
LOC: HO.ACS 08:10
PROVIDERS: PCP Internal Medicine; Visit Provider Internal Medicine Medical Oncology
DX: Z79.01 Long term (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 of anticoagulants (principal)

== ENCOUNTER → 2024-12-01 08:10 | Outpatient (BNVA) | payer OTHER, SELFPAY | PROVIDERS: PCP Internal Medicine; Visit Provider Internal Medicine Medical Oncology | DX: I82.402 Acute embolism and thrombosis of unspecified deep veins of left lower extremity (principal); Z79.01 Long term (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 of anticoagulants; Z51.81 Encounter for therapeutic drug level monitoring | CPT/HCPCS: 85610; 99212 ==

== ENCOUNTER 2024-12-04 11:31 | Outpatient (AMB) | payer OTHER, SELFPAY ==
[2024-12-04 11:37] LABS: Prothrombin Time Whole Bld POC 22.9 sec (11.1-13.5); ~PT, ~INR - Anti Coag Clinic 1.9 (0.9-1.1)
--- NOTE | 2024-12-04 11:43 | MHC.OFFVISCO ---
Intake Intake Visit Reasons: Anticoagulation Allergies No Known Allergies (No Known Allergies*) Allergy (Verified 12/04/24 11:32) Medication List - Last Reconciled 12/04/24 by Mami Springer RN albuterol sulfate 90 mcg/actuation 2 inhalations inhalation Q6H PRN 30 days calcium citrate 1,000 mg PO DAILY cetirizine 10 mg PO DAILY PRN chlorpheniramine maleate (Allergy Relief (chlorpheniramine)) 4 mg PO Q6H PRN cholecalciferol (vitamin D3) (Vitamin D3) 100 mcg (2 x 50 mcg (2,000 unit)) PO DAILY 30 days clotrimazole 1% 1 appl topical BID 4 weeks enoxaparin (Lovenox) 60 mg See Protocol subcut Q12H infliximab (Remicade) 336 mg IV Q4W 12 months nintedanib (Ofev) 150 mg PO Q12H 30 days omeprazole 40 mg PO DAILY Oxygen Home Use As directed prednisolone acetate 1% (Pred Forte) 1 drp ophthalmic (eye) BEDTIME prednisone 20 mg PO QAM warfarin (Jantoven) 4 mg See Protocol PO BEDTIME Nursing Note INR: 1.9?out of therapeutic range of 2-3 Medications and supplements reviewed Patient status: usual health for pt Medications or supplements: no changes Diet: usual diet for pt Denies any signs and symptoms of bleeding or clotting or unusual bruising Bleeding, bruising, clotting discussed Nutritional guidance given: to avoid greens today Dose: today's dose increased to 6mg (usual 4mg) and tomorrow's dose increased to 6mg (4mg) then 4mg X 5 days and 2mg X 2 days (Sun & Thurs) Pt has been taking lovenox and will take one more dose tonight then stop. F/U INR Date: 1 week?? Patient verbalizing understanding of instructions given. Anti-Coag Initial Assessment Social Hx Patient Tobacco Use Status: Never used Tobacco alcohol intake: current Alcohol intake frequency: does not drink Coding Level of Care Code Est Patient Level 1 Diagnoses Current use of anticoagulant therapy Z79.01 Assessment & Plan Assessment & Plan (1) Current use of anticoagulant therapy: Code(s): Z79.01 - care home (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
--- OUTSIDE RECORDS SUMMARY | 2024-12-04 12:47 | XMS_ITS | Patient Health Record ---
Author Organization [facility] Address [address] [place] [address] Care Team Providers Care Track Repair Supervisor Name Role Phone Jaz Myers MD Primary Care Provider Mason Castro [phone] Allergies No Known Allergies Results Component Value Reference Range Notes Prothrombin Time INR Reviewed date:11/28/2024 10:12:07 AM Interpretation: Performing Lab:[facility], [address] [place] [id number] Notes/Report: Prothrombin Time 11.8 10.9-12.4 [employer] [...] (Not yet reviewed by provider) Interpretation: Performing Lab:[facility], [address] [place] [phone] Notes/Report: Reason For Referral No Information Medications [...] Colon cancer screening (Z12.11) Active confirmed Problem 46949404 Rectal bleeding (K62.5) Active confirmed Problem 243780550 History of adenomatous polyp of colon (Z86.010) Active confirmed Problem Preprocedural examination (043887033186259) Preprocedural examination (Z01.818) Active confirmed Problem Diverticulosis of colon (508107342) Diverticulosis of colon (K57.30) Active confirmed Vital Signs Temperature 97.8 degrees Fahrenheit 09/06/2024 Blood pressure diastolic 01 mm Hg 09/06/2024 Height 64 in 09/06/2024 Blood pressure systolic 001 mm Hg 09/06/2024 Weight 136 lbs 09/06/2024 BMI 23.34 kg/m2 09/06/2024 Procedures Procedure Date Ordered Date Performed Result Body Sit e COLONOSCOPY 09/06/2024 N/A Encounters Encounter Location Date Provider Diagnosis [facility] [address] [place], [place] [id number] 11/27/2024 [place] [facility] [address] [place] [address] 09/06/2024 [place] History of adenomato us polyp of colon Z86.010 ; Preprocedural examination Z01.818 and Colon cancer screening Z12.[address] [facility] [address] [place] [address] 12/01/[address] [facility] [address] [place] [address] 09/06/[address] [facility] [address] [place] [address] 11/20/2024 [place] Assessments Encounter Date Diagnosis [...] cleared for a potential lung transplant in [place]. As such I will plan to arrange this for him. He will need to stop Coumadin for 5 days prior to the procedure and obtain a prescription and instructions for Lovenox use from Dr. Calabrese. We will also need to obtain clearance and some records from both Dr. Da Silva and the lung transplant clinic at [facility]. Full consent has been obtained [...] cleared for a potential lung transplant in [place]. As such I will plan to arrange this for him. He will need to stop Coumadin for 5 days prior to the procedure and obtain a prescription and instructions for Lovenox use from Dr. Calabrese. We will also need to obtain clearance and some records from both Dr. Da Silva and the lung transplant clinic at [facility]. Full consent has been obtained [...] cleared for a potential lung transplant in [place]. As such I will plan to arrange this for him. He will need to stop Coumadin for 5 days prior to the procedure and obtain a prescription and instructions for Lovenox use from Dr. Calabrese. We will also need to obtain clearance and some records from both Dr. Da Silva and the lung transplant clinic at [facility]. Full consent has been obtained [...] Insured Coverage Start Date Coverage End Date [facility] [employer] [facility] [address] [address] [place], [place] [id number] NELLY OWENS Self - patient is the insured MEDICAID OF [facility] [address] [place] [address] [phone] [id number] NELLY OWENS Self - patient is the insured Medical (General) History Medical History History ICD Code Denies MS,DM,CVA,Lung disease,renal dise ase Pulmonary Sarcoidosis--it has also [...] being followed by Dr. Da Silva at [facility] Pulmonary Department and the lung transplant center at [facility] in [place].He is currently on 2 L of nasal cannula 24 hours a day as of the August 2024 office visit. Surgical History Surgery Date(Month/Year) Hernia repair--umbilical 2017
== END 2024-12-04 11:48 | disposition home or self-care (01) ==
LOC: HO.ACS 11:31
PROVIDERS: PCP Internal Medicine; Visit Provider Internal Medicine Medical Oncology
DX: Z79.01 Long term (current) use of anticoagulants (principal)

== ENCOUNTER → 2024-12-04 11:31 | Outpatient (BNVA) | payer OTHER, SELFPAY | PROVIDERS: PCP Internal Medicine; Visit Provider Internal Medicine Medical Oncology | DX: I82.402 Acute embolism and thrombosis of unspecified deep veins of left lower extremity (principal); Z79.01 Long term (current) use of anticoagulants; Z51.81 Encounter for therapeutic drug level monitoring | CPT/HCPCS: 85610; 99211 ==

== ENCOUNTER 2024-12-11 08:05 | Outpatient (AMB) | payer OTHER, SELFPAY ==
--- OUTSIDE RECORDS SUMMARY | 2024-12-11 08:09 | XMS_ITS | Encounter Summary ---
Author Organization [facility] Address [address] [place] [address] Phone Care Team Providers Care Nursing Administrator Name Role Phone Jaz Myers MD Primary Care Provider [phone] Radha Fox MD, S Unavailable Devyn Jay MD Unavailable [phone] Encounter Details Date Type Department Care Team (Late st Contact Info) Description 11/17/2023 Procedure Pass [facility] Endoscopy Admitting Dept Virtual Department [address] [place] [address] Social History Tobacco Use Types Packs/Day Years [...] documented as of this encounter Care Teams Nursing Administrator Relationship Specialty Start Date End Date Po, Jaz Whalen MD [address] [place] [id number] PCP - General Internal Medicine 11/16/23 Radha Fox MD, S [address] [place] [address] [address] [place] [address] [email or web address] Referring Physician Pulmonary Disease 06/14/24 Devyn Jay MD [address] [place] [address] [address] [place] [address] Pulmonary Disease 09/08/24 documented as of this encounter Additional Source Comments The information contained in this document represents components of the legal health record. It is not the complete legal health record.[facility]
--- OUTSIDE RECORDS SUMMARY | 2024-12-11 08:10 | XMS_ITS | Patient Health Record ---
Author Organization [facility] Address [address] [place] [address] Care Team Providers Care Laborer Driver Name Role Phone Jaz Myers MD Primary Care Provider Mason Castro [phone] Allergies No Known Allergies Results Component Value Reference Range Notes Prothrombin Time INR Reviewed date:11/28/2024 10:12:07 AM Interpretation: Performing Lab:[facility], [address] [place] [phone] Notes/Report: Prothrombin Time 11.8 10.9-12.4 [employer] [...] (Not yet reviewed by provider) Interpretation: Performing Lab:[facility], [address] [place] [phone] Notes/Report: Reason For Referral No Information Medications [...] Colon cancer screening (Z12.11) Active confirmed Problem 54257754 Rectal bleeding (K62.5) Active confirmed Problem 123434143 History of adenomatous polyp of colon (Z86.010) Active confirmed Problem Preprocedural examination (373048028414957) Preprocedural examination (Z01.818) Active confirmed Problem Diverticulosis of colon (879123513) Diverticulosis of colon (K57.30) Active confirmed Vital Signs Temperature 97.8 degrees Fahrenheit 09/06/2024 Blood pressure diastolic 01 mm Hg 09/06/2024 Height 64 in 09/06/2024 Blood pressure systolic 001 mm Hg 09/06/2024 Weight 136 lbs 09/06/2024 BMI 23.34 kg/m2 09/06/2024 Procedures Procedure Date Ordered Date Performed Result Body Sit e COLONOSCOPY 09/06/2024 N/A Encounters Encounter Location Date Provider Diagnosis [facility] [place] [address] [place], [place] [id number] 11/27/2024 Mason Rock [facility] [address] [place] [address] 09/06/2024 Mason Rock History of adenomato us polyp of colon Z86.010 ; Preprocedural examination Z01.818 and Colon cancer screening Z12.11 [facility] [address] [place] [address] 12/01/2024 Mason Rock [facility] [address] [place] [address] 09/06/2024 Mason Rock [facility] [address] [place] [address] 11/20/2024 Mason Rock Assessments Encounter Date Diagnosis [...] cleared for a potential lung transplant in [place]. As such I will plan to arrange [...] cleared for a potential lung transplant in [place]. As such I will plan to arrange [...] cleared for a potential lung transplant in [place]. As such I will plan to arrange [...] Insured Coverage Start Date Coverage End Date [facility] [address] [address] [place], [place] [id number] [id number] MAX OWENS Self - patient is the insured MEDICAID OF [facility] [employer] [address] [place] [address] [phone] [id number] MAX OWENS Self - patient is the insured Medical (General) History Medical History History ICD Code Denies NC,DM,CVA,Lung disease,renal dise ase Pulmonary Sarcoidosis--it has also [...] being [place]. [place] Silva [place] [facility] [place] [facility] center at [facility] in [place].He is currently on 2 L of nasal cannula 24 hours a day as of the August 2024 office visit. Surgical History Surgery Date(Month/Year) Hernia repair--umbilical 2017
[2024-12-11 08:19] LABS: Prothrombin Time Whole Bld POC 31.2 sec (11.1-13.5); ~PT, ~INR - Anti Coag Clinic 2.6 (0.9-1.1)
--- NOTE | 2024-12-11 08:23 | MHC.OFFVISCO ---
Intake Intake Visit Reasons: Anticoagulation Allergies No Known Allergies (No Known Allergies*) Allergy (Verified 12/11/24 08:15) Medication List - Last Reconciled 12/11/24 by Mami Springer RN albuterol sulfate 90 mcg/actuation 2 inhalations inhalation Q6H PRN 30 days calcium citrate 1,000 mg PO DAILY cetirizine 10 mg PO DAILY PRN chlorpheniramine maleate (Allergy Relief (chlorpheniramine)) 4 mg PO Q6H PRN cholecalciferol (vitamin D3) (Vitamin D3) 100 mcg (2 x 50 mcg (2,000 unit)) PO DAILY 30 days clotrimazole 1% 1 appl topical BID 4 weeks enoxaparin (Lovenox) 60 mg See Protocol subcut Q12H infliximab (Remicade) 336 mg IV Q4W 12 months nintedanib (Ofev) 150 mg PO Q12H 30 days omeprazole 40 mg PO DAILY Oxygen Home Use As directed prednisolone acetate 1% (Pred Forte) 1 drp ophthalmic (eye) BEDTIME prednisone 20 mg PO QAM warfarin (Jantoven) 4 mg See Protocol PO BEDTIME Nursing Note INR: 2.6 in therapeutic range Medications and supplements reviewed No changes in health, diet, medications, or supplements, Denies any signs and symptoms of bleeding or bruising or clotting. Bleeding, bruising, clotting discussed Nutritional guidance given Dose: 4mg X 5 days and 2mg X 2 days (Sun & Thurs) F/U INR: 1 week Patient verbalizes understanding of instructions given Anti-Coag Initial Assessment Social Hx Patient Tobacco Use Status: Never used Tobacco alcohol intake: current Alcohol intake frequency: does not drink Coding Level of Care Code Est Patient Level 1 Diagnoses Current use of anticoagulant therapy Z79.01 Results AMB INR Fingerstick AMB INR Fingerstick 2.6 Last Edit by Mami Springer RN on 12/11/24 08:21 interface delay Assessment & Plan Assessment & Plan (1) Current use of anticoagulant therapy: Code(s): Z79.01 - nursing home (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
== END 2024-12-11 08:26 | disposition home or self-care (01) ==
LOC: HO.ACS 08:05
PROVIDERS: PCP Internal Medicine; Visit Provider Internal Medicine Medical Oncology
DX: Z79.01 Long term (current) use of anticoagulants (principal)

== ENCOUNTER → 2024-12-11 08:05 | Outpatient (BNVA) | payer OTHER, SELFPAY | PROVIDERS: PCP Internal Medicine; Visit Provider Internal Medicine Medical Oncology | DX: Z79.01 Long term (current) use of anticoagulants (principal) | CPT/HCPCS: 85610; 99211 ==

== ENCOUNTER 2024-12-18 08:26 | Outpatient (AMB) | payer OTHER, SELFPAY ==
[2024-12-18 08:30] VITALS: BP 138/70; PULSE 102; O2SAT 92; BMI 23.6
--- NOTE | 2024-12-18 08:30 | A.OFFVIS_ITS ---
Vital Signs 12/18/24 08:30 Height 5 ft 4 in Weight 137 lb 12.623 oz BMI 23.6 BP 138/70 Blood Pressure Location Lt brachial Position Sitting Pulse 102 H Pulse Oximetry (%) 92 Oxygen Delivery Method Nasal Cannula Oxygen Flow Rate 3 Intake Visit Reasons: pulm fibrosis Control Clerk Food And Beverage Required: No Accompanied by: Self / Same As Patient Allergies No Known Allergies (No Known Allergies*) Allergy (Verified 12/18/24 09:07) HPI Comments Details: The patient is a 59-year-old gentleman with a known history of sarcoidosis. 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 At that point he also had a rash on the face. The patient was noted to have lupus pernio. He did have a biopsy-proven sarcoidosis. The patient did have a CT scan of the chest demonstrating pulmonary nodules and also lymphadenopathy. Although the diagnosis of sarcoid was made based on the skin biopsy. I do not have those results is all per the patient. The patient then was followed by a local order desk caller. He was placed on prednisone. Ultimately more recently than that the patient start having worsening shortness of breath and cough. Was then placed on methotrexate up to 8 tablets of the 2.5 mg weekly. However after he started the methotrexate he has been noticing worsening cough and shortness of breath. He did have a recent chest x-ray done at the [facility] which I personally reviewed. It appears that he has a chronically elevated right hemidiaphragm but now appears to have more hazy opacities bilaterally suggesting pneumonitis. I did compare that to his previous x-ray from October which she did not have the degree of pneumonitis as he has now. Therefore I am concerned that he is having some adverse effects of the methotrexate. Assess as far as I know the only involvement of the sarcoid has been his lungs his skin and also the uveitis. 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 It is likely that the thrombotic issues are also related to sarcoidosis. He denies any other involvement of any other end-organ. We did review his blood work his total bili is a little elevated and he has had issues with liver in the past. But is hard to know for sure if is related to sarcoid any other etiology. The patient complains that his cough is very significant. He had call the on-call physician was given Laith Kraus without any significant improvement. For now while we deal with his active sarcoid issue go ahead and give her some codeine cough syrup patient does use state Travis often at nighttime to make sure that he can stop coughing. 08/03/2022 the patient is here for a pulmonary follow-up visit. He still the same. He still complains of cough and some chest congestion. The mucus is yellowish and whitish in color. Vqdl-hn-yebiohiq severity. Did have worse at nighttime. The patient did switch over to mycophenolate from methotrexate. Seems to be tolerating it although still low dose of 100 mg twice a day. Was able to cut down the prednisone from 20 mg to 10 mg which is reassuring. Will continue to optimize his sarcoid therapy by increasing the mycophenolate to 1000 mg twice a day and also decreasing the prednisone some 0.5 mg. He also will going to go very slowly to make sure that he is able to decrease her dose effectively. We did review his CT scan of the chest demonstrating significant interstitial lung disease and pulmonary nodules when compared to his CT scan from 2014. He also had pulmonary function studies demonstrating a moderate restrictive ventilatory defect. In part he does have an elevated right hemidiaphragm that is resulting in diminished lung capacity. At this point will continue to maintain him on therapy to make sure that he does not have any progression of the scarring if is due to the sarcoidosis. 11/06/2022 the patient is here for a pulmonary follow-up visit. He continues with his ongoing chest congestion and cough. Moderate severity. Worse at nighttime. Has not responded to the respiratory therapy or the immunosuppressive therapy. He does bring up chest congestion although have been able to get a culture. We did review his CT scan of the chest. The patient does have normal findings. Based on his ongoing cough and his lack of response to his current therapy will plan to perform bronchoscopy. He does have pertinent S deficiency with hypercoagulable state and currently on Coumadin. I will be working with the Coumadin clinic in order to get him ready for the procedure. 01/29/2023 the patient is here for apulmonary follow up visit. Complaining that the cough is no better. Moderate in severity. Patient did have significant evidence of bronchomalacia. This is likely contributing to his significant cough. He also had moderate mucoid secretions that were suction. Patient is cultures were all negative. His endobronchial biopsies were negative for any sarcoidosis. Unfortunate patient continues to cough. Explained to him that the issue is the collapsing of the airways. At this point will start him on CPT with the Acapella valve to help him clear secretions. The patient will continue with current respiratory therapy. He will start cough suppressant. 05/06/2023 the patient has a telehealth visit today. He has not recovering from a viral syndrome on home. He is feeling better. He continues on the prednisone 7.5 mg daily and also continues on the mycophenolate. Seems to be tolerating therapy well and his blood sugars have been okay. In regards of his respiratory symptoms he has been coughing a little more secondary to the viral syndrome her xcmo-es-jnqiqmci severity. Otherwise feels well he does need any additional therapies at this time. Will plan to repeat his CT scan in 3 months' time year from his last 1 to see the progression of his underlying nodular densities and interstitial lung disease. 08/13/2023 the patient is here for pulmonary follow-up visit. The patient continues have a cough. The cough is moderate severe. He is tried multiple me dications without any significant improvement. In regards of the sarcoidosis the patient has been on the chronic prednisone and also has been on mycophenolate 2 g a day. He is noticed also worsening dyspnea on exertion. Zajr-bd-nartzdou severity. He did have a CT scan of the chest which we personally reviewed. It appears it has interval worsening of the pulmonary fibrosis which is concerning. He is already on high dose of mycophenolate and on chronic prednisone. Will go ahead and give him a prednisone taper to see if we can improve the symptoms. In the meantime we talked about other alternative therapies such as Remicade. The patient is open to trying these medications. Will go ahead and request blood work to make sure that he can start the therapy as soon as possible. I also did offer him a 2nd opinion at the sarcoid Clinic at [facility]. However, the patient is concerned about the drive. Will continue to discuss that. Specially in view of the worsening fibrosis. We did go for 6 minute walk test the patient did desaturate down to 87% with activity on room air. Did qualify for a conserving device at 2 L pulse. Will go ahead and request a concentrator and portable oxygen concentrator through [facility] [employer]. 10/26/2023 the patient is here for pulmonary follow-up visit. Overall the patient has been doing well. He is still coughing though. Moderate severity. Denies any shortness of breath. He was switched over to Remicade because he continued to have progression of the interstitial lung disease even on high doses of the mycophenolate. He seems to be tolerating medication well infusions are going well without any adverse effects. Will plan to repeat an x-ray in the next few months to see if there is any progression. Although his respiratory e xam is indeed better this time. His cough is mainly in upper airway cough syndrome. Will try to treat him with Sudafed and also 1st generation antihistamines to see if we can settle down the cough. He is tried multiple other vxem-pmq-vqnmrza medications in prescription medication without any significant improvement. Follow-up in 3 months. 12/08/2023 the patient is here for hospital follow-up visit. The patient was developing worsening respiratory symptoms and he was admitted to [facility]. He had a CT scan of the chest there which I do not have available but the patient described it as rito out. Likely significant diffuse pneumonitis. The patient initially tested negative for COVID on the nasal swab but he did have a bronchoscopy that were positive for COVID. Ther efore he was treated for COVID pneumonitis and pneumonia. He was placed on oxygen. He is prednisone was increased from 7.5 2 higher amount. He was subsequently discharged on a prednisone taper. The patient is still having hard time breathing he is using oxygen. We did give him a portable oxygen concentrator to use after, but, the patient has had a hard time with it. Since that is working. We did call the DME so they can look at it. In the meantime we placed him on oxygen which did help. The patient is still working. He has hard time not working and therefore he needs to have the oxygen order to continue his working activities. He did have a chest x-ray today which I personally reviewed demonstrating still persistent elevation of the right hemidiaphragm although that is chronic interstitial changes which appeared to be chronic. And some degree of ill-defined opacities in the upper lung zones which is new but since be getting better. His baseline x-ray was not normal on the 1st place. He has been on Remicade. His next dose is sometime in January. Will follow-up in a couple weeks. The meantime he is going to increase the prednisone to 20 mg from his baseline 7.5 to try to decrease the inflammatory changes. 12/30/2023 the patient is here for a pulmonary follow-up visit. He is not feeling any better. He did go up to 20 mg of prednisone. He continues on the Remicade. The patient did have a chest x-ray demonstrating interval worsening of the interstitial lung disease primarily the left hemithorax where he was primarily preserved. He does have an elevated right hemidiaphragm. He has been having issues with a portable oxygen concentrator. He did have to go up to 4 L pulse which is fine with activity. He can keep it at 2 L at rest. We talked about deep breathing exercises to make sure that he maximize his the respiratory effort and gas exchange. In view of the worsening pulmonary fibrosis will be a good candidate for Ofev. I will send a prescription to the pharmacy once we get approval. In the meantime pulmonary rehabilitation will be keep. The patient has been on 20 mg of prednisone without any significant changes in his respiratory capacity. Therefore, will start tapering down to his baseline dose 7.5 mg. Will follow-up in 4-6 weeks. 01/31/2024 the patient is here for a pulmonary follow-up visit. The patient still struggling with his breathing. The portable oxygen concentrator is not holding him. We did do a walking oximetry and he actually needs 4 L continuous with activity to maintain a pulse ox of 89% and above. Therefore he understands that we need to switch his POC to regular oxygen tanks. Will request a trial so that we can carry the oxygen little bit better. He is having hard time working because of his oxygen needs in his increased dyspnea. Therefore, will go ahead and repeat his chest x-ray and PFTs see the degree of severity. But my suspicion is that the patient is unlikely going to be able to work with this degree of disease. He recently did start the Ofev to try to minimize the progression of the fibrosis. I hope that he can tolerate the adverse effects which included diarrhea. He will continue on the prednisone although he is cutting down slowly down to 7.5 mg. he also continues on the Remicade as previously prescribed for the sarcoidosis before the severe COVID infection. At this point the patient appears to have progressive disease and unfortunately he is not developing any significant improvement as of yet. When he returns in a couple months after his PFTs and chest x-ray we can better assess his degree of disease and potential prognosis. In the meantime will request the [employer] to change his oxygen in order for him to have adequate oxygenation and improve gas exchange. 03/27/2024 the patient is here for a pulmonary follow-up visit. Since we last spoke the patient was able to decrease the prednisone to 7.5 mg daily. in addition to that he continues on Remicade. Recently he was started on Ofev. Seems to be tolerating it just some episodes of diarrhea but the patient is adjusting well. He did undergo a recent chest x-ray which still shows significant interstitial lung disease and decreased lung volumes. Pretty similar to previous. And his PFTs again demonstrating significant restriction with also severe diffusion impairment. The patient be a great candidate for pulmonary rehabilitation at this time. saw him in the program he may need to have malaise since he is still working full-time. At this point is conditions pretty advanced. She understands that. Will go ahead and refer him [place] to see if any other medication adjustment could be provided for him to see if any improvements can be facilitated. But also because if not if he has any evidence of any progression he would also be a good candidate for lung transplantation evaluation. Therefore will refer him to [facility] in order to start the process. He still is in the oxygen although the oxygen tanks are very heavy for him to carry. I had him doing repeat conserving device trial. On 4 L pulse he was able to maintain a pulse ox of 90% He rather use the POC because of better portability outside of the home. will go ahead and try again. I will send a script to the [employer] to switch him again to the POC at least he knows what he can expect since he had been on 1 before. will continue to monitor his progress and will await the referral evaluation in [place]. 05/29/2024 The patient is here for a pulmonary follow up visit. He did have his evaluation in [place] and he was very happy with that visit. She will be starting pulmonary rehab soon. Now he is on 40mg of Prednisone and still on remicade. He continues to use oxygen, Will need to stay on continuous oxygen. We requested an oxygen cart for him. He will f/u with [place] with PFts and CT chest. In the meantime, he continues with dyspnea, moderate in severity. Also has a cough. We will continue the current therapy. Will need PCP prophylaxis if continues on high doses of prednisone. 08/17/2024 the patient is here for a pulmonary follow-up visit. He feels a little better although he still has a hard time breathing. Still on the oxygen supplementation. He has been able to cut down to 3 L. he continues on 40 mg of prednisone. He also continues on the Remicade. He has been noticing worsening cough. Typically nonproductive in nature. Could be an upper airway cough syndrome now going to the spring. His respiratory exam is reassuring. I did speak to his pulmonary team in [place] and they would like him to decrease prednisone down to 20 mg. Therefore we did come up with a regimen for decrease the medicine at this time. Will cut by 5 mg initially until he reaches 30 mg and then will cut down by 2.5 mg every 5-7 days symptoms down to 20 mg. He will continue with the rest of the therapy. When he comes back we will do another 6 minute walk test to see me qualifies for a conserving device again. In the meantime he is going to be seen the pulmonary hypertension specialist in [facility] and also will be starting the process of lung transplantation. He still taking it all in. He is moving forward with his testing. 09/15/2024 the patient is here for a pulmonary follow-up visit. The patient does have increasing dyspnea today. His heart rate is a little bit more elevated. He has been working hard of pulmonary rehabilitation. He has been using his oxygen between 2-3 L/min via nasal cannula and is been affecting beneficial. He is also working closely with [facility] regarding lung transplantation. He does need his colonoscopy in although additional procedures in order to be able to be listed. Right now he is scheduled to have a colonoscopy in November. I did send a message to see if we can do that sooner. Will go ahead and bridging with Lovenox. He will have to stop the Coumadin 5 days before start the Lovenox and also on the Lovenox and work with the Coumadin Clinic to be able to adjust that appropriately. In the meantime the patient will also need a procedure in [place] will send them the information was we have that available. He will continue with current respiratory therapy. He continues to wean slowly the prednisone which is reassuring. Will go ahead and get blood work today in an EKG as well. He will follow-up in 2-3 months. He has any issues prior to that he will call for an earlier assessment. 12/18/2024 the patient is here for a pulmonary follow-up visit. He is feeling tired lately. Has been a little bit more dyspneic with activity. He was able to decrease the prednisone down to 20 mg which is excellent. He continues on the Ofev continues to have some diarrhea. He was also having some blood per rectum related to some internal hemorrhoids. She was going to follow-up with surgery regarding getting them banded. Although his appointment was moved to a later date. He does take Coumadin for history of blood clots. Therefore he may have an issue with anemia. Will go ahead and should request a blood work and he can also start iron in the meantime. Seems to have some pale conjunctiva. The patient did have his colonoscopy and did have some biopsies showing some colitis but otherwise no evidence of any malignancy which is reassuring. He had his dental evaluation done and also has a cardiac evaluation completed. He has been able to do all the requirements for the lung transplant program. He has not heard yet from [place]. He is going to reach out sometime next week. In the meantime will release him information to them. He will continue with the current respiratory regimen continue with the current dose of prednisone of 20 mg. Will follow-up with the blood work requested today. He does have the oxygen the oxygen has been affecting beneficial. We had to switch him over to a larger tank because he was having issues with the portable oxygen concentrator. But now is having a lot of shoulder pain and he is doing better from the oxygenation so we would like to transition him back to the battery powered portable oxygen concentrator. Will send a request to his [employer] company at this time. [facility] Medical History Oxygen dependent Bleeding hemorrhoids Pneumonia due to COVID-19 virus Pulmonary fibrosis ILD (interstitial lung disease) Bronchomalacia Sarcoidosis Pulmonary nodules Obesity (BMI 30.0-34.9) LFT elevation Hyperkalemia Glaucoma BPH (benign prostatic hyperplasia) Vitamin D deficiency Hypercholesterolemia Protein S deficiency DVT (deep venous thrombosis) Thrombocytopenia Surgical History History of bronchoscopy History of right inguinal hernia repair Hx of lymph node biopsy Hx of colonoscopy History of umbilical hernia repair History of appendectomy History of sinus surgery Family History Mother No problems noted. Father Medical history unknown Daughter In good health Sister In good health Brother Lung cancer Social History Household Members: Significant Other Housing: House Are you a primary home care giver to a significant other at home: No Do you presently have visiting nurse or other home services: Yes (medical supply for O2) Alcohol intake: current Alcohol intake frequency: does not drink Comment: 3x a year 2 drinks Patient Tobacco Use Status: Never used Tobacco e-Cigarette/Vaping Use: Never Used Second Hand Smoke Exposure: No service: No Current occupational status: employed Cognitive needs: No Hearing needs: No Vision needs: Yes Review of Systems Const Denies chills, Denies fatigue, Denies fever(s), Denies weight gain and Denies weight loss Eyes Denies change in vision ENT Denies dizziness Card Denies chest pain, Denies leg edema, Denies lightheadedness, Reports palpitations, Reports dyspnea on exertion, Denies orthopnea and Denies other Resp Denies cough, Reports dyspnea on exertion and Denies wheezing GI Denies hematochezia and Denies change in stool character Musc Denies abnormal gait, Denies muscle weakness, Denies numbness, Denies radiating pain into limb and Denies tingling Skin/Breast Denies new lesions and Reports rash Neuro Denies abnormal gait, Denies dizziness, Denies numbness and Denies tingling Endo Denies fatigue and Reports palpitations Sina/Lymph Denies easy bruising and Denies lymphadenopathy Aller/Immun Denies wheezing Physical Exam Vital Signs: Last Vital Signs Pulse 102 H 12/18/24 08:30 BP 138/70 12/18/24 08:30 Pulse Ox 92 12/18/24 08:30 Oxygen Delivery Method Nasal Cannula 12/18/24 08:30 Oxygen Flow Rate 3 12/18/24 08:30 BMI result Body Mass Index 23.6 Const General: comfortable HEENT Head: Yes normocephalic Eyes General: appearance normal, both eyes and all related structures Neck Neck: Yes supple Chest Chest palpation & inspection: normal inspection of the chest Resp Effort & Inspection: normal respiratory effort Auscultation: diminished lung sounds Cardio Rate: tachycardic Rhythm: regular rhythm Heart sounds: S1 normal heart sound present and S2 normal heart sound present GI Auscultation: normal bowel sounds Skin General skin exam: no rashes or lesions noted Extrem General: Yes no clubbing, cyanosis or edema Results AMB INR Fingerstick AMB INR Fingerstick 2.1 Last Edit by Marcia Dave RN on 12/18/24 09:19 manual entry Results Reviewed Results Reviewed: CXR 11/2023-personally reviewed by me, interval worsening of pulmonary fibroisis Assessment & Plan Assessment & Plan (1) ILD (interstitial lung disease): Code(s): J84.9 - Interstitial pulmonary disease, unspecified Category: Medical (2) Chronic respiratory failure: Code(s): J96.10 - Chronic respiratory failure, unspecified whether with hypoxia or hypercapnia Category: Medical Qualifiers: Respiratory failure complication: hypoxia and hypercapnia Qualified Code(s): J96.11 - Chronic respiratory failure with hypoxia; J96.12 - Chronic respiratory failure with hypercapnia (3) Pulmonary fibrosis: Comment: 2011 Code(s): J84.10 - Pulmonary fibrosis, unspecified Category: Medical (4) Pulmonary nodules: Code(s): R91.8 - Other nonspecific abnormal finding of lung field Category: Medical (5) intermediate card tender systemic steroid user: Code(s): Z79.52 - intermediate card tender (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 of systemic steroids Category: Medical (6) Bronchomalacia: Code(s): J98.09 - Other diseases of bronchus, not elsewhere classified Category: Medical (7) Sarcoidosis: Comment: pulmonary-dx 2011-follows w/Dr. Da Silva ([facility])-on continuous O2 2L Code(s): D86.9 - Sarcoidosis, unspecified Category: Medical Plan oxygen 2l/pulse at rest and 4L/pulse with activity, requesting battery operated POC Prednisone 20mg continue Remicade continue OFEV due to he progression of the pulmonary fibrosis CPT with acapella valve Pulmonary rehab [facility] Pulmonary for evaluation, lung transplant evaluation Bloodwork cough therapy start Iron F/U 2-3 months Orders: Orders Basic Metabolic Panel Today J84.9 - Interstitial pulmonary disease, unspecified, J96.10 - Chronic respiratory failure, unspecified whether with hypoxia or hypercapnia, R05 - Cough, R91.8 - Other nonspecific abnormal finding of lung field Erythrocyte Sedimentation Rate Today J84.9 - Interstitial pulmonary disease, unspecified, J96.10 - Chronic respiratory failure, unspecified whether with hypoxia or hypercapnia, R05 - Cough, R91.8 - Other nonspecific abnormal finding of lung field TSH reflex Free T4 Today J84.9 - Interstitial pulmonary disease, unspecified, J96.10 - Chronic respiratory failure, unspecified whether with hypoxia or hypercapnia, R05 - Cough, R91.8 - Other nonspecific abnormal finding of lung field Ferritin Today R00.0 - Tachycardia, unspecified Complete Blood Count Auto Diff Today J84.9 - Interstitial pulmonary disease, unspecified, J96.10 - Chronic respiratory failure, unspecified whether with hypoxia or hypercapnia, R05 - Cough, R91.8 - Other nonspecific abnormal finding of lung field Venous Blood Gas Today J84.9 - Interstitial pulmonary disease, unspecified, J96.10 - Chronic respiratory failure, unspecified whether with hypoxia or hypercapnia, R05 - Cough, R91.8 - Other nonspecific abnormal finding of lung field Troponin-I High Sensitivity Today J84.9 - Interstitial pulmonary disease, unspecified, J96.10 - Chronic respiratory failure, unspecified whether with hypoxia or hypercapnia, R05 - Cough, R91.8 - Other nonspecific abnormal finding of lung field Liver Panel Today J84.9 - Interstitial pulmonary disease, unspecified, J96.10 - Chronic respiratory failure, unspecified whether with hypoxia or hypercapnia, R05 - Cough, R91.8 - Other nonspecific abnormal finding of lung field IRON PROFILE Today R00.0 - Tachycardia, unspecified Coding Level of Care Code Est Pt Level 5 (78388) Complex EM visit Add On G2211 Diagnoses ILD (interstitial lung disease) J84.9 Chronic respiratory failure with hypoxia and hypercapnia J96.11; J96.12 Respiratory failure complication: hypoxia and hypercapnia Pulmonary fibrosis J84.10 Pulmonary nodules R91.8 intermediate card tender systemic steroid user Z79.52 Bronchomalacia J98.09 Sarcoidosis D86.9 Time Spent (min) 45
--- OUTSIDE RECORDS SUMMARY | 2024-12-18 08:45 | XMS_ITS | Patient Health Record ---
Author Organization [facility] Address [address] [place] [address] Care Team Providers Care Foreign Food Specialty Cook Name Role Phone Jaz Myers MD Primary Care Provider Mason Castro [phone] Allergies No Known Allergies Results Component Value Reference Range Notes Prothrombin Time INR Reviewed date:11/28/2024 10:12:07 AM Interpretation: Performing Lab:[facility], [address] [place] [id number] Notes/Report: Prothrombin Time 11.8 10.9-12.4 SEC INTERNATIONAL [...] (Not yet reviewed by provider) Interpretation: Performing Lab:[facility], [address] [place] [phone] Notes/Report: Reason For Referral No Information Medications [...] Colon cancer screening (Z12.11) Active confirmed Problem 98532218 Rectal bleeding (K62.5) Active confirmed Problem 833015264 History of adenomatous polyp of colon (Z86.010) Active confirmed Problem Preprocedural examination (027842150853428) Preprocedural examination (Z01.818) Active confirmed Problem Diverticulosis of colon (851032368) Diverticulosis of colon (K57.30) Active confirmed Vital Signs Temperature 97.8 degrees Fahrenheit 09/06/2024 Blood pressure diastolic 01 mm Hg 09/06/2024 Height 64 in 09/06/2024 Blood pressure systolic 001 mm Hg 09/06/2024 Weight 136 lbs 09/06/2024 BMI 23.34 kg/m2 09/06/2024 Procedures Procedure Date Ordered Date Performed Result Body Sit e COLONOSCOPY 09/06/2024 N/A Encounters Encounter Location Date Provider Diagnosis [facility] Outpatient [address] [place], [place] [id number] 11/27/2024 Mason Rock [facility] [address] [place] [address] 09/06/2024 Mason Rock History of adenomato us polyp of colon Z86.010 ; Preprocedural examination Z01.818 and Colon cancer screening Z12.11 [facility] [address] [place] [address] 12/01/2024 Mason Rock [facility] [address] [place] [address] 09/06/2024 Mason Rock [facility] [address] [place] [address] 11/20/2024 Mason Rock Assessments Encounter Date Diagnosis [...] cleared for a potential lung transplant in [place]. As such I will plan to arrange this for him. He will need to stop Coumadin for 5 days prior to the procedure and obtain a prescription and instructions for Lovenox use from Dr. Calabrese. We will also need to obtain clearance and some records from both Dr. Da Silva and the lung transplant clinic at [facility]. Full consent has been obtained from Nelly [...] cleared for a potential lung transplant in [place]. As such I will plan to arrange this for him. He will need to stop Coumadin for 5 days prior to the procedure and obtain a prescription and instructions for Lovenox use from Dr. Calabrese. We will also need to obtain clearance and some records from both Dr. Da Silva and the lung transplant clinic at [facility]. Full consent has been obtained from Nelly [...] cleared for a potential lung transplant in [place]. As such I will plan to arrange this for him. He will need to stop Coumadin for 5 days prior to the procedure and obtain a prescription and instructions for Lovenox use from Dr. Calabrese. We will also need to obtain clearance and some records from both Dr. Da Silva and the lung transplant clinic at [facility]. Full consent has been obtained from Nelly [...] Insured Coverage Start Date Coverage End Date [facility] [address] [address] [place], [place] [id number] NELLY OWENS Self - patient is the insured MEDICAID OF [facility] [address] [place] [address] [phone] [id number] NELLY OWENS Self - patient is the [...] being followed by Dr. Da Silva at [facility] Pulmonary Department and the lung transplant center at [facility] in [place].He is currently on 2 L of nasal cannula 24 hours a day as of the August 2024 office visit. Surgical History Surgery Date(Month/Year) Hernia repair--umbilical 2017
--- OUTSIDE RECORDS SUMMARY | 2024-12-18 08:45 | XMS_ITS | Encounter Summary ---
Author Organization [facility] Address [address] [place] [address] Phone Care Team Providers Care Social Service Coordinator Name Role Phone Jaz Myers MD Primary Care Provider [phone] Radha Fox MD, S Unavailable Devyn Jay MD Unavailable [phone] Encounter Details Date Type Department Care Team (Late st Contact Info) Description 11/17/2023 Procedure Pass [facility] Endoscopy Admitting Dept Virtual Department [address] [place] [address] Social History Tobacco Use Types Packs/Day Years [...] documented as of this encounter Care Teams Social Service Coordinator Relationship Specialty Start Date End Date Po, Jaz Whalen MD [address] [place] [address] PCP - General Internal Medicine 11/16/23 Radha Fox MD, S [address] [place] [address] [address] [place] [address] [email or web address] Referring Physician Pulmonary Disease 06/14/24 Devyn Jay MD [address] [place] [address] [address] [place] [address] Pulmonary Disease 09/08/24 documented as of this encounter Additional Source Comments The information contained in this document represents components of the legal health record. It is not the complete legal health record.[facility]
== END 2024-12-18 08:57 | disposition home or self-care (01) ==
LOC: HO.HPS 08:27
PROVIDERS: PCP Internal Medicine; Visit Provider Hospitalist
DX: J84.9 Interstitial pulmonary disease, unspecified (principal); J96.11 Chronic respiratory failure with hypoxia; J96.12 Chronic respiratory failure with hypercapnia; J84.10 Pulmonary fibrosis, unspecified; R91.8 Other nonspecific abnormal finding of lung field; Z79.52 Long term (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 of systemic steroids; J98.09 Other diseases of bronchus, not elsewhere classified; D86.9 Sarcoidosis, unspecified
CPT/HCPCS: 99215

== ENCOUNTER 2024-12-18 08:26 | Outpatient (REF) | payer OTHER, SELFPAY ==
[2024-12-18 09:34] LABS: MANUAL DIFF FLAG NO
[2024-12-18 09:42] LABS: Venous Blood Gas Refer to POC result
[2024-12-18 09:43] LABS: VBG HCO3 36 mmol/L (22-26); VBG O2 % Saturation 39.0 %
[2024-12-18 10:21] LABS: Hematocrit 35.0 % (42.0-52.0); Hemoglobin 11.0 g/dl (14.0-18.0); Imm Gran Abs Auto 0.03 X10*3/uL (0.00-0.03); Imm Gran Pct Auto 0.3 % (0.0-0.4); Lymphocytes Absolute Auto 1.9 X10*3/uL (1.2-4.9); Mean Corpuscular HGB Conc 31.4 g/dl (31.0-36.0); Mean Corpuscular Hemoglobin 27.5 pg (27.0-33.0); Mean Corpuscular Volume 87.5 fL (80.0-98.0); NRBC Abs Auto 0.000 X10*3/uL (0.0-0.012); NRBC Pct Auto 0.0 /100WBC (0.0-0.2); Platelet Count 231 X10*3/uL (160-400); Red Blood Count 4.00 X10*6/uL (4.60-5.80); White Blood Count 10.8 X10*3/uL (4.8-10.8)
[2024-12-18 11:03] LABS: Alanine Aminotransferase 29 U/L (0-40); Albumin Level 4.1 g/dL (3.5-5.0); Alkaline Phosphatase 72 U/L (39-117); Anion Gap 12 (12-20); Aspartate Amino Transferase 25 U/L (5-37); Blood Urea Nitrogen 12 mg/dL (9-16); Calcium 9.4 mg/dL (8.4-10.2); Carbon Dioxide 33 mmol/L (22-29); Chloride 106 mmol/L (96-108); Estimated Glomerular Filt Rate > 60; Iron 22 mcg/dL (45-160); Percent Iron Saturation 7 % (15-50); Potassium 4.7 mmol/L (3.3-5.1); Sodium 146 mmol/L (135-145); Total Iron Binding Capacity 321 mcg/dL (228-428); Total Protein 7.1 g/dL (6.5-8.0); Unsaturated Iron Binding 299 ug/dL
[2024-12-18 11:04] LABS: Troponin-I High Sensitivity < 2.7 ng/L (<3.5-35.0)
[2024-12-18 11:21] LABS: Ferritin 17 ng/mL (20-250)
== END 2024-12-18 08:27 | disposition home or self-care (01) ==
LOC: HO.LAB 08:26
PROVIDERS: PCP Internal Medicine; Visit Provider Hospitalist
DX: J96.11 Chronic respiratory failure with hypoxia (principal); J96.12 Chronic respiratory failure with hypercapnia; J84.9 Interstitial pulmonary disease, unspecified; J84.10 Pulmonary fibrosis, unspecified; J98.09 Other diseases of bronchus, not elsewhere classified; D86.9 Sarcoidosis, unspecified; R91.8 Other nonspecific abnormal finding of lung field; R05.9 Cough, unspecified; R00.0 Tachycardia, unspecified; Z79.52 Long term (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 of systemic steroids
CPT/HCPCS: 36415; 80048; 80076; 82728; 82803; 83540; 84443; 84484; 85025; 85610; 85652; 99211; 99212

== ENCOUNTER 2024-12-18 09:02 | Outpatient (AMB) | payer OTHER, SELFPAY ==
--- NOTE | 2024-12-18 09:16 | MHC.OFFVISCO ---
Intake Intake Visit Reasons: Anticoagulation Allergies No Known Allergies (No Known Allergies*) Allergy (Verified 12/18/24 09:07) Medication List - Last Reconciled 12/18/24 by Marcia Dave RN albuterol sulfate 90 mcg/actuation 2 inhalations inhalation Q6H PRN 30 days calcium citrate 1,000 mg PO DAILY cetirizine 10 mg PO DAILY PRN chlorpheniramine maleate (Allergy Relief (chlorpheniramine)) 4 mg PO Q6H PRN cholecalciferol (vitamin D3) (Vitamin D3) 100 mcg (2 x 50 mcg (2,000 unit)) PO DAILY 30 days clotrimazole 1% 1 appl topical BID 4 weeks enoxaparin (Lovenox) 60 mg See Protocol subcut Q12H infliximab (Remicade) 336 mg IV Q4W 12 months nintedanib (Ofev) 150 mg PO Q12H 30 days omeprazole 40 mg PO DAILY Oxygen Home Use As directed prednisolone acetate 1% (Pred Forte) 1 drp ophthalmic (eye) BEDTIME prednisone 20 mg PO QAM warfarin (Jantoven) 4 mg See Protocol PO BEDTIME Nursing Note INR: 2.1 in therapeutic range Medications and supplements reviewed * Pt states he had hemorrhoidal bleeding few days ago, has a hemorrhoidal banding procedure schedule 01/24/25. No bleeding today *Pt states he feels tiered and a little more sob, appears slightly pale in lips and gums and nail beds, eyelids pink, he states he has lab work ordered for today - he ate this am - he may do some blood work today and the rest tomorrow if fasting was required. Denies any signs and symptoms of bleeding or bruising or clotting. Bleeding, bruising, clotting discussed Nutritional guidance given - cont to eat a mix of fruits and vegetables, enc to have a vit c food or fluids when consuming meat or greens to help absorb the iron from them Dose: keep same wafarin dose 2mg x 2 dys/ 4mg x 5 days F/U INR: weekly for now Call with any health or med changes Patient verbalizes understanding of instructions given Anti-Coag Initial Assessment Social Hx Patient Tobacco Use Status: Never used Tobacco alcohol intake: current Alcohol intake frequency: does not drink Coding Level of Care Code Est Patient Level 1 Diagnoses Current use of anticoagulant therapy Z79.01 Results AMB INR Fingerstick AMB INR Fingerstick 2.1 Last Edit by Marcia Dave RN on 12/18/24 09:19 manual entry Assessment & Plan Assessment & Plan (1) Current use of anticoagulant therapy: Code(s): Z79.01 - director long term care (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
[2024-12-18 09:27] LABS: Prothrombin Time Whole Bld POC 25.5 sec (11.1-13.5); ~PT, ~INR - Anti Coag Clinic 2.1 (0.9-1.1)
== END 2024-12-18 09:37 | disposition home or self-care (01) ==
LOC: HO.ACS 09:02
PROVIDERS: PCP Internal Medicine; Visit Provider Internal Medicine Medical Oncology
DX: Z79.01 Long term (current) use of anticoagulants (principal)

== ENCOUNTER 2024-12-25 08:02 | Outpatient (AMB) | payer OTHER, SELFPAY ==
--- OUTSIDE RECORDS SUMMARY | 2024-12-25 08:04 | XMS_ITS | Patient Health Record ---
Author Organization [facility] Address [address] [place] [address] Care Team Providers Care Administrator Pesticide Name Role Phone Jaz Myers MD Primary Care Provider Mason Castro [phone] Allergies No Known Allergies Results Component Value Reference Range Notes Prothrombin Time INR Reviewed date:11/28/2024 10:12:07 AM Interpretation: Performing Lab:[facility], [address] [place] [phone] Notes/Report: Prothrombin Time 11.8 10.9-12.4 SEC INTERNATIONAL [...] (Not yet reviewed by provider) Interpretation: Performing Lab:[facility], [address] [place] [phone] Notes/Report: Reason For Referral No Information Medications [...] Colon cancer screening (Z12.11) Active confirmed Problem 24257783 Rectal bleeding (K62.5) Active confirmed Problem 941600570 History of adenomatous polyp of colon (Z86.010) Active confirmed Problem Preprocedural examination (347893463230663) Preprocedural examination (Z01.818) Active confirmed Problem Diverticulosis of colon (218431813) Diverticulosis of colon (K57.30) Active confirmed Vital Signs Temperature 97.8 degrees Fahrenheit 09/06/2024 Blood pressure diastolic 01 mm Hg 09/06/2024 Height 64 in 09/06/2024 Blood pressure systolic 001 mm Hg 09/06/2024 Weight 136 lbs 09/06/2024 BMI 23.34 kg/m2 09/06/2024 Procedures Procedure Date Ordered Date Performed Result Body Sit e COLONOSCOPY 09/06/2024 N/A Encounters Encounter Location Date Provider Diagnosis [facility] Outpatient [address] [place], [place] [id number] 11/27/2024 Mason Rock [facility] [address] [place] [address] 09/06/2024 Mason Rock History of adenomato us polyp of colon Z86.010 ; Preprocedural examination Z01.818 and Colon cancer screening Z12.11 [facility] [address] [place] [address] 12/01/2024 Mason Rock [facility] [address] [place] [address] 09/06/2024 Mason Rock [facility] [address] [place] [address] 11/20/2024 Mason Rock Assessments Encounter Date Diagnosis [...] cleared for a potential lung transplant in [place]. As such I will plan to arrange this for him. He will need to stop Coumadin for 5 days prior to the procedure and obtain a prescription and instructions for Lovenox use from Dr. Calabrese. We will also need to obtain clearance and some records from both Dr. Da Silva and the lung transplant clinic at [facility]. Full consent has been obtained from Nelly [...] cleared for a potential lung transplant in [place]. As such I will plan to arrange this for him. He will need to stop Coumadin for 5 days prior to the procedure and obtain a prescription and instructions for Lovenox use from Dr. Calabrese. We will also need to obtain clearance and some records from both Dr. Da Silva and the lung transplant clinic at [facility]. Full consent has been obtained from Nelly [...] cleared for a potential lung transplant in [place]. As such I will plan to arrange this for him. He will need to stop Coumadin for 5 days prior to the procedure and obtain a prescription and instructions for Lovenox use from Dr. Calabrese. We will also need to obtain clearance and some records from both Dr. Da Silva and the lung transplant clinic at [facility]. Full consent has been obtained from Nelly [...] Insured Coverage Start Date Coverage End Date [facility] [address] [address] [place], [place] [id number] NELLY OWENS Self - patient is the insured MEDICAID OF [facility] [address] [place] [address] [phone] [id number] NELLY OWENS Self - patient is the [...] being followed by Dr. Da Silva at [facility] Pulmonary Department and the lung transplant center at [facility] in [place].He is currently on 2 L of nasal cannula 24 hours a day as of the August 2024 office visit. Surgical History Surgery Date(Month/Year) Hernia repair--umbilical 2017
--- OUTSIDE RECORDS SUMMARY | 2024-12-25 08:04 | XMS_ITS | Encounter Summary ---
Author Organization [facility] Address [address] [place] [address] Phone Care Team Providers Care Flasher Adjuster Name Role Phone Jaz Myers MD Primary Care Provider [phone] Radha Fox MD, S Unavailable Devyn Jay MD Unavailable [phone] Encounter Details Date Type Department Care Team (Late st Contact Info) Description 11/17/2023 Procedure Pass [facility] Endoscopy Admitting Dept Virtual Department [address] [place] [address] Social History Tobacco Use Types Packs/Day Years [...] documented as of this encounter Care Teams Flasher Adjuster Relationship Specialty Start Date End Date Po, Jaz Whalen MD [address] [place] [address] PCP - General Internal Medicine 11/16/23 Radha Fox MD, S [address] [place] [address] [address] [place] [address] [email or web address] Referring Physician Pulmonary Disease 06/14/24 Devyn Jay MD [address] [place] [address] [address] [place] [address] Pulmonary Disease 09/08/24 documented as of this encounter Additional Source Comments The information contained in this document represents components of the legal health record. It is not the complete legal health record.[facility]
--- NOTE | 2024-12-25 08:12 | MHC.OFFVISCO ---
Intake Intake Visit Reasons: Anticoagulation Allergies No Known Allergies (No Known Allergies*) Allergy (Verified 12/25/24 08:04) Medication List - Last Reconciled 12/25/24 by Robyn Ulloa RN albuterol sulfate 90 mcg/actuation 2 inhalations inhalation Q6H PRN 30 days calcium citrate 1,000 mg PO DAILY cetirizine 10 mg PO DAILY PRN chlorpheniramine maleate (Allergy Relief (chlorpheniramine)) 4 mg PO Q6H PRN cholecalciferol (vitamin D3) (Vitamin D3) 100 mcg (2 x 50 mcg (2,000 unit)) PO DAILY 30 days clotrimazole 1% 1 appl topical BID 4 weeks enoxaparin (Lovenox) 60 mg See Protocol subcut Q12H ferrous sulfate (Feosol) 325 mg PO BID 30 days infliximab (Remicade) 336 mg IV Q4W 12 months nintedanib (Ofev) 150 mg PO Q12H 30 days omeprazole 40 mg PO DAILY Oxygen Home Use As directed prednisolone acetate 1% (Pred Forte) 1 drp ophthalmic (eye) BEDTIME prednisone 20 mg PO QAM warfarin (Jantoven) 4 mg See Protocol PO BEDTIME Nursing Note INR: 2.0- in therapeutic range of 2-3 Medications and supplements reviewed now on ferrous sulfate bid, no interaction with warfarin per micromedex pt states recent labs per md. pt on cont oxygen, no SOB at this time No changes in health, diet, medications, or supplements, Denies any signs and symptoms of bleeding or bruising or clotting. Bleeding, bruising, clotting discussed - pt cont with hemorrhoidal bleeding occ after bowel movement Nutritional guidance given - no greens for 2 days Dose: 2mg x 2, 4mg x 5 F/U INR: pt req 1 week Patient verbalizes understanding of instructions given pt scheduled for hemorrhoidal banding on 01/24/25- he states no hold on warfarin per md Anti-Coag Initial Assessment Social Hx Patient Tobacco Use Status: Never used Tobacco alcohol intake: current Alcohol intake frequency: does not drink Coding Level of Care Code Est Patient Level 1 Diagnoses Current use of anticoagulant therapy Z79.01 Results AMB INR Fingerstick AMB INR Fingerstick 2.0 Last Edit by Robyn Ulloa RN on 12/25/24 08:15 interface delay Assessment & Plan Assessment & Plan (1) Current use of anticoagulant therapy: Code(s): Z79.01 - joint terminal attack controller (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 Medications: Discontinued enoxaparin (Lovenox) Use as directed Discontinued Reason: Patient no longer taking 60 mg See Protocol subcut Q12H 30 mL 0RF
[2024-12-25 08:20] LABS: Prothrombin Time Whole Bld POC 24.1 sec (11.1-13.5); ~PT, ~INR - Anti Coag Clinic 2.0 (0.9-1.1)
== END 2024-12-25 08:22 | disposition home or self-care (01) ==
LOC: HO.ACS 08:02
PROVIDERS: PCP Internal Medicine; Visit Provider Internal Medicine Medical Oncology
DX: Z79.01 Long term (current) use of anticoagulants (principal)

== ENCOUNTER → 2024-12-25 08:02 | Outpatient (BNVA) | payer OTHER, SELFPAY | PROVIDERS: PCP Internal Medicine; Visit Provider Internal Medicine Medical Oncology | DX: I82.402 Acute embolism and thrombosis of unspecified deep veins of left lower extremity (principal); Z79.01 Long term (current) use of anticoagulants; Z51.81 Encounter for therapeutic drug level monitoring | CPT/HCPCS: 85610; 99211 ==

== ENCOUNTER 2025-01-04 07:59 | Outpatient (AMB) | payer OTHER, SELFPAY ==
--- OUTSIDE RECORDS SUMMARY | 2024-11-27 07:40 | XMS_ITS ---
Author Organization [facility] Address [address] [place] [address] Care Team Providers Care Nursing Scheduler Name Role Phone Jaz Myers MD Primary Care Provider Mason Castro [phone] REASON FOR VISIT screening colonoscopy Encounters Encounter Location Date Provider Diagnosis [facility] [place] [address] [place] [id number] 11/27/2024 Mason Rock Plan Of Treatment No Information Progress Notes * NELLY OWENS EDOB:[birth year] (59 yo M)Acc No.[id number]:11/27/2024 COLON WITH MAC Patient: NELLY BRANHAM Provider: Vinicio Rock MD :1965 A ge:59 Y S ex:Male Date:11/27/2024 Address:[address] [place], [place] [id number] Pcp:Jaz Myers MD Subjective: * Chief Complaints: [...] Date: 11/27/2024 Generated for Castilloi ng/Fadaniellag/eTransmitting on: 01/04/2025 08:05 AM EDT
--- OUTSIDE RECORDS SUMMARY | 2024-12-01 15:12 | XMS_ITS ---
Author Organization [facility] Address [address] [place] [address] Care Team Providers Care Purchasing Intern Name Role Phone Jaz Myers MD Primary Care Provider Mason Castro [phone] REASON FOR VISIT ? need to treat colitis on 11/27 colon Encounters Encounter Location Date Provider Diagnosis [facility] [address] [place] [address] 12/01/2024 [place] Plan Of Treatment No Information Progress Notes * NELLY OWENS EDOB:[birth year] (59 yo M)Acc No.[id number]:12/01/2024 Patient: NELLY BRANHAM :1965 A ge:59 Y S ex:Male Address:[address] [place] [address], [address] Subjective: * Chief Complaints: * ? need to treat colitis on 11/27 colon * Medical History: * Surgical History: * Hospitalization/Major Diagno stic Procedure: * Medications: Objective: * Vitals: * Physical Examination: Assessment: Plan: * Treatment: * Procedure Codes: * * Date:
--- OUTSIDE RECORDS SUMMARY | 2025-01-04 08:05 | XMS_ITS | Encounter Summary ---
Author Organization [facility] Address [address] [facility] [address] [place] [address] Phone Care Team Providers Care Manager Programs Name Role Phone Jaz Myers MD Primary Care Provider [phone] Radha Fox MD, S Unavailable Devyn Jay MD Unavailable [phone] Reason for Referral * MRI/CAT Scan - Closed Specialty Diagnoses / Procedures Referred By Contac t Referred To Contact Radiology Diagnoses Interstitial lung disease Procedures NC PET/CT Cardiac Sarcoid PET/SPECT NC SPECT MYOCARDIAL VIABILITY CHG MYOCRD IMG PET METAB EVAL SINGLE STUDY CNCRNT CT CHG MYOCARDIAL SPECT SINGLE STUDY AT REST OR STRESS Radha Fox MD, S [address] [address] Phone: tel: fax: [email or web address] Referral ID Status Reason Start Date Expiration Date Visits Re quested Visits Authorized [id number] Closed 06/21/2024 08/29/2024 1 1 Encounter Details Date Type Department Care Team (Latest Contact Info) Description 06/16/2024 Ancillary Orders [facility]-P[facility] Medicine [address] [place] [address] Radha Fox MD, S [address] [place] [address] [email or web address] Interstitial lung disease (Primary Dx) Social History Tobacco Use Types Packs/Day Years Used Date Smoking Tobacco: Never Smokeless Tobacco: Never Education Answer Date Recorded Are you interested [...] as food, clothing, or medical care? No 06/19/2024 In the past 12 months have y ou been in a relationship with a person who hurts, threatens, or tries to control you? No 06/19/2024 Are you denied basic needs s uch as food, clothing, or medical care? No 06/19/2024 In the past 12 months have y ou been in a relationship with a person who hurts, threatens, or tries to control you? No 06/19/2024 Comments Unknown Sex and Gender Information Value Date Recorded Sex Assigned at Unknown 11/16/2023 6:15 PM EDT Legal Sex Male 7:29 PM EST Gender Identity Male 11/16/2023 6:15 PM EDT Sexual Orientation Don't know 11/16/2023 6: 15 PM EDT documented as of this encounter Functional Status * Calculated C-SSRS Risk Score (Lifetime/Recent) Answer Date of Assessment Author No Risk Indicated 06/19/2024 9:22 AM Beth Anderson RN * [place] Suicide Severity Rating Scale (Screener/Recent Self-Report) Question Answer Date of Assessment Author 1. Wish to be (Past 1 Month) No 06/19/2024 9:22 AM Beth Fernando RN 2. Non-Specific Active Suicidal Thoughts (Past 1 Month) No 06/19/2024 9:22 AM Beth Fernando RN 6. Suicidal Behavior (Lifetime) No 06/19/2024 9:22 AM GUILLERMO PhiladelphiaBeth nelson Nav orozco RN documented as of this encounter Plan of Treatment Scheduled Procedures Name Priority Associated Diagnoses Date/Ti me ESOPHAGEAL MOTILITY Encounter for pre-transplant evaluation for lung transplant documented as of this encounter Results * NC PET/CT Cardiac Sarcoid PET/SPECT (08/03/2024 12:22 PM EDT) Anatomical Region Laterality Modality Heart Nuclear Medicine 08/03/2024 7:30 AM EDT Narrative 08/03/2024 4:[address] Fox, Your patient Max Daniels, a 58 year old men with pulmonary sarcoidosis was referred to us for myocardial perfusion SPECT and metabolism PET/CT study to evaluate for myocardial inflammation. 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 Tc-99m Sestamibi Rest SPECT and F-18 FDG PET/CT Protocol: Mr. Daniels underwent a myocardial SPECT study following the IV administration of 8.07 mCi of Tc-99m Sestamibi. Gated myocardial perfusion SPECT images were obtained at rest. Following perfusion imaging, the patient was injected with 9.91 mCi of F-18 FDG intravenously. After a 90-minute uptake period, a dedicated cardiac FDG PET/CT and a limited whole body FDG PET/CT scan were obtained. Perfusion imaging was obtained on 08/03/2024, followed by FDG imaging on 08/03/2024. The patient was instructed to follow a high fat low carbohydrate diet prior to the study. The patient was on prednisone 10 mg PO daily at the time of imaging. Rest Perfusion and FDG Metabolism Myocardial Images: Perfusion image quality was excellent. The images demonstrated normal LV size and tracer uptake in the lungs. They also demonstrated normal RV size with normal RV tracer uptake at rest. FDG images were excellent in quality with adequate suppression of physiological myocardial glucose utilization. There are no regional perfusion defects. There are no focal areas of abnormal myocardial FDG uptake. Quantitative Evaluation: Exam Exam SUVmax Volume (mL) Number Date Myocardium (SUVmax > 2.7) 1 08/03/24 -- -- 2 NS = non-specific Gated SPECT The rest LV ejection fraction was calculated at 69% with normal LV volumes (18 mL/m2). There was normal regional wall motion and thickening. There was normal RV systolic function. Partial Body FDG PET/CT Images (reviewed by Dr. Mathew Villeda (nuclear medicine)): COMPARISON: None. FINDINGS: HEAD AND NECK: There is a small mucous retention cyst in the right maxillary sinus. There is no FDG-avid disease or significant lymphadenopathy in the imaged portions of the head and the neck. Surgical clips in the right supraclavicular region. CHEST: There is severe bilateral reticular thickening, traction bronciectasis and subpleural cystic/honeycomb changes, likely representing underlying interstitial lung disease. There are small mediastinal and hilar lymph nodes with no significant FDG uptake, likely reactive. There is no pleural or pericardial effusion. There is no air-space disease or suspicious lung nodule. ABDOMEN/PELVIS: There is no significant lymphadenopathy and no FDG-avid disease in the upper abdomen. MUSCULOSKELETAL: There is no FDG-avid or destructive bone lesion. Final Impression: 1. Normal myocardial perfusion. There is no evidence of scar or focal myocardial inflammation. 2. Normal LV systolic function at rest. 3. There is no evidence of metabolically active extracardiac sarcoidosis. 4. Background Interstitial lung disease changes, better described on recent CT chest. The teaching physician, Dr. Surendra Phan, has supervised the procedure and performed the interpretation and reporting of the resulting data. Thank you for referring this patient to us. Sincerely yours, Margarita Quijano M.D., Cardiovascular Imaging Fellow Surendra Phan M.D., Attending Physician Mathew Villeda M.D., Attending Physician Procedure Note Surendra Pineda MD - 08/03/[address] Fox, Your patient Max Daniels, a 58 year old men with pulmonary sarcoidosiswas referred to us for myocardial perfusion SPECT and metabolism PET/CTstudy to evaluate for myocardial inflammation. 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 Tc-99m Sestamibi Rest SPECT and F-18 FDG PET/CT Protocol: Mr. Daniels underwent a myocardial SPECT study following the IVadministration of 8.07 mCi of Tc-99m Sestamibi. Gated myocardial perfusionSPECT images were obtained at rest. Following perfusion imaging, thepatient was injected with 9.91 mCi of F-18 FDG intravenously. After a 90-minute uptake period, a dedicated cardiacFDG PET/CT and a limited whole body FDG PET/CT scan were obtained.Perfusion imaging was obtained on 08/03/2024, followed by FDG imaging on08/03/2024. The patient was instructed to follow a high fat low carbohydrate dietprior to the study. The patient was on prednisone 10 mg PO daily at thetime of imaging. Rest Perfusion and FDG Metabolism Myocardial Images: Perfusion image quality was excellent. The images demonstrated normal LVsize and tracer uptake in the lungs. They also demonstrated normal RVsize with normal RV tracer uptake at rest. FDG images were excellent in quality with adequate suppression ofphysiological myocardial glucose utilization. There are no regional perfusion defects. There are no focal areas of abnormal myocardial FDG uptake. Quantitative Evaluation: Exam Exam SUVmax Volume (mL) Number Date Myocardium (SUVmax > 2.7) 1 08/03/24 -- -- 2 NS = non-specific Gated SPECT The rest LV ejection fraction was calculated at 69% with normal LV volumes(18 mL/m2). There was normal regional wall motion and thickening. Therewas normal RV systolic function. Partial Body FDG PET/CT Images (reviewed by Dr. Mathew Villeda (nuclearmedicine)): COMPARISON: None. FINDINGS: HEAD AND NECK: There is a small mucous retention cyst in the rightmaxillary sinus. There is no FDG-avid disease or significantlymphadenopathy in the imaged portions of the head and the neck. Surgicalclips in the right supraclavicular region. CHEST: There is severe bilateral reticular thickening, tractionbronciectasis and subpleural cystic/honeycomb changes, likely representingunderlying interstitial lung disease. There are small mediastinal andhilar lymph nodes with no significant FDG uptake, likely reactive. There is no pleural or pericardial effusion.There is no air-space disease or suspicious lung nodule. ABDOMEN/PELVIS: There is no significant lymphadenopathy and no FDG-aviddisease in the upper abdomen. MUSCULOSKELETAL: There is no FDG-avid or destructive bone lesion. Final Impression: 1. Normal myocardial perfusion. There is no evidence of scar or focalmyocardial inflammation. 2. Normal LV systolic function at rest. 3. There is no evidence of metabolically active extracardiac sarcoidosis. 4. Background Interstitial lung disease changes, better described onrecent CT chest. The teaching physician, Dr. Surendra Phan, has supervised the procedureand performed the interpretation and reporting of the resulting data. Thank you for referring this patient to us. Sincerely yours, Margarita Quijano M.D., Cardiovascular Imaging Fellow Surendra Phan M.D., Attending Physician Mathew Villeda M.D., Attending Physician us Radha Fox MD, S CV NM CARDIAC F inal Result documented in this encounter Visit Diagnoses Diagnosis Interstitial lung disease- Primary Postinflammatory pulmonary fibrosis Interstitial lung disease Postinflammatory pulmonary fibrosis documented in this encounter Additional Health Concerns Assessment Noted Time PHQ-2 Depression Total Score: 0 05/19/19 25 8:05 AM EST documented as of this encounter Care Teams Manager Programs Relationship Specialty Start Date End Date Jaz Myers MD [address] [place] [address] PCP - General Internal Medicine 11/16/23 Radha Fox MD, S [address] [place] [address] 3 [place] [address] Referring Physician Pulmonary Disease 06/14/24 Devyn Jay MD [address] [place] [address] [address] [place] [address] Pulmonary Disease 09/08/24 documented as of this encounter Additional Source Comments The information contained in this document represents components of the legal health record. It is not the complete legal health record.[facility]
--- OUTSIDE RECORDS SUMMARY | 2025-01-04 08:05 | XMS_ITS | Encounter Summary ---
Author Organization [facility] Address [address] [facility] [address] [place] [address] Phone Care Team Providers Care Residential Monitor Name Role Phone Jaz Myers MD Primary Care Provider [phone] Radha Fox MD, S Unavailable Devyn Jay MD Unavailable [phone] Encounter Details Date Type Department Care Team (Late st Contact Info) Description 11/17/2023 Procedure Pass [facility] Endoscopy Admitting Dept Virtual Department [address] [place] [address] Social History Tobacco Use Types Packs/Day Years [...] documented as of this encounter Care Teams Residential Monitor Relationship Specialty Start Date End Date Po, Jaz Whalen MD [address] [place] [id number] PCP - General Internal Medicine 11/16/23 Radha Fox MD, S [address] [place] [address] 3 [place] [address] [email or web address] Referring Physician Pulmonary Disease 06/14/24 Devyn Jay MD [address] [place] [address] [address] [place] [address] Pulmonary Disease 09/08/24 documented as of this encounter Additional Source Comments The information contained in this document represents components of the legal health record. It is not the complete legal health record.[facility]
--- OUTSIDE RECORDS SUMMARY | 2025-01-04 08:05 | XMS_ITS ---
Author Organization [facility] Address [address] [facility] [address] [place] [address] Phone Care Team Providers Care Language Teacher Name Role Phone Jaz Myers MD Primary Care Provider [phone] Radha Fox MD, S Unavailable Devyn Jay MD Unavailable [phone] Transplant Episode Lung Candidate [facility] ([place], [place]) - [facility] Evaluation began on 06/19/2024 Marked as Deferred on 10/18/2024 Reason: Unable to Contact Patient Lung CoordinatorAna Da Silva RN Email: [email or web address] Scores Score Value Updated Exceptions/Reas ons CPRA 0 08/03/2024 LAS Not available Care Team Name Role Phone Fax Email Ana Da Silva RN Lung Coordinator [phone] [email or web address] [employer] Self Server [phone] [email or web address] Radha Fox MD, S Referring Physician [phone] [email or web address] Evette Reilly [employer] Representative N/A [email or web address] Pre-Transplant Referred: 06/14/2024 Evaluation began: 06/19/2024
--- OUTSIDE RECORDS SUMMARY | 2025-01-04 08:05 | XMS_ITS | Clinical Summary ---
Author Organization [facility] Address [address] [facility] [address] [place] [address] Phone Care Team Providers Care Mail Handler Name Role Phone Jaz Myers MD Primary Care Provider [phone] Radha Fox MD, S Unavailable Devyn Jay MD Unavailable [phone] Allergies No known active allergies Medications warfarin (COUMADIN) 4 MG tablet Take 4 mg by mouth daily. Active VENTOLIN HFA 90 mcg/actuation inhaler INHALE 2 PUFFS EVERY 6 HOURS NEEDED FOR SHORTNESS OF BREATH OR WHEEZING FOR 30 DAYS 4 Active OFEV 150 mg capsule 4 Active predniSONE (DELTASONE) 10 MG tablet Take 4 tablets (40 mg total) by mouth daily with breakfast. 30 tablet 3 5 Active cholecalciferol (VITAMIN D3) 2,000 unit capsule Take 5,000 Units by mouth 2 (two) times a day. 5 Active calcium citrate 250 mg calcium Tab Take 2 tablets by mouth every morning. 5 Active PRED FORTE 1 % ophthalmic suspension Place 1 drop into the left eye daily. 4 Active cetirizine (ZYRTEC) 10 MG tablet TAKE 1 TABLET BY MOUTH EVERY DAY 90 tablet 1 5 Active omeprazole (PRILOSEC) 40 MG capsule TAKE 1 CAPSULE (40 MG TOTAL) BY MOUTH DAILY. 90 capsule 1 5 Active Active Problems Problem Noted Date Diagnosed Date Encounter for pre-transplant evaluation for lung transplant 08/03/2024 Warfarin anticoagulation 06/19/2024 Oxygen dependent 06/19/2024 Sarcoidosis 11/16/2023 Assessment & Plan (11/19/2023 12:41 PM EDT): Pulmonology consulted. Recommended bronchoscopy, this was done 11/16. After procedure steroid dose increased and changed from prednisone to Solu-Medrol (patient reports has not been hospitalized in the past for his lungs). So far bronch washings have tested positive for covid. Welding Machine Operator Electro Gas saw ? Lesion on right vocal cord. She reviewed this with ENT who said probably benign contact granuloma from coughing treatment usually surveillance not surgery, ENT recommended outpatient follow-up pulm nodule follow-up on patient when bronchoscopy results return Will switch back to oral pred No treatment for covid indicated, outside the window. Assessment & Plan (11/19/2023 4:38 PM EDT): Progressive dyspnea and hypoxemia over the preceding 4-5 months despite prednisone 7 mg daily (and ?infliximab) for chronic management of sarcoidosis (followed by pulmonology in [place]). Patient had been using supplemental oxygen increasingly, even for short distances. Clubbing noted on physical exam, suggesting chronic hypoxia. Patient's symptoms have not improved significantly with prednisone, suggesting need for escalation of therapy. CTPA from 11/15 negative for PE, otherwise notable for bilateral parenchymal ground glass opacities, reticular thickening, architectural distortion and honeycombing as well as lymphadenopathy in keeping with sarcoidosis. Confluent opacities bilateral lower lobes left greater than right may represent superimposed acute flare. Bronchoscopy performed on 11/16 with lymphocytic BAL. He was escalated to IV Solu-Medrol for management of possible sarcoidosis flare. Bronchoscopy studies thus far unremarkable aside from +COVID. Unclear whether this represents superimposed viral pneumonia versus representing a sarcoidosis flare possibly triggered by COVID. Recommend ongoing treatment of presumptive sarcoidosis flare (and management of possible COVID-pneumonia) with steroids. At this juncture, I suspect that patient would be unlikely to benefit from remdesivir. Recommendations: -Agree with transition to prednisone tomorrow with taper (entered into EMR)--once down to 10 mg daily would hold at this dose until advised further by patient's primary residential care officer -Goal SpO2 with supplemental oxygen > 90% and < 96% -Outpatient follow-up with residential care officer in [place] Resolved Problems Problem Noted Date Diagnosed Date Resolved Date Patient on waiting list for lung transplant 06/19/2024 06/19/2024 Lab test positive for detect ion of COVID-19 virus 11/19/2023 06/19/2024 Assessment & Plan (11/19/2023 12:42 PM EDT): Bronch specimen. Unclear if he has covid pna or a sarcoid flare caused by covid Potassium (K) excess 11/18/2023 025 Assessment & Plan (11/18/2023 3:29 PM EDT): Patient's potassium mildly elevated. Renal function normal. Low potassium diet. 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 Continue coumadin Encounters Date Type Department Care Team Description 10/23/2024 Telephone [facility] Lung Center-Transplant Program [address] [place] [id number] Wendy Keys 10/19/2024 Telephone [facility] Lung Center-Transplant Program [address] [place] [address] Wendy Keys 10/19/2024 Orders Only [facility] Lung Center-Transplant Program [address] [place] [address] Juwan Branch MD Encounter for pre-transplant evaluation for lung transplant (Primary Dx) from Last 3 Months Immunizations Immunization Administration Dates Next Due COVID-19, Unspecified Formulation 08/21/2020, Influenza, Unspecified Formulation 01/25/2024,,02/15/2018 Social History Tobacco Use Types Packs/Day Years Used Date Smoking Tobacco: Never Smokeless Tobacco: Never Tobacco Cessation:Counseling Given: Not Answered Education Answer Date Recorded Are you interested [...] Don't know 11/16/2023 6: 15 PM EDT Last Filed Vital Signs Vital Sign Reading Time Taken Comments Blood Pressure 158/72 06/19/2024 4:49 PM EST Pulse 61 06/19/2024 4:49 PM EST Temperature 36.8 C (98.2 F) 06/19/2024 4:49 PM EST Respiratory Rate 18 06/19/2024 4:49 PM EST Oxygen Saturation 99% 06/19/2024 4:49 PM EST Inhaled Oxygen Concentration 21% 11/17/2023 2 :30 PM EDT Weight 64.4 kg (142 lb) 06/19/2024 9:10 AM EST Height 162.6 cm (5' 4 ) 06/19/2024 9:10 AM EST Body Mass Index 24.37 06/19/2024 9:10 AM EST Plan of Treatment Scheduled Procedures Name Priority Associated Diagnoses Date/Ti me ESOPHAGEAL MOTILITY Encounter for pre-transplant evaluation for lung transplant Health Maintenance Due Date Last Done Comments Adult Td,Tdap Booster 1965 COLOGUARD 11/03/2011 COLONOSCOPY 11/03/2011 COLORECTAL CANCER SCREENING 11/03/2011 FIT TEST 11/03/2011 FOBT 11/03/2011 SIGMOIDOSCOPY 11/03/2011 VIRTUAL COLONOSCOPY 11/03/2011 PNEUMOCOCCAL VACCINES (50+ years) (1 of 1 - PCV) 2016 ZOSTER VACCINES (1 of 2) 2016 COVID-19 VACCINE (3 - 2023-2 5 season) 2024 08/21/2020, 07/30/2020 DEPRESSION SCREENING 05/19/2025 05/19/2024 LIPID PANEL 08/03/2029 08/03/2024 SMOKING STATUS SCREENING (On ce After 26 Yrs) Completed 05/19/2024 HEPATITIS C SCREENING Completed 08/03/2024 HIV ONE-TIME SCREENING (18-6 5 YEARS) Completed 08/03/2024 HIB VACCINES Aged Out No longer eligi ble based on patient's age to complete this topic MENINGOCOCCAL VACCINES (ACWY) Aged Out No longer eligible based on patient's age to complete this topic MENINGOCOCCAL VACCINES (B) Aged Out N o longer eligible based on patient's age to complete this topic Medical Devices Not on file Procedures Procedure Name Priority Date/Time Associated Diagnosis Comments OUTSIDE PATHOLOGY 12/27/2024 OUTSIDE PROCEDURE 12/27/2024 LIPID PANEL Routine 08/03/2024 1:38 PM EDT Encounter for pre-transplant evaluation for lung transplant HEPATITIS C ANTIBODY, QUALITATIVE Routine 08/03/2024 1:38 PM EDT Need for hepatitis C screening test from Last 3 Months or Most Recently Relevant to Health Maintenance Results * Outside Procedure (12/27/2024) us Scanning Interface Provider PROCEDURE/MINOR SURG ICAL PERFORMABLES Final Result * Outside Pathology (12/27/2024) us Scanning Interface Provider PATHOLOGY ORDERABLES Final Result * Hepatitis C antibody, qualitative (08/03/2024 1:38 PM EDT) HCV Nonreactive Nonreactive [facility] 08/03/2024 1:38 PM EDT 08/03/2024 2:00 PM EDT us Melinda Epps MD LAB BLOOD ORDERABLES Final Resul t Performing Organization Address City/[facility] Co de Phone Number [facility] [address] [place] [address] * (ABNORMAL) Lipid panel (08/03/2024 1:38 PM EDT) CHOLESTEROL 253(H) <200 mg/dL [facility] TRIGLYCERIDES 255(H) 35 - 150 mg/dL [facility] HDL 100(H) 40 - 80 mg/dL [facility] CALCULATED LDL 102 50 - 129 mg/dL [facility] VLDL 51(H) <31 mg/dL [facility] CARDIAC RISK RATIO 2.5 0.0 - 4.0 [facility] 08/03/2024 1:38 PM EDT 08/03/2024 2:00 PM EDT Melinda Epps MD LAB BLOOD ORDERABLES Final Resul t Performing Organization Address [facility] Co de Phone Number [facility] [address] [place] [phone] from Last 3 Months or Most Recently Relevant to Health Maintenance [place] [address] [place] [address] [place] [address] [place] [address] [facility] [facility] ACO [facility] ACO Advance Directives For more information, please contact: [phone] (9AM - 5PM Karla/[facility], Wednesday-Wednesday) Documents on File Type Date Recorded Patient Business Planner Expl anation Healthcare Proxy 11/22/2023 5:32 PM Healthcare Proxy 11/19/2023 7:44 AM Health care Proxy * Full Code (Latest Code Status on File) Date Activated Date Inactivated Comments 06/19/2024 2:30 PM Question Answer Comments Code Status Confirmed With: Patient * Full Code Date Activated Date Inactivated Comments 11/16/2023 10:19 PM 06/19/2024 2:30 PM Question Answer Comments Code Status Confirmed With: Patient Code Status Communicated To: Inpatient Attending Care Teams Mail Handler Relationship Specialty Start Date End Date Louis, Jaz Whalen MD [address] [place] [address] PCP - General Internal Medicine 11/16/23 Radha Fox MD, S [address] [place] [address] 3 [place] [address] Referring Physician Pulmonary Disease 06/14/24 Devyn Jay MD [address] [place] [address] [address] [place] [address] Pulmonary Disease 09/08/24 Additional Source Comments The information contained in this document represents components of the legal health record. It is not the complete legal health record.[facility]
--- OUTSIDE RECORDS SUMMARY | 2025-01-04 08:05 | XMS_ITS | Encounter Summary ---
Author Organization [facility] Address [address] [place] [address] Phone Care Team Providers Care Supervisor Pigment Making Name Role Phone Jaz Myers MD Primary Care Provider [phone] Radha Fox MD, S Unavailable Devyn Jay MD Unavailable [phone] Encounter Details Date Type Department Care Team (Late st Contact Info) Description 05/19/2024 Procedure Pass [facility] Echocardiography [address] [place] [address] Social History Tobacco Use Types Packs/Day Years [...] filedocumented in this encounter Additional Health Concerns Assessment Noted Time PHQ-2 Depression Total Score: 0 05/19/19 8:05 AM EST documented as of this encounter Care Teams Supervisor Pigment Making Relationship Specialty Start Date End Date Jaz Myers MD [address] [place] [id number] PCP - General Internal Medicine 11/16/23 Radha Fox MD, S [address] [facility] 3 [place] [address] [email or web address] Referring Physician Pulmonary Disease 06/14/24 Devyn Jay MD [address] [facility] [address] [place] [address] Pulmonary Disease 09/08/24 documented as of this encounter Additional Source Comments The information contained in this document represents components of the legal health record. It is not the complete legal health record.[facility]
--- OUTSIDE RECORDS SUMMARY | 2025-01-04 08:05 | XMS_ITS | Encounter Summary ---
Author Organization [facility] Address [address] [place] [address] Phone Care Team Providers Care Theatrical Scenic Designer Name Role Phone Jaz Myers MD Primary Care Provider [phone] Radha Fox MD, S Unavailable Devyn Jay MD Unavailable [phone] Encounter Details Date Type Department Care Team (Late st Contact Info) Description 11/16/2023 Procedure Pass [facility], Ct Scan - [address] [address] Social History Tobacco Use Types Packs/Day Years [...] Date of Assessment Author No Risk Indicated 11/16/2023 5:07 PM EDT Nany Warren RN * [place] Suicide Severity Rating Scale (Screener/Recent Self-Report) Question Answer Date of Assessment Author 1. Wish to be (Past 1 Month) No 11/16/2023 5:07 PM EDT Nany Warren RN 2. Non-Specific Active Suicidal Thoughts (Past 1 Month) No 11/16/2023 5:07 PM EDT Nany Warren RN 6. Suicidal Behavior (Lifetime) No 11/16/2023 5:07 PM EDT Nany Warren RN documented as of this encounter Plan of Treatment Scheduled Procedures Name Priority Associated Diagnoses Date/Ti me ESOPHAGEAL MOTILITY Encounter for pre-transplant evaluation for lung transplant documented as of this encounter Visit Diagnoses Not on filedocumented in this encounter Additional Health Concerns Infection Onset Date Last Indicated Resolved Time COVID-19 11/17/2023 11/19/2023 12/08/2023 1:21 AM EDT documented as of this encounter Care Teams Theatrical Scenic Designer Relationship Specialty Start Date End Date Jaz Myers MD [address] [place] [address] PCP - General Internal Medicine 11/16/23 Radha Fox MD, S [address] [place] [id number] [email or web address] Referring Physician Pulmonary Disease 06/14/24 Devyn Jay MD [address] [place] [address] Pulmonary Disease 09/08/24 documented as of this encounter Additional Source Comments The information contained in this document represents components of the legal health record. It is not the complete legal health record.[facility]
--- OUTSIDE RECORDS SUMMARY | 2025-01-04 08:05 | XMS_ITS | Patient Health Record ---
Author Organization [facility] Address [address] [place] [address] Care Team Providers Care Front Office Specialist Name Role Phone Jaz Myers MD Primary Care Provider Masno Castro [phone] Allergies No Known Allergies Results Component Value Reference Range Notes Prothrombin Time INR Reviewed date:11/28/2024 10:12:07 AM Interpretation: Performing Lab:[facility], [address] [place] [phone] Notes/Report: Prothrombin Time 11.8 10.9-12.4 [employer] [...] (Not yet reviewed by provider) Interpretation: Performing Lab:[facility], [address] [place] [phone] Notes/Report: Reason For Referral No Information Medications [...] Colon cancer screening (Z12.11) Active confirmed Problem 83931373 Rectal bleeding (K62.5) Active confirmed Problem [id number] History of adenomatous polyp of colon (Z86.010) Active confirmed Problem Preprocedural examination (665714594236273) Preprocedural examination (Z01.818) Active confirmed Problem Diverticulosis of colon (978296593) Diverticulosis of colon (K57.30) Active confirmed Vital Signs Temperature 97.8 degrees Fahrenheit 09/06/2024 Blood pressure diastolic 01 mm Hg 09/06/2024 Height 64 in 09/06/2024 Blood pressure systolic 001 mm Hg 09/06/2024 Weight 136 lbs 09/06/2024 BMI 23.34 kg/m2 09/06/2024 Procedures Procedure Date Ordered Date Performed Result Body Sit e COLONOSCOPY 09/06/2024 N/A Encounters Encounter Location Date Provider Diagnosis [facility] [address] [place], [place] [id number] 11/27/2024 [place] [facility] [address] [place] [address] 09/06/2024 [place] History of adenomato us polyp of colon Z86.010 ; Preprocedural examination Z01.818 and Colon cancer screening Z12.11 [facility] [address] [place] [address] 12/01/2024 [place] [facility] [address] [place] [address] 09/06/2024 [place] [facility] [address] [place] [address] 11/20/2024 [place] Assessments Encounter Date Diagnosis [...] cleared for a potential lung transplant in [place]. As such I will plan to arrange this for him. He will need to stop Coumadin for 5 days prior to the procedure and obtain a prescription and instructions for Lovenox use from Dr. Calabrese. We will also need to obtain clearance and some records from both Dr. Da Silva and the lung transplant clinic at [facility]. Full consent has been obtained from [...] cleared for a potential lung transplant in [place]. As such I will plan to arrange this for him. He will need to stop Coumadin for 5 days prior to the procedure and obtain a prescription and instructions for Lovenox use from Dr. Calabrese. We will also need to obtain clearance and some records from both Dr. Da Silva and the lung transplant clinic at [facility]. Full consent has been obtained from [...] cleared for a potential lung transplant in [place]. As such I will plan to arrange this for him. He will need to stop Coumadin for 5 days prior to the procedure and obtain a prescription and instructions for Lovenox use from Dr. Calabrese. We will also need to obtain clearance and some records from both Dr. Da Silva and the lung transplant clinic at [facility]. Full consent has been obtained from [...] Insured Coverage Start Date Coverage End Date [facility] [employer] [facility] [address] [address] [place], [place] [id number] NELLY OWENS Self - patient is the insured MEDICAID OF [facility] [address] [place] [address] [phone] [id number] NELLY OWENS Self - patient is the insured Medical (General) History Medical History History ICD Code Denies PR,DM,CVA,Lung disease,renal dise ase Pulmonary Sarcoidosis--it has also [...] being followed by Dr. Da Silva at [facility] Pulmonary Department and the lung transplant center at [facility] in [place].He is currently on 2 L of nasal cannula 24 hours a day as of the August 2024 office visit. Surgical History Surgery Date(Month/Year) Hernia repair--umbilical 2017
--- OUTSIDE RECORDS SUMMARY | 2025-01-04 08:06 | XMS_ITS | Encounter Summary ---
Author Organization [facility] Address [address] [place] [address] Phone Care Team Providers Care Financial Officer Name Role Phone Jaz Myers MD Primary Care Provider [phone] Radha Fox MD, S Unavailable Devyn Jay MD Unavailable [phone] Encounter Details Date Type Department Care Team (Late st Contact Info) Description 05/19/2024 Procedure Pass [facility] [address] [place] [address] Social History Tobacco Use Types Packs/Day Years [...] documented as of this encounter Care Teams Financial Officer Relationship Specialty Start Date End Date Po, Jaz Whalen MD [address] [place] [address] PCP - General Internal Medicine 11/16/23 Radha Fox MD, S [address] [facility] 3 [place] [address] [email or web address] Referring Physician Pulmonary Disease 06/14/24 Devyn Jay MD [address] [facility] 200 [place] [address] Pulmonary Disease 09/08/24 documented as of this encounter Additional Source Comments The information contained in this document represents components of the legal health record. It is not the complete legal health record.[facility]
--- OUTSIDE RECORDS SUMMARY | 2025-01-04 08:06 | XMS_ITS | Encounter Summary ---
Author Organization [facility] Address [address] [facility] [address] [facility] [address] [place] [address] Phone Care Team Providers Care Stamps Or Coins Salesperson Name Role Phone Jaz Myers MD Primary Care Provider [phone] Radha Fox MD, S Unavailable Devyn Jay MD Unavailable [phone] Encounter Details Date Type Department Care Team (Late st Contact Info) Description 05/24/2024 Transcribe Orders [facility] EKG [address] [place] [address] Jaz Myers MD [address] [place] [address] Social History Tobacco Use Types Packs/Day Years [...] documented as of this encounter Care Teams Stamps Or Coins Salesperson Relationship Specialty Start Date End Date Po, Jaz Whalen MD [address] [place] [address] [address] [place] [address] PCP - General Internal Medicine 11/16/23 Radha Fox MD, S [address] [place] [address] [address] [place] [address] Referring Physician Pulmonary Disease 06/14/24 Devyn Jay MD [address] [place] [address] [address] [place] [address] Pulmonary Disease 09/08/24 documented as of this encounter Additional Source Comments The information contained in this document represents components of the legal health record. It is not the complete legal health record.[facility]
[2025-01-04 08:08] LABS: Prothrombin Time Whole Bld POC 31.7 sec (11.1-13.5); ~PT, ~INR - Anti Coag Clinic 2.6 (0.9-1.1)
--- NOTE | 2025-01-04 08:10 | MHC.OFFVISCO ---
Intake Intake Visit Reasons: Anticoagulation Allergies No Known Allergies (No Known Allergies*) Allergy (Verified 01/04/25 08:03) Medication List - Last Reconciled 01/04/25 by Mami Springer RN albuterol sulfate 90 mcg/actuation 2 inhalations inhalation Q6H PRN 30 days calcium citrate 1,000 mg PO DAILY cetirizine 10 mg PO DAILY PRN chlorpheniramine maleate (Allergy Relief (chlorpheniramine)) 4 mg PO Q6H PRN cholecalciferol (vitamin D3) (Vitamin D3) 100 mcg (2 x 50 mcg (2,000 unit)) PO DAILY 30 days clotrimazole 1% 1 appl topical BID 4 weeks ferrous sulfate (Feosol) 325 mg PO BID 30 days infliximab (Remicade) 336 mg IV Q4W 12 months nintedanib (Ofev) 150 mg PO Q12H 30 days omeprazole 40 mg PO DAILY Oxygen Home Use As directed prednisolone acetate 1% (Pred Forte) 1 drp ophthalmic (eye) BEDTIME prednisone 20 mg PO QAM warfarin (Jantoven) 4 mg See Protocol PO BEDTIME Nursing Note INR: 2.6 in therapeutic range of 2-3 Medications and supplements reviewed No changes in health, diet, medications, or supplements, Denies any signs and symptoms of bleeding or bruising or clotting. Bleeding, bruising, clotting discussed Nutritional guidance given Dose: 4mg X 5 days and 2mg X 2 days (Sun & Thurs) F/U INR: 01/15/25 Patient verbalizes understanding of instructions given Anti-Coag Initial Assessment Social Hx Patient Tobacco Use Status: Never used Tobacco alcohol intake: current Alcohol intake frequency: does not drink Coding Level of Care Code Est Patient Level 1 Diagnoses Current use of anticoagulant therapy Z79.01 Assessment & Plan Assessment & Plan (1) Current use of anticoagulant therapy: Code(s): Z79.01 - technician terminal and repeater (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
== END 2025-01-04 08:14 | disposition home or self-care (01) ==
LOC: HO.ACS 07:59
PROVIDERS: PCP Internal Medicine; Visit Provider Internal Medicine Medical Oncology
DX: Z79.01 Long term (current) use of anticoagulants (principal)

== ENCOUNTER → 2025-01-04 07:59 | Outpatient (BNVA) | payer OTHER, SELFPAY | PROVIDERS: PCP Internal Medicine; Visit Provider Internal Medicine Medical Oncology | DX: D50.9 Iron deficiency anemia, unspecified (principal); E78.00 Pure hypercholesterolemia, unspecified; D68.59 Other primary thrombophilia; R73.02 Impaired glucose tolerance (oral); K76.0 Fatty (change of) liver, not elsewhere classified; K64.9 Unspecified hemorrhoids; D86.9 Sarcoidosis, unspecified; J84.10 Pulmonary fibrosis, unspecified; R03.0 Elevated blood-pressure reading, without diagnosis of hypertension; I82.402 Acute embolism and thrombosis of unspecified deep veins of left lower extremity; Z79.01 Long term (current) use of anticoagulants; Z51.81 Encounter for therapeutic drug level monitoring; Z13.31 Encounter for screening for depression | CPT/HCPCS: 85610; 99211; 99212 ==

== ENCOUNTER 2025-01-04 08:18 | Outpatient (AMB) | payer OTHER, SELFPAY ==
--- NOTE | 2025-01-04 08:20 | A.OFFPC_ITS ---
Vital Signs 01/04/25 08:21 Height 5 ft 4 in Weight 132 lb BMI 22.7 BP 142/88 H Blood Pressure Location Lt brachial Position Sitting Pulse 100 Pulse Source Pulse Oximeter Pulse Oximetry (%) 94 Oxygen Delivery Method Nasal Cannula Intake Visit Reasons: I LD, sarcoidosis Allergies No Known Allergies (No Known Allergies*) Allergy (Verified 01/04/25 08:22) Medication List - Last Reconciled 01/04/25 by Jaz Myers MD albuterol sulfate 90 mcg/actuation 2 inhalations inhalation Q6H PRN 30 days ascorbic acid (vitamin C) 500 mg PO .QD blood pressure monitor (Blood Pressure Kit) As directed calcium citrate 1,000 mg PO DAILY cetirizine 10 mg PO DAILY PRN chlorpheniramine maleate (Allergy Relief (chlorpheniramine)) 4 mg PO Q6H PRN cholecalciferol (vitamin D3) (Vitamin D3) 100 mcg (2 x 50 mcg (2,000 unit)) PO DAILY 30 days clotrimazole 1% 1 appl topical BID 4 weeks ferrous sulfate (Feosol) 325 mg PO BID 30 days infliximab (Remicade) 336 mg IV Q4W 12 months nintedanib (Ofev) 150 mg PO Q12H 30 days omeprazole 40 mg PO DAILY Oxygen Home Use As directed prednisolone acetate 1% (Pred Forte) 1 drp ophthalmic (eye) BEDTIME prednisone 20 mg PO QAM warfarin (Jantoven) 4 mg See Protocol PO BEDTIME Tobacco use date assessed: 09/06/24 Dental Screening Dental Screen Date: 09/06/24 [facility] Medical History Oxygen dependent Bleeding hemorrhoids Pneumonia due to COVID-19 virus Pulmonary fibrosis ILD (interstitial lung disease) Bronchomalacia Sarcoidosis Pulmonary nodules Obesity (BMI 30.0-34.9) LFT elevation Hyperkalemia Glaucoma BPH (benign prostatic hyperplasia) Vitamin D deficiency Hypercholesterolemia Protein S deficiency DVT (deep venous thrombosis) Thrombocytopenia Surgical History History of bronchoscopy History of right inguinal hernia repair Hx of lymph node biopsy Hx of colonoscopy History of umbilical hernia repair History of appendectomy History of sinus surgery Family History Mother No problems noted. Father Medical history unknown Daughter In good health Sister In good health Brother Lung cancer Social History Household Members: Significant Other Housing: House Are you a primary child care sitter to a significant other at home: No Do you presently have visiting nurse or other home services: Yes (medical supply for O2) Alcohol intake: current Alcohol intake frequency: does not drink Comment: 3x a year 2 drinks Patient Tobacco Use Status: Never used Tobacco Tobacco use type: Cigarette e-Cigarette/Vaping Use: Never Used Second Hand Smoke Exposure: No service: No Current occupational status: employed Cognitive needs: No Hearing needs: No Vision needs: Yes Questionnaire PHQ-9 Over the last 2 weeks, how often have you been bothered by any of the following problems? 1. Little interest or pleasure in doing things: not at all 2. Feeling down, depressed, or hopeless: not at all 3. Trouble falling or staying asleep, or sleeping too much: not at all 4. Feeling tired or having little energy: not at all 5. Poor appetite or overeating: not at all 6. Feeling bad about yourself - or that you are a failure or have let yourself or your family down: not at all 7. Trouble concentrating on things, such as reading the newspaper or watching television: not at all 8. Moving or speaking so slowly that other people could have noticed. Or the opposite - being so fidgety or restless that you have been moving around a lot more than usual: not at all 9. Thoughts that you would be better off or of hurting yourself in some way: not at all Total score: 0 Depression Screening Interpretation: Negative Depression Screening Done: Yes Source: Developed by Drs. Mason Burton, Irma Morales, Waldemar Mchugh and colleagues, with an educational dc from [employer]. Thrive Questionnaire Date Thrive assessed: 09/06/24 I am a: Patient What is your living situation today?: I have a steady place to live Within the past 12 months, did the food you bought not last and you didn't have the money to get more?: I choose not to answer this question Within the past 12 months, did you worry whether your food would run out before you got money to buy more?: I choose not to answer this question Do you have trouble paying for medicines?: I choose not to answer this question Do you have trouble getting transportation to medical appointments?: I choose not to answer this question Do you have trouble paying your heating and electricity bill?: I choose not to answer this question Do you have trouble taking care of your child, family member or friend?: I choose not to answer this question Do you have trouble with day-to-day activities such as bathing, preparing meals, shopping, managing finances, etc.?: I choose not to answer this question Are you currently unemployed and looking for a job?: I choose not to answer this question Are you interested in more education?: I choose not to answer this question Please select the resources that you would like help with: None Currently or been in a relationship where the following occur: I choose not to answer THRIVE Score: 0 AUDIT C Alcohol Use Questionnaire (AUDIT-C) 1. How often do you have a drink containing alcohol?: Never Total Score: 0 Score Reviewed/Action Taken: No SANDRA-7 AMB Questionnaire SANDRA-7 Date SANDRA - 7 assessed: 09/06/24 Feeling nervous, anxious, or on edge: 0 = Not at all Not being able to stop or control worryin = Not at all Worrying too much about different things: 0 = Not at all Trouble relaxin = Not at all Being so restless that it is hard to sit still: 0 = Not at all Becoming easily annoyed or irritable: 0 = Not at all Feeling afraid as if something awful might happen: 0 = Not at all Total SANDRA-7 score (0-4 normal; 5-9 mild; 10-14 moderate; 15-21 severe): 0 Source: Developed by Drs. Mason Burton, Imra Morales, Waldemar Mchugh and colleagues, with an educational dc from [employer]. Physical exam (Primary Care) Vital Signs: Last Vital Signs Pulse 100 01/04/25 08:21 BP 142/88 H 01/04/25 08:21 Pulse Ox 94 01/04/25 08:21 Oxygen Delivery Method Nasal Cannula 01/04/25 08:21 BMI result Body Mass Index 22.7 Tobacco/Smoking Status: Tobacco use Status Tobacco use date assessed 09/06/24 01/04/25 08:20 Patient Tobacco Use Status Never used Tobacco 01/04/25 08:20 Tobacco use type Cigarette 01/04/25 08:29 e-Cigarette/Vaping Use Never Used 01/04/25 08:20 PHQ-9: PHQ-9 Score PHQ-9: Total score 0 01/04/25 08:29 Depression Screening Interpretation: Negative Thrive Assessment: Date of Thrive Assessment Date Thrive assessed 09/06/24 01/04/25 08:20 Currently or been in a relationship where the following occur: I choose not to answer Const General: alert; No acute distress Eyes Conjunctivae: conjunctivae normal Resp Auscultation: clear to auscultation bilaterally Cardio Rate: regular rate Rhythm: regular rhythm GI Inspection: Yes normal to inspection Extrem General: Yes normal to inspection and No edema Coding Level of Care Code Est Pt Level 4 (17682) Complex EM visit Add On G2211 Diagnoses Iron deficiency anemia D50.9 Hypercholesterolemia E78.00 Protein S deficiency D68.59 Chronic deep vein thrombosis (DVT) of lower extremity, unspecified laterality, unspecified vein I82.509 DVT location: lower extremity Affected thrombotic vein of extremity: unspecified vein of extremity Chronicity: chronic Laterality: unspecified laterality Impaired glucose tolerance R73.02 Fatty liver K76.0 Bleeding hemorrhoids K64.9 Sarcoidosis D86.9 Pulmonary fibrosis J84.10 Blood pressure elevated without history of HTN R03.0 Assessment & Plan Assessment & Plan (1) Iron deficiency anemia: Code(s): D50.9 - Iron deficiency anemia, unspecified Category: Medical Plan: Patient needs to take iron and vitamin-C to help with the anemia (2) Hypercholesterolemia: Code(s): E78.00 - Pure hypercholesterolemia, unspecified Category: Medical Plan: Avoid fried foods, chicken skin, eggs, butter margarine, pastries and meat. Be it pork or beef they have a lot of cholesterol LDL goal of less than 130 and triglyceride of less than 150 (3) Protein S deficiency: Code(s): D68.59 - Other primary thrombophilia Category: Medical Plan: Continue with anticoagulation with Coumadin patient follows up with Hematology- Oncology (4) DVT (deep venous thrombosis): Comment: 2015 protein S def Code(s): I82.409 - Acute embolism and thrombosis of unspecified deep veins of unspecified lower extremity Category: Medical Qualifiers: DVT location: lower extremity Affected thrombotic vein of extremity: unspecified vein of extremity Chronicity: chronic Laterality: unspecified laterality Qualified Code(s): I82.509 - Chronic embolism and thrombosis of unspecified deep veins of unspecified lower extremity Plan: Continue with anticoagulation (5) Impaired glucose tolerance: Code(s): R73.02 - Impaired glucose tolerance (oral) Category: Medical Plan: Decrease the amount of carbohydrate intake, pasta, bread, rice and potatoes are all sugar and that is aside from all the sweet stuff, remember that fruits are good but they are Sweet also. (6) Fatty liver: Code(s): K76.0 - Fatty (change of) liver, not elsewhere classified Category: Medical Plan: Low-fat diet and exercise (7) Bleeding hemorrhoids: Code(s): K64.9 - Unspecified hemorrhoids Category: Medical Plan: Patient will follow-up with the surgeon regarding rubber-band ligation (8) Sarcoidosis: Comment: pulmonary-dx 2011-follows w/Dr. Da Silva ([facility])-on continuous O2 2L Code(s): D86.9 - Sarcoidosis, unspecified Category: Medical Plan: Continue to all of follow-up with Pulmonary as well as lung transplant team in [place]. Presently continuing with Ofev, Remicade and prednisone (9) Pulmonary fibrosis: Comment: 2011 Code(s): J84.10 - Pulmonary fibrosis, unspecified Category: Medical Plan: Patient enrolled in the lung transplant program. (10) Blood pressure elevated without history of HTN: Code(s): R03.0 - Elevated blood-pressure reading, without diagnosis of hypertension Category: Medical Plan History of Present Illness The patient is a 59-year-old male presenting for follow-up on multiple chronic conditions including sarcoidosis, interstitial lung disease, and anemia. The patient has a history of sarcoidosis, which has been managed with Remicade, with the last infusion on December 22. He continues to experience dyspnea and is on prednisone 20 mg daily, which causes diarrhea. The patient also reports recent rectal bleeding, suspected to be due to hemorrhoids, and has been advised to undergo rubber band ligation. The patient has interstitial lung disease/pulmonary fibrosis and is on Ofev and oxygen supplementation. He is enrolled in a lung transplant program and continues pulmonary rehabilitation. The patient has a history of deep vein thrombosis in 2014 and is on anticoagulation therapy with Coumadin. He follows up with hematology/oncology for management. The patient has been diagnosed with iron deficiency anemia, with recent blood work showing anemia with hemoglobin at 11 g/dL and hematocrit at 35%. He has been advised to take iron supplements along with vitamin C to improve absorption. The patient has hypertension, with blood pressure readings often elevated to 140/80 mmHg. He has been advised to monitor his blood pressure at home and consider medication if readings remain high. Health Maintenance - Colonoscopy performed on December 02, 2024, showing some colitis. - Bone density test conducted on October 11, results were normal. - Blood pressure monitoring advised due to hypertension. Social History - Reports significant weight loss and decreased appetite, possibly related to COVID-19 sequelae. - Consumes more Gatorade than water, potentially affecting sodium levels. Review of Systems - Respiratory: Reports dyspnea on exertion, denies cough or wheezing. - Gastrointestinal: Reports diarrhea and rectal bleeding, denies constipation. - Cardiovascular: Denies chest pain or palpitations. - Neurological: Denies headaches or dizziness. - General: Reports significant weight loss and decreased appetite. Physical Exam Results - Labs: Anemia with hemoglobin at 11 g/dL and hematocrit at 35%. - Labs: Sodium elevated at 146 mmol/L. - Labs: Blood sugar mildly elevated at 114 mg/dL. - Labs: Iron levels low, indicating iron deficiency anemia. - Labs: LDL cholesterol at 118 mg/dL, triglycerides at 200 mg/dL. - Imaging: Bone density test normal. Plan Patient was informed and verbally consented to the use of an ambient scribe for clinic note documentation during this visit. 1. Sarcoidosis The patient is currently managed with Remicade, with the last infusion on December 22, and continues on prednisone 20 mg daily. He reports dyspnea and diarrhea as side effects of the medication regimen. 2. Interstitial Lung Disease/Pulmonary Fibrosis The patient is on Ofev and oxygen supplementation and is enrolled in a lung transplant program. He continues with pulmonary rehabilitation and follows up with the pulmonary team. 3. Deep Vein Thrombosis (Dvt) The patient has a history of DVT in 2014 and is on anticoagulation therapy with Coumadin. He follows up with hematology/oncology for ongoing management. 4. Iron Deficiency Anemia The patient has been diagnosed with iron deficiency anemia, with recent labs showing hemoglobin at 11 g/dL and hematocrit at 35%. He has been advised to take iron supplements with vitamin C to enhance absorption. 5. Hypertension The patient has hypertension with blood pressure readings often elevated to 140/80 mmHg. He has been advised to monitor his blood pressure at home and consider medication if readings remain high. 6. Colitis The patient had a colonoscopy showing some colitis, and there is a plan to manage inflammation with mesalamine if necessary. 7. Hemorrhoids The patient reports rectal bleeding, suspected to be due to hemorrhoids, and has been advised to undergo rubber band ligation. Discussion Notes During the visit, we discussed the management of the patient's sarcoidosis with Remicade and prednisone, noting the side effects of dyspnea and diarrhea. We reviewed the patient's enrollment in a lung transplant program and ongoing pulmonary rehabilitation for interstitial lung disease. The patient was advised to continue anticoagulation therapy for DVT and to follow up with hematology/oncology. We addressed the patient's iron deficiency anemia, recommending iron supplements with vitamin C. For hypertension, the patient was instructed to monitor blood pressure at home and consider medication if readings remain elevated. We also discussed the management of colitis with potential use of mesalamine and the plan for hemorrhoid treatment with rubber band ligation. Patient Instructions - Continue taking Remicade and prednisone as prescribed. - Follow up with the lung transplant team and continue pulmonary rehabilitation. - Take iron supplements with vitamin C to improve absorption. - Monitor blood pressure at home and record readings. - Follow up with hematology/oncology for DVT management. - Schedule and prepare for rubber band ligation for hemorrhoids. Medications: New ascorbic acid (vitamin C) 500 mg PO .QD 90 caps 1RF blood pressure monitor (Blood Pressure Kit) As directed 1 ea 0RF I10 - Essential (primary) hypertension, R03.0 - Elevated blood-pressure reading, without diagnosis of hypertension
[2025-01-04 08:21] VITALS: BP 142/88; PULSE 100; O2SAT 94; BMI 22.7
== END 2025-01-04 08:59 | disposition home or self-care (01) ==
LOC: HO.HMCH 08:18
PROVIDERS: PCP Internal Medicine; Visit Provider Internal Medicine
DX: D50.9 Iron deficiency anemia, unspecified (principal); I82.509 Chronic embolism and thrombosis of unspecified deep veins of unspecified lower extremity; J84.10 Pulmonary fibrosis, unspecified; E78.00 Pure hypercholesterolemia, unspecified; D68.59 Other primary thrombophilia; R73.02 Impaired glucose tolerance (oral); K76.0 Fatty (change of) liver, not elsewhere classified; K64.9 Unspecified hemorrhoids; D86.9 Sarcoidosis, unspecified; R03.0 Elevated blood-pressure reading, without diagnosis of hypertension

== ENCOUNTER 2025-01-15 07:57 | Outpatient (AMB) | payer OTHER, SELFPAY ==
--- OUTSIDE RECORDS SUMMARY | 2024-11-27 07:40 | XMS_ITS ---
Author Organization [facility] Address [address] [place] [address] Care Team Providers Care Direct Of Real Estate Name Role Phone Jaz Myers MD Primary Care Provider Mason Castro [phone] REASON FOR VISIT screening colonoscopy Encounters Encounter Location Date Provider Diagnosis [facility] [place] [address] [place] [phone] 11/27/2024 Mason Rock Plan Of Treatment No Information Progress Notes * NELLY OWENS EDOB:[birth year] (59 yo M)Acc No.[id number]:11/27/2024 COLON WITH MAC Patient: NELLY BRANHAM Provider: Vinicio Rock MD :1965 A ge:59 Y S ex:Male Date:11/27/2024 Address:[address] [place], [place] [phone] Pcp:Jaz Myers MD Subjective: * Chief Complaints: [...] Date: 11/27/2024 Generated for Castilloi ng/Fadaniellag/eTransmitting on: 01/15/2025 07:59 AM EDT
--- OUTSIDE RECORDS SUMMARY | 2024-12-01 15:12 | XMS_ITS ---
Author Organization [facility] Address [address] [place] [address] Care Team Providers Care Integrity Analyst Name Role Phone Jaz Myers MD Primary Care Provider Mason Castro [phone] REASON FOR VISIT ? need to treat colitis on 11/27 colon Encounters Encounter Location Date Provider Diagnosis [facility] [address] [place] [address] 12/01/2024 [place] Plan Of Treatment No Information Progress Notes * NELLY OWENS EDOB:[birth year] (59 yo M)Acc No.[id number]:12/01/2024 Patient: NELLY BRANHAM :1965 A ge:59 Y S ex:Male Address:[address] [place] [address], [address] Subjective: * Chief Complaints: * ? need to treat colitis on 11/27 colon * Medical History: * Surgical History: * Hospitalization/Major Diagno stic Procedure: * Medications: Objective: * Vitals: * Physical Examination: Assessment: Plan: * Treatment: * Procedure Codes: * * Date:
--- OUTSIDE RECORDS SUMMARY | 2025-01-15 08:00 | XMS_ITS | Clinical Summary ---
Author Organization [facility] Address [address] [place] [address] Phone Care Team Providers Care Speech Language Pathologist Name Role Phone Jaz Myers MD Primary Care Provider [phone] Radha Fox MD, S Unavailable Devyn Jay MD Unavailable [phone] Allergies No known active allergies Medications warfarin [...] bronch washings have tested positive for covid. Forensic Engineer saw ? Lesion on right vocal cord. [...] management of sarcoidosis (followed by pulmonology in [place]). Patient had been using supplemental oxygen increasingly, [...] dose until advised further by patient's primary participant administrator -Goal SpO2 with supplemental oxygen > 90% and < 96% -Outpatient follow-up with participant administrator in [place] Resolved Problems Problem Noted Date Diagnosed Date [...] Type Department Care Team Description 10/23/2024 Telephone [facility]Trans[facility] [address] [place] [phone] Wendy Keys 10/19/2024 Telephone [facility]Trans[facility] [address] [place] [address] Wendy Keys 10/19/2024 Orders Only [facility]Trans[facility] [address] [place] [id number] Juwan Branch MD Encounter for pre-transplant evaluation [...] 2016 ZOSTER VACCINES (1 of 2) 2016 INFLUENZA VACCINE (#1) 2024 , 02/18/2021, 02/15/2018 COVID-19 VACCINE (3 - 2024-2 6 season) 2025 08/21/2020, 07/30/2020 DEPRESSION SCREENING 05/19/2025 05/19/2024 LIPID [...] (08/03/2024 1:38 PM EDT) HCV Nonreactive Nonreactive [facility] 08/03/2024 1:38 PM EDT 08/03/2024 2:00 PM EDT Melinda Epps MD LAB BLOOD ORDERABLES Final Resul t Performing Organization Address City/[facility] Co de Phone Number [facility] [address] [place] [phone] * (ABNORMAL) Lipid panel (08/03/2024 1:38 PM EDT) CHOLESTEROL 253(H) <200 mg/dL [facility] TRIGLYCERIDES 255(H) 35 - 150 mg/dL [facility] HDL 100(H) 40 - 80 mg/dL [facility] CALCULATED LDL 102 50 - 129 mg/dL [facility] VLDL 51(H) <31 mg/dL [facility] CARDIAC RISK RATIO 2.5 0.0 - 4.0 [facility] 08/03/2024 1:38 PM EDT 08/03/2024 2:00 PM EDT Melinda Epps MD LAB BLOOD ORDERABLES Final Resul t Performing Organization Address [facility] Co de Phone Number [facility] [address] [place] [phone] from Last 3 Months or Most Recently Relevant to Health Maintenance [place] [address] [place] [address] [facility] [facility] [place] [address] [place] [address] [place] [address] [place] [address] [place] [address] [place] [address] [place] [address] [place] [address] ACO Advance Directives For more information, please contact: [phone] (9AM - 5PM [place], Wednesday-Wednesday) Documents on File Type Date Recorded Patient Apartment Property Manager Expl anation Healthcare Proxy 11/22/2023 5:32 PM [...] Status Communicated To: Inpatient Attending Care Teams Speech Language Pathologist Relationship Specialty Start Date End Date Jaz Myers MD [address] [place] [phone] PCP - General Internal Medicine 11/16/23 Radha Fox MD, S [address] [place] [id number] [email or web address] Referring Physician Pulmonary Disease 06/14/24 Devyn Jay MD [address] [place] [address] [address] [place] [address] Pulmonary Disease 09/08/24 Additional Source Comments The information contained in this document represents components of the legal health record. It is not the complete legal health record.[facility]
--- OUTSIDE RECORDS SUMMARY | 2025-01-15 08:00 | XMS_ITS | Encounter Summary ---
Author Organization [facility] Address [address] [place] [address] Phone Care Team Providers Care Signal Repairer Name Role Phone Jaz Myers MD Primary Care Provider [phone] Radha Fox MD, S Unavailable Devyn Jay MD Unavailable [phone] Encounter Details Date Type Department Care Team (Late st Contact Info) Description 11/17/2023 Procedure Pass [facility] Endoscopy Admitting Dept Virtual Department [address] [place] [address] Social History Tobacco Use Types Packs/Day Years [...] documented as of this encounter Care Teams Signal Repairer Relationship Specialty Start Date End Date Po, Jaz Whalen MD [address] [place] [address] PCP - General Internal Medicine 11/16/23 Radha Fox MD, S [address] [place] [address] [address] [place] [address] [email or web address] Referring Physician Pulmonary Disease 06/14/24 Devyn Jay MD [address] [place] [address] [address] [place] [address] Pulmonary Disease 09/08/24 documented as of this encounter Additional Source Comments The information contained in this document represents components of the legal health record. It is not the complete legal health record.[facility]
--- OUTSIDE RECORDS SUMMARY | 2025-01-15 08:00 | XMS_ITS ---
Author Organization [facility] Address [address] [place] [address] Phone Care Team Providers Care Spinning Frame Tender Name Role Phone Jaz Myers MD Primary Care Provider [phone] Radha Fox MD, S Unavailable Devyn Jay MD Unavailable [phone] Transplant Episode Lung Candidate [facility] [place] began on 06/19/2024 Marked as Deferred on 10/18/2024 Reason: Unable to Contact Patient Lung CoordinatorAna Da Silva RN Email: [email or web address] Scores Score Value Updated Exceptions/Reas ons CPRA 0 08/03/2024 LAS Not available Care Team Name Role Phone Fax Email Ana Da Silva RN Lung Coordinator [phone] [email or web address] Giovana Self Vice President Of Human Resources [phone] [email or web address] Radha Fox MD, S Referring Physician [phone] [email or web address] Evette Reilly Paramedical Aide N/A N/A [email or web address] Pre-Transplant Referred: 06/14/2024 Evaluation began: 06/19/2024
--- OUTSIDE RECORDS SUMMARY | 2025-01-15 08:00 | XMS_ITS | Encounter Summary ---
Author Organization [facility] Address [address] [place] [address] Phone Care Team Providers Care Rice Cleaning Machine Tender Name Role Phone Jaz Myers MD Primary Care Provider [phone] Radha Fox MD, S Unavailable Devyn Jay MD Unavailable [phone] Encounter Details Date Type Department Care Team (Late st Contact Info) Description 11/16/2023 Procedure Pass [facility], Ct Scan - [address] [address] Social History Tobacco Use Types Packs/Day Years [...] 5:07 PM EDT Nany Warren RN * [place] Suicide Severity Rating Scale (Screener/Recent Self-Report) Question [...] documented as of this encounter Care Teams Rice Cleaning Machine Tender Relationship Specialty Start Date End Date Jaz Myers MD [address] [place] [phone] PCP - General Internal Medicine 11/16/23 Radha Fox MD, S [address] [place] [phone] [email or web address] Referring Physician Pulmonary Disease 06/14/24 Devyn Jay MD [address] [place] [address] Pulmonary Disease 09/08/24 documented as of this encounter Additional Source Comments The information contained in this document represents components of the legal health record. It is not the complete legal health record.[facility]
--- OUTSIDE RECORDS SUMMARY | 2025-01-15 08:00 | XMS_ITS | Encounter Summary ---
Author Organization [facility] Address [address] [place] [address] Phone Care Team Providers Care Bird Raiser Name Role Phone Jaz Myers MD Primary Care Provider [phone] Radha Fox MD, S Unavailable Devyn Jay MD Unavailable [phone] Encounter Details Date Type Department Care Team (Late st Contact Info) Description 05/19/2024 Procedure Pass [facility] [address] [place] [address] Social History Tobacco Use Types Packs/Day Years [...] documented as of this encounter Care Teams Bird Raiser Relationship Specialty Start Date End Date Po, Jaz Whalen MD [address] [place] [address] PCP - General Internal Medicine 11/16/23 Radha Fox MD, S [address] [facility] 3 [place] [address] [email or web address] Referring Physician Pulmonary Disease 06/14/24 Devyn Jay MD [address] [facility] 200 [place] [address] Pulmonary Disease 09/08/24 documented as of this encounter Additional Source Comments The information contained in this document represents components of the legal health record. It is not the complete legal health record.[facility]
--- OUTSIDE RECORDS SUMMARY | 2025-01-15 08:00 | XMS_ITS | Encounter Summary ---
Author Organization [facility] Address [address] [facility] [address] [place] [address] Phone Care Team Providers Care Sand Digger Name Role Phone Jaz Myers MD Primary Care Provider [phone] Radha Fox MD, S Unavailable Devyn Jay MD Unavailable [phone] Encounter Details Date Type Department Care Team (Late st Contact Info) Description 05/19/2024 Procedure Pass [facility] Echocardiography [address] [place] [address] Social History Tobacco Use Types Packs/Day Years [...] documented as of this encounter Care Teams Sand Digger Relationship Specialty Start Date End Date Jaz Myers MD [address] [place] [address] PCP - General Internal Medicine 11/16/23 Radha Fox MD, S 75 [facility] 3 [place] [address] [email or web address] Referring Physician Pulmonary Disease 06/14/24 Devyn Jay MD 175 [facility] 200 [place] [address] Pulmonary Disease 09/08/24 documented as of this encounter Additional Source Comments The information contained in this document represents components of the legal health record. It is not the complete legal health record.[facility]
--- OUTSIDE RECORDS SUMMARY | 2025-01-15 08:00 | XMS_ITS | Patient Health Record ---
Author Organization [facility] Address [address] [place] [address] Care Team Providers Care Plastic Sheets Supervisor Name Role Phone Jaz Myers MD Primary Care Provider Mason Castro [phone] Allergies No Known Allergies Results Component Value Reference Range Notes Prothrombin Time INR Reviewed date:11/28/2024 10:12:07 AM Interpretation: Performing Lab:[facility], [address] [place] [phone] Notes/Report: Prothrombin Time 11.8 10.9-12.4 SEC INTERNATIONAL [...] (Not yet reviewed by provider) Interpretation: Performing Lab:[facility], [address] [place] [phone] Notes/Report: Reason For Referral No Information Medications [...] Status Risk Notes Problem Colon cancer screening (124337339) Colon cancer screening (Z12.11) Active confirmed Problem 67996869 Rectal bleeding (K62.5) Active confirmed Problem 807170467 History of adenomatous polyp of colon (Z86.010) Active confirmed Problem Preprocedural examination (515164522218410) Preprocedural examination (Z01.818) Active confirmed Problem Diverticulosis of colon (198100813) Diverticulosis of colon (K57.30) Active confirmed Vital Signs Temperature 97.8 degrees Fahrenheit 09/06/2024 Blood pressure diastolic 01 mm Hg 09/06/2024 Height 64 in 09/06/2024 Blood pressure systolic 001 mm Hg 09/06/2024 Weight 136 lbs 09/06/2024 BMI 23.34 kg/m2 09/06/2024 Procedures Procedure Date Ordered Date Performed Result Body Sit e COLONOSCOPY 09/06/2024 N/A Encounters Encounter Location Date Provider Diagnosis [facility] [place] [address] [place] [id number] 11/27/2024 Mason Rock [facility] [address] [place] [address] 09/06/2024 Mason Rock History of adenomato us polyp of colon Z86.010 ; Preprocedural examination Z01.818 and Colon cancer screening Z12.11 [facility] [address] [place] [address] 12/01/2024 Mason Rock [facility] [address] [place] [address] 09/06/2024 Mason Rock [facility] [address] [place] [address] 11/20/2024 Mason Rock Assessments Encounter Date Diagnosis [...] cleared for a potential lung transplant in [place]. As such I will plan to arrange this for him. He will need to stop Coumadin for 5 days prior to the procedure and obtain a prescription and instructions for Lovenox use from Dr. Calabrese. We will also need to obtain clearance and some records from both Dr. Da Silva and the lung transplant clinic at [facility]. Full consent has been obtained from [...] cleared for a potential lung transplant in [place]. As such I will plan to arrange this for him. He will need to stop Coumadin for 5 days prior to the procedure and obtain a prescription and instructions for Lovenox use from Dr. Calabrese. We will also need to obtain clearance and some records from both Dr. Da Silva and the lung transplant clinic at [facility]. Full consent has been obtained from [...] cleared for a potential lung transplant in [place]. As such I will plan to arrange this for him. He will need to stop Coumadin for 5 days prior to the procedure and obtain a prescription and instructions for Lovenox use from Dr. Calabrese. We will also need to obtain clearance and some records from both Dr. Da Silva and the lung transplant clinic at [facility]. Full consent has been obtained from [...] Insured Coverage Start Date Coverage End Date [facility] [address] [address] [place], [place] [id number] MAX OWENS Self - patient is the insured [facility]ID [facility] [address] [place] [address] [id number] MAX OWENS Self - patient is the insured Medical (General) History Medical History History ICD Code Denies IN,DM,CVA,Lung disease,renal dise ase Pulmonary Sarcoidosis--it has also [...] [place] Dr. [place] [facility] [place] and the lung transplant center at [facility] in [place].He is currently on 2 L of nasal cannula 24 hours a day as of the August 2024 office visit. Surgical History Surgery Date(Month/Year) Hernia repair--umbilical 2017
--- OUTSIDE RECORDS SUMMARY | 2025-01-15 08:00 | XMS_ITS | Encounter Summary ---
Author Organization [facility] Address [address] [place] [address] Phone Care Team Providers Care Prop And Effects Designer Name Role Phone Jaz Myers MD Primary Care Provider [phone] Radha Fox MD, S Unavailable Devny Jay MD Unavailable [phone] Encounter Details Date Type Department Care Team (Late st Contact Info) Description 05/24/[address] [facility] EKG [address] [place] [address] Jaz Myers MD [address] [place] [address] Social History Tobacco Use Types [...] documented as of this encounter Care Teams Prop And Effects Designer Relationship Specialty Start Date End Date Po, Jaz Whalen MD [address] [place] [address] [address] [place] [address] PCP - General Internal Medicine 11/16/23 Radha oFx MD, S [address] [place] [address] 3 [place] [address] Referring Physician Pulmonary Disease 06/14/24 Devyn Jay MD [address] [place] [address] 200 [place] [address] Pulmonary Disease 09/08/24 documented as of this encounter Additional Source Comments The information contained in this document represents components of the legal health record. It is not the complete legal health record.[facility]
--- OUTSIDE RECORDS SUMMARY | 2025-01-15 08:00 | XMS_ITS | Encounter Summary ---
Author Organization [facility] Address [address] [place] [address] Phone Care Team Providers Care Salvage Winder Name Role Phone Jaz Myers MD Primary Care Provider [phone] Radha Fox MD, S Unavailable Devyn Jay MD Unavailable [phone] Reason for Referral * MRI/CAT Scan - Closed Specialty Diagnoses / Procedures Referred By Contac t Referred To Contact Radiology Diagnoses Interstitial lung disease Procedures NC PET/CT Cardiac Sarcoid PET/SPECT NC SPECT MYOCARDIAL VIABILITY CHG MYOCRD IMG PET METAB EVAL SINGLE STUDY CNCRNT CT CHG MYOCARDIAL SPECT SINGLE STUDY AT REST OR STRESS Radha Fox MD, S [address] [address] Phone: tel: fax: mailto:[email or web address] Referral ID Status Reason Start Date Expiration Date Visits Re quested Visits Authorized [id number] Closed 06/21/2024 08/29/2024 1 1 Encounter Details Date Type Department Care Team (Latest Contact Info) Description 06/16/2024 Ancillary Orders [facility] Lung Center-Pulmonary Medicine 15 [place] [address] Radha Fox MD, S [address] [place] [address] [email or web address] Interstitial lung disease (Primary Dx) Social History [...] 06/19/2024 9:22 AM Beth [place] RN * [place] Suicide Severity Rating Scale (Screener/Recent Self-Report) Question Answer Date of Assessment Author 1. Wish to be (Past 1 Month) No 06/19/2024 9:22 AM Beth Fernando RN 2. Non-Specific Active Suicidal Thoughts (Past 1 Month) No 06/19/2024 9:22 AM Beth Fernando RN 6. Suicidal Behavior (Lifetime) No 06/19/2024 9:22 AM GUILLERMO ElkoBeth nelson Nav orozco RN documented as of [...] documented as of this encounter Care Teams Salvage Winder Relationship Specialty Start Date End Date Jaz Myers MD [address] [place] [address] PCP - General Internal Medicine 11/16/23 Radha Fox MD, S [address] [place] [address] 3 [place] [address] Referring Physician Pulmonary Disease 06/14/24 Devyn Jay MD [address] [place] [address] 200 [place] [address] Pulmonary Disease 09/08/24 documented as of this encounter Additional Source Comments The information contained in this document represents components of the legal health record. It is not the complete legal health record.[facility]
[2025-01-15 08:10] LABS: Prothrombin Time Whole Bld POC 32.7 sec (11.1-13.5); ~PT, ~INR - Anti Coag Clinic 2.7 (0.9-1.1)
--- NOTE | 2025-01-15 08:11 | MHC.OFFVISCO ---
Intake Intake Visit Reasons: Anticoagulation Allergies No Known Allergies (No Known Allergies*) Allergy (Verified 01/15/25 08:06) Medication List - Last Reconciled 01/15/25 by Mami Springer RN albuterol sulfate 90 mcg/actuation 2 inhalations inhalation Q6H PRN 30 days ascorbic acid (vitamin C) 500 mg PO .QD blood pressure monitor (Blood Pressure Kit) As directed calcium citrate 1,000 mg PO DAILY cetirizine 10 mg PO DAILY PRN chlorpheniramine maleate (Allergy Relief (chlorpheniramine)) 4 mg PO Q6H PRN cholecalciferol (vitamin D3) (Vitamin D3) 100 mcg (2 x 50 mcg (2,000 unit)) PO DAILY 30 days clotrimazole 1% 1 appl topical BID 4 weeks ferrous sulfate (Feosol) 325 mg PO BID 30 days infliximab (Remicade) 336 mg IV Q4W 12 months nintedanib (Ofev) 150 mg PO Q12H 30 days omeprazole 40 mg PO DAILY Oxygen Home Use As directed prednisolone acetate 1% (Pred Forte) 1 drp ophthalmic (eye) BEDTIME prednisone 20 mg PO QAM warfarin (Jantoven) 4 mg See Protocol PO BEDTIME Nursing Note INR: 2.7 in therapeutic range of 2-3 Medications and supplements reviewed No changes in health, diet, medications, or supplements, Denies any signs and symptoms of bleeding or bruising or clotting. Bleeding, bruising, clotting discussed Nutritional guidance given Dose: 4mg X 5 days and 2mg X 2 days F/U INR: 2 weeks Patient verbalizes understanding of instructions given Anti-Coag Initial Assessment Social Hx Patient Tobacco Use Status: Never used Tobacco Tobacco use type: Cigarette alcohol intake: current Alcohol intake frequency: does not drink Coding Level of Care Code Est Patient Level 1 Diagnoses Current use of anticoagulant therapy Z79.01 Assessment & Plan Assessment & Plan (1) Current use of anticoagulant therapy: Code(s): Z79.01 - group home (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
== END 2025-01-15 08:16 | disposition home or self-care (01) ==
LOC: HO.ACS 07:57
PROVIDERS: PCP Internal Medicine; Visit Provider Internal Medicine Medical Oncology
DX: Z79.01 Long term (current) use of anticoagulants (principal)

== ENCOUNTER → 2025-01-15 07:57 | Outpatient (BNVA) | payer OTHER, SELFPAY | PROVIDERS: PCP Internal Medicine; Visit Provider Internal Medicine Medical Oncology | DX: I82.402 Acute embolism and thrombosis of unspecified deep veins of left lower extremity (principal); Z79.01 Long term (current) use of anticoagulants; Z51.81 Encounter for therapeutic drug level monitoring | CPT/HCPCS: 85610; 99211 ==

== ENCOUNTER 2025-01-24 09:19 | Outpatient (AMB) | payer OTHER, SELFPAY ==
--- OUTSIDE RECORDS SUMMARY | 2024-11-27 07:40 | XMS_ITS ---
Author Organization [facility] Address [address] [place] [address] Care Team Providers Care Miniature Set Constructor Name Role Phone Jaz Myers MD Primary Care Provider Mason Castro [phone] REASON FOR VISIT screening colonoscopy Encounters Encounter Location Date Provider Diagnosis [facility] [place] Out[place] [address] [place] [id number] 11/27/2024 Mason Rock Plan Of Treatment No Information Progress Notes * NELLY OWENS EDOB:[birth year] (59 yo M)Acc No.[id number]:11/27/2024 COLON WITH MAC Patient: NELLY BRANHAM Provider: Vinicio Rock MD :1965 A ge:59 Y S ex:Male Date:11/27/2024 Address:[address] [place], [place] [phone] Pcp:Jaz Myers MD Subjective: * Chief Complaints: [...] Date: 11/27/2024 Generated for Castilloi ng/Fadaniellag/eTransmitting on: 01/24/2025 10:58 AM EDT
--- OUTSIDE RECORDS SUMMARY | 2024-12-01 15:12 | XMS_ITS ---
Author Organization [facility] Address [address] [place] [address] Care Team Providers Care Control Clerk Name Role Phone Jaz Myers MD Primary Care Provider Mason Castro [phone] REASON FOR VISIT ? need to treat colitis on 11/27 colon Encounters Encounter Location Date Provider Diagnosis [facility] [address] [place] [address] 12/01/2024 [place] Plan Of Treatment No Information Progress Notes * NELLY OWENS EDOB:[birth year] (59 yo M)Acc No.[id number]:12/01/2024 Patient: NELLY BRANHAM :1965 A ge:59 Y S ex:Male Address:[address] [place] [address], [address] Subjective: * Chief Complaints: * ? need to treat colitis on 11/27 colon * Medical History: * Surgical History: * Hospitalization/Major Diagno stic Procedure: * Medications: Objective: * Vitals: * Physical Examination: Assessment: Plan: * Treatment: * Procedure Codes: * * Date:
[2025-01-24 09:33] VITALS: BP 144/74; PULSE 92; BMI 23.5
--- NOTE | 2025-01-24 09:33 | MHC.OFFVIS ---
Vital Signs 01/24/25 09:33 Height 5 ft 4 in Weight 137 lb BMI 23.5 BP 144/74 H Blood Pressure Location Rt brachial Position Sitting Pulse 92 Intake Visit Reasons: rubber band procedure for hemorrhoids Intake Note: Patient here for rubber band ligation to small external hemorrhoids. Patient c/o: noticed some mild bleeding after BM. Primary Care Nurse Required: No Accompanied by: Self / Same As Patient Allergies No Known Allergies (No Known Allergies*) Allergy (Verified 01/24/25 09:34) HPI HPI rubber band procedure for hemorrhoids: Details: He is here for rubber band ligation of hemorrhoids. PFSH Medical History Oxygen dependent Bleeding hemorrhoids Pneumonia due to COVID-19 virus Pulmonary fibrosis ILD (interstitial lung disease) Bronchomalacia Sarcoidosis Pulmonary nodules Obesity (BMI 30.0-34.9) LFT elevation Hyperkalemia Glaucoma BPH (benign prostatic hyperplasia) Vitamin D deficiency Hypercholesterolemia Protein S deficiency DVT (deep venous thrombosis) Thrombocytopenia Surgical History History of bronchoscopy History of right inguinal hernia repair Hx of lymph node biopsy Hx of colonoscopy History of umbilical hernia repair History of appendectomy History of sinus surgery Family History Mother No problems noted. Father Medical history unknown Daughter In good health Sister In good health Brother Lung cancer Social History Household Members: Significant Other Housing: House Are you a primary career center advisor to a significant other at home: No Do you presently have visiting nurse or other home services: Yes (medical supply for O2) Alcohol intake: current Alcohol intake frequency: does not drink Comment: 3x a year 2 drinks Patient Tobacco Use Status: Never used Tobacco Tobacco use type: Cigarette e-Cigarette/Vaping Use: Never Used Second Hand Smoke Exposure: No service: No Current occupational status: employed Cognitive needs: No Hearing needs: No Vision needs: Yes Review of Systems Const Denies chills and Denies fever(s) Card Reports dyspnea and Reports dyspnea on exertion Resp Reports dyspnea and Reports dyspnea on exertion GI Reports hematochezia Physical Exam Vital Signs: Last Vital Signs Pulse 92 01/24/25 09:33 BP 144/74 H 01/24/25 09:33 BMI result Body Mass Index 23.5 Const Other: Has shortness of breath, on O2 General: comfortable and no acute distress Resp Other: On O2 supplement, mildly short of breath Cardio Rate: regular rate GI Palpation (GI): Soft to palpation Office Procedures Hemorrhoid Procedure: Rubber band ligation of hemorrhoids x2 He was in healing delfina-knife position. The anoscope was gently inserted. A full examination of the anal canal was done. Two prominent internal hemorrhoidal columns were seen on the left. I applied the rubber band on both of these internal hemorrhoidal columns using the applicator. Tolerated procedure well. There was no bleeding He denied any pain postop. Assessment & Plan Assessment & Plan (1) Bleeding hemorrhoids: Code(s): K64.9 - Unspecified hemorrhoids Category: Medical Plan: Rubber band ligation was done in the office. I will see him again in the office in about a month. We may need to be more rubber band ligation down the line. Coding Level of Care Code Est Pt Level 3 (03171) Diagnoses Bleeding hemorrhoids K64.9
--- OUTSIDE RECORDS SUMMARY | 2025-01-24 10:58 | XMS_ITS | Encounter Summary ---
Author Organization [facility] Address [address] [place] [address] Phone Care Team Providers Care Foundry Superintendant Name Role Phone Jaz Myers MD Primary Care Provider [phone] Radha Fox MD, S Unavailable Devyn Jay MD Unavailable [phone] Encounter Details Date Type Department Care Team (Late st Contact Info) Description 11/16/2023 Procedure Pass [facility], Ct Scan - [address] [address] Social History Tobacco Use Types Packs/Day Years [...] 5:07 PM EDT Nany Warren RN * [place] Suicide Severity Rating Scale (Screener/Recent Self-Report) Question [...] documented as of this encounter Care Teams Foundry Superintendant Relationship Specialty Start Date End Date Jaz Myers MD [address] [place] [address] PCP - General Internal Medicine 11/16/23 Radha Fox MD, S [address] [place] [address] [email or web address] Referring Physician Pulmonary Disease 06/14/24 Devyn Jay MD [address] [place] [address] Pulmonary Disease 09/08/24 documented as of this encounter Additional Source Comments The information contained in this document represents components of the legal health record. It is not the complete legal health record.[facility]
--- OUTSIDE RECORDS SUMMARY | 2025-01-24 10:58 | XMS_ITS | Patient Health Record ---
Author Organization [facility] Address [address] [place] [address] Care Team Providers Care Shoemaking Finisher Name Role Phone Jaz Myers MD Primary Care Provider Mason Castro [phone] Allergies No Known Allergies Results Component Value Reference Range Notes Prothrombin Time INR Reviewed date:11/28/2024 10:12:07 AM Interpretation: Performing Lab:[facility], [address] [place] [phone] Notes/Report: Prothrombin Time 11.8 10.9-12.4 SEC INTERNATIONAL [...] (Not yet reviewed by provider) Interpretation: Performing Lab:[facility], [address] [place] [phone] Notes/Report: Reason For Referral No Information Medications [...] Status Risk Notes Problem Colon cancer screening (356534308) Colon cancer screening (Z12.11) Active confirmed Problem 31428714 Rectal bleeding (K62.5) Active confirmed Problem 481256527 History of adenomatous polyp of colon (Z86.010) Active confirmed Problem Preprocedural examination (745539477065465) Preprocedural examination (Z01.818) Active confirmed Problem Diverticulosis of colon (511382670) Diverticulosis of colon (K57.30) Active confirmed Vital Signs Temperature 97.8 degrees Fahrenheit 09/06/2024 Blood pressure diastolic 01 mm Hg 09/06/2024 Height 64 in 09/06/2024 Blood pressure systolic 001 mm Hg 09/06/2024 Weight 136 lbs 09/06/2024 BMI 23.34 kg/m2 09/06/2024 Procedures Procedure Date Ordered Date Performed Result Body Sit e COLONOSCOPY 09/06/2024 N/A Encounters Encounter Location Date Provider Diagnosis [facility] Outpatient [address] [place] [id number] 11/27/2024 Mason Rock [facility] [address] [place] [address] 09/06/2024 Mason Rock History of adenomato us polyp of colon Z86.010 ; Preprocedural examination Z01.818 and Colon cancer screening Z12.11 [facility] [address] [place] [address] 12/01/2024 Mason Rock [facility] [address] [place] [address] 09/06/2024 Mason Rock [facility] [address] [place] [address] 11/20/2024 Mason Rock Assessments Encounter Date Diagnosis [...] cleared for a potential lung transplant in [place]. As such I will plan to arrange [...] cleared for a potential lung transplant in [place]. As such I will plan to arrange [...] cleared for a potential lung transplant in [place]. As such I will plan to arrange [...] Insured Coverage Start Date Coverage End Date [facility] [address] [address] [place], [place] [id number] MAX OWENS Self - patient is the insured MEDICAID OF [employer] [address] [place] [address] [id number] MAX OWENS Self - patient is the [...] followed by Dr. Da Silva at [facility] Pulmonary Department and the lung transplant center at [facility] in [place].He is currently on 2 L of nasal cannula 24 hours a day as of the August 2024 office visit. Surgical History Surgery Date(Month/Year) Hernia repair--umbilical 2017
--- OUTSIDE RECORDS SUMMARY | 2025-01-24 10:58 | XMS_ITS | Encounter Summary ---
Author Organization [facility] Address [address] [place] [address] Phone Care Team Providers Care Slicer Machine Operator Name Role Phone Jaz Myers MD Primary Care Provider [phone] Radha Fox MD, S Unavailable Devyn Jay MD Unavailable [phone] Reason for Referral * MRI/CAT Scan - Closed Specialty Diagnoses / Procedures Referred By Contac t Referred To Contact Radiology Diagnoses Interstitial lung disease Procedures NC PET/CT Cardiac Sarcoid PET/SPECT NC SPECT MYOCARDIAL VIABILITY CHG MYOCRD IMG PET METAB EVAL SINGLE STUDY CNCRNT CT CHG MYOCARDIAL SPECT SINGLE STUDY AT REST OR STRESS Radha Fox MD, S [address] [address] Phone: tel: fax: mailto:[email or web address] Referral ID Status Reason Start Date Expiration Date Visits Re quested Visits Authorized [id number] Closed 06/21/2024 08/29/2024 1 1 Encounter Details Date Type Department Care Team (Latest Contact Info) Description 06/16/2024 Ancillary Orders [facility] Lung Center-Pulmonary Medicine [address] [place] [address] Radha Fox MD, S [address] [place] [address] [email or web address] Interstitial lung disease (Primary Dx) Social History [...] 06/19/2024 9:22 AM Beth [place] RN * [place] Suicide Severity Rating Scale (Screener/Recent Self-Report) Question Answer Date of Assessment Author 1. Wish to be (Past 1 Month) No 06/19/2024 9:22 AM Beth Fernando RN 2. Non-Specific Active Suicidal Thoughts (Past 1 Month) No 06/19/2024 9:22 AM Beth Fernando RN 6. Suicidal Behavior (Lifetime) No 06/19/2024 9:22 AM GUILLERMO RocklandBeth nelson Nav orozco RN documented as of [...] EDT Dear Dr. Fox, Your patient Max Daneils, a 58 year old men with pulmonary [...] documented as of this encounter Care Teams Slicer Machine Operator Relationship Specialty Start Date End Date Jaz Myers MD [address] [place] [address] PCP - General Internal Medicine 11/16/23 Radha Fox MD, S [address] [place] [address] 3 [place] [address] Referring Physician Pulmonary Disease 06/14/24 Devyn Jay MD [address] [place] [address] 200 [place] [address] Pulmonary Disease 09/08/24 documented as of this encounter Additional Source Comments The information contained in this document represents components of the legal health record. It is not the complete legal health record.[facility]
--- OUTSIDE RECORDS SUMMARY | 2025-01-24 10:58 | XMS_ITS | Encounter Summary ---
Author Organization [facility] Address [address] [facility] [address] [facility] [address] [place] [address] Phone Care Team Providers Care Emergency Medical Services Coordinator Name Role Phone Jaz Myers MD Primary Care Provider [phone] Radha Fox MD, S Unavailable Devyn Jay MD Unavailable [phone] Encounter Details Date Type Department Care Team (Late st Contact Info) Description 11/17/2023 Procedure Pass [facility] Endoscopy Admitting Dept Virtual Department [address] [place] [address] Social History Tobacco Use Types Packs/Day Years [...] documented as of this encounter Care Teams Emergency Medical Services Coordinator Relationship Specialty Start Date End Date Po, Jaz Whalen MD [address] [place] [address] PCP - General Internal Medicine 11/16/23 Radha Fox MD, S [address] [place] [address] 3 [place] [address] [email or web address] Referring Physician Pulmonary Disease 06/14/24 Devyn Jay MD [address] [place] [address] 200 [place] [address] Pulmonary Disease 09/08/24 documented as of this encounter Additional Source Comments The information contained in this document represents components of the legal health record. It is not the complete legal health record.[facility]
--- OUTSIDE RECORDS SUMMARY | 2025-01-24 10:58 | XMS_ITS ---
Author Organization [facility] Address [address] [facility] [address] [facility] [address] [place] [address] Phone Care Team Providers Care Director Of Rotc Name Role Phone Jaz Myers MD Primary Care Provider [phone] Radha Fox MD, S Unavailable Devyn Jay MD Unavailable [phone] Transplant Episode Lung Candidate [facility] ([place] [place] Evaluation began on 06/19/2024 Marked as Deferred on 10/18/2024 Reason: Unable to Contact Patient Lung CoordinatorAna Da Silva RN Email: [email or web address] Scores Score Value Updated Exceptions/Reas ons CPRA 0 08/03/2024 LAS Not available Care Team Name Role Phone Fax Email Ana Da Silva RN Lung Coordinator [phone] [email or web address] Giovana Self Fell Cutter [phone] [email or web address] Radha Fox MD, S Referring Physician [phone] [email or web address] Evette Reilly Sow Farm Barn Technician N/A N/A [email or web address] Pre-Transplant Referred: 06/14/2024 Evaluation began: 06/19/2024
--- OUTSIDE RECORDS SUMMARY | 2025-01-24 11:00 | XMS_ITS | Encounter Summary ---
Author Organization [facility] Address [address] [place] [address] Phone Care Team Providers Care Unit Operator Name Role Phone Jaz Myers MD Primary Care Provider [phone] Radha Fox MD, S Unavailable Devyn Jay MD Unavailable [phone] Encounter Details Date Type Department Care Team (Late st Contact Info) Description 05/19/2024 Procedure Pass [facility] [address] [place] [address] Social History Tobacco Use Types Packs/Day Years [...] documented as of this encounter Care Teams Unit Operator Relationship Specialty Start Date End Date Po, Jaz Whalen MD [address] [place] [address] PCP - General Internal Medicine 11/16/23 Radha Fox MD, S [address] [facility] 3 [place] [address] [email or web address] Referring Physician Pulmonary Disease 06/14/24 Devyn Jay MD [address] [facility] 200 [place] [address] Pulmonary Disease 09/08/24 documented as of this encounter Additional Source Comments The information contained in this document represents components of the legal health record. It is not the complete legal health record.[facility]
--- OUTSIDE RECORDS SUMMARY | 2025-01-24 11:00 | XMS_ITS | Encounter Summary ---
Author Organization [facility] Address [address] [facility] [address] [place] [address] Phone Care Team Providers Care Ios Programmer Name Role Phone Jaz Myers MD Primary Care Provider [phone] Radha Fox MD, S Unavailable Devyn Jay MD Unavailable Encounter Details Date Type Department Care Team (Late st Contact Info) Description 05/24/2024 Transcribe Orders [facility] EKG [address] [place] [address] Jaz Myers MD [address] [place] [address] Social History Tobacco Use Types [...] documented as of this encounter Care Teams Ios Programmer Relationship Specialty Start Date End Date Po, Jaz Whalen MD [address] [place] [address] Drive [address] [place] [address] PCP - General Internal Medicine 11/16/23 Radha Fox MD, S [address] [place] [address] 3 [place] [address] Referring Physician Pulmonary Disease 06/14/24 Devyn Jay MD [address] [place] [address] 200 [place] [address] Pulmonary Disease 09/08/24 documented as of this encounter Additional Source Comments The information contained in this document represents components of the legal health record. It is not the complete legal health record.[facility]
--- OUTSIDE RECORDS SUMMARY | 2025-01-24 11:00 | XMS_ITS | Encounter Summary ---
Author Organization [facility] Address [address] [facility] [address] [address] [facility] [address] [place] [address] Phone Care Team Providers Care Car Pick Up Driver Name Role Phone Jaz Myers MD Primary Care Provider [phone] Radha Fox MD, S Unavailable Devyn Jay MD Unavailable [phone] Encounter Details Date Type Department Care Team (Late st Contact Info) Description 05/19/2024 Procedure Pass [facility] Echocardiography [address] [place] [address] Social History Tobacco Use Types Packs/Day Years [...] documented as of this encounter Care Teams Car Pick Up Driver Relationship Specialty Start Date End Date Jaz Myers MD [address] [place] [address] PCP - General Internal Medicine 11/16/23 Radha Fox MD, S [address] [facility] 3 [place] [address] [email or web address] Referring Physician Pulmonary Disease 06/14/24 Devyn Jay MD [address] [facility] 200 [place] [address] Pulmonary Disease 09/08/24 documented as of this encounter Additional Source Comments The information contained in this document represents components of the legal health record. It is not the complete legal health record.[facility]
--- OUTSIDE RECORDS SUMMARY | 2025-01-24 11:00 | XMS_ITS | Clinical Summary ---
Author Organization [facility] Address [address] [facility] [address] [facility] [address] [place] [address] Phone Care Team Providers Care Completions Manager Name Role Phone Jaz Myers MD Primary Care Provider [phone] Radha Fox MD, S Unavailable Devyn Jay MD Unavailable [phone] Allergies No known active allergies Medications warfarin [...] bronch washings have tested positive for covid. Welder Assistant saw ? Lesion on right vocal cord. [...] management of sarcoidosis (followed by pulmonology in [place]). Patient had been using supplemental oxygen increasingly, [...] dose until advised further by patient's primary mcat tutor -Goal SpO2 with supplemental oxygen > 90% and < 96% -Outpatient follow-up with mcat tutor in [place] Resolved Problems Problem Noted Date Diagnosed Date [...] DVT he had years ago. Continue coumadin Immunizations Immunization Administration Dates Next Due COVID-19, [...] ecorded Are you denied basic needs [facility] as food, clothing, or medical care? No [...] (08/03/2024 1:38 PM EDT) HCV Nonreactive Nonreactive [facility] 08/03/2024 1:38 PM EDT 08/03/2024 2:00 PM EDT us Melinda Epps MD LAB BLOOD ORDERABLES Final Resul t [facility] [address] [place] [phone] * (ABNORMAL) Lipid panel (08/03/2024 1:38 PM EDT) CHOLESTEROL 253(H) <200 mg/dL [facility] TRIGLYCERIDES 255(H) 35 - 150 mg/dL [facility] HDL 100(H) 40 - 80 mg/dL [facility] CALCULATED LDL 102 50 - 129 mg/dL [facility] VLDL 51(H) <31 mg/dL [facility] CARDIAC RISK RATIO 2.5 0.0 - 4.0 [facility] 08/03/2024 1:38 PM EDT 08/03/2024 2:00 PM EDT us Melinda Epps MD LAB BLOOD ORDERABLES Final Resul t [facility] [address] [place] [phone] from Last 3 Months or Most Recently Relevant to Health Maintenance [place] [address] [place] [address] [place] [address] [place] [address] [place] [address] [place] [address] A[employer] Advance Directives For more information, please contact: [phone] (9AM - 5PM Karla/[facility], Wednesday-Wednesday) Documents on File Type Date Recorded Patient Security Consultant Expl anation Healthcare Proxy 11/22/2023 5:32 PM [...] Status Communicated To: Inpatient Attending Care Teams Completions Manager Relationship Specialty Start Date End Date Po, Jaz Whalen MD [address] [place] [address] PCP - General Internal Medicine 11/16/23 Radha Fox MD, [facility] [address] [place] [id number] [email or web address] Referring Physician Pulmonary Disease 06/14/24 Devyn Jay MD [address] [place] [address] 200 [place] [address] Pulmonary Disease 09/08/24 Additional Source Comments The information contained in this document represents components of the legal health record. It is not the complete legal health record.[facility]
== END 2025-01-24 09:50 | disposition home or self-care (01) ==
LOC: HO.HGS 09:20
PROVIDERS: PCP Internal Medicine; Visit Provider Surgery
DX: K64.9 Unspecified hemorrhoids (principal)
CPT/HCPCS: 99213

== ENCOUNTER → 2025-01-24 09:19 | Outpatient (BNVA) | payer OTHER, SELFPAY | PROVIDERS: PCP Internal Medicine; Visit Provider Surgery | DX: K64.9 Unspecified hemorrhoids (principal) | CPT/HCPCS: 99212 ==

== ENCOUNTER 2025-01-30 08:01 | Outpatient (AMB) | payer OTHER, SELFPAY ==
--- NOTE | 2025-01-30 08:19 | MHC.OFFVISCO ---
Intake Intake Visit Reasons: Anticoagulation Allergies No Known Allergies (No Known Allergies*) Allergy (Verified 01/30/25 08:04) Medication List - Last Reconciled 01/30/25 by Macria Dave RN albuterol sulfate 90 mcg/actuation 2 inhalations inhalation Q6H PRN 30 days ascorbic acid (vitamin C) 500 mg PO .QD blood pressure monitor (Blood Pressure Kit) As directed calcium citrate 1,000 mg PO DAILY cetirizine 10 mg PO DAILY PRN chlorpheniramine maleate (Allergy Relief (chlorpheniramine)) 4 mg PO Q6H PRN cholecalciferol (vitamin D3) (Vitamin D3) 100 mcg (2 x 50 mcg (2,000 unit)) PO DAILY 30 days clotrimazole 1% 1 appl topical BID 4 weeks ferrous sulfate (Feosol) 325 mg PO BID 30 days infliximab (Remicade) 336 mg IV Q4W 12 months nintedanib (Ofev) 150 mg PO Q12H 30 days omeprazole 40 mg PO DAILY Oxygen Home Use As directed prednisolone acetate 1% (Pred Forte) 1 drp ophthalmic (eye) BEDTIME prednisone 20 mg PO QAM warfarin (Jantoven) 4 mg See Protocol PO BEDTIME Nursing Note INR 3.2 SLIGHTLY out of therapeutic range 2.0-3.0 Medications and supplements reviewed Patient status: S/P Hemorrhoidal banding procedure 01/24/25 *s/p day one 01/25/25 he has had rectal bleeding with each bowel movement-BRB- stops shortly after bowel movement,denies any pain or discomfort, he is concerned and will be calling the surgeon today Medications or supplements: no other changes Diet: good Denies any signs and symptoms of bleeding or clotting or unusual bruising Bleeding, bruising, clotting discussed Nutritional guidance given: - enc greens today soft foods like avocado today, avoid corn or scratchy foods until bleeding stops or intervention done by surgeon Dose: decrease today's dose to 2mg then resume 2mg x 2 days/ 4mg x 5 days F/U INR Date: 2 weeks or sooner prn ?? Patient verbalizing understanding of instructions given. 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
== END 2025-01-30 08:26 | disposition home or self-care (01) ==
LOC: HO.ACS 08:01
PROVIDERS: PCP Internal Medicine; Visit Provider Internal Medicine Medical Oncology
DX: Z79.01 Long term (current) use of anticoagulants (principal)

== ENCOUNTER → 2025-01-30 08:01 | Outpatient (BNVA) | payer OTHER, SELFPAY | PROVIDERS: PCP Internal Medicine; Visit Provider Internal Medicine Medical Oncology | DX: I82.402 Acute embolism and thrombosis of unspecified deep veins of left lower extremity (principal); Z79.01 Long term (current) use of anticoagulants; Z51.81 Encounter for therapeutic drug level monitoring | CPT/HCPCS: 85610; 99211 ==

== ENCOUNTER 2025-01-31 09:26 | Outpatient (AMB) | payer OTHER, SELFPAY ==
--- OUTSIDE RECORDS SUMMARY | 2024-11-27 07:40 | XMS_ITS ---
Author Organization [facility] Address [address] [place] [address] Care Team Providers Care Textile Worker Name Role Phone Jaz Myers MD Primary Care Provider Mason Castro [phone] REASON FOR VISIT screening colonoscopy Encounters Encounter Location Date Provider Diagnosis [facility] Outpatient [address] [place] [phone] 11/27/2024 Mason Rock Plan Of Treatment No Information Progress Notes * NELLY OWENS EDOB:[birth year] (59 yo M)Acc No.[id number]:11/27/2024 COLON WITH MAC Patient: NELLY BRANHAM Provider: Vinicio Rock MD :1965 A ge:59 Y S ex:Male Date:11/27/2024 Address:[address] [place], [place] [phone] Pcp:Jaz Myers MD Subjective: * Chief Complaints: * 1 . Screening colonoscopy. * Medical History: Objective: * Vitals: Assessment: Plan: * Treatment: * * The named appointment provid er may or may not be the originator of this progress note, and it is not deemed complete until electronically signed by the appointment provider. Sign off status: Pending * Provider: Vinicio Rock MD Date: 11/27/2024 Generated for Castilloi ng/Fadaniellag/eTransmitting on: 01/31/2025 11:17 AM EDT
--- OUTSIDE RECORDS SUMMARY | 2024-12-01 15:12 | XMS_ITS ---
Author Organization [facility] Address [address] [place] [address] Care Team Providers Care Window/Distribution Clerk Name Role Phone Jaz Myers MD Primary Care Provider Mason Castro [phone] REASON FOR VISIT ? need to treat colitis on 11/27 colon Encounters Encounter Location Date Provider Diagnosis [facility] [address] [place] [address] 12/01/2024 [place] Plan Of Treatment No Information Progress Notes * NELLY OWENS EDOB:[birth year] (59 yo M)Acc No.[id number]:12/01/2024 Patient: NELLY BRANHAM :1965 A ge:59 Y S ex:Male Address:[address] [place] [address], [address] Subjective: * Chief Complaints: * ? need to treat colitis on 11/27 colon * Medical History: * Surgical History: * Hospitalization/Major Diagno stic Procedure: * Medications: Objective: * Vitals: * Physical Examination: Assessment: Plan: * Treatment: * Procedure Codes: * * Date:
--- NOTE | 2025-01-31 09:41 | A.OFFVIS_ITS ---
Vital Signs 01/31/25 09:45 Height 5 ft 4 in Weight 135 lb 8 oz BMI 23.3 Intake Visit Reasons: rectal bleeding, Hx hemorrhoidal banding Intake Note: This patient presents for an assessment for rectal bleeding status post hemorrhoidal banding. (01/24/2025) Pt c/o; reports rectal bleeding, reports when he wipes after a bm he can see the rubber band used for the hemorrhoidal banding. CHARLY:01/24/2025 Plisse Machine Operator Required: No Accompanied by: Self / Same As Patient Allergies No Known Allergies (No Known Allergies*) Allergy (Verified 01/31/25 09:46) Medication List - Last Reconciled 01/31/25 by Saurabh Serrato MD albuterol sulfate 90 mcg/actuation 2 inhalations inhalation Q6H PRN 30 days ascorbic acid (vitamin C) 500 mg PO .QD blood pressure monitor (Blood Pressure Kit) As directed calcium citrate 1,000 mg PO DAILY cetirizine 10 mg PO DAILY PRN chlorpheniramine maleate (Allergy Relief (chlorpheniramine)) 4 mg PO Q6H PRN cholecalciferol (vitamin D3) (Vitamin D3) 100 mcg (2 x 50 mcg (2,000 unit)) PO DAILY 30 days clotrimazole 1% 1 appl topical BID 4 weeks ferrous sulfate (Feosol) 325 mg PO BID 30 days infliximab (Remicade) 336 mg IV Q4W 12 months nintedanib (Ofev) 150 mg PO Q12H 30 days omeprazole 40 mg PO DAILY Oxygen Home Use As directed prednisolone acetate 1% (Pred Forte) 1 drp ophthalmic (eye) BEDTIME prednisone 20 mg PO QAM warfarin (Jantoven) 4 mg See Protocol PO BEDTIME HPI HPI rectal bleeding, Hx hemorrhoidal banding: Details: He had undergone rubber-band ligation for bleeding hemorrhoids last week. He says that he has been passing blood with bowel movements practically every day. Unfortunately, he is also on Coumadin for history of DVTs. He otherwise feels well overall denies significant pain. [facility] [place] Medical History Oxygen dependent Bleeding hemorrhoids Pneumonia due to COVID-19 virus Pulmonary fibrosis ILD (interstitial lung disease) Bronchomalacia Sarcoidosis Pulmonary nodules Obesity (BMI 30.0-34.9) LFT elevation Hyperkalemia Glaucoma BPH (benign prostatic hyperplasia) Vitamin D deficiency Hypercholesterolemia Protein S deficiency DVT (deep venous thrombosis) Thrombocytopenia Surgical History History of bronchoscopy History of right inguinal hernia repair Hx of lymph node biopsy Hx of colonoscopy History of umbilical hernia repair History of appendectomy History of sinus surgery Family History Mother No problems noted. Father Medical history unknown Daughter In good health Sister In good health Brother Lung cancer Social History Household Members: Significant Other Housing: House Are you a primary healthcare consultant to a significant other at home: No Do you presently have visiting nurse or other home services: Yes (medical supply for O2) Alcohol intake: current Alcohol intake frequency: does not drink Comment: 3x a year 2 drinks Patient Tobacco Use Status: Never used Tobacco Tobacco use type: Cigarette e-Cigarette/Vaping Use: Never Used Second Hand Smoke Exposure: No service: No Current occupational status: employed Cognitive needs: No Hearing needs: No Vision needs: Yes Review of Systems Const Denies chills and Denies fever(s) Card Reports dyspnea, Reports dyspnea on exertion and Reports orthopnea Resp Reports dyspnea and Reports dyspnea on exertion GI Denies abdominal pain and Reports hematochezia Physical Exam Vital Signs: BMI result Body Mass Index 23.3 Const Other: On home O2, does have baseline shortness of breath General: comfortable and no acute distress Resp Other: On O2, baseline short of breath GI Other: Rectal exam -no bleeding currently, no areas of induration or redness, no tenderness Assessment & Plan Assessment & Plan (1) Bleeding hemorrhoids: Code(s): K64.9 - Unspecified hemorrhoids Category: Medical Plan: I had done band ligation of internal hemorrhoids last week. He had been noticing passage of bright blood per rectum so we was instructed to see me again This is expected because of the him being on anticoagulation. I explained to him that if there is a chance that he can be off anticoagulation, this may elevate the problem significantly. In the meantime, we will prescribe him Metamucil to less than trauma to his internal hemorrhoids with bowel movements He has a follow up with me again in 3 weeks and we may need to do more rubber banding. He is comfortable with the plan. Coding Level of Care Code Est Pt Level 3 ([address]709) Diagnoses Bleeding hemorrhoids K64.9
[2025-01-31 09:45] VITALS: BMI 23.3
--- OUTSIDE RECORDS SUMMARY | 2025-01-31 11:17 | XMS_ITS ---
Author Organization [facility] Address [address] [facility] [place] [address] Phone Care Team Providers Care Fashion Coordinator Name Role Phone Jaz Myers MD Primary Care Provider [phone] Radha Fox MD, S Unavailable Devyn Jay MD Unavailable [phone] Transplant Episode Lung Candidate [facility] ([place], [place]) - [facility] Evaluation began on 06/19/2024 Marked as Deferred on 10/18/2024 Reason: Unable to Contact Patient Lung CoordinatorAna Da Silva RN Email: [email or web address] Scores Score Value Updated Exceptions/Reas ons CPRA 0 08/03/2024 LAS Not available Care Team Name Role Phone Fax Email Ana Da Silva RN Lung Coordinator [phone] [email or web address] Giovana Self Corporate Tax Manager [phone] Radha Fox MD, S Referring Physician [phone] Evette Reilly Tactical Intelligence Officer N/A N/A N/A Events Pre-Transplant Referred: 06/14/2024 Evaluation began: 06/19/2024
--- OUTSIDE RECORDS SUMMARY | 2025-01-31 11:17 | XMS_ITS | Encounter Summary ---
Author Organization [facility] Address [address] [place] [address] Phone Care Team Providers Care Library Services Coordinator Name Role Phone Jaz Myers MD Primary Care Provider [phone] Radha Fox MD, S Unavailable Devyn Jay MD Unavailable [phone] Encounter Details Date Type Department Care Team (Late st Contact Info) Description 11/17/2023 Procedure Pass [facility] Endoscopy Admitting Dept Virtual Department [address] [place] [address] Social History Tobacco Use Types Packs/Day Years [...] documented as of this encounter Care Teams Library Services Coordinator Relationship Specialty Start Date End Date Po, Jaz Whalen MD [address] [place] [address] PCP - General Internal Medicine 11/16/23 Radha Fox MD, S [address] [place] [address] 3 [place] [address] [email or web address] Referring Physician Pulmonary Disease 06/14/24 Devyn Jay MD [address] [place] [address] 200 [place] [address] Pulmonary Disease 09/08/24 documented as of this encounter Additional Source Comments The information contained in this document represents components of the legal health record. It is not the complete legal health record.[facility]
--- OUTSIDE RECORDS SUMMARY | 2025-01-31 11:18 | XMS_ITS | Encounter Summary ---
Author Organization [facility] Address [address] [facility] [address] [place] [address] Phone Care Team Providers Care Admission Specialist Name Role Phone Jaz Myers MD Primary Care Provider [phone] Radha Fox MD, S Unavailable Devyn Jay MD Unavailable [phone] Encounter Details Date Type Department Care Team (Late st Contact Info) Description 05/19/2024 Procedure Pass [facility] Echocardiography [address] [place] [address] Social History Tobacco Use Types Packs/Day Years [...] documented as of this encounter Care Teams Admission Specialist Relationship Specialty Start Date End Date Jaz Myers MD [address] [place] [address] PCP - General Internal Medicine 11/16/23 Radha Fox MD, S [address] [facility] 3 [place] [address] [email or web address] Referring Physician Pulmonary Disease 06/14/24 Devyn Jay MD [address] [facility] 200 [place] [address] Pulmonary Disease 09/08/24 documented as of this encounter Additional Source Comments The information contained in this document represents components of the legal health record. It is not the complete legal health record.[facility]
--- OUTSIDE RECORDS SUMMARY | 2025-01-31 11:18 | XMS_ITS | Patient Health Record ---
Author Organization [facility] Address [address] [place] [address] Care Team Providers Care Animal Husbandman Name Role Phone Jaz Myers MD Primary Care Provider Mason Castro [phone] Allergies No Known Allergies Results Component Value Reference Range Notes Prothrombin Time INR Reviewed date:11/28/2024 10:12:07 AM Interpretation: Performing Lab:[facility] [place], [address] [place] [phone] Notes/Report: Prothrombin Time 11.8 10.9-12.4 SEC INTERNATIONAL [...] (Not yet reviewed by provider) Interpretation: Performing Lab:[facility] [place], [address] [place] [id number] Notes/Report: Reason For Referral No Information Medications [...] Status Risk Notes Problem Colon cancer screening (662066242) Colon cancer screening (Z12.11) Active confirmed Problem 11310173 Rectal bleeding (K62.5) Active confirmed Problem 588724606 History of adenomatous polyp of colon (Z86.010) Active confirmed Problem Preprocedural examination (069817077350105) Preprocedural examination (Z01.818) Active confirmed Problem Diverticulosis of colon (031920615) Diverticulosis of colon (K57.30) Active confirmed Vital Signs Temperature 97.8 degrees Fahrenheit 09/06/2024 Blood pressure diastolic 01 mm Hg 09/06/2024 Height 64 in 09/06/2024 Blood pressure systolic 001 mm Hg 09/06/2024 Weight 136 lbs 09/06/2024 BMI 23.34 kg/m2 09/06/2024 Procedures Procedure Date Ordered Date Performed Result Body Sit e COLONOSCOPY 09/06/2024 N/A Encounters Encounter Location Date Provider Diagnosis [facility] Outpatient [address] [place] [id number] 11/27/2024 Mason Rock [facility] [address] [place] [phone] 09/06/2024 Mason Rock History of adenomato us polyp of colon Z86.010 ; Preprocedural examination Z01.818 and Colon cancer screening Z12.11 [facility] [address] [place] [address] 12/01/2024 Mason Rock [facility] [address] [place] [address] 09/06/2024 Mason Rock [facility] [address] [place] [address] 11/20/2024 Mason Rock Assessments Encounter Date Diagnosis [...] cleared for a potential lung transplant in [place]. As such I will plan to arrange [...] cleared for a potential lung transplant in [place]. As such I will plan to arrange [...] cleared for a potential lung transplant in [place]. As such I will plan to arrange [...] Insured Coverage Start Date Coverage End Date [facility] [address] [address] [place], [place] [id number] MAX OWENS Self - patient is the insured MEDICAID [facility] [address] [place] [address] [id number] MAX OWENS Self - patient is the insured Medical (General) History Medical History History ICD Code Denies NH,DM,CVA,Lung disease,renal dise ase Pulmonary Sarcoidosis--it has also [...] being followed by Dr. Da Silva at [facility] Pulmonary Department and the lung transplant center at [facility] in [place].He is currently on 2 L of nasal cannula 24 hours a day as of the August 2024 office visit. Surgical History Surgery Date(Month/Year) Hernia repair--umbilical 2017
--- OUTSIDE RECORDS SUMMARY | 2025-01-31 11:18 | XMS_ITS | Clinical Summary ---
Author Organization [facility] Address [address] [place] [address] Phone Care Team Providers Care Emergency Medicine Nurse Practitioner Name Role Phone Jaz Myers MD Primary Care Provider [phone] Radha Fox MD, S Unavailable Devyn Jay MD Unavailable [phone] Allergies No known active allergies Medications warfarin [...] bronch washings have tested positive for covid. Operations Scheduler saw ? Lesion on right vocal cord. [...] management of sarcoidosis (followed by pulmonology in [place]). Patient had been using supplemental oxygen increasingly, [...] dose until advised further by patient's primary data communications software consultant -Goal SpO2 with supplemental oxygen > 90% and < 96% -Outpatient follow-up with data communications software consultant in [place] Resolved Problems Problem Noted Date Diagnosed Date [...] ecorded Are you denied basic needs s [facility] as food, clothing, or medical care? No [...] (08/03/2024 1:38 PM EDT) HCV Nonreactive Nonreactive [facility] 08/03/2024 1:38 PM EDT 08/03/2024 2:00 PM EDT us Melinda Epps MD LAB BLOOD ORDERABLES Final Resul t [facility] [address] [place] [phone] * (ABNORMAL) Lipid panel (08/03/2024 1:38 PM EDT) CHOLESTEROL 253(H) <200 mg/dL [facility] TRIGLYCERIDES 255(H) 35 - 150 mg/dL [facility] HDL 100(H) 40 - 80 mg/dL [facility] CALCULATED LDL 102 50 - 129 mg/dL [facility] VLDL 51(H) <31 mg/dL [facility] CARDIAC RISK RATIO 2.5 0.0 - 4.0 [facility] 08/03/2024 1:38 PM EDT 08/03/2024 2:00 PM EDT us Melinda Epps MD LAB BLOOD ORDERABLES Final Resul t [facility] [address] [place] [phone] from Last 3 Months or Most Recently Relevant to Health Maintenance [place] [address] [place] [address] [place] [address] [place] [address] [place] [address] [place] [address] A[employer] Advance Directives For more information, please contact: [phone] (9AM - 5PM Karla/[facility], Wednesday-Wednesday) Documents on File Type Date Recorded Patient Pit Crew Support Worker Expl anation Healthcare Proxy 11/22/2023 5:32 PM [...] Status Communicated To: Inpatient Attending Care Teams Emergency Medicine Nurse Practitioner Relationship Specialty Start Date End Date Po, Jaz Whalen MD [address] [place] [address] PCP - General Internal Medicine 11/16/23 Radha Fox MD, [facility] [address] [place] [id number] [email or web address] Referring Physician Pulmonary Disease 06/14/24 Devyn Jay MD [address] [place] [address] [address] [place] [address] Pulmonary Disease 09/08/24 Additional Source Comments The information contained in this document represents components of the legal health record. It is not the complete legal health record.[facility]
--- OUTSIDE RECORDS SUMMARY | 2025-01-31 11:18 | XMS_ITS | Encounter Summary ---
Author Organization [facility] Address [address] [place] [address] Phone Care Team Providers Care Professional Builder Name Role Phone Jaz Myers MD Primary Care Provider [phone] Radha Fox MD, S Unavailable Devyn Jay MD Unavailable [phone] Reason for Referral * MRI/CAT Scan - Closed Specialty Diagnoses / Procedures Referred By Contac t Referred To Contact Radiology Diagnoses Interstitial lung disease Procedures NC PET/CT Cardiac Sarcoid PET/SPECT NC SPECT MYOCARDIAL VIABILITY CHG MYOCRD IMG PET METAB EVAL SINGLE STUDY CNCRNT CT CHG MYOCARDIAL SPECT SINGLE STUDY AT REST OR STRESS Radha Fox MD, S [address] [address] Phone: tel: fax: [email or web address] Referral ID Status Reason Start Date Expiration Date Visits Re quested Visits Authorized [id number] Closed 06/21/2024 08/29/2024 1 1 Encounter Details Date Type Department Care Team (Latest Contact Info) Description 06/16/[address] [facility] [address] [place] [address] Radha Fox MD, S [address] [place] [address] [email or web address] Interstitial lung disease (Primary Dx) Social History [...] 06/19/2024 9:22 AM Beth Anderson RN * [place] Suicide Severity Rating Scale (Screener/Recent Self-Report) Question Answer Date of Assessment Author 1. Wish to be (Past 1 Month) No 06/19/2024 9:22 AM Beth Fernando RN 2. Non-Specific Active Suicidal Thoughts (Past 1 Month) No 06/19/2024 9:22 AM Beth Fernando RN 6. Suicidal Behavior (Lifetime) No 06/19/2024 9:22 AM GUILLERMO BurlesonBeth nelson Nav orozco RN documented as of [...] documented as of this encounter Care Teams Professional Builder Relationship Specialty Start Date End Date Jaz Myers MD [address] [place] [address] PCP - General Internal Medicine 11/16/23 Radha Fox MD, S [address] [place] [address] [address] [place] [address] Referring Physician Pulmonary Disease 06/14/24 Devyn Jay MD [address] [place] [address] [address] [place] [address] Pulmonary Disease 09/08/24 documented as of this encounter Additional Source Comments The information contained in this document represents components of the legal health record. It is not the complete legal health record.[facility]
--- OUTSIDE RECORDS SUMMARY | 2025-01-31 11:18 | XMS_ITS | Encounter Summary ---
Author Organization [facility] Address [address] [place] [address] Phone Care Team Providers Care Director Audience Marketing Name Role Phone Jaz Myers MD Primary Care Provider [phone] Radha Fox MD, S Unavailable Devyn Jay MD Unavailable [phone] Encounter Details Date Type Department Care Team (Late st Contact Info) Description 11/16/2023 Procedure Pass [facility], Ct Scan - [address] [address] Social History Tobacco Use Types Packs/Day Years [...] 5:07 PM EDT Nany Warren RN * [place] Suicide Severity Rating Scale (Screener/Recent Self-Report) Question [...] documented as of this encounter Care Teams Director Audience Marketing Relationship Specialty Start Date End Date Jaz Myers MD [address] [place] [address] PCP - General Internal Medicine 11/16/23 Radha Fox MD, S [address] [place] [address] [email or web address] Referring Physician Pulmonary Disease 06/14/24 Devyn Jay MD [address] [place] [address] Pulmonary Disease 09/08/24 documented as of this encounter Additional Source Comments The information contained in this document represents components of the legal health record. It is not the complete legal health record.[facility]
--- OUTSIDE RECORDS SUMMARY | 2025-01-31 11:18 | XMS_ITS | Encounter Summary ---
Author Organization [facility] Address [address] [place] [address] Phone Care Team Providers Care Power Cutting Machine Operator Name Role Phone Jaz Myers MD Primary Care Provider [phone] Radha Fox MD, S Unavailable Devyn Jay MD Unavailable [phone] Encounter Details Date Type Department Care Team (Late st Contact Info) Description 05/19/2024 Procedure Pass [facility] [address] [place] [address] Social History Tobacco Use Types Packs/Day Years [...] documented as of this encounter Care Teams Power Cutting Machine Operator Relationship Specialty Start Date End Date Po, Jaz Whalen MD [address] [place] [address] PCP - General Internal Medicine 11/16/23 Radha Fox MD, S [address] [facility] [address] [place] [address] [email or web address] Referring Physician Pulmonary Disease 06/14/24 Devyn Jay MD [address] [facility] [address] [place] [address] Pulmonary Disease 09/08/24 documented as of this encounter Additional Source Comments The information contained in this document represents components of the legal health record. It is not the complete legal health record.[facility]
--- OUTSIDE RECORDS SUMMARY | 2025-01-31 11:18 | XMS_ITS | Encounter Summary ---
Author Organization [facility] Address [address] [place] [address] Phone Care Team Providers Care Golf Instructor Name Role Phone Jaz Myers MD Primary Care Provider [phone] Radha Fox MD, S Unavailable Devyn Jay MD Unavailable [phone] Encounter Details Date Type Department Care Team (Late st Contact Info) Description 05/24/2024 Transcribe Orders [facility] EKG [address] [place] [address] Jaz Myers MD [address] [place] [address] Social History Tobacco Use Types [...] documented as of this encounter Care Teams Golf Instructor Relationship Specialty Start Date End Date Po, Jaz Whalen MD [address] [place] [address] Drive [address] [place] [address] PCP - General Internal Medicine 11/16/23 Radha Fox MD, S [address] [place] [address] 3 [place] [address] Referring Physician Pulmonary Disease 06/14/24 Devyn Jay MD [address] [place] [address] [address] [place] [address] Pulmonary Disease 09/08/24 documented as of this encounter Additional Source Comments The information contained in this document represents components of the legal health record. It is not the complete legal health record.[facility]
== END 2025-01-31 10:11 | disposition home or self-care (01) ==
LOC: HO.HGS 09:27
PROVIDERS: PCP Internal Medicine; Visit Provider Surgery
DX: K64.9 Unspecified hemorrhoids (principal)
CPT/HCPCS: 99213

== ENCOUNTER → 2025-01-31 09:26 | Outpatient (BNVA) | payer OTHER, SELFPAY | PROVIDERS: PCP Internal Medicine; Visit Provider Surgery | DX: K64.9 Unspecified hemorrhoids (principal); Z98.0 Intestinal bypass and anastomosis status | CPT/HCPCS: 99212 ==

== ENCOUNTER 2025-02-13 07:59 | Outpatient (AMB) | payer OTHER, SELFPAY ==
[2025-02-13 08:10] LABS: Prothrombin Time Whole Bld POC 25.2 sec (11.1-13.5); ~PT, ~INR - Anti Coag Clinic 2.1 (0.9-1.1)
--- NOTE | 2025-02-13 08:12 | MHC.OFFVISCO ---
Intake Intake Visit Reasons: Anticoagulation Allergies No Known Allergies (No Known Allergies*) Allergy (Verified 02/13/25 08:10) Medication List - Last Reconciled 02/13/25 by Marcia Dave RN albuterol sulfate 90 mcg/actuation 2 inhalations inhalation Q6H PRN 30 days ascorbic acid (vitamin C) 500 mg PO .QD blood pressure monitor (Blood Pressure Kit) As directed calcium citrate 1,000 mg PO DAILY cetirizine 10 mg PO DAILY PRN chlorpheniramine maleate (Allergy Relief (chlorpheniramine)) 4 mg PO Q6H PRN cholecalciferol (vitamin D3) (Vitamin D3) 100 mcg (2 x 50 mcg (2,000 unit)) PO DAILY 30 days clotrimazole 1% 1 appl topical BID 4 weeks ferrous sulfate (Feosol) 325 mg PO BID 30 days infliximab (Remicade) 336 mg IV Q4W 12 months nintedanib (Ofev) 150 mg PO Q12H 30 days omeprazole 40 mg PO DAILY Oxygen Home Use As directed prednisolone acetate 1% (Pred Forte) 1 drp ophthalmic (eye) BEDTIME prednisone 20 mg PO QAM warfarin (Jantoven) 4 mg See Protocol PO BEDTIME Nursing Note INR: 2.1 in therapeutic range Medications and supplements reviewed *Pt states he started with a rash Wednesday on the inside of his arms then over the past few days rash is spreading from arms to trunk and going down to groin and thighs, very multiple small red itchy blotchy dots, no increase in sob or fever, or GI issues, no other symptoms - he may try Benedryl this evening. He has called his PCP * No hemrrhoidal bleeding past 4 days- Dr Serrato is aware of hemorrhoidal condition - pt has f/u with Dr Serrato. Denies any signs and symptoms of bleeding or bruising or clotting. Bleeding, bruising, clotting discussed Nutritional guidance given - keep up weekly greens to keep INR in lower range to minimize hemorrhoidal bleeding Dose: 2mg sun thur/ 4mg x 5 days F/U INR: 2 weeks Patient verbalizes understanding of instructions given Anti-Coag Initial Assessment Social Hx Patient Tobacco Use Status: Never used Tobacco Tobacco use type: Cigarette alcohol intake: current Alcohol intake frequency: does not drink Coding Level of Care Code Est Patient Level 1 Diagnoses Current use of anticoagulant therapy Z79.01 Assessment & Plan Assessment & Plan (1) Current use of anticoagulant therapy: Code(s): Z79.01 - intermediate manager (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
== END 2025-02-13 08:31 | disposition home or self-care (01) ==
LOC: HO.ACS 07:59
PROVIDERS: PCP Internal Medicine; Visit Provider Internal Medicine Medical Oncology
DX: Z79.01 Long term (current) use of anticoagulants (principal)

== ENCOUNTER → 2025-02-13 07:59 | Outpatient (BNVA) | payer OTHER, SELFPAY | PROVIDERS: PCP Internal Medicine; Visit Provider Internal Medicine Medical Oncology | DX: R23.3 Spontaneous ecchymoses (principal); Z23 Encounter for immunization; D50.8 Other iron deficiency anemias; D68.59 Other primary thrombophilia; D86.9 Sarcoidosis, unspecified; J84.9 Interstitial pulmonary disease, unspecified; Z13.31 Encounter for screening for depression; I82.402 Acute embolism and thrombosis of unspecified deep veins of left lower extremity; Z79.01 Long term (current) use of anticoagulants; Z51.81 Encounter for therapeutic drug level monitoring | CPT/HCPCS: 85610; 90471; 90656; 99211; 99212 ==

== ENCOUNTER 2025-02-13 10:26 | Outpatient (AMB) | payer OTHER, SELFPAY ==
--- OUTSIDE RECORDS SUMMARY | 2024-11-27 07:40 | XMS_ITS ---
Author Organization [facility] Address [address] [place] [address] Care Team Providers Care Healthcare Administrative Assistant Name Role Phone Jaz Myers MD Primary Care Provider Mason Catsro [phone] REASON FOR VISIT screening colonoscopy Encounters Encounter Location Date Provider Diagnosis [facility] [place] [address] [place] [phone] 11/27/2024 Mason Rock Plan Of Treatment No Information Progress Notes * NELLY OWENS EDOB:[birth year] (59 yo M)Acc No.[id number]:11/27/2024 COLON WITH MAC Patient: NELLY BRANHAM Provider: Vinicio Rock MD :1965 A ge:59 Y S ex:Male Date:11/27/2024 Address:[address] [place], [place] [phone] Pcp:Jaz Myers MD Subjective: * Chief Complaints: [...] 11/27/2024 Generated for Castilloi ng/Fadaniellag/eTransmitting on: 1 12:39 PM EDT
--- OUTSIDE RECORDS SUMMARY | 2024-12-01 15:12 | XMS_ITS ---
Author Organization [facility] Address [address] [place] [address] Care Team Providers Care Hotel Clerk Name Role Phone Jaz Myers MD Primary Care Provider Mason Castro [phone] REASON FOR VISIT ? need to treat colitis on 11/27 colon Encounters Encounter Location Date Provider Diagnosis [facility] [address] [place] [address] 12/01/2024 [place] Plan Of Treatment No Information Progress Notes * NELLY OWENS EDOB:[birth year] (59 yo M)Acc No.[id number]:12/01/2024 Patient: NELLY BRANHAM :1965 A ge:59 Y S ex:Male Address:[address] [place] [address], [address] Subjective: * Chief Complaints: * ? need to treat colitis on 11/27 colon * Medical History: * Surgical History: * Hospitalization/Major Diagno stic Procedure: * Medications: Objective: * Vitals: * Physical Examination: Assessment: Plan: * Treatment: * Procedure Codes: * * Date:
[2025-02-13 11:01] VITALS: BP 134/80; PULSE 91; TEMP 36.3; O2SAT 94; BMI 23.3
--- NOTE | 2025-02-13 11:01 | MHC.PC.OV ---
Vital Signs 02/13/25 11:01 Height 5 ft 4 in Weight 135 lb 8 oz BMI 23.3 BP 134/80 Blood Pressure Location Lt brachial Position Sitting Pulse 91 Pulse Source Pulse Oximeter Temp 97.3 F Temp Source Temporal Artery Scan Pulse Oximetry (%) 94 Oxygen Delivery Method Nasal Cannula Oxygen Flow Rate 2 Intake Visit Reasons: Red dots, rash Allergies No Known Allergies (No Known Allergies*) Allergy (Verified 02/13/25 11:04) Tobacco use date assessed: 02/13/25 Dental Screening Dental Screen Date: 02/13/25 Did you have a dental visit in the last 12 months?: Yes Did you have a dental problem in the last 6 months where you did not have access to dental care?: No Was dental information given to patient?: Patient has dentist HPI Red dots, rash HPI Details 59-year-old male with a history of sarcoidosis with interstitial lung disease having history of hypercholesterolemia protein S deficiency on blood thinners impaired glucose tolerance hepatic steatosis coming in for an acute problem. Wednesday noted petechial rash on the left arm which has spread diffusely over trunk back neck arms and legs. Prompted for consultation patient states recently started on vitamin-D but otherwise no other new medication patient is not complaining of increase showing shortness of breath no change in color of the urine no dysuria no frequency no problems with bowel no cough . [facility] Medical History Oxygen dependent Bleeding hemorrhoids Pneumonia due to COVID-19 virus Pulmonary fibrosis ILD (interstitial lung disease) Bronchomalacia Sarcoidosis Pulmonary nodules Obesity (BMI 30.0-34.9) LFT elevation Hyperkalemia Glaucoma BPH (benign prostatic hyperplasia) Vitamin D deficiency Hypercholesterolemia Protein S deficiency DVT (deep venous thrombosis) Thrombocytopenia Surgical History History of bronchoscopy History of right inguinal hernia repair Hx of lymph node biopsy Hx of colonoscopy History of umbilical hernia repair History of appendectomy History of sinus surgery Family History Mother No problems noted. Father Medical history unknown Daughter In good health Sister In good health Brother Lung cancer Social History Household Members: Significant Other Housing: House Are you a primary cardiac care unit nurse to a significant other at home: No Do you presently have visiting nurse or other home services: Yes (medical supply for O2) Alcohol intake: current Alcohol intake frequency: does not drink Comment: 3x a year 2 drinks Patient Tobacco Use Status: Never used Tobacco Tobacco use type: Cigarette e-Cigarette/Vaping Use: Never Used Second Hand Smoke Exposure: No service: No Current occupational status: employed Cognitive needs: No Hearing needs: No Vision needs: Yes Questionnaire PHQ-9 Over the last 2 weeks, how often have you been bothered by any of the following problems? 1. Little interest or pleasure in doing things: not at all 2. Feeling down, depressed, or hopeless: not at all 3. Trouble falling or staying asleep, or sleeping too much: not at all 4. Feeling tired or having little energy: not at all 5. Poor appetite or overeating: not at all 6. Feeling bad about yourself - or that you are a failure or have let yourself or your family down: not at all 7. Trouble concentrating on things, such as reading the newspaper or watching television: not at all 8. Moving or speaking so slowly that other people could have noticed. Or the opposite - being so fidgety or restless that you have been moving around a lot more than usual: not at all 9. Thoughts that you would be better off or of hurting yourself in some way: not at all Total score: 0 Depression Screening Interpretation: Negative Depression Screening Done: Yes Source: Developed by Drs. Mason Burton, Irma Morales, Waldemar Mchugh and colleagues, with an educational dc from [employer]. Thrive Questionnaire Date Thrive assessed: 09/06/24 I am a: Patient What is your living situation today?: I have a steady place to live Within the past 12 months, did the food you bought not last and you didn't have the money to get more?: I choose not to answer this question Within the past 12 months, did you worry whether your food would run out before you got money to buy more?: I choose not to answer this question Do you have trouble paying for medicines?: I choose not to answer this question Do you have trouble getting transportation to medical appointments?: I choose not to answer this question Do you have trouble paying your heating and electricity bill?: I choose not to answer this question Do you have trouble taking care of your child, family member or friend?: I choose not to answer this question Do you have trouble with day-to-day activities such as bathing, preparing meals, shopping, managing finances, etc.?: I choose not to answer this question Are you currently unemployed and looking for a job?: I choose not to answer this question Are you interested in more education?: I choose not to answer this question Please select the resources that you would like help with: None Currently or been in a relationship where the following occur: I choose not to answer THRIVE Score: 0 AUDIT C Alcohol Use Questionnaire (AUDIT-C) 1. How often do you have a drink containing alcohol?: Never 3. How often do you have six or more drinks on one occasion?: Never Total Score: 0 SANDRA-7 AMB Questionnaire SANDRA-7 Date SANDRA - 7 assessed: 09/06/24 Feeling nervous, anxious, or on edge: 0 = Not at all Not being able to stop or control worryin = Not at all Worrying too much about different things: 0 = Not at all Trouble relaxin = Not at all Being so restless that it is hard to sit still: 0 = Not at all Becoming easily annoyed or irritable: 0 = Not at all Feeling afraid as if something awful might happen: 0 = Not at all Total SANDRA-7 score (0-4 normal; 5-9 mild; 10-14 moderate; 15-21 severe): 0 Source: Developed by Drs. Mason Burton, Irma Morales, Waldemar Mchugh and colleagues, with an educational dc from [employer]. Physical exam (Primary Care) Vital Signs: Last Vital Signs Temp 97.3 F 02/13/25 11:01 Pulse 91 02/13/25 11:01 BP 134/80 02/13/25 11:01 Pulse Ox 94 02/13/25 11:01 Oxygen Delivery Method Nasal Cannula 02/13/25 11:01 Oxygen Flow Rate 2 02/13/25 11:01 BMI result Body Mass Index 23.3 Tobacco/Smoking Status: Tobacco use Status Tobacco use date assessed 02/13/25 02/13/25 11:05 Patient Tobacco Use Status Never used Tobacco 02/13/25 11:05 Tobacco use type Cigarette 02/13/25 11:05 e-Cigarette/Vaping Use Never Used 02/13/25 11:05 PHQ-9: PHQ-9 Score PHQ-9: Total score 0 02/13/25 12:00 Depression Screening Interpretation: Negative Thrive Assessment: Date of Thrive Assessment Date Thrive assessed 09/06/24 02/13/25 11:05 Currently or been in a relationship where the following occur: I choose not to answer Const Other: petechial rash diffuse Skin Other: Generalized petechial rash over the arms legs trunk back Office Procedures Flu Questionnaire Does the patient have a severe egg allergy?: No Does the patient have severe life threatening allergies?: No Does the patient have a fever or illness today?: No Has the patient ever had Guillain-Joliet Syndrome?: No Has the patient ever had any past reaction to a flu shot?: No Immunizations Fluarix [id number] (PF) 45 mcg (15 mcg x 3)/0.5 mL IM syringe Performing Provider: Jaz Myers MD Performing Location[facility] [place] [facility] Administered by: GABINO Downs on 02/13/25 12:00 Dose Route Admin Location Dispensed Lot Number Expiration Date [facility] Landfill Gas Technician 0.5 mL IM Right Deltoid 0.5 mL [id number] 11/06/25 [id number] Monitoring Division VIS Given Date VIS Provided VIS Publication Date 02/13/25 Single Vaccine 24 Eligibility Eligibility Date Funding Source Not [facility] Eligible 02/13/25 Private Coding Level of Care Code Est Pt Level 4 (50706) Complex EM visit Add On G2211 Diagnoses Petechial rash R23.3 Iron deficiency anemia secondary to inadequate dietary iron intake D50.8 Iron deficiency anemia type: inadequate dietary iron intake Protein S deficiency D68.59 ILD (interstitial lung disease) J84.9 Assessment & Plan Assessment & Plan (1) Petechial rash: Code(s): R23.3 - Spontaneous ecchymoses Category: Medical Plan: Blood work requested for further evaluation (2) Iron deficiency anemia: Code(s): D50.9 - Iron deficiency anemia, unspecified Category: Medical Qualifiers: Iron deficiency anemia type: inadequate dietary iron intake Qualified Code(s): D50.8 - Other iron deficiency anemias Plan: Continue with iron and vitamin-C (3) Protein S deficiency: Code(s): D68.59 - Other primary thrombophilia Category: Medical Plan: Continue with anticoagulation (4) ILD (interstitial lung disease): Code(s): J84.9 - Interstitial pulmonary disease, unspecified Category: Medical Plan: Continue to follow-up with Pulmonary on oxygen Orders: Orders Complete Blood Count Auto Diff Today R23.3 - Spontaneous ecchymoses Comprehensive Met. Panel Today R23.3 - Spontaneous ecchymoses Free T4 (Free Thyroxine) Today R23.3 - Spontaneous ecchymoses Erythrocyte Sedimentation Rate Today R23.3 - Spontaneous ecchymoses JESÚS Reflex Titer and Pattern Today R23.3 - Spontaneous ecchymoses, R79.89 - Other specified abnormal findings of blood chemistry Complement Total CH50 Today R23.3 - Spontaneous ecchymoses Influenza [id number] Immunization Today Z23 - Encounter for immunization Thyroid Stimulating Hormone Today R23.3 - Spontaneous ecchymoses Prothrombin Time INR Today R23.3 - Spontaneous ecchymoses Partial Thromboplastin Time Today R23.3 - Spontaneous ecchymoses C Reactive Protein Today R23.3 - Spontaneous ecchymoses Immunoglobulins,IgG IgA IgM Today R23.3 - Spontaneous ecchymoses ANCA Vasculitides Today R23.3 - Spontaneous ecchymoses Medications: Refilled ascorbic acid (vitamin C) 500 mg PO .QD 90 caps 1RF R23.3 - Spontaneous ecchymoses ferrous sulfate (Feosol) 325 mg PO BID 60 tabs 0RF 30 days R23.3 - Spontaneous ecchymoses
--- OUTSIDE RECORDS SUMMARY | 2025-02-13 12:39 | XMS_ITS | Patient Health Record ---
Author Organization [facility] Address [address] [place] [address] Care Team Providers Care Citrix Systems Administrator Name Role Phone Jaz Myers MD Primary Care Provider Mason Castro [phone] Allergies No Known Allergies Results Component Value Reference Range Notes Prothrombin Time INR Reviewed date:11/28/2024 10:12:07 AM Interpretation: Performing Lab:[facility], [address] [place] [phone] Notes/Report: Prothrombin Time 11.8 10.9-12.4 [employer] [...] (Not yet reviewed by provider) Interpretation: Performing Lab:[facility], [address] [place] [phone] Notes/Report: Reason For Referral No Information Medications [...] Status Risk Notes Problem Colon cancer screening (113486446) Colon cancer screening (Z12.11) Active confirmed Problem 66842969 Rectal bleeding (K62.5) Active confirmed Problem 510648191 History of adenomatous polyp of colon (Z86.010) Active confirmed Problem Preprocedural examination (484290480384864) Preprocedural examination (Z01.818) Active confirmed Problem Diverticulosis of colon (852962876) Diverticulosis of colon (K57.30) Active confirmed Vital Signs Temperature 97.8 degrees Fahrenheit 09/06/2024 Blood pressure diastolic 01 mm Hg 09/06/2024 Height 64 in 09/06/2024 Blood pressure systolic 001 mm Hg 09/06/2024 Weight 136 lbs 09/06/2024 BMI 23.34 kg/m2 09/06/2024 Procedures Procedure Date Ordered Date Performed Result Body Sit e COLONOSCOPY 09/06/2024 N/A Encounters Encounter Location Date Provider Diagnosis [facility] Outpatient [address] [place] [id number] 11/27/2024 Mason Rock [facility] [address] [place] [address] 09/06/2024 Mason Rock History of adenomato us polyp of colon Z86.010 ; Preprocedural examination Z01.818 and Colon cancer screening Z12.11 [facility] [address] [place] [address] 12/01/[address] [facility] [address] [place] [address] 09/06/[address] [facility] [address] [place] [address] 11/20/2024 Mason Rock Assessments Encounter Date Diagnosis [...] cleared for a potential lung transplant in [place]. As such I will plan to arrange [...] cleared for a potential lung transplant in [place]. As such I will plan to arrange [...] cleared for a potential lung transplant in [place]. As such I will plan to arrange [...] Insured Coverage Start Date Coverage End Date [facility] [address] [address] [place], [place] [id number] MAX OWENS Self - patient is the insured MEDICAID OF [facility] [address] [place] [address] [id number] MAX OWENS Self - patient is the insured Medical (General) History Medical History History ICD Code Denies [place],DM,CVA,Lung disease,renal dise ase Pulmonary Sarcoidosis--it has also [...] being followed by Dr. Da Silva at [facility] Pulmonary Department and the lung transplant center at [facility] in [place].He is currently on 2 L of nasal cannula 24 hours a day as of the August 2024 office visit. Surgical History Surgery Date(Month/Year) Hernia repair--umbilical 2017
--- OUTSIDE RECORDS SUMMARY | 2025-02-13 12:39 | XMS_ITS | Encounter Summary ---
Author Organization [facility] Address [address] [place] [address] Phone Care Team Providers Care Pack Press Operator Name Role Phone Jaz Myers MD Primary Care Provider [phone] Radha Fox MD, S Unavailable Devyn Jay MD Unavailable [phone] Encounter Details Date Type Department Care Team (Late st Contact Info) Description 11/16/2023 Procedure Pass [facility], Ct Scan - [address] [address] Social History Tobacco Use Types Packs/Day Years [...] 5:07 PM EDT Nany Warren RN * [place] Suicide Severity Rating Scale (Screener/Recent Self-Report) Question [...] documented as of this encounter Care Teams Pack Press Operator Relationship Specialty Start Date End Date Jaz Myers MD [address] [place] [address] PCP - General Internal Medicine 11/16/23 Radha Fox MD, S [address] [place] [id number] [email or web address] Referring Physician Pulmonary Disease 06/14/24 Devyn Jay MD [address] [place] [address] Pulmonary Disease 09/08/24 documented as of this encounter Additional Source Comments The information contained in this document represents components of the legal health record. It is not the complete legal health record.[facility]
--- OUTSIDE RECORDS SUMMARY | 2025-02-13 12:39 | XMS_ITS | Encounter Summary ---
Author Organization [facility] Address [address] [place] [address] Phone Care Team Providers Care Safety Glass Installer Name Role Phone Jaz Myers MD Primary Care Provider [phone] Radha Fox MD, S Unavailable Devyn Jay MD Unavailable [phone] Encounter Details Date Type Department Care Team (Late st Contact Info) Description 11/17/2023 Procedure Pass [facility] Endoscopy Admitting Dept Virtual Department [address] [place] [address] Social History Tobacco Use Types Packs/Day Years [...] documented as of this encounter Care Teams Safety Glass Installer Relationship Specialty Start Date End Date Po, Jaz Whalen MD [address] [place] [address] PCP - General Internal Medicine 11/16/23 Radha Fox MD, S [address] [place] [address] [address] [place] [address] [email or web address] Referring Physician Pulmonary Disease 06/14/24 Devyn Jay MD [address] [place] [address] [address] [place] [address] Pulmonary Disease 09/08/24 documented as of this encounter Additional Source Comments The information contained in this document represents components of the legal health record. It is not the complete legal health record.[facility]
--- OUTSIDE RECORDS SUMMARY | 2025-02-13 12:39 | XMS_ITS | Encounter Summary ---
Author Organization [facility] Address [address] [place] [address] Phone Care Team Providers Care Electrical Sign Wirer Name Role Phone Jaz Myers MD Primary Care Provider [phone] Radha Fox MD, S Unavailable Devyn Jay MD Unavailable [phone] Reason for Referral * MRI/CAT Scan - Closed Specialty Diagnoses / Procedures Referred By Contac t Referred To Contact Radiology Diagnoses Interstitial lung disease Procedures NC PET/CT Cardiac Sarcoid PET/SPECT NC SPECT MYOCARDIAL VIABILITY CHG MYOCRD IMG PET METAB EVAL SINGLE STUDY CNCRNT CT CHG MYOCARDIAL SPECT SINGLE STUDY AT REST OR STRESS Radha Fox MD, S [address] [address] Phone: tel: fax: [email or web address] Referral ID Status Reason Start Date Expiration Date Visits Re quested Visits Authorized [id number] Closed 06/21/2024 08/29/2024 1 1 Encounter Details Date Type Department Care Team (Latest Contact Info) Description 06/16/2024 Ancillary Orders [facility]-P[facility] Medicine [address] [place] [address] Radha Fox MD, S [address] [place] [address] [email or web address] Interstitial [...] 06/19/2024 9:22 AM Beth Anderson RN * [place] Suicide Severity Rating Scale (Screener/Recent Self-Report) Question Answer Date of Assessment Author 1. Wish to be (Past 1 Month) No 06/19/2024 9:22 AM Beth Fernando RN 2. Non-Specific Active Suicidal Thoughts (Past 1 Month) No 06/19/2024 9:22 AM Beth Fernando RN 6. Suicidal Behavior (Lifetime) No 06/19/2024 9:22 AM GUILLERMO [place]ville[place]eth nelson Nav orozco RN documented as of [...] documented as of this encounter Care Teams Electrical Sign Wirer Relationship Specialty Start Date End Date Jaz Myers MD [address] [place] [address] PCP - General Internal Medicine 11/16/23 Radha Fox MD, S [address] [place] [address] 3 [place] [address] Referring Physician Pulmonary Disease 06/14/24 Devyn Jay MD [address] [place] [address] [address] [place] [address] Pulmonary Disease 09/08/24 documented as of this encounter Additional Source Comments The information contained in this document represents components of the legal health record. It is not the complete legal health record.[facility]
--- OUTSIDE RECORDS SUMMARY | 2025-02-13 12:39 | XMS_ITS ---
Author Organization [facility] Address [address] [place] [address] Phone Care Team Providers Care Continuing Education Director Name Role Phone Jaz Myers MD Primary Care Provider [phone] Radha Fox MD, S Unavailable Devyn Jay MD Unavailable [phone] Transplant Episode Lung Candidate [facility] [place] began on 06/19/2024 Marked as Deferred on 10/18/2024 Reason: Unable to Contact Patient Lung CoordinatorAna Da Silva RN Email: [email or web address] Scores Score Value Updated Exceptions/Reas ons CPRA 0 08/03/2024 LAS Not available Care Team Name Role Phone Fax Email Ana Da Silva RN Lung Coordinator [phone] [email or web address] Giovana Self Property Maintenance Technician [phone] [email or web address] Radha Fox MD, S Referring Physician [phone] [email or web address] Evette Reilly Tnt Line Supervisor N/A N/A [email or web address] [email or web address] Pre-Transplant Referred: 06/14/2024 Evaluation began: 06/19/2024
--- OUTSIDE RECORDS SUMMARY | 2025-02-13 12:40 | XMS_ITS | Encounter Summary ---
Author Organization [facility] Address [address] [place] [address] Phone Care Team Providers Care Top Carrier Name Role Phone Jaz Myers MD Primary Care Provider [phone] Radha Fox MD, S Unavailable Devyn Jay MD Unavailable [phone] Encounter Details Date Type Department Care Team (Late st Contact Info) Description 05/24/2024 Transcribe Orders [facility] EKG [address] [place] [address] Jaz Myers MD [address] [place] [address] Social History Tobacco Use Types [...] documented as of this encounter Care Teams Top Carrier Relationship Specialty Start Date End Date Po, Jaz Whalen MD [address] [place] [address] Drive [address] [place] [address] PCP - General Internal Medicine 11/16/23 Radha Fox MD, S [address] [place] [address] 3 [place] [address] Referring Physician Pulmonary Disease 06/14/24 Devyn Jay MD [address] [place] [address] [address] [place] [address] Pulmonary Disease 09/08/24 documented as of this encounter Additional Source Comments The information contained in this document represents components of the legal health record. It is not the complete legal health record.[facility]
--- OUTSIDE RECORDS SUMMARY | 2025-02-13 12:40 | XMS_ITS | Encounter Summary ---
Author Organization [facility] Address [address] [place] [address] Phone Care Team Providers Care Application Security Specialist Name Role Phone Jaz Myers MD Primary Care Provider [phone] Radha Fox MD, S Unavailable Devyn Jay MD Unavailable [phone] Encounter Details Date Type Department Care Team (Late st Contact Info) Description 05/19/2024 Procedure Pass [facility] Echocardiography [address] [place] [address] Social History Tobacco Use Types Packs/Day Years [...] documented as of this encounter Care Teams Application Security Specialist Relationship Specialty Start Date End Date Jaz Myers MD [address] [place] [address] PCP - General Internal Medicine 11/16/23 Radha Fox MD, S [address] [place] [address] [email or web address] Referring Physician Pulmonary Disease 06/14/24 Devyn Jay MD [address] [facility] [address] [place] [address] Pulmonary Disease 09/08/24 documented as of this encounter Additional Source Comments The information contained in this document represents components of the legal health record. It is not the complete legal health record.[facility]
--- OUTSIDE RECORDS SUMMARY | 2025-02-13 12:40 | XMS_ITS | Encounter Summary ---
Author Organization [facility] Address [address] [place] [address] Phone Care Team Providers Care Breast Puller Name Role Phone Jaz Myers MD Primary Care Provider [phone] Radha Fox MD, S Unavailable Devyn Jay MD Unavailable [phone] Encounter Details Date Type Department Care Team (Late st Contact Info) Description 05/19/2024 Procedure Pass [facility] [address] [place] [address] Social History Tobacco Use Types Packs/Day Years [...] documented as of this encounter Care Teams Breast Puller Relationship Specialty Start Date End Date Po, Jaz Whalen MD [address] [place] [id number] PCP - General Internal Medicine 11/16/23 Radha Fox MD, S [address] [facility] [address] [place] [address] [email or web address] Referring Physician Pulmonary Disease 06/14/24 Devyn Jay MD [address] [facility] [address] [place] [address] Pulmonary Disease 09/08/24 documented as of this encounter Additional Source Comments The information contained in this document represents components of the legal health record. It is not the complete legal health record.[facility]
== END 2025-02-13 12:01 | disposition home or self-care (01) ==
LOC: HO.HMCH 10:27
PROVIDERS: PCP Internal Medicine; Visit Provider Internal Medicine
DX: R23.3 Spontaneous ecchymoses (principal); D50.8 Other iron deficiency anemias; D68.59 Other primary thrombophilia; J84.9 Interstitial pulmonary disease, unspecified; Z23 Encounter for immunization

== ENCOUNTER 2025-02-15 07:05 | Outpatient (REF) | payer OTHER, SELFPAY ==
[2025-02-15 07:19] LABS: MANUAL DIFF FLAG NO
[2025-02-15 07:58] LABS: Hematocrit 40.7 % (42.0-52.0); Hemoglobin 12.9 g/dl (14.0-18.0); Imm Gran Abs Auto 0.04 X10*3/uL (0.00-0.03); Imm Gran Pct Auto 0.5 % (0.0-0.4); Lymphocytes Absolute Auto 1.4 X10*3/uL (1.2-4.9); Mean Corpuscular HGB Conc 31.7 g/dl (31.0-36.0); Mean Corpuscular Hemoglobin 28.1 pg (27.0-33.0); Mean Corpuscular Volume 88.7 fL (80.0-98.0); NRBC Abs Auto 0.000 X10*3/uL (0.0-0.012); NRBC Pct Auto 0.0 /100WBC (0.0-0.2); Platelet Count 203 X10*3/uL (160-400); Red Blood Count 4.59 X10*6/uL (4.60-5.80); White Blood Count 8.3 X10*3/uL (4.8-10.8)
[2025-02-15 08:05] LABS: INTERNATIONAL NORM RATIO 2.2 (0.9-1.1); Prothrombin Time 25.8 SEC (10.9-12.4)
[2025-02-15 08:08] LABS: Partial Thromboplastin Time 35.3 SEC (26.7-34.1)
[2025-02-15 08:39] LABS: Alanine Aminotransferase 21 U/L (0-40); Albumin Level 4.1 g/dL (3.5-5.0); Alkaline Phosphatase 65 U/L (39-117); Anion Gap 12 (12-20); Aspartate Amino Transferase 22 U/L (5-37); Blood Urea Nitrogen 12 mg/dL (9-16); Calcium 9.5 mg/dL (8.4-10.2); Carbon Dioxide 33 mmol/L (22-29); Chloride 104 mmol/L (96-108); Estimated Glomerular Filt Rate > 60; Potassium 3.5 mmol/L (3.3-5.1); Sodium 145 mmol/L (135-145); Total Protein 6.9 g/dL (6.5-8.0)
[2025-02-15 08:58] LABS: Free T4 (Free Thyroxine) 1.06 ng/dL (0.71-1.85); Thyroid Stimulating Hormone 0.42 uIU/mL (0.32-4.0)
[2025-02-16 22:38] LABS: Proteinase 3 PR3 Antibodies <1.0 AI
[2025-03-02 13:04] LABS: Anti Nuclear Antibody Pattern Nuclear, Homogeneous; Anti Nuclear Antibody Screen POSITIVE (NEGATIVE); Anti Nuclear Antibody Titer 1:80 titer
== END 2025-02-15 07:06 | disposition home or self-care (01) ==
LOC: HO.LAB 07:05
PROVIDERS: PCP Internal Medicine; Visit Provider Internal Medicine
DX: Z01.84 Encounter for antibody response examination (principal); R79.89 Other specified abnormal findings of blood chemistry; R23.3 Spontaneous ecchymoses
CPT/HCPCS: 36415; 80053; 82784; 84439; 84443; 85025; 85610; 85652; 85730; 86021; 86038; 86039; 86140; 86162

== ENCOUNTER 2025-02-22 12:40 | Outpatient (AMB) | payer OTHER, SELFPAY ==
--- OUTSIDE RECORDS SUMMARY | 2024-11-27 07:40 | XMS_ITS ---
Author Organization [facility] Address [address] [place] [address] Care Team Providers Care Corrections Sergeant Name Role Phone Jaz Myers MD Primary Care Provider Mason Castro [phone] REASON FOR VISIT screening colonoscopy Encounters Encounter Location Date Provider Diagnosis [facility] [place] Out[place] [address] [place] [id number] 11/27/2024 Mason Rock Plan Of Treatment No Information Progress Notes * NELLY OWENS EDOB:[birth year] (59 yo M)Acc No.[id number]:11/27/2024 COLON WITH MAC Patient: NELLY BRANHAM Provider: Vinicio Rock MD :1965 A ge:59 Y S ex:Male Date:11/27/2024 Address:[address] [place], [place] [phone] Pcp:Jaz Myers MD Subjective: * Chief Complaints: [...] MD Date: 0 11/27/2024 Generated for Castilloi ng/Fadaniellag/eTransmitting on: 1 03:48 PM EDT
--- OUTSIDE RECORDS SUMMARY | 2024-12-01 15:12 | XMS_ITS ---
Author Organization [facility] Address [address] [place] [address] Care Team Providers Care Cook Helper Preserves Name Role Phone Jaz Myers MD Primary Care Provider Mason Castro [phone] REASON FOR VISIT ? need to treat colitis on 11/27 colon Encounters Encounter Location Date Provider Diagnosis [facility] [address] [place] [address] 12/01/2024 [place] Plan Of Treatment No Information Progress Notes * NELLY OWENS EDOB:[birth year] (59 yo M)Acc No.[id number]:12/01/2024 Patient: NELLY BRANHAM :1965 A ge:59 Y S ex:Male Address:[address] [place] [address], [address] Subjective: * Chief Complaints: * ? need to treat colitis on 11/27 colon * Medical History: * Surgical History: * Hospitalization/Major Diagno stic Procedure: * Medications: Objective: * Vitals: * Physical Examination: Assessment: Plan: * Treatment: * Procedure Codes: * * Date:
[2025-02-22 12:55] VITALS: BP 124/60; PULSE 97; O2SAT 92; BMI 23.6
--- NOTE | 2025-02-22 12:55 | A.OFFVIS_ITS ---
Vital Signs 02/22/25 12:55 Height 5 ft 4 in Weight 137 lb 12.623 oz BMI 23.6 BP 124/60 Blood Pressure Location Lt brachial Position Sitting Pulse 97 Pulse Source Pulse Oximeter Pulse Oximetry (%) 92 Oxygen Delivery Method Nasal Cannula Oxygen Flow Rate 2 Intake Visit Reasons: Pulmonary Fibrosis Instant Print Operator Required: No Accompanied by: Self / Same As Patient Allergies No Known Allergies (No Known Allergies*) Allergy (Verified 02/22/25 12:58) HPI Comments Details: The patient is a 59-year-old gentleman with a known history of sarcoidosis. 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 At that point he also had a rash on the face. The patient was noted to have lupus pernio. He did have a biopsy-proven sarcoidosis. The patient did have a CT scan of the chest demonstrating pulmonary nodules and also lymphadenopathy. Although the diagnosis of sarcoid was made based on the skin biopsy. I do not have those results is all per the patient. The patient then was followed by a local product evangelist. He was placed on prednisone. Ultimately more recently than that the patient start having worsening shortness of breath and cough. Was then placed on methotrexate up to 8 tablets of the 2.5 mg weekly. However after he started the methotrexate he has been noticing worsening cough and shortness of breath. He did have a recent chest x-ray done at the [facility] which I personally reviewed. It appears that he has a chronically elevated right hemidiaphragm but now appears to have more hazy opacities bilaterally suggesting pneumonitis. I did compare that to his previous x-ray from October which she did not have the degree of pneumonitis as he has now. Therefore I am concerned that he is having some adverse effects of the methotrexate. Assess as far as I know the only involvement of the sarcoid has been his lungs his skin and also the uveitis. 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 It is likely that the thrombotic issues are also related to sarcoidosis. He denies any other involvement of any other end-organ. We did review his blood work his total bili is a little elevated and he has had issues with liver in the past. But is hard to know for sure if is related to sarcoid any other etiology. The patient complains that his cough is very significant. He had call the on-call physician was given Tessalon Perles without any significant improvement. For now while we deal with his active sarcoid issue go ahead and give her some codeine cough syrup patient does use state Travis often at nighttime to make sure that he can stop coughing. 08/03/2022 the patient is here for a pulmonary follow-up visit. He still the same. He still complains of cough and some chest congestion. The mucus is yellowish and whitish in color. Kxan-en-xsmysbse severity. Did have worse at nighttime. The patient did switch over to mycophenolate from methotrexate. Seems to be tolerating it although still low dose of 100 mg twice a day. Was able to cut down the prednisone from 20 mg to 10 mg which is reassuring. Will continue to optimize his sarcoid therapy by increasing the mycophenolate to 1000 mg twice a day and also decreasing the prednisone some 0.5 mg. He also will going to go very slowly to make sure that he is able to decrease her dose effectively. We did review his CT scan of the chest demonstrating significant interstitial lung disease and pulmonary nodules when compared to his CT scan from 2014. He also had pulmonary function studies demonstrating a moderate restrictive ventilatory defect. In part he does have an elevated right hemidiaphragm that is resulting in diminished lung capacity. At this point will continue to maintain him on therapy to make sure that he does not have any progression of the scarring if is due to the sarcoidosis. 11/06/2022 the patient is here for a pulmonary follow-up visit. He continues with his ongoing chest congestion and cough. Moderate severity. Worse at n ighttime. Has not responded to the respiratory therapy or the immunosuppressive therapy. He does bring up chest congestion although have been able to get a culture. We did review his CT scan of the chest. The patient does have normal findings. Based on his ongoing cough and his lack of response to his current therapy will plan to perform bronchoscopy. He does have pertinent S deficiency with hypercoagulable state and currently on Coumadin. I will be working with the Coumadin clinic in order to get him ready for the procedure. 01/29/2023 the patient is here for apulmonary follow up visit. Complaining that the cough is no better. Moderate in severity. Patient did have significant evidence of bronchomalacia. This is likely contributing to his significant cough. He also had moderate mucoid secretions that were suction. Patient is cultures were all negative. His endobronchial biopsies were negative for any sarcoidosis. Unfortunate patient continues to cough. Explained to him that the issue is the collapsing of the airways. At this point will start him on CPT with the Acapella valve to help him clear secretions. The patient will continue with current respiratory therapy. He will start cough suppressant. 05/06/2023 the patient has a telehealth visit today. He has not recovering from a viral syndrome on home. He is feeling better. He continues on the prednisone 7.5 mg daily and also continues on the mycophenolate. Seems to be tolerating therapy well and his blood sugars have been okay. In regards of his respiratory symptoms he has been coughing a little more secondary to the viral syndrome her ulel-bp-cyfifouf severity. Otherwise feels well he does need any additional therapies at this time. Will plan to repeat his CT scan in 3 months' time year from his last 1 to see the progression of his underlying nodular densities and interstitial lung disease. 08/13/2023 the patient is here for pulmonary follow-up visit. The patient continues have a cough. The cough is moderate severe. He is tried multiple medications without any significant improvement. In regards of the sarcoidosis the patient has been on the chronic prednisone and also has been on mycophenolate 2 g a day. He is noticed also worsening dyspnea on exertion. Lokh-ag-cbdaeolt severity. He did have a CT scan of the chest which we personally reviewed. It appears it has interval worsening of the pulmonary fibrosis which is concerning. He is already on high dose of mycophenolate and on chronic prednisone. Will go ahead and give him a prednisone taper to see if we can improve the symptoms. In the meantime we talked about other alternative therapies such as Remicade. The patient is open to trying these medications. Will go ahead and request blood work to make sure that he can start the therapy as soon as possible. I also did offer him a 2nd opinion at the sarcoid Clinic at [facility]. However, the patient is concerned about the drive. Will continue to discuss that. Specially in view of the worsening fibrosis. We did go for 6 minute walk test the patient did desaturate down to 87% with activity on room air. Did qualify for a conserving device at 2 L pulse. Will go ahead and request a concentrator and portable oxygen concentrator through [employer] [facility]. 10/26/2023 the patient is here for pulmonary follow-up visit. Overall the patient has been doing well. He is still coughing though. Moderate severity. Denies any shortness of breath. He was switched over to Remicade because he continued to have progression of the interstitial lung disease even on high doses of the mycophenolate. He seems to be tolerating medication well infusions are going well without any adverse effects. Will plan to repeat an x-ray in the next few months to see if there is any progression. Although his respiratory exam is indeed better this time. His cough is mainly in upper airway cough syndrome. Will try to treat him with Sudafed and also 1st generation antihistamines to see if we can settle down the cough. He is tried multiple other khqt-lyo-wjqsznn medications in prescription medication without any significant improvement. Follow-up in 3 months. 12/08/2023 the patient is here for hospital follow-up visit. The patient was developing worsening respiratory symptoms and he was admitted to [facility]. He had a CT scan of the chest there which I do not have available but the patient described it as rito out. Likely significant diffuse pneumonitis. The patient initially tested negative for COVID on the nasal swab but he did have a bronchoscopy that were positive for COVID. Therefore he was treated for COVID pneumonitis and pneumonia. He was placed on oxygen. He is prednisone was increased from 7.5 2 higher amount. He was subsequently discharged on a prednisone taper. The patient is still having hard time breathing he is using oxygen. We did give him a portable oxygen concentrator to use after, but, the patient has had a hard time with it. Since that is working. We did call the DME so they can look at it. In the meantime we placed him on oxygen which did help. The patient is still working. He has hard time not working and therefore he needs to have the oxygen order to continue his working activities. He did have a chest x-ray today which I personally reviewed demonstrating still persistent elevation of the right hemidiaphragm although that is chronic interstitial changes which appeared to be chronic. And some degree of ill-defined opacities in the upper lung zones which is new but since be getting better. His baseline x-ray was not normal on the 1st place. He has been on Remicade. His next dose is sometime in January. Will follow-up in a couple weeks. The meantime he is going to increase the prednisone to 20 mg from his baseline 7.5 to try to decrease the inflammatory changes. 12/30/2023 the patient is here for a pulmonary follow-up visit. He is not feeling any better. He did go up to 20 mg of prednisone. He continues on the Remicade. The patient did have a chest x-ray demonstrating interval worsening of the interstitial lung disease primarily the left hemithorax where he was primarily preserved. He does have an elevated right hemidiaphragm. He has been having issues with a portable oxygen concentrator. He did have to go up to 4 L pulse which is fine with activity. He can keep it at 2 L at rest. We talked about deep breathing exercises to make sure that he maximize his the respiratory effort and gas exchange. In view of the worsening pulmonary fibrosis will be a good candidate for Ofev. I will send a prescription to the pharmacy once we get approval. In the meantime pulmonary rehabilitation will be keep. The patient has been on 20 mg of prednisone without any significant changes in his respiratory capacity. Therefore, will start tapering down to his baseline dose 7.5 mg. Will follow-up in 4-6 weeks. 01/31/2024 the patient is here for a pulmonary follow-up visit. The patient still struggling with his breathing. The portable oxygen concentrator is not holding him. We did do a walking oximetry and he actually needs 4 L continuous with activity to maintain a pulse ox of 89% and above. Therefore he understands that we need to switch his POC to regular oxygen tanks. Will request a trial so that we can carry the oxygen little bit better. He is having hard time working because of his oxygen needs in his increased dyspnea. Therefore, will go ahead and repeat his chest x-ray and PFTs see the degree of severity. But my suspicion is that the patient is unlikely going to be able to work with this degree of disease. He recently did start the Ofev to try to minimize the progression of the fibrosis. I hope that he can tolerate the adverse effects which included diarrhea. He will continue on the prednisone although he is cutting down slowly down to 7.5 mg. he also continues on the Remicade as previously prescribed for the sarcoidosis before the severe COVID infection. At this point the patient appears to have progressive disease and unfortunately he is not developing any significant improvement as of yet. When he returns in a couple months after his PFTs and chest x-ray we can better assess his degree of disease and potential prognosis. In the meantime will request the [employer] to change his oxygen in order for him to have adequate oxygenation and improve gas exchange. 03/27/2024 the patient is here for a pulmonary follow-up visit. Since we last spoke the patient was able to decrease the prednisone to 7.5 mg daily. in addition to that he continues on Remicade. Recently he was started on Ofev. Seems to be tolerating it just some episodes of diarrhea but the patient is adjusting well. He did undergo a recent chest x-ray which still shows significant interstitial lung disease and decreased lung volumes. Pretty similar to previous. And his PFTs again demonstrating significant restriction with also severe diffusion impairment. The patient be a great candidate for pulmonary rehabilitation at this time. saw him in the program he may need to have malaise since he is still working full-time. At this point is conditions pretty advanced. She understands that. Will go ahead and refer him [place] to see if any other medication adjustment could be provided for him to see if any improvements can be facilitated. But also because if not if he has any evidence of any progression he would also be a good candidate for lung transplantation evaluation. Therefore will refer him to [facility] in order to start the process. He still is in the oxygen although the oxygen tanks are very heavy for him to carry. I had him doing repeat conserving device trial. On 4 L pulse he was able to maintain a pulse ox of 90% He rather use the POC because of better portability outside of the home. will go ahead and try again. I will send a script to the [employer] to switch him again to the POC at least he knows what he can expect since he had been on 1 before. will continue to monitor his progress and will await the referral evaluation in [place]. 05/29/2024 The patient is here for a pulmonary follow up visit. He did have his evaluation in [place] and he was very happy with that visit. She will be starting pulmonary rehab soon. Now he is on 40mg of Prednisone and still on remicade. He continues to use oxygen, Will need to stay on continuous oxygen. We requested an oxygen cart for him. He will f/u with [place] with PFts and CT chest. In the meantime, he continues with dyspnea, moderate in severity. Also has a cough. We will continue the current therapy. Will need PCP prophylaxis if continues on high doses of prednisone. 08/17/2024 the patient is here for a pulmonary follow-up visit. He feels a little better although he still has a hard time breathing. Still on the oxygen supplementation. He has been able to cut down to 3 L. he continues on 40 mg of prednisone. He also continues on the Remicade. He has been noticing worsening cough. Typically nonproductive in nature. Could be an upper airway cough syndrome now going to the spring. His respiratory exam is reassuring. I did speak to his pulmonary team in [place] and they would like him to decrease prednisone down to 20 mg. Therefore we did come up with a regimen for decrease the medicine at this time. Will cut by 5 mg initially until he reaches 30 mg and then will cut down by 2.5 mg every 5-7 days symptoms down to 20 mg. He will continue with the rest of the therapy. When he comes back we will do another 6 minute walk test to see me qualifies for a conserving device again. In the meantime he is going to be seen the pulmonary hypertension specialist in [facility] and also will be starting the process of lung transplantation. He still taking it all in. He is moving forward with his testing. 09/15/2024 the patient is here for a pulmonary follow-up visit. The patient does have increasing dyspnea today. His heart rate is a little bit more elevated. He has been working hard of pulmonary rehabilitation. He has been using his oxygen between 2-3 L/min via nasal cannula and is been affecting beneficial. He is also working closely with [facility] regarding lung transplantation. He does need his colonoscopy in although additional procedures in order to be able to be listed. Right now he is scheduled to have a colonoscopy in November. I did send a message to see if we can do that sooner. Will go ahead and bridging with Lovenox. He will have to stop the Coumadin 5 days before start the Lovenox and also on the Lovenox and work with the Coumadin Clinic to be able to adjust that appropriately. In the meantime the patient will also need a procedure in [place] will send them the information was we have that available. He will continue with current respiratory therapy. He continues to wean slowly the prednisone which is reassuring. Will go ahead and get blood work today in an EKG as well. He will follow-up in 2-3 months. He has any issues prior to that he will call for an earlier assessment. 12/18/2024 the patient is here for a pulmonary follow-up visit. He is feeling tired lately. Has been a little bit more dyspneic with activity. He was able to decrease the prednisone down to 20 mg which is excellent. He continues on the Ofev continues to have some diarrhea. He was also having some blood per rectum related to some internal hemorrhoids. She was going to follow-up with surgery regarding getting them banded. Although his appointment was moved to a later date. He does take Coumadin for history of blood clots. Therefore he may have an issue with anemia. Will go ahead and should request a blood work and he can also start iron in the meantime. Seems to have some pale conjunctiva. The patient did have his colonoscopy and did have some biopsies showing some colitis but otherwise no evidence of any malignancy which is reassuring. He had his dental evaluation done and also has a cardiac evaluation completed. He has been able to do all the requirements for the lung transplant program. He has not heard yet from [place]. He is going to reach out sometime next week. In the meantime will release him information to them. He will continue with the current respiratory regimen continue with the current dose of prednisone of 20 mg. Will follow-up with the blood work requested today. He does have the oxygen the oxygen has been affecting beneficial. We had to switch him over to a larger tank because he was having issues with the portable oxygen concentrator. But now is having a lot of shoulder pain and he is doing better from the oxygenation so we would like to transition him back to the battery powered portable oxygen concentrator. Will send a request to his [employer] company at this time. 02/22/2025 the patient is here for pulmonary follow-up visit. Overall he is doing a little bit better. Continues on the 20 mg of prednisone continues on Remicade and also on the Ofev. He continues with the oxygen. He has yet to receive the portable oxygen concentrator. We did go for brief walking oximetry today he actually was able to maintain a pulse ox of 92% on 4 L pulse which is reassuring with activity. His respiratory exam is fairly stable. He did follow-up in [place] and they did not want to pursue with transplant at this time. He will be basically on as needed basis. He did have his colonoscopy so he did complete the workup for the lung transplant anyway. The patient continues with the Remicade infusions and he is tolerating them well. He did have blood work recently. Appears to be fairly stable. He has been tolerating the iron it his hemoglobin is better which is reassuring as well. His S2 is still very pronounced. Will request an echocardiogram to assess for the pulmonary hypertension. If indeed he does have pulmonary hypertension we can always revisit the possibility of using pulmonary vasodilators to help him with his respiratory failure specially if there is evidence of pulmonary vascular disease due to his underlying sarcoidosis. The patient will wean down the prednisone hopefully down to 10 mg slowly. Hopefully he can tolerate that if not we can also consider immunomodulator therapy. [facility] Medical History Oxygen dependent Bleeding hemorrhoids Pneumonia due to COVID-19 virus Pulmonary fibrosis ILD (interstitial lung disease) Bronchomalacia Sarcoidosis Pulmonary nodules Obesity (BMI 30.0-34.9) LFT elevation Hyperkalemia Glaucoma BPH (benign prostatic hyperplasia) Vitamin D deficiency Hypercholesterolemia Protein S deficiency DVT (deep venous thrombosis) Thrombocytopenia Surgical History History of bronchoscopy History of right inguinal hernia repair Hx of lymph node biopsy Hx of colonoscopy History of umbilical hernia repair History of appendectomy History of sinus surgery Family History Mother No problems noted. Father Medical history unknown Daughter In good health Sister In good health Brother Lung cancer Social History (Updated 02/22/25 @ 12:59 by Estrella Daniels CMA) Household Members: Significant Other Housing: House Are you a primary hospice care sales consultant to a significant other at home: No Do you presently have visiting nurse or other home services: Yes (medical supply for O2) Alcohol intake: current Alcohol intake frequency: does not drink Comment: 3x a year 2 drinks Patient Tobacco Use Status: Never used Tobacco e-Cigarette/Vaping Use: Never Used Second Hand Smoke Exposure: No service: No Current occupational status: employed Cognitive needs: No Hearing needs: No Vision needs: Yes Review of Systems Const Denies chills, Denies fatigue, Denies fever(s), Denies weight gain and Denies weight loss Eyes Denies change in vision ENT Denies dizziness Card Denies chest pain, Denies leg edema, Denies lightheadedness, Reports palpitations, Reports dyspnea on exertion, Denies orthopnea and Denies other Resp Denies cough, Reports dyspnea on exertion and Denies wheezing GI Denies hematochezia and Denies change in stool character Musc Denies abnormal gait, Denies muscle weakness, Denies numbness, Denies radiating pain into limb and Denies tingling Skin/Breast Denies new lesions and Reports rash Neuro Denies abnormal gait, Denies dizziness, Denies numbness and Denies tingling Endo Denies fatigue and Reports palpitations Sina/Lymph Denies easy bruising and Denies lymphadenopathy Aller/Immun Denies wheezing Physical Exam Vital Signs: Last Vital Signs Pulse 97 02/22/25 12:55 BP 124/60 02/22/25 12:55 Pulse Ox 92 02/22/25 12:55 Oxygen Delivery Method Nasal Cannula 02/22/25 12:55 Oxygen Flow Rate 2 02/22/25 12:55 BMI result Body Mass Index 23.6 Const General: comfortable HEENT Head: Yes normocephalic Eyes General: appearance normal, both eyes and all related structures Neck Neck: Yes supple Chest Chest palpation & inspection: normal inspection of the chest Resp Effort & Inspection: normal respiratory effort Auscultation: diminished lung sounds Cardio Rate: tachycardic Rhythm: regular rhythm Heart sounds: S1 normal heart sound present and S2 normal heart sound present GI Auscultation: normal bowel sounds Skin General skin exam: no rashes or lesions noted Extrem General: Yes no clubbing, cyanosis or edema Assessment & Plan Assessment & Plan (1) ILD (interstitial lung disease): Code(s): J84.9 - Interstitial pulmonary disease, unspecified Category: Medical (2) Chronic respiratory failure: Code(s): J96.10 - Chronic respiratory failure, unspecified whether with hypoxia or hypercapnia Category: Medical Qualifiers: Respiratory failure complication: hypoxia and hypercapnia Qualified Code(s): J96.11 - Chronic respiratory failure with hypoxia; J96.12 - Chronic respiratory failure with hypercapnia (3) Pulmonary fibrosis: Comment: 2011 Code(s): J84.10 - Pulmonary fibrosis, unspecified Category: Medical (4) Pulmonary nodules: Code(s): R91.8 - Other nonspecific abnormal finding of lung field Category: Medical (5) 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 Da Silva ([facility]on continuous O2 2L Code(s): D86.9 - Sarcoidosis, unspecified Category: Medical Plan requesting oxygen 2l/pulse at rest and 4L/pulse with activity, requesting battery operated POC JL Prednisone 20mg, slowly taper by 1mg every 2 weeks till reaches 10mg daily continue Remicade continue OFEV due to he progression of the pulmonary fibrosis CPT with acapella valve Pulmonary rehab [facility] Pulmonary for evaluation, lung transplant evaluation on hold Bloodwork continue Iron ECHO ?vasodilator therapy F/U 2-3 months Orders: Orders CA echo transthoracic complete Today I27.20 - Pulmonary hypertension, unspecified Medications: New prednisone 15 mg (3 x 5 mg) PO DAILY 90 tabs 11RF 30 days prednisone 4 mg (4 x 1 mg) PO DAILY 120 tabs 3RF 30 days Coding Level of Care Code Est Pt Level 5 (68768) Complex EM visit Add On G2211 Diagnoses ILD (interstitial lung disease) J84.9 Chronic respiratory failure with hypoxia and hypercapnia J96.11; J96.12 Respiratory failure complication: hypoxia and hypercapnia Pulmonary fibrosis J84.10 Pulmonary nodules R91.8 manager long term care systemic steroid user Z79.52 Sarcoidosis D86.9 Time Spent (min) 17
--- OUTSIDE RECORDS SUMMARY | 2025-02-22 15:48 | XMS_ITS | Encounter Summary ---
Author Organization [facility] Address [address] [place] [address] Phone Care Team Providers Care Technology Sales Consultant Name Role Phone Jaz Myers MD Primary Care Provider [phone] Radha Fox MD, S Unavailable Devyn Jay MD Unavailable [phone] Encounter Details Date Type Department Care Team (Late st Contact Info) Description 11/17/2023 Procedure Pass [facility] Endoscopy Admitting Dept Virtual Department [address] [place] [address] Social History Tobacco Use Types Packs/Day Years [...] documented as of this encounter Care Teams Technology Sales Consultant Relationship Specialty Start Date End Date Po, Jaz Whalen MD [address] [place] [address] PCP - General Internal Medicine 11/16/23 Radha Fox MD, S [address] [place] [address] 3 [place] [address] [email or web address] Referring Physician Pulmonary Disease 06/14/24 Devyn Jay MD [address] [place] [address] 200 [place] [address] Pulmonary Disease 09/08/24 documented as of this encounter Additional Source Comments The information contained in this document represents components of the legal health record. It is not the complete legal health record.[facility]
--- OUTSIDE RECORDS SUMMARY | 2025-02-22 15:48 | XMS_ITS ---
Author Organization [facility] Address [address] [place] [address] Phone Care Team Providers Care Repairer Recreational Vehicle Name Role Phone Jaz Myers MD Primary Care Provider [phone] Radha Fox MD, S Unavailable Devyn Jay MD Unavailable [phone] Transplant Episode Lung Candidate [facility] ([place], [place]) [facility] Evaluation began on 06/19/2024 Marked as Deferred on 10/18/2024 Reason: Unable to Contact Patient Lung CoordinatorAna Da Silva RN Email: [email or web address] Scores Score Value Updated Exceptions/Reas ons CPRA 0 08/03/2024 LAS Not available Care Team Name Role Phone Fax Email Ana Da Silva RN Lung Coordinator [phone] [email or web address] Giovana Self Research Dairy Farm Supervisor [phone] [email or web address] Radha Fox MD, S Referring Physician [phone] [email or web address] Evette Reilly Cadd Manager N/A N/A [email or web address] Events Pre-Transplant Referred: 06/14/2024 Evaluation began: 06/19/2024
--- OUTSIDE RECORDS SUMMARY | 2025-02-22 15:48 | XMS_ITS | Patient Health Record ---
Author Organization [facility] Address [address] [place] [address] Care Team Providers Care Samples And Repairs Preparer Name Role Phone Jaz Myers MD Primary Care Provider Mason Castro [phone] Allergies No Known Allergies Results Component Value Reference Range Notes Prothrombin Time INR Reviewed date:11/28/2024 10:12:07 AM Interpretation: Performing Lab:[facility], [address] [place] [phone] Notes/Report: Prothrombin Time 11.8 10.9-12.4 SEC [employer]NATIONAL [...] (Not yet reviewed by provider) Interpretation: Performing Lab:[facility], [address] [place] [phone] Notes/Report: Reason For Referral No Information Medications [...] 20 MG 1 tablet Orally Once a day; Duration: 30 day(s) For pulmonary sarcoidosis Active Immunizations [...] Status Risk Notes Problem Colon cancer screening (864295148) Colon cancer screening (Z12.11) Active confirmed Problem Rectal bleeding (00189645) Rectal bleeding (K62.5) Active confirmed Problem History of adenomatous polyp of colon (149380062) History of adenomatous polyp of colon (Z86.010) Active confirmed Problem Preprocedural examination (526531881554138) Preprocedural examination (Z01.818) Active confirmed Problem Diverticulosis of colon (382366027) Diverticulosis of colon (K57.30) Active confirmed Vital Signs Temperature 97.8 degrees Fahrenheit 09/06/2024 Blood pressure diastolic 01 mm Hg 09/06/2024 Height 64 in 09/06/2024 Blood pressure systolic 001 mm Hg 09/06/2024 Weight 136 lbs 09/06/2024 BMI 23.34 kg/m2 09/06/2024 Procedures Procedure Date Ordered Date Performed Result Body Sit e COLONOSCOPY 09/06/2024 N/A Encounters Encounter Location Date Provider Diagnosis [facility] Outpatient [address] [place] [id number] 11/27/2024 Mason Rock [facility] [address] [place] [address] 09/06/2024 Mason Rock History of adenomato us polyp of colon Z86.010 ; Preprocedural examination Z01.818 and Colon cancer screening Z12.11 [facility] [address] [place] [address] 12/01/2024 Mason Rock [facility] [address] [place] [address] 09/06/2024 Mason Rock [facility] [address] [place] [address] 11/20/2024 Mason Rock Assessments Encounter Date Diagnosis [...] cleared for a potential lung transplant in [place]. As such I will plan to arrange this for him. He will need to stop Coumadin for 5 days prior to the procedure and obtain a prescription and instructions for Lovenox use from Dr. Calabrese. We will also need to obtain clearance and some records from both Dr. Da Silva and the lung transplant clinic at [facility]. Full consent has been obtained [...] cleared for a potential lung transplant in [place]. As such I will plan to arrange this for him. He will need to stop Coumadin for 5 days prior to the procedure and obtain a prescription and instructions for Lovenox use from Dr. Calabrese. We will also need to obtain clearance and some records from both Dr. Da Silva and the lung transplant clinic at [facility]. Full consent has been obtained [...] cleared for a potential lung transplant in [place]. As such I will plan to arrange this for him. He will need to stop Coumadin for 5 days prior to the procedure and obtain a prescription and instructions for Lovenox use from Dr. Calabrese. We will also need to obtain clearance and some records from both Dr. Da Silva and the lung transplant clinic at [facility]. Full consent has been obtained [...] Insured Coverage Start Date Coverage End Date [facility] [address] [address] [place], [place] [id number] MAX OWENS Self - patient is the insured MEDICAID OF [facility] [address] [place] [address] [id number] MAX OWENS Self - patient is the [...] being followed by Dr. Da Silva at [facility] Pulmonary Department and the lung transplant center at [facility] in [place].He is currently on 2 L of nasal cannula 24 hours a day as of the August 2024 office visit. Surgical History Surgery Date(Month/Year) Hernia repair--umbilical 2017
--- OUTSIDE RECORDS SUMMARY | 2025-02-22 15:49 | XMS_ITS | Clinical Summary ---
Author Organization [facility] Address [address] [place] [address] Phone Care Team Providers Care Post Tensioning Ironworker Name Role Phone Jaz Myers MD Primary Care Provider [phone] Radha Fox MD, S Unavailable Devyn Jay MD Unavailable [phone] Allergies No known active allergies Medications warfarin (COUMADIN) 4 MG tablet Take 4 mg by mouth daily. Active VENTOLIN HFA 90 mcg/actuation inhaler INHALE 2 PUFFS EVERY 6 HOURS NEEDED FOR SHORTNESS OF BREATH OR WHEEZING FOR 30 DAYS 05/09/20 24 Active OFEV 150 mg capsule 04/26/20 24 Active predniSONE (DELTASONE) 10 MG tablet Take 4 tablets (40 mg total) by mouth daily with breakfast. 30 tablet 3 05/19/19 25 Active cholecalcifero l (VITAMIN D3) 2,000 unit capsule Take 5,000 Units by mouth 2 (two) times a day. 06/03/19 25 Active calcium citrate 250 mg calcium Tab Take 2 tablets by mouth every morning. 06/03/19 25 Active PRED FORTE 1 % ophthalmic suspension Place 1 drop into the left eye daily. 03/22/20 24 Active cetirizine (ZYRTEC) 10 MG tablet TAKE 1 TABLET BY MOUTH EVERY DAY 90 tablet 1 08/19/19 25 Active omeprazole (PRILOSEC) 40 MG capsule TAKE 1 CAPSULE (40 MG TOTAL) BY MOUTH DAILY. 90 capsule 1 02/17/20 25 Active omeprazole (PRILOSEC) 40 MG capsule TAKE 1 CAPSULE (40 MG TOTAL) BY MOUTH DAILY. 90 capsule 1 08/19/19 25 025 Discontinued Active Problems Problem Noted Date Diagnosed Date [...] bronch washings have tested positive for covid. Home Health Nurse saw ? Lesion on right vocal cord. [...] management of sarcoidosis (followed by pulmonology in [place]). Patient had been using supplemental oxygen increasingly, [...] dose until advised further by patient's primary asset specialist -Goal SpO2 with supplemental oxygen > 90% and < 96% -Outpatient follow-up with asset specialist in [place] Resolved Problems Problem Noted Date Diagnosed Date [...] Encounters Date Type Department Care Team Description 02/16/2025 Refill [facility] [address] [place], [place] [id number] Matilda Mukherjee MD Medication Refill from Last 3 Months Immunizations Immunization Administration [...] SCREENING 05/19/2025 05/19/2024 LIPID PANEL 08/03/2029 08/03/2024 RSV VACCINE (1 - 1-dose 75+ series) 2041 SMOKING STATUS SCREENING (On ce After 26 [...] (08/03/2024 1:38 PM EDT) HCV Nonreactive Nonreactive [facility] 08/03/2024 1:38 PM EDT 08/03/2024 2:00 PM EDT Melinda Epps MD LAB BLOOD ORDERABLES Final Resul t Performing Organization Address City/[facility] Co de Phone Number [facility] [address] [place] [address] * (ABNORMAL) Lipid panel (08/03/2024 1:38 PM EDT) CHOLESTEROL 253(H) <200 mg/dL [facility] TRIGLYCERIDES 255(H) 35 - 150 mg/dL [facility] HDL 100(H) 40 - 80 mg/dL [facility] CALCULATED LDL 102 50 - 129 mg/dL [facility] VLDL 51(H) <31 mg/dL [facility] CARDIAC RISK RATIO 2.5 0.0 - 4.0 [facility] 08/03/2024 1:38 PM EDT 08/03/2024 2:00 PM EDT us Melinda Epps MD LAB BLOOD ORDERABLES Final Resul t Performing Organization Address City/[facility] Co de Phone Number [facility] [address] [place] [phone] from Last 3 Months or Most Recently Relevant to Health Maintenance [place] [address] [place] [address] [employer] [facility] [place] [address] [place] [address] [place] [address] [place] [address] [place] [address] [place] [address] [employer] [facility] [place] [address] [place] [address] ACO Advance Directives For more information, please contact: [phone] (9AM - 5PM Karla/[facility], Wednesday-Wednesday) Documents on File Type Date Recorded Patient Hydraulic Elevator Constructor Expl anation Healthcare Proxy 11/22/2023 5:32 PM [...] Status Communicated To: Inpatient Attending Care Teams Post Tensioning Ironworker Relationship Specialty Start Date End Date Po, Jaz Whalen MD [address] [place] [address] PCP - General Internal Medicine 11/16/23 Radha Fox MD, S [address] [place] [address] [email or web address] Referring Physician Pulmonary Disease 06/14/24 Devyn Jay MD [address] [place] [address] [address] [place] [address] Pulmonary Disease 09/08/24 Additional Source Comments The information contained in this document represents components of the legal health record. It is not the complete legal health record.[facility]
--- OUTSIDE RECORDS SUMMARY | 2025-02-22 15:49 | XMS_ITS | Encounter Summary ---
Author Organization [facility] Address [address] [place] [address] Phone Care Team Providers Care Senior Software Engineer Name Role Phone Jaz Myers MD Primary Care Provider [phone] Radha Fox MD, S Unavailable Devyn Jay MD Unavailable [phone] Encounter Details Date Type Department Care Team (Late st Contact Info) Description 05/19/2024 Procedure Pass [facility] [address] [place] [address] Social History Tobacco Use Types Packs/Day Years [...] documented as of this encounter Care Teams Senior Software Engineer Relationship Specialty Start Date End Date Po, Jaz Whalen MD [address] [place] [address] PCP - General Internal Medicine 11/16/23 Radha Fox MD, S [address] [facility] 3 [place] [address] [email or web address] Referring Physician Pulmonary Disease 06/14/24 Devyn Jay MD [address] [facility] [address] [place] [address] Pulmonary Disease 09/08/24 documented as of this encounter Additional Source Comments The information contained in this document represents components of the legal health record. It is not the complete legal health record.[facility]
--- OUTSIDE RECORDS SUMMARY | 2025-02-22 15:49 | XMS_ITS | Encounter Summary ---
Author Organization [facility] Address [address] [place] [address] Phone Care Team Providers Care Pre K Special Education Teacher Name Role Phone Jaz Myers MD Primary Care Provider Radha Fox MD, S Unavailable Devyn Jay MD Unavailable [phone] Encounter Details Date Type Department Care Team (Late st Contact Info) Description 05/19/2024 Procedure Pass [facility] Echocardiography [address] [place] [address] Social History Tobacco Use Types Packs/Day Years [...] documented as of this encounter Care Teams Pre K Special Education Teacher Relationship Specialty Start Date End Date Jaz Myers MD [address] [place] [address] PCP - General Internal Medicine 11/16/23 Radha Fox MD, S [address] [facility] 3 [place] [address] [email or web address] Referring Physician Pulmonary Disease 06/14/24 Devyn Jay MD [address] [facility] 200 [place] [address] Pulmonary Disease 09/08/24 documented as of this encounter Additional Source Comments The information contained in this document represents components of the legal health record. It is not the complete legal health record.[facility]
--- OUTSIDE RECORDS SUMMARY | 2025-02-22 15:49 | XMS_ITS | Encounter Summary ---
Author Organization [facility] Address [address] [place] [address] Phone Care Team Providers Care College Director Name Role Phone Jaz Myers MD Primary Care Provider [phone] Radha Fox MD, S Unavailable Devyn Jay MD Unavailable [phone] Encounter Details Date Type Department Care Team (Late st Contact Info) Description 05/24/2024 Transcribe Orders [facility] EKG [address] [place] [address] Jaz Myers MD [address] [place] [address] Social History Tobacco Use Types [...] documented as of this encounter Care Teams College Director Relationship Specialty Start Date End Date Po, Jaz Whalen MD [address] [place] [address] Drive [address] [place] [address] PCP - General Internal Medicine 11/16/23 Radha Fox MD, S [address] [place] [address] 3 [place] [address] Referring Physician Pulmonary Disease 06/14/24 Devyn Jay MD [address] [place] [address] 200 [place] [address] Pulmonary Disease 09/08/24 documented as of this encounter Additional Source Comments The information contained in this document represents components of the legal health record. It is not the complete legal health record.[facility]
--- OUTSIDE RECORDS SUMMARY | 2025-02-22 15:49 | XMS_ITS | Encounter Summary ---
Author Organization [facility] Address [address] [place] [address] Phone Care Team Providers Care Supervisor Coil Winding Name Role Phone Jaz Myers MD Primary Care Provider [phone] Radha Fox MD, S Unavailable Devyn Jay MD Unavailable [phone] Encounter Details Date Type Department Care Team (Late st Contact Info) Description 11/16/2023 Procedure Pass [facility], Ct Scan - [address] [address] Social History Tobacco Use Types Packs/Day Years [...] 5:07 PM EDT Nany Warren RN * [place] Suicide Severity Rating Scale (Screener/Recent Self-Report) Question [...] as of this encounter Care Teams Supervisor Coil Winding Relationship Specialty Start Date End Date Jaz Myers MD [address] [place] [address] PCP - General Internal Medicine 11/16/23 Radha Fox MD, S [address] [place] [id number] [email or web address] Referring Physician Pulmonary Disease 06/14/24 Devyn Jay MD [address] [place] [address] Pulmonary Disease 09/08/24 documented as of this encounter Additional Source Comments The information contained in this document represents components of the legal health record. It is not the complete legal health record.[facility]
--- OUTSIDE RECORDS SUMMARY | 2025-02-22 15:49 | XMS_ITS | Encounter Summary ---
Author Organization [facility] Address [address] [place] [address] Phone Care Team Providers Care Cap Sewer Name Role Phone Jaz Myers MD Primary Care Provider [phone] Radha Fox MD, S Unavailable Devyn Jay MD Unavailable [phone] Reason for Referral * MRI/CAT Scan - Closed Specialty Diagnoses / Procedures Referred By Contac t Referred To Contact Radiology Diagnoses Interstitial lung disease Procedures NC PET/CT Cardiac Sarcoid PET/SPECT NC SPECT MYOCARDIAL VIABILITY CHG MYOCRD IMG PET METAB EVAL SINGLE STUDY CNCRNT CT CHG MYOCARDIAL SPECT SINGLE STUDY AT REST OR STRESS Radha Fox MD, S [address] [address] Phone: tel: fax: [email or web address] Referral ID Status Reason Start Date Expiration Date Visits Re quested Visits Authorized [id number] Closed 06/21/2024 08/29/2024 1 1 Encounter Details Date Type Department Care Team (Latest Contact Info) Description 06/16/2024 Ancillary Orders [facility] Lung Center-Pulmonary Medicine [address] [place] [address] Radha Fox MD, S [address] [place] [address] [email or web address] Interstitial lung disease (Primary Dx) Social History [...] Author No Risk Indicated 06/19/2024 9:22 AM Bteh Anderson RN * [place] Suicide Severity Rating Scale (Screener/Recent Self-Report) Question Answer Date of Assessment Author 1. Wish to be (Past 1 Month) No 06/19/2024 9:22 AM Beth Fernando RN 2. Non-Specific Active Suicidal Thoughts (Past 1 Month) No 06/19/2024 9:22 AM Beth Fernando RN 6. Suicidal Behavior (Lifetime) No 06/19/2024 9:22 AM GUILLERMO [place] BayBeth nelson Nav orozco RN documented as of [...] documented as of this encounter Care Teams Cap Sewer Relationship Specialty Start Date End Date Jaz Myers MD [address] [place] [address] PCP - General Internal Medicine 11/16/23 Radha Fox MD, S [address] [place] [address] 3 [place] [address] Referring Physician Pulmonary Disease 06/14/24 Devyn Jay MD [address] [place] [address] 200 [place] [address] Pulmonary Disease 09/08/24 documented as of this encounter Additional Source Comments The information contained in this document represents components of the legal health record. It is not the complete legal health record.[facility]
== END 2025-02-22 13:26 | disposition home or self-care (01) ==
LOC: HO.HPS 12:40
PROVIDERS: PCP Internal Medicine; Visit Provider Hospitalist
DX: J84.9 Interstitial pulmonary disease, unspecified (principal); J96.11 Chronic respiratory failure with hypoxia; J96.12 Chronic respiratory failure with hypercapnia; J84.10 Pulmonary fibrosis, unspecified; R91.8 Other nonspecific abnormal finding of lung field; Z79.52 Long term (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 of systemic steroids; D86.9 Sarcoidosis, unspecified
CPT/HCPCS: 99214

== ENCOUNTER → 2025-02-22 12:40 | Outpatient (BNVA) | payer OTHER, SELFPAY | PROVIDERS: PCP Internal Medicine; Visit Provider Hospitalist | DX: J84.10 Pulmonary fibrosis, unspecified (principal); R91.8 Other nonspecific abnormal finding of lung field; J96.11 Chronic respiratory failure with hypoxia; J96.12 Chronic respiratory failure with hypercapnia; J84.9 Interstitial pulmonary disease, unspecified; D86.9 Sarcoidosis, unspecified; Z79.52 Long term (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 of systemic steroids; Z99.81 Dependence on supplemental oxygen | CPT/HCPCS: 99212 ==

== ENCOUNTER 2025-03-01 07:59 | Outpatient (AMB) | payer OTHER, SELFPAY ==
--- OUTSIDE RECORDS SUMMARY | 2025-03-01 08:01 | XMS_ITS | Clinical Summary ---
Author Organization [facility] Address [address] [facility] [address] [place] [address] Phone Care Team Providers Care Silver Recovery Operator Name Role Phone Jaz Myers MD Primary Care Provider [phone] Radha Fox MD, S Unavailable Devyn Jay MD Unavailable [phone] Allergies No known active allergies Medications warfarin [...] bronch washings have tested positive for covid. Pier Runner saw ? Lesion on right vocal cord. [...] management of sarcoidosis (followed by pulmonology in [place]). Patient had been using supplemental oxygen increasingly, [...] dose until advised further by patient's primary bsa/aml compliance officer -Goal SpO2 with supplemental oxygen > 90% and < 96% -Outpatient follow-up with bsa/aml compliance officer in [place] Resolved Problems Problem Noted Date Diagnosed Date [...] Encounters Date Type Department Care Team Description 02/23/2025 Procedure Pass [facility] Endoscopy Department [address] [place] [address] 02/23/2025 Hospital Encounter [facility] Endoscopy Department [address] [place] [address] 02/16/[address] [facility] [address] [place] [address] Matilda Mukherjee MD Medication Refill from Last [...] 06/19/2024 9:10 AM EST Plan of Treatment Health Maintenance Due Date [...] (08/03/2024 1:38 PM EDT) HCV Nonreactive Nonreactive [facility] 08/03/2024 1:38 PM EDT 08/03/2024 2:00 PM EDT us Melinda Epps MD LAB BLOOD ORDERABLES Final Resul t Performing Organization Address City/[facility]/ZIP Co de Phone Number [facility] [address] [place] [phone] * (ABNORMAL) Lipid panel (08/03/2024 1:38 PM EDT) CHOLESTEROL 253(H) <200 mg/dL [facility] TRIGLYCERIDES 255(H) 35 - 150 mg/dL [facility] HDL 100(H) 40 - 80 mg/dL [facility] CALCULATED LDL 102 50 - 129 mg/dL [facility] VLDL 51(H) <31 mg/dL [facility] CARDIAC RISK RATIO 2.5 0.0 - 4.0 [facility] 08/03/2024 1:38 PM EDT 08/03/2024 2:00 PM EDT us Melinda Epps MD LAB BLOOD ORDERABLES Final Resul t Performing Organization Address City/[facility] Co de Phone Number [facility] [address] [place] [phone] from Last 3 Months or Most Recently Relevant to Health Maintenance Insurance [facility] [place] [address] [place] [address] [place] [address] [place] [address] ACO [facility] ACO [facility]CO [facility] Advance Directives For more information, please contact: [phone] (9AM - 5PM Karla/[facility], Wednesday-Wednesday) Documents on File Type Date Recorded Patient Clinical Informatics Specialist Expl anation Healthcare Proxy 11/22/2023 5:32 PM [...] Status Communicated To: Inpatient Attending Care Teams Silver Recovery Operator Relationship Specialty Start Date End Date Po, Jaz Whalen MD [address] [place] [address] PCP - General Internal Medicine 11/16/23 Radha Fox MD, [facility] [address] [place] [address] Referring Physician Pulmonary Disease 06/14/24 Devyn Jay MD [address] [place] [address] [address] [place] [address] Pulmonary Disease 09/08/24 Additional Source Comments The information contained in this document represents components of the legal health record. It is not the complete legal health record.[facility]
--- OUTSIDE RECORDS SUMMARY | 2025-03-01 08:01 | XMS_ITS ---
Author Organization [facility] Address [address] [facility] [address] [place] [address] Phone Care Team Providers Care Chemical Test Engineer Name Role Phone Jaz Myers MD Primary Care Provider [phone] Radha Fox MD, S Unavailable Devyn Jay MD Unavailable [phone] Transplant Episode Lung Candidate [facility] ([place], [place]) [facility] Evaluation began on 06/19/2024 Marked as Deferred on 10/18/2024 Reason: Unable to Contact Patient Lung CoordinatorAna Da Silva RN Email: [email or web address] [email or web address] Score Value Updated Exceptions/Reas ons CPRA 0 08/03/2024 LAS Not available Care Team Name Role Phone Fax Email Ana Da Silva RN Lung Coordinator [phone] [email or web address] Giovana Self Crystal Grinder [phone] [email or web address] Radha Fox MD, S Referring Physician [phone] [email or web address] Evette Reilly Hand Candy Molder N/A N/A [email or web address] Events Pre-Transplant Referred: 06/14/2024 Evaluation began: 06/19/2024
--- OUTSIDE RECORDS SUMMARY | 2025-03-01 08:01 | XMS_ITS | Encounter Summary ---
Author Organization [facility] Address [address] [facility] [address] [place] [address] Phone Care Team Providers Care Game Breeding Farm Manager Name Role Phone Jaz Myers MD Primary Care Provider [phone] Radha Fox MD, S Unavailable Devyn Jay MD Unavailable [phone] Encounter Details Date Type Department Care Team (Late st Contact Info) Description 11/16/2023 Procedure Pass [facility], Ct Scan - [address] [address] Social History Tobacco Use Types Packs/Day Years [...] 5:07 PM EDT Nany Warren RN * [place] Suicide Severity Rating Scale (Screener/Recent Self-Report) Question [...] documented as of this encounter Care Teams Game Breeding Farm Manager Relationship Specialty Start Date End Date Jaz Myers MD [address] [place] [address] [address] [place] [address] PCP - General Internal Medicine 11/16/23 Radha Fox MD, S [address] [place] [address] [email or web address] Referring Physician Pulmonary Disease 06/14/24 Devyn Jay MD [address] [address] Pulmonary Disease 09/08/24 documented as of this encounter Additional Source Comments The information contained in this document represents components of the legal health record. It is not the complete legal health record.[facility]
--- OUTSIDE RECORDS SUMMARY | 2025-03-01 08:01 | XMS_ITS | Encounter Summary ---
Author Organization [facility] Address [address] [facility] [address] [place] [address] Phone Care Team Providers Care Strip Feeder Name Role Phone Jaz Myers MD Primary Care Provider [phone] Radha Fox MD, S Unavailable Devyn Jay MD Unavailable [phone] Encounter Details Date Type Department Care Team (Late st Contact Info) Description 05/19/[address] [facility] Echocardiography [address] [place] [address] Social History Tobacco Use Types Packs/Day Years [...] documented as of this encounter Care Teams Strip Feeder Relationship Specialty Start Date End Date Jaz Myers MD [address] [place] [address] [address] [place] [address] PCP - General Internal Medicine 11/16/23 Radha Fox MD, S [address] [place] [address] 3 [place] [address] Referring Physician Pulmonary Disease 06/14/24 Devyn Jay MD [address] [place] [address] 200 [place] [address] Pulmonary Disease 09/08/24 documented as of this encounter Additional Source Comments The information contained in this document represents components of the legal health record. It is not the complete legal health record.[facility]
--- OUTSIDE RECORDS SUMMARY | 2025-03-01 08:01 | XMS_ITS | Encounter Summary ---
Author Organization [facility] Address [address] [facility] [address] [place] [address] Phone Care Team Providers Care Rim Fire Charger Operator Name Role Phone Jaz Myers MD Primary Care Provider [phone] Radha Fox MD, S Unavailable Devyn Jay MD Unavailable [phone] Encounter Details Date Type Department Care Team (Late st Contact Info) Description 05/24/2024 Transcribe Orders [facility] EKG [address] [place] [address] Jaz Myers MD [address] [place] [address] Social History Tobacco Use Types [...] documented as of this encounter Care Teams Rim Fire Charger Operator Relationship Specialty Start Date End Date Po, Jaz Whalen MD [address] [place] [address] Drive [address] [place] [address] PCP - General Internal Medicine 11/16/23 Radha Fox MD, [facility] [email or web address] [address] [place] [address] 3 [place] [address] [email or web address] Referring Physician Pulmonary Disease 06/14/24 Devyn Jay MD [address] [place] [address] 200 [place] [address] Pulmonary Disease 09/08/24 documented as of this encounter Additional Source Comments The information contained in this document represents components of the legal health record. It is not the complete legal health record.[facility]
--- OUTSIDE RECORDS SUMMARY | 2025-03-01 08:01 | XMS_ITS | Encounter Summary ---
Author Organization [facility] Address [address] [facility] [address] [place] [address] Phone Care Team Providers Care Supervisor Filter Assembly Name Role Phone Jaz Myers MD Primary Care Provider [phone] Radha Fox MD, S Unavailable Devyn Jay MD Unavailable [phone] Encounter Details Date Type Department Care Team (Late st Contact Info) Description 02/23/2025 Procedure Pass [facility] Endoscopy Department [address] [place] [address] Social History Tobacco Use Types Packs/Day Years [...] as of this encounter Care Teams Supervisor Filter Assembly Relationship Specialty Start Date End Date Jaz Myers MD [address] [place] [address] Drive [address] [place] [address] PCP - General Internal Medicine 11/16/23 Radha Fox MD, S [address] [place] [address] 3 [place] [address] Referring Physician Pulmonary Disease 06/14/24 Devyn Jay MD [address] [place] [address] 200 [place] [address] Pulmonary Disease 09/08/24 documented as of this encounter Additional Source Comments The information contained in this document represents components of the legal health record. It is not the complete legal health record.[facility]
--- OUTSIDE RECORDS SUMMARY | 2025-03-01 08:01 | XMS_ITS | Encounter Summary ---
Author Organization [facility] Address [address] [facility] [address] [place] [address] Phone Care Team Providers Care Payable Processor Name Role Phone Jaz Myers MD Primary Care Provider [phone] Radha Fox MD, S Unavailable Devyn Jay MD Unavailable [phone] Encounter Details Date Type Department Care Team (Late st Contact Info) Description 02/23/2025 Hospital Encounter [facility] Endoscopy Department [address] [place] [address] Social History Tobacco Use Types Packs/Day Years [...] documented as of this encounter Care Teams Payable Processor Relationship Specialty Start Date End Date Jaz Myers MD [address] [place] [address] Drive [address] [place] [address] PCP - General Internal Medicine 11/16/23 Radha Fox MD, S [address] [place] [address] 3 [place] [address] Referring Physician Pulmonary Disease 06/14/24 Devyn Jay MD [address] [place] [address] 200 [place] [address] Pulmonary Disease 09/08/24 documented as of this encounter Additional Source Comments The information contained in this document represents components of the legal health record. It is not the complete legal health record.[facility]
--- OUTSIDE RECORDS SUMMARY | 2025-03-01 08:01 | XMS_ITS | Encounter Summary ---
Author Organization [facility] Address [address] [facility] [address] [place] [address] Phone Care Team Providers Care Finance And Administration Manager Name Role Phone Jaz Myers MD Primary Care Provider [phone] Radha Fox MD, S Unavailable Devyn Jay MD Unavailable [phone] Reason for Referral * MRI/CAT Scan - Closed Specialty Diagnoses / Procedures Referred By Contac t Referred To Contact Radiology Diagnoses Interstitial lung disease Procedures NC PET/CT Cardiac Sarcoid PET/SPECT NC SPECT MYOCARDIAL VIABILITY CHG MYOCRD IMG PET METAB EVAL SINGLE STUDY CNCRNT CT CHG MYOCARDIAL SPECT SINGLE STUDY AT REST OR STRESS Radha Fox MD, S [address] [address] Phone: tel: fax: mailto:[email or web address] Referral ID Status Reason Start Date Expiration Date Visits Re quested Visits Authorized [id number] Closed 06/21/2024 08/29/2024 1 1 Encounter Details Date Type Department Care Team (Latest Contact Info) Description 06/16/2024 Ancillary Orders [facility]-Pulmonary Medicine [address] [place] [address] Radha Fox MD, S [address] [place] [address] [email or web address] Interstitial lung disease (Primary [...] 06/19/2024 9:22 AM Beth [place] RN * [place] Suicide Severity Rating Scale (Screener/Recent Self-Report) Question Answer Date of Assessment Author 1. Wish to be (Past 1 Month) No 06/19/2024 9:22 AM Beth Fernando RN 2. Non-Specific Active Suicidal Thoughts (Past 1 Month) No 06/19/2024 9:22 AM Beth Fernando RN 6. Suicidal Behavior (Lifetime) No 06/19/2024 9:22 AM GUILLERMO OsburnBeth nelson VISHAL orozco documented as of this encounter Plan of Treatment Not on file documented as of this encounter Results * [...] documented as of this encounter Care Teams Finance And Administration Manager Relationship Specialty Start Date End Date Jaz Myers MD [address] [place] [address] PCP - General Internal Medicine 11/16/23 Radha Fxo MD, S [address] [place] [address] [email or web address] Referring Physician Pulmonary Disease 06/14/24 Devyn Jay MD [address] [place] [address] Pulmonary Disease 09/08/24 documented as of this encounter Additional Source Comments The information contained in this document represents components of the legal health record. It is not the complete legal health record.[facility]
--- OUTSIDE RECORDS SUMMARY | 2025-03-01 08:01 | XMS_ITS | Encounter Summary ---
Author Organization [facility] Address [address] [facility] [address] [place] [address] Phone Care Team Providers Care Mold Car Pusher Name Role Phone Jaz Myers MD Primary Care Provider [phone] Radha Fox MD, S Unavailable Devyn Jay MD Unavailable [phone] Encounter Details Date Type Department Care Team (Late st Contact Info) Description 11/17/2023 Procedure Pass [facility] Endoscopy Admitting Dept Virtual Department [address] [place] [address] Social History Tobacco Use Types Packs/Day Years [...] documented as of this encounter Care Teams Mold Car Pusher Relationship Specialty Start Date End Date Jaz Myers MD [address] [place] [address] PCP - General Internal Medicine 11/16/23 Radha Fox MD, S [address] [facility] 3 [place] [address] [email or web address] Referring Physician Pulmonary Disease 06/14/24 Devyn Jay MD [address] [place] [address] 200 [place] [address] Pulmonary Disease 09/08/24 documented as of this encounter Additional Source Comments The information contained in this document represents components of the legal health record. It is not the complete legal health record.[facility]
--- OUTSIDE RECORDS SUMMARY | 2025-03-01 08:01 | XMS_ITS | Encounter Summary ---
Author Organization [facility] Address [address] [facility] [address] [place] [address] Phone Care Team Providers Care Risk Management Internship Name Role Phone Jaz Myers MD Primary Care Provider [phone] Radha Fox MD, S Unavailable Devyn Jay MD Unavailable [phone] Encounter Details Date Type Department Care Team (Late st Contact Info) Description 05/19/2024 Procedure Pass [facility] [address] [place] [address] Social History Tobacco Use Types Packs/Day Years [...] documented as of this encounter Care Teams Risk Management Internship Relationship Specialty Start Date End Date Jaz Myers MD [address] [place] [address] Drive [address] [place] [address] PCP - General Internal Medicine 11/16/23 Radha Fox MD, S [address] [place] [address] 3 [place] [address] [email or web address] Referring Physician Pulmonary Disease 06/14/24 Devyn Jay MD [address] [place] [address] 200 [place] [address] Pulmonary Disease 09/08/24 documented as of this encounter Additional Source Comments The information contained in this document represents components of the legal health record. It is not the complete legal health record.[facility]
[2025-03-01 08:06] LABS: Prothrombin Time Whole Bld POC 23.8 sec (11.1-13.5); ~PT, ~INR - Anti Coag Clinic 2.0 (0.9-1.1)
--- NOTE | 2025-03-01 08:07 | MHC.OFFVISCO ---
Intake Intake Visit Reasons: Anticoagulation Allergies No Known Allergies (No Known Allergies*) Allergy (Verified 03/01/25 08:01) Medication List - Last Reconciled 03/01/25 by Mami Springer RN albuterol sulfate 90 mcg/actuation 2 inhalations inhalation Q6H PRN 30 days ascorbic acid (vitamin C) 500 mg PO .QD blood pressure monitor (Blood Pressure Kit) As directed calcium citrate 1,000 mg PO DAILY cetirizine 10 mg PO DAILY PRN chlorpheniramine maleate (Allergy Relief (chlorpheniramine)) 4 mg PO Q6H PRN cholecalciferol (vitamin D3) (Vitamin D3) 100 mcg (2 x 50 mcg (2,000 unit)) PO DAILY 30 days clotrimazole 1% 1 appl topical BID 4 weeks ferrous sulfate (Feosol) 325 mg PO BID 30 days infliximab (Remicade) 336 mg IV Q4W 12 months nintedanib (Ofev) 150 mg PO Q12H 30 days omeprazole 40 mg PO DAILY Oxygen Home Use As directed prednisolone acetate 1% (Pred Forte) 1 drp ophthalmic (eye) BEDTIME prednisone 20 mg PO QAM prednisone 15 mg (3 x 5 mg) PO DAILY 30 days prednisone 4 mg (4 x 1 mg) PO DAILY 30 days warfarin (Jantoven) 4 mg See Protocol PO BEDTIME Nursing Note INR: 2.0 in therapeutic range of 2-3 Medications and supplements reviewed: pt started ferrous sulfate 2 weeks ago and has a rash on trunk, arms and legs. States Dr Po is aware. Pt will notify md if rash gets worse or persists. It is red, non raised and at times itchy but pt states not bad No changes in health, diet, medications, or supplements, Denies any signs and symptoms of bleeding or bruising or clotting. Bleeding, bruising, clotting discussed Nutritional guidance given to avoid greens X 2 days and to have a serving of foods that raise the INR X 2 days Dose: 4mg X 5 days and 2mg X 2 days F/U INR: 2 weeks Patient verbalizes understanding of instructions given Anti-Coag Initial Assessment Social Hx Patient Tobacco Use Status: Never used Tobacco alcohol intake: current Alcohol intake frequency: does not drink Coding Level of Care Code Est Patient Level 1 Diagnoses Current use of anticoagulant therapy Z79.01 Assessment & Plan Assessment & Plan (1) Current use of anticoagulant therapy: Code(s): Z79.01 - USP (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
== END 2025-03-01 08:17 | disposition home or self-care (01) ==
LOC: HO.ACS 07:59
PROVIDERS: PCP Internal Medicine; Visit Provider Internal Medicine Medical Oncology
DX: Z79.01 Long term (current) use of anticoagulants (principal)

== ENCOUNTER → 2025-03-01 07:59 | Outpatient (BNVA) | payer OTHER, SELFPAY | PROVIDERS: PCP Internal Medicine; Visit Provider Internal Medicine Medical Oncology | DX: K64.8 Other hemorrhoids (principal); Z79.01 Long term (current) use of anticoagulants | CPT/HCPCS: 85610; 99211; 99212 ==

== ENCOUNTER 2025-03-01 08:16 | Outpatient (AMB) | payer OTHER, SELFPAY ==
--- NOTE | 2025-03-01 08:45 | A.OFFVIS_ITS ---
Vital Signs 03/01/25 08:50 Height 5 ft 4 in Weight 135 lb 8 oz BMI 23.3 BP 131/81 Blood Pressure Location Rt brachial Position Sitting Pulse 118 H Intake Visit Reasons: 1 month s/p rubber band procedure for hemorrhoids Intake Note: This patient presents for one month follow-up status post hemorrhoidal band ligation. Pt c/o; no complaints at this time. Instrument Repair Supervisor Required: No Accompanied by: Self / Same As Patient Allergies No Known Allergies (No Known Allergies*) Allergy (Verified 03/01/25 08:52) Medication List - Last Reconciled 03/01/25 by Saurabh Serrato MD albuterol sulfate 90 mcg/actuation 2 inhalations inhalation Q6H PRN 30 days ascorbic acid (vitamin C) 500 mg PO .QD blood pressure monitor (Blood Pressure Kit) As directed calcium citrate 1,000 mg PO DAILY cetirizine 10 mg PO DAILY PRN chlorpheniramine maleate (Allergy Relief (chlorpheniramine)) 4 mg PO Q6H PRN cholecalciferol (vitamin D3) (Vitamin D3) 100 mcg (2 x 50 mcg (2,000 unit)) PO DAILY 30 days clotrimazole 1% 1 appl topical BID 4 weeks ferrous sulfate (Feosol) 325 mg PO BID 30 days infliximab (Remicade) 336 mg IV Q4W 12 months nintedanib (Ofev) 150 mg PO Q12H 30 days omeprazole 40 mg PO DAILY Oxygen Home Use As directed prednisolone acetate 1% (Pred Forte) 1 drp ophthalmic (eye) BEDTIME prednisone 20 mg PO QAM prednisone 15 mg (3 x 5 mg) PO DAILY 30 days prednisone 4 mg (4 x 1 mg) PO DAILY 30 days warfarin (Jantoven) 4 mg See Protocol PO BEDTIME HPI HPI 1 month s/p rubber band procedure for hemorrhoids: Details: He had undergone rubber banding for bleeding hemorrhoids last month. He says this has helped him a lot as he has noticed his bleeding to have significant improved. He is on anticoagulation for DVTs in the past He is also on O2 supplementation because of his interstitial lung disease [facility] Medical History (Updated 03/01/25 @ 09:05 by Saurabh Serrato MD) Bleeding internal hemorrhoids Oxygen dependent Bleeding hemorrhoids Pneumonia due to COVID-19 virus Pulmonary fibrosis ILD (interstitial lung disease) Bronchomalacia Sarcoidosis Pulmonary nodules Obesity (BMI 30.0-34.9) LFT elevation Hyperkalemia Glaucoma BPH (benign prostatic hyperplasia) Vitamin D deficiency Hypercholesterolemia Protein S deficiency DVT (deep venous thrombosis) Thrombocytopenia Surgical History History of bronchoscopy History of right inguinal hernia repair Hx of lymph node biopsy Hx of colonoscopy History of umbilical hernia repair History of appendectomy History of sinus surgery Family History Mother No problems noted. Father Medical history unknown Daughter In good health Sister In good health Brother Lung cancer Social History Household Members: Significant Other Housing: House Are you a primary child care giver to a significant other at home: No Do you presently have visiting nurse or other home services: Yes (medical supply for O2) Alcohol intake: current Alcohol intake frequency: does not drink Comment: 3x a year 2 drinks Patient Tobacco Use Status: Never used Tobacco e-Cigarette/Vaping Use: Never Used Second Hand Smoke Exposure: No service: No Current occupational status: employed Cognitive needs: No Hearing needs: No Vision needs: Yes Review of Systems Const Denies chills and Denies fever(s) Card Reports dyspnea and Reports dyspnea on exertion Resp Reports dyspnea and Reports dyspnea on exertion GI Denies abdominal pain Denies difficulty urinating Physical Exam Vital Signs: Last Vital Signs Pulse 118 H 03/01/25 08:50 BP 131/81 03/01/25 08:50 BMI result Body Mass Index 23.3 Const Other: On O2 supplementation General: comfortable and no acute distress Resp Other: On O2 supplement, mildly short of breath GI Palpation (GI): Soft to palpation, not firm and nontender Assessment & Plan Assessment & Plan (1) Bleeding internal hemorrhoids: Code(s): K64.8 - Other hemorrhoids Category: Medical Plan: He says that rubber banding has helped him a lot. He says his bleeding has improved significantly. He is happy with the outcome. I told him that in view of him being on anticoagulation, he may have recurrent hemorrhoidal bleeding down the line so he can come back for additional rubber band ligation. Coding Level of Care Code Est Pt Level 2 (25839) Diagnoses Bleeding internal hemorrhoids K64.8
[2025-03-01 08:50] VITALS: BP 131/81; PULSE 118; BMI 23.3
== END 2025-03-01 09:08 | disposition home or self-care (01) ==
LOC: HO.HGS 08:17
PROVIDERS: PCP Internal Medicine; Visit Provider Surgery
DX: K64.8 Other hemorrhoids (principal)
CPT/HCPCS: 99212

== ENCOUNTER 2025-03-15 08:17 | Outpatient (AMB) | payer OTHER, SELFPAY ==
--- OUTSIDE RECORDS SUMMARY | 2024-11-27 06:40 | XMS_ITS ---
Author Organization [facility] Address [address] [place] [address] Care Team Providers Care Avionics Electronics Technician Name Role Phone Jaz Myers MD Primary Care Provider Mason Castro [phone] REASON FOR VISIT screening colonoscopy Encounters Encounter Location Date Provider Diagnosis [facility] [place] [address] [place] [phone] 11/27/2024 Mason Rock Plan Of Treatment No Information Progress Notes * NELLY OWENS EDOB:[birth year] (59 yo M)Acc No.[id number]:11/27/2024 COLON WITH MAC Patient: NELLY BRANHAM Provider: Vinicio Rock MD :1965 A ge:59 Y S ex:Male Date:11/27/2024 Address:[address] [place], [place] [phone] Pcp:Jaz Myers MD Subjective: * Chief Complaints: [...] 0 11/27/2024 Generated for Castilloi faizan/Dipika/eTransmitting on: 05/15/2024 08:36 AM EST
--- OUTSIDE RECORDS SUMMARY | 2024-12-01 14:12 | XMS_ITS ---
Author Organization [facility] Address [address] [place] [address] Care Team Providers Care Jboss Developer Name Role Phone Jaz Myers MD Primary Care Provider Mason Castro [phone] REASON FOR VISIT ? need to treat colitis on 11/27 colon Encounters Encounter Location Date Provider Diagnosis [facility] [address] [place] [address] 12/01/2024 [place] Plan Of Treatment No Information Progress Notes * NELLY OWENS EDOB:[birth year] (59 yo M)Acc No.[id number]:12/01/2024 Patient: NELLY BRANHAM :1965 A ge:59 Y S ex:Male Address:[address] [place] [address], [address] Subjective: * Chief Complaints: * ? need to treat colitis on 11/27 colon * Medical History: * Surgical History: * Hospitalization/Major Diagno stic Procedure: * Medications: Objective: * Vitals: * Physical Examination: Assessment: Plan: * Treatment: * Procedure Codes: * * Date:
[2025-03-15 08:31] LABS: Prothrombin Time Whole Bld POC 27.6 sec (11.1-13.5); ~PT, ~INR - Anti Coag Clinic 2.3 (0.9-1.1)
--- OUTSIDE RECORDS SUMMARY | 2025-03-15 08:36 | XMS_ITS | Patient Health Record ---
Author Organization [facility] Address [address] [place] [address] Care Team Providers Care Clinical Research Monitor Name Role Phone Jaz Myers MD Primary Care Provider Mason Castro [phone] Allergies No Known Allergies Results Component Value Reference Range Notes Prothrombin Time INR Reviewed date:11/28/2024 10:12:07 AM Interpretation: Performing Lab:[facility], [address] [place] [id number] Notes/Report: Prothrombin Time 11.8 10.9-12.4 SEC INTERNATIONAL [...] (Not yet reviewed by provider) Interpretation: Performing Lab:[facility], [address] [place] [id number] Notes/Report: Reason For Referral No Information Medications [...] Status Risk Notes Problem Colon cancer screening (474279868) Colon cancer screening (Z12.11) Active confirmed Problem Rectal bleeding (76730224) Rectal bleeding (K62.5) Active confirmed Problem History of adenomatous polyp of colon (139982265) History of adenomatous polyp of colon (Z86.010) Active confirmed Problem Preprocedural examination (529330826480201) Preprocedural examination (Z01.818) Active confirmed Problem Diverticulosis of colon (037834132) Diverticulosis of colon (K57.30) Active confirmed Vital Signs Temperature 97.8 degrees Fahrenheit 09/06/2024 Blood pressure diastolic 01 mm Hg 09/06/2024 Height 64 in 09/06/2024 Blood pressure systolic 001 mm Hg 09/06/2024 Weight 136 lbs 09/06/2024 BMI 23.34 kg/m2 09/06/2024 Procedures Procedure Date Ordered Date Performed Result Body Sit e COLONOSCOPY 09/06/2024 N/A Encounters Encounter Location Date Provider Diagnosis [facility] [place] [address] [place] [id number] 11/27/2024 [place] [facility] [address] [place] [address] 09/06/2024 [place] History of adenomato us polyp of colon Z86.010 ; Preprocedural examination Z01.818 and Colon cancer screening Z12.11 [facility] [address] [place] [phone] 12/01/2024 [place] [facility] [address] [place] [phone] 09/06/2024 [place] [facility] [address] [place] [address] 11/20/2024 [place] Assessments Encounter Date Diagnosis [...] cleared for a potential lung transplant in [place]. As such I will plan to arrange this for him. He will need to stop Coumadin for 5 days prior to the procedure and obtain a prescription and instructions for Lovenox use from Dr. Calabrese. We will also need to obtain clearance and some records from both Dr. Da Silva and the lung transplant clinic at [facility]. Full consent has been obtained [...] cleared for a potential lung transplant in [place]. As such I will plan to arrange this for him. He will need to stop Coumadin for 5 days prior to the procedure and obtain a prescription and instructions for Lovenox use from Dr. Calabrese. We will also need to obtain clearance and some records from both Dr. Da Silva and the lung transplant clinic at [facility]. Full consent has been obtained [...] cleared for a potential lung transplant in [place]. As such I will plan to arrange this for him. He will need to stop Coumadin for 5 days prior to the procedure and obtain a prescription and instructions for Lovenox use from Dr. Calabrese. We will also need to obtain clearance and some records from both Dr. Da Silva and the lung transplant clinic at [facility]. Full consent has been obtained [...] Coverage Start Date Coverage End Date [facility] [address] [address] [place], [place] [id number] MAX OWENS Self - patient is the insured MEDICAID OF [facility] [address] [place] [id number] [id number] MAX OWENS Self - patient is the [...] being [place]. [place] Silva [place] [facility] [place] and the [place] center at [facility] in [place].He is currently on 2 L of nasal cannula 24 hours a day as of the August 2024 office visit. Surgical History Surgery Date(Month/Year) Hernia repair--umbilical 2017
--- OUTSIDE RECORDS SUMMARY | 2025-03-15 08:36 | XMS_ITS ---
Author Organization [facility] Address [address] [place] [address] Phone Care Team Providers Care Certified Public Accountant Name Role Phone Jaz Myers MD Primary Care Provider [phone] Radha Fox MD, S Unavailable Devyn Jay MD Unavailable [phone] Transplant Episode Lung Candidate [facility] ([place], [place]) [facility] Evaluation began on 06/19/2024 Marked as Deferred on 10/18/2024 Reason: Unable to Contact Patient Lung CoordinatorAna Da Silva RN Email: [email or web address] [email or web address] Score Value Updated Exceptions/Reas ons CPRA 0 08/03/2024 LAS Not available Care Team Name Role Phone Fax Email Ana Da Silva RN Lung Coordinator [phone] [email or web address] Giovana Self Senior Sql Server Dba [phone] [email or web address] Radha Fox MD, S Referring Physician [phone] [email or web address] Evette Reilly Shredded Filler Cutter Operator N/A N/A [email or web address] Pre-Transplant Referred: 06/14/2024 Evaluation began: 06/19/2024
--- OUTSIDE RECORDS SUMMARY | 2025-03-15 08:36 | XMS_ITS | Encounter Summary ---
Author Organization [facility] Address [address] [place] [address] Phone Care Team Providers Care Laboratory Animal Caretaker Name Role Phone Jaz Myers MD Primary Care Provider [phone] Radha Fox MD, S Unavailable Devyn Jay MD Unavailable Encounter Details Date Type Department Care Team (Late st Contact Info) Description 02/23/[address] [facility] Endoscopy Department [address] [place] [address] Social History Tobacco Use Types Packs/Day Years [...] documented as of this encounter Care Teams Laboratory Animal Caretaker Relationship Specialty Start Date End Date Jaz Myers MD [address] [place] [address] Drive [address] [place] [address] PCP - General Internal Medicine 11/16/23 Radha Fox MD, S [address] [place] [address] 3 [place] [address] Referring Physician Pulmonary Disease 06/14/24 Devyn Jay MD [address] [place] [address] 200 [place] [address] Pulmonary Disease 09/08/24 documented as of this encounter Additional Source Comments The information contained in this document represents components of the legal health record. It is not the complete legal health record.[facility]
--- OUTSIDE RECORDS SUMMARY | 2025-03-15 08:36 | XMS_ITS | Encounter Summary ---
Author Organization [facility] Address [address] [place] [address] Phone Care Team Providers Care Box Shook Patcher Name Role Phone Jaz Myers MD Primary Care Provider [phone] Radha Fox MD, S Unavailable Devyn Jay MD Unavailable [phone] Encounter Details Date Type Department Care Team (Late st Contact Info) Description 02/23/[address] [facility] Endoscopy Department [address] [place] [address] Social History Tobacco Use Types Packs/Day Years [...] documented as of this encounter Care Teams Box Shook Patcher Relationship Specialty Start Date End Date Jaz Myers MD [address] [place] [address] Drive [address] [place] [address] PCP - General Internal Medicine 11/16/23 Radha Fox MD, S [address] [place] [address] 3 [place] [address] Referring Physician Pulmonary Disease 06/14/24 Devyn Jay MD [address] [place] [address] 200 [place] [address] Pulmonary Disease 09/08/24 documented as of this encounter Additional Source Comments The information contained in this document represents components of the legal health record. It is not the complete legal health record.[facility]
--- OUTSIDE RECORDS SUMMARY | 2025-03-15 08:36 | XMS_ITS | Encounter Summary ---
Author Organization [facility] Address [address] [place] [address] Phone Care Team Providers Care Gluing Machine Offbearer Name Role Phone Jaz Myers MD Primary Care Provider [phone] Radha Fox MD, S Unavailable Devyn Jay MD Unavailable [phone] Encounter Details Date Type Department Care Team (Late st Contact Info) Description 11/17/2023 Procedure Pass [facility] Endoscopy Admitting Dept Virtual Department [address] [place] [address] Social History Tobacco Use Types Packs/Day Years [...] documented as of this encounter Care Teams Gluing Machine Offbearer Relationship Specialty Start Date End Date Jaz Myers MD [address] [place] [address] PCP - General Internal Medicine 11/16/23 Radha Fox MD, S [address] [facility] 3 [place] [address] [email or web address] Referring Physician Pulmonary Disease 06/14/24 Devyn Jay MD [address] [place] [address] 200 [place] [address] Pulmonary Disease 09/08/24 documented as of this encounter Additional Source Comments The information contained in this document represents components of the legal health record. It is not the complete legal health record.[facility]
--- NOTE | 2025-03-15 08:37 | MHC.OFFVISCO ---
Intake Intake Visit Reasons: Anticoagulation Allergies No Known Allergies (No Known Allergies*) Allergy (Verified 03/15/25 08:22) Medication List - Last Reconciled 03/15/25 by Marcia Dave RN albuterol sulfate 90 mcg/actuation 2 inhalations inhalation Q6H PRN 30 days ascorbic acid (vitamin C) 500 mg PO .QD blood pressure monitor (Blood Pressure Kit) As directed calcium citrate 1,000 mg PO DAILY cetirizine 10 mg PO DAILY PRN chlorpheniramine maleate (Allergy Relief (chlorpheniramine)) 4 mg PO Q6H PRN cholecalciferol (vitamin D3) (Vitamin D3) 100 mcg (2 x 50 mcg (2,000 unit)) PO DAILY 30 days clotrimazole 1% 1 appl topical BID 4 weeks infliximab (Remicade) 336 mg IV Q4W 12 months nintedanib (Ofev) 150 mg PO Q12H omeprazole 40 mg PO DAILY Oxygen Home Use As directed prednisolone acetate 1% (Pred Forte) 1 drp ophthalmic (eye) BEDTIME prednisone 15 mg (3 x 5 mg) PO DAILY 30 days prednisone 4 mg (4 x 1 mg) PO DAILY 30 days prednisone 10 mg PO QAM warfarin (Jantoven) 4 mg See Protocol PO BEDTIME Nursing Note INR: 2.3 in therapeutic range Medications and supplements reviewed No changes in health, diet, medications, or supplements, Denies any signs and symptoms of bleeding or bruising or clotting. Bleeding, bruising, clotting discussed Nutritional guidance given Dose: 2mg x 2 days/ 4mg x 5 days F/U INR: 2mg x 2 days/ 4mg x 5 days Patient verbalizes understanding of instructions given Anti-Coag Initial Assessment Social Hx Patient Tobacco Use Status: Never used Tobacco alcohol intake: current Alcohol intake frequency: does not drink Coding Level of Care Code Est Patient Level 1 Diagnoses Current use of anticoagulant therapy Z79.01 Results AMB INR Fingerstick AMB INR Fingerstick 2.3 Last Edit by Marcia Dave RN on 03/15/25 08:34 manual entry Assessment & Plan Assessment & Plan (1) Current use of anticoagulant therapy: Code(s): Z79.01 - FPC (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
--- OUTSIDE RECORDS SUMMARY | 2025-03-15 08:37 | XMS_ITS | Clinical Summary ---
Author Organization [facility] Address [address] [place] [address] Phone Care Team Providers Care Licensed Clinical Psychologist Name Role Phone Jaz Myers MD Primary Care Provider Radha Fox MD, S Unavailable Devyn Jay MD Unavailable [phone] Allergies No known active allergies Medications warfarin [...] bronch washings have tested positive for covid. Hotel Houseman saw ? Lesion on right vocal cord. [...] management of sarcoidosis (followed by pulmonology in [place]). Patient had been using supplemental oxygen increasingly, [...] dose until advised further by patient's primary vegetable canner -Goal SpO2 with supplemental oxygen > 90% and < 96% -Outpatient follow-up with vegetable canner in [place] Resolved Problems Problem Noted Date Diagnosed Date [...] Department Care Team Description 02/23/2025 Procedure Pass [facility] Endoscopy Department [address] [place] [address] 02/23/2025 Hospital Encounter [facility] Endoscopy Department [address] [place] [address] 02/16/2025 Refill [facility] [address] [place] [address] Matilda Mukherjee MD Medication Refill from Last [...] , 02/18/2021, 02/15/2018 COVID-19 VACCINE (3 - 2024- season) 2025 08/21/2020, 07/30/2020 DEPRESSION SCREENING 05/19/2025 05/19/2024 LIPID PANEL 08/03/2029 08/03/2024 RSV VACCINE (1 - 1-dose 75+ series) 2041 SMOKING STATUS SCREENING (Once After 26 Yrs) Completed 05/19/2024 HEPATITIS C SCREENING Completed 08/03/2024 , 08/03/2024, 08/03/2024, Additional history exists HIV ONE-TIME SCREENING (18-65 YEARS) Completed 08/03/2024 HIB VACCINES Aged Out [...] (08/03/2024 1:38 PM EDT) HCV Nonreactive Nonreactive [facility] 08/03/2024 1:38 PM EDT 08/03/2024 2:00 PM EDT Melinda Epps MD LAB BLOOD BKR ORDERABLES Final R esult Performing Organization Address City/[facility] Co de Phone Number [facility] [address] [place] [address] * (ABNORMAL) Lipid panel (08/03/2024 1:38 PM EDT) CHOLESTEROL 253(H) <200 mg/dL [facility] TRIGLYCERIDES 255(H) 35 - 150 mg/dL [facility] HDL 100(H) 40 - 80 mg/dL [facility] CALCULATED LDL 102 50 - 129 mg/dL [facility] VLDL 51(H) <31 mg/dL [facility] CARDIAC RISK RATIO 2.5 0.0 - 4.0 [facility] 08/03/2024 1:38 PM EDT 08/03/2024 2:00 PM EDT Melinda Epps MD LAB BLOOD BKR ORDERABLES Final R esult Performing Organization Address [facility] Co de Phone Number [facility] [address] [place] [phone] from Last 3 Months or Most Recently Relevant to Health Maintenance Insurance [facility] Advance Directives For more information, please contact: [phone] (9AM - 5PM Karla/[facility], Wednesday-Wednesday) Documents on File Type Date Recorded 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 11/22/2023 5:32 PM [...] Status Communicated To: Inpatient Attending Care Teams Licensed Clinical Psychologist Relationship Specialty Start Date End Date Po, Jaz Whalen MD [address] [place] [address] PCP - General Internal Medicine 11/16/23 Radha Fox MD, [facility] [address] [place] [address] 3 [place] [address] Referring Physician Pulmonary Disease 06/14/24 Devyn Jay MD [address] [place] [id number] Pulmonary Disease 09/08/24 Additional Source Comments The information contained in this document represents components of the legal health record. It is not the complete legal health record.[facility]
--- OUTSIDE RECORDS SUMMARY | 2025-03-15 08:37 | XMS_ITS | Encounter Summary ---
Author Organization [facility] Address [address] [place] [address] Phone Care Team Providers Care Tonal Regulator Name Role Phone Jaz Myers MD Primary Care Provider [phone] Radha Fox MD, S Unavailable Devyn Jay MD Unavailable [phone] Encounter Details Date Type Department Care Team (Late st Contact Info) Description 05/19/2024 Procedure Pass [facility] 75 [place] [address] Social History Tobacco Use Types Packs/Day Years [...] documented as of this encounter Care Teams Tonal Regulator Relationship Specialty Start Date End Date Jaz Myers MD [address] [place] [address] Drive [address] [place] [address] PCP - General Internal Medicine 11/16/23 Radha Fox MD, S [address] [place] [address] 3 [place] [address] [email or web address] Referring Physician Pulmonary Disease 06/14/24 Devyn Jay MD [address] [place] [address] 200 [place] [address] Pulmonary Disease 09/08/24 documented as of this encounter Additional Source Comments The information contained in this document represents components of the legal health record. It is not the complete legal health record.[facility]
--- OUTSIDE RECORDS SUMMARY | 2025-03-15 08:37 | XMS_ITS | Encounter Summary ---
Author Organization [facility] Address [address] [place] [address] Phone Care Team Providers Care Local Area Network Systems Adminstrator Name Role Phone Jaz Myers MD Primary Care Provider [phone] Radha Fox MD, S Unavailable Devyn Jay MD Unavailable [phone] Encounter Details Date Type Department Care Team (Late st Contact Info) Description 05/24/2024 Transcribe Orders [facility] EKG [address] [place] [address] Jaz Myers MD [address] [place] [address] Social History Tobacco Use Types [...] documented as of this encounter Care Teams Local Area Network Systems Adminstrator Relationship Specialty Start Date End Date Po, Jaz Whalen MD [address] [place] [address] Drive [address] [place] [address] PCP - General Internal Medicine 11/16/23 Radha Fox MD, [facility] [address] [place] [address] 3 [place] [address] [email or web address] Referring Physician Pulmonary Disease 06/14/24 Devyn Jay MD [address] [place] [address] 200 [place] [address] Pulmonary Disease 09/08/24 documented as of this encounter Additional Source Comments The information contained in this document represents components of the legal health record. It is not the complete legal health record.[facility]
--- OUTSIDE RECORDS SUMMARY | 2025-03-15 08:37 | XMS_ITS | Encounter Summary ---
Author Organization [facility] Address [address] [facility] [facility] [address] [place] [address] Phone Care Team Providers Care Chiropractic Teacher Name Role Phone Jaz Myers MD Primary Care Provider [phone] Radha Fox MD, S Unavailable Devyn Jay MD Unavailable [phone] Encounter Details Date Type Department Care Team (Late st Contact Info) Description 05/19/2024 Procedure Pass [facility] Echocardiography 70 [place] [address] Social History Tobacco Use Types Packs/Day Years [...] documented as of this encounter Care Teams Chiropractic Teacher Relationship Specialty Start Date End Date Jaz Myers MD [address] [place] [address] [address] [place] [address] PCP - General Internal Medicine 11/16/23 Radha Fox MD, S [address] [place] [address] 3 [place] [address] Referring Physician Pulmonary Disease 06/14/24 Devyn Jay MD [address] [place] [address] 200 [place] [address] Pulmonary Disease 09/08/24 documented as of this encounter Additional Source Comments The information contained in this document represents components of the legal health record. It is not the complete legal health record.[facility]
--- OUTSIDE RECORDS SUMMARY | 2025-03-15 08:37 | XMS_ITS | Encounter Summary ---
Author Organization [facility] Address [address] [facility] [address] [place] [address] Phone Care Team Providers Care Channel Specialist Name Role Phone Jaz Myers MD Primary Care Provider [phone] Radha Fox MD, S Unavailable Devyn Jay MD Unavailable [phone] Encounter Details Date Type Department Care Team (Late st Contact Info) Description 11/16/2023 Procedure Pass [facility], Ct Scan - [address] [address] Social History Tobacco Use Types Packs/Day Years [...] 5:07 PM EDT Nany Warren RN * [place] Suicide Severity Rating Scale (Screener/Recent Self-Report) Question [...] documented as of this encounter Care Teams Channel Specialist Relationship Specialty Start Date End Date Jaz Myers MD [address] [place] [address] Drive [address] [place] [phone] PCP - General Internal Medicine 11/16/23 Radha Fox MD, S [address] [place] [address] [email or web address] Referring Physician Pulmonary Disease 06/14/24 Devyn Jay MD [address] [address] Pulmonary Disease 09/08/24 documented as of this encounter Additional Source Comments The information contained in this document represents components of the legal health record. It is not the complete legal health record.[facility]
--- OUTSIDE RECORDS SUMMARY | 2025-03-15 08:37 | XMS_ITS | Encounter Summary ---
Author Organization [facility] Address [address] [place] [address] Phone Care Team Providers Care Deflector Operator Name Role Phone Jaz Myers MD Primary Care Provider [phone] Radha Fox MD, S Unavailable Devyn Jay MD Unavailable [phone] Reason for Referral * MRI/CAT Scan - Closed Specialty Diagnoses / Procedures Referred By Contac t Referred To Contact Radiology Diagnoses Interstitial lung disease Procedures NC PET/CT Cardiac Sarcoid PET/SPECT NC SPECT MYOCARDIAL VIABILITY CHG MYOCRD IMG PET METAB EVAL SINGLE STUDY CNCRNT CT CHG MYOCARDIAL SPECT SINGLE STUDY AT REST OR STRESS Radha Fox MD, S [address] [address] Phone: tel: fax: [email or web address] Referral ID Status Reason Start Date Expiration Date Visits Re quested Visits Authorized [id number] Closed 06/21/2024 08/29/2024 1 1 Encounter Details Date Type Department Care Team (Latest Contact Info) Description 06/16/2024 Ancillary Orders [facility] Lung Center-Pulmonary Medicine [address] [place] [address] Radha Fox MD, S [address] [place] [address] [email or web address] Interstitial lung disease (Primary Dx) Social History [...] 06/19/2024 9:22 AM Beth Anderson RN * [place] Suicide Severity Rating Scale (Screener/Recent Self-Report) Question Answer Date of Assessment Author 1. Wish to be (Past 1 Month) No 06/19/2024 9:22 AM Beth Fernando RN 2. Non-Specific Active Suicidal Thoughts (Past 1 Month) No 06/19/2024 9:22 AM Beth Fernando RN 6. Suicidal Behavior (Lifetime) No 06/19/2024 9:22 AM GUILLERMO SkamokawaBeth nelson VISHAL orozco documented as of this [...] documented as of this encounter Care Teams Deflector Operator Relationship Specialty Start Date End Date Jaz Myers MD [address] [place] [address] PCP - General Internal Medicine 11/16/23 Radha Fox MD, S [address] [place] [address] [email or web address] Referring Physician Pulmonary Disease 06/14/24 Devyn Jay MD [address] [place] [address] Pulmonary Disease 09/08/24 documented as of this encounter Additional Source Comments The information contained in this document represents components of the legal health record. It is not the complete legal health record.[facility]
== END 2025-03-15 08:39 | disposition home or self-care (01) ==
LOC: HO.ACS 08:17
PROVIDERS: PCP Internal Medicine; Visit Provider Internal Medicine Medical Oncology
DX: Z79.01 Long term (current) use of anticoagulants (principal)

== ENCOUNTER → 2025-03-15 08:17 | Outpatient (BNVA) | payer OTHER, SELFPAY | PROVIDERS: PCP Internal Medicine; Visit Provider Internal Medicine Medical Oncology | DX: Z79.01 Long term (current) use of anticoagulants (principal) | CPT/HCPCS: 85610; 99211 ==

== ENCOUNTER → 2025-03-22 07:44 | Outpatient (REF) | payer OTHER, SELFPAY ==
--- OUTSIDE RECORDS SUMMARY | 2024-11-27 06:40 | XMS_ITS ---
Author Organization [facility] Address [address] [place] [address] Care Team Providers Care Rn Mds Name Role Phone Jaz Myers MD Primary Care Provider Mason Castro [phone] REASON FOR VISIT screening colonoscopy Encounters Encounter Location Date Provider Diagnosis [facility] Outpatient [address] [place] [phone] 11/27/2024 Mason Rock Plan Of Treatment No Information Progress Notes * NELLY OWENS EDOB:[birth year] (59 yo M)Acc No.[id number]:11/27/2024 COLON WITH MAC Patient: NELLY BRANHAM Provider: Vinicio Rock MD :1965 A ge:59 Y S ex:Male Date:11/27/2024 Address:[address] [place], [place] [phone] Pcp:Jaz Myers MD Subjective: * Chief Complaints: * 1 . Screening colonoscopy. * Medical History: Objective: * Vitals: Assessment: Plan: * Treatment: * * The named appointment provid er may or may not be the originator of this progress note, and it is not deemed complete until electronically signed by the appointment provider. Sign off status: Pending * Provider: Vinicio Rock MD Date: 0 11/27/2024 Generated for Castilloi faizan/Dipika/eTransmitting on: 05/22/2024 07:46 AM EST
--- OUTSIDE RECORDS SUMMARY | 2024-12-01 14:12 | XMS_ITS ---
Author Organization [facility] Address [address] [place] [address] Care Team Providers Care Offal Trimmer Name Role Phone Jaz Myers MD Primary Care Provider Mason Castro [phone] REASON FOR VISIT ? need to treat colitis on 11/27 colon Encounters Encounter Location Date Provider Diagnosis [facility] [address] [place] [address] 12/01/2024 [place] Plan Of Treatment No Information Progress Notes * NELLY OWENS EDOB:[birth year] (59 yo M)Acc No.[id number]:12/01/2024 Patient: NELLY BRANHAM :1965 A ge:59 Y S ex:Male Address:[address] [place] [address], [address] Subjective: * Chief Complaints: * ? need to treat colitis on 11/27 colon * Medical History: * Surgical History: * Hospitalization/Major Diagno stic Procedure: * Medications: Objective: * Vitals: * Physical Examination: Assessment: Plan: * Treatment: * Procedure Codes: * * Date:
--- NOTE | 2025-03-22 07:46 | CA_ITS ---
Transthoracic Echocardiogram Patient (Last, First, Middle): Max Daniels E Gender: M Date of : 1965 Age: 59 Procedure Date: 03/22/2025 Procedure Type: Transthoracic Echocardiogram Location: OP Height: 162.56 cm Weight: 61.24 kg BSA: 1.66 m2 Heart Rate: bpm BP: 140 / 84 mmHg Principal Network Architect: TO Referring MD: Chaparro Da Silva MD Child & Adolescent Psychiatrist: Samir Pacheco MD Symptoms: I27.20 - Pulmonary hypertension, unspecified Study Quality: Adequate w contrast ECG Rhythm: Sinus Conclusions: - 1. Low normal LV ejection fraction 50-55% with grade 1 diastolic dysfunction 2. Normal cardiac valvular Dopplers 3. Moderately elevated right ventricular systolic pressure with mildly elevated right atrial pressures 4. No gross pericardial effusion Findings Procedure Information Contrast agent, definity, is being given per protocol without apparent complications. Left Ventricle Normal left ventricular cavity size. The left ventricular systolic function is low normal. The visually estimated ejection fraction is between 50-55%. Spectral Doppler is indicative of an impaired relaxation filling pattern. E/E prime ratio is <8, consistent with normal filling pressures. Right Ventricle Normal right ventricular cavity size and systolic function. Atria Both atria are normal in size. There is no evidence of interatrial shunt. Aortic Valve Normal aortic valve structure and function. There is no aortic valve stenosis. There is no aortic valve regurgitation. Mitral Valve Normal mitral valve structure and function. There is trace mitral valve regurgitation. There is no mitral valve stenosis. Pulmonic Valve The pulmonic valve is likely normal. There is mild pulmonic valve regurgitation. Tricuspid Valve Normal tricuspid valve structure. There is mild tricuspid valve regurgitation. The right ventricular systolic pressure is 49 mmHg. Mildly elevated right atrial pressure. Moderate pulmonary hypertension is present. Great Vessels All visible segments of the aorta are normal in size. The pulmonary artery was not well visualized. There is no dilatation of the ascending aorta measuring 3.30 cm. Venous The inferior vena cava is normal in size and collapses less than 50% with inspiration. Pericardium/Pleural There is no evidence of pericardial effusion. Prior Study Comparison No prior study available for comparison. noted large cystic structure posterior to the right atrium come off unclear etiology. Consider chest CTA Measurements 2D Linear Measurements IVSd: 1.11 0.6-0.9/0.6-1.0 cm LVIDd: 3.79 3.9-5.3/4.2-5.9 cm LVIDd Index: 2.28 2.4-3.2/2.2-3.1 cm/m2 LVIDs: 2.34 2.0-3.6 cm LVPWd: 0.81 0.7-1.1 cm LA Diam: 3.10 2.7-3.8/3.0-4.0 cm LAIDs Index: 1.87 1.5-2.3 cm/m2 LV Mass: 137.10 67-162/88-224 g LV Mass Index: 82.59 43-95/49-115 g/m2 LVOT Diam: 2.00 3.0+(-)1.3 cm 2D Systolic Function EF 4C: 54.10 >55% EF 2C: 51.10 >55% EF BiP: 52.50 >55% Mitral Valve MV Pk E: 0.43 MV PK A: 0.60 MV Decel Time: 199.00 E/A: 0.70 E'Lateral: 5.33 E'Medial: 5.33 E/E' Med: 8.10 E/E' Lat: 8.10 PHT: 58.00 MVA PHT: 3.79 Decel Sevier: 2.18 Aortic Valve AoV Pk Benito: 1.00 AoV Mn Benito: 0.65 AoV VTI: 0.18 AoV Pk Grad: 4.00 Aov Mn Grad: 2.00 RAMO Cont.VTI: 2.22 LVOT LVOT Pk Benito: 0.75 LVOT Mn Benito: 0.47 LVOT VTI: 0.13 LVOT Pk Grad: 2.00 LVOT Mn Grad: 1.00 LVOT Diam: 2.00 LVOT Area: 3.14 Diastolic Function MV Pk E: 0.43 MV Pk A: 0.60 E/A: 0.70 E'Medial: 5.33 E/E' Med: 8.10 E' Laterial: 5.33 E/E' Lat: 8.10 Right Ventricle TAPSE (mm): 21.10 TVS' Benito: 10.30 Tricuspid Valve TR Pk Benito: 3.20 TR Pk Grad: 41.00 RA Press: 8.00 RVSP: 49.00 Great Vessels Aorta Sinus of Valsalva: 3.20 2.0-3.5 cm Ao Asc: 3.30 2.1-3.4 cm Pulmonary Valve SC Pk Benito: 2.30 Updated in Other Vendor System with Status of Final Samir Pacheco MD electronically signed on 03/22/2025 5:48:38 PM with status of Final
--- OUTSIDE RECORDS SUMMARY | 2025-03-22 07:46 | XMS_ITS | Encounter Summary ---
Author Organization [facility] Address [address] [facility] [address] [address] [place] [address] Phone Care Team Providers Care Nurse Recruiter Name Role Phone Jaz Myers MD Primary Care Provider Radha Fox MD, S Unavailable Devyn Jay MD Unavailable [phone] Encounter Details Date Type Department Care Team (Late st Contact Info) Description 02/23/2025 Hospital Encounter [facility] Endoscopy Department [address] [place] [address] Social History Tobacco Use Types Packs/Day Years [...] documented as of this encounter Care Teams Nurse Recruiter Relationship Specialty Start Date End Date Jaz Myers MD [address] [place] [address] Drive [address] [place] [address] PCP - General Internal Medicine 11/16/23 Radha Fox MD, S [address] [place] [address] 3 [place] [address] Referring Physician Pulmonary Disease 06/14/24 Devyn Jay MD [address] [place] [address] 200 [place] [address] Pulmonary Disease 09/08/24 documented as of this encounter Additional Source Comments The information contained in this document represents components of the legal health record. It is not the complete legal health record.[facility]
--- OUTSIDE RECORDS SUMMARY | 2025-03-22 07:46 | XMS_ITS | Encounter Summary ---
Author Organization [facility] Address [address] [facility] [address] [place] [address] Phone Care Team Providers Care Labeler Name Role Phone Jaz Myers MD Primary Care Provider [phone] Radha Fox MD, S Unavailable Devyn Jay MD Unavailable Encounter Details Date Type Department Care Team (Late st Contact Info) Description 02/23/2025 Procedure Pass [facility] Endoscopy Department [address] [place] [address] Social History Tobacco Use Types Packs/Day Years [...] documented as of this encounter Care Teams Labeler Relationship Specialty Start Date End Date Jaz Myers MD [address] [place] [address] Drive [address] [place] [address] PCP - General Internal Medicine 11/16/23 Radha Fox MD, S [address] [place] [address] 3 [place] [address] Referring Physician Pulmonary Disease 06/14/24 Devyn Jay MD [address] [place] [address] 200 [place] [address] Pulmonary Disease 09/08/24 documented as of this encounter Additional Source Comments The information contained in this document represents components of the legal health record. It is not the complete legal health record.[facility]
--- OUTSIDE RECORDS SUMMARY | 2025-03-22 07:46 | XMS_ITS | Patient Health Record ---
Author Organization [facility] Address [address] [place] [address] Care Team Providers Care Builder Beam Name Role Phone Jaz Myers MD Primary Care Provider Mason Castro [phone] Allergies No Known Allergies Results Component Value Reference Range Notes Prothrombin Time INR Reviewed date:11/28/2024 10:12:07 AM Interpretation: Performing Lab:[facility], [address] [place] [phone] Notes/Report: Prothrombin Time 11.8 10.9-12.4 SEC [employer] [...] (Not yet reviewed by provider) Interpretation: Performing Lab:[facility], [address] [place] [phone] Notes/Report: Reason For Referral No Information Medications [...] Status Risk Notes Problem Colon cancer screening (621733196) Colon cancer screening (Z12.11) Active confirmed Problem Rectal bleeding (11880030) Rectal bleeding (K62.5) Active confirmed Problem History of adenomatous polyp of colon (045088521) History of adenomatous polyp of colon (Z86.010) Active confirmed Problem Preprocedural examination (419641685834883) Preprocedural examination (Z01.818) Active confirmed Problem Diverticulosis of colon (152449727) Diverticulosis of colon (K57.30) Active confirmed Vital Signs Temperature 97.8 degrees Fahrenheit 09/06/2024 Blood pressure diastolic 01 mm Hg 09/06/2024 Height 64 in 09/06/2024 Blood pressure systolic 001 mm Hg 09/06/2024 Weight 136 lbs 09/06/2024 BMI 23.34 kg/m2 09/06/2024 Procedures Procedure Date Ordered Date Performed Result Body Sit e COLONOSCOPY 09/06/2024 N/A Encounters Encounter Location Date Provider Diagnosis [facility] Out[facility] [address] [place] [id number] 11/27/2024 Mason Rock [facility] [address] [place] [address] 09/06/2024 Mason Rock History of adenomato us polyp of colon Z86.010 ; Preprocedural examination Z01.818 and Colon cancer screening Z12.11 [facility] [address] [place] [address] 12/01/2024 Mason Rock [facility] [address] [place] [address] 09/06/2024 Mason Rock [facility] [address] [place] [address] 11/20/2024 Mason Rock Assessments Encounter Date Diagnosis [...] cleared for a potential lung transplant in [place]. As such I will plan to arrange this for him. He will need to stop Coumadin for 5 days prior to the procedure and obtain a prescription and instructions for Lovenox use from Dr. Calabrese. We will also need to obtain clearance and some records from both Dr. Da Silva and the lung transplant clinic at [facility]. Full consent has been obtained from [...] cleared for a potential lung transplant in [place]. As such I will plan to arrange this for him. He will need to stop Coumadin for 5 days prior to the procedure and obtain a prescription and instructions for Lovenox use from Dr. Calabrese. We will also need to obtain clearance and some records from both Dr. Da Silva and the lung transplant clinic at [facility]. Full consent has been obtained from [...] cleared for a potential lung transplant in [place]. As such I will plan to arrange this for him. He will need to stop Coumadin for 5 days prior to the procedure and obtain a prescription and instructions for Lovenox use from Dr. Calabrese. We will also need to obtain clearance and some records from both Dr. Da Silva and the lung transplant clinic at [facility]. Full consent has been obtained from [...] End Date [facility] [address] [address] [place], [place] [id number] MAX OWENS Self - patient is the insured MEDICAID OF [facility] [address] [place] [address] [id number] MAX OWENS Self - patient is the [...] being followed by Dr. Da Silva at [facility] Pulmonary Department and the lung transplant center at [facility] in [place].He is currently on 2 L of nasal cannula 24 hours a day as of the August 2024 office visit. Surgical History Surgery Date(Month/Year) Hernia repair--umbilical 2017
--- OUTSIDE RECORDS SUMMARY | 2025-03-22 07:46 | XMS_ITS | Encounter Summary ---
Author Organization [facility] Address [address] [facility] [address] [address] [place] [address] Phone Care Team Providers Care Truck Driver Salesperson Name Role Phone Jaz Myers MD Primary Care Provider [phone] Radha Fox MD, S Unavailable Devyn Jay MD Unavailable [phone] Encounter Details Date Type Department Care Team (Late st Contact Info) Description 11/17/2023 Procedure Pass [facility] Endoscopy Admitting Dept Virtual Department [address] [place] [address] Social History Tobacco Use Types Packs/Day Years [...] documented as of this encounter Care Teams Truck Driver Salesperson Relationship Specialty Start Date End Date Jaz Myers MD [address] [place] [address] PCP - General Internal Medicine 11/16/23 Radha Fox MD, S [address] [facility] 3 [place] [address] [email or web address] Referring Physician Pulmonary Disease 06/14/24 Devyn Jay MD [address] [place] [address] 200 [place] [address] Pulmonary Disease 09/08/24 documented as of this encounter Additional Source Comments The information contained in this document represents components of the legal health record. It is not the complete legal health record.[facility]
--- OUTSIDE RECORDS SUMMARY | 2025-03-22 07:46 | XMS_ITS ---
Author Organization [facility] Address [address] [facility] [address] [place] [address] Phone Care Team Providers Care Document Preparer Microfilming Name Role Phone Jaz Myers MD Primary Care Provider [phone] Radha Fox MD, S Unavailable Devyn Jay MD Unavailable [phone] Transplant Episode Lung Candidate [facility], [place]) [facility] Evaluation began on 06/19/2024 Marked as Deferred on 10/18/2024 Reason: Unable to Contact Patient Lung CoordinatorAna Da Silva RN Email: [email or web address] [email or web address] Score Value Updated Exceptions/Reas ons CPRA 0 08/03/2024 LAS Not available Care Team Name Role Phone Fax Email Ana Da Silva RN Lung Coordinator [phone] [email or web address] Giovana Self Sharepoint Analyst [phone] [email or web address] Radha Fox MD, S Referring Physician [phone] [email or web address] Evette Reilly Tutoring Manager N/A N/A [email or web address] Pre-Transplant Referred: 06/14/2024 Evaluation began: 06/19/2024
--- OUTSIDE RECORDS SUMMARY | 2025-03-22 07:47 | XMS_ITS | Encounter Summary ---
Author Organization [facility] Address [address] [facility] [address] [place] [address] Phone Care Team Providers Care Corporate Controller Name Role Phone Jaz Myers MD Primary Care Provider [phone] Radha Fox MD, S Unavailable Devyn Jay MD Unavailable [phone] Encounter Details Date Type Department Care Team (Late st Contact Info) Description 05/24/2024 Transcribe Orders [facility] EKG [address] [place] [address] Jaz Myers MD [address] [place] [address] Social History Tobacco Use Types [...] documented as of this encounter Care Teams Corporate Controller Relationship Specialty Start Date End Date Po, Jaz Whalen MD [address] [place] [address] Drive [address] [place] [address] PCP - General Internal Medicine 11/16/23 Radha Fox MD, [facility] [address] [place] [address] 3 [place] [address] [email or web address] Referring Physician Pulmonary Disease 06/14/24 Devyn Jay MD [address] [place] [address] 200 [place] [address] Pulmonary Disease 09/08/24 documented as of this encounter Additional Source Comments The information contained in this document represents components of the legal health record. It is not the complete legal health record.[facility]
--- OUTSIDE RECORDS SUMMARY | 2025-03-22 07:47 | XMS_ITS | Encounter Summary ---
Author Organization [facility] Address [address] [facility] [address] [place] [address] Phone Care Team Providers Care Deckhand Crab Boat Name Role Phone Jaz Myers MD Primary Care Provider [phone] Radha Fox MD, S Unavailable Devyn Jay MD Unavailable [phone] Encounter Details Date Type Department Care Team (Late st Contact Info) Description 11/16/2023 Procedure Pass [facility], Ct Scan - [address] [address] Social History Tobacco Use Types Packs/Day Years [...] 5:07 PM EDT Nany Warren RN * [place] Suicide Severity Rating Scale (Screener/Recent Self-Report) Question [...] documented as of this encounter Care Teams Deckhand Crab Boat Relationship Specialty Start Date End Date Jaz Myers MD [address] [place] [address] Drive [address] [place] [address] PCP - General Internal Medicine 11/16/23 Radha oFx MD, S [address] [place] [id number] [email or web address] Referring Physician Pulmonary Disease 06/14/24 Devyn Jay MD [address] [address] Pulmonary Disease 09/08/24 documented as of this encounter Additional Source Comments The information contained in this document represents components of the legal health record. It is not the complete legal health record.[facility]
--- OUTSIDE RECORDS SUMMARY | 2025-03-22 07:47 | XMS_ITS | Encounter Summary ---
Author Organization [facility] Address [address] [facility] [place] [address] Phone Care Team Providers Care Tax Accounting Assistant Name Role Phone Jaz Myers MD Primary Care Provider [phone] Radha Fox MD, S Unavailable Devyn Jay MD Unavailable [phone] Encounter Details Date Type Department Care Team (Late st Contact Info) Description 05/19/2024 Procedure Pass [facility] Echocardiography [address] [place] [address] Social History Tobacco Use Types Packs/Day Years [...] documented as of this encounter Care Teams Tax Accounting Assistant Relationship Specialty Start Date End Date Jaz Myers MD [address] [place] [address] [address] [place] [address] PCP - General Internal Medicine 11/16/23 Radha Fox MD, S [address] [place] [address] 3 [place] [address] Referring Physician Pulmonary Disease 06/14/24 Devyn Jay MD [address] [place] [address] 200 [place] [address] Pulmonary Disease 09/08/24 documented as of this encounter Additional Source Comments The information contained in this document represents components of the legal health record. It is not the complete legal health record.[facility]
--- OUTSIDE RECORDS SUMMARY | 2025-03-22 07:47 | XMS_ITS | Encounter Summary ---
Author Organization [facility] Address [address] [facility] [address] [place] [address] Phone Care Team Providers Care Group Work Program Aide Name Role Phone Jaz Myers MD Primary Care Provider [phone] Radha Fox MD, S Unavailable Devyn Jay MD Unavailable [phone] Reason for Referral * MRI/CAT Scan - Closed Specialty Diagnoses / Procedures Referred By Contac t Referred To Contact Radiology Diagnoses Interstitial lung disease Procedures NC PET/CT Cardiac Sarcoid PET/SPECT NC SPECT MYOCARDIAL VIABILITY CHG MYOCRD IMG PET METAB EVAL SINGLE STUDY CNCRNT CT CHG MYOCARDIAL SPECT SINGLE STUDY AT REST OR STRESS Radha Fox MD, S [address] [address] Phone: tel: fax: [email or web address] Referral ID Status Reason Start Date Expiration Date Visits Re quested Visits Authorized [id number] Closed 06/21/2024 08/29/2024 1 1 Encounter Details Date Type Department Care Team (Latest Contact Info) Description 06/16/2024 Ancillary Orders [facility] Lung Center-Pulmonary Medicine [address] [place] [address] Radha Fox MD, S [address] [place] [address] [email or web address] Interstitial lung disease (Primary Dx) Social History [...] 06/19/2024 9:22 AM Beth Anderson RN * [place] Suicide Severity Rating Scale (Screener/Recent Self-Report) Question Answer Date of Assessment Author 1. Wish to be (Past 1 Month) No 06/19/2024 9:22 AM Beth Fernando RN 2. Non-Specific Active Suicidal Thoughts (Past 1 Month) No 06/19/2024 9:22 AM Beth Fernando RN 6. Suicidal Behavior (Lifetime) No 06/19/2024 9:22 AM GUILLERMO OlmstedBeth nelson VISHAL orozco documented as of this [...] documented as of this encounter Care Teams Group Work Program Aide Relationship Specialty Start Date End Date Jaz Myers MD [address] [facility] [facility] [address] [place] [address] PCP - General Internal Medicine 11/16/23 Radha Fox MD, S [address] [place] [address] [email or web address] Referring Physician Pulmonary Disease 06/14/24 Devyn Jay MD [address] [place] [address] Pulmonary Disease 09/08/24 documented as of this encounter Additional Source Comments The information contained in this document represents components of the legal health record. It is not the complete legal health record.[facility]
--- OUTSIDE RECORDS SUMMARY | 2025-03-22 07:47 | XMS_ITS | Encounter Summary ---
Author Organization [facility] Address [address] [facility] [address] [place] [address] Phone Care Team Providers Care Cable Stretcher And Tester Name Role Phone Jaz Myers MD Primary Care Provider Radha Fox MD, S Unavailable Devyn Jay MD Unavailable [phone] Encounter Details Date Type Department Care Team (Late st Contact Info) Description 05/19/[address] [facility] [address] [place] [address] Social History Tobacco Use Types Packs/Day Years [...] documented as of this encounter Care Teams Cable Stretcher And Tester Relationship Specialty Start Date End Date Jaz Myers MD [address] [place] [address] Drive [address] [place] [address] PCP - General Internal Medicine 11/16/23 Radha Fox MD, S [address] [place] [address] 3 [place] [address] [email or web address] Referring Physician Pulmonary Disease 06/14/24 Devyn Jay MD [address] [place] [address] 200 [place] [address] Pulmonary Disease 09/08/24 documented as of this encounter Additional Source Comments The information contained in this document represents components of the legal health record. It is not the complete legal health record.[facility]
--- OUTSIDE RECORDS SUMMARY | 2025-03-22 07:47 | XMS_ITS | Clinical Summary ---
Author Organization [facility] Address [address] [facility] [address] [place] [address] Phone Care Team Providers Care Home Health Clinical Liaison Name Role Phone Jaz Myers MD Primary Care Provider [phone] Radha Fox MD, S Unavailable Devyn Jay MD Unavailable [phone] Allergies No known active allergies Medications warfarin [...] bronch washings have tested positive for covid. Director Global Market Research saw ? Lesion on right vocal cord. [...] management of sarcoidosis (followed by pulmonology in [place]). Patient had been using supplemental oxygen increasingly, [...] dose until advised further by patient's primary network control supervisor -Goal SpO2 with supplemental oxygen > 90% and < 96% -Outpatient follow-up with network control supervisor in [place] Resolved Problems Problem Noted Date Diagnosed Date [...] Department Care Team Description 02/23/2025 Procedure Pass [facility] Endoscopy Department [address] [place] [address] 02/23/2025 Hospital Encounter [facility] Endoscopy Department [address] [place] [address] 02/16/2025 Refill [facility] [address] [place] [address] Matilda Mukherjee MD Medication Refill from Last [...] on patient's age to complete this topic IPV VACCINES Aged Out No longer eligi ble [...] (08/03/2024 1:38 PM EDT) HCV Nonreactive Nonreactive [facility] 08/03/2024 1:38 PM EDT 08/03/2024 2:00 PM EDT Melinda Epps MD LAB BLOOD BKR ORDERABLES Final R esult Performing Organization Address [facility]/ZIP Co de Phone Number [facility] [address] [place] [phone] * (ABNORMAL) Lipid panel (08/03/2024 1:38 PM EDT) CHOLESTEROL 253(H) <200 mg/dL [facility] TRIGLYCERIDES 255(H) 35 - 150 mg/dL [facility] HDL 100(H) 40 - 80 mg/dL [facility] CALCULATED LDL 102 50 - 129 mg/dL [facility] VLDL 51(H) <31 mg/dL [facility] CLIN[facility] AL [facility]ATORIES CARDIAC RISK RATIO 2.5 0.0 - 4.0 [facility] 08/03/2024 1:38 PM EDT 08/03/2024 2:00 PM EDT Melinda Epps MD LAB BLOOD BKR ORDERABLES Final R esult Performing Organization Address City/[facility] Co de Phone Number [facility] [address] [place] [phone] from Last 3 Months or Most Recently Relevant to Health Maintenance [place] [address] [place] [address] [place] [address] [place] [address] [place] [place] [address] [place] [employer] [facility] [facility] [employer] [facility] [employer] [facility] [facility]CO [employer] [facility] ACO Advance Directives For more information, please contact: [phone] (9AM - 5PM [facility], Wednesday-Wednesday) Documents on File Type Date Recorded Patient Violin Repairer Expl anation Healthcare Proxy 11/22/2023 5:32 PM [...] Status Communicated To: Inpatient Attending Care Teams Home Health Clinical Liaison Relationship Specialty Start Date End Date Po, Jaz Whalen MD [address] [place] [address] PCP - General Internal Medicine 11/16/23 Radha Fox MD, [facility] [address] [place] [address] Referring Physician Pulmonary Disease 06/14/24 Devyn [place] MD [address] [place] [address] [address] [place] [address] Pulmonary Disease 09/08/24 Additional Source Comments The information contained in this document represents components of the legal health record. It is not the complete legal health record.[facility]
== END ==
LOC: HO.CARD 07:44
PROVIDERS: PCP Internal Medicine; Visit Provider Hospitalist
DX: I27.20 Pulmonary hypertension, unspecified (principal)
CPT/HCPCS: 93306; Q9957

== ENCOUNTER → 2025-03-22 07:46 | Outpatient (BNV) | payer OTHER, SELFPAY | PROVIDERS: PCP Internal Medicine; Visit Provider Internal Medicine Cardiovascular Disease | DX: I27.20 Pulmonary hypertension, unspecified (principal) | CPT/HCPCS: 93306 ==

== ENCOUNTER 2025-04-03 08:02 | Outpatient (AMB) | payer OTHER, SELFPAY ==
--- OUTSIDE RECORDS SUMMARY | 2025-04-03 08:14 | XMS_ITS | Encounter Summary ---
Author Organization [facility] Address [address] [facility] [address] [place] [address] Phone Care Team Providers Care Credit Analysis Manager Name Role Phone Jaz Myers MD Primary Care Provider [phone] Radha Fox MD, S Unavailable Devyn Jay MD Unavailable [phone] Encounter Details Date Type Department Care Team (Late st Contact Info) Description 11/17/2023 Procedure Pass [facility] Endoscopy Admitting Dept Virtual Department [address] [place] [address] Social History Tobacco Use Types Packs/Day Years [...] documented as of this encounter Care Teams Credit Analysis Manager Relationship Specialty Start Date End Date Jaz Myers MD [address] [place] [address] PCP - General Internal Medicine 11/16/23 Radha Fox MD, S 75 [facility] 3 [place] [address] [email or web address] Referring Physician Pulmonary Disease 06/14/24 Devyn [place] MD [address] [place] [address] 200 [place] [address] Pulmonary Disease 09/08/24 documented as of this encounter Additional Source Comments The information contained in this document represents components of the legal health record. It is not the complete legal health record.[facility]
--- OUTSIDE RECORDS SUMMARY | 2025-04-03 08:14 | XMS_ITS | Encounter Summary ---
Author Organization [facility] Address [address] [facility] [address] [place] [address] Phone Care Team Providers Care Front Desk Receptionist Name Role Phone Jaz Myers MD Primary Care Provider [phone] Radha Fox MD, S Unavailable Devyn Jay MD Unavailable [phone] Encounter Details Date Type Department Care Team (Late st Contact Info) Description 02/23/[address] [facility] Endoscopy Department [address] [place] [address] Social History Tobacco Use Types Packs/Day Years [...] documented as of this encounter Care Teams Front Desk Receptionist Relationship Specialty Start Date End Date Jaz Myers MD [address] [place] [address] Drive [address] [place] [address] PCP - General Internal Medicine 11/16/23 Radha Fox MD, S [address] [place] [address] 3 [place] [address] Referring Physician Pulmonary Disease 06/14/24 Devyn [place] MD [address] [place] [address] 200 [place] [address] Pulmonary Disease 09/08/24 documented as of this encounter Additional Source Comments The information contained in this document represents components of the legal health record. It is not the complete legal health record.[facility]
--- OUTSIDE RECORDS SUMMARY | 2025-04-03 08:15 | XMS_ITS | Clinical Summary ---
Author Organization [facility] Address [address] [facility] [address] [place] [address] Phone Care Team Providers Care Knife Edger Name Role Phone Jaz Myers MD Primary Care Provider [phone] Radha Fox MD, S Unavailable Devyn Jay MD Unavailable [phone] Allergies No known active allergies Medications warfarin [...] bronch washings have tested positive for covid. Wheel Shop Supervisor saw ? Lesion on right vocal cord. [...] management of sarcoidosis (followed by pulmonology in [place]). Patient had been using supplemental oxygen increasingly, [...] dose until advised further by patient's primary training personnel supervisor -Goal SpO2 with supplemental oxygen > 90% and < 96% -Outpatient follow-up with training personnel supervisor in [place] Resolved Problems Problem Noted Date Diagnosed Date [...] Department Care Team Description 02/23/2025 Procedure Pass [facility] Endoscopy Department [address] [place] [address] 02/23/2025 Hospital Encounter [facility] Endoscopy Department [address] [place] [address] 02/16/2025 Refill [facility] [address] [place] [address] Matilda Mukherjee MD Medication Refill from Last [...] Procedure Name Priority Date/Time Associated Diagnosis Comments LIPID PANEL Routine 08/03/2024 1:38 PM EDT Encounter for pre-transplant evaluation for lung transplant HEPATITIS C ANTIBODY, QUALITATIVE Routine 08/03/2024 1:38 PM EDT Need for hepatitis C screening test from Last 3 Months or Most Recently Relevant to Health Maintenance Results * Hepatitis C antibody, qualitative (08/03/2024 1:38 PM EDT) HCV Nonreactive Nonreactive [facility] 08/03/2024 1:38 PM EDT 08/03/2024 2:00 PM EDT us Melinda Epps MD LAB BLOOD BKR ORDERABLES Final R esult [facility] [address] [place] [address] * (ABNORMAL) Lipid panel (08/03/2024 1:38 PM EDT) CHOLESTEROL 253(H) <200 mg/dL [facility] TRIGLYCERIDES 255(H) 35 - 150 mg/dL [facility] HDL 100(H) 40 - 80 mg/dL [facility] CALCULATED LDL 102 50 - 129 mg/dL [facility] VLDL 51(H) <31 mg/dL [facility] CARDIAC RISK RATIO 2.5 0.0 - 4.0 [facility] 08/03/2024 1:38 PM EDT 08/03/2024 2:00 PM EDT us Melinda Epps MD LAB BLOOD BKR ORDERABLES Final R esult [facility] [address] [place] [address] from Last 3 Months or Most Recently Relevant to Health Maintenance [place] [address] [address] [place] [address] [place] [address] [place] [address] [place] [address] ACO [facility]CO [facility] ACO Advance Directives For more information, please contact: [phone] (9AM - 5PM [facility], Wednesday-Wednesday) Documents on File Type Date Recorded Patient Biochemistry Technologist Expl anation Healthcare Proxy 11/22/2023 5:32 PM [...] Status Communicated To: Inpatient Attending Care Teams Knife Edger Relationship Specialty Start Date End Date Po, Jaz Whalen MD [address] [place] [address] PCP - General Internal Medicine 11/16/23 Radha Fox MD, S 75 [facility] 3 [place] [address] Referring Physician Pulmonary Disease 06/14/24 Devyn [place] MD [address] [facility] 200 [place] [address] Pulmonary Disease 09/08/24 Additional Source Comments The information contained in this document represents components of the legal health record. It is not the complete legal health record.[facility]
--- OUTSIDE RECORDS SUMMARY | 2025-04-03 08:15 | XMS_ITS | Encounter Summary ---
Author Organization [facility] Address [address] [facility] [address] [place] [address] Phone Care Team Providers Care Radiological Health Specialist Name Role Phone Jaz Myers MD Primary Care Provider [phone] Radha Fox MD, S Unavailable Devyn Jay MD Unavailable [phone] Reason for Referral * MRI/CAT Scan - Closed Specialty Diagnoses / Procedures Referred By Contac t Referred To Contact Radiology Diagnoses Interstitial lung disease Procedures NC PET/CT Cardiac Sarcoid PET/SPECT NC SPECT MYOCARDIAL VIABILITY CHG MYOCRD IMG PET METAB EVAL SINGLE STUDY CNCRNT CT CHG MYOCARDIAL SPECT SINGLE STUDY AT REST OR STRESS Radha Fox MD, S [address] [address] Phone: tel: fax: [email or web address] Referral ID Status Reason Start Date Expiration Date Visits Re quested Visits Authorized [id number] Closed 06/21/2024 08/29/2024 1 1 Encounter Details Date Type Department Care Team (Latest Contact Info) Description 06/16/2024 Ancillary Orders [facility] [address] [place] [address] Radha Fox MD, S 75 [place] [address] [email or web address] Interstitial lung disease (Primary Dx) Social History [...] 06/19/2024 9:22 AM Beth Anderson RN * [place] Suicide Severity Rating Scale (Screener/Recent Self-Report) Question Answer Date of Assessment Author 1. Wish to be (Past 1 Month) No 06/19/2024 9:22 AM Beth Fernando RN 2. Non-Specific Active Suicidal Thoughts (Past 1 Month) No 06/19/2024 9:22 AM Beth Fernando RN 6. Suicidal Behavior (Lifetime) No 06/19/2024 9:22 AM GUILLERMO AmiteBeth nelson VISHAL orozco documented as of this [...] documented as of this encounter Care Teams Radiological Health Specialist Relationship Specialty Start Date End Date Jaz Myers MD [address] [place] [address] PCP - General Internal Medicine 11/16/23 Radha Fox MD, S [address] [place] [address] [email or web address] Referring Physician Pulmonary Disease 06/14/24 Devyn [place] MD [address] [place] [address] Pulmonary Disease 09/08/24 documented as of this encounter Additional Source Comments The information contained in this document represents components of the legal health record. It is not the complete legal health record.[facility]
--- OUTSIDE RECORDS SUMMARY | 2025-04-03 08:15 | XMS_ITS | Encounter Summary ---
Author Organization [facility] Address [address] [facility] [address] [place] [address] Phone Care Team Providers Care Offset Pressman Name Role Phone Jaz Myers MD Primary Care Provider Radha Fox MD, S Unavailable Devyn Jay MD Unavailable [phone] Encounter Details Date Type Department Care Team (Late st Contact Info) Description 11/16/[address] [facility] Scan - [address] [address] Social History Tobacco Use Types Packs/Day Years [...] 5:07 PM EDT Nany Warren RN * [place] Suicide Severity Rating Scale (Screener/Recent Self-Report) Question [...] documented as of this encounter Care Teams Offset Pressman Relationship Specialty Start Date End Date Jaz Myers MD [address] [place] [address] Drive [address] [place] [address] PCP - General Internal Medicine 11/16/23 Radha Fox MD, S [address] [place] [address] [email or web address] Referring Physician Pulmonary Disease 06/14/24 Devyn [place] MD [address] [address] Pulmonary Disease 09/08/24 documented as of this encounter Additional Source Comments The information contained in this document represents components of the legal health record. It is not the complete legal health record.[facility]
--- OUTSIDE RECORDS SUMMARY | 2025-04-03 08:15 | XMS_ITS | Encounter Summary ---
Author Organization [facility] Address [address] [facility] [address] [place] [address] Phone Care Team Providers Care Dirt Shoveler Name Role Phone Jaz Myers MD Primary Care Provider [phone] Radha Fox MD, S Unavailable Devyn Jay MD Unavailable [phone] Encounter Details Date Type Department Care Team (Late st Contact Info) Description 05/24/2024 Transcribe Orders [facility] EKG [address] [place] [address] Jaz Myers MD [address] [place] [address] Social History Tobacco Use Types [...] documented as of this encounter Care Teams Dirt Shoveler Relationship Specialty Start Date End Date Po, Jaz Whalen MD [address] [place] [address] Drive [address] [place] [address] PCP - General Internal Medicine 11/16/23 Radha Fox MD, [facility] [address] [place] [address] 3 [place] [address] [email or web address] Referring Physician Pulmonary Disease 06/14/24 Devyn [place] MD [address] [place] [address] 200 [place] [address] Pulmonary Disease 09/08/24 documented as of this encounter Additional Source Comments The information contained in this document represents components of the legal health record. It is not the complete legal health record.[facility]
--- OUTSIDE RECORDS SUMMARY | 2025-04-03 08:15 | XMS_ITS | Encounter Summary ---
Author Organization [facility] Address [address] [facility] [address] [place] [address] Phone Care Team Providers Care Pierogi Maker Name Role Phone Jaz Myers MD Primary Care Provider [phone] Radha Fox MD, S Unavailable Devyn Jay MD Unavailable Encounter Details Date Type Department Care Team (Late st Contact Info) Description 05/19/2024 Procedure Pass [facility] Echocardiography [address] [place] [address] Social History Tobacco Use Types Packs/Day Years [...] documented as of this encounter Care Teams Pierogi Maker Relationship Specialty Start Date End Date Jaz Myers MD [address] [place] [address] [address] [place] [address] PCP - General Internal Medicine 11/16/23 Radha Fox MD, S [address] [place] [address] 3 [place] [address] Referring Physician Pulmonary Disease 06/14/24 Devyn [place] MD [address] [place] [address] 200 [place] [address] Pulmonary Disease 09/08/24 documented as of this encounter Additional Source Comments The information contained in this document represents components of the legal health record. It is not the complete legal health record.[facility]
--- OUTSIDE RECORDS SUMMARY | 2025-04-03 08:15 | XMS_ITS ---
Author Organization [facility] Address [address] [facility] [address] [place] [address] Phone Care Team Providers Care Maid Housekeeper Name Role Phone Jaz Myers MD Primary Care Provider [phone] Radha Fox MD, S Unavailable Devyn Jay MD Unavailable [phone] Transplant Episode Lung Candidate [facility] ([place], [place]) - [facility] Evaluation began on 06/19/2024 Marked as Deferred on 10/18/2024 Reason: Unable to Contact Patient Lung CoordinatorAna Da Silva RN Email: [email or web address] Scores Score Value Updated Exceptions/Reas ons CPRA 0 08/03/2024 LAS Not available Care Team Name Role Phone Fax Email Ana Da Silva RN Lung Coordinator [phone] [email or web address] Giovana Self Car Retarder Operator [phone] [email or web address] Radha Fox MD, S Referring Physician [phone] [email or web address] Evette Reilly Meat Processor N/A N/A [email or web address] Pre-Transplant Referred: 06/14/2024 Evaluation began: 06/19/2024
--- OUTSIDE RECORDS SUMMARY | 2025-04-03 08:15 | XMS_ITS | Encounter Summary ---
Author Organization [facility] Address [address] [facility] [address] [place] [address] Phone Care Team Providers Care Cable Installation Technician Name Role Phone Jaz Myers MD Primary Care Provider [phone] Radha Fox MD, S Unavailable Devyn Jay MD Unavailable [phone] Encounter Details Date Type Department Care Team (Late st Contact Info) Description 05/19/2024 Procedure Pass [facility] [address] [place] [address] Social History Tobacco Use Types Packs/Day Years [...] as of this encounter Care Teams Cable Installation Technician Relationship Specialty Start Date End Date Jaz Myers MD [address] [place] [address] Drive [address] [place] [address] PCP - General Internal Medicine 11/16/23 Radha Fox MD, S [address] [place] [address] 3 [place] [address] [email or web address] Referring Physician Pulmonary Disease 06/14/24 Devyn [place] MD [address] [place] [address] 200 [place] [address] Pulmonary Disease 09/08/24 documented as of this encounter Additional Source Comments The information contained in this document represents components of the legal health record. It is not the complete legal health record.[facility]
--- OUTSIDE RECORDS SUMMARY | 2025-04-03 08:15 | XMS_ITS | Encounter Summary ---
Author Organization [facility] Address [address] [facility] [address] [place] [address] Phone Care Team Providers Care Freight Claim Investigator Name Role Phone Jaz Myers MD Primary Care Provider [phone] Radha Fox MD, S Unavailable Devyn [place] MD Unavailable [phone] Encounter Details Date Type Department Care Team (Late st Contact Info) Description 02/23/2025 Procedure Pass [facility] Endoscopy Department 75 [place] [address] Social History Tobacco Use Types Packs/Day Years [...] documented as of this encounter Care Teams Freight Claim Investigator Relationship Specialty Start Date End Date Jaz Myers MD [address] [place] [address] Drive [address] [place] [address] PCP - General Internal Medicine 11/16/23 Radha Fox MD, S [address] [place] [address] 3 [place] [address] Referring Physician Pulmonary Disease 06/14/24 Devyn [place] MD [address] [place] [address] 200 [place] [address] Pulmonary Disease 09/08/24 documented as of this encounter Additional Source Comments The information contained in this document represents components of the legal health record. It is not the complete legal health record.[facility]
[2025-04-03 08:18] LABS: Prothrombin Time Whole Bld POC 20.5 sec (11.1-13.5); ~PT, ~INR - Anti Coag Clinic 1.7 (0.9-1.1)
--- NOTE | 2025-04-03 08:24 | MHC.OFFVISCO ---
Intake Intake Visit Reasons: Anticoagulation Allergies No Known Allergies (No Known Allergies*) Allergy (Verified 04/03/25 08:09) Medication List - Last Reconciled 04/03/25 by Marcia Dave RN albuterol sulfate 90 mcg/actuation 2 inhalations inhalation Q6H PRN 30 days ascorbic acid (vitamin C) ER 500 mg PO DAILY blood pressure monitor (Blood Pressure Kit) As directed calcium citrate 1,000 mg PO DAILY cetirizine 10 mg PO DAILY PRN chlorpheniramine maleate (Allergy Relief (chlorpheniramine)) 4 mg PO Q6H PRN cholecalciferol (vitamin D3) (Vitamin D3) 100 mcg (2 x 50 mcg (2,000 unit)) PO DAILY 30 days clotrimazole 1% 1 appl topical BID 4 weeks infliximab (Remicade) 336 mg IV Q4W 12 months nintedanib (Ofev) 150 mg PO Q12H omeprazole 40 mg PO DAILY Oxygen Home Use As directed prednisolone acetate 1% (Pred Forte) 1 drp ophthalmic (eye) BEDTIME prednisone 10 mg PO QAM warfarin (Jantoven) 4 mg See Protocol PO BEDTIME Nursing Note INR: 1.7 in therapeutic range Medications and supplements reviewed *pt ate more while in [place] - also drinking more orange juice Denies any signs and symptoms of bleeding or bruising or clotting. Bleeding, bruising, clotting discussed Nutritional guidance given - eat orange and red fruits and vegetables to help raise the INR - avoid greens today and tomorrow Dose: booster dose today 6mg then resume 2mg x 2 days/ 4mg x 5 days F/U INR: 1 week Patient verbalizes understanding of instructions given Anti-Coag Initial Assessment Social Hx Patient Tobacco Use Status: Never used Tobacco alcohol intake: current Alcohol intake frequency: does not drink Coding Level of Care Code Est Patient Level 1 Diagnoses Current use of anticoagulant therapy Z79.01 Results AMB INR Fingerstick AMB INR Fingerstick 1.7 Last Edit by Marcia Dave RN on 04/03/25 08:17 MANUAL ENTRY Assessment & Plan Assessment & Plan (1) Current use of anticoagulant therapy: Code(s): Z79.01 - vermin exterminator (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 Medications: New nutritional supplements (Ensure) PO
== END 2025-04-03 08:27 | disposition home or self-care (01) ==
LOC: HO.ACS 08:02
PROVIDERS: PCP Internal Medicine; Visit Provider Internal Medicine Medical Oncology
DX: Z79.01 Long term (current) use of anticoagulants (principal)

== ENCOUNTER → 2025-04-03 08:02 | Outpatient (BNVA) | payer OTHER, SELFPAY | PROVIDERS: PCP Internal Medicine; Visit Provider Internal Medicine Medical Oncology | DX: I82.402 Acute embolism and thrombosis of unspecified deep veins of left lower extremity (principal); Z51.81 Encounter for therapeutic drug level monitoring; Z79.01 Long term (current) use of anticoagulants | CPT/HCPCS: 85610; 99211 ==

== ENCOUNTER 2025-04-04 13:44 | Outpatient (AMB) | payer OTHER, SELFPAY ==
[2025-04-04 13:50] VITALS: BP 142/86; PULSE 97; O2SAT 92; BMI 23.9
--- NOTE | 2025-04-04 13:50 | A.OFFPC_ITS ---
Vital Signs 04/04/25 13:50 Height 5 ft 4 in Weight 139 lb BMI 23.9 BP 142/86 H Blood Pressure Location Lt brachial Position Sitting Pulse 97 Pulse Source Pulse Oximeter Pulse Oximetry (%) 92 Oxygen Delivery Method Nasal Cannula Intake Visit Reasons: blood pressure, loss of appetitte Allergies No Known Allergies (No Known Allergies*) Allergy (Verified 04/04/25 13:51) Tobacco use date assessed: 02/13/25 Dental Screening Dental Screen Date: 02/13/25 HPI HPI Comments History of Present Illness Details History of Present Illness The patient is a 59 year old individual presenting for follow-up of multiple chronic medical problems. Last seen on February 13, 2025, the patient has a complex history including BPH, hypercholesterolemia, protein S deficiency, sarcoidosis with interstitial lung disease, impaired glucose tolerance, history of DVT, left nephrolithiasis, and tubular adenoma of the colon. Regarding the patient's pulmonary status, the patient follows with pulmonology and is on supplemental oxygen at 2 liters at rest and 4 liters with activity. The current medication regimen includes a slow taper of prednisone 20 mg, Remicade, and OFEV, and the patient is attending pulmonary rehabilitation. An echocardiogram on March 22 revealed a low normal ejection fraction of 50-55%, grade 1 diastolic dysfunction, moderately elevated left ventricular pressure, and mildly elevated right atrial pressure, with no pericardial effusion. The patient has a history of DVT and protein S deficiency, for which the patient is on long-term anticoagulation with Coumadin and is followed by hematology/oncology. The patient recently saw a surgeon on March 01 for hemorrhoids and underwent a rubber band procedure. The patient's last colonoscopy was in April 2021, which showed a tubular adenoma. Recent laboratory work from February 15 showed mild anemia with a hemoglobin of 12.9 and hematocrit of 40.7, normal platelets, elevated sodium at 145, potassium of 3.5, and normal renal function. The patient was also noted to be iron deficient. A cholesterol panel from September 2024 showed an LDL of 118, triglycerides of 218, and a mildly low B12 level. Health Maintenance - Last colonoscopy was in April 2021 for tubular adenoma of the colon. - Lipid management goals include an LDL cholesterol of less than 130 mg/dL and triglycerides of less than 150 mg/dL. Social History - The patient expressed concerns about a ttending a crowded family gathering for [employer]. Results - Echocardiogram (March 22): Showed a low-normal ejection fraction of 50-55%, grade 1 diastolic dysfunction, moderately elevated left ventricular pressure, and mildly elevated right atrial pressure with no pericardial effusion. - Laboratory Studies (February 15): Reveal ed mild anemia with a hemoglobin of 12.9 g/dL and hematocrit of 40.7%, normal platelet count, elevated sodium of 145 mEq/L, and potassium of 3.5 mEq/L. - Laboratory Studies (September 2024): Showed an LDL of 118 mg/dL, triglycerides of 218 mg/dL, and mildly low vitamin B12. - Other labs: The patient is noted to be iron deficient. [facility] Medical History (Updated 04/04/25 @ 14:12 by Jaz Myers MD) Bleeding internal hemorrhoids Oxygen dependent Bleeding hemorrhoids Pneumonia due to COVID-19 virus Pulmonary fibrosis ILD (interstitial lung disease) Bronchomalacia Sarcoidosis Pulmonary nodules Obesity (BMI 30.0-34.9) LFT elevation Hyperkalemia Glaucoma BPH (benign prostatic hyperplasia) Vitamin D deficiency Hypercholesterolemia Protein S deficiency DVT (deep venous thrombosis) Thrombocytopenia Surgical History History of bronchoscopy History of right inguinal hernia repair Hx of lymph node biopsy Hx of colonoscopy History of umbilical hernia repair History of appendectomy History of sinus surgery Family History Mother No problems noted. Father Medical history unknown Daughter In good health Sister In good health Brother Lung cancer Social History Household Members: Significant Other Housing: House Are you a primary managed care liaison to a significant other at home: No Do you presently have visiting nurse or other home services: Yes (medical supply for O2) Alcohol intake: current Alcohol intake frequency: does not drink Comment: 3x a year 2 drinks Patient Tobacco Use Status: Never used Tobacco e-Cigarette/Vaping Use: Never Used Second Hand Smoke Exposure: No service: No Current occupational status: employed Cognitive needs: No Hearing needs: No Vision needs: Yes Questionnaire Thrive Questionnaire Date Thrive assessed: 09/06/24 I am a: Patient What is your living situation today?: I have a steady place to live Within the past 12 months, did the food you bought not last and you didn't have the money to get more?: I choose not to answer this question Within the past 12 months, did you worry whether your food would run out before you got money to buy more?: I choose not to answer this question Do you have trouble paying for medicines?: I choose not to answer this question Do you have trouble getting transportation to medical appointments?: I choose not to answer this question Do you have trouble paying your heating and electricity bill?: I choose not to answer this question Do you have trouble taking care of your child, family member or friend?: I choose not to answer this question Do you have trouble with day-to-day activities such as bathing, preparing meals, shopping, managing finances, etc.?: I choose not to answer this question Are you currently unemployed and looking for a job?: I choose not to answer this question Are you interested in more education?: I choose not to answer this question Please select the resources that you would like help with: None Currently or been in a relationship where the following occur: I choose not to answer THRIVE Score: 0 SANDRA-7 AMB Questionnaire SANDRA-7 Date SANDRA - 7 assessed: 09/06/24 Source: Developed by Drs. Mason Burton, Irma Morales, Waldemar Mchugh and colleagues, with an educational dc from [employer]. Review of Systems Narrative Review of Systems - Extremities: Reports pain and a hard area on one side of a leg, which is the same leg with a prior history of DVT. - Cardiovascular: Reports checking blood pressure at home with readings around 140 systolic. Denies leg swelling. Physical exam (Primary Care) Vital Signs: Last Vital Signs Pulse 97 04/04/25 13:50 BP 142/86 H 04/04/25 13:50 Pulse Ox 92 04/04/25 13:50 Oxygen Delivery Method Nasal Cannula 04/04/25 13:50 BMI result Body Mass Index 23.9 Tobacco/Smoking Status: Tobacco use Status Tobacco use date assessed 02/13/25 04/04/25 13:54 Patient Tobacco Use Status Never used Tobacco 04/04/25 13:54 Tobacco use type Cigarette 04/04/25 13:54 e-Cigarette/Vaping Use Never Used 04/04/25 13:54 Thrive Assessment: Date of Thrive Assessment Date Thrive assessed 09/06/24 04/04/25 13:54 Currently or been in a relationship where the following occur: I choose not to answer Narrative Physical Exam - Vitals: Blood pressure is elevated at 145 systolic. - Lower Extremities: Palpable induration noted on one side of the leg. Const General: alert; No acute distress Eyes Conjunctivae: conjunctivae normal Resp Auscultation: clear to auscultation bilaterally Cardio Rate: regular rate Rhythm: regular rhythm GI Inspection: Yes normal to inspection Extrem General: Yes normal to inspection and No edema Coding Level of Care Code Est Pt Level 4 (31971) Complex visit Add On G2211 Diagnoses Blood pressure elevated without history of HTN R03.0 Hypercholesterolemia E78.00 Protein S deficiency D68.59 Bleeding hemorrhoids K64.9 Benign prostatic hyperplasia with urinary frequency N40.1; R35.0 Lower urinary tract symptom detail: urinary frequency Lower urinary tract symptom presence: symptoms present Iron deficiency anemia secondary to inadequate dietary iron intake D50.8 Iron deficiency anemia type: inadequate dietary iron intake Sarcoidosis D86.9 Hypertension I10 Left leg pain M79.605 Chronic deep vein thrombosis (DVT) of lower extremity, unspecified laterality, unspecified vein I82.509 Affected thrombotic vein of extremity: unspecified vein of extremity Chronicity: chronic DVT location: lower extremity Laterality: unspecified laterality Assessment & Plan Assessment & Plan (1) Blood pressure elevated without history of HTN: Code(s): R03.0 - Elevated blood-pressure reading, without diagnosis of hypertension Category: Medical Plan: Concern about the elevated blood pressure (2) Hypercholesterolemia: Code(s): E78.00 - Pure hypercholesterolemia, unspecified Category: Medical Plan: Avoid fried foods, chicken skin, eggs, butter margarine, pastries and meat. Be it pork or beef they have a lot of cholesterol LDL goal of less than 130 and triglyceride of less than 150 (3) Protein S deficiency: Code(s): D68.59 - Other primary thrombophilia Category: Medical Plan: Patient follows up with Hematology-Oncology on anticoagulation with Coumadin (4) Bleeding hemorrhoids: Code(s): K64.9 - Unspecified hemorrhoids Category: Medical Plan: Patient has seen a surgeon and rubber band procedure done (5) BPH (benign prostatic hyperplasia): Comment: Prostate 85 cc Code(s): N40.0 - Benign prostatic hyperplasia without lower urinary tract symptoms Category: Medical Qualifiers: Lower urinary tract symptom detail: urinary frequency Lower urinary tract symptom presence: symptoms present Qualified Code(s): N40.1 - Benign prostatic hyperplasia with lower urinary tract symptoms; R35.0 - Frequency of micturition Plan: Stable (6) Iron deficiency anemia: Code(s): D50.9 - Iron deficiency anemia, unspecified Category: Medical Qualifiers: Iron deficiency anemia type: inadequate dietary iron intake Qualified Code(s): D50.8 - Other iron deficiency anemias Plan: Patient has some mild anemia discussion about iron (7) Sarcoidosis: Comment: pulmonary-dx 2011-follows w/Dr. Da Silva ([facility] [place])-on continuous O2 2L Code(s): D86.9 - Sarcoidosis, unspecified Category: Medical Plan: Continue to follow-up with Pulmonary on prednisone taper, Remicade 0 5. Tinea on oxygen (8) Hypertension: Code(s): I10 - Essential (primary) hypertension Category: Medical (9) Left leg pain: Code(s): M79.605 - Pain in left leg Category: Medical (10) DVT (deep venous thrombosis): Comment: 2014 protein S def Code(s): I82.409 - Acute embolism and thrombosis of unspecified deep veins of unspecified lower extremity Category: Medical Qualifiers: Affected thrombotic vein of extremity: unspecified vein of extremity Chronicity: chronic DVT location: lower extremity Laterality: unspecified laterality Qualified Code(s): I82.509 - Chronic embolism and thrombosis of unspecified deep veins of unspecified lower extremity Plan Plan Patient was informed and verbally consented to the use of an ambient scribe for clinic note documentation during this visit. 1. Hypertension The patient's blood pressure is elevated, with home readings around 140 systolic and an in-office reading of 145 systolic. To address this, the patient will be started on nifedipine long-acting 30 mg once daily. This medication may also assist with the patient's pulmonary hypertension. 2. Lower Extremity Pain And Induration The patient presents with pain and a hard area in the leg that has a history of DVT. An urgent ultrasound of the leg will be ordered to evaluate this new finding. It is noted that since the patient is already on therapeutic anticoagulation with Coumadin, the management plan may not significantly change regardless of the ultrasound results. 3. Interstitial Lung Disease And Pulmonary Hypertension The patient will continue to follow up with the regional extension service specialist. Current treatment with a prednisone taper, Remicade, and OFEV will be continued, along with supplemental oxygen. 4. Chronic Anticoagulation Management The patient will continue long-term anticoagulation with Coumadin under the management of hematology/oncology. 5. Hypercholesterolemia The plan is to continue monitoring cholesterol levels with goals of an LDL less than 130 and triglycerides less than 150. 6. Anemia The patient has mild, iron-deficiency anemia. Supplementation with iron and vitamin C was discussed. Discussion Notes I reviewed the patient's recent echocardiogram results from March 22. I explained that while the heart's pumping function is in the low-normal range with an ejection fraction of 50-55%, it is not relaxing well, indicating diastolic dysfunction. I further clarified that the patient's chronic lung problems are causing the right side of the heart to work harder, leading to the observed moderately elevated right ventricular systolic pressure and mildly elevated right atrial pressure. We discussed the patient's elevated blood pressure, which was 145 systolic in the office and is reportedly around 140 at home. I expressed concern that sustained high blood pressure will further strain the heart and recommended starting a new medication, nifedipine long-acting 30 mg, explaining that it can help with both systemic hypertension and pulmonary hypertension. Regarding the new complaint of a hard, painful area in the leg, I informed the patient that I will order an urgent ultrasound to investigate. I also explained that because the patient is already on a blood thinner (Coumadin) for a history of blood clots, the results of the ultrasound might not change the current treatment plan significantly. We discussed continuing current management for all other chronic conditions with the respective specialists. Patient Instructions - Begin taking nifedipine long-acting 30 mg once a day to help lower your blood pressure. - Continue to check your blood pressure at home. - Please go for an ultrasound of your leg as soon as possible to check the new painful and hard area. - Continue all your current medications for your lung condition as prescribed by your specialist, including prednisone, Remicade, and OFEV. - Use your supplemental oxygen as directed, at 2 liters when resting and 4 liters during activity, to keep your oxygen level above 90%. - We discussed taking iron and vitamin C for your mild anemia. - Continue taking your blood thinner, Coumadin, as directed by your adult crossing guard. - You have a follow-up appointment already scheduled for next month, which you should keep. Orders: Orders US venous duplex LE LT Today I82.509 - Chronic embolism and thrombosis of unspecified deep veins of unspecified lower extremity, M79.605 - Pain in left leg Medications: New nifedipine ER 30 mg PO DAILY 30 tabs 3RF I10 - Essential (primary) hypertension
--- OUTSIDE RECORDS SUMMARY | 2025-04-04 16:51 | XMS_ITS | Clinical Summary ---
Author Organization [facility] Address [address] [place] [address] Phone Care Team Providers Care Buffet Manager Name Role Phone Jaz Myers MD Primary Care Provider [phone] Radha Fox MD, S Unavailable Devyn Jay MD Unavailable [phone] Allergies No known active allergies Medications warfarin [...] bronch washings have tested positive for covid. Sales Representative [employer] saw ? Lesion on right vocal cord. [...] management of sarcoidosis (followed by pulmonology in [place]). Patient had been using supplemental oxygen increasingly, [...] dose until advised further by patient's primary conservation coordinator -Goal SpO2 with supplemental oxygen > 90% and < 96% -Outpatient follow-up with conservation coordinator in [place] Resolved Problems Problem Noted Date Diagnosed Date [...] Department Care Team Description 02/23/2025 Procedure Pass [facility] Endoscopy Department [address] [place] [address] 02/23/2025 Hospital Encounter [facility] Endoscopy Department [address] [place] [address] 02/16/2025 Refill [facility] [address] [place] [address] Matilda Mukherjee MD Medication Refill from Last [...] (08/03/2024 1:38 PM EDT) HCV Nonreactive Nonreactive [facility] 08/03/2024 1:38 PM EDT 08/03/2024 2:00 PM EDT us Melinda Epps MD LAB BLOOD BKR ORDERABLES Final R esult [facility] [address] [place] [address] * (ABNORMAL) Lipid panel (08/03/2024 1:38 PM EDT) CHOLESTEROL 253(H) <200 mg/dL [facility] TRIGLYCERIDES 255(H) 35 - 150 mg/dL [facility] HDL 100(H) 40 - 80 mg/dL [facility] CALCULATED LDL 102 50 - 129 mg/dL [facility] VLDL 51(H) <31 mg/dL [facility] CARDIAC RISK RATIO 2.5 0.0 - 4.0 [facility] 08/03/2024 1:38 PM EDT 08/03/2024 2:00 PM EDT us Melinda Epps MD LAB BLOOD BKR ORDERABLES Final R esult [facility] [address] [place] [address] from Last 3 Months or Most Recently Relevant to Health Maintenance [place] [address] [place] [address] [place] [address] [place] [address] [place] [address] [place] [address] ACO [facility] ACO [facility] ACO Advance Directives For more information, please contact: [phone] (9AM - 5PM [facility], Wednesday-Wednesday) Documents on File Type Date Recorded Patient Laborer Cutting Tool Expl anation Healthcare Proxy 11/22/2023 5:32 PM [...] Status Communicated To: Inpatient Attending Care Teams Buffet Manager Relationship Specialty Start Date End Date Po, Jaz Whalen MD [address] [place] [address] PCP - General Internal Medicine 11/16/23 Radha Fox MD, S [address] [facility] [address] [place] [address] Referring Physician Pulmonary Disease 06/14/24 Devyn Jay MD [address] [facility] [address] [place] [address] Pulmonary Disease 09/08/24 Additional Source Comments The information contained in this document represents components of the legal health record. It is not the complete legal health record.[facility]
--- OUTSIDE RECORDS SUMMARY | 2025-04-04 16:51 | XMS_ITS | Encounter Summary ---
Author Organization [facility] Address [address] [place] [address] Phone Care Team Providers Care Supervisor Soakers Name Role Phone Jaz Myers MD Primary Care Provider [phone] Radha Fox MD, S Unavailable Devyn Jay MD Unavailable [phone] Encounter Details Date Type Department Care Team (Late st Contact Info) Description 05/24/2024 Transcribe Orders [facility] EKG [address] [place] [address] Jaz Myers MD [address] [place] [address] Social [...] as of this encounter Care Teams Supervisor Soakers Relationship Specialty Start Date End Date Po, Jaz Whalen MD [address] [place] [address] Drive [address] [place] [address] PCP - General Internal Medicine 11/16/23 Radha Fox MD, [facility] [address] [place] [address] [address] [place] [address] [email or web address] Referring Physician Pulmonary Disease 06/14/24 Devyn Jay MD [address] [place] [address] [address] [place] [address] Pulmonary Disease 09/08/24 documented as of this encounter Additional Source Comments The information contained in this document represents components of the legal health record. It is not the complete legal health record.[facility]
--- OUTSIDE RECORDS SUMMARY | 2025-04-04 16:51 | XMS_ITS ---
Author Organization [facility] Address [address] [place] [address] Phone Care Team Providers Care Adventure Education Teacher Name Role Phone Jaz Myers MD Primary Care Provider [phone] Radha Fox MD, S Unavailable Devyn Jay MD Unavailable [phone] Transplant Episode Lung Candidate [facility], [place]) [facility] Evaluation began on 06/19/2024 Marked as Deferred on 10/18/2024 Reason: Unable to Contact Patient Lung CoordinatorAna Da Silva RN Email: [email or web address] Scores Score Value Updated Exceptions/Reas ons CPRA 0 08/03/2024 LAS Not available Care Team Name Role Phone Fax Email Ana Da Silva RN Lung Coordinator [phone] [email or web address] Giovana Self Cra Officer [phone] [email or web address] Radha Fox MD, S Referring Physician [phone] [email or web address] Evette Reilly Historic Clothing And Costume Maker N/A N/A [email or web address] Events Pre-Transplant Referred: 06/14/2024 Evaluation began: 06/19/2024
--- OUTSIDE RECORDS SUMMARY | 2025-04-04 16:51 | XMS_ITS | Encounter Summary ---
Author Organization [facility] Address [address] [place] [address] Phone Care Team Providers Care Data Collector Name Role Phone Jaz Myers MD Primary Care Provider [phone] Radha Fox MD, S Unavailable Devyn Jay MD Unavailable [phone] Encounter Details Date Type Department Care Team (Late st Contact Info) Description 11/16/2023 Procedure Pass [facility], Ct Scan - [address] [address] Social History Tobacco Use Types Packs/Day Years [...] 5:07 PM EDT Nany Warren RN * [place] Suicide Severity Rating Scale (Screener/Recent Self-Report) Question [...] documented as of this encounter Care Teams Data Collector Relationship Specialty Start Date End Date Jaz Myers MD [address] [place] [address] [address] [place] [address] PCP - General Internal Medicine 11/16/23 Radha Fox MD, S [address] [place] [address] [email or web address] Referring Physician Pulmonary Disease 06/14/24 Devyn Jay MD [address] [address] Pulmonary Disease 09/08/24 documented as of this encounter Additional Source Comments The information contained in this document represents components of the legal health record. It is not the complete legal health record.[facility]
--- OUTSIDE RECORDS SUMMARY | 2025-04-04 16:51 | XMS_ITS | Encounter Summary ---
Author Organization [facility] Address [address] [place] [address] Phone Care Team Providers Care Sausage Meat Trimmer Name Role Phone Jaz Myers MD Primary Care Provider [phone] Radha Fox MD, S Unavailable Devyn Jay MD Unavailable [phone] Encounter Details Date Type Department Care Team (Late st Contact Info) Description 05/19/2024 Procedure Pass [facility] Echocardiography [address] [place] [address] Social History Tobacco Use Types Packs/Day Years [...] documented as of this encounter Care Teams Sausage Meat Trimmer Relationship Specialty Start Date End Date Jaz Myers MD [address] [place] [address] [address] [place] [address] PCP - General Internal Medicine 11/16/23 Radha Fox MD, S [address] [place] [address] [address] [place] [address] Referring Physician Pulmonary Disease 06/14/24 Devyn Jay MD [address] [place] [address] [address] [place] [address] Pulmonary Disease 09/08/24 documented as of this encounter Additional Source Comments The information contained in this document represents components of the legal health record. It is not the complete legal health record.[facility]
--- OUTSIDE RECORDS SUMMARY | 2025-04-04 16:51 | XMS_ITS | Encounter Summary ---
Author Organization [facility] Address [address] [facility] [address] [place] [address] Phone Care Team Providers Care Natural Sciences Professor Name Role Phone Jaz Myers MD Primary Care Provider [phone] Radha Fox MD, S Unavailable Devyn Jay MD Unavailable [phone] Encounter Details Date Type Department Care Team (Late st Contact Info) Description 02/23/2025 Hospital Encounter [facility] Endoscopy Department 75 [place] [address] Social History Tobacco Use Types Packs/Day Years [...] documented as of this encounter Care Teams Natural Sciences Professor Relationship Specialty Start Date End Date Jaz Myers MD [address] [place] [address] [address] [place] [address] PCP - General Internal Medicine 11/16/23 Radha Fox MD, S [address] [place] [address] 3 [place] [address] Referring Physician Pulmonary Disease 06/14/24 Devyn Jay MD [address] [place] [address] 200 [place] [address] Pulmonary Disease 09/08/24 documented as of this encounter Additional Source Comments The information contained in this document represents components of the legal health record. It is not the complete legal health record.[facility]
--- OUTSIDE RECORDS SUMMARY | 2025-04-04 16:51 | XMS_ITS | Encounter Summary ---
Author Organization [facility] Address [address] [facility] [address] [place] [address] Phone Care Team Providers Care Senior Risk Analyst Name Role Phone Jaz Myers MD Primary Care Provider [phone] Radha Fox MD, S Unavailable Devyn Jay MD Unavailable [phone] Encounter Details Date Type Department Care Team (Late st Contact Info) Description 11/17/2023 Procedure Pass [facility] Endoscopy Admitting Dept Virtual Department 30 [place] [address] Social History Tobacco Use Types Packs/Day Years [...] as of this encounter Care Teams Senior Risk Analyst Relationship Specialty Start Date End Date Jaz Myers MD [address] [place] [address] PCP - General Internal Medicine 11/16/23 Radha Fox MD, S [address] [facility] 3 [place] [address] [email or web address] Referring Physician Pulmonary Disease 06/14/24 Devyn Jay MD [address] [place] [address] 200 [place] [address] Pulmonary Disease 09/08/24 documented as of this encounter Additional Source Comments The information contained in this document represents components of the legal health record. It is not the complete legal health record.[facility]
--- OUTSIDE RECORDS SUMMARY | 2025-04-04 16:51 | XMS_ITS | Encounter Summary ---
Author Organization [facility] Address [address] [facility] [address] [place] [address] Phone Care Team Providers Care Car Repairman Name Role Phone Jaz Myers MD Primary Care Provider [phone] Radha Fox MD, S Unavailable Devyn Jay MD Unavailable [phone] Encounter Details Date Type Department Care Team (Late st Contact Info) Description 02/23/2025 Procedure Pass [facility] Endoscopy Department 75 [place] [address] Social History Tobacco Use Types Packs/Day Years [...] as of this encounter Care Teams Car Repairman Relationship Specialty Start Date End Date Jaz Myers MD [address] [place] [address] Drive [address] [place] [address] PCP - General Internal Medicine 11/16/23 Radha Fox MD, S [address] [place] [address] 3 [place] [address] Referring Physician Pulmonary Disease 06/14/24 Devyn Jay MD [address] [place] [address] 200 [place] [address] Pulmonary Disease 09/08/24 documented as of this encounter Additional Source Comments The information contained in this document represents components of the legal health record. It is not the complete legal health record.[facility]
--- OUTSIDE RECORDS SUMMARY | 2025-04-04 16:51 | XMS_ITS | Encounter Summary ---
Author Organization [facility] Address [address] [facility] [address] [place] [address] Phone Care Team Providers Care Giver Name Role Phone Jaz Myers MD Primary Care Provider [phone] Radha Fox MD, S Unavailable Devyn Jay MD Unavailable [phone] Encounter Details Date Type Department Care Team (Late st Contact Info) Description 05/19/2024 Procedure Pass [facility] 75 [place] [address] Social History Tobacco Use Types Packs/Day Years Used Date Smoking Tobacco: Never Smokeless Tobacco: Never Education Answer Date Recorded Are you interested in more education? Not on nag e 11/16/2023 Are you concerned about learning? [...] documented as of this encounter Care Teams Giver Relationship Specialty Start Date End Date Jaz Myers MD [address] [place] [address] Drive [address] [place] [address] PCP - General Internal Medicine 11/16/23 Radha Fox MD, S [address] [place] [address] 3 [place] [address] [email or web address] Referring Physician Pulmonary Disease 06/14/24 Devyn Jay MD [address] [place] [address] 200 [place] [address] Pulmonary Disease 09/08/24 documented as of this encounter Additional Source Comments The information contained in this document represents components of the legal health record. It is not the complete legal health record.[facility]
--- OUTSIDE RECORDS SUMMARY | 2025-04-04 16:51 | XMS_ITS | Encounter Summary ---
Author Organization [facility] Address [address] [facility] [address] [place] [address] Phone Care Team Providers Care Business Unit Controller Name Role Phone Jaz Myers MD Primary Care Provider Radha Fox MD, S Unavailable Devyn Jay MD Unavailable [phone] Reason for Referral * MRI/CAT Scan - Closed Specialty Diagnoses / Procedures Referred By Contac t Referred To Contact Radiology Diagnoses Interstitial lung disease Procedures NC PET/CT Cardiac Sarcoid PET/SPECT NC SPECT MYOCARDIAL VIABILITY CHG MYOCRD IMG PET METAB EVAL SINGLE STUDY CNCRNT CT CHG MYOCARDIAL SPECT SINGLE STUDY AT REST OR STRESS Radha Fox MD, S [address] [address] Phone: tel: fax: [email or web address] Referral ID Status Reason Start Date Expiration Date Visits Re quested Visits Authorized [id number] Closed 06/21/2024 08/29/2024 1 1 Encounter Details Date Type Department Care Team (Latest Contact Info) Description 06/16/2024 Ancillary Orders [facility] Lung Center-Pulmonary Medicine 15 [place] [address] Radha Fox MD, S 75 [place] [address] [email or web address] Interstitial lung disease (Primary Dx) Social History [...] 06/19/2024 9:22 AM Beth Anderson RN * [place] Suicide Severity Rating Scale (Screener/Recent Self-Report) Question Answer Date of Assessment Author 1. Wish to be (Past 1 Month) No 06/19/2024 9:22 AM Beth Fernando RN 2. Non-Specific Active Suicidal Thoughts (Past 1 Month) No 06/19/2024 9:22 AM Beth Fernando RN 6. Suicidal Behavior (Lifetime) No 06/19/2024 9:22 AM GUILLERMO [place]Beth nelson VISHAL orozco documented as of this [...] documented as of this encounter Care Teams Business Unit Controller Relationship Specialty Start Date End Date Jaz Myers MD [address] [place] [address] PCP - General Internal Medicine 11/16/23 Radha Fox MD, S [address] [place] [address] [email or web address] Referring Physician Pulmonary Disease 06/14/24 Devyn Jay MD [address] [place] [address] Pulmonary Disease 09/08/24 documented as of this encounter Additional Source Comments The information contained in this document represents components of the legal health record. It is not the complete legal health record.[facility]
== END 2025-04-04 14:16 | disposition home or self-care (01) ==
LOC: HO.HMCH 13:45
PROVIDERS: PCP Internal Medicine; Visit Provider Internal Medicine
DX: R03.0 Elevated blood-pressure reading, without diagnosis of hypertension (principal); E78.00 Pure hypercholesterolemia, unspecified; D68.59 Other primary thrombophilia; K64.9 Unspecified hemorrhoids; N40.1 Benign prostatic hyperplasia with lower urinary tract symptoms; R35.0 Frequency of micturition; D50.8 Other iron deficiency anemias; D86.9 Sarcoidosis, unspecified; I10 Essential (primary) hypertension; M79.605 Pain in left leg; I82.509 Chronic embolism and thrombosis of unspecified deep veins of unspecified lower extremity

== ENCOUNTER → 2025-04-04 13:44 | Outpatient (BNVA) | payer OTHER, SELFPAY | PROVIDERS: PCP Internal Medicine; Visit Provider Internal Medicine | DX: I10 Essential (primary) hypertension (principal); E78.00 Pure hypercholesterolemia, unspecified; D68.59 Other primary thrombophilia; K64.9 Unspecified hemorrhoids; N40.1 Benign prostatic hyperplasia with lower urinary tract symptoms; R35.0 Frequency of micturition; D50.8 Other iron deficiency anemias; D86.9 Sarcoidosis, unspecified; M79.605 Pain in left leg; Z99.81 Dependence on supplemental oxygen; Z86.718 Personal history of other venous thrombosis and embolism; Z79.01 Long term (current) use of anticoagulants | CPT/HCPCS: 99212 ==

== ENCOUNTER 2025-04-04 15:16 | Outpatient (REF) | payer OTHER, SELFPAY ==
--- NOTE | ~2025-04-04 | US_ITS ---
EXAMINATION: US TRIPLEX LOWER EXTREMITY, LEFT CLINICAL INFORMATION: Leg pain. Additional clinical history, patient on daily blood thinner. COMPARISON: Ultrasound 03/26/2021 TECHNIQUE: Color-flow triplex imaging with spectral analysis and compression Doppler were performed on the left lower extremity. FINDINGS: There is partial compression of the mid and distal femoral vein, and the popliteal vein, with peripheral echogenic foci. Findings are consistent with the thrombosis, appearance suggestive of chronic thrombosis. The common femoral vein, proximal femoral vein, profunda femoral vein, mid calf posterior tibial segments show no evidence of thrombosis. The peroneal veins in the calf are not well seen. US/US venous duplex LE IMPRESSION: Echogenic focus with partial compression of the mid and distal femoral vein, popliteal vein. Findings are consistent with thrombosis, appearance suggestive of a nonacute/chronic thrombosis. Clinically correlate. The peroneal veins in the calf are not well seen. If the patient's symptoms persist, followup ultrasound in 5-7 days might be of value to exclude proximal propagation from a non-visualized calf vein. Recommend follow-up ultrasound to ensure stability/resolution. Electronically signed by: Manuelito Coffman MD 04/04/2025 03:51 PM GUILLERMO
== END 2025-04-04 15:17 | disposition home or self-care (01) ==
LOC: HO.US 15:16
PROVIDERS: PCP Internal Medicine; Visit Provider Internal Medicine
DX: M79.605 Pain in left leg (principal); I82.502 Chronic embolism and thrombosis of unspecified deep veins of left lower extremity; Z79.01 Long term (current) use of anticoagulants
CPT/HCPCS: 93971

== ENCOUNTER 2025-04-10 07:58 | Outpatient (AMB) | payer OTHER, SELFPAY ==
--- OUTSIDE RECORDS SUMMARY | 2025-04-10 08:00 | XMS_ITS | Encounter Summary ---
Author Organization [facility] Address [address] [facility] [address] [place] [address] Phone Care Team Providers Care Referral Management Liaison Name Role Phone Jaz Myers MD Primary Care Provider [phone] Radha Fox MD, S Unavailable Devyn Jay MD Unavailable [phone] Encounter Details Date Type Department Care Team (Late st Contact Info) Description 02/23/2025 Hospital Encounter [facility] Endoscopy Department 75 [place] [address] Social History Tobacco Use Types Packs/Day Years [...] documented as of this encounter Care Teams Referral Management Liaison Relationship Specialty Start Date End Date Jaz Myers MD [address] [place] [address] [address] [place] [address] PCP - General Internal Medicine 11/16/23 Radha Fox MD, S [address] [place] [address] 3 [place] [address] Referring Physician Pulmonary Disease 06/14/24 Devyn Jay MD [address] [place] [address] 200 [place] [address] Pulmonary Disease 09/08/24 documented as of this encounter Additional Source Comments The information contained in this document represents components of the legal health record. It is not the complete legal health record.[facility]
--- OUTSIDE RECORDS SUMMARY | 2025-04-10 08:00 | XMS_ITS | Encounter Summary ---
Author Organization [facility] Address [address] [facility] [address] [place] [address] Phone Care Team Providers Care Rn Research Name Role Phone Jaz Myers MD Primary Care Provider [phone] Radha Fox MD, S Unavailable Devyn Jay MD Unavailable [phone] Encounter Details Date Type Department Care Team (Late st Contact Info) Description 11/17/2023 Procedure Pass [facility] Endoscopy Admitting Dept Virtual Department 30 [place] [address] Social History Tobacco Use Types Packs/Day Years [...] documented as of this encounter Care Teams Rn Research Relationship Specialty Start Date End Date Jaz Myers MD [address] [place] [address] PCP - General Internal Medicine 11/16/23 Radha Fox MD, S 75 [facility] 3 [place] [address] [email or web address] Referring Physician Pulmonary Disease 06/14/24 Devyn Jay MD [address] [place] [address] 200 [place] [address] Pulmonary Disease 09/08/24 documented as of this encounter Additional Source Comments The information contained in this document represents components of the legal health record. It is not the complete legal health record.[facility]
--- OUTSIDE RECORDS SUMMARY | 2025-04-10 08:00 | XMS_ITS | Encounter Summary ---
Author Organization [facility] Address [address] [facility] [address] [place] [address] Phone Care Team Providers Care Harnessmaker Name Role Phone Jaz Myers MD Primary Care Provider [phone] Radha Fox MD, S Unavailable Devyn Jay MD Unavailable Encounter Details Date Type Department Care Team (Late st Contact Info) Description 02/23/2025 Procedure Pass [facility] Endoscopy Department 75 [place] [address] Social History Tobacco Use Types Packs/Day Years [...] documented as of this encounter Care Teams Harnessmaker Relationship Specialty Start Date End Date Jaz Myers MD [address] [place] [address] Drive [address] [place] [address] PCP - General Internal Medicine 11/16/23 Radha Fox MD, S [address] [place] [address] 3 [place] [address] Referring Physician Pulmonary Disease 06/14/24 Devyn Jay MD [address] [place] [address] 200 [place] [address] Pulmonary Disease 09/08/24 documented as of this encounter Additional Source Comments The information contained in this document represents components of the legal health record. It is not the complete legal health record.[facility]
--- OUTSIDE RECORDS SUMMARY | 2025-04-10 08:01 | XMS_ITS | Encounter Summary ---
Author Organization [facility] Address [address] [facility] [address] [place] [address] Phone Care Team Providers Care Carbide Tool Maker Name Role Phone Jaz Myers MD Primary Care Provider [phone] aRdha Fox MD, S Unavailable Devyn Jay MD Unavailable [phone] Encounter Details Date Type Department Care Team (Late st Contact Info) Description 05/19/2024 Procedure Pass [facility] 75 [place] [address] Social History Tobacco Use Types Packs/Day Years [...] documented as of this encounter Care Teams Carbide Tool Maker Relationship Specialty Start Date End Date Jaz Myers MD [address] [place] [address] Drive [address] [place] [address] PCP - General Internal Medicine 11/16/23 Radha Fox MD, S [address] [place] [address] 3 [place] [address] [email or web address] Referring Physician Pulmonary Disease 06/14/24 Devyn Jay MD [address] [place] [address] 200 [place] [address] Pulmonary Disease 09/08/24 documented as of this encounter Additional Source Comments The information contained in this document represents components of the legal health record. It is not the complete legal health record.[facility]
--- OUTSIDE RECORDS SUMMARY | 2025-04-10 08:01 | XMS_ITS | Clinical Summary ---
Author Organization [facility] Address [address] [facility] [address] [place] [address] Phone Care Team Providers Care Environmental Engineering Professor Name Role Phone Jaz Myers MD Primary Care Provider [phone] Radha Fox MD, S Unavailable Devyn Jay MD Unavailable [phone] Allergies No known active allergies Medications warfarin [...] bronch washings have tested positive for covid. Rn Surgery Icu saw ? Lesion on right vocal cord. [...] management of sarcoidosis (followed by pulmonology in [place]). Patient had been using supplemental oxygen increasingly, [...] dose until advised further by patient's primary inspector process -Goal SpO2 with supplemental oxygen > 90% and < 96% -Outpatient follow-up with inspector process in [place] Resolved Problems Problem Noted Date Diagnosed Date [...] Department Care Team Description 02/23/2025 Procedure Pass [facility] Endoscopy Department 75 [place] [address] 02/23/2025 Hospital Encounter [facility] Endoscopy Department 75 [place] [address] 02/16/2025 Refill [facility] [address] [place] [address] Matilda Mukherjee MD Medication Refill from Last [...] (08/03/2024 1:38 PM EDT) HCV Nonreactive Nonreactive [facility] 08/03/2024 1:38 PM EDT 08/03/2024 2:00 PM EDT us Melinda Epps MD LAB BLOOD BKR ORDERABLES Final R esult [facility] 75 [place] [address] * (ABNORMAL) Lipid panel (08/03/2024 1:38 PM EDT) CHOLESTEROL 253(H) <200 mg/dL [facility] TRIGLYCERIDES 255(H) 35 - 150 mg/dL [facility] HDL 100(H) 40 - 80 mg/dL [facility] CALCULATED LDL 102 50 - 129 mg/dL [facility] VLDL 51(H) <31 mg/dL [facility] CARDIAC RISK RATIO 2.5 0.0 - 4.0 [facility] 08/03/2024 1:38 PM EDT 08/03/2024 2:00 PM EDT us Melinda Epps MD LAB BLOOD BKR ORDERABLES Final R esult [facility] 75 [place] [address] from Last 3 Months or Most Recently Relevant to Health Maintenance [place] [address] [place] [address] [place] [address] [place] [address] [place] [address] A[address] [facility] ACO [facility] ACO Advance Directives For more information, please contact: [phone] (9AM - 5PM [facility], Wednesday-Wednesday) Documents on File Type Date Recorded Patient Senior Cyber Intelligence Analyst Expl anation Healthcare Proxy 11/22/2023 5:32 PM [...] Status Communicated To: Inpatient Attending Care Teams Environmental Engineering Professor Relationship Specialty Start Date End Date Po, Jaz Whalen MD [address] [place] [address] PCP - General Internal Medicine 11/16/23 Radha Fox MD, S 75 [facility] 3 [place] [address] Referring Physician Pulmonary Disease 06/14/24 Devyn Jay MD [address] [facility] 200 [place] [address] Pulmonary Disease 09/08/24 Additional Source Comments The information contained in this document represents components of the legal health record. It is not the complete legal health record.[facility]
--- OUTSIDE RECORDS SUMMARY | 2025-04-10 08:01 | XMS_ITS | Encounter Summary ---
Author Organization [facility] Address [address] [facility] [address] [place] [address] Phone Care Team Providers Care Senior Automation Engineer Name Role Phone Jaz Myers MD Primary Care Provider [phone] Radha Fox MD, S Unavailable Devyn Jay MD Unavailable [phone] Encounter Details Date Type Department Care Team (Late st Contact Info) Description 05/24/2024 Transcribe Orders [facility] EKG 70 [place] [address] Jaz Myers MD [address] [place] [address] Social History Tobacco Use Types [...] as of this encounter Care Teams Senior Automation Engineer Relationship Specialty Start Date End Date Po, Jaz Whalen MD [address] [place] [address] Drive [address] [place] [address] PCP - General Internal Medicine 11/16/23 Radha Fox MD, [facility] [address] [place] [address] 3 [place] [address] [email or web address] Referring Physician Pulmonary Disease 06/14/24 Devyn Jay MD [address] [place] [address] 200 [place] [address] Pulmonary Disease 09/08/24 documented as of this encounter Additional Source Comments The information contained in this document represents components of the legal health record. It is not the complete legal health record.[facility]
--- OUTSIDE RECORDS SUMMARY | 2025-04-10 08:01 | XMS_ITS | Encounter Summary ---
Author Organization [facility] Address [address] [facility] [address] [place] [address] Phone Care Team Providers Care Luggage Attendant Name Role Phone Jaz Myers MD Primary Care Provider [phone] Radha Fox MD, S Unavailable Devyn Jay MD Unavailable [phone] Reason for Referral * MRI/CAT Scan - Closed Specialty Diagnoses / Procedures Referred By Contac t Referred To Contact Radiology Diagnoses Interstitial lung disease Procedures NC PET/CT Cardiac Sarcoid PET/SPECT NC SPECT MYOCARDIAL VIABILITY CHG MYOCRD IMG PET METAB EVAL SINGLE STUDY CNCRNT CT CHG MYOCARDIAL SPECT SINGLE STUDY AT REST OR STRESS Radha Fox MD, S [address] [address] Phone: tel: fax: [email or web address]:[email or web address] Referral ID Status Reason Start Date Expiration Date Visits Re quested Visits Authorized [id number] Closed 06/21/2024 08/29/2024 1 1 Encounter Details Date Type Department Care Team (Latest Contact Info) Description 06/16/2024 Ancillary Orders [facility] Lung Center-Pulmonary Medicine 15 [place] [address] Radha Fox MD, S 75 [place] [address] [email or web address] Interstitial lung disease (Primary Dx) Social History [...] 06/19/2024 9:22 AM Beth Anderson RN * [place] Suicide Severity Rating Scale (Screener/Recent Self-Report) Question Answer Date of Assessment Author 1. Wish to be (Past 1 Month) No 06/19/2024 9:22 AM Beth Fernando RN 2. Non-Specific Active Suicidal Thoughts (Past 1 Month) No 06/19/2024 9:22 AM Beth Fernando RN 6. Suicidal Behavior (Lifetime) No 06/19/2024 9:22 AM GUILLERMO [place] VISHAL orozco documented as of this [...] documented as of this encounter Care Teams Luggage Attendant Relationship Specialty Start Date End Date Jaz Myers MD [address] [place] [address] PCP - General Internal Medicine 11/16/23 Radha Fox MD, S [address] [place] [address] [email or web address] Referring Physician Pulmonary Disease 06/14/24 Devyn Jay MD [address] [place] [address] Pulmonary Disease 09/08/24 documented as of this encounter Additional Source Comments The information contained in this document represents components of the legal health record. It is not the complete legal health record.[facility]
--- OUTSIDE RECORDS SUMMARY | 2025-04-10 08:01 | XMS_ITS | Encounter Summary ---
Author Organization [facility] Address [address] [facility] [address] [place] [address] Phone Care Team Providers Care Director Of Student Financial Services Name Role Phone Jaz Myers MD Primary Care Provider [phone] Radha Fox MD, S Unavailable Devyn Jay MD Unavailable [phone] Encounter Details Date Type Department Care Team (Late st Contact Info) Description 05/19/2024 Procedure Pass [facility] Echocardiography 70 [place] [address] Social History Tobacco Use Types Packs/Day Years [...] as of this encounter Care Teams Director Of Student Financial Services Relationship Specialty Start Date End Date Jaz Myers MD [address] [place] [address] [address] [place] [address] PCP - General Internal Medicine 11/16/23 Radha Fox MD, S [address] [place] [address] 3 [place] [address] Referring Physician Pulmonary Disease 06/14/24 Devyn Jay MD [address] [place] [address] 200 [place] [address] Pulmonary Disease 09/08/24 documented as of this encounter Additional Source Comments The information contained in this document represents components of the legal health record. It is not the complete legal health record.[facility]
--- OUTSIDE RECORDS SUMMARY | 2025-04-10 08:01 | XMS_ITS | Encounter Summary ---
Author Organization [facility] Address [address] [place] [address] Phone Care Team Providers Care Paint Spray Inspector Name Role Phone Jaz Myers MD Primary Care Provider [phone] Radha Fox MD, S Unavailable Devyn Jay MD Unavailable [phone] Encounter Details Date Type Department Care Team (Late st Contact Info) Description 11/16/2023 Procedure Pass , Ct Scan - [address] [address] Social History Tobacco Use Types Packs/Day Years [...] 5:07 PM EDT Nany Warren RN * [place] Suicide Severity Rating Scale (Screener/Recent Self-Report) Question [...] documented as of this encounter Care Teams Paint Spray Inspector Relationship Specialty Start Date End Date Jaz Myers MD [address] [place] [address] [address] [place] [address] PCP - General Internal Medicine 11/16/23 Radha Fox MD, S [address] [place] [address] [email or web address] Referring Physician Pulmonary Disease 06/14/24 Devyn Jay MD [address] [address] Pulmonary Disease 09/08/24 documented as of this encounter Additional Source Comments The information contained in this document represents components of the legal health record. It is not the complete legal health record.[facility]
--- OUTSIDE RECORDS SUMMARY | 2025-04-10 08:01 | XMS_ITS ---
Author Organization [facility] Address [address] [place] [address] Phone Care Team Providers Care Early Childhood Educator Aide Name Role Phone Jaz Myers MD Primary Care Provider [phone] Radha Fox MD, S Unavailable Devyn Jay MD Unavailable [phone] Transplant Episode Lung Candidate [facility] ([place] [place] Evaluation began on 06/19/2024 Marked as Deferred on 10/18/2024 Reason: Unable to Contact Patient Lung CoordinatorAna Da Silva RN Email: [email or web address] Scores Score Value Updated Exceptions/Reas ons CPRA 0 08/03/2024 LAS Not available Care Team Name Role Phone Fax Email Ana Da Silva RN Lung Coordinator [phone] [email or web address] Giovana Self Metal Sash Setter [phone] [email or web address] Radha Fox MD, S Referring Physician [phone] [email or web address] Evette Reilly Puppet Maker N/A [email or web address]/A [email or web address] Events Pre-Transplant Referred: 06/14/2024 Evaluation began: 06/19/2024
[2025-04-10 08:06] LABS: Prothrombin Time Whole Bld POC 19.3 sec (11.1-13.5); ~PT, ~INR - Anti Coag Clinic 1.6 (0.9-1.1)
--- NOTE | 2025-04-10 08:13 | MHC.OFFVISCO ---
Intake Intake Visit Reasons: Anticoagulation Allergies No Known Allergies (No Known Allergies*) Allergy (Verified 04/10/25 08:01) Medication List - Last Reconciled 04/10/25 by Mami Springer RN albuterol sulfate 90 mcg/actuation 2 inhalations inhalation Q6H PRN 30 days ascorbic acid (vitamin C) ER 500 mg PO DAILY blood pressure monitor (Blood Pressure Kit) As directed calcium citrate 1,000 mg PO DAILY cetirizine 10 mg PO DAILY PRN chlorpheniramine maleate (Allergy Relief (chlorpheniramine)) 4 mg PO Q6H PRN cholecalciferol (vitamin D3) (Vitamin D3) 100 mcg (2 x 50 mcg (2,000 unit)) PO DAILY 30 days clotrimazole 1% 1 appl topical BID 4 weeks infliximab (Remicade) 336 mg IV Q4W 12 months nifedipine ER 30 mg PO DAILY nintedanib (Ofev) 150 mg PO Q12H nutritional supplements (Ensure) PO omeprazole 40 mg PO DAILY Oxygen Home Use As directed prednisolone acetate 1% (Pred Forte) 1 drp ophthalmic (eye) BEDTIME prednisone 10 mg PO QAM warfarin (Jantoven) 4 mg See Protocol PO BEDTIME Nursing Note INR: 1.6 out of therapeutic range of 2-3 Previous INR 1.7 on 04/03/25. Pt states he has been eating more. Medications and supplements reviewed Patient status: feels well Medications or supplements: new BP med Nifedipine (no effect on INR) Diet: no changes Denies any signs and symptoms of bleeding or clotting or unusual bruising Bleeding, bruising, clotting discussed Nutritional guidance given: to avoid greens X 2 days and to have a serving of foods that raise the INR today and tomorrow Dose: weekly dose increased by 2mg to 4mg X 6 days and 2mg X 1 day (Sun) Today dose increased to 6mg F/U INR Date: 04/16/25?? Patient verbalizing understanding of instructions given. Anti-Coag Initial Assessment Social Hx Patient Tobacco Use Status: Never used Tobacco alcohol intake: current Alcohol intake frequency: does not drink Coding Level of Care Code Est Patient Level 1 Diagnoses Current use of anticoagulant therapy Z79.01 Results AMB INR Fingerstick AMB INR Fingerstick 1.6 Last Edit by Mami Springer RN on 04/10/25 08:14 interface delay Assessment & Plan Assessment & Plan (1) Current use of anticoagulant therapy: Code(s): Z79.01 - 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
== END 2025-04-10 08:23 | disposition home or self-care (01) ==
LOC: HO.ACS 07:58
PROVIDERS: PCP Internal Medicine
DX: Z79.01 Long term (current) use of anticoagulants (principal)

== ENCOUNTER → 2025-04-10 07:58 | Outpatient (BNVA) | payer OTHER, SELFPAY | PROVIDERS: PCP Internal Medicine | DX: I82.402 Acute embolism and thrombosis of unspecified deep veins of left lower extremity (principal); Z51.81 Encounter for therapeutic drug level monitoring; Z79.01 Long term (current) use of anticoagulants | CPT/HCPCS: 85610; 99211 ==

== ENCOUNTER 2025-04-16 08:00 | Outpatient (AMB) | payer OTHER, SELFPAY ==
--- OUTSIDE RECORDS SUMMARY | 2024-11-27 06:40 | XMS_ITS ---
Author Organization [facility] Address [address] [place] [address] Care Team Providers Care Bingo Cashier Name Role Phone Jaz Myers MD Primary Care Provider Mason Castro [phone] REASON FOR VISIT screening colonoscopy Encounters Encounter Location Date Provider Diagnosis [facility] [place] [address] [place] [phone] 11/27/2024 Mason Rock Plan Of Treatment No Information Progress Notes * NELLY OWENS EDOB:[birth year] (59 yo M)Acc No.[id number]:11/27/2024 COLON WITH MAC Patient: NELLY BRANHAM Provider: Vinicio Rock MD :1965 A ge:59 Y S ex:Male Date:11/27/2024 Address:[address] [place], [place] [phone] Pcp:Jaz Myers MD Subjective: * Chief Complaints: [...] 11/27/2024 Generated for Bridgett gloria/Dipika/eTsanfordsmitting on: 1 06/17/2024 08:07 AM EST
--- OUTSIDE RECORDS SUMMARY | 2024-12-01 14:12 | XMS_ITS ---
Author Organization [facility] Address [address] [place] [address] Care Team Providers Care Cast Shell Grinder Name Role Phone Po Jaz ROBIN Primary Care Provider Mason Castro [phone] REASON FOR VISIT ? need to treat colitis on 11/27 colon Encounters Encounter Location Date Provider Diagnosis [facility] [address] [place] [address] 12/01/2024 [place] Plan Of Treatment No Information Progress Notes * NELLY OWENS EDOB:[birth year] (59 yo M)Acc No.[id number]:12/01/2024 Patient: NELLY BRANHAM :1965 A ge:59 Y S ex:Male Address:[address] [place], [address] Subjective: * Chief Complaints: * ? need to treat colitis on 11/27 colon * * Date:
--- OUTSIDE RECORDS SUMMARY | 2025-04-16 08:07 | XMS_ITS | Encounter Summary ---
Author Organization [facility] Address [address] [place] [address] Phone Care Team Providers Care Soda Dispenser Name Role Phone Jaz Myers MD Primary Care Provider [phone] Radha Fox MD, S Unavailable Devyn Jay MD Unavailable [phone] Encounter Details Date Type Department Care Team (Late st Contact Info) Description 02/23/2025 Procedure Pass [facility] Endoscopy Department [address] [place] [address] Social History Tobacco Use Types Packs/Day Years [...] documented as of this encounter Care Teams Soda Dispenser Relationship Specialty Start Date End Date Jaz Myers MD [address] [place] [address] Drive [address] [place] [address] PCP - General Internal Medicine 11/16/23 Radha Fox MD, S [address] [place] [address] 3 [place] [address] Referring Physician Pulmonary Disease 06/14/24 Devyn Jay MD [address] [place] [address] [address] [place] [address] Pulmonary Disease 09/08/24 documented as of this encounter Additional Source Comments The information contained in this document represents components of the legal health record. It is not the complete legal health record.[facility]
--- OUTSIDE RECORDS SUMMARY | 2025-04-16 08:07 | XMS_ITS ---
Author Organization [facility] Address [address] [place] [address] Phone Care Team Providers Care Scraper Operator Name Role Phone Jaz Myers MD Primary Care Provider [phone] Radha Fox MD, S Unavailable Devyn Jay MD Unavailable [phone] Transplant Episode Lung Candidate [facility] [place] Evaluation began on 06/19/2024 Marked as Deferred on 10/18/2024 Reason: Unable to Contact Patient Lung CoordinatorAna Da Silva RN Email: [email or web address] Scores Score Value Updated Exceptions/Reas ons CPRA 0 08/03/2024 LAS Not available Care Team Name Role Phone Fax Email Ana Da Silva RN Lung Coordinator [phone] [email or web address] Giovana Self Grounds Crew Supervisor [phone] [email or web address] Radha Fox MD, S Referring Physician [phone] [email or web address] Evette Reilly Medical Services Assistant N/A N/A [email or web address] .[email or web address] Events Pre-Transplant Referred: 06/14/2024 Evaluation began: 06/19/2024
--- OUTSIDE RECORDS SUMMARY | 2025-04-16 08:07 | XMS_ITS | Encounter Summary ---
Author Organization [facility] Address [address] [place] [address] Phone Care Team Providers Care Coat Tailor Name Role Phone Jaz Myers MD Primary Care Provider [phone] Radha Fox MD, S Unavailable Devyn Jay MD Unavailable Encounter Details Date Type Department Care Team (Late st Contact Info) Description 02/23/2025 Hospital Encounter [facility] Endoscopy Department [address] [place] [address] Social History Tobacco Use Types Packs/Day Years [...] documented as of this encounter Care Teams Coat Tailor Relationship Specialty Start Date End Date Jaz Myers MD [address] [place] [address] [address] [place] [address] PCP - General Internal Medicine 11/16/23 Radha Fox MD, S [address] [place] [address] 3 [place] [address] Referring Physician Pulmonary Disease 06/14/24 Devyn Jay MD [address] [place] [address] [address] [place] [address] Pulmonary Disease 09/08/24 documented as of this encounter Additional Source Comments The information contained in this document represents components of the legal health record. It is not the complete legal health record.[facility]
--- OUTSIDE RECORDS SUMMARY | 2025-04-16 08:07 | XMS_ITS | Encounter Summary ---
Author Organization [facility] Address [address] [place] [address] Phone Care Team Providers Care Firesetter Name Role Phone Jaz Myers MD Primary Care Provider [phone] Radha Fox MD, S Unavailable Devyn Jay MD Unavailable Encounter Details Date Type Department Care Team (Late st Contact Info) Description 11/17/2023 Procedure Pass [facility] Endoscopy Admitting Dept Virtual Department [address] [place] [address] Social History Tobacco Use Types Packs/Day Years [...] documented as of this encounter Care Teams Firesetter Relationship Specialty Start Date End Date Jaz Myers MD [address] [place] [address] PCP - General Internal Medicine 11/16/23 Radha Fox MD, S [address] [facility] 3 [place] [address] [email or web address] Referring Physician Pulmonary Disease 06/14/24 Devyn Jay MD [address] [place] [address] [address] [place] [address] Pulmonary Disease 09/08/24 documented as of this encounter Additional Source Comments The information contained in this document represents components of the legal health record. It is not the complete legal health record.[facility]
--- OUTSIDE RECORDS SUMMARY | 2025-04-16 08:08 | XMS_ITS | Encounter Summary ---
Author Organization [facility] Address [address] [place] [address] Phone Care Team Providers Care Jacket Preparer Name Role Phone Jaz Myers MD Primary Care Provider [phone] Radha Fox MD, S Unavailable Devyn Jay MD Unavailable [phone] Encounter Details Date Type Department Care Team (Late st Contact Info) Description 05/19/2024 Procedure Pass [facility] Echocardiography [address] [place] [address] Social History Tobacco Use Types Packs/Day Years [...] documented as of this encounter Care Teams Jacket Preparer Relationship Specialty Start Date End Date Jaz Myers MD [address] [place] [address] [address] [place] [address] PCP - General Internal Medicine 11/16/23 Radha Fox MD, S [address] [place] [address] 3 [place] [address] Referring Physician Pulmonary Disease 06/14/24 Devyn Jay MD [address] [place] [address] 200 [place] [address] Pulmonary Disease 09/08/24 documented as of this encounter Additional Source Comments The information contained in this document represents components of the legal health record. It is not the complete legal health record.[facility]
--- OUTSIDE RECORDS SUMMARY | 2025-04-16 08:08 | XMS_ITS | Patient Health Record ---
Author Organization [facility] Address [address] [place] [address] Care Team Providers Care Assistant Refinery Operator Name Role Phone Jaz Myers MD Primary Care Provider Mason Castro [phone] Allergies No Known Allergies Results Component Value Reference Range Flag Notes Pathology (Not yet reviewed by provider) Interpretation: Performing Lab:[facility], [address] [place] [phone] Notes/Report: Prothrombin Time INR Reviewed date:11/28/2024 10:12:07 AM Interpretation: Performing Lab:[facility], [address] [place] [phone] Notes/Report: Prothrombin Time 11.8 10.9-12.4 SEC N INTERNATIONAL NORM RATIO 1.0 0.9-1.1 N INTERNATIONAL NORMALIZED RATIO (INR) REFERENCE RANGES Reference [...] mechanical prosthetic heart valves: 2.5 - 3.5 Reason For Referral No Information Medications Medication SIG (Take, Route, Frequency, Duration) Notes Start Date End Date Status Ofev 150 MG Capsule 1 capsule Orally every 12 hrs Active Ventolin HFA 108 (90 Base) MCG/ACT Aerosol Solution 1 puff as needed Inhalation every 4 hrs Active Omeprazole 40 MG Capsule Delayed Release 1 capsule 1/2 to 1 hour before morning meal Orally Once a day Active Vitamin D-3 25 MCG (1000 UT) Capsule 1 capsule Orally Once a day Active Calcium Citrate 150 MG Capsule as directed Orally Active Warfarin Sodium 4 MG Tablet 1 tablet Orally Once a day Active predniSONE 20 MG Tablet 1 tablet Orally Once a day; Duration: 30 day(s) For pulmonary sarcoidosis Active Immunizations Vaccine Route Administration Date Status Comme nts Influenza Unknown 02/15/2018 Administered Influenza Unknown 02/18/2021 Administered Influenza Unknown 01/25/2024 Administered Social History Tobacco Use: Social History Observation Description Date Details (start date - stop date) Never Smoker NA - NA Social History Drugs/Alcohol: Social Info Question Answer Notes Alcohol Screen Did you have a drink containing alcohol in the past year? Yes How often did you have a drink containing alcohol in the past year? Monthly or less (1 point) How many drinks did you have on a typical day when you were drinking in the past year? 1 or 2 drinks (0 point) How often did you have 6 or more drinks on one occasion in the past year? Never (0 point) Points 1 Interpretation Negative Tobacco Use: Social Info Question Answer Notes Tobacco Use/Smoking Patient is a nonsmoker Additional Details Category Social Info Options Details Miscellaneous: Marital status: Occupation: Works in a [employer] Notes: Nonsmoker; no sig alcohol Nonsmoker; no sig alcohol Nonsmoker; no sig alcohol Problems Problem Type SNOMED Code ICD Code Onset Dates Problem Status W/U Status Risk Notes Problem Colon cancer screening (458974988) Colon cancer screening (Z12.11) Active confirmed Problem Rectal bleeding (95834443) Rectal bleeding (K62.5) Active confirmed Problem History of adenomatous polyp of colon (876966794) History of adenomatous polyp of colon (Z86.010) Active confirmed Problem Preprocedural examination (188384855323077) Preprocedural examination (Z01.818) Active confirmed Problem Diverticulosis of colon (082822735) Diverticulosis of colon (K57.30) Active confirmed Vital Signs Temperature 97.8 degrees Fahrenheit 09/06/2024 Blood pressure diastolic 01 mm Hg 09/06/2024 Height 64 in 09/06/2024 Blood pressure systolic 001 mm Hg 09/06/2024 Weight 136 lbs 09/06/2024 BMI 23.34 kg/m2 09/06/2024 Procedures Procedure Date Ordered Date Performed Result Body Sit e COLONOSCOPY 09/06/2024 N/A Encounters Encounter Location Date Provider Diagnosis [facility] Outpatient [address] [place], [place] [phone] 11/27/2024 [place] [facility] [address] [place] [address] 09/06/2024 [place] History of adenomato us polyp of colon Z86.010 ; Preprocedural examination Z01.818 and Colon cancer screening Z12.11 [facility] [address] [place] [phone] 12/01/2024 [place] [facility] [address] [place] [phone] 09/06/2024 [place] [facility] [address] [place] [phone] 11/20/2024 [place] Assessments Encounter Date Diagnosis [...] cleared for a potential lung transplant in [place]. As such I will plan to arrange this for him. He will need to stop Coumadin for 5 days prior to the procedure and obtain a prescription and instructions for Lovenox use from Dr. Calabrese. We will also need to obtain clearance and some records from both Dr. Da Silva and the lung transplant clinic at [facility]. Full consent has been [...] in the colon. However, the difference in aMx's case is that he needs the follow-up colonoscopy in order to be cleared for a potential lung transplant in [place]. As such I will plan to arrange this for him. He will need to stop Coumadin for 5 days prior to the procedure and obtain a prescription and instructions for Lovenox use from Dr. Calabrese. We will also need to obtain clearance and some records from both Dr. Da Silva and the lung transplant clinic at [facility]. Full consent has been [...] cleared for a potential lung transplant in [place]. As such I will plan to arrange this for him. He will need to stop Coumadin for 5 days prior to the procedure and obtain a prescription and instructions for Lovenox use from Dr. Calabrese. We will also need to obtain clearance and some records from both Dr. Da Silva and the lung transplant clinic at [facility]. Full consent has been [...] Insured Coverage Start Date Coverage End Date [facility] [address] [address] [place], [place] [phone] [id number] MAX OWENS Self - patient is the insured MEDICAID OF [employer] [address] [place] [phone] [id number] MAX OWENS Self - patient is the insured Medical (General) History Medical History History ICD Code Denies ND,DM,CVA,Lung [...] followed by Dr. Da Silva at [facility] Pulmonary Department and the lung transplant center at [facility] in [place].He is currently on 2 L of nasal cannula 24 hours a day as of the August 2024 office visit. Surgical History Surgery Date(Month/Year) Hernia repair--umbilical 2017
--- OUTSIDE RECORDS SUMMARY | 2025-04-16 08:08 | XMS_ITS | Encounter Summary ---
Author Organization [facility] Address [address] [place] [address] Phone Care Team Providers Care Counter Caser Name Role Phone Jaz Myers MD Primary Care Provider [phone] Radha Fox MD, S Unavailable Devyn Jay MD Unavailable [phone] Reason for Referral * MRI/CAT Scan - Closed Specialty Diagnoses / Procedures Referred By Contac t Referred To Contact Radiology Diagnoses Interstitial lung disease Procedures NC PET/CT Cardiac Sarcoid PET/SPECT NC SPECT MYOCARDIAL VIABILITY CHG MYOCRD IMG PET METAB EVAL SINGLE STUDY CNCRNT CT CHG MYOCARDIAL SPECT SINGLE STUDY AT REST OR STRESS Radha Fox MD, S [address] [address] Phone: tel: fax: [email or web address] Referral ID Status Reason Start Date Expiration Date Visits Re quested Visits Authorized [id number] Closed 06/21/2024 08/29/2024 1 1 Encounter Details Date Type Department Care Team (Latest Contact Info) Description 06/16/2024 Ancillary Orders [facility]-Pulmonary Medicine [address] [place] [address] Radha Fox MD, S [address] [place] [address] [email or web address] Interstitial lung disease (Primary Dx) Social History [...] 06/19/2024 9:22 AM Beth Anderson RN * [place] Suicide Severity Rating Scale (Screener/Recent Self-Report) Question Answer Date of Assessment Author 1. Wish to be (Past 1 Month) No 06/19/2024 9:22 AM Beth Fernando RN 2. Non-Specific Active Suicidal Thoughts (Past 1 Month) No 06/19/2024 9:22 AM Beth Fernando RN 6. Suicidal Behavior (Lifetime) No 06/19/2024 9:22 AM GUILLERMO [place] VISHAL orozco documented as of this [...] documented as of this encounter Care Teams Counter Caser Relationship Specialty Start Date End Date Jaz Myers MD [address] [place] [address] PCP - General Internal Medicine 11/16/23 Radha Fox MD, S [address] [place] [address] [email or web address] Referring Physician Pulmonary Disease 06/14/24 Devyn Jay MD [address] [place] [address] Pulmonary Disease 09/08/24 documented as of this encounter Additional Source Comments The information contained in this document represents components of the legal health record. It is not the complete legal health record.[facility]
--- OUTSIDE RECORDS SUMMARY | 2025-04-16 08:08 | XMS_ITS | Encounter Summary ---
Author Organization [facility] Address [address] [place] [address] Phone Care Team Providers Care Senior Director Insight Name Role Phone Jaz Myers MD Primary Care Provider [phone] Radha Fox MD, S Unavailable Devyn Jay MD Unavailable [phone] Encounter Details Date Type Department Care Team (Late st Contact Info) Description 11/16/2023 Procedure Pass [facility], Ct Scan - [address] [address] Social History Tobacco Use Types Packs/Day Years [...] 5:07 PM EDT Nany Warren RN * [place] Suicide Severity Rating Scale (Screener/Recent Self-Report) Question [...] as of this encounter Care Teams Senior Director Insight Relationship Specialty Start Date End Date Jaz Myers MD [address] [place] [address] Drive [address] [place] [phone] PCP - General Internal Medicine 11/16/23 Radha Fox MD, S [address] [place] [address] [email or web address] Referring Physician Pulmonary Disease 06/14/24 Devyn Jay MD [address] [address] Pulmonary Disease 09/08/24 documented as of this encounter Additional Source Comments The information contained in this document represents components of the legal health record. It is not the complete legal health record.[facility]
--- OUTSIDE RECORDS SUMMARY | 2025-04-16 08:08 | XMS_ITS | Clinical Summary ---
Author Organization [facility] Address [address] [facility] [address] [place] [address] Phone Care Team Providers Care Public Information Coordinator Name Role Phone Jaz yMers MD Primary Care Provider [phone] Radha Fox MD, S Unavailable Devyn Jay MD Unavailable [phone] Allergies No known active allergies Medications warfarin [...] bronch washings have tested positive for covid. Ad Operations Intern saw ? Lesion on right vocal cord. [...] management of sarcoidosis (followed by pulmonology in [place]). Patient had been using supplemental oxygen increasingly, [...] dose until advised further by patient's primary tugboat mate -Goal SpO2 with supplemental oxygen > 90% and < 96% -Outpatient follow-up with tugboat mate in [place] Resolved Problems Problem Noted Date Diagnosed Date [...] Department Care Team Description 02/23/2025 Procedure Pass [facility] Endoscopy Department [address] [place] [address] 02/23/2025 Hospital Encounter [facility] Endoscopy Department [address] [place] [address] 02/16/2025 Refill [facility] [address] [place] [address] Matilda Mukherjee MD Medication Refill from Last [...] (08/03/2024 1:38 PM EDT) HCV Nonreactive Nonreactive [facility] 08/03/2024 1:38 PM EDT 08/03/2024 2:00 PM EDT us Melinda Epps MD LAB BLOOD BKR ORDERABLES Final R esult [facility] [address] [place] [address] * (ABNORMAL) Lipid panel (08/03/2024 1:38 PM EDT) CHOLESTEROL 253(H) <200 mg/dL [facility] TRIGLYCERIDES 255(H) 35 - 150 mg/dL [facility] HDL 100(H) 40 - 80 mg/dL [facility] CALCULATED LDL 102 50 - 129 mg/dL [facility] VLDL 51(H) <31 mg/dL [facility] CLINIC AL LABORATORIES CARDIAC RISK RATIO 2.5 0.0 - 4.0 [facility] 08/03/2024 1:38 PM EDT 08/03/2024 2:00 PM EDT us Melinda Epps MD LAB BLOOD BKR ORDERABLES Final R esult Performing Organization Address City/State/[facility] Co de Phone Number [facility] [address] [place] [address] from Last 3 Months or Most Recently Relevant to Health Maintenance [place] [address] [place] [address] [place] [place] [address] [address] [place] [address] [place] [address] [place] [address] [place] [place] [address] [address] [facility] ACO Advance Directives For more information, please contact: [phone] (9AM - 5PM [facility], Wednesday-Wednesday) Documents on File Type Date Recorded Patient Credit Clerk Expl anation Healthcare Proxy 11/22/2023 5:32 PM [...] Status Communicated To: Inpatient Attending Care Teams Public Information Coordinator Relationship Specialty Start Date End Date Po, Jaz Whalen MD [address] [place] [address] PCP - General Internal Medicine 11/16/23 Radha Fox MD, [facility] [address] [place] [address] 3 [place] [address] [email or web address] Referring Physician Pulmonary Disease 06/14/24 Devyn Jay MD [address] [place] [address] 200 [place] [address] Pulmonary Disease 09/08/24 Additional Source Comments The information contained in this document represents components of the legal health record. It is not the complete legal health record.[facility]
--- OUTSIDE RECORDS SUMMARY | 2025-04-16 08:08 | XMS_ITS | Encounter Summary ---
Author Organization [facility] Address [address] [facility] [address] [place] [address] Phone Care Team Providers Care Hog Tender Name Role Phone Jaz Myers MD Primary Care Provider [phone] Radha Fox MD, S Unavailable Devyn Jay MD Unavailable [phone] Encounter Details Date Type Department Care Team (Late st Contact Info) Description 05/24/2024 Transcribe Orders [facility] EKG [address] [place] [address] Jaz Myers MD [address] [place] [address] Social History Tobacco Use Types [...] documented as of this encounter Care Teams Hog Tender Relationship Specialty Start Date End Date Po, Jaz Whalen MD [address] [place] [address] Drive [address] [place] [address] PCP - General Internal Medicine 11/16/23 Radha Fox MD, [facility] [address] [place] [address] 3 [place] [address] [email or web address] Referring Physician Pulmonary Disease 06/14/24 Devyn Jay MD [address] [place] [address] 200 [place] [address] Pulmonary Disease 09/08/24 documented as of this encounter Additional Source Comments The information contained in this document represents components of the legal health record. It is not the complete legal health record.[facility]
--- OUTSIDE RECORDS SUMMARY | 2025-04-16 08:08 | XMS_ITS | Encounter Summary ---
Author Organization [facility] Address [address] [facility] [address] [place] [address] Phone Care Team Providers Care Resolute Professional Name Role Phone Jaz Myers MD Primary Care Provider [phone] Radha Fox MD, S Unavailable Devyn Jay MD Unavailable [phone] Encounter Details Date Type Department Care Team (Late st Contact Info) Description 05/19/2024 Procedure Pass [facility] [address] [place] [address] Social History Tobacco Use Types Packs/Day Years [...] documented as of this encounter Care Teams Resolute Professional Relationship Specialty Start Date End Date Jaz Myers MD [address] [place] [address] Drive [address] [place] [address] PCP - General Internal Medicine 11/16/23 Radha Fox MD, S [address] [place] [address] 3 [place] [address] [email or web address] Referring Physician Pulmonary Disease 06/14/24 Devyn Jay MD [address] [place] [address] 200 [place] [address] Pulmonary Disease 09/08/24 documented as of this encounter Additional Source Comments The information contained in this document represents components of the legal health record. It is not the complete legal health record.[facility]
[2025-04-16 08:10] LABS: Prothrombin Time Whole Bld POC 29.8 sec (11.1-13.5); ~PT, ~INR - Anti Coag Clinic 2.5 (0.9-1.1)
--- NOTE | 2025-04-16 08:14 | MHC.OFFVISCO ---
Intake Intake Visit Reasons: Anticoagulation Allergies No Known Allergies (No Known Allergies*) Allergy (Verified 04/16/25 08:04) Medication List - Last Reconciled 04/16/25 by Mami Springer RN albuterol sulfate 90 mcg/actuation 2 inhalations inhalation Q6H PRN 30 days ascorbic acid (vitamin C) ER 500 mg PO DAILY blood pressure monitor (Blood Pressure Kit) As directed calcium citrate 1,000 mg PO DAILY cetirizine 10 mg PO DAILY PRN chlorpheniramine maleate (Allergy Relief (chlorpheniramine)) 4 mg PO Q6H PRN cholecalciferol (vitamin D3) (Vitamin D3) 100 mcg (2 x 50 mcg (2,000 unit)) PO DAILY 30 days clotrimazole 1% 1 appl topical BID 4 weeks infliximab (Remicade) 336 mg IV Q4W 12 months nifedipine ER 30 mg PO DAILY nintedanib (Ofev) 150 mg PO Q12H nutritional supplements (Ensure) PO omeprazole 40 mg PO DAILY Oxygen Home Use As directed prednisolone acetate 1% (Pred Forte) 1 drp ophthalmic (eye) BEDTIME prednisone 10 mg PO QAM warfarin (Jantoven) 4 mg See Protocol PO BEDTIME Nursing Note INR: 2.5 in therapeutic range of 2-3 Medications and supplements reviewed No changes in health, diet, medications, or supplements, Denies any signs and symptoms of bleeding or bruising or clotting. 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
== END 2025-04-16 08:15 | disposition home or self-care (01) ==
LOC: HO.ACS 08:00
PROVIDERS: PCP Internal Medicine; Visit Provider Internal Medicine Medical Oncology
DX: Z79.01 Long term (current) use of anticoagulants (principal)

== ENCOUNTER → 2025-04-16 08:00 | Outpatient (BNVA) | payer OTHER, SELFPAY | PROVIDERS: PCP Internal Medicine; Visit Provider Internal Medicine Medical Oncology | DX: Z86.718 Personal history of other venous thrombosis and embolism (principal); Z51.81 Encounter for therapeutic drug level monitoring; Z79.01 Long term (current) use of anticoagulants | CPT/HCPCS: 85610; 99211 ==

== ENCOUNTER 2025-04-30 07:48 | Outpatient (AMB) | payer OTHER, SELFPAY ==
--- OUTSIDE RECORDS SUMMARY | 2024-11-27 06:40 | XMS_ITS ---
Author Organization [facility] Address [address] [place] [address] Care Team Providers Care Freight Separator Name Role Phone Jaz Myers MD Primary Care Provider Mason Castro [phone] REASON FOR VISIT screening colonoscopy Encounters Encounter Location Date Provider Diagnosis [facility] Out[facility] [address] [place] [phone] 11/27/2024 Mason Rock Plan Of Treatment No Information Progress Notes * NELLY OWENS EDOB:[birth year] (59 yo M)Acc No.[id number]:11/27/2024 COLON WITH MAC Patient: NELLY BRANHAM Provider: Vinicio Rock MD :1965 A ge:59 Y S ex:Male Date:11/27/2024 Address:[address] [place], [place] [phone] Pcp:Jaz Myers MD Subjective: * Chief Complaints: * S creening colonoscopy Billing Information: * Procedure Codes: * The named appointment provid er may or may not be the originator of this progress note, and it is not deemed complete until electronically signed by the appointment provider. Sign off status: Pending * Provider: Vinicio Rock MD Date: 0 11/27/2024 Generated for Bridgett gloria/Dipika/eTransmitting on: 1 07/01/2024 07:51 AM EST
--- OUTSIDE RECORDS SUMMARY | 2024-12-01 14:12 | XMS_ITS ---
Author Organization [facility] Address [address] [place] [address] Care Team Providers Care Automation Driver Name Role Phone Po Jaz ROBIN Primary Care Provider Mason Castro [phone] REASON FOR VISIT ? need to treat colitis on 11/27 colon Encounters Encounter Location Date Provider Diagnosis [facility] [address] [place] [address] 12/01/2024 [place] Plan Of Treatment No Information Progress Notes * NELLY OWENS EDOB:[birth year] (59 yo M)Acc No.[id number]:12/01/2024 Patient: NELLY BRANHAM :1965 A ge:59 Y S ex:Male Address:[address] [place], [address] Subjective: * Chief Complaints: * ? need to treat colitis on 11/27 colon * * Date:
--- OUTSIDE RECORDS SUMMARY | 2025-04-30 07:51 | XMS_ITS | Encounter Summary ---
Author Organization [facility] Address [address] [facility] [address] [place] [address] Phone Care Team Providers Care Clockmaker Apprentice Name Role Phone Jaz Myers MD Primary Care Provider [phone] Radha Fox MD, S Unavailable Devyn Jay MD Unavailable [phone] Encounter Details Date Type Department Care Team (Late st Contact Info) Description 11/16/2023 Procedure Pass [facility], Ct Scan - [address] [address] Social History Tobacco Use Types Packs/Day Years [...] documented as of this encounter Care Teams Clockmaker Apprentice Relationship Specialty Start Date End Date Jaz Myers MD [address] [place] [address] PCP - General Internal Medicine 11/16/23 Radha Fox MD, S [address] [facility] 3 [place] [address] [email or web address] Referring Physician Pulmonary Disease 06/14/24 Devyn aJy MD [address] [place] [address] 200 [place] [address] Pulmonary Disease 09/08/24 documented as of this encounter Additional Source Comments The information contained in this document represents components of the legal health record. It is not the complete legal health record.[facility]
--- OUTSIDE RECORDS SUMMARY | 2025-04-30 07:51 | XMS_ITS | Patient Health Record ---
Author Organization [facility] Address [address] [place] [address] Care Team Providers Care Pipe Fitter Welding Name Role Phone Jaz Myers MD Primary Care Provider Mason Castro [phone] Allergies No Known Allergies Results Component Value Reference Range Flag Notes Pathology (Not yet reviewed by provider) Interpretation: Performing Lab:[facility], [address] [place] [phone] Notes/Report: Prothrombin Time INR Reviewed date:11/28/2024 10:12:07 AM Interpretation: Performing Lab:[facility], [address] [place] [id number] Notes/Report: Prothrombin Time 11.8 10.9-12.4 SEC N [...] Miscellaneous: Marital status: Occupation: Works in a [employer] Section Notes: Nonsmoker; no sig alcohol Nonsmoker; no sig alcohol Nonsmoker; no sig alcohol Problems Problem Type SNOMED Code ICD Code Onset Dates Problem Status W/U Status Risk Notes Problem Colon cancer screening (277462814) Colon cancer screening (Z12.11) Active confirmed Problem Rectal bleeding (64275711) Rectal bleeding (K62.5) Active confirmed Problem History of adenomatous polyp of colon (418219487) History of adenomatous polyp of colon (Z86.010) Active confirmed Problem Preprocedural examination (358159422469551) Preprocedural examination (Z01.818) Active confirmed Problem Diverticulosis of colon (886789000) Diverticulosis of colon (K57.30) Active confirmed Vital Signs Temperature 97.8 degrees Fahrenheit 09/06/2024 Blood pressure diastolic 01 mm Hg 09/06/2024 Height 64 in 09/06/2024 Blood pressure systolic 001 mm Hg 09/06/2024 Weight 136 lbs 09/06/2024 BMI 23.34 kg/m2 09/06/2024 Procedures Procedure Date Ordered Date Performed Result Body Sit e COLONOSCOPY 09/06/2024 N/A Encounters Encounter Location Date Provider Diagnosis [facility] Outpatient [address] [place], [place] [id number] 11/27/2024 Mason [place] [facility] [address] [place] [address] 09/06/2024 Mason [place] History of adenomato us polyp of colon Z86.010 ; Preprocedural examination Z01.818 and Colon cancer screening Z12.11 [facility] [address] [place] [phone] 12/01/2024 Mason Rock [facility] [address] [place] [address] 09/06/2024 Mason [place] [facility] [address] [place] [address] 11/20/2024 Mason [place] Assessments Encounter Date Diagnosis [...] cleared for a potential lung transplant in [place]. As such I will plan to arrange [...] cleared for a potential lung transplant in [place]. As such I will plan to arrange [...] cleared for a potential lung transplant in [place]. As such I will plan to arrange [...] Insured Coverage Start Date Coverage End Date [facility] [address] [address] [place], [place] [id number] [phone] [id number] MAX OWENS Self - patient is the insured MEDICAID OF [employer] [address] [place] [address] [phone] [id number] MAX OWENS Self - patient is the [...] being followed by Dr. Da Silva at [facility] Pulmonary Department and the lung transplant center at [facility] in [place].He is currently on 2 L of nasal cannula 24 hours a day as of the August 2024 office visit. Surgical History Surgery Date(Month/Year) Hernia repair--umbilical 2017
--- OUTSIDE RECORDS SUMMARY | 2025-04-30 07:51 | XMS_ITS | Encounter Summary ---
Author Organization [facility] Address [address] [facility] [address] [place] [address] Phone Care Team Providers Care Property Maintenance Supervisor Name Role Phone Jaz Myers MD Primary Care Provider [phone] Radha Fox MD, S Unavailable Devyn Jay MD Unavailable Encounter Details Date Type Department Care Team (Late st Contact Info) Description 02/23/2025 Hospital Encounter [facility] Endoscopy Department 75 [place] [address] Social History Tobacco Use Types Packs/Day Years [...] documented as of this encounter Care Teams Property Maintenance Supervisor Relationship Specialty Start Date End Date Jaz Myers MD [address] [place] [address] Drive [address] [place] [address] PCP - General Internal Medicine 11/16/23 Radha Fox MD, S [address] [place] [address] 3 [place] [address] Referring Physician Pulmonary Disease 06/14/24 Devyn Jay MD [address] [place] [address] 200 [place] [address] Pulmonary Disease 09/08/24 documented as of this encounter Additional Source Comments The information contained in this document represents components of the legal health record. It is not the complete legal health record.[facility]
--- OUTSIDE RECORDS SUMMARY | 2025-04-30 07:51 | XMS_ITS | Encounter Summary ---
Author Organization [facility] Address [address] [facility] [address] [place] [address] Phone Care Team Providers Care Orthotic Fitter Name Role Phone Jaz Myers MD Primary Care Provider [phone] Radha Fox MD, S Unavailable Devyn Jay MD Unavailable [phone] Encounter Details Date Type Department Care Team (Late st Contact Info) Description 11/17/2023 Procedure Pass [facility] Endoscopy Admitting Dept Virtual Department 30 [place] [address] Social History Tobacco Use Types Packs/Day Years [...] documented as of this encounter Care Teams Orthotic Fitter Relationship Specialty Start Date End Date Jaz Myers MD [address] [place] [address] PCP - General Internal Medicine 11/16/23 Radha oFx MD, S [address] [facility] 3 [place] [address] [email or web address] Referring Physician Pulmonary Disease 06/14/24 Devyn Jay MD [address] [place] [address] 200 [place] [address] Pulmonary Disease 09/08/24 documented as of this encounter Additional Source Comments The information contained in this document represents components of the legal health record. It is not the complete legal health record.[facility]
--- OUTSIDE RECORDS SUMMARY | 2025-04-30 07:51 | XMS_ITS | Encounter Summary ---
Author Organization [facility] Address [address] [facility] [address] [place] [address] Phone Care Team Providers Care Ict Support Technicians Name Role Phone Jaz Myers MD Primary Care Provider [phone] Radha Fox MD, S Unavailable Devyn Jay MD Unavailable [phone] Encounter Details Date Type Department Care Team (Late st Contact Info) Description 02/23/2025 Procedure Pass [facility] Endoscopy Department 75 [place] [address] Social History Tobacco Use Types Packs/Day Years [...] documented as of this encounter Care Teams Ict Support Technicians Relationship Specialty Start Date End Date Jaz Myers MD [address] [place] [address] Drive [address] [place] [address] PCP - General Internal Medicine 11/16/23 Radha Fox MD, S [address] [place] [address] 3 [place] [address] Referring Physician Pulmonary Disease 06/14/24 Devyn Jay MD [address] [place] [address] 200 [place] [address] Pulmonary Disease 09/08/24 documented as of this encounter Additional Source Comments The information contained in this document represents components of the legal health record. It is not the complete legal health record.[facility]
--- OUTSIDE RECORDS SUMMARY | 2025-04-30 07:52 | XMS_ITS | Encounter Summary ---
Author Organization [facility] Address [address] [facility] [address] [place] [address] Phone Care Team Providers Care Independent Film Maker Name Role Phone Jaz Myers MD Primary Care Provider [phone] Radha Fox MD, S Unavailable Devyn Jay MD Unavailable [phone] Reason for Referral * MRI/CAT Scan - Closed Specialty Diagnoses / Procedures Referred By Contac t Referred To Contact Radiology Diagnoses Interstitial lung disease Procedures NC PET/CT Cardiac Sarcoid PET/SPECT NC SPECT MYOCARDIAL VIABILITY CHG MYOCRD IMG PET METAB EVAL SINGLE STUDY CNCRNT CT CHG MYOCARDIAL SPECT SINGLE STUDY AT REST OR STRESS Radha Fox MD, S [address] Phone: tel: fax: [email or web address] Referral ID Status Reason Start Date Expiration Date Visits Re quested Visits Authorized [id number] Closed 06/21/2024 08/29/2024 1 1 Encounter Details Date Type Department Care Team (Latest Contact Info) Description 06/16/2024 Ancillary Orders [facility] Interstitial Lung Disease and [facility]omyomatosis [facility] [address] [place] [address] Radha Fox MD, S [address] [address] [email or web address] Interstitial lung disease (Primary Dx) Social History [...] documented as of this encounter Care Teams Independent Film Maker Relationship Specialty Start Date End Date Po, Jaz Whalen MD [address] [place] [address] [address] [place] [phone] PCP - General Internal Medicine 11/16/23 Radha Fox MD, S [address] [place] [address] Referring Physician Pulmonary Disease 06/14/24 Devyn Jay MD [address] [place] [address] Pulmonary Disease 09/08/24 documented as of this encounter Additional Source Comments The information contained in this document represents components of the legal health record. It is not the complete legal health record.[facility]
--- OUTSIDE RECORDS SUMMARY | 2025-04-30 07:52 | XMS_ITS | Encounter Summary ---
Author Organization [facility] Address [address] [facility] [address] [place] [address] Phone Care Team Providers Care Private Duty Aide Name Role Phone Jaz Myers MD Primary Care Provider [phone] Radha Fox MD, S Unavailable Devyn Jay MD Unavailable [phone] Encounter Details Date Type Department Care Team (Late st Contact Info) Description 05/19/2024 Procedure Pass [facility] 70 [place] [address] Social History Tobacco Use Types Packs/Day Years [...] documented as of this encounter Care Teams Private Duty Aide Relationship Specialty Start Date End Date Jaz Myers MD [address] [place] [address] Drive [address] [place] [address] PCP - General Internal Medicine 11/16/23 Radha Fox MD, S [address] [place] [address] 3 [place] [address] Referring Physician Pulmonary Disease 06/14/24 Devyn Jay MD [address] [place] [address] 200 [place] [address] Pulmonary Disease 09/08/24 documented as of this encounter Additional Source Comments The information contained in this document represents components of the legal health record. It is not the complete legal health record.[facility]
--- OUTSIDE RECORDS SUMMARY | 2025-04-30 07:52 | XMS_ITS | Encounter Summary ---
Author Organization [facility] Address [address] [facility] [address] [place] [address] Phone Care Team Providers Care Citrix Consultant Name Role Phone Jaz Myers MD Primary Care Provider [phone] Radha Fox MD, S Unavailable Devyn Jay MD Unavailable [phone] Encounter Details Date Type Department Care Team (Late st Contact Info) Description 05/19/2024 Procedure Pass [facility] 75 [place] [address] Social History Tobacco Use Types Packs/Day Years [...] documented as of this encounter Care Teams Citrix Consultant Relationship Specialty Start Date End Date Jaz Myers MD [address] [place] [address] Drive [address] [place] [address] PCP - General Internal Medicine 11/16/23 Radha Fox MD, S [address] [place] [address] 3 [place] [address] [email or web address] Referring Physician Pulmonary Disease 06/14/24 Devyn Jay MD [address] [place] [address] 200 [place] [address] Pulmonary Disease 09/08/24 documented as of this encounter Additional Source Comments The information contained in this document represents components of the legal health record. It is not the complete legal health record.[facility]
--- OUTSIDE RECORDS SUMMARY | 2025-04-30 07:52 | XMS_ITS | Encounter Summary ---
Author Organization [facility] Address [address] [facility] [address] [place] [address] Phone Care Team Providers Care Bell Person Name Role Phone Jaz Myers MD Primary Care Provider [phone] Radha Fox MD, S Unavailable Devyn Jay MD Unavailable [phone] Encounter Details Date Type Department Care Team (Late st Contact Info) Description 05/24/2024 Transcribe Orders [facility] EKG [address] [place] [address] Jaz Myers MD [address] [place] [address] Social History Tobacco Use Types [...] documented as of this encounter Care Teams Bell Person Relationship Specialty Start Date End Date Po, Jaz Whalen MD [address] [place] [address] Drive [address] [place] [address] PCP - General Internal Medicine 11/16/23 Radha Fox MD, [facility] [address] [place] [address] 3 [place] [address] [email or web address] Referring Physician Pulmonary Disease 06/14/24 Devyn Jay MD [address] [place] [address] 200 [place] [address] Pulmonary Disease 09/08/24 documented as of this encounter Additional Source Comments The information contained in this document represents components of the legal health record. It is not the complete legal health record.[facility]
--- OUTSIDE RECORDS SUMMARY | 2025-04-30 07:52 | XMS_ITS | Clinical Summary ---
Author Organization [facility] Address [address] [place] [address] Phone Care Team Providers Care Pianos And Organs Salesperson Name Role Phone Jaz Myers MD Primary Care Provider [phone] Radha Fox MD, S Unavailable Devyn Jay MD Unavailable Allergies No known active allergies Medications warfarin [...] bronch washings have tested positive for covid. Buffer Nickel saw ? Lesion on right vocal cord. [...] management of sarcoidosis (followed by pulmonology in [place]). Patient had been using supplemental oxygen increasingly, [...] dose until advised further by patient's primary clean rice grader and reel tender -Goal SpO2 with supplemental oxygen > 90% and < 96% -Outpatient follow-up with clean rice grader and reel tender in [place] Resolved Problems Problem Noted Date Diagnosed Date [...] Department Care Team Description 02/23/2025 Procedure Pass [facility] Endoscopy Department [address] [place] [address] 02/23/2025 Hospital Encounter [facility] Endoscopy Department [address] [place] [address] 02/16/2025 Refill [facility] [address] [place] [address] Matilda Mukherjee MD Medication Refill from Last [...] (08/03/2024 1:38 PM EDT) HCV Nonreactive Nonreactive [facility] 08/03/2024 1:38 PM EDT 08/03/2024 2:00 PM EDT us Melinda Epps MD LAB BLOOD BKR ORDERABLES Final R esult [facility] [address] [place] [phone] * (ABNORMAL) Lipid panel (08/03/2024 1:38 PM EDT) CHOLESTEROL 253(H) <200 mg/dL [facility] TRIGLYCERIDES 255(H) 35 - 150 mg/dL [facility] HDL 100(H) 40 - 80 mg/dL [facility] CALCULATED LDL 102 50 - 129 mg/dL [facility] VLDL 51(H) <31 mg/dL [facility] AL [facility] CARDIAC RISK RATIO 2.5 0.0 - 4.0 [facility] 08/03/2024 1:38 PM EDT 08/03/2024 2:00 PM EDT us Melinda Epps MD LAB BLOOD BKR ORDERABLES Final R esult Performing Organization Address City/State/[facility] Co de Phone Number [facility] [address] [place] [address] from Last 3 Months or Most Recently Relevant to Health Maintenance [place] [address] [place] [address] [address] [place] [address] [address] [place] [address] [place] [address] [place] [address] ACO [facility] [place] [place] [address] ACO Advance Directives For more information, please contact: [phone] (9AM - 5PM Karla/[facility], Wednesday-Wednesday) Documents on File Type Date Recorded 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 Energy 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 Healthcare Proxy 11/22/2023 5:32 PM [...] Status Communicated To: Inpatient Attending Care Teams Pianos And Organs Salesperson Relationship Specialty Start Date End Date Po, Jaz Whalen MD [address] [place] [address] PCP - General Internal Medicine 11/16/23 Radha Fox MD, S [address] [place] [address] 3 [place] [address] [email or web address] Referring Physician Pulmonary Disease 06/14/24 Devyn Jay MD [address] [place] [address] [address] [place] [address] Pulmonary Disease 09/08/24 Additional Source Comments The information contained in this document represents components of the legal health record. It is not the complete legal health record.[facility]
[2025-04-30 08:10] LABS: Prothrombin Time Whole Bld POC 22.9 sec (11.1-13.5); ~PT, ~INR - Anti Coag Clinic 1.9 (0.9-1.1)
--- NOTE | 2025-04-30 08:12 | MHC.OFFVISCO ---
Intake Intake Visit Reasons: Anticoagulation Allergies No Known Allergies (No Known Allergies*) Allergy (Verified 04/30/25 08:06) Medication List - Last Reconciled 04/30/25 by Mami Springer RN albuterol sulfate 90 mcg/actuation 2 inhalations inhalation Q6H PRN 30 days ascorbic acid (vitamin C) ER 500 mg PO DAILY blood pressure monitor (Blood Pressure Kit) As directed calcium citrate 1,000 mg PO DAILY cetirizine 10 mg PO DAILY PRN chlorpheniramine maleate (Allergy Relief (chlorpheniramine)) 4 mg PO Q6H PRN cholecalciferol (vitamin D3) (Vitamin D3) 100 mcg (2 x 50 mcg (2,000 unit)) PO DAILY 30 days clotrimazole 1% 1 appl topical BID 4 weeks infliximab (Remicade) 336 mg IV Q4W 12 months nifedipine ER 30 mg PO DAILY nintedanib (Ofev) 150 mg PO Q12H nutritional supplements (Ensure) PO omeprazole 40 mg PO DAILY Oxygen Home Use As directed prednisolone acetate 1% (Pred Forte) 1 drp ophthalmic (eye) BEDTIME prednisone 10 mg PO QAM warfarin (Jantoven) 4 mg See Protocol PO BEDTIME Nursing Note INR: 1.9?out of therapeutic range of 2-3 Medications and supplements reviewed Patient status: no changes Medications or supplements: no changes Diet: usual diet for pt Denies any signs and symptoms of bleeding or clotting or unusual bruising Bleeding, bruising, clotting discussed Nutritional guidance given: to avoid greens today Dose: increase today's dose to 6mg (4mg) then increase weekly dose to 4mg daily F/U INR Date: 1 week?? Patient verbalizing understanding of instructions given. Anti-Coag Initial Assessment Social Hx Patient Tobacco Use Status: Never used Tobacco alcohol intake: current Alcohol intake frequency: does not drink Coding Level of Care Code Est Patient Level 1 Diagnoses Current use of anticoagulant therapy Z79.01 Assessment & Plan Assessment & Plan (1) Current use of anticoagulant therapy: Code(s): Z79.01 - prison (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
== END 2025-04-30 08:20 | disposition home or self-care (01) ==
LOC: HO.ACS 07:48
PROVIDERS: PCP Internal Medicine; Visit Provider Internal Medicine Medical Oncology
DX: Z79.01 Long term (current) use of anticoagulants (principal)

== ENCOUNTER → 2025-04-30 07:48 | Outpatient (BNVA) | payer OTHER, SELFPAY | PROVIDERS: PCP Internal Medicine; Visit Provider Internal Medicine Medical Oncology | DX: I82.402 Acute embolism and thrombosis of unspecified deep veins of left lower extremity (principal); Z79.01 Long term (current) use of anticoagulants; Z51.81 Encounter for therapeutic drug level monitoring | CPT/HCPCS: 85610; 99211 ==

== ENCOUNTER 2025-05-08 08:25 | Outpatient (AMB) | payer OTHER, SELFPAY ==
--- OUTSIDE RECORDS SUMMARY | 2024-11-27 06:40 | XMS_ITS ---
Author Organization [facility] Address [address] [place] [address] Care Team Providers Care Mail Reader Name Role Phone Jaz Myers MD Primary Care Provider Mason Castro [phone] REASON FOR VISIT screening colonoscopy Encounters Encounter Location Date Provider Diagnosis [facility] [place] [address] [place] [phone] 11/27/2024 Mason Rock Plan Of Treatment No Information Progress Notes * NELLY OWENS EDOB:[birth year] (59 yo M)Acc No.[id number]:11/27/2024 COLON WITH MAC Patient: NELLY BRANHAM Provider: Vinicio Rock MD :1965 A ge:59 Y S ex:Male Date:11/27/2024 Address:[address] [place], [place] [phone] Pcp:Jaz Myers MD Subjective: * Chief Complaints: * S creening colonoscopy Billing Information: * Procedure Codes: * The named appointment provid er may or may not be the originator of this progress note, and it is not deemed complete until electronically signed by the appointment provider. Sign off status: Pending * Provider: Vinicio Rock MD Date: 0 11/27/2024 Generated for Bridgett gloria/Dipika/eTsanfordsmitting on: 1 10:01 AM EST
--- OUTSIDE RECORDS SUMMARY | 2024-12-01 14:12 | XMS_ITS ---
Author Organization [facility] Address [address] [place] [address] Care Team Providers Care Websphere Architect Name Role Phone Po Jaz ROBIN Primary Care Provider Mason Castro [phone] REASON FOR VISIT ? need to treat colitis on 11/27 colon Encounters Encounter Location Date Provider Diagnosis [facility] [address] [place] [address] 12/01/2024 [place] Plan Of Treatment No Information Progress Notes * NELLY OWENS EDOB:[birth year] (59 yo M)Acc No.[id number]:12/01/2024 Patient: NELLY BRANHAM :1965 A ge:59 Y S ex:Male Address:[address] [place], [address] Subjective: * Chief Complaints: * ? need to treat colitis on 11/27 colon * * Date:
--- NOTE | 2025-05-08 08:36 | MHC.OFFVISCO ---
Intake Intake Visit Reasons: Anticoagulation Allergies No Known Allergies (No Known Allergies*) Allergy (Verified 05/08/25 08:32) Medication List - Last Reconciled 05/08/25 by Mami Springer RN albuterol sulfate 90 mcg/actuation 2 inhalations inhalation Q6H PRN 30 days ascorbic acid (vitamin C) ER 500 mg PO DAILY blood pressure monitor (Blood Pressure Kit) As directed calcium citrate 1,000 mg PO DAILY cetirizine 10 mg PO DAILY PRN chlorpheniramine maleate (Allergy Relief (chlorpheniramine)) 4 mg PO Q6H PRN cholecalciferol (vitamin D3) (Vitamin D3) 100 mcg (2 x 50 mcg (2,000 unit)) PO DAILY 30 days clotrimazole 1% 1 appl topical BID 4 weeks infliximab (Remicade) 336 mg IV Q4W 12 months nifedipine ER 30 mg PO DAILY nintedanib (Ofev) 150 mg PO Q12H nutritional supplements (Ensure) PO omeprazole 40 mg PO DAILY Oxygen Home Use As directed prednisolone acetate 1% (Pred Forte) 1 drp ophthalmic (eye) BEDTIME prednisone 10 mg PO QAM warfarin (Jantoven) 4 mg See Protocol PO BEDTIME Nursing Note INR: 2.7 in therapeutic range of 2-3 Medications and supplements reviewed No changes in health, diet, medications, or supplements, Denies any signs and symptoms of bleeding or bruising or clotting. Bleeding, bruising, clotting discussed Nutritional guidance given Dose: 4mg daily F/U INR: 1 week Patient verbalizes understanding of instructions given Anti-Coag Initial Assessment Social Hx Patient Tobacco Use Status: Never used Tobacco alcohol intake: current Alcohol intake frequency: does not drink Coding Level of Care Code Est Patient Level 1 Diagnoses Current use of anticoagulant therapy Z79.01 Results AMB INR Fingerstick AMB INR Fingerstick 2.7 Last Edit by Mami Springer RN on 05/08/25 08:35 interface delay Assessment & Plan Assessment & Plan (1) Current use of anticoagulant therapy: Code(s): 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
[2025-05-08 08:43] LABS: Prothrombin Time Whole Bld POC 32.2 sec (11.1-13.5); ~PT, ~INR - Anti Coag Clinic 2.7 (0.9-1.1)
--- OUTSIDE RECORDS SUMMARY | 2025-05-08 10:01 | XMS_ITS | Encounter Summary ---
Author Organization [facility] Address [address] [place] [address] Phone Care Team Providers Care Installations Inspector Name Role Phone Jaz Myers MD Primary Care Provider [phone] Radha Fox MD, S Unavailable Devyn Jay MD Unavailable [phone] Encounter Details Date Type Department Care Team (Late st Contact Info) Description 11/17/2023 Procedure Pass [facility] Endoscopy Admitting Dept Virtual Department [address] [place] [address] Social History Tobacco Use Types Packs/Day Years [...] documented as of this encounter Care Teams Installations Inspector Relationship Specialty Start Date End Date Jaz Myers MD [address] [place] [address] PCP - General Internal Medicine 11/16/23 Radha Fox MD, S [address] [facility] 3 [place] [address] [email or web address] Referring Physician Pulmonary Disease 06/14/24 Devyn Jay MD [address] [place] [address] 200 [place] [address] Pulmonary Disease 09/08/24 documented as of this encounter Additional Source Comments The information contained in this document represents components of the legal health record. It is not the complete legal health record.[facility]
--- OUTSIDE RECORDS SUMMARY | 2025-05-08 10:01 | XMS_ITS | Encounter Summary ---
Author Organization [facility] Address [address] [facility] [facility] [address] [place] [address] Phone Care Team Providers Care Manager Army Name Role Phone Jaz Myers MD Primary Care Provider [phone] Radha Fox MD, S Unavailable Devyn Jay MD Unavailable [phone] Encounter Details Date Type Department Care Team (Late st Contact Info) Description 02/23/2025 Procedure Pass [facility] Endoscopy Department [address] [place] [address] Social History Tobacco Use Types Packs/Day Years [...] as of this encounter Care Teams Manager Army Relationship Specialty Start Date End Date Jaz Myers MD [address] [place] [address] Drive [address] [place] [address] PCP - General Internal Medicine 11/16/23 Radha Fox MD, S [address] [place] [address] 3 [place] [address] Referring Physician Pulmonary Disease 06/14/24 Devyn Jay MD [address] [place] [address] 200 [place] [address] Pulmonary Disease 09/08/24 documented as of this encounter Additional Source Comments The information contained in this document represents components of the legal health record. It is not the complete legal health record.[facility]
--- OUTSIDE RECORDS SUMMARY | 2025-05-08 10:01 | XMS_ITS | Encounter Summary ---
Author Organization [facility] Address [address] [facility] [address] [place] [address] Phone Care Team Providers Care Program Schedule Clerk Name Role Phone Jaz Myers MD Primary Care Provider [phone] Radha Fox MD, S Unavailable Devyn Jay MD Unavailable [phone] Encounter Details Date Type Department Care Team (Late st Contact Info) Description 02/23/2025 Hospital Encounter [facility] Endoscopy Department [address] [place] [address] Social History Tobacco Use Types Packs/Day Years [...] documented as of this encounter Care Teams Program Schedule Clerk Relationship Specialty Start Date End Date Jaz Myers MD [address] [place] [address] Drive [address] [place] [address] PCP - General Internal Medicine 11/16/23 Radha Fox MD, S [address] [place] [address] 3 [place] [address] Referring Physician Pulmonary Disease 06/14/24 Devyn Jay MD [address] [place] [address] 200 [place] [address] Pulmonary Disease 09/08/24 documented as of this encounter Additional Source Comments The information contained in this document represents components of the legal health record. It is not the complete legal health record.[facility]
--- OUTSIDE RECORDS SUMMARY | 2025-05-08 10:02 | XMS_ITS | Encounter Summary ---
Author Organization [facility] Address [address] [place] [address] Phone Care Team Providers Care General Superintendent Name Role Phone Jaz Myers MD Primary Care Provider [phone] Radha Fox MD, S Unavailable Devyn Jay MD Unavailable [phone] Encounter Details Date Type Department Care Team (Late st Contact Info) Description 11/16/2023 Procedure Pass [facility] Ct Scan - [address] [address] Social History Tobacco Use Types Packs/Day Years [...] documented as of this encounter Care Teams General Superintendent Relationship Specialty Start Date End Date Jaz Myers MD [address] [place] [address] PCP - General Internal Medicine 11/16/23 Radha Fox MD, S [address] [facility] 3 [place] [address] [email or web address] Referring Physician Pulmonary Disease 06/14/24 Devyn Jay MD [address] [place] [address] 200 [place] [address] Pulmonary Disease 09/08/24 documented as of this encounter Additional Source Comments The information contained in this document represents components of the legal health record. It is not the complete legal health record.[facility]
--- OUTSIDE RECORDS SUMMARY | 2025-05-08 10:02 | XMS_ITS | Encounter Summary ---
Author Organization [facility] Address [address] [facility] [address] [place] [address] Phone Care Team Providers Care Honeycomb Blanket Maker Name Role Phone Jaz Myers MD Primary Care Provider [phone] Radha Fox MD, S Unavailable Devyn Jay MD Unavailable [phone] Reason for Referral * MRI/CAT Scan - Closed Specialty Diagnoses / Procedures Referred By Contac t Referred To Contact Radiology Diagnoses Interstitial lung disease Procedures NC PET/CT Cardiac Sarcoid PET/SPECT NC SPECT MYOCARDIAL VIABILITY CHG MYOCRD IMG PET METAB EVAL SINGLE STUDY CNCRNT CT CHG MYOCARDIAL SPECT SINGLE STUDY AT REST OR STRESS Radha Fox MD, S [address] Phone: tel: fax: [email or web address] Referral ID Status Reason Start Date Expiration Date Visits Re quested Visits Authorized [id number] Closed 06/21/2024 08/29/2024 1 1 Encounter Details Date Type Department Care Team (Latest Contact Info) Description 06/16/2024 Ancillary Orders [facility] Inter[facility] [address] [place] [address] Radha Fox MD, S [address] [address] [email or web address] Interstitial lung disease (Primary Dx) [...] documented as of this encounter Care Teams Honeycomb Blanket Maker Relationship Specialty Start Date End Date Po, Jaz Whalen MD [address] [place] [address] Drive [address] [place] [phone] PCP - General Internal Medicine 11/16/23 Radha Fox MD, S [address] [place] [address] Referring Physician Pulmonary Disease 06/14/24 Devyn Jay MD [address] [place] [address] Pulmonary Disease 09/08/24 documented as of this encounter Additional Source Comments The information contained in this document represents components of the legal health record. It is not the complete legal health record.[facility]
--- OUTSIDE RECORDS SUMMARY | 2025-05-08 10:02 | XMS_ITS | Encounter Summary ---
Author Organization [facility] Address [address] [facility] [address] [place] [address] Phone Care Team Providers Care In Home Baby Sitter Name Role Phone Jaz Myers MD Primary Care Provider Radha Fox MD, S Unavailable Devyn Jay MD Unavailable [phone] Encounter Details Date Type Department Care Team (Late st Contact Info) Description 05/19/2024 Procedure Pass [facility] [address] [place] [address] Social History Tobacco Use Types Packs/Day Years [...] documented as of this encounter Care Teams In Home Baby Sitter Relationship Specialty Start Date End Date Jaz Myers MD [address] [place] [address] Drive [address] [place] [address] PCP - General Internal Medicine 11/16/23 Radha Fox MD, S [address] [place] [address] 3 [place] [address] Referring Physician Pulmonary Disease 06/14/24 Devyn Jay MD [address] [place] [address] 200 [place] [address] Pulmonary Disease 09/08/24 documented as of this encounter Additional Source Comments The information contained in this document represents components of the legal health record. It is not the complete legal health record.[facility]
--- OUTSIDE RECORDS SUMMARY | 2025-05-08 10:02 | XMS_ITS | Encounter Summary ---
Author Organization [facility] Address [address] [facility] [address] [place] [address] Phone Care Team Providers Care Tub Washer Name Role Phone Jaz Myers MD Primary Care Provider [phone] Radha Fox MD, S Unavailable Devyn Jay MD Unavailable [phone] Encounter Details Date Type Department Care Team (Late st Contact Info) Description 05/19/2024 Procedure Pass [facility] [address] [place] [address] Social History Tobacco Use Types Packs/Day Years [...] documented as of this encounter Care Teams Tub Washer Relationship Specialty Start Date End Date Jaz Myers MD [address] [place] [address] Drive [address] [place] [address] PCP - General Internal Medicine 11/16/23 Radha Fox MD, S [address] [place] [address] 3 [place] [address] [email or web address] Referring Physician Pulmonary Disease 06/14/24 Devyn Jay MD [address] [place] [address] 200 [place] [address] Pulmonary Disease 09/08/24 documented as of this encounter Additional Source Comments The information contained in this document represents components of the legal health record. It is not the complete legal health record.[facility]
--- OUTSIDE RECORDS SUMMARY | 2025-05-08 10:02 | XMS_ITS | Encounter Summary ---
Author Organization [facility] Address [address] [facility] [address] [place] [address] Phone Care Team Providers Care Zyglo Inspector Name Role Phone Jaz Myers MD Primary Care Provider [phone] Radha Fox MD, S Unavailable Devyn Jay MD Unavailable [phone] Encounter Details Date Type Department Care Team (Late st Contact Info) Description 05/24/2024 Transcribe Orders [facility] EKG [address] [place] [address] Jaz Myers MD [address] [place] [address] Social History Tobacco Use Types [...] documented as of this encounter Care Teams Zyglo Inspector Relationship Specialty Start Date End Date Po, Jaz Whalen MD [address] [place] [address] Drive [address] [place] [address] PCP - General Internal Medicine 11/16/23 Radha Fox MD, [facility] [address] [place] [address] 3 [place] [address] [email or web address] Referring Physician Pulmonary Disease 06/14/24 Devyn Jay MD [address] [place] [address] 200 [place] [address] Pulmonary Disease 09/08/24 documented as of this encounter Additional Source Comments The information contained in this document represents components of the legal health record. It is not the complete legal health record.[facility]
--- OUTSIDE RECORDS SUMMARY | 2025-05-08 10:02 | XMS_ITS | Patient Health Record ---
Author Organization [facility] Address [address] [place] [address] Care Team Providers Care Microgrinder Operator Name Role Phone Jaz Myers MD Primary Care Provider Mason Castro [phone] Allergies No Known Allergies Results Component Value Reference Range Flag Notes Pathology (Not yet reviewed by provider) Interpretation: Performing Lab:[facility], [address] [place] [phone] Notes/Report: Prothrombin Time INR Reviewed date:11/28/2024 10:12:07 AM Interpretation: Performing Lab:[facility], [address] [place] [phone] Notes/Report: Prothrombin Time 11.8 10.9-12.4 SEC N [...] Miscellaneous: Marital status: Occupation: Works in a [employer] Section Notes: Nonsmoker; no sig alcohol Nonsmoker; no sig alcohol Nonsmoker; no sig alcohol Problems Problem Type SNOMED Code ICD Code Onset Dates Problem Status W/U Status Risk Notes Problem Colon cancer screening (001062945) Colon cancer screening (Z12.11) Active confirmed Problem Rectal bleeding (74691417) Rectal bleeding (K62.5) Active confirmed Problem History of adenomatous polyp of colon (706629239) History of adenomatous polyp of colon (Z86.010) Active confirmed Problem Preprocedural examination (150409244629338) Preprocedural examination (Z01.818) Active confirmed Problem Diverticulosis of colon (950383637) Diverticulosis of colon (K57.30) Active confirmed Vital Signs Temperature 97.8 degrees Fahrenheit 09/06/2024 Blood pressure diastolic 01 mm Hg 09/06/2024 Height 64 in 09/06/2024 Blood pressure systolic 001 mm Hg 09/06/2024 Weight 136 lbs 09/06/2024 BMI 23.34 kg/m2 09/06/2024 Procedures Procedure Date Ordered Date Performed Result Body Sit e COLONOSCOPY 09/06/2024 N/A Encounters Encounter Location Date Provider Diagnosis [facility] Outpatient [address] [place], [place] [id number] 11/27/2024 [place] [facility] [address] [place] [phone] 09/06/2024 Mason [place] History of adenomato us polyp of colon Z86.010 ; Preprocedural examination Z01.818 and Colon cancer screening Z12.11 [facility] [address] [place] [phone] 12/01/2024 Mason [place] [facility] [address] [place] [phone] 09/06/2024 Mason [place] [facility] [address] [place] [phone] 11/20/2024 Mason [place] Assessments Encounter Date Diagnosis [...] cleared for a potential lung transplant in [place]. As such I will plan to arrange [...] cleared for a potential lung transplant in [place]. As such I will plan to arrange [...] cleared for a potential lung transplant in [place]. As such I will plan to arrange [...] Coverage End Date [facility] [address] [address] [place], [place] [phone] [id number] MAX OWENS Self - patient is the insured [place] [address] [place] [address] [phone] [id number] MAX OWENS Self - patient is the [...] being followed by Dr. Da Silva at [facility] Pulmonary Department and the lung transplant center at [facility] in [place].He is currently on 2 L of nasal cannula 24 hours a day as of the August 2024 office visit. Surgical History Surgery Date(Month/Year) Hernia repair--umbilical 2017
--- OUTSIDE RECORDS SUMMARY | 2025-05-08 10:02 | XMS_ITS | Clinical Summary ---
Author Organization [facility] Address [address] [place] [address] Phone Care Team Providers Care Resource Conservation Specialist Name Role Phone Jaz Myers MD Primary Care Provider [phone] Radha Fox MD, S Unavailable Devyn Jay MD Unavailable [phone] Allergies No known active allergies Medications warfarin [...] bronch washings have tested positive for covid. Codifier saw ? Lesion on right vocal cord. [...] management of sarcoidosis (followed by pulmonology in [place]). Patient had been using supplemental oxygen increasingly, [...] dose until advised further by patient's primary icer air conditioning -Goal SpO2 with supplemental oxygen > 90% and < 96% -Outpatient follow-up with [facility] air conditioning in [place] Resolved Problems Problem Noted Date Diagnosed Date [...] Department Care Team Description 02/23/[address] [facility] Endoscopy Department [address] [place] [address] 02/23/[address] [facility] Endoscopy Department [address] [place] [address] 02/16/2025 Refill [facility] [address] [place] [address] Matilda Mukherjee MD Medication Refill from Last [...] (08/03/2024 1:38 PM EDT) HCV Nonreactive Nonreactive [facility] 08/03/2024 1:38 PM EDT 08/03/2024 2:00 PM EDT us Melinda Epps MD LAB BLOOD BKR ORDERABLES Final R esult [facility] [address] [place] [id number] * (ABNORMAL) Lipid panel (08/03/2024 1:38 PM EDT) CHOLESTEROL 253(H) <200 mg/dL [facility] TRIGLYCERIDES 255(H) 35 - 150 mg/dL [facility] HDL 100(H) 40 - 80 mg/dL [facility] CALCULATED LDL 102 50 - 129 mg/dL [facility] VLDL 51(H) <31 mg/dL [facility] CARDIAC RISK RATIO 2.5 0.0 - 4.0 [facility] 08/03/2024 1:38 PM EDT 08/03/2024 2:00 PM EDT us Melinda Epps MD LAB BLOOD BKR ORDERABLES Final R esult Performing Organization Address City/State/[facility] Co de Phone Number [facility] [address] [place] [address] from Last 3 Months or Most Recently Relevant to Health Maintenance [place] [address] [place] [address] [place] [address] [place] [address] [place] [address] [place] [address] [place] [address] [employer] [facility] [place] [address] [address] [place] [address] ACO Advance Directives For more information, please contact: [phone] (9AM - 5PM Karla/[facility], Wednesday-Wednesday) Documents on File Type Date Recorded Patient Preschool Adviser Expl anation Healthcare Proxy 11/22/2023 5:32 PM [...] Status Communicated To: Inpatient Attending Care Teams Resource Conservation Specialist Relationship Specialty Start Date End Date Po, Jaz Whalen MD [address] [place] [address] PCP - General Internal Medicine 11/16/23 Radha Fox MD, S [address] [place] [address] [address] [place] [address] [email or web address] Referring Physician Pulmonary Disease 06/14/24 Devyn Jay MD [address] [place] [address] [address] [place] [address] Pulmonary Disease 09/08/24 Additional Source Comments The information contained in this document represents components of the legal health record. It is not the complete legal health record.[facility]
== END 2025-05-08 08:40 | disposition home or self-care (01) ==
LOC: HO.ACS 08:25
PROVIDERS: PCP Internal Medicine; Visit Provider Internal Medicine Medical Oncology
DX: Z79.01 Long term (current) use of anticoagulants (principal)

== ENCOUNTER → 2025-05-08 08:25 | Outpatient (BNVA) | payer OTHER, SELFPAY | PROVIDERS: PCP Internal Medicine; Visit Provider Internal Medicine Medical Oncology | DX: I82.401 Acute embolism and thrombosis of unspecified deep veins of right lower extremity (principal); Z51.81 Encounter for therapeutic drug level monitoring; Z79.01 Long term (current) use of anticoagulants | CPT/HCPCS: 85610; 99211 ==